=== PATIENT | male | born 1975 | race Hispanic/Latino ===

== ENCOUNTER 2017-03-25 14:46 | Emergency (ER) | payer SELFPAY | END 2017-03-25 15:00 | disposition left against medical advice (07) | LOC: ED 14:46 | DX: K08.89 Other specified disorders of teeth and supporting structures (principal); Z53.21 Procedure and treatment not carried out due to patient leaving prior to being seen by health care provider ==

== ENCOUNTER 2017-03-27 14:26 | Inpatient (IN) | payer SELFPAY ==
[2017-03-27] MEDS ORDERED: MORPHINE IV ONE (16:17)
[2017-03-27] MEDS ORDERED: ZOFRAN IV ONE ×2 (16:17→17:07)
[2017-03-27 17:02] LABS: Basophils % (Auto) 0.8 % (0.0-1.8); Eosinophils % (Auto) 0.4 % (0.0-4.3); Hemoglobin 11.3 gm/dl (11.8-15.2); Mean Corpuscular HGB Conc 32 % (32-34); Mean Corpuscular Hemoglobin 27 pg (28-32); Mean Corpuscular Volume 84 fl (84-94); Platelet Count 263 K/mm3 (140-440); Red Blood Count 4.15 M/mm3 (3.65-5.03); White Blood Count 8.7 K/mm3 (4.5-11.0)
[2017-03-27] MEDS ORDERED: NACL 0.9% 1000 ML 2,000 ML ONE (17:06)
[2017-03-27] MEDS ORDERED: NACL 0.9% 1000 ML 2,000 ML IV ONE (17:07)
[2017-03-27 17:22] LABS: Anion Gap 35 mmol/L; BUN/Creatinine Ratio 19.52; Blood Urea Nitrogen 41 mg/dL (9-20); Calcium 9.5 mg/dL (8.4-10.2); Carbon Dioxide 16 mmol/L (22-30); Chloride 86.9 mmol/L (98-107); Glucose 457 mg/dL (75-100); Potassium 5.4 mmol/L (3.6-5.0); Sodium 132 mmol/L (137-145)
[2017-03-27] MEDS ORDERED: D50W (25GM) IV PRN ×3 (17:26→17:59)
--- NOTE | 2017-03-27 17:40 | Emergency Department Report ---
HPI - General Chief Complaint: Dizziness Time Seen by Provider: 03/27/17 16:08 - HPI HPI: The patient is a 42-year-old male with a history of type 1 diabetes, who presents for evaluation of abdominal pain and ill-filling. The patient reports upper abdominal pain since last night, nearly 24 hours ago, constant since onset , currently mild, 5/10 in severity, crampy in quality, exacerbated with retching. He also reports associated nausea and multiple episodes of nonbilious , nonbloody emesis, boarded blood. He states that his symptoms feel consistent with previous episodes of DKA. The patient denies fever, chills, night sweats, diarrhea, blood in the stool, dark tarry stool, dysuria, hematuria, flank pain, genital discharge, inability to pass flatus. ED Past Medical Hx - Past Medical History Hx Hypertension: No Hx Heart Attack/AMI: No Hx Congestive Heart Failure: No Hx Diabetes: Yes Hx Deep Vein Thrombosis: No Hx Pulmonary Embolism: No Hx GERD: No Hx Liver Disease: Yes (hep c) Hx Renal Disease: No Hx Arthritis: No Hx Kidney Stones: No Hx Asthma: No Hx COPD: No Hx Tuberculosis: No Hx HIV: No Additional medical history: Hepatitis C - Surgical History Hx Coronary Stent: No Hx Open Heart Surgery: No Hx Pacemaker: No Hx Internal Defibrillator: No Hx Cholecystectomy: No Hx Appendectomy: No Hx Breast Surgery: No Additional Surgical History: tonsillectomy - Social History Smoking Status: Current Every Day Smoker Substance Use Type: None - Medications Home Medications: Home Medications Medication Instructions Recorded Confirmed Last Taken Type Xanax TAB 0.5 mg PO BID 07/26/16 03/27/17 03/26/17 History Insulin Lispro [Humalog Kwikpen 10 units SQ TIDAC 03/27/17 03/27/17 03/26/17 History U-100] Lantus Solostar 15 units SQ HS 03/27/17 03/27/17 03/26/17 History ED Review of Systems ROS: Stated complaint: DIABETIC Other details as noted in HPI Physical Exam - Physical Exam Vital Signs: Vital Signs 03/27/17 03/27/17 03/27/17 15:38 16:30 16:48 Temperature 97.8 F Pulse Rate 102 H 84 Respiratory 16 18 18 Rate Blood Pressure 90/52 Blood Pressure 105/64 [Left] O2 Sat by Pulse 100 100 100 Oximetry Physical Exam: General: well-nourished, well-developed, no acute distress Head: Normocephalic, atraumatic Eyes: normal sclera ENT: Mucous membranes are pale and dry Neck: No neck stiffness, no cervical adenopathy Respiratory: Breath sounds equal bilaterally, no wheezing, rales, or rhonchi Cardio: S1 and S2 present, no murmurs, rubs, gallops, capillary refill is delayed Abdomen: Normoactive bowel sounds, soft abdomen, epigastric and periumbilical tenderness to palpation present, no rigidity, no guarding or rebound tenderness Musc: No pitting edema Skin: No rash Neuro: no facial drooping, normal speech Psych: Normal affect ED Course Vital Signs 03/27/17 03/27/17 03/27/17 15:38 16:30 16:48 Temperature 97.8 F Pulse Rate 102 H 84 Respiratory 16 18 18 Rate Blood Pressure 90/52 Blood Pressure 105/64 [Left] O2 Sat by Pulse 100 100 100 Oximetry ED Medical Decision Making - Lab Data Result diagrams: 03/27/17 16:39 03/27/17 20:01 - Medical Decision Making The patient was seen and examined by myself. The patient is placed on a hall monitor and continuous pulse ox. On initial evaluation, the patient was found to be in no distress. Evaluation orders are placed. IV access is established and the patient is given 1 L normal saline fluid bolus for treatment of dehydration and hyperglycemia, and Zofran for nausea, and IV analgesic for pain. Multiple bedside assessments were performed to assess patient's responsiveness to medications and resuscitation. Lab results reveal elevated glucose level of 474, low pH of 7.24, elevated anion gap, low bicarbonate, consistent with DKA, elevated potassium level V.4, elevated creatinine of 2.1, and elevated lactic acid of 7.9. The patient is given additional normal saline fluid bolus, IV insulin bolus, and started on IV insulin drip. The on-call hospitalist service was contacted. They agreed to admit the patient for further treatment and close monitoring. The ED admit order was placed. The patient was admitted in guarded condition. Critical Care Time: Yes Critical care time in (mins) excluding proc time.: 35 Critical care attestation.: Due to the critical nature of this patients presentation, which necessitated multiple bedside assessments, manipulation and supportive measures to prevent further life threatening deterioration, I would like to bill for a total of 35 minutes of critical care time. This was exclusive of any separately billable procedures. Critical Care Time: 35 min ED Disposition Clinical Impression: Dehydration, Nausea and vomiting in adult, Abdominal pain, acute, epigastric, Acute hyperkalemia DKA, type 1 Qualifiers: Diabetes mellitus complication detail: with coma Qualified Code(s): E10.11 - Type 1 diabetes mellitus with ketoacidosis with coma Acute renal failure Qualifiers: Acute renal failure type: unspecified Qualified Code(s): N17.9 - Acute kidney failure, unspecified Disposition: [id number] OP ADMIT IP TO THIS HOSP Is pt being admited?: Yes Does the pt Need Aspirin: Yes Condition: Critical Time of Disposition: 17:40
[2017-03-27] MEDS ORDERED: BABY ASPIRIN PO ONE (17:41)
--- NOTE | 2017-03-27 17:56 | Admit Criteria Form ---
Admission Criteria Documentation: GENERAL ADMISSION CRITERIA (Place 'X' for any and all applicable criteria): Admission is indicated for ANY ONE of the following: [ ]I. Hemodynamic instability as indicated by ANY ONE of the following(1)(2) (3)(4)(5): [ ]a) Vital sign abnormality not readily corrected by appropriate treatment within 12 to 24 hours indicated by ANY ONE of the following: [ ]i) Hypotension [ ]ii) Symptomatic Tachycardia unresponsive to treatment (eg , analgesia, fluids, sedation as indicated) [ ]iii) Orthostatic vital sign changes unresponsive to treatment (eg, fluids) [ ]b) Vital sign abnormality that is severe indicated by ANY ONE of the following: [ ]i) Inadequate perfusion indicated by ANY ONE of the following: [ ]1) Lactic acidosis (greater than 2 mmol/L) [ ]2) New abnormal capillary refill (greater than 3 seconds) [ ]3) Other metabolic acidosis (arterial pH less than 7.35) not otherwise explained [ ]4) Reduced urine output [ ]5) Altered mental status [ ]6) Myocardial Ischemia [ ]v) Mean arterial pressure[A] less than 60 mm Hg [ ]vi) Mean arterial pressure[A] less than 70 mm Hg after 30 minutes of appropriate treatment (eg, fluid resuscitation) [ ]vii) IV inotropic or vasopressor medication required to maintain adequate blood pressure or perfusion [ ]viii) Sustained heart rate greater than 120 beats per minute in adult or child 6 years or older[B]] [ ]II. Hypertension requiring inpatient treatment as indicated by ANY ONE of the following(6)(7)(8): [ ]a) SBP greater than 220 mm Hg or DBP greater than 120 mm Hg despite treatment [ ]b) SBP greater than 140 mm Hg or DBP greater than 100 mm Hg with evidence of acute end organ damage as indicated by ANY ONE of the following: [ ]i) Encephalopathy [ ]ii) Acute renal failure as indicated by new onset of ANY ONE of the following(9)(10)(11)(12)(13): [ ]1) A 3-fold rise in serum creatinine from baseline [ ]2) Serum creatinine greater than 4 mg/dL ( 354 micromoles/L) with acute rise greater than 0.5 mg/dL (44.2 micromoles/L) [ ]3) Reduction of more than 75% in estimated glomerular filtration rate from baseline [ ]4) Estimated glomerular filtration rate less than 35 mL/min/1.73m2 (0.59 mL/sec/1.73m2) in child up to 18 years of age [ ]5) Cessation of urine output indicated by ALL of the following: [ ]A. Adequate volume status [ ]B. Inadequate urine output as indicated by ANY ONE of the following: [ ]a. Urine output less than 0.3 mL/kg/hr for 24 hours [ ]b. Anuria (urine output less than 0.1 mL/kg/hr) for 12 hours [ ]iii) Aortic dissection [ ]iv) Myocardial ischemia [ ]v) Left ventricular heart failure [ ]vi) Retinal hemorrhage [ ]vii) Other significant finding [ ]c) Hypertension in child requiring inpatient treatment as indicated by ALL of the following(14)(15)(16): [ ]i) Outpatient treatment not effective, not available, or not appropriate [ ]ii) SBP or DBP greater than 95th percentile for age [ ]iii) Evidence of acute end organ damage as indicated by ANY ONE of the following: [ ]1) Altered mental status [ ]2) Acute renal failure as indicated by new onset of ANY ONE of the following(9)(10)(11)(12)(13): [ ]A. A 3-fold rise in serum creatinine from baseline [ ]B. Serum creatinine greater than 4 mg/dL (354 micromoles/L) with acute rise greater than 0.5 mg/dL (44.2 micromoles/L) [ ]C. Reduction of more than 75% in estimated glomerular filtration rate from baseline [ ]D. Estimated glomerular filtration rate less than 35 mL/min/1.73m2 (0.59 mL/sec/1.73m2)in child up to 18 years of age [ ]E. Cessation of urine output indicated by ALL of the following: [ ]a. Adequate volume status [ ]b. Inadequate urine output as indicated by ANY ONE of the following: [ ]1) Urine output less than 0.3 mL/kg/hr for 24 hours [ ]2) Anuria (urine output less than 0.1 mL/kg/hr) for 12 hours [ ]3) Severe headache [ ]4) Visual disturbance [ ]5) Retinal hemorrhage [ ]6) Other significant finding [ ]III. Acute cardiac or peripheral ischemia as indicated by ANY ONE of the following: [ ]a) Acute coronary syndrome(17)(18) [ ]b) Acute peripheral ischemia (eg, pulseless, cool, mottled, or cyanotic extremity)(19) [ ]IV. Cardiac arrhythmias or findings of immediate concern indicated by ANY ONE of the following(20)(21): [ ]a) Heart rhythms that are inherently dangerous or unstable indicated by ANY ONE of the following(22)(23)(24): [ ]i) Resuscitated ventricular fibrillation or cardiac arrest [ ]ii) Ventricular escape rhythm [ ]iii) Sustained ventricular tachycardia (30 seconds or more of ventricular rhythm at greater than 100 beats per minute) [ ]iv) Nonsustained ventricular tachycardia and ANY ONE of the following: [ ]1) Suspected cardiac ischemia as cause or consequence of ventricular tachycardia [ ]2) In setting of acute myocarditis [ ]b) Unstable cardiac conduction defects indicated by ANY ONE of the following(24)(25)(26): [ ]i) Type II second-degree atrioventricular block [ ]ii) Third-degree atrioventricular block [ ]iii) New-onset left bundle branch block with suspected myocardial ischemia [ ]c) Any heart rhythm and ANY ONE of the following(22)(23)(27)(28)( 29): [ ] i) Continuous long-term ECG monitoring needed (eg, initiation of drug requiring monitoring for more than 24 hours) [ ] ii) Patient has automatic implanted cardioverter defibrillator that is repeatedly firing, malfunctioning, or in need of immediate adjustment of settings beyond the scope of ambulatory or observation care. [ ]d) Heart rhythms of concern due to ANY ONE of the following: [ ]i) Hypotension [ ]ii) Respiratory distress [ ]iii) Association with other significant symptoms (eg, bradycardia with syncope or ongoing dizziness, supraventricular tachycardia with chest pain) (27)(28) (30) [ ] V. Severe heart failure as indicated by ANY ONE of the following ( 31)(32): [ ]a) Respiratory distress [ ]b) Hypotension [ ]c) Anasarca (refractory to outpatient therapy) [ ]d) Cardiac arrhythmias of immediate concern [ ]e) Myocardial ischemia [ ]. Respiratory abnormalities, including ANY ONE of the following(33)(34) (35)(36): [ ]a) Respiratory rate greater than 30 breaths per minute unresponsive to treatment [A] [ ]b) New saturation of arterial oxygen less than 90% [ ]c) New partial pressure of carbon dioxide greater than 44 mm Hg ( 5.9 kPa) [ ]d) Supplemental oxygen or respiratory treatments needed that are new or not performable at other levels of care [ ]e) New-onset cyanosis [ ]f) Inability to protect airway [ ]g) Chronic lung disease with severe deterioration (not responsive to emergency and observation care treatment as appropriate) as indicated by ANY ONE of the following(34)(36 ): [ ]i) SaO2 5% below baseline in patient with chronic hypoxemia [ ]ii) New requirement for supplemental oxygen to keep SaO2 at baseline or acceptable level [ ]iii) Required supplemental oxygen performable only in acute inpatient setting [ ]iv) Severe airflow or ventilation abnormalities [ ]v) Previously mobile patient unable to walk between rooms [ ]vi Inability to eat or sleep due to dyspnea [ ]vii) Rapid rate of exacerbation onset [ ]viii) Altered mental status ]VII. Severe airflow or ventilation abnormalities (not responsive to emergency and observation care treatment as appropriate) as indicated by ANY ONE of the following(33)(34)(35)(37): [ ]a) PCO2 greater than 42 mm Hg (5.6 kPa) and pH less than 7.35 (new ) [ ]b) Documented PCO2 increased more than 5 mm Hg (0.7 kPa) from disease baseline [ ]c) Airflow measurements [B] less than 60% of previous best or predicted (eg, peak expiratory flow rate less than 300 L/minute) despite intensive emergent treatment [C] [ ]d) Required respiratory treatments that are performable only in acute inpatient setting [ ]VIII. Impending or actual respiratory arrest ( Also use Respiratory Failure GRG for severe respiratory disease and long-term mechanical ventilation patients) [ ]IX. Neurologic abnormalities, including ANY ONE of the following: [ ]a) New findings that suggest ANY ONE of the following: [ ]i) CHIP PERSON infection(38) [ ]ii) Cerebral bleeding, ischemia, or vasospasm(39)(40) [ ]iii) Increased intracranial pressure, hydrocephalus, or cerebral edema(41)(42)(43) [ ]iv) Spinal cord injury(44) [ ]b) Uncontrolled seizures(45) [ ]c) New-onset coma (eg, [place] coma scale score less than 9) or unexplained abnormal mental status (eg, [place] coma scale score less than 14) [D](41)(46)(47) [ ]X. New-onset severe neurologic findings requiring inpatient care; examples include(42)(48)(49): [ ]a) Papilledema [ ]b) Cerebral edema [ ]c) Mass effect on CT scan [ ]XI. Suspected acute intra-abdominal process with peritoneal signs, abdominal mass, or similar findings (50)(51)(52) [X ]XII. Severe physiologic disorder remaining after emergency or observation level care (as appropriate) as indicated by ANY ONE of the following (53): [X ]a) Significant dehydration [X ]b) Diabetic ketoacidosis [ ]c) Hyperglycemic hyperosmolar state (eg, osmolality greater than 320 mOsm/kg (mmol/kg) [ ]d) Hypoglycemia [ ]e) Other (new) acid-base disorder with pH less than 7.35 or greater than 7.5(54) [ ]f) Thyroid storm (55) [ ]g) Myxedema coma (55) [ ]XIII. Abdominal abnormalities with ANY ONE of the following(56)(57): [ ]a) Absent bowel sounds with complete ileus [ ]b) Signs of intestinal obstruction or peritonitis [E] [ ]c) Nausea and vomiting that cannot be controlled with outpatient or observation care [ ]XIV. Acute renal failure as indicated by new onset of ANY ONE of the following(9)(10)(11)(12)(13): [ ]a) A 3-fold rise in serum creatinine from baseline [ ]b) Serum creatinine greater than 4 mg/dL (354 micromoles/L) with acute rise greater than 0.5 mg/dL (44.2 micromoles/L) [ ]c) Reduction of more than 75% in estimated glomerular filtration rate from baseline [ ]d) Estimated glomerular filtration rate less than 35 mL/min/ 1.73m2 (0.59 mL/sec/1.73m2) in child up to 18 years of age [ ]e) Cessation of urine output indicated by ALL of the following: [ ]i) Adequate volume status [ ]ii) Inadequate urine output as indicated by ANY ONE of the following: [ ]1) Urine output less than 0.3 mL/kg/hr for 24 hours [ ]2) Anuria (urine output less than 0.1 mL/kg/hr) for 12 hours [ ]XV. Significant uremic complications as indicated by ANY ONE of the following(58)(59)(60): [ ]a) Outpatient therapy is ineffective or not feasible for ANY ONE of the following: [ ]i) Severe heart failure [ ]ii) Severehypertension [ ]iii) Pleural effusion [ ]iv) Pericarditis or pericardial effusion [ ]b) Cardiac arrhythmias of immediate concern [ ]c) Intractable nausea or vomiting [ ]d) Recurrent seizures [ ]e) Encephalopathy [ ]f) Bleeding abnormalities (eg, platelet dysfunction) with active (eg, gastrointestinal) bleeding [ ]g) Dialysis indicated before long-term access or ambulatory arrangements can be made [ ]h) Significant metabolic or electrolyte abnormalities (eg, severe acidosis or hyperkalemia) [ ]XVI. High fever or other high-risk infection situation as indicated by ANY ONE of the following(61)(62)(63)(64): [ ]a) Outpatient and observation care antimicrobial treatment unavailable, not effective, or not appropriate [ ]b) Documented bacteremia [ ]c) Temperature greater than 40.5 degrees C (104.9 degrees F) ( oral) [ ]d) Temperature greater than 39.5 degrees C (103.1 degrees F) ( oral) or less than 36 degrees C (96.8 degrees F) (rectal) that does not respond to e treatment and observation care [ ] XVII. Temperature less than 95 degrees F (35 degrees C)(rectal)(65) [ ] XVIII. Severe nutritional abnormalities as indicated by ALL of the following (66)(67): [ ]a) Inability to tolerate or establish sufficient oral or other enteral nutrition in outpatient setting [ ]b) Parenteral nutrition regimen need that must be implemented on inpatient basis [ ] XIX. Severe electrolyte abnormalities indicated by ALL of the following(68) (69)(70): [ ]a) Electrolytes and associated findings are not as expected for patient baseline or acceptable treatment effects. [ ]b) Severe abnormalities indicated by ANY ONE of the following: [ ]i) Sodium less than 130 mEq/L (mmol/L) (new) [ ]ii)Sodium less than 135 mEq/L (mmol/L) with ANY ONE of the following: [ ]1) Uncorrectable (to near normal or chronic baseline) after trial of outpatient and emergency treatment [ ]2) Altered mental status [ ]3) Seizures [ ]4) Severe medical etiology requiring inpatient management (eg, heart failure, hypovolemia) [ ]iii) Sodium greater than 155 mEq/L (mmol/L) [ ]iv) Sodium greater than 150 mEq/L (mmol/L) with ANY ONE of the following: [ ]1) Uncorrectable (to near normal or chronic baseline) with outpatient and emergency treatment [ ]2) Altered mental status [ ]3) Seizures [ ]4) Severe medical etiology (eg, hypovolemia, diabetes insipidus) [ ]v) Potassium less than 2.5 mEq/L (mmol/L) despite outpatient and emergency treatment [ ]vi) Potassium less than 3 mEq/L (mmol/L) with ANY ONE of the following: [ ]1) Weakness [ ]2) Cardiac abnormality (eg, arrhythmia, conduction disturbance) [ ]3) Cardiac ischemia [ ]4) Ileus [ ]5) Ongoing medical cause requiring inpatient management (eg, acute renal wasting or SIADH) [ ]6) Other severe symptoms [ ]vii) Potassium greater than 6.5 mEq/L (mmol/L) [ ]viii) Potassium greater than 5 mEq/L (mmol/L) with ANY ONE of the following: [ ]1) Uncorrectable (to near normal or chronic baseline) with outpatient and emergency treatment [ ]2) Severe ECG findings [F] [ ]3) Acute worsening of renal failure (creatinine greater than 2.5 mg/dL (221 micromoles/L) or significant elevation for age and size) [ ]4) Severe weakness [ ]5) Severe medical etiology (eg, hemolysis, infection, drug overdose) [ ]ix) Calcium less than 7 mg/dL (1.75 mmol/L) despite outpatient and emergency treatment (72) [ ]x) Calcium less than 8 mg/dL (2 mmol/L) with significant symptoms or findings; examples include(72): [ ]1) Altered mental status [ ]2) Muscle spasms [ ]3) Seizures [ ]4) Breathing difficulty [ ]5) Cardiac abnormality (eg, arrhythmia or conduction disturbance) [ ]xi) Calcium greater than 14 mg/dL (3.5 mmol/L)(72) [ ]xii) Calcium greater than 12 mg/dL (3 mmol/L) with ANY ONE of the following(72): [ ]1) Uncorrectable (to near normal or chronic baseline) with outpatient and emergency treatment [ ]2) Significant dehydration or hypovolemia as indicated by ALL of the following(70)(73)(74): [ ]A. Not resolved with initial treatments [ ]B. Clinically significant dehydration as indicated by ANY ONE of the following: [ ]a. Vomiting refractory to outpatient treatment (ie, precluding oral rehydration) [ ]b. Inability to drink [ ]c. Hypernatremia or other electrolyte abnormality unable to be corrected with outpatient and emergency treatment [ ]d. Failure to remain hydrated with outpatient therapy [ ]e. Reduced urine output [ ]f. Hypotension [ ]g. Serious cause for dehydration requiring acute hospitalization (eg, bowel obstruction, increased intracranial pressure, infectious cause) [ ]h. Child with ANY ONE of the following(75): [ ]1) Severe abdominal tenderness [ ]2) Adequate care not available at home [ ]3) Severe dehydration ( greater than 9% loss of body weight) [ ]4) Significant symptoms or findings; examples include: [ ]A. Altered mental status [ ]B. Cardiac abnormality (eg, arrhythmia, conduction disturbance) [ ]C. Malignant etiology requiring inpatient treatment [ ]xiii) Phosphorus less than 1 mg/dL (0.32 mmol/L) [ ]xiv) Phosphorus less than 1.5 mg/dL (0.48 mmol/L) with ANY ONE of the following: [ ]1) Patient unresponsive to outpatient and emergency treatment [ ]2) Significant symptoms or findings; examples include: [ ]A. Weakness [ ]B. Altered mental status [ ]C. Breathing difficulty [ ]D. Seizures [ ]E. Rhabdomyolysis [ ]xv) Phosphorus greater than 10 mg/dL (3.2 mmol/L) [ ]xvi) Phosphorus greater than 4.5 mg/dL (1.45 mmol/L) (new) with ANY ONE of the following: [ ]1) Severe medical etiology (eg, crush injury, acute renal failure) [ ]2) Associated hypocalcemia with significant findings; examples include: [ ]A. Neurologic symptoms [ ]B. Altered mental status [ ]C. Muscle spasms [ ]D. Seizures [ ]E. Breathing difficulty [ ]F. Cardiac abnormality (eg, arrhythmia, conduction disturbance) [ ]xvii) Magnesium less than 1 mg/dL (0.41 mmol/L) [ ]xviii) Magnesium less than 1.5 mg/dL (0.62 mmol/L) with ANY ONE of the following: [ ]1) Patient unresponsive to outpatient and emergency treatment [ ]2) Associated hypocalcemia with significant findings; examples include: [ ]A. Altered mental status [ ]B. Muscle spasms [ ]C. Seizures [ ]D. Breathing difficulty [ ]E. Cardiac abnormality (eg, arrhythmia , conduction disturbance) [ ]3) Associated hypokalemia (potassium less than 3 mEq/L (mmol/L)) with risk of arrhythmia [ ]xix) Magnesium greater than 4 mEq/L (2 mmol/L) [ ]xx) Magnesium greater than 2.5 mEq/L (1.25 mmol/L) with significant symptoms or findings; examples include: [ ]1) Weakness [ ]2) Altered mental status [ ]3) Cardiac abnormality (eg, arrhythmia, conduction disturbance) [ ]4) Breathing difficulty [ ]5) Severe medical etiology (eg, renal failure, hypovolemia) [ ]xxi) Uric acid greater than 20 mg/dL (1190 micromoles/L)(76) [ ]xxii) Uric acid greater than 8 mg/dL (476 micromoles/L) with significant symptoms or findings of tumor lysis syndrome; examples include(76): [ ]1) Creatinine greater than 1.5 times upper limit of normal [ ]2) Cardiac abnormality (eg, arrhythmia, conduction disturbance) [ ]3) Seizure [ ]XX. Acute blood loss causing significant abnormality as indicated by ANY ONE of the following(77)(78): [ ]a) Hemoglobin less than 10 g/dL (100 g/L) (not baseline) [ ]b) Hematocrit less than 30% (0.30) (not baseline) [ ]c) Repeat hematocrit decreased more than 2% (0.02) [ ]d) Uncontrolled bleeding [ ]XXI. Severe anemia indicated by ANY ONE of the following(78)(79): [ ]a) Altered mental status [ ]b) Chest pain [ ]c) Exertional dyspnea [ ]d) Syncope [ ]e) Other findings suggesting inadequate perfusion [ ]f) Treatment with transfusion or volume replacement is ineffective at resolving ANY ONE of the following [G]: [ ]i) Tachycardia for age [ ]ii) Orthostatic vital sign changes as indicated by ANY ONE of the following(80): [ ]1) Fall in SBP of 20 mm Hg or more 1 to 3 minutes after patient sits or stands from recumbent position [ ]2) Fall in DBP of 10 mm Hg or more 1 to 3 minutes after patient sits or stands from recumbent position [ ]XXII. High-risk low platelet count as indicated by ANY ONE of the following( 81)(82): [ ]a) Severe or life-threatening bleeding (eg, intracranial, major gastrointestinal, or extensive mucosal bleeding), with any reduced platelet count [ ]b) Platelet count less than 20,000/mm3 (20 x109/L) with any active bleeding [ ]c) Platelet count less than 10,000/mm3 (10 x109/L) with minor purpura or petechiae [ ]d) Platelet count less than 5000/mm3 (5 x109/L) [ ]e) Low platelet count with hemolytic anemia [ ]XXIII. Disseminated intravascular coagulation(77)(83) [ ]XXIV. Severe adverse drug or systemic toxin reaction requiring inpatient treatment; examples include(84)(85): [ ]a) Serotonin syndrome(86) [ ]b) Neuroleptic malignant syndrome(86) [ ]c) Cholinergic syndrome with severe symptoms (eg, bronchorrhea, weakness, mental status changes, seizures) [ ]d) Sympathetic syndrome with severe symptoms (eg, seizures, mental status changes, cardiac dysrhythmias) [ ]e) Anticholinergic syndrome [ ]XXV. Severe pain requiring acute inpatient management as indicated by ALL of the following (87)(88)(89): [ ]a) Continuous or frequent (eg, every 2 to 4 hours) parenteral analgesics required [H] [ ]b) Rapid improvement expected from treatment or acute intervention (eg, surgery, anesthesia procedure) [ ]XXVI.Severe behavioral health issues judged unmanageable at a lower level of care (eg, residential) in a patient who is ANY ONE of the following(91) [ ]a) Acutely suicidal [ ]b) A danger to self (eg, self-mutilating or suicidal behavior) [ ]c) A danger to others (eg, assaultive or homicidal behavior) [ ]d) Incapacitated because of grave disability (eg, inability to provide for self at lower level of care) (92) [ ]XXVII. Inpatient monitoring needed; examples include(1)(3)(87)(93)(94)(95)(96 ): [ ]a) Vital signs, neurologic signs, or vascular checks more frequently than every 4 hours [ ]b) Cardiac or respiratory monitoring beyond the scope (eg, over 24 hours) of observation care [ ]c) Pulmonary artery catheter monitoring [ ]d) Suspected compartment syndrome(97) (98) [ ]e) Cerebral bleeding, hydrocephalus, or vasospasm monitoring [ ]f) Increased intracranial pressure or cerebral edema monitoring [ ]g) monitoring [ ]XXVIII. Treatment requiring inpatient care; examples include: [ ]a) IV fluid to replace significant ongoing losses (greater than 3 L/m2 per day)(53) [ ]b) High concentration oxygen (greater than 40%)(33)(99)(100) [ ]c) Frequent respiratory therapy (more frequently than every 4 hours) to maintain airflow rates greater than 60% of baseline(33)(99)(100) [ ]d) Epidural analgesia(87) [ ]e) IV anticoagulation, vasoactive, or antiarrhythmic medication(19 )(23) [ ]f) Acute thrombolytics (generally require 24 hours of observation )(101)(102) [ ]XXIX. Emergency procedures needed; examples include: [ ]a) Emergency inpatient surgery [ ]b) Temporary pacemaker placement(103) [ ]c) Chest tube placement with active evacuation (eg, suction, drainage)(104) [ ]d) Emergent cardioversion(105) [ ]e) Emergent cardiac or vascular procedures (eg, cardiac catheterization, angioplasty) (17)(18) [ ]f) Emergent dialysis access placement and institution(10)(106) [ ]g) Emergent pericardiocentesis(107) [ ]h) Emergent plasmapheresis or leukapheresis(83) [ ]i) Emergent tracheostomy The original [employer] content created by [employer] has been revised. The portions of the content which have been revised are identified through the use of italic text or in bold, and [employer] has neither reviewed nor approved the modified material. All other unmodified content is copyright [employer]. Please see references footnoted in the original [employer] edition 2016 Admission Criteria Met: Yes
[2017-03-27] MEDS ORDERED: DUONEB *Not for PRN Use IH (17:59)
[2017-03-27] MEDS ORDERED: NACL 0.9% 1000 ML 1,000 ML IV ONE (17:59)
[2017-03-27] MEDS ORDERED: NovoLIN R 100 UNITS in NACL 0.9% 99 ML IV SCH ×2 (18:00)
[2017-03-27] MEDS ORDERED: D5W/0.45% NACL/KCL 20 MEQ 20 MEQ/1,000 ML BAG IV SCH (18:00)
--- NOTE | 2017-03-27 18:04 | History and Physical Report ---
History of Present Illness Chief complaint: Im in DKA History of present illness: 42 YO Male with DM, HCV, Nicotine Dependence presents to ED for evaluation. Pt states that has experienced Nausea, vomiting, abdominal pain for the past 24 hours with worsening symptoms over the past 4 hours. Pt states that the ab pain followed the nausea and vomiting, constant in nature, mild in severity, 5/10 in severity, crampy in quality, exacerbated with retching, relieved with not vomiting. Patient denies fever, chills, CP, Palpitations, night sweats, diarrhea, BRBPR, dark tarry stool, dysuria, hematuria, flank pain, genital discharge, inability to pass flatus, recent ill contacts, or noncompliance with medication. Past History Past Medical History: diabetes, hepatitis, other (Nicotine Dependence) Past Surgical History: tonsillectomy Social history: , smoking. denies: alcohol abuse, prescription drug abuse, IV drug use Family history: diabetes, hypertension Medications and Allergies Allergies Allergy/AdvReac Type Severity Reaction Status Date / Time No Known Allergies Allergy Verified 07/26/16 17:02 Home Medications Medication Instructions Recorded Confirmed Last Taken Type Xanax TAB 0.5 mg PO BID 07/26/16 03/27/17 03/26/17 History Insulin Lispro [Humalog Kwikpen 10 units SQ TIDAC 03/27/17 03/27/17 03/26/17 History U-100] Lantus Solostar 15 units SQ HS 03/27/17 03/27/17 03/26/17 History Active Meds: Active Medications Albuterol/Ipratropium (Duoneb *Not For Prn Use*) 1 ampul IH Q6HRT PRN PRN Reason: Wheezing Dextrose (D50w (25gm)) 0 ml IV PRN PRN PRN Reason: Hypoglycemia Dextrose (D50w (25gm)) 0 ml IV PRN PRN PRN Reason: Hypoglycemia Dextrose (D50w (25gm)) 0 ml IV ONCE PRN PRN Reason: Hypoglycemia Sodium Chloride (Nacl 0.9% 1000 Ml) 2,000 mls @ 999 mls/hr IV BOLUS ONE Stop: 03/27/17 19:07 Last Admin: 03/27/17 17:12 Dose: 999 mls/hr Insulin Human Regular 100 (units/ Sodium Chloride) 100 mls @ 1 mls/hr IV TITR SHELIA; 1 UNITS/HR PRN Reason: Protocol Potassium Chloride/Dextrose/Sod Cl (D5w/0.45% Nacl/Kcl 20 Meq) 20 meq in 1,000 mls @ 125 mls/hr IV DIRECT SHELIA Sodium Chloride (Nacl 0.9% 1000 Ml) 1,000 mls @ 999 mls/hr IV BOLUS ONE Stop: 03/27/17 18:59 Insulin Human Regular 100 (units/ Sodium Chloride) 100 mls @ 1 mls/hr IV TITR SHELIA; 1 UNITS/HR PRN Reason: Protocol Review of Systems All systems: negative Constitutional: no weight loss, no night sweats Ears, nose, mouth and throat: no ear pain Cardiovascular: no chest pain Respiratory: no cough Gastrointestinal: abdominal pain, nausea, vomiting Genitourinary Male: no dysuria Rectal: no pain Musculoskeletal: no neck stiffness Integumentary: no rash Neurological: no head injury Psychiatric: no anxiety Endocrine: polyphagia, polydipsia, polyuria, no cold intolerance Hematologic/Lymphatic: no easy bruising Allergic/Immunologic: no urticaria Exam - Constitutional Vitals: Temp Pulse Resp BP Pulse Ox 97.8 F 84 18 105/64 100 03/27/17 15:38 03/27/17 16:30 03/27/17 16:48 03/27/17 16:30 03/27/17 16:48 General appearance: Present: mild distress - EENT Eyes: Present: PERRL ENT: hearing intact, clear oral mucosa - Neck Neck: Present: supple, normal ROM - Respiratory Respiratory effort: normal Respiratory: bilateral: CTA - Cardiovascular Heart Sounds: Present: S1 & S2. Absent: rub, click - Extremities Extremities: pulses symmetrical, No edema Peripheral Pulses: within normal limits - Abdominal General gastrointestinal: Present: soft, non-tender, non-distended, normal bowel sounds Male genitourinary: Present: normal - Integumentary Integumentary: Present: clear, warm, dry - Musculoskeletal Musculoskeletal: gait normal, strength equal bilaterally - Psychiatric Psychiatric: appropriate mood/affect, intact judgment & insight - Neurologic Neurologic: CNII-XII intact, moves all extremities Results - Labs CBC & Chem 7: 03/27/17 16:39 03/27/17 20:01 Labs: Abnormal lab results 03/27/17 03/27/17 03/27/17 Range/Units 15:46 16:39 16:39 Hgb 11.3 L (11.8-15.2) gm/dl Hct 35.0 L (35.5-45.6) % MCH 27 L (28-32) pg RDW 16.0 H (13.2-15.2) % VBG pH (7.320-7.420) Sodium 132 L (137-145) mmol/L Potassium 5.4 H (3.6-5.0) mmol/L Chloride 86.9 L (98-107) mmol/L Carbon Dioxide 16 L (22-30) mmol/L BUN 41 H (9-20) mg/dL Creatinine 2.1 H (0.8-1.5) mg/dL Glucose 457 H (75-100) mg/dL POC Glucose 474 H (70-105) Lactic Acid (0.7-2.0) mmol/L 03/27/17 03/27/17 Range/Units 16:39 17:30 Hgb (11.8-15.2) gm/dl Hct (35.5-45.6) % MCH (28-32) pg RDW (13.2-15.2) % VBG pH 7.242 L (7.320-7.420) Sodium (137-145) mmol/L Potassium (3.6-5.0) mmol/L Chloride (98-107) mmol/L Carbon Dioxide (22-30) mmol/L BUN (9-20) mg/dL Creatinine (0.8-1.5) mg/dL Glucose (75-100) mg/dL POC Glucose (70-105) Lactic Acid 7.90 H* (0.7-2.0) mmol/L Assessment and Plan - Patient Problems (1) DKA, type 1 Current Visit: Yes Status: Acute Qualifiers: Diabetes mellitus complication detail: with coma Qualified Code(s): E10.11 - Type 1 diabetes mellitus with ketoacidosis with coma Plan to address problem: Insulin drip, DKA protocol, montor uop q shift, serial bmp to monitor anion gap , The high probability of a clinically significant, sudden or life threatening deterioration of the [endocrine, pulmonary, dardiac, renal] system(s) required my full and direct attention, intervention and personal management. The aggregate critical care time was [65] minutes. This time is in addition to time spent performing reported procedures but includes the following: [x] Data Review and interpretation [x] Patient assessment and monitoring of vital signs [x] Documentation [x] Medication orders and management (2) Hyponatremia syndrome Current Visit: Yes Status: Acute Plan to address problem: IVF replacement, repeat bmp, (3) Acute renal failure Current Visit: Yes Status: Acute Qualifiers: Acute renal failure type: unspecified Qualified Code(s): N17.9 - Acute kidney failure, unspecified Plan to address problem: IVF replacement, supportive care, monitor uop q shift, positive fluid balance overnight, bmp in am (4) Metabolic acidosis Current Visit: No Status: Acute Plan to address problem: Treat DKA, monitor anion gap with serial bmp (5) DVT prophylaxis Current Visit: Yes Status: Acute
[2017-03-27] MEDS ORDERED: PROVENTIL IH PRN (18:09)
[2017-03-27 18:27] LABS: Magnesium 2.1 mg/dL (1.7-2.3); Phosphorous 5.7 mg/dL (2.5-4.5)
[2017-03-27 18:52] LABS: BUN/Creatinine Ratio 20.5; Calcium 8.6 mg/dL (8.4-10.2); Magnesium 1.9 mg/dL (1.7-2.3); Phosphorous 4.9 mg/dL (2.5-4.5); Potassium 4.5 mmol/L (3.6-5.0)
[2017-03-27 20:33] LABS: BUN/Creatinine Ratio 22.94; Calcium 8.1 mg/dL (8.4-10.2); Chloride 96.6 mmol/L (98-107); Potassium 4.7 mmol/L (3.6-5.0)
[2017-03-27] MEDS ORDERED: XANAX 0.5 MG PO SCH (22:00)
[2017-03-27 22:25] LABS: BUN/Creatinine Ratio 25.33; Potassium 3.9 mmol/L (3.6-5.0)
[2017-03-27] MEDS: XANAX PO SCH (23:44)
[2017-03-28 00:52] LABS: Anion Gap 17 mmol/L; BUN/Creatinine Ratio 28.46; Blood Urea Nitrogen 37 mg/dL (9-20); Calcium 8.1 mg/dL (8.4-10.2); Carbon Dioxide 23 mmol/L (22-30); Glucose 67 mg/dL (75-100); Potassium 3.6 mmol/L (3.6-5.0); Sodium 133 mmol/L (137-145)
[2017-03-28] MEDS ORDERED: D50W (25GM) IV ONE (02:15)
[2017-03-28] MEDS: NOVOLOG SUB-Q SCH ×2 (03:11→07:50)
[2017-03-28 09:11] VITALS: BP 114/77
[2017-03-28] MEDS: XANAX PO SCH (10:24)
--- NOTE | 2017-03-28 10:29 | Discharge Summary ---
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 He presented with abd pains. He was diagnosed with DKA, however, no ketones were measured, no urinalysis were measured but his VBG was 7.242. He was started on insulin drip and quickly recovered. Insulin drip was stopped, he was downgraded from ICU and admitted to the medical floor. Currently, he is still well. He is tolerated a diet without any nausea vomiting or abdominal pains. As a matter of fact, I saw him in the lobby and I walked with him. He is feeling much better. -DKA also likely due to noncompliance, resolved, corrected anion gap Less than 14: Counseling done -Metabolic acidosis, improved -Acute renal failure, vasomotor nephropathy, present on admission -Hyponatremia due to worsening hyperglycemia -Insulin-dependent diabetes mellitus type 1 uncontrolled with hyperosmolar hyperglycemia, improved -Hypoglycemia, mild and resolved -Tobacco dependency: Counseling stopping, it appears he is going outside to smoke, counseled against this Disposition: DC-01 TO HOME OR SELFCARE Time spent for discharge: 36 minutes Core Measure Documentation - Palliative Care Palliative Care/ Comfort Measures: Not Applicable - Core Measures Any of the following diagnoses?: none - VTE Discharge Requirements Deep Vein Thrombosis/Pulmonary Embolism Present on Admission: No Has pt received <5 days of overlap therapy or INR<2.0: No Anticoagulant overlap therapy prescribed at discharge: No Contraindication No Overlap Therapy order at DC: Not Indicated Exam - Physical Exam Narrative exam: GEN: WDWN, NAD, AWAKE, ALERT, ORIENTATED x 3 HEENT: NCAT, PERRL, EOMI, OP CLEAR NECK: SUPPLE, NO THYROMEGALY, NO JVD, NO LAD CVS: RRR, NORMAL S1S2 LUNGS/CHEST: CTA B, NORMAL CHEST EXPANSION B, GOOD AIR ENTRY B ABD: SOFT, NTND, GBS, NO REBOUND OR GUARDING EXT/SKIN: NO SIGNIFICANT EDEMA MSK: FROM X 4 EXTREMITIES NEURO: CN 2-12 GROSSLY INTACT, NO FOCAL DEFICITS PSY: CALM - Constitutional Vitals: Temp Pulse Resp BP Pulse Ox 99.7 F H 82 20 114/77 99 03/28/17 07:00 03/28/17 07:00 03/28/17 07:00 03/28/17 07:00 03/28/17 07:00 Plan Activity: other (no strenous activites until cleared by PCP. ) Diet: diabetic Special Instructions: record daily BP diary Follow up with: PRIMARY CAREMD [Primary Care Provider] - 3-5 Days [facility] [Provider Group] - 7 Days Prescriptions: Insulin Lispro [Humalog 100 UNITS/ML Kwikpen] 1 dose SQ AC #1 pen
== END 2017-03-28 13:25 | disposition home or self-care (01) | DRG 637 ==
LOC: ED 14:26 → 3A 18:00
PROVIDERS: ADMIT Internal Medicine; ATTEND Internal Medicine
DX: E10.11 Type 1 diabetes mellitus with ketoacidosis with coma (principal); N17.0 Acute kidney failure with tubular necrosis; E87.1 Hypo-osmolality and hyponatremia; E87.2 Acidosis; F17.200 Nicotine dependence, unspecified, uncomplicated; Z83.3 Family history of diabetes mellitus; Z82.49 Family history of ischemic heart disease and other diseases of the circulatory system; E87.5 Hyperkalemia; E86.0 Dehydration; Z91.19 Patient's noncompliance with other medical treatment and regimen; F19.10 Other psychoactive substance abuse, uncomplicated; Z86.19 Personal history of other infectious and parasitic diseases; Z71.89 Other specified counseling; E10.65 Type 1 diabetes mellitus with hyperglycemia; E10.649 Type 1 diabetes mellitus with hypoglycemia without coma; Z71.6 Tobacco abuse counseling
CPT/HCPCS: 36415; 80048; 82140; 82805; 82962; 83036; 83735; 84100; 84484; 85025; 96360; 96361; 99291; J2405; J7030

== ENCOUNTER 2017-04-22 08:05 | Emergency (ER) | payer OTHER ==
[2017-04-22 12:00] VITALS: BP 100/65
--- NOTE | 2017-04-22 12:30 | Emergency Department Report ---
ED Extremity Problem HPI - General Chief complaint: BP Check / Ring removal req Stated complaint: LEFT HAND SWELLING/RING STUCK Time Seen by Provider: 04/22/17 11:55 Source: patient Mode of arrival: Ambulatory Limitations: No Limitations - History of Present Illness Initial comments: 42-year-old male with history of diabetes here with complaint of finger stuck on ring. Patient states that his finger started to swell yesterday he was unable to remove the ring. He went to the fire department today and they attempted to cut the ring off without success. He presents here because of knee pain and swelling. -: Gradual (1) Location: right (ring finger) Radiation: none Severity scale (0 -10): 0 Quality: aching Consistency: constant - Related Data Home Medications Medication Instructions Recorded Confirmed Last Taken Insulin Lispro [Humalog 100 10 units SQ TIDAC 03/27/17 03/27/17 03/26/17 UNITS/ML Kwikpen] Previous Rx's Medication Instructions Recorded Last Taken Type Insulin Lispro [Humalog 100 1 dose SQ AC #1 pen 03/28/17 Unknown Rx UNITS/ML Kwikpen] Lantus Solostar 15 units SQ HS #1 03/28/17 03/26/17 Rx Xanax TAB 0.5 mg PO BID #30 03/28/17 03/26/17 Rx Ibuprofen [Motrin 600 MG tab] 600 mg PO Q8H PRN #30 tablet 04/22/17 Unknown Rx Allergies Allergy/AdvReac Type Severity Reaction Status Date / Time No Known Allergies Allergy Verified 07/26/16 17:02 ED Review of Systems ROS: Stated complaint: LEFT HAND SWELLING/RING STUCK Other details as noted in HPI Constitutional: denies: chills, fever, weakness Skin: denies: rash, lesions, change in color, change in hair/nails Neurological: denies: headache, weakness Psychiatric: denies: anxiety, depression ED Past Medical Hx - Past Medical History Hx Hypertension: No Hx Heart Attack/AMI: No Hx Congestive Heart Failure: No Hx Diabetes: Yes Hx Deep Vein Thrombosis: No Hx Pulmonary Embolism: No Hx GERD: No Hx Liver Disease: Yes (hep c) Hx Renal Disease: No Hx Arthritis: No Hx Kidney Stones: No Hx Asthma: No Hx COPD: No Hx Tuberculosis: No Hx HIV: No Additional medical history: Hepatitis C - Surgical History Hx Coronary Stent: No Hx Open Heart Surgery: No Hx Pacemaker: No Hx Internal Defibrillator: No Hx Cholecystectomy: No Hx Appendectomy: No Hx Breast Surgery: No Additional Surgical History: tonsillectomy - Family History Family history: no significant - Social History Smoking Status: Current Every Day Smoker Substance Use Type: Alcohol - Medications Home Medications: Home Medications Medication Instructions Recorded Confirmed Last Taken Type Insulin Lispro [Humalog 100 10 units SQ TIDAC 03/27/17 03/27/17 03/26/17 History UNITS/ML Kwikpen] Insulin Lispro [Humalog 100 1 dose SQ AC #1 pen 03/28/17 Unknown Rx UNITS/ML Kwikpen] Lantus Solostar 15 units SQ HS #1 03/28/17 03/27/17 03/26/17 Rx Xanax TAB 0.5 mg PO BID #30 03/28/17 03/27/17 03/26/17 Rx Ibuprofen [Motrin 600 MG tab] 600 mg PO Q8H PRN #30 tablet 04/22/17 Unknown Rx ED Physical Exam - General Limitations: No Limitations General appearance: alert, other (uncomfortable appearing) - Head Head exam: Present: atraumatic, normocephalic - Expanded Upper Extremity Exam Right Hand L/R Front: 1 - Positive: other (significant edema) Neurosensory exam: Present: 2-point discrimination Vascular: Absent: vascular compromise - Neurological Exam Neurological exam: Present: alert, oriented X3 ED Course Vital Signs 04/22/17 04/22/17 08:15 11:58 Temperature 98.5 F 98.6 F Pulse Rate 84 86 Respiratory 20 18 Rate Blood Pressure 124/89 Blood Pressure 100/65 [Right] O2 Sat by Pulse 100 100 Oximetry - Procedure Description Procedures done: Ring removed from right fourth digit. Discussed the procedure with the patient. Patient's finger was wrapped in an umbilical tape. Edema was squeezed distally. Petroleum applied to the finger. Ring slid down to knuckle and then dental floss applied to knuckle edema removed to distal finger and ring was removed from the digit. Ice applied patient tolerated well. ED Medical Decision Making - Medical Decision Making Patient with Ring stuck on digit. Ring removed. Patient to be discharged. Patient has normal neurovascular status after ring removal. Critical care attestation.: If time is entered above; I have spent that time in minutes in the direct care of this critically ill patient, excluding procedure time. ED Disposition Clinical Impression: Foreign body (FB) in soft tissue Disposition: DC-01 TO HOME OR SELFCARE Is pt being admited?: No Condition: Stable Instructions: Soft Tissue Foreign Body (ED) Additional Instructions: Monitor your finger for worsening pain and swelling. Should you have worsening pain and swelling please return to the emergency department for further evaluation or follow up with your orthopedist. Prescriptions: Ibuprofen [Motrin 600 MG tab] 600 mg PO Q8H PRN #30 tablet PRN Reason: Pain Referrals: PRIMARY CARE,MD [Primary Care Provider] - 3-5 Days
== END 2017-04-22 13:36 | disposition home or self-care (01) ==
LOC: ED 08:05
DX: M79.89 Other specified soft tissue disorders (principal); E11.9 Type 2 diabetes mellitus without complications; F17.210 Nicotine dependence, cigarettes, uncomplicated; Z79.4 Long term (current) use of insulin
CPT/HCPCS: 99282

== ENCOUNTER 2017-05-28 15:49 | Inpatient (IN) | payer SELFPAY ==
[2017-05-28] MEDS ORDERED: NACL 0.9% 1000 ML 1,000 ML IV ONE ×2 (16:20→17:13)
[2017-05-28 17:03] LABS: Basophils % (Auto) 1.4 % (0.0-1.8); Hematocrit 35.3 % (35.5-45.6); Hemoglobin 11.3 gm/dl (11.8-15.2); Mean Corpuscular HGB Conc 32 % (32-34); Mean Corpuscular Hemoglobin 28 pg (28-32); Mean Corpuscular Volume 87 fl (84-94); Red Blood Count 4.07 M/mm3 (3.65-5.03); Red Cell Distribution Width 14.6 % (13.2-15.2); White Blood Count 11.2 K/mm3 (4.5-11.0)
[2017-05-28 17:05] LABS: Platelet Count 226 K/mm3 (140-440)
[2017-05-28] MEDS ORDERED: MORPHINE IV ONE ×2 (17:12→20:53)
[2017-05-28] MEDS ORDERED: ZOFRAN IV ONE (17:13)
[2017-05-28 17:17] LABS: Anion Gap 38 mmol/L; Blood Urea Nitrogen 33 mg/dL (9-20); Calcium 9.6 mg/dL (8.4-10.2); Carbon Dioxide 11 mmol/L (22-30); Chloride 88.7 mmol/L (98-107); Potassium 4.6 mmol/L (3.6-5.0); Sodium 133 mmol/L (137-145)
[2017-05-28 17:21] LABS: Glucose 602 mg/dL (75-100)
[2017-05-28 17:37] LABS: ISTAT Base Excess -16; ISTAT DEVICE 0; ISTAT HCO3 10.5; ISTAT PCO2 20.7 (35-45); ISTAT PH 7.314 (7.35-7.45); ISTAT PO2 112 (80-105); ISTAT SO2 98; ISTAT TCO2 11
[2017-05-28] MEDS ORDERED: BABY ASPIRIN PO ONE (17:38)
--- NOTE | 2017-05-28 17:38 | Emergency Department Report ---
HPI - General Chief Complaint: Hyperglycemia Time Seen by Provider: 05/28/17 16:18 - HPI HPI: The patient is a 42-year-old male with a history of type 1 diabetes who presents for evaluation of abdominal pain and altered mental status. The patient reports one day of abdominal pain, 10/10 in severity, crampy in quality , epigastric in location, and exacerbated with vomiting. He is also has experienced nausea and multiple episodes of nonbilious, nonbloody emesis. He admits to waxing and waning confusion. He was pulled over by police earlier today due to failure to maintain Edwin. ED Past Medical Hx - Past Medical History Hx Hypertension: No Hx Heart Attack/AMI: No Hx Congestive Heart Failure: No Hx Diabetes: Yes Hx Deep Vein Thrombosis: No Hx Pulmonary Embolism: No Hx GERD: No Hx Liver Disease: Yes (hep c) Hx Renal Disease: No Hx Arthritis: No Hx Kidney Stones: No Hx Asthma: No Hx COPD: No Hx Tuberculosis: No Hx HIV: No Additional medical history: Hepatitis C - Surgical History Hx Coronary Stent: No Hx Open Heart Surgery: No Hx Pacemaker: No Hx Internal Defibrillator: No Hx Cholecystectomy: No Hx Appendectomy: No Hx Breast Surgery: No Additional Surgical History: tonsillectomy - Social History Smoking Status: Current Every Day Smoker - Medications Home Medications: Home Medications Medication Instructions Recorded Confirmed Last Taken Type Insulin Lispro [Humalog 100 10 units SQ TIDAC 03/27/17 03/27/17 03/26/17 History UNITS/ML Kwikpen] Insulin Lispro [Humalog 100 1 dose SQ AC #1 pen 03/28/17 Unknown Rx UNITS/ML Kwikpen] Lantus Solostar 15 units SQ HS #1 03/28/17 03/27/17 03/26/17 Rx Xanax TAB 0.5 mg PO BID #30 03/28/17 03/27/17 03/26/17 Rx Ibuprofen [Motrin 600 MG tab] 600 mg PO Q8H PRN #30 tablet 04/22/17 Unknown Rx ED Review of Systems ROS: Stated complaint: HYPERGLYCEMIA Other details as noted in HPI Constitutional: denies: fever ENT: denies: throat or neck pain Respiratory: denies: cough, shortness of breath Cardiovascular: denies: chest pain Endocrine: denies unexplained weight loss or gain Gastrointestinal: reports abdominal pain, nausea Genitourinary: denies: dysuria Musculoskeletal: denies: leg swelling Skin: denies: rash Neurological: reports AMS, weakness denies: headache Hematological/Lymphatic: denies: easy bleeding or easy bruising Psych: denies sadness or hopelessness Physical Exam - Physical Exam Vital Signs: Vital Signs 05/28/17 16:23 Temperature 98.2 F Pulse Rate 109 H Respiratory 16 Rate Blood Pressure 133/89 [Left] O2 Sat by Pulse 100 Oximetry Physical Exam: General: well-nourished, well-developed, no acute distress Head: Normocephalic, atraumatic Eyes: normal sclera ENT: Mucous membranes are pale and dry Neck: No neck stiffness, no cervical adenopathy Respiratory: Breath sounds equal bilaterally, no wheezing, rales, or rhonchi Cardio: S1 and S2 present, no murmurs, rubs, gallops, capillary refill is delayed Abdomen: Normoactive bowel sounds, soft abdomen, generalized tenderness to palpation present, no rigidity, no guarding or rebound tenderness Chest WALL/Back: No tenderness to palpation of the chest wall, no CVA tenderness with percussion Musc: No pitting edema Skin: No rash Neuro: no facial drooping, normal speech Psych: Normal affect ED Course Vital Signs 05/28/17 16:23 Temperature 98.2 F Pulse Rate 109 H Respiratory 16 Rate Blood Pressure 133/89 [Left] O2 Sat by Pulse 100 Oximetry ED Medical Decision Making - Lab Data Result diagrams: 05/28/17 16:47 05/28/17 16:47 - Medical Decision Making The patient was seen and examined by myself. The patient is placed on a telemetry monitor and continuous pulse ox. On initial evaluation, the patient was found to be in no distress. Evaluation orders are placed. IV access is established and the patient is given 1 L normal saline fluid bolus and Zofran for nausea, and IV analgesic for pain. Lab results revealed elevated glucose of 600, elevated anion gap 38, low bicarbonate of 11, consistent with diabetic ketoacidosis. Otherwise lab results Were non-concerning including WBC, hemoglobin, hematocrit, electrolytes, renal function, LFTs, lipase, and urinalysis. the patient is given IV insulin and started on an insulin drip. Multiple bedside reassessments and Accu-Cheks were performed to evaluate patient responsiveness to insulin infusion and pain medicine. The on-call hospitalist service was contacted. They agreed to admit the patient for further treatment and close monitoring. The ED admit order was placed. The patient was admitted in guarded condition. Critical Care Time: Yes Critical care time in (mins) excluding proc time.: 35 Critical care attestation.: Due to the critical nature of this patients presentation, which necessitated multiple bedside assessments, manipulation and supportive measures to prevent further life threatening deterioration, I would like to bill for a total of 35 minutes of critical care time. This was exclusive of any separately billable procedures. Critical Care Time: 35 minutes ED Disposition Clinical Impression: Dehydration, Abdominal pain, acute, epigastric Diabetic ketoacidosis associated with type 1 diabetes mellitus Qualifiers: Diabetes mellitus complication detail: without coma Qualified Code(s): E10.10 - Type 1 diabetes mellitus with ketoacidosis without coma Altered mental status Qualifiers: Altered mental status type: transient alteration of awareness Qualified Code(s) : R40.4 - Transient alteration of awareness Disposition: DC-09 OP ADMIT IP TO THIS HOSP Is pt being admited?: Yes Does the pt Need Aspirin: Yes Condition: Critical Instructions: Diabetes Mellitus Type 2 in Adults (ED) Referrals: PRIMARY CARE, [Primary Care Provider] - 3-5 Days Time of Disposition: 17:34
[2017-05-28 18:54] LABS: Bilirubin,Urine NEG (Negative); Blood,Urine NEG (Negative); Ketones,Urine 80 mg/dL (Negative); Leukocyte Esterase,Urine NEG (Negative); Mucus,Urine FEW /HPF; Nitrite,Urine NEG (Negative); Protein,Urine <15 mg/dL mg/dL (Negative); Urobilinogen,Urine < 2.0 mg/dL (<2.0); WBC,Urine < 1.0 /HPF (0.0-6.0)
[2017-05-28 19:01] LABS: Urine Drugs of Abuse Note Disclamer
[2017-05-28] MEDS ORDERED: D50W (25GM) Syringe IV PRN (20:52)
[2017-05-28] MEDS ORDERED: DULCOLAX PR PRN (20:55)
[2017-05-28] MEDS ORDERED: TYLENOL PO PRN (20:55)
[2017-05-28] MEDS ORDERED: MILK OF MAGNESIA PO PRN (20:55)
--- NOTE | 2017-05-28 20:55 | History and Physical Report ---
History of Present Illness Date of examination: 05/28/17 Date of admission: 05/28/17 Chief complaint: Severe weakness 2 days History of present illness: - HPI HPI: The patient is a 42-year-old male with a history of type 1 diabetes who presents for evaluation of abdominal pain and altered mental status. The patient reports one day of abdominal pain, 10/10 in severity, crampy in quality , epigastric in location, and exacerbated with vomiting. He is also has experienced nausea and multiple episodes of nonbilious, nonbloody emesis. He admits to waxing and waning confusion. He was pulled over by police earlier today due to failure to maintain Edwin. Past Medical History Hx Hypertension: No Hx Heart Attack/AMI: No Hx Congestive Heart Failure: No Hx Diabetes: Yes Hx Deep Vein Thrombosis: No Hx Pulmonary Embolism: No Hx GERD: No Hx Liver Disease: Yes (hep c) Hx Renal Disease: No Hx Arthritis: No Hx Kidney Stones: No Hx Asthma: No Hx COPD: No Hx Tuberculosis: No Hx HIV: No Additional medical history: Hepatitis C - Surgical History Hx Coronary Stent: No Hx Open Heart Surgery: No Hx Pacemaker: No Hx Internal Defibrillator: No Hx Cholecystectomy: No Hx Appendectomy: No Hx Breast Surgery: No Additional Surgical History: tonsillectomy - Social History Smoking Status: Current Every Day Smoker - Medications Home Medications: Home Medications Medication Instructions Recorded Confirmed Last Taken Type Insulin Lispro [Humalog 100 10 units SQ TIDAC 03/27/17 03/27/17 03/26/17 History UNITS/ML Kwikpen] Insulin Lispro [Humalog 100 1 dose SQ AC #1 pen 03/28/17 Unknown Rx UNITS/ML Kwikpen] Lantus Solostar 15 units SQ HS #1 03/28/17 03/27/17 03/26/17 Rx Xanax TAB 0.5 mg PO BID #30 03/28/17 03/27/17 03/26/17 Rx Ibuprofen [Motrin 600 MG tab] 600 mg PO Q8H PRN #30 tablet 04/22/17 Unknown Rx Review of Systems ROS: Stated complaint: HYPERGLYCEMIA Other details as noted in HPI Constitutional: denies: fever ENT: denies: throat or neck pain Respiratory: denies: cough, shortness of breath Cardiovascular: denies: chest pain Endocrine: denies unexplained weight loss or gain Gastrointestinal: reports abdominal pain, nausea Genitourinary: denies: dysuria Musculoskeletal: denies: leg swelling Skin: denies: rash Neurological: reports AMS, weakness denies: headache Hematological/Lymphatic: denies: easy bleeding or easy bruising Psych: denies sadness or hopelessness Medications and Allergies Allergies Allergy/AdvReac Type Severity Reaction Status Date / Time No Known Allergies Allergy Verified 07/26/16 17:02 Home Medications Medication Instructions Recorded Confirmed Last Taken Type Insulin Lispro [Humalog 100 10 units SQ TIDAC 03/27/17 05/29/17 03/26/17 History UNITS/ML Kwikpen] Ibuprofen [Motrin 600 MG tab] 600 mg PO Q8H PRN #30 tablet 04/22/17 05/29/17 Unknown Rx Lantus Solostar 15 units SQ HS 05/29/17 05/29/17 05/27/17 20:00 History 15 units Xanax TAB 0.5 mg PO BID 05/29/17 05/29/17 05/28/17 08:00 History Active Meds: Active Medications Dextrose (D50w (25gm) Syringe) 0 ml IV PRN PRN PRN Reason: Hypoglycemia Insulin Human Regular 100 (units/ Sodium Chloride) 100 mls @ 1 mls/hr IV TITR SHELIA; 1 UNITS/HR PRN Reason: Protocol Exam - Constitutional Vitals: Temp Pulse Resp BP Pulse Ox 98.2 F 109 H 16 133/89 100 05/28/17 16:23 05/28/17 16:23 05/28/17 16:23 05/28/17 16:23 05/28/17 16:23 General appearance: Present: no acute distress, well-nourished - EENT Eyes: Present: PERRL ENT: hearing intact, clear oral mucosa - Neck Neck: Present: supple, normal ROM - Respiratory Respiratory effort: normal Respiratory: bilateral: CTA - Cardiovascular Heart Sounds: Present: S1 & S2. Absent: rub, click - Extremities Extremities: pulses symmetrical, No edema Peripheral Pulses: within normal limits - Abdominal General gastrointestinal: Present: soft, non-tender, non-distended, normal bowel sounds Male genitourinary: Present: normal - Integumentary Integumentary: Present: clear, warm, dry - Musculoskeletal Musculoskeletal: gait normal, strength equal bilaterally - Psychiatric Psychiatric: appropriate mood/affect, intact judgment & insight - Neurologic Neurologic: CNII-XII intact, moves all extremities Results - Labs CBC & Chem 7: 05/29/17 03:34 05/29/17 11:11 Labs: Laboratory Last Values WBC 11.2 K/mm3 (4.5-11.0) H 05/28/17 16:47 RBC 4.07 M/mm3 (3.65-5.03) 05/28/17 16:47 Hgb 11.3 gm/dl (11.8-15.2) L 05/28/17 16:47 Hct 35.3 % (35.5-45.6) L 05/28/17 16:47 MCV 87 fl (84-94) 05/28/17 16:47 MCH 28 pg (28-32) 05/28/17 16:47 MCHC 32 % (32-34) 05/28/17 16:47 RDW 14.6 % (13.2-15.2) 05/28/17 16:47 Plt Count 226 K/mm3 (140-440) 05/28/17 16:47 Lymph % (Auto) 11.3 % (13.4-35.0) L 05/28/17 16:47 [place] % (Auto) 3.3 % (0.0-7.3) 05/28/17 16:47 Eos % (Auto) 0.0 % (0.0-4.3) 05/28/17 16:47 Baso % (Auto) 1.4 % (0.0-1.8) 05/28/17 16:47 Lymph # 1.3 K/mm3 (1.2-5.4) 05/28/17 16:47 [place] # 0.4 K/mm3 (0.0-0.8) 05/28/17 16:47 Eos # 0.0 K/mm3 (0.0-0.4) 05/28/17 16:47 Baso # 0.2 K/mm3 (0.0-0.1) H 05/28/17 16:47 Seg Neutrophils % 84.0 % (40.0-70.0) H 05/28/17 16:47 Seg Neutrophils # 9.4 K/mm3 (1.8-7.7) H 05/28/17 16:47 POC ABG pH 7.314 (7.35-7.45) L 05/28/17 17:35 POC ABG pCO2 20.7 (35-45) L 05/28/17 17:35 POC ABG pO2 112 (80-105) H 05/28/17 17:35 POC ABG HCO3 10.5 05/28/17 17:35 POC ABG Total CO2 11 05/28/17 17:35 POC ABG O2 Sat 98 05/28/17 17:35 POC ABG Base Excess -16 05/28/17 17:35 VBG pH 7.323 (7.320-7.420) 05/28/17 16:47 FiO2 21 % 05/28/17 17:35 Sodium 133 mmol/L (137-145) L 05/28/17 16:47 Potassium 4.6 mmol/L (3.6-5.0) 05/28/17 16:47 Chloride 88.7 mmol/L (98-107) L 05/28/17 16:47 Carbon Dioxide 11 mmol/L (22-30) L 05/28/17 16:47 Anion Gap 38 mmol/L 05/28/17 16:47 BUN 33 mg/dL (9-20) H 05/28/17 16:47 Creatinine 1.1 mg/dL (0.8-1.5) 05/28/17 16:47 Estimated GFR > 60 ml/min 05/28/17 16:47 BUN/Creatinine Ratio 30.00 % 05/28/17 16:47 Glucose 602 mg/dL (75-100) H* 05/28/17 16:47 Calcium 9.6 mg/dL (8.4-10.2) 05/28/17 16:47 NT-Pro-B Natriuret Pep 477.3 pg/mL (0-450) H 05/28/17 17:41 Urine Color Straw (Yellow) 05/28/17 18:37 Urine Turbidity Clear (Clear) 05/28/17 18:37 Urine pH 5.0 (5.0-7.0) 05/28/17 18:37 Ur Specific [place] 1.024 (1.003-1.030) 05/28/17 18:37 Urine Protein <15 mg/dl mg/dL (Negative) 05/28/17 18:37 Urine Glucose (UA) >=500 mg/dL (Negative) 05/28/17 18:37 Urine Ketones 80 mg/dL (Negative) 05/28/17 18:37 Urine Blood Neg (Negative) 05/28/17 18:37 Urine Nitrite Neg (Negative) 05/28/17 18:37 Urine Bilirubin Neg (Negative) 05/28/17 18:37 Urine Urobilinogen < 2.0 mg/dL (<2.0) 05/28/17 18:37 Ur Leukocyte Esterase Neg (Negative) 05/28/17 18:37 Urine WBC (Auto) < 1.0 /HPF (0.0-6.0) 05/28/17 18:37 Urine RBC (Auto) 2.0 /HPF (0.0-6.0) 05/28/17 18:37 Urine Mucus Few /HPF 05/28/17 18:37 Urine Opiates Screen Presumptive negative 05/28/17 16:20 Urine Methadone Screen Presumptive positive 05/28/17 16:20 Ur Barbiturates Screen Presumptive negative 05/28/17 16:20 Ur Phencyclidine Scrn Presumptive negative 05/28/17 16:20 Ur Amphetamines Screen Presumptive negative 05/28/17 16:20 U Benzodiazepines Scrn Presumptive negative 05/28/17 16:20 Urine Cocaine Screen Presumptive negative 05/28/17 16:20 U Marijuana (THC) Screen Presumptive negative 05/28/17 16:20 Drugs of Abuse Note Disclamer 05/28/17 16:20 Short CBC 05/28/17 05/29/17 Range/Units 16:47 03:34 WBC 11.2 H 10.1 (4.5-11.0) K/mm3 Hgb 11.3 L 11.0 L (11.8-15.2) gm/dl Hct 35.3 L 33.0 L (35.5-45.6) % Plt Count 226 242 (140-440) K/mm3 BMP 05/28/17 05/29/17 05/29/17 16:47 01:52 03:34 Sodium 133 L 142 D 140 Potassium 4.6 3.5 L D 3.8 Chloride 88.7 L 102.7 100.3 Carbon Dioxide 11 L 21 L D 15 L BUN 33 H 27 H 26 H Creatinine 1.1 1.0 0.9 Glucose 602 H* 127 H 307 H Calcium 9.6 9.2 8.6 Liver Function 05/29/17 Range/Units 03:34 Total Bilirubin 0.30 (0.1-1.2) mg/dL AST 28 (5-40) units/L ALT 43 (7-56) units/L Alkaline Phosphatase 178 H (35-129) units/L Albumin 3.3 L (3.9-5) g/dL Urine 05/28/17 Range/Units 18:37 Urine Color Straw (Yellow) Urine pH 5.0 (5.0-7.0) Ur Specific [place] 1.024 (1.003-1.030) Urine Protein <15 mg/dl (Negative) mg/dL Urine Glucose (UA) >=500 (Negative) mg/dL Assessment and Plan Advance Directives: Yes (Full code) VTE prophylaxis?: Chemical Plan of care discussed with patient/family: Yes - Patient Problems (1) Diabetic ketoacidosis associated with type 1 diabetes mellitus Current Visit: Yes Status: Acute Qualifiers: Diabetes mellitus complication detail: without coma Qualified Code(s): E10.10 - Type 1 diabetes mellitus with ketoacidosis without coma Plan to address problem: DKA protocol with IV insulin and IV fluids initiated (2) IDDM (insulin dependent diabetes mellitus) Current Visit: Yes Status: Chronic Plan to address problem: Insulin dosage to be adjusted.Hba1c very high.Increase Lantus dosage.and Humalog /Novalog dosage. (3) Metabolic encephalopathy Current Visit: Yes Status: Acute Plan to address problem: Sec to DKA Should resolve with improved Glucose levels (4) DVT prophylaxis Current Visit: Yes Status: Acute Plan to address problem: On Lovenox 40 mg sq qd
[2017-05-28] MEDS ORDERED: MORPHINE ONE (21:47)
[2017-05-28] MEDS ORDERED: LOVENOX SUB-Q ONE (21:48)
[2017-05-28] MEDS: NovoLIN R 100 UNITS in NACL 0.9% 99 ML IV SCH (21:50)
[2017-05-28] MEDS: LOVENOX SUB-Q SCH (21:50)
[2017-05-28] MEDS ORDERED: NACL 0.9% 1000 ML 1,000 ML ONE (22:33)
[2017-05-28] MEDS ORDERED: NACL 0.9% 1000 ML 1,000 ML IV SCH (23:45)
[2017-05-29] MEDS ORDERED: D5/0.45NS 1,000 ML IV ONE (01:03)
[2017-05-29] MEDS: DILAUDID IV PRN ×5 (01:37→20:14)
[2017-05-29] MEDS: ZOFRAN IV PRN ×2 (01:37→10:38)
[2017-05-29 02:27] LABS: Blood Urea Nitrogen 27 mg/dL (9-20); Calcium 9.2 mg/dL (8.4-10.2); Carbon Dioxide 21 mmol/L (22-30); Chloride 102.7 mmol/L (98-107); Glucose 127 mg/dL (75-100); Potassium 3.5 mmol/L (3.6-5.0); Sodium 142 mmol/L (137-145)
[2017-05-29 02:35] LABS: Anion Gap 22 mmol/L
[2017-05-29] MEDS ORDERED: D5/0.45NS 1,000 ML IV SCH ×2 (03:00→08:00)
[2017-05-29 04:45] LABS: Basophils % (Auto) 0.8 % (0.0-1.8); Eosinophils % (Auto) 0.1 % (0.0-4.3); Mean Corpuscular HGB Conc 33 % (32-34); Mean Corpuscular Hemoglobin 29 pg (28-32); Mean Corpuscular Volume 86 fl (84-94); Platelet Count 242 K/mm3 (140-440); Red Blood Count 3.84 M/mm3 (3.65-5.03); Red Cell Distribution Width 14.8 % (13.2-15.2); White Blood Count 10.1 K/mm3 (4.5-11.0)
[2017-05-29] MEDS ORDERED: KCL 20 MEQ in D5NS 0.2% 1,000 ML IV SCH (05:00)
[2017-05-29 05:01] LABS: Alanine Aminotransferase 43 units/L (7-56); Albumin 3.3 g/dL (3.9-5); Albumin/Globulin Ratio 0.9 %; Alkaline Phosphatase 178 units/L (35-129); Anion Gap 29 mmol/L; BUN/Creatinine Ratio 28.88; Blood Urea Nitrogen 26 mg/dL (9-20); Calcium 8.6 mg/dL (8.4-10.2); Carbon Dioxide 15 mmol/L (22-30); Chloride 100.3 mmol/L (98-107); Glucose 307 mg/dL (75-100); Potassium 3.8 mmol/L (3.6-5.0); Sodium 140 mmol/L (137-145)
[2017-05-29] MEDS ORDERED: NovoLIN R 100 UNITS in NACL 0.9% 99 ML IV SCH (08:00)
[2017-05-29] MEDS ORDERED: D50W (25GM) Syringe IV PRN ×2 (08:00→13:53)
[2017-05-29] MEDS: NovoLIN R 100 UNITS in NACL 0.9% 99 ML IV SCH (08:09)
[2017-05-29] MEDS: LOVENOX SUB-Q SCH (10:25)
--- NOTE | 2017-05-29 11:02 | Progress Note ---
Assessment and Plan Assessment and plan: DKA. Continue IV insulin and IV fluid hydration. Patient will be transitioned to his home dose of long-acting insulin (lantus) at bedtime when the anion gap has closed. BMP pending. Metabolic encephalopathy. Resolved. Type 1 diabetes mellitus, uncontrolled. Increase Lantus dose given the elevated hemoglobin A1c. Nausea and vomiting. Check KUB. Etiology likely secondary to gastroparesis. Start Reglan IV every 6 hours. DVT prophylaxis. Continue Lovenox. History Interval history: Patient complains of general malaise. No chest pain or shortness of breath. Hospitalist Physical - Constitutional Vitals: Temp Pulse Resp BP Pulse Ox 98.2 F 87 13 133/91 100 05/29/17 08:00 05/29/17 10:00 05/29/17 10:00 05/29/17 10:00 05/29/17 10:00 General appearance: Present: no acute distress, well-nourished - EENT Eyes: Present: PERRL, EOM intact ENT: hearing intact, clear oral mucosa, dentition normal - Neck Neck: Present: supple, normal ROM - Respiratory Respiratory effort: normal Respiratory: bilateral: CTA - Cardiovascular Rhythm: regular Heart Sounds: Present: S1 & S2. Absent: gallop, rub - Extremities Extremities: no ischemia, No edema, Full ROM - Abdominal General gastrointestinal: soft, non-tender, non-distended, normal bowel sounds - Integumentary Integumentary: Present: clear, warm, dry - Neurologic Neurologic: CNII-XII intact, moves all extremities Results - Labs CBC & Chem 7: 05/29/17 03:34 05/29/17 03:34 Labs: Laboratory Last Values WBC 10.1 K/mm3 (4.5-11.0) 05/29/17 03:34 RBC 3.84 M/mm3 (3.65-5.03) 05/29/17 03:34 Hgb 11.0 gm/dl (11.8-15.2) L 05/29/17 03:34 Hct 33.0 % (35.5-45.6) L 05/29/17 03:34 MCV 86 fl (84-94) 05/29/17 03:34 MCH 29 pg (28-32) 05/29/17 03:34 MCHC 33 % (32-34) 05/29/17 03:34 RDW 14.8 % (13.2-15.2) 05/29/17 03:34 Plt Count 242 K/mm3 (140-440) 05/29/17 03:34 Lymph % (Auto) 16.6 % (13.4-35.0) 05/29/17 03:34 [place] % (Auto) 4.7 % (0.0-7.3) 05/29/17 03:34 Eos % (Auto) 0.1 % (0.0-4.3) 05/29/17 03:34 Baso % (Auto) 0.8 % (0.0-1.8) 05/29/17 03:34 Lymph # 1.7 K/mm3 (1.2-5.4) 05/29/17 03:34 [place] # 0.5 K/mm3 (0.0-0.8) 05/29/17 03:34 Eos # 0.0 K/mm3 (0.0-0.4) 05/29/17 03:34 Baso # 0.1 K/mm3 (0.0-0.1) 05/29/17 03:34 Seg Neutrophils % 77.8 % (40.0-70.0) H 05/29/17 03:34 Seg Neutrophils # 7.9 K/mm3 (1.8-7.7) H 05/29/17 03:34 POC ABG pH 7.314 (7.35-7.45) L 05/28/17 17:35 POC ABG pCO2 20.7 (35-45) L 05/28/17 17:35 POC ABG pO2 112 (80-105) H 05/28/17 17:35 POC ABG HCO3 10.5 05/28/17 17:35 POC ABG Total CO2 11 05/28/17 17:35 POC ABG O2 Sat 98 05/28/17 17:35 POC ABG Base Excess -16 05/28/17 17:35 VBG pH 7.323 (7.320-7.420) 05/28/17 16:47 FiO2 21 % 05/28/17 17:35 Sodium 140 mmol/L (137-145) 05/29/17 03:34 Potassium 3.8 mmol/L (3.6-5.0) 05/29/17 03:34 Chloride 100.3 mmol/L (98-107) 05/29/17 03:34 Carbon Dioxide 15 mmol/L (22-30) L 05/29/17 03:34 Anion Gap 29 mmol/L 05/29/17 03:34 BUN 26 mg/dL (9-20) H 05/29/17 03:34 Creatinine 0.9 mg/dL (0.8-1.5) 05/29/17 03:34 Estimated GFR > 60 ml/min 05/29/17 03:34 BUN/Creatinine Ratio 28.88 % 05/29/17 03:34 Glucose 307 mg/dL (75-100) H 05/29/17 03:34 POC Glucose 159 (70-105) H 05/29/17 09:08 Hemoglobin A1c 10.4 % (4-6) H 05/28/17 16:47 Calcium 8.6 mg/dL (8.4-10.2) 05/29/17 03:34 Total Bilirubin 0.30 mg/dL (0.1-1.2) 05/29/17 03:34 AST 28 units/L (5-40) 05/29/17 03:34 ALT 43 units/L (7-56) 05/29/17 03:34 Alkaline Phosphatase 178 units/L (35-129) H 05/29/17 03:34 NT-Pro-B Natriuret Pep 477.3 pg/mL (0-450) H 05/28/17 17:41 Total Protein 7.0 g/dL (6.3-8.2) 05/29/17 03:34 Albumin 3.3 g/dL (3.9-5) L 05/29/17 03:34 Albumin/Globulin Ratio 0.9 % 05/29/17 03:34 Urine Color Straw (Yellow) 05/28/17 18:37 Urine Turbidity Clear (Clear) 05/28/17 18:37 Urine pH 5.0 (5.0-7.0) 05/28/17 18:37 Ur Specific [place] 1.024 (1.003-1.030) 05/28/17 18:37 Urine Protein <15 mg/dl mg/dL (Negative) 05/28/17 18:37 Urine Glucose (UA) >=500 mg/dL (Negative) 05/28/17 18:37 Urine Ketones 80 mg/dL (Negative) 05/28/17 18:37 Urine Blood Neg (Negative) 05/28/17 18:37 Urine Nitrite Neg (Negative) 05/28/17 18:37 Urine Bilirubin Neg (Negative) 05/28/17 18:37 Urine Urobilinogen < 2.0 mg/dL (<2.0) 05/28/17 18:37 Ur Leukocyte Esterase Neg (Negative) 05/28/17 18:37 Urine WBC (Auto) < 1.0 /HPF (0.0-6.0) 05/28/17 18:37 Urine RBC (Auto) 2.0 /HPF (0.0-6.0) 05/28/17 18:37 Urine Mucus Few /HPF 05/28/17 18:37 Urine Opiates Screen Presumptive negative 05/28/17 16:20 Urine Methadone Screen Presumptive positive 05/28/17 16:20 Ur Barbiturates Screen Presumptive negative 05/28/17 16:20 Ur Phencyclidine Scrn Presumptive negative 05/28/17 16:20 Ur Amphetamines Screen Presumptive negative 05/28/17 16:20 U Benzodiazepines Scrn Presumptive negative 05/28/17 16:20 Urine Cocaine Screen Presumptive negative 05/28/17 16:20 U Marijuana (THC) Screen Presumptive negative 05/28/17 16:20 Drugs of Abuse Note Disclamer 05/28/17 16:20
--- NOTE | 2017-05-29 11:30 | Consultation ---
History of Present Illness Consult date: 05/29/17 Requesting physician: KIRBY WHYTE Reason for consult: other (DKA) History of present illness: PULMONARY/CCM CONSULT NOTE (Full dictation # [id number]) Please see dictated notes for full details Medications and Allergies Allergies Allergy/AdvReac Type Severity Reaction Status Date / Time No Known Allergies Allergy Verified 07/26/16 17:02 Home Medications Medication Instructions Recorded Confirmed Last Taken Type Insulin Lispro [Humalog 100 10 units SQ TIDAC 03/27/17 05/29/17 03/26/17 History UNITS/ML Kwikpen] Ibuprofen [Motrin 600 MG tab] 600 mg PO Q8H PRN #30 tablet 04/22/17 05/29/17 Unknown Rx Lantus Solostar 15 units SQ HS 05/29/17 05/29/17 05/27/17 20:00 History 15 units Xanax TAB 0.5 mg PO BID 05/29/17 05/29/17 05/28/17 08:00 History Active Meds: Active Medications Acetaminophen (Tylenol) 650 mg PO Q4H PRN PRN Reason: Pain MILD(1-3)/Fever >100.5/LEE Bisacodyl (Dulcolax) 10 mg ME QDAY PRN PRN Reason: Constipation unrelieved by MOM Dextrose (D50w (25gm) Syringe) 0 ml IV PRN PRN PRN Reason: Hypoglycemia Enoxaparin Sodium (Lovenox) 40 mg SUB-Q QDAY SHELIA Last Admin: 05/29/17 10:25 Dose: 40 mg Hydromorphone HCl (Dilaudid) 1 mg IV Q3H PRN PRN Reason: Pain , Severe (7-10) Last Admin: 05/29/17 10:38 Dose: 1 mg Potassium Chloride 20 meq/ (Dextrose/Sodium Chloride) 1,010 mls @ 125 mls/hr IV DIRECT SHELIA Dextrose/Sodium Chloride (D5/0.45ns) 1,000 mls @ 150 mls/hr IV DIRECT SHELIA Last Admin: 05/29/17 08:01 Dose: 150 mls/hr Insulin Human Regular 100 (units/ Sodium Chloride) 100 mls @ 1 mls/hr IV TITR SHELIA; 1 UNITS/HR PRN Reason: Protocol Magnesium Hydroxide (Milk Of Magnesia) 30 ml PO Q4H PRN PRN Reason: Constipation Ondansetron HCl (Zofran) 4 mg IV Q8H PRN PRN Reason: N/V unrelieved by Octaviano Last Admin: 05/29/17 10:38 Dose: 4 mg Physical Examination Vital signs: Vital Signs BP 133/89 05/28/17 16:19 Results - Laboratory Findings CBC and BMP: 05/29/17 03:34 05/29/17 11:11 ABG POC ABG pH 7.314 (7.35-7.45) L 05/28/17 17:35 POC ABG pCO2 20.7 (35-45) L 05/28/17 17:35 POC ABG pO2 112 (80-105) H 05/28/17 17:35 POC ABG HCO3 10.5 05/28/17 17:35 POC ABG Total CO2 11 05/28/17 17:35 POC ABG O2 Sat 98 05/28/17 17:35 Abnormal lab findings: Abnormal Labs 05/28/17 05/28/17 05/29/17 21:02 23:58 01:01 Hgb Hct Seg Neutrophils % Seg Neutrophils # Potassium Carbon Dioxide BUN Glucose POC Glucose 376 H 239 H 131 H Alkaline Phosphatase Albumin 05/29/17 05/29/17 05/29/17 01:52 02:03 03:25 Hgb Hct Seg Neutrophils % Seg Neutrophils # Potassium 3.5 L D Carbon Dioxide 21 L D BUN 27 H Glucose 127 H POC Glucose 125 H 312 H Alkaline Phosphatase Albumin 05/29/17 05/29/17 05/29/17 03:34 03:34 04:09 Hgb 11.0 L Hct 33.0 L Seg Neutrophils % 77.8 H Seg Neutrophils # 7.9 H Potassium Carbon Dioxide 15 L BUN 26 H Glucose 307 H POC Glucose 317 H Alkaline Phosphatase 178 H Albumin 3.3 L 05/29/17 05/29/17 05/29/17 05:59 07:20 08:00 Hgb Hct Seg Neutrophils % Seg Neutrophils # Potassium Carbon Dioxide BUN Glucose POC Glucose 176 H 133 H 141 H Alkaline Phosphatase Albumin 05/29/17 09:08 Hgb Hct Seg Neutrophils % Seg Neutrophils # Potassium Carbon Dioxide BUN Glucose POC Glucose 159 H Alkaline Phosphatase Albumin
[2017-05-29 12:28] LABS: BUN/Creatinine Ratio 25.55; Blood Urea Nitrogen 23 mg/dL (9-20); Calcium 8.5 mg/dL (8.4-10.2); Carbon Dioxide 22 mmol/L (22-30); Chloride 106.4 mmol/L (98-107); Glucose 111 mg/dL (75-100); Potassium 3.2 mmol/L (3.6-5.0); Sodium 141 mmol/L (137-145)
[2017-05-29 12:32] LABS: Anion Gap 16 mmol/L
[2017-05-29] MEDS: LEVEMIR SUB-Q SCH (14:24)
[2017-05-30] MEDS: DILAUDID IV PRN ×6 (00:07→19:56)
[2017-05-30] MEDS: ZOFRAN IV PRN ×2 (08:00→22:49)
[2017-05-30] MEDS: PEPCID PO SCH (09:51)
[2017-05-30] MEDS: LOVENOX SUB-Q SCH (09:51)
--- NOTE | 2017-05-30 10:14 | Progress Note ---
Assessment and Plan Assessment and plan: DKA. Resolved. Metabolic encephalopathy. Resolved. Type 1 diabetes mellitus, uncontrolled. Much better control. Continue Lantus and sliding scale insulin. Nausea and vomiting. Check KUB. Etiology likely secondary to gastroparesis. Reglan IV every 6 hours. DVT prophylaxis. Continue Lovenox. History Interval history: Patient complains of general malaise. No chest pain or shortness of breath. However, patient complains of extreme nausea Hospitalist Physical - Constitutional Vitals: Temp Pulse Resp BP Pulse Ox 98.8 F 101 H 22 122/97 98 05/29/17 23:36 05/29/17 23:36 05/30/17 04:31 05/29/17 23:36 05/29/17 23:36 General appearance: Present: no acute distress, well-nourished - EENT Eyes: Present: PERRL, EOM intact ENT: hearing intact, clear oral mucosa, dentition normal - Neck Neck: Present: supple, normal ROM - Respiratory Respiratory effort: normal Respiratory: bilateral: CTA - Cardiovascular Rhythm: regular Heart Sounds: Present: S1 & S2. Absent: gallop, rub - Extremities Extremities: no ischemia, No edema, Full ROM - Abdominal General gastrointestinal: soft, non-tender, non-distended, normal bowel sounds - Integumentary Integumentary: Present: clear, warm, dry - Neurologic Neurologic: CNII-XII intact, moves all extremities Results - Labs CBC & Chem 7: 05/29/17 03:34 05/29/17 11:11 Labs: Laboratory Last Values WBC 10.1 K/mm3 (4.5-11.0) 05/29/17 03:34 RBC 3.84 M/mm3 (3.65-5.03) 05/29/17 03:34 Hgb 11.0 gm/dl (11.8-15.2) L 05/29/17 03:34 Hct 33.0 % (35.5-45.6) L 05/29/17 03:34 MCV 86 fl (84-94) 05/29/17 03:34 MCH 29 pg (28-32) 05/29/17 03:34 MCHC 33 % (32-34) 05/29/17 03:34 RDW 14.8 % (13.2-15.2) 05/29/17 03:34 Plt Count 242 K/mm3 (140-440) 05/29/17 03:34 Lymph % (Auto) 16.6 % (13.4-35.0) 05/29/17 03:34 [place] % (Auto) 4.7 % (0.0-7.3) 05/29/17 03:34 Eos % (Auto) 0.1 % (0.0-4.3) 05/29/17 03:34 Baso % (Auto) 0.8 % (0.0-1.8) 05/29/17 03:34 Lymph # 1.7 K/mm3 (1.2-5.4) 05/29/17 03:34 [place] # 0.5 K/mm3 (0.0-0.8) 05/29/17 03:34 Eos # 0.0 K/mm3 (0.0-0.4) 05/29/17 03:34 Baso # 0.1 K/mm3 (0.0-0.1) 05/29/17 03:34 Seg Neutrophils % 77.8 % (40.0-70.0) H 05/29/17 03:34 Seg Neutrophils # 7.9 K/mm3 (1.8-7.7) H 05/29/17 03:34 POC ABG pH 7.314 (7.35-7.45) L 05/28/17 17:35 POC ABG pCO2 20.7 (35-45) L 05/28/17 17:35 POC ABG pO2 112 (80-105) H 05/28/17 17:35 POC ABG HCO3 10.5 05/28/17 17:35 POC ABG Total CO2 11 05/28/17 17:35 POC ABG O2 Sat 98 05/28/17 17:35 POC ABG Base Excess -16 05/28/17 17:35 VBG pH 7.323 (7.320-7.420) 05/28/17 16:47 FiO2 21 % 05/28/17 17:35 Sodium 141 mmol/L (137-145) 05/29/17 11:11 Potassium 3.2 mmol/L (3.6-5.0) L 05/29/17 11:11 Chloride 106.4 mmol/L (98-107) 05/29/17 11:11 Carbon Dioxide 22 mmol/L (22-30) D 05/29/17 11:11 Anion Gap 16 mmol/L 05/29/17 11:11 BUN 23 mg/dL (9-20) H 05/29/17 11:11 Creatinine 0.9 mg/dL (0.8-1.5) 05/29/17 11:11 Estimated GFR > 60 ml/min 05/29/17 11:11 BUN/Creatinine Ratio 25.55 % 05/29/17 11:11 Glucose 111 mg/dL (75-100) H 05/29/17 11:11 POC Glucose 53 (70-105) L 05/30/17 05:44 Hemoglobin A1c 10.4 % (4-6) H 05/28/17 16:47 Calcium 8.5 mg/dL (8.4-10.2) 05/29/17 11:11 Phosphorus 2.00 mg/dL (2.5-4.5) L 05/29/17 01:52 Magnesium 2.00 mg/dL (1.7-2.3) 05/29/17 01:52 Total Bilirubin 0.30 mg/dL (0.1-1.2) 05/29/17 03:34 AST 28 units/L (5-40) 05/29/17 03:34 ALT 43 units/L (7-56) 05/29/17 03:34 Alkaline Phosphatase 178 units/L (35-129) H 05/29/17 03:34 NT-Pro-B Natriuret Pep 477.3 pg/mL (0-450) H 05/28/17 17:41 Total Protein 7.0 g/dL (6.3-8.2) 05/29/17 03:34 Albumin 3.3 g/dL (3.9-5) L 05/29/17 03:34 Albumin/Globulin Ratio 0.9 % 05/29/17 03:34 Urine Color Straw (Yellow) 05/28/17 18:37 Urine Turbidity Clear (Clear) 05/28/17 18:37 Urine pH 5.0 (5.0-7.0) 05/28/17 18:37 Ur Specific [place] 1.024 (1.003-1.030) 05/28/17 18:37 Urine Protein <15 mg/dl mg/dL (Negative) 05/28/17 18:37 Urine Glucose (UA) >=500 mg/dL (Negative) 05/28/17 18:37 Urine Ketones 80 mg/dL (Negative) 05/28/17 18:37 Urine Blood Neg (Negative) 05/28/17 18:37 Urine Nitrite Neg (Negative) 05/28/17 18:37 Urine Bilirubin Neg (Negative) 05/28/17 18:37 Urine Urobilinogen < 2.0 mg/dL (<2.0) 05/28/17 18:37 Ur Leukocyte Esterase Neg (Negative) 05/28/17 18:37 Urine WBC (Auto) < 1.0 /HPF (0.0-6.0) 05/28/17 18:37 Urine RBC (Auto) 2.0 /HPF (0.0-6.0) 05/28/17 18:37 Urine Mucus Few /HPF 05/28/17 18:37 Urine Opiates Screen Presumptive negative 05/28/17 16:20 Urine Methadone Screen Presumptive positive 05/28/17 16:20 Ur Barbiturates Screen Presumptive negative 05/28/17 16:20 Ur Phencyclidine Scrn Presumptive negative 05/28/17 16:20 Ur Amphetamines Screen Presumptive negative 05/28/17 16:20 U Benzodiazepines Scrn Presumptive negative 05/28/17 16:20 Urine Cocaine Screen Presumptive negative 05/28/17 16:20 U Marijuana (THC) Screen Presumptive negative 05/28/17 16:20 Drugs of Abuse Note Disclamer 05/28/17 16:20
--- NOTE | 2017-05-30 10:45 | XRay Report ---
ABDOMEN RADIOGRAPHS INDICATION: Nausea, vomiting. COMPARISON: 05/07/2011 FINDINGS: Frontal abdominal supine radiographs demonstrate few prominent air containing left upper quadrant small bowel loops measuring up to 2.8 cm caliber. Normal remainder bowel gas pattern without focal suspicious calcifications or pneumatosis. Lung bases incompletely imaged. Intact bones. Approximately 5.5 cm linear radiodensity projecting to the right of L4 and a smaller 1 cm density over the left hemipelvis presumed extrinsic artifacts. CONCLUSION: 1. Slightly prominent left upper quadrant small bowel loops, nonspecific, though slight ileus developing not excluded. Please also correlate clinically and further with CT, if warranted. 2. Few other findings, as above. Thank you for the opportunity to participate in this patient's care.
--- NOTE | 2017-05-30 12:28 | Progress Note ---
Assessment and Plan - Patient Problems (1) DKA, type 1 Current Visit: No Status: Acute Qualifiers: Diabetes mellitus complication detail: with coma Qualified Code(s): E10.11 - Type 1 diabetes mellitus with ketoacidosis with coma Plan to address problem: - Doing better ...OK to d/c home from a critical care standpoint Subjective Date of service: 05/30/17 Principal diagnosis: DKA Interval history: Seen and examined at bedside; 24 hour events reviewed; nursing and respiratory care staff consulted; no adverse overnight events reported to me; doing better; No N/V/F/C Objective Vital Signs - 12hr 05/30/17 04:31 Respiratory 22 Rate Constitutional: no acute distress, alert Eyes: non-icteric ENT: oropharynx moist Neck: supple Effort: normal Ascultation: Bilateral: clear Cardiovascular: regular rate and rhythm Gastrointestinal: normoactive bowel sounds, soft, non-tender, non-distended Integumentary: normal Extremities: no cyanosis, no edema, pulses normal, no ischemia or petechiae Neurologic: normal mental status, non-focal exam, pupils equal and round, motor strength normal and Psychiatric: mood appropriate, affect normal CBC and BMP: 05/29/17 03:34 05/29/17 11:11 ABG, PT/INR, D-dimer: ABG POC ABG pH 7.314 (7.35-7.45) L 05/28/17 17:35 POC ABG pCO2 20.7 (35-45) L 05/28/17 17:35 POC ABG pO2 112 (80-105) H 05/28/17 17:35 POC ABG HCO3 10.5 05/28/17 17:35 POC ABG Total CO2 11 05/28/17 17:35 POC ABG O2 Sat 98 05/28/17 17:35 Abnormal lab findings: Abnormal Labs 05/28/17 05/28/17 05/29/17 21:02 23:58 01:01 Hgb Hct Seg Neutrophils % Seg Neutrophils # Potassium Carbon Dioxide BUN Glucose POC Glucose 376 H 239 H 131 H Phosphorus Alkaline Phosphatase Albumin 05/29/17 05/29/17 05/29/17 01:52 01:52 02:03 Hgb Hct Seg Neutrophils % Seg Neutrophils # Potassium 3.5 L D Carbon Dioxide 21 L D BUN 27 H Glucose 127 H POC Glucose 125 H Phosphorus 2.00 L Alkaline Phosphatase Albumin 05/29/17 05/29/17 05/29/17 03:25 03:34 03:34 Hgb 11.0 L Hct 33.0 L Seg Neutrophils % 77.8 H Seg Neutrophils # 7.9 H Potassium Carbon Dioxide 15 L BUN 26 H Glucose 307 H POC Glucose 312 H Phosphorus Alkaline Phosphatase 178 H Albumin 3.3 L 05/29/17 05/29/17 05/29/17 04:09 05:16 05:59 Hgb Hct Seg Neutrophils % Seg Neutrophils # Potassium Carbon Dioxide BUN Glucose POC Glucose 317 H 220 H 176 H Phosphorus Alkaline Phosphatase Albumin 05/29/17 05/29/17 05/29/17 07:20 08:00 09:08 Hgb Hct Seg Neutrophils % Seg Neutrophils # Potassium Carbon Dioxide BUN Glucose POC Glucose 133 H 141 H 159 H Phosphorus Alkaline Phosphatase Albumin 05/29/17 05/29/17 05/29/17 09:57 10:54 11:11 Hgb Hct Seg Neutrophils % Seg Neutrophils # Potassium 3.2 L Carbon Dioxide BUN 23 H Glucose 111 H POC Glucose 135 H 123 H Phosphorus Alkaline Phosphatase Albumin 05/29/17 05/29/17 05/30/17 12:09 18:01 05:44 Hgb Hct Seg Neutrophils % Seg Neutrophils # Potassium Carbon Dioxide BUN Glucose POC Glucose 124 H 139 H 53 L Phosphorus Alkaline Phosphatase Albumin 05/30/17 11:14 Hgb Hct Seg Neutrophils % Seg Neutrophils # Potassium Carbon Dioxide BUN Glucose POC Glucose 269 H Phosphorus Alkaline Phosphatase Albumin
--- NOTE | 2017-05-30 15:50 | Consultation ---
PULMONARY CRITICAL CARE EVALUATION CONSULTING PHYSICIAN: Dr. Kwan. REASON FOR CONSULTATION: Diabetic ketoacidosis, need for Intensive Care Unit admission. CHIEF COMPLAINT AND HISTORY OF PRESENT ILLNESS: The patient is a 42-year-old male with past medical history significant for type 1 diabetes and who came into the Emergency Room complaining of couple of days of abdominal pain and altered mental status, described it as 10/10. He stated that it was epigastric, mainly in location. He had also had multiple episodes of nonbilious, nonbloody emesis. He was waxing and waning in mental status. Evaluation in the Emergency Room was consistent with diabetic ketoacidosis. He actually denied not using his home medications. He denied any sick contacts. He denied any open wounds or sores on his body. He denied any chest pains, cough or expectoration of any suggestion of pneumonia. He was started on IV insulin therapy, admitted to the Intensive Care Unit. When I stopped by to see him, he was feeling a little bit better, no more vomiting, but still feeling weak. He was still on IV insulin drip at about 1.5 units per hour. That really is as much of the history of presentation as I have. With regard to tobacco use/abuse and smoking. He apparently smokes everyday, but denies anything more than a 5+ pack-year tobacco smoking history. PAST MEDICAL HISTORY: Diabetes, hepatitis C. PAST SURGICAL HISTORY: He has had tonsillectomy. MEDICATIONS: He was on at the time I stopped by to see him, according to the medication administration record included the following: Tylenol 650 mg p.o. q. 4 hours p.r.n. mild pain, he was on Dulcolax 10 mg per rectum p.r.n., Lovenox 40 mg subcutaneous daily, Dilaudid 1 mg IV q. 3 hours p.r.n. severe pain, insulin was going at 1.5 units per hour, p.r.n. milk of magnesia, Zofran 4 mg IV q. 8 hours p.r.n. nausea and vomiting and was on D5 half NS I believe at 125 mL per hour. ALLERGIES: No known drug allergies. DIET: Thin gentleman. Denies significant weight loss or gain in the preceding few weeks to months. FAMILY AND SOCIAL HISTORY: Lives in the community, has 5+ pack-year tobacco smoking history. Denies alcohol or illicit drug use or abuse. Family history; otherwise, noncontributory. REVIEW OF SYSTEMS: A complete 14-system review of systems is obtained. Pertinent positives and/or negatives as in body of history above; otherwise, noncontributory. PHYSICAL EXAMINATION: VITAL SIGNS: At presentation in the Emergency Room revealed the vital signs shows that he was afebrile, temperature 98.2, pulse was 109, respiratory rate was 16, blood pressure 133/89, oxygen sats were 100%, inspired oxygen concentration was not recorded. HEAD, EYES, EARS, NOSE AND THROAT: Pupils are equal, round, about 3-4 mm, reactive to light. Extraocular muscle and movements are intact. Grossly, there were no palpable lymph nodes in the supraclavicular or submandibular lymph node chains. Oropharynx is in Mallampati #2 oropharynx. No significant posterior oropharyngeal erythema. LUNGS: Auscultation of both lung marc unremarkable. Lungs are clear bilaterally. HEART: Heart sounds 1 and 2 were heard. They were regular in rate and rhythm at the time of my evaluation. ABDOMEN: Soft, full, bowel sounds are positive, mild epigastric tender. EXTREMITIES: Without overt digital clubbing, cyanosis, or pedal edema. There were no open sores in the intertriginous areas and in between his toes. NEUROLOGIC: The exam was grossly nonfocal. LABORATORY DATA: From my review is as follows: Admission white cell count 11,200, hemoglobin 11.3, hematocrit 35.3 and platelet count 226. Arterial blood gas at presentation showed a pH of 7.31, pCO2 of 21, pO2 of 112, this was on room air. Serum sodium was 133, potassium 4.6, chloride 89, bicarbonate 11, BUN 33, creatinine 1.1, glucose 602. Hemoglobin A1c 10.4, BNP was 477. Urinalysis was unremarkable, negative for nitrites and leukocyte esterase. glucose. Urine drug screen was presumptive positive for methadone. I do not have any radiographic studies. No blood cultures or other cultures. ASSESSMENT AND PLAN: We have a middle-aged gentleman apparently not too compliant with his diabetic treatment in with diabetic ketoacidosis history and better. He will be transitioned from the IV insulin therapy once the new basic metabolic panel is back. I am almost certain his anion gap would have closed. Clinically, he is feeling little bit better. We will continue IV fluids for now. We will institute long acting insulin therapy once we get the results back. He is appropriately on deep venous thrombosis prophylaxis. He will be placed on gastrointestinal prophylaxis. Flu and pneumonia vaccination will be per protocol. Thank you very much for the consult Dr. Kwan. We will follow along with further recommendations as picture progresses/becomes clearer. Hopefully, he is doing better shortly, and might even be transferred to the regular floor later today. JOB# [id number] AC/NTS
[2017-05-30] MEDS: LEVEMIR SUB-Q SCH (17:04)
[2017-05-31] MEDS: DILAUDID IV PRN ×8 (00:10→23:09)
[2017-05-31] MEDS: LOVENOX SUB-Q SCH (09:37)
[2017-05-31] MEDS: PEPCID PO SCH (09:37)
--- NOTE | 2017-05-31 11:31 | Progress Note ---
Assessment and Plan Assessment and plan: DKA. Resolved. Metabolic encephalopathy. Resolved. Type 1 diabetes mellitus, uncontrolled. Much better control. Continue Lantus and sliding scale insulin. Nausea and vomiting. Etiology likely secondary to gastroparesis and ileus. Reglan IV every 6 hours. Ileus. Recheck KUB in a.m. Continue Reglan. Abdominal pain. Etiology secondary to above. Resolving. DVT prophylaxis. Continue Lovenox. Disposition. Anticipate discharge in a.m. History Interval history: Patient complains of mild abdominal pain that he states is much better. No chest pain or shortness of breath. However, patient complains of nausea that has improved Hospitalist Physical - Constitutional Vitals: Temp Pulse Resp BP Pulse Ox 98.5 F 80 18 122/89 99 05/31/17 08:00 05/31/17 08:00 05/31/17 08:00 05/31/17 08:00 05/31/17 08:00 General appearance: Present: no acute distress, well-nourished - EENT Eyes: Present: PERRL, EOM intact ENT: hearing intact, clear oral mucosa, dentition normal - Neck Neck: Present: supple, normal ROM - Respiratory Respiratory effort: normal Respiratory: bilateral: CTA - Cardiovascular Rhythm: regular Heart Sounds: Present: S1 & S2. Absent: gallop, rub - Extremities Extremities: no ischemia, No edema, Full ROM - Abdominal General gastrointestinal: soft, non-tender, non-distended, normal bowel sounds - Integumentary Integumentary: Present: clear, warm, dry - Neurologic Neurologic: CNII-XII intact, moves all extremities Results - Labs CBC & Chem 7: 05/29/17 03:34 05/29/17 11:11 Labs: Laboratory Last Values WBC 10.1 K/mm3 (4.5-11.0) 05/29/17 03:34 RBC 3.84 M/mm3 (3.65-5.03) 05/29/17 03:34 Hgb 11.0 gm/dl (11.8-15.2) L 05/29/17 03:34 Hct 33.0 % (35.5-45.6) L 05/29/17 03:34 MCV 86 fl (84-94) 05/29/17 03:34 MCH 29 pg (28-32) 05/29/17 03:34 MCHC 33 % (32-34) 05/29/17 03:34 RDW 14.8 % (13.2-15.2) 05/29/17 03:34 Plt Count 242 K/mm3 (140-440) 05/29/17 03:34 Lymph % (Auto) 16.6 % (13.4-35.0) 05/29/17 03:34 [place] % (Auto) 4.7 % (0.0-7.3) 05/29/17 03:34 Eos % (Auto) 0.1 % (0.0-4.3) 05/29/17 03:34 Baso % (Auto) 0.8 % (0.0-1.8) 05/29/17 03:34 Lymph # 1.7 K/mm3 (1.2-5.4) 05/29/17 03:34 [place] # 0.5 K/mm3 (0.0-0.8) 05/29/17 03:34 Eos # 0.0 K/mm3 (0.0-0.4) 05/29/17 03:34 Baso # 0.1 K/mm3 (0.0-0.1) 05/29/17 03:34 Seg Neutrophils % 77.8 % (40.0-70.0) H 05/29/17 03:34 Seg Neutrophils # 7.9 K/mm3 (1.8-7.7) H 05/29/17 03:34 POC ABG pH 7.314 (7.35-7.45) L 05/28/17 17:35 POC ABG pCO2 20.7 (35-45) L 05/28/17 17:35 POC ABG pO2 112 (80-105) H 05/28/17 17:35 POC ABG HCO3 10.5 05/28/17 17:35 POC ABG Total CO2 11 05/28/17 17:35 POC ABG O2 Sat 98 05/28/17 17:35 POC ABG Base Excess -16 05/28/17 17:35 VBG pH 7.323 (7.320-7.420) 05/28/17 16:47 FiO2 21 % 05/28/17 17:35 Sodium 141 mmol/L (137-145) 05/29/17 11:11 Potassium 3.2 mmol/L (3.6-5.0) L 05/29/17 11:11 Chloride 106.4 mmol/L (98-107) 05/29/17 11:11 Carbon Dioxide 22 mmol/L (22-30) D 05/29/17 11:11 Anion Gap 16 mmol/L 05/29/17 11:11 BUN 23 mg/dL (9-20) H 05/29/17 11:11 Creatinine 0.9 mg/dL (0.8-1.5) 05/29/17 11:11 Estimated GFR > 60 ml/min 05/29/17 11:11 BUN/Creatinine Ratio 25.55 % 05/29/17 11:11 Glucose 111 mg/dL (75-100) H 05/29/17 11:11 POC Glucose 89 (70-105) 05/31/17 06:14 Hemoglobin A1c 10.4 % (4-6) H 05/28/17 16:47 Calcium 8.5 mg/dL (8.4-10.2) 05/29/17 11:11 Phosphorus 2.00 mg/dL (2.5-4.5) L 05/29/17 01:52 Magnesium 2.00 mg/dL (1.7-2.3) 05/29/17 01:52 Total Bilirubin 0.30 mg/dL (0.1-1.2) 05/29/17 03:34 AST 28 units/L (5-40) 05/29/17 03:34 ALT 43 units/L (7-56) 05/29/17 03:34 Alkaline Phosphatase 178 units/L (35-129) H 05/29/17 03:34 NT-Pro-B Natriuret Pep 477.3 pg/mL (0-450) H 05/28/17 17:41 Total Protein 7.0 g/dL (6.3-8.2) 05/29/17 03:34 Albumin 3.3 g/dL (3.9-5) L 05/29/17 03:34 Albumin/Globulin Ratio 0.9 % 05/29/17 03:34 Urine Color Straw (Yellow) 05/28/17 18:37 Urine Turbidity Clear (Clear) 05/28/17 18:37 Urine pH 5.0 (5.0-7.0) 05/28/17 18:37 Ur Specific [place] 1.024 (1.003-1.030) 05/28/17 18:37 Urine Protein <15 mg/dl mg/dL (Negative) 05/28/17 18:37 Urine Glucose (UA) >=500 mg/dL (Negative) 05/28/17 18:37 Urine Ketones 80 mg/dL (Negative) 05/28/17 18:37 Urine Blood Neg (Negative) 05/28/17 18:37 Urine Nitrite Neg (Negative) 05/28/17 18:37 Urine Bilirubin Neg (Negative) 05/28/17 18:37 Urine Urobilinogen < 2.0 mg/dL (<2.0) 05/28/17 18:37 Ur Leukocyte Esterase Neg (Negative) 05/28/17 18:37 Urine WBC (Auto) < 1.0 /HPF (0.0-6.0) 05/28/17 18:37 Urine RBC (Auto) 2.0 /HPF (0.0-6.0) 05/28/17 18:37 Urine Mucus Few /HPF 05/28/17 18:37 Urine Opiates Screen Presumptive negative 05/28/17 16:20 Urine Methadone Screen Presumptive positive 05/28/17 16:20 Ur Barbiturates Screen Presumptive negative 05/28/17 16:20 Ur Phencyclidine Scrn Presumptive negative 05/28/17 16:20 Ur Amphetamines Screen Presumptive negative 05/28/17 16:20 U Benzodiazepines Scrn Presumptive negative 05/28/17 16:20 Urine Cocaine Screen Presumptive negative 05/28/17 16:20 U Marijuana (THC) Screen Presumptive negative 05/28/17 16:20 Drugs of Abuse Note Disclamer 05/28/17 16:20
--- NOTE | 2017-05-31 11:54 | Event Note ---
Date: 05/31/17
[2017-05-31] MEDS: LEVEMIR SUB-Q SCH (17:41)
[2017-06-01] MEDS: DILAUDID IV PRN ×5 (02:00→11:36)
[2017-06-01 08:05] VITALS: BP 139/98
--- NOTE | 2017-06-01 09:27 | Discharge Summary ---
Providers - Providers Date of Admission: 05/28/17 20:55 Date of discharge: 06/01/17 Attending physician: JAYNE MEDELLIN Primary care physician: OSTRICH FARMER Hospitalization Reason for admission: dka Condition: Critical Hospital course: The patient is a 42-year-old male with a history of type 1 diabetes who presents for evaluation of abdominal pain and altered mental status. The patient reported one day of abdominal pain, 10/10 in severity, crampy in quality , epigastric in location, and exacerbated with vomiting prior to admission. He is also has experienced nausea and multiple episodes of nonbilious, nonbloody emesis. He admits to waxing and waning confusion. The patient was admitted with DKA and metabolic encephalopathy. The patient was treated with IV fluid hydration and IV insulin drip. The anion gap closes and DKA resolved. Therefore, patient was transitioned to long-acting insulin. Patient still had some nausea and mild abdominal pain. KUB revealed ileus. Etiology likely secondary to gastroparesis. Patient was treated with Reglan. Abdominal pain and nausea/vomiting resolved. Patient is felt to have received maximal hospital benefit. The dictated discharge time 32 minutes. Disposition: - TO HOME OR SELFCARE Time spent for discharge: 32 - Discharge Diagnoses (1) Ileus Status: Acute (2) Abdominal pain, acute, epigastric Status: Acute (3) Altered mental status Status: Acute Qualifiers: Altered mental status type: transient alteration of awareness Coma depth: C Coma timing: C Qualified Code(s): R40.4 - Transient alteration of awareness (4) Diabetic ketoacidosis associated with type 1 diabetes mellitus Status: Acute Qualifiers: Diabetes mellitus complication detail: without coma Qualified Code(s): E10.10 - Type 1 diabetes mellitus with ketoacidosis without coma (5) Metabolic encephalopathy Status: Acute Core Measure Documentation - Palliative Care Palliative Care/ Comfort Measures: Not Applicable - Core Measures Any of the following diagnoses?: none Exam - Constitutional Vitals: Temp Pulse Resp BP Pulse Ox 99.4 F 91 H 20 139/98 99 06/01/17 08:04 06/01/17 08:04 06/01/17 08:22 06/01/17 08:04 06/01/17 08:04 General appearance: Present: no acute distress, well-nourished - EENT Eyes: Present: PERRL ENT: hearing intact, clear oral mucosa - Neck Neck: Present: supple, normal ROM - Respiratory Respiratory effort: normal Respiratory: bilateral: CTA - Cardiovascular Heart Sounds: Present: S1 & S2. Absent: rub, click - Extremities Extremities: pulses symmetrical, No edema Peripheral Pulses: within normal limits - Abdominal General gastrointestinal: Present: soft, non-tender, non-distended, normal bowel sounds Male genitourinary: Present: normal - Integumentary Integumentary: Present: clear, warm, dry - Musculoskeletal Musculoskeletal: gait normal, strength equal bilaterally - Psychiatric Psychiatric: appropriate mood/affect, intact judgment & insight - Neurologic Neurologic: CNII-XII intact, moves all extremities Plan Activity: no restrictions Weight Bearing Status: Full Weight Bearing Diet: diabetic Follow up with: PRIMARY CARE, [Primary Care Provider] - 3-5 Days Prescriptions: Insulin Lispro [Humalog 100 UNITS/ML Kwikpen] 10 units SQ TIDAC #30 [email or web address] Lantus Solostar 15 units SQ HS #30 Metoclopramide [Reglan] 10 mg PO TID #90 tab Xanax TAB 0.5 mg PO BID #30
--- NOTE | 2017-06-01 09:32 | XRay Report ---
Flat and upright of the abdomen: History: Ileus. Next Findings: Moderate amount of air in large bowel. Minimal and small bowel. Distended stomach with air. No radiopaque calculus or abnormal calcifications. Impression: No definite evidence of bowel obstruction. Early ileus cannot be excluded.
[2017-06-01] MEDS: LOVENOX SUB-Q SCH (09:43)
[2017-06-01] MEDS: PEPCID PO SCH (09:43)
== END 2017-06-01 12:50 | disposition home or self-care (01) | DRG 637 ==
LOC: ED 15:49 → CC1 20:55 → 3A 05-29 15:45
PROVIDERS: ADMIT Internal Medicine; ATTEND Hospitalist
PROC: 4A033R1 Measurement of Arterial Saturation, Peripheral, Percutaneous Approach (ICD-10-PCS; principal; 2017-05-28)
DX: E10.10 Type 1 diabetes mellitus with ketoacidosis without coma (principal); G93.41 Metabolic encephalopathy; K56.7 Ileus, unspecified; E10.43 Type 1 diabetes mellitus with diabetic autonomic (poly)neuropathy; K31.84 Gastroparesis; F17.200 Nicotine dependence, unspecified, uncomplicated; Z79.4 Long term (current) use of insulin
CPT/HCPCS: 36415; 74000; 80048; 80053; 80307; 81001; 82803; 82805; 82962; 83036; 83735; 83880; 84100; 85025; 93005; 93010; J1170; J1650; J1815; J1818; J2270; J2405; J3480; J7030

== ENCOUNTER 2017-06-03 22:48 | Emergency (ER) | payer SELFPAY | END 2017-06-03 23:00 | LOC: ED 22:48 | DX: Z53.21 Procedure and treatment not carried out due to patient leaving prior to being seen by health care provider (principal) ==

== ENCOUNTER 2017-06-22 20:08 | Inpatient (IN) | payer SELFPAY ==
[2017-06-22] MEDS ORDERED: LACTATED RINGERS 1,000 ML IV ONE ×2 (21:04→21:05)
[2017-06-22] MEDS ORDERED: MORPHINE IV ONE ×2 (21:11→22:41)
--- NOTE | 2017-06-22 21:15 | Emergency Department Report ---
ED General Adult HPI - General Stated complaint: HYPERGLYCEMIA Time Seen by Provider: 06/22/17 21:02 - History of Present Illness Initial comments: Patient is a 42-year-old male postural history of diabetes and HCV who presents with nausea vomiting and abdominal pain. Patient states symptoms occurred at 1.5 days ago he has a history of IV drug use. Patient states that he ran out of insulin and that he has been breathing very heavily. Patient states that he is also nauseous he has been dry heaving for the last couple of hours. Patient' s abdominal pain so. In the epigastric area as an 8 out 10 and radiates to his chest. Nothing makes it better or worse it is an achy type of pain. - Related Data Previous Rx's Medication Instructions Recorded Last Taken Type Insulin Lispro [Humalog 100 10 units SQ TIDAC #30 insuln.pen 06/01/17 Unknown Rx UNITS/ML Kwikpen] Lantus Solostar 15 units SQ HS #30 06/01/17 Unknown Rx Metoclopramide [Reglan] 10 mg PO TID #90 tab 06/01/17 Unknown Rx Xanax TAB 0.5 mg PO BID #30 06/01/17 Unknown Rx Allergies Allergy/AdvReac Type Severity Reaction Status Date / Time No Known Allergies Allergy Verified 07/26/16 17:02 ED Review of Systems ROS: Stated complaint: HYPERGLYCEMIA Other details as noted in HPI Constitutional: denies: chills, fever Eyes: denies: eye pain, eye discharge, vision change ENT: denies: ear pain, throat pain Respiratory: shortness of breath. denies: cough, wheezing Cardiovascular: denies: chest pain, palpitations Endocrine: no symptoms reported Gastrointestinal: abdominal pain, nausea. denies: diarrhea Genitourinary: denies: urgency, dysuria Musculoskeletal: denies: back pain, joint swelling, arthralgia Skin: denies: rash, lesions Neurological: denies: headache, weakness, paresthesias Psychiatric: denies: anxiety, depression Hematological/Lymphatic: denies: easy bleeding, easy bruising ED Past Medical Hx - Past Medical History Hx Hypertension: No Hx Heart Attack/AMI: No Hx Congestive Heart Failure: No Hx Diabetes: Yes Hx Deep Vein Thrombosis: No Hx Pulmonary Embolism: No Hx GERD: No Hx Liver Disease: Yes (hep c) Hx Renal Disease: No Hx Arthritis: No Hx Kidney Stones: No Hx Asthma: No Hx COPD: No Hx Tuberculosis: No Hx HIV: No Additional medical history: Hepatitis C - Surgical History Hx Coronary Stent: No Hx Open Heart Surgery: No Hx Pacemaker: No Hx Internal Defibrillator: No Hx Cholecystectomy: No Hx Appendectomy: No Hx Breast Surgery: No Additional Surgical History: tonsillectomy - Social History Smoking Status: Current Every Day Smoker - Medications Home Medications: Home Medications Medication Instructions Recorded Confirmed Last Taken Type Insulin Lispro [Humalog 100 10 units SQ TIDAC #30 insuln.pen 06/01/17 06/22/17 Unknown Rx UNITS/ML Kwikpen] Lantus Solostar 15 units SQ HS #30 06/01/17 06/22/17 Unknown Rx Metoclopramide [Reglan] 10 mg PO TID #90 tab 06/01/17 06/22/17 Unknown Rx Xanax TAB 0.5 mg PO BID #30 06/01/17 06/22/17 Unknown Rx ED Course Vital Signs 06/22/17 06/22/17 06/22/17 21:06 22:32 22:44 Temperature 97.4 F L Pulse Rate 120 H 119 H 111 H Respiratory 16 28 H 21 Rate Blood Pressure 120/74 O2 Sat by Pulse 100 Oximetry 06/22/17 06/22/17 06/22/17 22:46 22:57 23:00 Temperature Pulse Rate 113 H 112 H 112 H Respiratory 20 22 24 Rate Blood Pressure 97/32 100/35 90/44 O2 Sat by Pulse 99 Oximetry 06/22/17 06/22/17 06/22/17 23:15 23:30 23:45 Temperature Pulse Rate 110 H 110 H 111 H Respiratory 21 20 21 Rate Blood Pressure 96/34 111/33 87/45 O2 Sat by Pulse 100 Oximetry 06/23/17 06/23/17 06/23/17 00:00 00:16 00:30 Temperature Pulse Rate 111 H 111 H 107 H Respiratory 21 22 22 Rate Blood Pressure 79/20 84/26 90/38 O2 Sat by Pulse 98 Oximetry 06/23/17 06/23/17 06/23/17 00:45 01:00 01:16 Temperature Pulse Rate 109 H 111 H 114 H Respiratory 18 18 19 Rate Blood Pressure 102/39 97/41 102/60 O2 Sat by Pulse 98 100 Oximetry 10/06/23/17 06/23/17 01:30 01:46 02:00 Temperature Pulse Rate 116 H 116 H 118 H Respiratory 16 19 21 Rate Blood Pressure 91/35 80/62 93/37 O2 Sat by Pulse 100 99 100 Oximetry 06/23/17 06/23/17 06/23/17 02:16 02:30 02:46 Temperature Pulse Rate 113 H 112 H 116 H Respiratory 19 22 20 Rate Blood Pressure 92/48 89/52 96/50 O2 Sat by Pulse 100 100 100 Oximetry - Reevaluation(s) Reevaluation #1: 06/22/17 22:24 Patient pulled out EJ line he will require central line Reevaluation #2: 06/23/17 23:24 Patient has been combative to staff he will get 5 of Ativan and 2 of her said Reevaluation #3: 06/23/17 01:25 Patient is still acidotic central line has been placed in and he has been getting fluid boluses - Central Line Placement Right IJ Consent Obtained: verbal consent, emergent situation Time Out Performed: Yes Patient Placed on Monitor/Pulse Ox: Yes MD Prep: mask, gown Central Line Prep: Povidone-Iodine 1%, Chlorhexidine scrub, sterile drapes applied Local Anesthesia Used: Lidocaine 1% Amount of Anesthesia Used (mls): 5 Ultrasound Used for Placement: Yes Central Line Position: good blood return Dressing Applied: Tegaderm Post Procedure X-Ray: tip of catheter in good p Patient Tolerated Procedure: well Complications: none ED Medical Decision Making - Lab Data Result diagrams: 06/22/17 21:14 06/23/17 00:10 Lab Results 06/22/17 06/22/17 06/22/17 Range/Units 10:30 10:30 21:14 WBC 17.8 H 14.0 H (4.5-11.0) K/mm3 RBC 4.05 4.42 (3.65-5.03) M/mm3 Hgb 11.4 L 12.5 (11.8-15.2) gm/dl Hct 41.5 44.3 (35.5-45.6) % MCV 103 H 100 H (84-94) fl MCH 28 28 (28-32) pg MCHC 28 L 28 L (32-34) % RDW 16.0 H 16.4 H (13.2-15.2) % Plt Count 374 356 (140-440) K/mm3 Lymph % (Auto) 12.7 L (13.4-35.0) % [place] % (Auto) 5.2 (0.0-7.3) % Eos % (Auto) 0.2 (0.0-4.3) % Baso % (Auto) 0.8 (0.0-1.8) % Lymph # 2.3 (1.2-5.4) K/mm3 [place] # 0.9 H (0.0-0.8) K/mm3 Eos # 0.0 (0.0-0.4) K/mm3 Baso # 0.1 (0.0-0.1) K/mm3 Add Manual Diff Complete Total Counted 100 Seg Neutrophils % 81.1 H (40.0-70.0) % Seg Neuts % (Manual) 92.0 H (40.0-70.0) % Band Neutrophils % 0 % Lymphocytes % (Manual) 5.0 L (13.4-35.0) % Reactive Lymphs % (Man) 0 % Monocytes % (Manual) 3.0 (0.0-7.3) % Eosinophils % (Manual) 0 (0.0-4.3) % Basophils % (Manual) 0 (0.0-1.8) % Metamyelocytes % 0 % Myelocytes % 0 % Promyelocytes % 0 % Blast Cells % 0 % Nucleated RBC % Not Reportable Seg Neutrophils # 14.4 H (1.8-7.7) K/mm3 Seg Neutrophils # Man 12.9 H (1.8-7.7) K/mm3 Band Neutrophils # 0.0 K/mm3 Lymphocytes # (Manual) 0.7 L (1.2-5.4) K/mm3 Abs React Lymphs (Man) 0.0 K/mm3 Monocytes # (Manual) 0.4 (0.0-0.8) K/mm3 Eosinophils # (Manual) 0.0 (0.0-0.4) K/mm3 Basophils # (Manual) 0.0 (0.0-0.1) K/mm3 Metamyelocytes # 0.0 K/mm3 Myelocytes # 0.0 K/mm3 Promyelocytes # 0.0 K/mm3 Blast Cells # 0.0 K/mm3 WBC Morphology Not Reportable Hypersegmented Neuts Not Reportable Hyposegmented Neuts Not Reportable Hypogranular Neuts Not Reportable Smudge Cells Not Reportable Toxic Granulation Not Reportable Toxic Vacuolation Not Reportable Dohle Bodies Not Reportable Pelger-Huet Anomaly Not Reportable Deyanira Rods Not Reportable Platelet Estimate Consistent w auto Clumped Platelets Not Reportable Plt Clumps, EDTA Not Reportable Large Platelets Few Giant Platelets Not Reportable Platelet Satelliting Not Reportable Plt Morphology Comment Not Reportable RBC Morphology Not Reportable Dimorphic RBCs Not Reportable Polychromasia Not Reportable Hypochromasia Not Reportable Poikilocytosis Not Reportable Anisocytosis Few Microcytosis Not Reportable Macrocytosis Not Reportable Spherocytes Not Reportable Pappenheimer Bodies Not Reportable Sickle Cells Not Reportable Target Cells Not Reportable Tear Drop Cells Not Reportable Ovalocytes Not Reportable Helmet Cells Not Reportable [place] Bodies Not Reportable [place] Rings Not Reportable Shawn Cells Not Reportable Bite Cells Not Reportable Crenated Cell Not Reportable Elliptocytes Not Reportable Acanthocytes (Spur) Not Reportable Rouleaux Not Reportable Hemoglobin C Crystals Not Reportable Schistocytes Not Reportable Malaria parasites Not Reportable Andrei Bodies Not Reportable Hem Pathologist Commnt No Sodium 129 L (137-145) mmol/L Potassium 5.3 H (3.6-5.0) mmol/L Chloride 77.5 L (98-107) mmol/L Carbon Dioxide < 2.0 L* (22-30) mmol/L Anion Gap 55 mmol/L BUN 27 H (9-20) mg/dL Creatinine 1.4 (0.8-1.5) mg/dL Estimated GFR 56 ml/min BUN/Creatinine Ratio 19 % Glucose 1087 H* (75-100) mg/dL POC Glucose (70-105) Ketones Quantitative Large (Negative) Calcium 9.0 (8.4-10.2) mg/dL Total Bilirubin 0.40 (0.1-1.2) mg/dL AST 51 H (5-40) units/L ALT 58 H (7-56) units/L Alkaline Phosphatase 225 H (35-129) units/L Total Protein 6.7 (6.3-8.2) g/dL Albumin 3.5 L (3.9-5) g/dL Albumin/Globulin Ratio 1.1 % Urine Color (Yellow) Urine Turbidity (Clear) Urine pH (5.0-7.0) Ur Specific [place] (1.003-1.030) Urine Protein (Negative) mg/dL Urine Glucose (UA) (Negative) mg/dL Urine Ketones (Negative) mg/dL Urine Blood (Negative) Urine Nitrite (Negative) Urine Bilirubin (Negative) Urine Urobilinogen (<2.0) mg/dL Ur Leukocyte Esterase (Negative) Urine WBC (Auto) (0.0-6.0) /HPF Urine RBC (Auto) (0.0-6.0) /HPF U Epithel Cells (Auto) (0-13.0) /HPF Urine Bacteria (Auto) (Negative) /HPF Urine Mucus /HPF 06/22/17 06/22/17 06/22/17 Range/Units 21:14 21:14 21:22 WBC (4.5-11.0) K/mm3 RBC (3.65-5.03) M/mm3 Hgb (11.8-15.2) gm/dl Hct (35.5-45.6) % MCV (84-94) fl MCH (28-32) pg MCHC (32-34) % RDW (13.2-15.2) % Plt Count (140-440) K/mm3 Lymph % (Auto) (13.4-35.0) % [place] % (Auto) (0.0-7.3) % Eos % (Auto) (0.0-4.3) % Baso % (Auto) (0.0-1.8) % Lymph # (1.2-5.4) K/mm3 [place] # (0.0-0.8) K/mm3 Eos # (0.0-0.4) K/mm3 Baso # (0.0-0.1) K/mm3 Add Manual Diff Total Counted Seg Neutrophils % (40.0-70.0) % Seg Neuts % (Manual) (40.0-70.0) % Band Neutrophils % % Lymphocytes % (Manual) (13.4-35.0) % Reactive Lymphs % (Man) % Monocytes % (Manual) (0.0-7.3) % Eosinophils % (Manual) (0.0-4.3) % Basophils % (Manual) (0.0-1.8) % Metamyelocytes % % Myelocytes % % Promyelocytes % % Blast Cells % % Nucleated RBC % Seg Neutrophils # (1.8-7.7) K/mm3 Seg Neutrophils # Man (1.8-7.7) K/mm3 Band Neutrophils # K/mm3 Lymphocytes # (Manual) (1.2-5.4) K/mm3 Abs React Lymphs (Man) K/mm3 Monocytes # (Manual) (0.0-0.8) K/mm3 Eosinophils # (Manual) (0.0-0.4) K/mm3 Basophils # (Manual) (0.0-0.1) K/mm3 Metamyelocytes # K/mm3 Myelocytes # K/mm3 Promyelocytes # K/mm3 Blast Cells # K/mm3 WBC Morphology Hypersegmented Neuts Hyposegmented Neuts Hypogranular Neuts Smudge Cells Toxic Granulation Toxic Vacuolation Dohle Bodies Pelger-Huet Anomaly Deyanira Rods Platelet Estimate Clumped Platelets Plt Clumps, EDTA Large Platelets Giant Platelets Platelet Satelliting Plt Morphology Comment RBC Morphology Dimorphic RBCs Polychromasia Hypochromasia Poikilocytosis Anisocytosis Microcytosis Macrocytosis Spherocytes Pappenheimer Bodies Sickle Cells Target Cells Tear Drop Cells Ovalocytes Helmet Cells Hernandez[place] Bodies [place] Rings Shawn Cells Bite Cells Crenated Cell Elliptocytes Acanthocytes (Spur) Rouleaux Hemoglobin C Crystals Schistocytes Malaria parasites Andrei Bodies Hem Pathologist Commnt Sodium TNR (137-145) mmol/L Potassium TNR (3.6-5.0) mmol/L Chloride TNR (98-107) mmol/L Carbon Dioxide TNR (22-30) mmol/L Anion Gap TNR mmol/L BUN TNR (9-20) mg/dL Creatinine TNR (0.8-1.5) mg/dL Estimated GFR TNR ml/min BUN/Creatinine Ratio TNR % Glucose TNR (75-100) mg/dL POC Glucose (70-105) Ketones Quantitative Large (Negative) Calcium TNR (8.4-10.2) mg/dL Total Bilirubin TNR (0.1-1.2) mg/dL AST TNR (5-40) units/L ALT TNR (7-56) units/L Alkaline Phosphatase TNR (35-129) units/L Total Protein TNR (6.3-8.2) g/dL Albumin TNR (3.9-5) g/dL Albumin/Globulin Ratio TNR % Urine Color Straw (Yellow) Urine Turbidity Clear (Clear) Urine pH 5.0 (5.0-7.0) Ur Specific [place] 1.021 (1.003-1.030) Urine Protein <15 mg/dl (Negative) mg/dL Urine Glucose (UA) >=500 (Negative) mg/dL Urine Ketones 80 (Negative) mg/dL Urine Blood Sm (Negative) Urine Nitrite Neg (Negative) Urine Bilirubin Neg (Negative) Urine Urobilinogen < 2.0 (<2.0) mg/dL Ur Leukocyte Esterase Neg (Negative) Urine WBC (Auto) < 1.0 (0.0-6.0) /HPF Urine RBC (Auto) < 1.0 (0.0-6.0) /HPF U Epithel Cells (Auto) < 1.0 (0-13.0) /HPF Urine Bacteria (Auto) 1+ (Negative) /HPF Urine Mucus Few /HPF 06/22/17 06/22/17 06/23/17 Range/Units 21:25 22:46 00:10 WBC (4.5-11.0) K/mm3 RBC (3.65-5.03) M/mm3 Hgb (11.8-15.2) gm/dl Hct (35.5-45.6) % MCV (84-94) fl MCH (28-32) pg MCHC (32-34) % RDW (13.2-15.2) % Plt Count (140-440) K/mm3 Lymph % (Auto) (13.4-35.0) % [place] % (Auto) (0.0-7.3) % Eos % (Auto) (0.0-4.3) % Baso % (Auto) (0.0-1.8) % Lymph # (1.2-5.4) K/mm3 [place] # (0.0-0.8) K/mm3 Eos # (0.0-0.4) K/mm3 Baso # (0.0-0.1) K/mm3 Add Manual Diff Total Counted Seg Neutrophils % (40.0-70.0) % Seg Neuts % (Manual) (40.0-70.0) % Band Neutrophils % % Lymphocytes % (Manual) (13.4-35.0) % Reactive Lymphs % (Man) % Monocytes % (Manual) (0.0-7.3) % Eosinophils % (Manual) (0.0-4.3) % Basophils % (Manual) (0.0-1.8) % Metamyelocytes % % Myelocytes % % Promyelocytes % % Blast Cells % % Nucleated RBC % Seg Neutrophils # (1.8-7.7) K/mm3 Seg Neutrophils # Man (1.8-7.7) K/mm3 Band Neutrophils # K/mm3 Lymphocytes # (Manual) (1.2-5.4) K/mm3 Abs React Lymphs (Man) K/mm3 Monocytes # (Manual) (0.0-0.8) K/mm3 Eosinophils # (Manual) (0.0-0.4) K/mm3 Basophils # (Manual) (0.0-0.1) K/mm3 Metamyelocytes # K/mm3 Myelocytes # K/mm3 Promyelocytes # K/mm3 Blast Cells # K/mm3 WBC Morphology Hypersegmented Neuts Hyposegmented Neuts Hypogranular Neuts Smudge Cells Toxic Granulation Toxic Vacuolation Dohle Bodies Pelger-Huet Anomaly Deyanira Rods Platelet Estimate Clumped Platelets Plt Clumps, EDTA Large Platelets Giant Platelets Platelet Satelliting Plt Morphology Comment RBC Morphology Dimorphic RBCs Polychromasia Hypochromasia Poikilocytosis Anisocytosis Microcytosis Macrocytosis Spherocytes Pappenheimer Bodies Sickle Cells Target Cells Tear Drop Cells Ovalocytes Helmet Cells Hernandez-[place] Bodies [place] Rings [place] Cells Bite Cells Crenated Cell Elliptocytes Acanthocytes (Spur) Rouleaux Hemoglobin C Crystals Schistocytes Malaria parasites Andrei Bodies Hem Pathologist Commnt Sodium 130 L 129 L (137-145) mmol/L Potassium 5.7 H 5.6 H (3.6-5.0) mmol/L Chloride 78.8 L 77.1 L (98-107) mmol/L Carbon Dioxide 3 L* 3 L* (22-30) mmol/L Anion Gap 55 mmol/L BUN 28 H (9-20) mg/dL Creatinine 1.3 1.4 (0.8-1.5) mg/dL Estimated GFR > 60 56 ml/min BUN/Creatinine Ratio 20 % Glucose 1021 H* (75-100) mg/dL POC Glucose > 500 H (70-105) Ketones Quantitative (Negative) Calcium 9.1 (8.4-10.2) mg/dL Total Bilirubin (0.1-1.2) mg/dL AST (5-40) units/L ALT (7-56) units/L Alkaline Phosphatase (35-129) units/L Total Protein (6.3-8.2) g/dL Albumin (3.9-5) g/dL Albumin/Globulin Ratio % Urine Color (Yellow) Urine Turbidity (Clear) Urine pH (5.0-7.0) Ur Specific [place] (1.003-1.030) Urine Protein (Negative) mg/dL Urine Glucose (UA) (Negative) mg/dL Urine Ketones (Negative) mg/dL Urine Blood (Negative) Urine Nitrite (Negative) Urine Bilirubin (Negative) Urine Urobilinogen (<2.0) mg/dL Ur Leukocyte Esterase (Negative) Urine WBC (Auto) (0.0-6.0) /HPF Urine RBC (Auto) (0.0-6.0) /HPF U Epithel Cells (Auto) (0-13.0) /HPF Urine Bacteria (Auto) (Negative) /HPF Urine Mucus /HPF - Radiology Data Radiology results: report reviewed, image reviewed Chest x-ray: Shows Right IJ central line placement - Medical Decision Making Chief medical diagnosis: DKA Differential medical diagnosis: Hyperglycemia, hyperglycemic hyperosmolar Nonketotic state I will get IV IV fluids, IV pain medication, IV antiemetics, ABG, CBC, CMP Patient has severe DKA and has been very combative he required 2 of Ativan and 5 of Haldol as well as Benadryl and morphine. Patient is requesting numerous times for morphine and refuses to get any IV until he gets his morphine. Patient will be admitted to the hospitalist service to the ICU. Critical Care Time: Yes (185) Critical care time in (mins) excluding proc time.: 185 Critical care attestation.: If time is entered above; I have spent that time in minutes in the direct care of this critically ill patient, excluding procedure time. Critical care time spent at patient's bedside 140 minutes Critical care time spent reviewing patient's old medical records 20 minutes Critical care time spent reviewing patient's labatory findings 20 minutes Critical care time spent with institutional nutrition consultant 5 minutes. ED Disposition Clinical Impression: Hyperosmolality due to uncontrolled type 1 diabetes mellitus, Metabolic encephalopathy, Hyperkalemia DKA (diabetic ketoacidoses) Qualifiers: Diabetes mellitus type: type 1 Diabetes mellitus complication detail: without coma Qualified Code(s): E10.10 - Type 1 diabetes mellitus with ketoacidosis without coma Disposition: OP ADMIT IP TO THIS HOSP Is pt being admited?: Yes Does the pt Need Aspirin: No Condition: Stable Instructions: Diabetic Ketoacidosis (ED), Diabetes Mellitus Type 2 in Adults ( ED) Referrals: PRIMARY CARE, [Primary Care Provider] - 3-5 Days
[2017-06-22 21:32] LABS: Mean Corpuscular HGB Conc 28 % (32-34); Mean Corpuscular Hemoglobin 28 pg (28-32); Mean Corpuscular Volume 100 fl (84-94); Platelet Count 356 K/mm3 (140-440); Red Blood Count 4.42 M/mm3 (3.65-5.03); Red Cell Distribution Width 16.4 % (13.2-15.2)
[2017-06-22 21:35] LABS: Hematocrit 44.3 % (35.5-45.6); Hemoglobin 12.5 gm/dl (11.8-15.2)
[2017-06-22 21:46] LABS: Bacteria,Urine 1+ /HPF (Negative); Bilirubin,Urine NEG (Negative); Blood,Urine SM (Negative); Ketones,Urine 80 mg/dL (Negative); Leukocyte Esterase,Urine NEG (Negative); Mucus,Urine FEW /HPF; Nitrite,Urine NEG (Negative); Protein,Urine <15 mg/dL mg/dL (Negative); RBC,Urine < 1.0 /HPF (0.0-6.0); Urobilinogen,Urine < 2.0 mg/dL (<2.0); WBC,Urine < 1.0 /HPF (0.0-6.0)
[2017-06-22] MEDS ORDERED: ATIVAN IV ONE (21:57)
[2017-06-22] MEDS ORDERED: HALDOL IM ONE (21:57)
[2017-06-22 22:16] LABS: Sodium TNR mmol/L (137-145)
[2017-06-22 22:17] LABS: Anion Gap TNR mmol/L; BUN/Creatinine Ratio TNR; Blood Urea Nitrogen TNR mg/dL (9-20); Carbon Dioxide TNR mmol/L (22-30); Chloride TNR mmol/L (98-107); Glucose TNR mg/dL (75-100); Potassium TNR mmol/L (3.6-5.0)
[2017-06-22 22:18] LABS: Alanine Aminotransferase TNR units/L (7-56); Albumin TNR g/dL (3.9-5); Bilirubin,Total TNR mg/dL (0.1-1.2); Calcium TNR mg/dL (8.4-10.2); Total Protein TNR g/dL (6.3-8.2)
[2017-06-22 22:19] LABS: Albumin/Globulin Ratio TNR %; Alkaline Phosphatase TNR units/L (35-129)
[2017-06-22 22:23] LABS: Basophils % (Manual) 0 % (0.0-1.8); Blastocytes % (Manual) 0 %; Eosinophils % (Manual) 0 % (0.0-4.3)
[2017-06-22 22:24] LABS: Large Platelets Few; Platelet Estimate Consistent w Auto
[2017-06-22 22:25] LABS: Anisocytosis Few; Diff Status Complete
[2017-06-22] MEDS ORDERED: BENADRYL IV ONE (22:43)
[2017-06-22 22:49] LABS: Hematocrit 41.5 % (35.5-45.6); Hemoglobin 11.4 gm/dl (11.8-15.2); Red Blood Count 4.05 M/mm3 (3.65-5.03); White Blood Count 17.8 K/mm3 (4.5-11.0)
[2017-06-22 22:50] LABS: Basophils % (Auto) 0.8 % (0.0-1.8); Eosinophils % (Auto) 0.2 % (0.0-4.3); Mean Corpuscular HGB Conc 28 % (32-34); Mean Corpuscular Hemoglobin 28 pg (28-32); Mean Corpuscular Volume 103 fl (84-94); Platelet Count 374 K/mm3 (140-440)
[2017-06-22 23:04] LABS: Ketones Large (Negative)
[2017-06-22 23:08] LABS: Alanine Aminotransferase 58 units/L (7-56); Albumin 3.5 g/dL (3.9-5); Albumin/Globulin Ratio 1.1 %; Alkaline Phosphatase 225 units/L (35-129); BUN/Creatinine Ratio 19; Blood Urea Nitrogen 27 mg/dL (9-20); Chloride 77.5 mmol/L (98-107); Potassium 5.3 mmol/L (3.6-5.0); Sodium 129 mmol/L (137-145); Total Protein 6.7 g/dL (6.3-8.2)
[2017-06-22 23:09] LABS: Chloride 78.8 mmol/L (98-107); Potassium 5.7 mmol/L (3.6-5.0); Sodium 130 mmol/L (137-145)
[2017-06-22 23:16] LABS: Carbon Dioxide 3 mmol/L (22-30)
[2017-06-22 23:17] LABS: Anion Gap 55 mmol/L; Carbon Dioxide < 2.0 mmol/L (22-30); Glucose 1087 mg/dL (75-100)
[2017-06-22] MEDS ORDERED: NovoLIN R 100 UNITS in NACL 0.9% 99 ML IV SCH (23:45)
[2017-06-22] MEDS ORDERED: D50W (25GM) Syringe IV PRN (23:48)
[2017-06-23 00:35] LABS: Calcium 9.1 mg/dL (8.4-10.2); Chloride 77.1 mmol/L (98-107); Potassium 5.6 mmol/L (3.6-5.0)
[2017-06-23] MEDS ORDERED: LACTATED RINGERS 1,000 ML IV ONE ×2 (01:14)
[2017-06-23] MEDS ORDERED: SODIUM BICARBONATE 50 MEQ in NACL 0.9% 1000 ML 1,000 ML IV ONE ×2 (01:46→10:01)
[2017-06-23] MEDS ORDERED: SODIUM BICARBONATE IV ONE ×2 (02:38→02:47)
[2017-06-23] MEDS ORDERED: NACL 0.9% 1000 ML 2,000 ML ONE (02:39)
[2017-06-23] MEDS ORDERED: ZOSYN/NS 4.5GM/100ML 4.5 GM/100 ML VIAL IV ONE (02:44)
[2017-06-23] MEDS ORDERED: NACL 0.9% 1000 ML 1,000 ML IV ONE ×2 (02:47→02:49)
[2017-06-23] MEDS ORDERED: D50W (25GM) Syringe IV PRN (03:07)
[2017-06-23] MEDS ORDERED: TYLENOL PR PRN (03:07)
--- NOTE | 2017-06-23 03:10 | History and Physical Report ---
History of Present Illness Date of examination: 06/23/17 History of present illness: 42-year-old a history of diabetes, hep C, history of IV drug abuse,'s emergency room because he ran out of his insulin, has been having nausea vomiting. The patient was agitated in the emergency room, given IV Haldol and is now sedated, unable to obtain history or review of system PAST SURGICAL HISTORY: None SOCIAL HISTORY: Previously Smoke half pack a day, IV heroine use, no alcohol FAMILY HISTORY: Diabetes Medications and Allergies Allergies Allergy/AdvReac Type Severity Reaction Status Date / Time No Known Allergies Allergy Verified 07/26/16 17:02 Home Medications Medication Instructions Recorded Confirmed Last Taken Type Insulin Lispro [Humalog 100 10 units SQ TIDAC #30 insuln.pen 06/01/17 06/22/17 Unknown Rx UNITS/ML Kwikpen] Lantus Solostar 15 units SQ HS #30 06/01/17 06/22/17 Unknown Rx Metoclopramide [Reglan] 10 mg PO TID #90 tab 06/01/17 06/22/17 Unknown Rx Xanax TAB 0.5 mg PO BID #30 06/01/17 06/22/17 Unknown Rx Active Meds: Active Medications Dextrose (D50w (25gm) Syringe) 0 ml IV PRN PRN PRN Reason: Hypoglycemia Insulin Human Regular 100 (units/ Sodium Chloride) 100 mls @ 1 mls/hr IV TITR SHELIA; 1 UNITS/HR PRN Reason: Protocol Last Titration: 06/23/17 02:42 Dose: 8 units/hr, 8 mls/hr Sodium Bicarbonate 50 meq/ (Sodium Chloride) 1,050 mls @ 100 mls/hr IV ONCE.ED ONE Stop: 06/23/17 12:15 Last Admin: 06/23/17 02:47 Dose: Not Given Piperacillin Sod/Tazobactam Sod (Zosyn/Ns 4.5gm/100ml) 4.5 gm in 100 mls @ 200 mls/hr IV ONCE ONE Stop: 06/23/17 03:13 Sodium Chloride (Nacl 0.9% 1000 Ml) 1,000 mls @ 999 mls/hr IV BOLUS ONE Stop: 06/23/17 03:47 Last Admin: 06/23/17 02:50 Dose: 999 mls/hr Sodium Chloride (Nacl 0.9% 1000 Ml) 1,000 mls @ 999 mls/hr IV BOLUS ONE Stop: 06/23/17 03:49 Last Admin: 06/23/17 02:50 Dose: 999 mls/hr Sodium Bicarbonate (Sodium Bicarbonate) 100 meq IV ONCE ONE Stop: 06/23/17 02:48 Last Admin: 06/23/17 02:50 Dose: 100 meq Exam - Physical Exam Narrative exam: Gen. appearance: Patient lying in bed in no acute distress HEENT: Normocephalic/atraumatic, pupils equal round reactive to light, extra alkaline movement intact, no scleral icterus, no JVD or thyromegaly or nodule, neck is supple, mucous membrane extremely dry, unable to examine oral cavity Heart: S1-S2, regular rate and rhythm Lungs: Clear to auscultation anteriorly bilateral breathing comfortable Abdomen: Positive bowel sounds, soft, nondistended, no organomegaly Extremities: No edema, cyanosis, clubbing Neuro:: Sedated Skin: No rash, nodules, warm dry - Constitutional Vitals: Temp Pulse Resp BP Pulse Ox 97.4 F L 116 H 20 96/50 100 06/22/17 21:06 06/23/17 02:46 06/23/17 02:46 06/23/17 02:46 06/23/17 02:46 Results - Labs CBC & Chem 7: 06/22/17 21:14 06/24/17 00:00 Labs: Abnormal lab results 06/22/17 06/22/17 06/22/17 Range/Units 10:30 10:30 21:14 WBC 17.8 H 14.0 H (4.5-11.0) K/mm3 Hgb 11.4 L (11.8-15.2) gm/dl MCV 103 H 100 H (84-94) fl MCHC 28 L 28 L (32-34) % RDW 16.0 H 16.4 H (13.2-15.2) % Lymph % (Auto) 12.7 L (13.4-35.0) % [place] # 0.9 H (0.0-0.8) K/mm3 Seg Neutrophils % 81.1 H (40.0-70.0) % Seg Neuts % (Manual) 92.0 H (40.0-70.0) % Lymphocytes % (Manual) 5.0 L (13.4-35.0) % Seg Neutrophils # 14.4 H (1.8-7.7) K/mm3 Seg Neutrophils # Man 12.9 H (1.8-7.7) K/mm3 Lymphocytes # (Manual) 0.7 L (1.2-5.4) K/mm3 Sodium 129 L (137-145) mmol/L Potassium 5.3 H (3.6-5.0) mmol/L Chloride 77.5 L (98-107) mmol/L Carbon Dioxide < 2.0 L* (22-30) mmol/L BUN 27 H (9-20) mg/dL Glucose 1087 H* (75-100) mg/dL POC Glucose (70-105) AST 51 H (5-40) units/L ALT 58 H (7-56) units/L Alkaline Phosphatase 225 H (35-129) units/L Albumin 3.5 L (3.9-5) g/dL 06/22/17 06/22/17 06/23/17 Range/Units 21:25 22:46 00:10 WBC (4.5-11.0) K/mm3 Hgb (11.8-15.2) gm/dl MCV (84-94) fl MCHC (32-34) % RDW (13.2-15.2) % Lymph % (Auto) (13.4-35.0) % [place] # (0.0-0.8) K/mm3 Seg Neutrophils % (40.0-70.0) % Seg Neuts % (Manual) (40.0-70.0) % Lymphocytes % (Manual) (13.4-35.0) % Seg Neutrophils # (1.8-7.7) K/mm3 Seg Neutrophils # Man (1.8-7.7) K/mm3 Lymphocytes # (Manual) (1.2-5.4) K/mm3 Sodium 130 L 129 L (137-145) mmol/L Potassium 5.7 H 5.6 H (3.6-5.0) mmol/L Chloride 78.8 L 77.1 L (98-107) mmol/L Carbon Dioxide 3 L* 3 L* (22-30) mmol/L BUN 28 H (9-20) mg/dL Glucose 1021 H* (75-100) mg/dL POC Glucose > 500 H (70-105) AST (5-40) units/L ALT (7-56) units/L Alkaline Phosphatase (35-129) units/L Albumin (3.9-5) g/dL - Imaging and Cardiology EKG: image reviewed Chest x-ray: image reviewed Assessment and Plan Assessment DKA Metabolic acidosis Pseudohyponatremia Hyperkalemia Dehydration Leukocytosis Plan Continue insulin drip Gave to bolus of normal saline now and start IV fluids Give IV bicarbonate now, consult critical care Monitor fingersticks, electrolytes Start IV Zosyn, obtain cultures DVT prophylaxis
[2017-06-23] MEDS ORDERED: NovoLIN R 100 UNITS in NACL 0.9% 99 ML IV SCH (04:00)
[2017-06-23 04:21] LABS: Calcium 7.7 mg/dL (8.4-10.2); Chloride 93.6 mmol/L (98-107); Potassium 3.8 mmol/L (3.6-5.0)
[2017-06-23 04:29] LABS: Potassium TNR mmol/L (3.6-5.0); Sodium TNR mmol/L (137-145)
[2017-06-23 04:30] LABS: Anion Gap TNR mmol/L; BUN/Creatinine Ratio TNR; Blood Urea Nitrogen TNR mg/dL (9-20); Calcium TNR mg/dL (8.4-10.2); Carbon Dioxide TNR mmol/L (22-30); Chloride TNR mmol/L (98-107); Glucose TNR mg/dL (75-100)
[2017-06-23 04:55] LABS: Phosphorous 3.9 mg/dL (2.5-4.5)
[2017-06-23] MEDS: NACL 0.9% 1000 ML 1,000 ML IV SCH (05:01)
[2017-06-23 06:16] LABS: Calcium 8.2 mg/dL (8.4-10.2); Chloride 99.4 mmol/L (98-107)
[2017-06-23 07:22] LABS: Potassium 4.2 mmol/L (3.6-5.0)
[2017-06-23 09:13] LABS: BUN/Creatinine Ratio 19; Blood Urea Nitrogen 21 mg/dL (9-20); Calcium 8.2 mg/dL (8.4-10.2); Glucose 125 mg/dL (75-100)
[2017-06-23] MEDS ORDERED: D5/0.45NS 0 ML IV ONE (09:13)
[2017-06-23 09:14] LABS: Chloride 106.6 mmol/L (98-107); Sodium 147 mmol/L (137-145)
--- NOTE | 2017-06-23 09:15 | XRay Report ---
AP CHEST: 06/22/17 20:08:00 CLINICAL: Central line insertion. COMPARISON: 07/01/16 FINDINGS: A right IJ catheter tip is in the right atrium. The lungs are normally expanded and relatively clear.No pneumothorax. Normal heart and pulmonary vessels. IMPRESSION: Satisfactory line placement. No pneumothorax.
[2017-06-23] MEDS ORDERED: D5W/0.45% NACL/KCL 20 MEQ 20 MEQ/1,000 ML BAG IV ONE (09:16)
[2017-06-23 09:20] LABS: Anion Gap 22 mmol/L; Carbon Dioxide 21 mmol/L (22-30)
[2017-06-23] MEDS ORDERED: LOVENOX SUB-Q SCH (10:00)
[2017-06-23] MEDS ORDERED: D5W/0.45% NACL/KCL 10 MEQ 10 MEQ/1,000 ML BAG IV SCH (10:00)
[2017-06-23] MEDS ORDERED: D5W/0.45% NACL/KCL 20 MEQ 20 MEQ/1,000 ML BAG IV SCH (10:00)
[2017-06-23] MEDS: LOVENOX SUB-Q SCH (11:50)
[2017-06-23] MEDS ORDERED: LOVENOX SUB-Q ONE (11:50)
[2017-06-23 12:45] LABS: Anion Gap 17 mmol/L; BUN/Creatinine Ratio 20; Blood Urea Nitrogen 20 mg/dL (9-20); Calcium 7.8 mg/dL (8.4-10.2); Carbon Dioxide 25 mmol/L (22-30); Chloride 108.7 mmol/L (98-107); Glucose 137 mg/dL (75-100); Sodium 148 mmol/L (137-145)
[2017-06-23 12:48] LABS: Potassium 2.9 mmol/L (3.6-5.0)
--- NOTE | 2017-06-23 14:04 | Event Note ---
Date: 06/23/17 patient was seen and evaluated this morning , He is held in the ED to be admitted to ICU. patient admission diagnosis is DKA and on appropriate treatment.
[2017-06-23 16:25] LABS: Anion Gap 15 mmol/L; BUN/Creatinine Ratio 22; Blood Urea Nitrogen 20 mg/dL (9-20); Calcium 7.7 mg/dL (8.4-10.2); Carbon Dioxide 26 mmol/L (22-30); Chloride 108.6 mmol/L (98-107); Glucose 123 mg/dL (75-100); Potassium 3.1 mmol/L (3.6-5.0); Sodium 146 mmol/L (137-145)
[2017-06-23 20:12] LABS: Anion Gap 15 mmol/L; BUN/Creatinine Ratio 25; Blood Urea Nitrogen 20 mg/dL (9-20); Calcium 7.7 mg/dL (8.4-10.2); Carbon Dioxide 26 mmol/L (22-30); Chloride 112.1 mmol/L (98-107); Glucose 149 mg/dL (75-100); Potassium 3.4 mmol/L (3.6-5.0); Sodium 150 mmol/L (137-145)
[2017-06-24 00:27] LABS: Anion Gap 18 mmol/L; BUN/Creatinine Ratio 20; Blood Urea Nitrogen 18 mg/dL (9-20); Calcium 7.4 mg/dL (8.4-10.2); Carbon Dioxide 22 mmol/L (22-30); Chloride 107.1 mmol/L (98-107); Glucose 230 mg/dL (75-100); Sodium 144 mmol/L (137-145)
[2017-06-24 00:38] LABS: Potassium 2.6 mmol/L (3.6-5.0)
[2017-06-24] MEDS ORDERED: K-DUR PO STA (01:19)
[2017-06-24 04:30] LABS: Basophils % (Auto) 0.8 % (0.0-1.8); Eosinophils % (Auto) 0.1 % (0.0-4.3); Hematocrit 33.7 % (35.5-45.6); Mean Corpuscular HGB Conc 33 % (32-34); Mean Corpuscular Hemoglobin 28 pg (28-32); Mean Corpuscular Volume 87 fl (84-94); Platelet Count 74 K/mm3 (140-440); Red Blood Count 3.87 M/mm3 (3.65-5.03); Red Cell Distribution Width 14.5 % (13.2-15.2); White Blood Count 13.7 K/mm3 (4.5-11.0)
[2017-06-24 04:49] LABS: Anion Gap TNR mmol/L; BUN/Creatinine Ratio TNR; Blood Urea Nitrogen TNR mg/dL (9-20); Carbon Dioxide TNR mmol/L (22-30); Chloride TNR mmol/L (98-107); Glucose TNR mg/dL (75-100); Potassium TNR mmol/L (3.6-5.0); Sodium TNR mmol/L (137-145)
[2017-06-24 04:50] LABS: Calcium TNR mg/dL (8.4-10.2)
[2017-06-24 06:14] LABS: Anion Gap 18 mmol/L; BUN/Creatinine Ratio 21; Blood Urea Nitrogen 15 mg/dL (9-20); Calcium 7.3 mg/dL (8.4-10.2); Carbon Dioxide 22 mmol/L (22-30); Chloride 103.7 mmol/L (98-107); Glucose 212 mg/dL (75-100); Potassium 3.4 mmol/L (3.6-5.0); Sodium 140 mmol/L (137-145)
[2017-06-24] MEDS ORDERED: TYLENOL PO PRN (09:26)
[2017-06-24 10:09] VITALS: BP 135/89
[2017-06-24] MEDS: LOVENOX SUB-Q SCH (10:10)
[2017-06-24] MEDS ORDERED: K-DUR PO ONE (13:15)
[2017-06-24] MEDS ORDERED: D50W (25GM) Syringe IV PRN (13:18)
--- NOTE | 2017-06-24 13:25 | Progress Note ---
Assessment and Plan Assessment and plan: 42 y/o male admitted for DKA after he ran out of his insulin DKA Diabetes mellitus with hyperglycemia Medications no complaints - Patient was monitored according to DKA protocol currently he is out of DKA, anion gap is 18, bicarbonate is 22 - Patient started on sliding-scale insulin and basal insulin - Patient has leukocytosis and he is empirically on Zosyn - Diabetic education, counseling about adherence to medication Diarrhea - patient is on flagyl - If he has more diarrhea will do c.diff Leukocytosis - likely reactive - Will D/C zosyn DVT prophylaxis - Lovenox Disposition - Continue inpatient care History Interval history: Patient was seen and evaluated this morning, patient didn't have any new complaints, Patient is alert and oriented. Hospitalist Physical - Physical exam Narrative exam: Not in cardiopulmonary distress. The patient appeared well nourished and normally developed. Vital signs as documented. Head exam is unremarkable. No scleral icterus . Neck is without jugular venous distension, thyromegaly, or carotid bruits. Lungs are clear to auscultation. Cardiac exam reveals regular rate and Rhythm. First and second heart sounds normal. No murmurs, rubs or gallops. Abdominal exam reveals normal bowel sounds, no masses, no organomegaly and no aortic enlargement. Extremities are nonedematous and both femoral and pedal pulses are normal. BATTERY FILLER: Alert and oriented 3. No focal weakness. - Constitutional Vitals: Temp Pulse Resp BP Pulse Ox 98.3 F 85 18 135/89 99 06/24/17 08:45 06/24/17 09:31 06/24/17 12:00 06/24/17 10:01 06/24/17 10:01 Results - Labs CBC & Chem 7: 06/24/17 04:09 06/24/17 04:48 Labs: Laboratory Last Values WBC 13.7 K/mm3 (4.5-11.0) H 06/24/17 04:09 RBC 3.87 M/mm3 (3.65-5.03) 06/24/17 04:09 Hgb 11.0 gm/dl (11.8-15.2) L 06/24/17 04:09 Hct 33.7 % (35.5-45.6) L D 06/24/17 04:09 MCV 87 fl (84-94) 06/24/17 04:09 MCH 28 pg (28-32) 06/24/17 04:09 MCHC 33 % (32-34) 06/24/17 04:09 RDW 14.5 % (13.2-15.2) 06/24/17 04:09 Plt Count 74 K/mm3 (140-440) L 06/24/17 04:09 Lymph % (Auto) 17.9 % (13.4-35.0) 06/24/17 04:09 Monona % (Auto) 6.1 % (0.0-7.3) 06/24/17 04:09 Eos % (Auto) 0.1 % (0.0-4.3) 06/24/17 04:09 Baso % (Auto) 0.8 % (0.0-1.8) 06/24/17 04:09 Lymph # 2.4 K/mm3 (1.2-5.4) 06/24/17 04:09 Monona # 0.8 K/mm3 (0.0-0.8) 06/24/17 04:09 Eos # 0.0 K/mm3 (0.0-0.4) 06/24/17 04:09 Baso # 0.1 K/mm3 (0.0-0.1) 06/24/17 04:09 Add Manual Diff Complete 06/22/17 21:14 Total Counted 100 06/22/17 21:14 Seg Neutrophils % 75.1 % (40.0-70.0) H 06/24/17 04:09 Seg Neuts % (Manual) 92.0 % (40.0-70.0) H 06/22/17 21:14 Band Neutrophils % 0 % 06/22/17 21:14 Lymphocytes % (Manual) 5.0 % (13.4-35.0) L 06/22/17 21:14 Reactive Lymphs % (Man) 0 % 06/22/17 21:14 Monocytes % (Manual) 3.0 % (0.0-7.3) 06/22/17 21:14 Eosinophils % (Manual) 0 % (0.0-4.3) 06/22/17 21:14 Basophils % (Manual) 0 % (0.0-1.8) 06/22/17 21:14 Metamyelocytes % 0 % 06/22/17 21:14 Myelocytes % 0 % 06/22/17 21:14 Promyelocytes % 0 % 06/22/17 21:14 Blast Cells % 0 % 06/22/17 21:14 Nucleated RBC % Not Reportable 06/22/17 21:14 Seg Neutrophils # 10.3 K/mm3 (1.8-7.7) H 06/24/17 04:09 Seg Neutrophils # Man 12.9 K/mm3 (1.8-7.7) H 06/22/17 21:14 Band Neutrophils # 0.0 K/mm3 06/22/17 21:14 Lymphocytes # (Manual) 0.7 K/mm3 (1.2-5.4) L 06/22/17 21:14 Abs React Lymphs (Man) 0.0 K/mm3 06/22/17 21:14 Monocytes # (Manual) 0.4 K/mm3 (0.0-0.8) 06/22/17 21:14 Eosinophils # (Manual) 0.0 K/mm3 (0.0-0.4) 06/22/17 21:14 Basophils # (Manual) 0.0 K/mm3 (0.0-0.1) 06/22/17 21:14 Metamyelocytes # 0.0 K/mm3 06/22/17 21:14 Myelocytes # 0.0 K/mm3 06/22/17 21:14 Promyelocytes # 0.0 K/mm3 06/22/17 21:14 Blast Cells # 0.0 K/mm3 06/22/17 21:14 WBC Morphology Not Reportable 06/22/17 21:14 Hypersegmented Neuts Not Reportable 06/22/17 21:14 Hyposegmented Neuts Not Reportable 06/22/17 21:14 Hypogranular Neuts Not Reportable 06/22/17 21:14 Smudge Cells Not Reportable 06/22/17 21:14 Toxic Granulation Not Reportable 06/22/17 21:14 Toxic Vacuolation Not Reportable 06/22/17 21:14 Dohle Bodies Not Reportable 06/22/17 21:14 Pelger-Huet Anomaly Not Reportable 06/22/17 21:14 Deyanira Rods Not Reportable 06/22/17 21:14 Platelet Estimate Consistent w auto 06/22/17 21:14 Clumped Platelets Not Reportable 06/22/17 21:14 Plt Clumps, EDTA Not Reportable 06/22/17 21:14 Large Platelets Few 06/22/17 21:14 Giant Platelets Not Reportable 06/22/17 21:14 Platelet Satelliting Not Reportable 06/22/17 21:14 Plt Morphology Comment Not Reportable 06/22/17 21:14 RBC Morphology Not Reportable 06/22/17 21:14 Dimorphic RBCs Not Reportable 06/22/17 21:14 Polychromasia Not Reportable 06/22/17 21:14 Hypochromasia Not Reportable 06/22/17 21:14 Poikilocytosis Not Reportable 06/22/17 21:14 Anisocytosis Few 06/22/17 21:14 Microcytosis Not Reportable 06/22/17 21:14 Macrocytosis Not Reportable 06/22/17 21:14 Spherocytes Not Reportable 06/22/17 21:14 Pappenheimer Bodies Not Reportable 06/22/17 21:14 Sickle Cells Not Reportable 06/22/17 21:14 Target Cells Not Reportable 06/22/17 21:14 Tear Drop Cells Not Reportable 06/22/17 21:14 Ovalocytes Not Reportable 06/22/17 21:14 Helmet Cells Not Reportable 06/22/17 21:14 Hernandez-Iglesia [place] Bodies Not Reportable 06/22/17 21:14 Taiban Rings Not Reportable 06/22/17 21:14 Shawn Cells Not Reportable 06/22/17 21:14 Bite Cells Not Reportable 06/22/17 21:14 Crenated Cell Not Reportable 06/22/17 21:14 Elliptocytes Not Reportable 06/22/17 21:14 Acanthocytes (Spur) Not Reportable 06/22/17 21:14 Rouleaux Not Reportable 06/22/17 21:14 Hemoglobin C Crystals Not Reportable 06/22/17 21:14 Schistocytes Not Reportable 06/22/17 21:14 Malaria parasites Not Reportable 06/22/17 21:14 Andrei Bodies Not Reportable 06/22/17 21:14 Hem Pathologist Commnt No 06/22/17 21:14 Sodium 140 mmol/L (137-145) 06/24/17 04:48 Potassium 3.4 mmol/L (3.6-5.0) L D 06/24/17 04:48 Chloride 103.7 mmol/L (98-107) 06/24/17 04:48 Carbon Dioxide 22 mmol/L (22-30) 06/24/17 04:48 Anion Gap 18 mmol/L 06/24/17 04:48 BUN 15 mg/dL (9-20) 06/24/17 04:48 Creatinine 0.7 mg/dL (0.8-1.5) L 06/24/17 04:48 Estimated GFR > 60 ml/min 06/24/17 04:48 BUN/Creatinine Ratio 21 % 06/24/17 04:48 Glucose 212 mg/dL (75-100) H 06/24/17 04:48 POC Glucose 296 (70-105) H 06/24/17 11:18 Hemoglobin A1c 11.4 % (4-6) H 06/23/17 03:17 Ketones Quantitative Large (Negative) 06/22/17 21:14 Calcium 7.3 mg/dL (8.4-10.2) L 06/24/17 04:48 Phosphorus 3.90 mg/dL (2.5-4.5) 06/23/17 03:17 Magnesium 2.00 mg/dL (1.7-2.3) 06/23/17 03:17 Total Bilirubin TNR 06/22/17 21:14 AST TNR 06/22/17 21:14 ALT TNR 06/22/17 21:14 Alkaline Phosphatase TNR 06/22/17 21:14 NT-Pro-B Natriuret Pep 1870 pg/mL (0-450) H 06/23/17 03:08 Total Protein TNR 06/22/17 21:14 Albumin TNR 06/22/17 21:14 Albumin/Globulin Ratio TNR 06/22/17 21:14 Urine Color Straw (Yellow) 06/22/17 21:22 Urine Turbidity Clear (Clear) 06/22/17 21:22 Urine pH 5.0 (5.0-7.0) 06/22/17 21:22 Ur Specific Hermon 1.021 (1.003-1.030) 06/22/17 21:22 Urine Protein <15 mg/dl mg/dL (Negative) 06/22/17 21:22 Urine Glucose (UA) >=500 mg/dL (Negative) 06/22/17 21: Urine Ketones 80 mg/dL (Negative) 06/22/17 21: Urine Blood Sm (Negative) 06/22/17 21: Urine Nitrite Neg (Negative) 06/22/17 21:22 Urine Bilirubin Neg (Negative) 06/22/17 21: Urine Urobilinogen < 2.0 mg/dL (<2.0) 06/22/17 21: Ur Leukocyte Esterase Neg (Negative) 06/22/17 21:22 Urine WBC (Auto) < 1.0 /HPF (0.0-6.0) 06/22/17 21: Urine RBC (Auto) < 1.0 /HPF (0.0-6.0) 06/22/17 21: U Epithel Cells (Auto) < 1.0 /HPF (0-13.0) 06/22/17 21: Urine Bacteria (Auto) 1+ /HPF (Negative) 06/22/17 21: Urine Mucus Few /HPF 06/22/17 21:22
[2017-06-24] MEDS ORDERED: MYCOSTATIN TP SCH (14:00)
[2017-06-24] MEDS ORDERED: FLAGYL PO SCH (14:00)
[2017-06-24] MEDS: NACL 0.9% 1000 ML 1,000 ML IV SCH (14:13)
[2017-06-24] MEDS ORDERED: NOVOLOG SUB-Q SCH (16:30)
--- NOTE | 2017-06-25 21:33 | Discharge Summary ---
Providers - Providers Date of Admission: 06/23/17 03:07 Date of discharge: 06/24/17 Attending physician: GILBERTO BENITES MD Primary care physician: CLOUD SYSTEMS ADMINISTRATOR Hospitalization Reason for admission: DKA Condition: Stable Hospital course: 42 y/o male with past medical history significant for DM on insulin, medication non compliance and homeless presented to the ER with c/o nausea, vomiting and abdominal pain after he ran out of insulin for the last 2 days. Patient said he ran out of insulin because he doesn't have money. In the ED patient was found out to have DKA, with metabolic acidosis, dehydration and hyperglycemia. He was treated with insulin drip, IV fluids and a dose of IV antibiotics and patient was out of DKA and he was admitted to the floor. After he was admitted to the floor patient was started with SSI and basal insulin and manager social responsibility was consulted. When I evaluated him he didn't say he wants to go but later the nurse called me and told me the patient wants to go home and when i tried he just wants to go, sign AMA and left. patient was alert and oriented and he can make his own decision based on the conversation i had with him earlier. Disposition: [id number] LEFT AGAINST MED ADVICE Time spent for discharge: 31 minutes - Discharge Diagnoses (1) Metabolic acidosis Status: Acute (2) DKA, type 1 Status: Acute Qualifiers: Diabetes mellitus complication detail: with coma Qualified Code(s): E10.11 - Type 1 diabetes mellitus with ketoacidosis with coma (3) Nausea and vomiting in adult Status: Acute (4) Hyponatremia syndrome Status: Acute (5) Diabetic ketoacidosis associated with type 1 diabetes mellitus Status: Acute Qualifiers: Diabetes mellitus complication detail: without coma Qualified Code(s): E10.10 - Type 1 diabetes mellitus with ketoacidosis without coma (6) Dehydration Status: Acute Core Measure Documentation - Palliative Care Palliative Care/ Comfort Measures: Not Applicable - Core Measures Any of the following diagnoses?: none Exam - Physical Exam Narrative exam: Not in cardiopulmonary distress. The patient appeared well nourished and normally developed. Vital signs as documented. Head exam is unremarkable. No scleral icterus . Neck is without jugular venous distension, thyromegaly, or carotid bruits. Lungs are clear to auscultation. Cardiac exam reveals regular rate and Rhythm. First and second heart sounds normal. No murmurs, rubs or gallops. Abdominal exam reveals normal bowel sounds, no masses, no organomegaly and no aortic enlargement. Extremities are nonedematous and both femoral and pedal pulses are normal. SCIENCE PROFESSOR: Alert and oriented 3. No focal weakness. - Constitutional Vitals: Temp Pulse Resp BP Pulse Ox 98.3 F 85 18 135/89 99 06/24/17 08:45 06/24/17 09:31 06/24/17 12:00 06/24/17 10:01 06/24/17 10:01 Plan Activity: no restrictions Weight Bearing Status: Full Weight Bearing Diet: diabetic Follow up with: PRIMARY CAREMD [Primary Care Provider] - 3-5 Days
== END 2017-06-24 16:20 | disposition left against medical advice (07) | DRG 637 ==
LOC: ED 20:08 → CC1 06-23 03:07 → 3A 06-24 09:48
PROVIDERS: ADMIT Internal Medicine; ATTEND Internal Medicine
PROC: 02H633Z Insertion of Infusion Device into Right Atrium, Percutaneous Approach (ICD-10-PCS; principal; 2017-06-23)
DX: E10.10 Type 1 diabetes mellitus with ketoacidosis without coma (principal); G93.41 Metabolic encephalopathy; E87.1 Hypo-osmolality and hyponatremia; E86.0 Dehydration; B19.20 Unspecified viral hepatitis C without hepatic coma; F17.200 Nicotine dependence, unspecified, uncomplicated; E87.5 Hyperkalemia; D72.829 Elevated white blood cell count, unspecified; Z83.3 Family history of diabetes mellitus; Z79.4 Long term (current) use of insulin; Z59.0 Homelessness
CPT/HCPCS: 36415; 71010; 80048; 80053; 80061; 81001; 82010; 82374; 82435; 82565; 82962; 83036; 83735; 83880; 84100; 84132; 84295; 85007; 85025; 87040; 87493; J1200; J1630; J1650; J1815; J2060; J2270; J2543; J7030; J7120

== ENCOUNTER 2017-06-30 14:12 | Emergency (ER) | payer SELFPAY ==
[2017-06-30 14:20] VITALS: BP 100/60
[2017-06-30 15:00] LABS: Basophils % (Auto) 0.8 % (0.0-1.8); Eosinophils % (Auto) 0.4 % (0.0-4.3); Hemoglobin 11.1 gm/dl (11.8-15.2); Mean Corpuscular HGB Conc 33 % (32-34); Mean Corpuscular Hemoglobin 29 pg (28-32); Mean Corpuscular Volume 88 fl (84-94); Platelet Count 254 K/mm3 (140-440); Red Blood Count 3.86 M/mm3 (3.65-5.03); Red Cell Distribution Width 14.8 % (13.2-15.2); White Blood Count 7.9 K/mm3 (4.5-11.0)
[2017-06-30 15:16] LABS: Anion Gap 29 mmol/L; BUN/Creatinine Ratio 17; Blood Urea Nitrogen 17 mg/dL (9-20); Calcium 8.7 mg/dL (8.4-10.2); Carbon Dioxide 19 mmol/L (22-30); Chloride 91.4 mmol/L (98-107); Glucose 472 mg/dL (75-100); Potassium 4.7 mmol/L (3.6-5.0); Sodium 135 mmol/L (137-145)
== END 2017-06-30 23:35 | disposition left against medical advice (07) ==
LOC: ED 14:12
DX: M79.89 Other specified soft tissue disorders (principal); Z53.21 Procedure and treatment not carried out due to patient leaving prior to being seen by health care provider
CPT/HCPCS: 36415; 80048; 82805; 82962; 85025

== ENCOUNTER 2017-07-01 14:04 | Emergency (ER) | payer SELFPAY ==
--- NOTE | 2017-07-01 15:54 | Emergency Department Report ---
Chief Complaint: Extremity Problem,Nontraumatic Stated Complaint: BOTH FEET SWOLLEN Time Seen by Provider: 07/01/17 15:00 - HPI History of Present Illness: Patient he reported that he was here yesterday and had lab work done. He states that he is back today again he both his feet are swollen. He said he had similar episode. Patient said he has diabetes and he has neuropathy. He said he is on medication. Denies any shortness of breath or chest pain. Denies any history of blood clots. - ROS Review of Systems: All systems are negative unless stated in HPI above - Exam Vital Signs: Vital Signs 07/01/17 14:18 Temperature 98.3 F Pulse Rate 102 H Respiratory 16 Rate Blood Pressure 90/53 O2 Sat by Pulse 100 Oximetry Physical Exam: This is a 42-year-old male well-nourished well-developed in no acute distress. Extremity: Swelling to lower extremities, +2 pulses bilaterally. No clubbing or cyanosis. CV: S1, S2. Regular rate rhythm MSE screening note: Focused history and physical exam performed. Due to findings the following was ordered: ED Medical Decision Making - Medical Decision Making MDM: Patient screened by provider in triage area. Appropriate protocol initiated and patient to be seen in main ED by ED Disposition for MSE Condition: Stable Referrals: PRIMARY CARE, [Primary Care Provider] - 3-5 Days
[2017-07-01 16:25] LABS: Bilirubin,Urine NEG (Negative)
[2017-07-01 16:26] LABS: Blood,Urine NEG (Negative); Ketones,Urine 20 mg/dL (Negative); Leukocyte Esterase,Urine NEG (Negative); Mucus,Urine FEW /HPF; Nitrite,Urine NEG (Negative); Protein,Urine <15 mg/dL mg/dL (Negative); Urobilinogen,Urine < 2.0 mg/dL (<2.0)
[2017-07-01 17:36] LABS: Eosinophils % (Auto) 1.4 % (0.0-4.3); Mean Corpuscular HGB Conc 30 % (32-34); Mean Corpuscular Hemoglobin 28 pg (28-32); Mean Corpuscular Volume 94 fl (84-94); Platelet Count 187 K/mm3 (140-440); Red Blood Count 3.99 M/mm3 (3.65-5.03)
[2017-07-01 17:38] LABS: Hematocrit 37.7 % (35.5-45.6); Hemoglobin 11.1 gm/dl (11.8-15.2)
[2017-07-01 18:03] VITALS: BP 104/67
[2017-07-01 18:20] LABS: BUN/Creatinine Ratio 23; Blood Urea Nitrogen 25 mg/dL (9-20); Calcium 9.1 mg/dL (8.4-10.2); Carbon Dioxide 11 mmol/L (22-30); Chloride 98.1 mmol/L (98-107); Glucose 173 mg/dL (75-100); Potassium 4.3 mmol/L (3.6-5.0); Sodium 133 mmol/L (137-145)
[2017-07-01 18:22] LABS: Anion Gap 28 mmol/L
--- NOTE | 2017-07-01 18:32 | Emergency Department Report ---
HPI - General Chief Complaint: Extremity Problem,Nontraumatic Time Seen by Provider: 07/01/17 15:50 - HPI HPI: This is a 42-year-old male presents to the emergency department with complaint of a 4 day history of lower extremity swelling. The patient was here yesterday and had some labs done but left prior to being seen secondary to the weight. He has a past medical history of insulin dependent diabetes, hepatitis C. His primary care physician is Dr. Lua but he has not seen them regarding his symptoms. He denies any chest pain, fever, shortness of breath, nausea, vomiting. He has not taken anything for symptoms prior presentation. He says he has been compliant with his diabetes medications. No recent travel or sick contacts at home. ED Past Medical Hx - Past Medical History Hx Hypertension: No Hx Heart Attack/AMI: No Hx Congestive Heart Failure: No Hx Diabetes: Yes (IDDM) Hx Deep Vein Thrombosis: No Hx Pulmonary Embolism: No Hx GERD: No Hx Liver Disease: Yes (Hepatitis C) Hx Renal Disease: No Hx Arthritis: No Hx Kidney Stones: No Hx Asthma: No Hx COPD: No Hx Tuberculosis: No Hx HIV: No Additional medical history: Hepatitis C - Surgical History Past Surgical History?: Yes Hx Coronary Stent: No Hx Open Heart Surgery: No Hx Pacemaker: No Hx Internal Defibrillator: No Hx Cholecystectomy: No Hx Appendectomy: No Hx Breast Surgery: No Additional Surgical History: Tonsillectomy - Social History Smoking Status: Current Every Day Smoker Substance Use Type: None - Medications Home Medications: Home Medications Medication Instructions Recorded Confirmed Last Taken Type Insulin Lispro [Humalog 100 10 units SQ TIDAC #30 insuln.pen 06/01/17 06/22/17 Unknown Rx UNITS/ML Kwikpen] Lantus Solostar 15 units SQ HS #30 06/01/17 06/22/17 Unknown Rx Metoclopramide [Reglan] 10 mg PO TID #90 tab 06/01/17 06/22/17 Unknown Rx Xanax TAB 0.5 mg PO BID #30 06/01/17 06/22/17 Unknown Rx ED Review of Systems ROS: Stated complaint: BOTH FEET SWOLLEN Other details as noted in HPI Comment: All other systems reviewed and negative Constitutional: denies: chills, fever Eyes: denies: eye pain, eye discharge, vision change ENT: denies: ear pain, throat pain Respiratory: denies: cough, shortness of breath, wheezing Cardiovascular: edema. denies: chest pain Gastrointestinal: denies: abdominal pain, nausea, diarrhea Genitourinary: denies: urgency, dysuria Musculoskeletal: denies: back pain, joint swelling, arthralgia Skin: denies: rash, lesions Neurological: denies: headache, weakness, paresthesias Physical Exam - Physical Exam Vital Signs: Vital Signs 07/01/17 07/01/17 14:18 18:02 Temperature 98.3 F 98.3 F Pulse Rate 102 H 82 Respiratory 16 14 Rate Blood Pressure 90/53 Blood Pressure 104/67 [Left] O2 Sat by Pulse 100 100 Oximetry Physical Exam: GENERAL: The patient is well-developed well-nourished. HENT: Normocephalic. Atraumatic. Patient has moist mucous membranes. EYES: Extraocular motions are intact. Pupils equal reactive to light bilaterally. NECK: Supple. Trachea is midline. CHEST/LUNGS: Clear to auscultation. There is no respiratory distress noted. HEART/CARDIOVASCULAR: Regular. There is no tachycardia. There is no gallop rub or murmur. ABDOMEN: Abdomen is soft, nontender. Patient has normal bowel sounds. There is no abdominal distention. SKIN: There is some nonpitting swelling of the bilateral lower extremities from the knees distally. NEURO: The patient is awake, alert, and oriented. The patient is cooperative. The patient has no focal neurologic deficits. The patient has normal speech. MUSCULOSKELETAL: There is no tenderness or deformity. There is no limitation range of motion. There is no evidence of acute injury. ED Course Vital Signs 07/01/17 07/01/17 14:18 18:02 Temperature 98.3 F 98.3 F Pulse Rate 102 H 82 Respiratory 16 14 Rate Blood Pressure 90/53 Blood Pressure 104/67 [Left] O2 Sat by Pulse 100 100 Oximetry ED Medical Decision Making - Lab Data Result diagrams: 07/01/17 16:53 07/01/17 16:53 - Radiology Data Radiology results: report reviewed, image reviewed interpreted by me: Chest x-ray does not show any acute process. There are no pleural effusions, obvious pneumonia and there is no pneumothorax. Bilateral lower extremity venous Doppler is negative for DVT. - Medical Decision Making 42-year-old male with history of diabetes presents with a complaint of lower extremity swelling. He has no history of CHF. Lung sounds are clear. Chest x- ray does not show any pleural effusions or signs of pneumonia. He had bilateral lower extremity venous Dopplers were negative for DVT. He does have some abnormal labs however. Despite the fact that he has uncontrolled blood sugar, he has an elevated anion gap with metabolic acidosis, lactic acidosis, decreased bicarbonate level of 11. The patient appears to need some rehydration but also has lower extremity edema and a BNP of about 1300. 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 He understands that he could have worsening of his symptoms and lab values and this could lead to shortness of breath, altered mental status, coma, . He understands and still says that he cannot stay in despite the risks and will sign out AMA. He will try and follow up with his primary care physician tomorrow and will return to the ER if he changes his mind with any distress. - Differential Diagnosis DKA, dehydration, CHF, venous stasis Critical Care Time: No Critical care attestation.: If time is entered above; I have spent that time in minutes in the direct care of this critically ill patient, excluding procedure time. ED Disposition Clinical Impression: Dehydration, Metabolic acidosis, High anion gap metabolic acidosis, Lactic acidosis, Lower extremity edema Disposition: LEFT AGAINST MED ADVICE Is pt being admited?: No Condition: Stable Additional Instructions: Please follow up tomorrow with Dr. Lua without fail. Return to the emergency department if you change your mind regarding further evaluation and admission. Referrals: PRINCESS JIANG MD [Primary Care Provider] - 3-5 Days SERGIO LUA MD [Staff Physician] - 3-5 Days Forms: AMA Form Time of Disposition: 20:23
--- NOTE | 2017-07-02 07:15 | XRay Report ---
CHEST 2 VIEWS INDICATION: Lower extremity swelling. COMPARISON: 06/22/2017. FINDINGS: PA and lateral chest radiographs demonstrate normal cardiomediastinal silhouette. Clear lungs. Intact bones. Interval right IJ catheter removal. CONCLUSION: No acute disease in the chest. Thank you for the opportunity to participate in this patient's care.
--- NOTE | 2017-07-02 14:16 | Vascular Lab Report ---
LOWER EXTREMITY VENOUS DUPLEX: REASON FOR EXAM: Swelling of the lower extremities. COMMENTS ON THE RIGHT: All veins visualized are freely compressible without evidence of internal echogenicity. Flow is spontaneous and phasic throughout. COMMENTS ON THE LEFT: All veins visualized are freely compressible without evidence of internal echogenicity. Flow is spontaneous and phasic throughout. IMPRESSION: No evidence of acute or chronic deep venous thrombosis in either lower extremity.
== END 2017-07-01 20:35 | disposition left against medical advice (07) ==
LOC: ED 14:04
DX: E87.2 Acidosis (principal); E86.0 Dehydration; M79.89 Other specified soft tissue disorders; E11.9 Type 2 diabetes mellitus without complications; F17.200 Nicotine dependence, unspecified, uncomplicated; Z79.4 Long term (current) use of insulin
CPT/HCPCS: 36415; 71020; 80048; 81001; 82140; 82805; 82962; 83880; 85025; 93970; 99284; G0480; 80320

== ENCOUNTER 2017-07-04 11:04 | Inpatient (IN) | payer OTHER ==
[~2017-07-04 11:04] MED LIST: KETALAR ONE; ZEMURON IV ONE
[2017-07-04] MEDS ORDERED: ARTIFICIAL TEARS OPHTH OINT OU PRN (11:19)
[2017-07-04] MEDS ORDERED: ROCEPHIN/NS 1 GM/50 ML 1 GM/50 ML BAG IV ONE (11:19)
[2017-07-04] MEDS ORDERED: VASELINE LIP THERAPY TP PRN (11:19)
[2017-07-04] MEDS ORDERED: NACL 0.9% 1000 ML 1,000 ML IV ONE (11:19)
[2017-07-04] MEDS ORDERED: NACL 0.9% 1000 ML 2,000 ML IV ONE (11:19)
--- NOTE | 2017-07-04 11:23 | Emergency Department Report ---
ED General Adult HPI - General Chief complaint: Altered Mental Status Stated complaint: UNRESPONSIVE Time Seen by Provider: 07/04/17 11:17 Source: EMS (ems notes not available at time of chart dictation), RN notes reviewed, old records reviewed Mode of arrival: Stretcher Limitations: Altered Mental Status, Other - History of Present Illness Initial comments: This is a 42-year-old male, previously unknown to this provider. Patient has a past medical history of type 1 diabetes, diabetic ketoacidosis, IV drug abuse. Patient brought to the hospital by EMS for altered mental status. Patient found unresponsive in a local hotel, for uncertain duration of time, uncertain mechanism, with evidence of drug paraphernalia. As per verbal report from EMS, patient initially hypotensive, hypothermic, hyperglycemic, and hypoxic in the field. EMS further reported that they gave 2 mg of Narcan in the field, which somewhat improved the patient's mental status obtundation. Upon arrival to the ER, the patient was altered, combative, pulling at his leads, monitor, trying to get out of the stretcher, trying to pull out his IV. Patient was clearly a danger to himself and other patients, given hypothermia, metabolic derangement, vital signs derangement, uncertain etiology of altered mental status, patient intubated using cervical spine immobilization by myself with one attempt with no difficulty or complications. Patient was found to be hyperglycemic, glucose of greater than 500, hypothermic with a core rectal temperature of 93, with blood pressure in the low 100s. Patient started empirically on the sepsis pathway, as well as the DKA pathway. Case is discussed with critical care physician, Dr. Martel, who authorizes placement into the intensive care unit. -: unknown Quality: other (patient intubated, unable to describe exacerbating or relieving factors, or qualitative descriptors) Consistency: other (patient intubated, unable to describe exacerbating or relieving factors, or qualitative descriptors) Improves with: other (patient intubated, unable to describe exacerbating or relieving factors, or qualitative descriptors) Worsens with: other (patient intubated, unable to describe exacerbating or relieving factors, or qualitative descriptors) Associated Symptoms: confusion, other (per hpi) - Related Data Previous Rx's Medication Instructions Recorded Last Taken Type Insulin Lispro [Humalog 100 10 units SQ TIDAC #30 insuln.pen 06/01/17 Unknown Rx UNITS/ML Kwikpen] Lantus Solostar 15 units SQ HS #30 06/01/17 Unknown Rx Metoclopramide [Reglan] 10 mg PO TID #90 tab 06/01/17 Unknown Rx Xanax TAB 0.5 mg PO BID #30 06/01/17 Unknown Rx Allergies Allergy/AdvReac Type Severity Reaction Status Date / Time No Known Allergies Allergy Verified 06/30/17 14:18 ED Review of Systems ROS: Stated complaint: UNRESPONSIVE Other details as noted in HPI Comment: Unobtainable due to pts medical conditions ED Past Medical Hx - Past Medical History Previous Medical History?: Yes Hx Hypertension: No Hx Heart Attack/AMI: No Hx Congestive Heart Failure: No Hx Diabetes: Yes (IDDM) Hx Deep Vein Thrombosis: No Hx Pulmonary Embolism: No Hx GERD: No Hx Liver Disease: Yes (Hepatitis C) Hx Renal Disease: No Hx Arthritis: No Hx Kidney Stones: No Hx Asthma: No Hx COPD: No Hx Tuberculosis: No Hx HIV: No Additional medical history: Hepatitis C - Surgical History Hx Coronary Stent: No Hx Open Heart Surgery: No Hx Pacemaker: No Hx Internal Defibrillator: No Hx Cholecystectomy: No Hx Appendectomy: No Hx Breast Surgery: No Additional Surgical History: Tonsillectomy - Social History Smoking Status: Current Every Day Smoker Substance Use Type: Heroin - Medications Home Medications: Home Medications Medication Instructions Recorded Confirmed Last Taken Type Insulin Lispro [Humalog 100 10 units SQ TIDAC #30 insuln.pen 06/01/17 06/22/17 Unknown Rx UNITS/ML Kwikpen] Lantus Solostar 15 units SQ HS #30 06/01/17 06/22/17 Unknown Rx Metoclopramide [Reglan] 10 mg PO TID #90 tab 06/01/17 06/22/17 Unknown Rx Xanax TAB 0.5 mg PO BID #30 06/01/17 06/22/17 Unknown Rx ED Physical Exam - General Limitations: Altered Mental Status General appearance: lethargic, in distress, other (patient making grunting sounds prior to intubation) - Eye Eye exam: Present: PERRL, EOMI - ENT ENT exam: Present: mucous membranes dry - Neck Neck exam: Present: normal inspection, full ROM - Respiratory Respiratory exam: Present: normal lung sounds bilaterally. Absent: respiratory distress, wheezes, rales, rhonchi, stridor - Cardiovascular Cardiovascular Exam: Present: normal rhythm, tachycardia, normal heart sounds - GI/Abdominal GI/Abdominal exam: Present: soft, normal bowel sounds. Absent: distended, tenderness, guarding, rebound, rigid, pulsatile mass - Rectal Rectal exam: Present: normal inspection - exam: Present: normal inspection - Extremities Exam Extremities exam: Present: normal inspection, other (patient moving 4 extremities prior to intubation). Absent: calf tenderness - Back Exam Back exam: Present: normal inspection. Absent: paraspinal tenderness - Neurological Exam Neurological exam: Present: altered - Psychiatric Psychiatric exam: Present: agitated, anxious - Skin Skin exam: Present: dry ED Course Vital Signs 07/04/17 07/04/17 07/04/17 11:10 11:19 12:17 Temperature 93.3 F L Pulse Rate 100 H 104 H 100 H Respiratory 16 Rate Blood Pressure 132/77 Blood Pressure 115/62 [Right] O2 Sat by Pulse 100 100 Oximetry 07/04/17 07/04/17 07/04/17 12:22 12:30 12:45 Temperature Pulse Rate 99 H 103 H Respiratory 16 16 16 Rate Blood Pressure 109/50 112/48 Blood Pressure [Right] O2 Sat by Pulse 100 Oximetry 07/04/17 07/04/17 13:00 13:15 Temperature Pulse Rate 104 H 105 H Respiratory 16 Rate Blood Pressure 98/41 98/41 Blood Pressure [Right] O2 Sat by Pulse 100 Oximetry - Reevaluation(s) Reevaluation #1: 07/04/17 12:21 Laboratory studies demonstrate hyperosmolar state, profound acidosis, lactic acidosis, hyperglycemia, anion gap 44, patient will be started on aggressive IV fluids, broad-spectrum antibiotics, insulin drip, active patient warming. Reevaluation #2: 07/04/17 12:54 Dr Newberry accepts patient to medical service Reevaluation #3: 07/04/17 13:46 Patient difficult IV access. Patient has 3 IVs, has multiple drips, and will require a mid/picc line Will sign administrative consent for PICC line in conjunction with the Hospital physician, as no family can be reached to give informed consent. Given multiple metabolic derangements as well as underlying critical illness, benefits outweigh risks. Reevaluation #4: 07/04/17 13:57 Cervica collar may be discontinued; CT of the brain and cervical spine negative - EJ/Peripheral Line Neck L Time Out Performed: Yes Indications: multiple IV sites needed Skin Cleansed in Sterile Fashion: Yes Size: 18 Dressing Placed: Tegaderm Patient Tolerated Procedure: well - Intubation Time Out Performed: Yes Sedative: Ketamine Mg Given: 150 Paralytic: Rocuronium Mg Given: 100 Laryngoscope: Nila Size: 3 ET Tube Size: 7.5 Tube Secured Depth (cm): 23 Tube Secured Location: teeth Tube Placement Confirmation: visualized tube passing t, equal breath sounds bilat, no breath sounds over epi, confirmation by capnometr Patient Tolerated Procedure: well Intubation Complications: none ED Medical Decision Making - Lab Data Result diagrams: 07/04/17 12:45 07/04/17 12:45 Vital Signs 07/04/17 11:19 Pulse Rate 104 H Blood Pressure 132/77 O2 Sat by Pulse 100 Oximetry Lab Results 07/04/17 07/04/17 07/04/17 Range/Units 11:16 11:25 11:25 PT (12.2-14.9) Sec. INR (0.87-1.13) APTT (24.2-36.6) Sec. VBG pH (7.320-7.420) Sodium 129 L (137-145) mmol/L Potassium 5.0 (3.6-5.0) mmol/L Chloride 87.1 L (98-107) mmol/L Carbon Dioxide 3 L* D (22-30) mmol/L Anion Gap 44 mmol/L BUN 32 H (9-20) mg/dL Creatinine 1.5 (0.8-1.5) mg/dL Estimated GFR 52 ml/min BUN/Creatinine Ratio 21 % Glucose 1188 H* (75-100) mg/dL POC Glucose > 500 H (70-105) Lactic Acid 5.10 H* (0.7-2.0) mmol/L Calcium 8.0 L (8.4-10.2) mg/dL Magnesium 2.30 (1.7-2.3) mg/dL Total Bilirubin < 0.20 (0.1-1.2) mg/dL AST 50 H (5-40) units/L ALT 69 H (7-56) units/L Alkaline Phosphatase 266 H (35-129) units/L Total Protein 6.4 (6.3-8.2) g/dL Albumin 3.2 L (3.9-5) g/dL Albumin/Globulin Ratio 1.0 % TSH (0.270-4.200) mlU/mL Salicylates (2.8-20.0) mg/dL Acetaminophen (10.0-30.0) ug/mL Plasma/Serum Alcohol (0-0.07) gm% 07/04/17 07/04/17 07/04/17 Range/Units 11:25 11:25 11:25 PT (12.2-14.9) Sec. INR (0.87-1.13) APTT (24.2-36.6) Sec. VBG pH (7.320-7.420) Sodium (137-145) mmol/L Potassium (3.6-5.0) mmol/L Chloride (98-107) mmol/L Carbon Dioxide (22-30) mmol/L Anion Gap mmol/L BUN (9-20) mg/dL Creatinine (0.8-1.5) mg/dL Estimated GFR ml/min BUN/Creatinine Ratio % Glucose (75-100) mg/dL POC Glucose (70-105) Lactic Acid (0.7-2.0) mmol/L Calcium (8.4-10.2) mg/dL Magnesium (1.7-2.3) mg/dL Total Bilirubin (0.1-1.2) mg/dL AST (5-40) units/L ALT (7-56) units/L Alkaline Phosphatase (35-129) units/L Total Protein (6.3-8.2) g/dL Albumin (3.9-5) g/dL Albumin/Globulin Ratio % TSH 1.810 (0.270-4.200) mlU/mL Salicylates < 0.3 L (2.8-20.0) mg/dL Acetaminophen < 15.0 (10.0-30.0) ug/mL Plasma/Serum Alcohol (0-0.07) gm% 07/04/17 07/04/17 07/04/17 Range/Units 11:25 11:25 11:31 PT 16.3 H (12.2-14.9) Sec. INR 1.25 H (0.87-1.13) APTT 25.3 (24.2-36.6) Sec. VBG pH 6.816 L* (7.320-7.420) Sodium (137-145) mmol/L Potassium (3.6-5.0) mmol/L Chloride (98-107) mmol/L Carbon Dioxide (22-30) mmol/L Anion Gap mmol/L BUN (9-20) mg/dL Creatinine (0.8-1.5) mg/dL Estimated GFR ml/min BUN/Creatinine Ratio % Glucose (75-100) mg/dL POC Glucose (70-105) Lactic Acid (0.7-2.0) mmol/L Calcium (8.4-10.2) mg/dL Magnesium (1.7-2.3) mg/dL Total Bilirubin (0.1-1.2) mg/dL AST (5-40) units/L ALT (7-56) units/L Alkaline Phosphatase (35-129) units/L Total Protein (6.3-8.2) g/dL Albumin (3.9-5) g/dL Albumin/Globulin Ratio % TSH (0.270-4.200) mlU/mL Salicylates (2.8-20.0) mg/dL Acetaminophen (10.0-30.0) ug/mL Plasma/Serum Alcohol < 0.01 (0-0.07) gm% - EKG Data -: EKG Interpreted by [place] - EKG Data 07/04/17 12:21 Sinus tachycardia, 104 bpm, QTC prolonged at 470 ms, poor R wave progression, abnormal EKG, borderline left axis deviation, not consistent with STEMI, unchanged from prior. - Radiology Data Radiology results: report reviewed, image reviewed X-ray the chest is negative. Endotracheal tube is in the appropriate position. Critical Care Time: Yes Critical care time in (mins) excluding proc time.: 60 Critical care attestation.: If time is entered above; I have spent that time in minutes in the direct care of this critically ill patient, excluding procedure time. ED Disposition Clinical Impression: Altered mental status, Metabolic encephalopathy Disposition: OP ADMIT IP TO THIS HOSP Is pt being admited?: Yes Condition: Critical Referrals: PRIMARY CARE, [Primary Care Provider] - 3-5 Days
[2017-07-04] MEDS: fentaNYL DRIP Premix 2,000 MCG/100 ML BAG IV SCH (11:45)
--- NOTE | 2017-07-04 11:52 | XRay Report ---
Single view chest: History: ET tube placement. Findings: Normal cardiomediastinal silhouette. Trachea is midline. Tip of endotracheal tube in normal position. No consolidation, pneumothorax or pleural effusion. Impression: No acute cardiopulmonary findings.
[2017-07-04] MEDS ORDERED: NACL 0.9% 500 ML IV SCH (12:00)
[2017-07-04] MEDS ORDERED: DIPRIVAN 10 MG/ML 1,000 MG/100 ML BOTTLE IV SCH (12:00)
[2017-07-04 12:01] LABS: Alanine Aminotransferase 69 units/L (7-56); Albumin 3.2 g/dL (3.9-5); Alkaline Phosphatase 266 units/L (35-129); BUN/Creatinine Ratio 21; Bilirubin,Total < 0.20 mg/dL (0.1-1.2); Blood Urea Nitrogen 32 mg/dL (9-20); Chloride 87.1 mmol/L (98-107); Sodium 129 mmol/L (137-145); Total Protein 6.4 g/dL (6.3-8.2)
[2017-07-04 12:10] LABS: INR 1.25 (0.87-1.13); Partial Thromboplastin Time 25.3 Sec. (24.2-36.6)
[2017-07-04] MEDS ORDERED: D50W (25GM) Syringe IV PRN (12:11)
[2017-07-04 12:14] LABS: Anion Gap 44 mmol/L; Carbon Dioxide 3 mmol/L (22-30); Glucose 1188 mg/dL (75-100)
[2017-07-04] MEDS ORDERED: SODIUM BICARBONATE 50 MEQ in NACL 0.9% 1000 ML 1,000 ML IV ONE (12:20)
[2017-07-04] MEDS ORDERED: SODIUM BICARBONATE IV ONE ×2 (12:20→12:41)
--- NOTE | 2017-07-04 12:36 | History and Physical Report ---
History of Present Illness Chief complaint: found down, and unresponsive History of present illness: 42 YO Male with DM, HCV, Nicotine Dependence, IVDA presents to ED for evaluation. Patient found down and unresponsive in a local hotel with evidence of drug paraphernalia near him. Pt unable to provide history. History taken from EMS. EMS was notified, and upon arrival patient was found to be stuporous, hypotensive, hypothermic, hyperglycemic, and hypoxic in the field. Pt was trated with 2 mg of Narcan , with mild improvement in neurologic status. Upon arrival to the ER, the patient was foud to be in DKA with severe metabolic acidosis, encephalopathic, and evidence of Sepsis. Pt intubated for airway protection, and initiated on sepsis protocol as well as DKA protocol and transferred to ICU. Past History Past Medical History: diabetes, hepatitis, other (Nicotine Dependence, IVDA,) Past Surgical History: tonsillectomy Social history: , IV drug use Family history: diabetes, hypertension Medications and Allergies Allergies Allergy/AdvReac Type Severity Reaction Status Date / Time No Known Allergies Allergy Verified 06/30/17 14:18 Home Medications Medication Instructions Recorded Confirmed Last Taken Type Insulin Lispro [Humalog 100 10 units SQ TIDAC #30 insuln.pen 06/01/17 06/22/17 Unknown Rx UNITS/ML Kwikpen] Lantus Solostar 15 units SQ HS #30 06/01/17 06/22/17 Unknown Rx Metoclopramide [Reglan] 10 mg PO TID #90 tab 06/01/17 06/22/17 Unknown Rx Xanax TAB 0.5 mg PO BID #30 06/01/17 06/22/17 Unknown Rx Active Meds: Active Medications Dextrose (D50w (25gm) Syringe) 0 ml IV PRN PRN PRN Reason: Hypoglycemia Hydrophilic Ointment (Vaseline Lip Therapy) 1 applic TP Q2HR PRN PRN Reason: Dry Lips Fentanyl Citrate (Fentanyl Drip Premix) 2,000 mcg in 100 mls @ 3.402 mls/hr IV TITR SHELIA; 1 MCG/KG/HR PRN Reason: Protocol Last Admin: 07/04/17 11:45 Dose: 1 mcg/kg/hr, 3.402 mls/hr Propofol (Diprivan 10 Mg/Ml) 1,000 mg in 100 mls @ 2.041 mls/hr IV TITR SHELIA; 5 MCG/KG/MIN PRN Reason: Protocol Last Admin: 07/04/17 11:56 Dose: 5 mcg/kg/min, 2.041 mls/hr Potassium Chloride/Dextrose/Sod Cl (D5w/0.45% Nacl/Kcl 20 Meq) 20 meq in 1,000 mls @ 125 mls/hr IV DIRECT SHELIA Insulin Human Regular 100 (units/ Sodium Chloride) 100 mls @ 1 mls/hr IV TITR SHELIA; 1 UNITS/HR PRN Reason: Protocol Sodium Bicarbonate 50 meq/ (Sodium Chloride) 1,050 mls @ 100 mls/hr IV ONCE.ED ONE Stop: 07/04/17 22:49 Multi-Ingred Cream/Lotion/Oil/Oint (Artificial Tears Ophth Oint) 1 applic OU Q4HR PRN PRN Reason: Dry Eye(s) Sodium Chloride (Nacl 0.9% 500 Ml) 1 ml IV DIRECT SHELIA Sodium Chloride (Sodium Chloride Flush Syringe 10 Ml) 10 ml IV PRN NR Stop: 07/04/17 13:01 Review of Systems ROS unobtainable: due to mental status Exam - Constitutional Vitals: Temp Pulse Resp BP Pulse Ox 93.3 F L 104 H 16 132/77 100 07/04/17 11:10 07/04/17 11:19 07/04/17 12:22 07/04/17 11:19 07/04/17 12:22 General appearance: Present: severe distress - Neck Neck: Present: supple, normal ROM - Respiratory Respiratory effort: normal Respiratory: bilateral: CTA - Cardiovascular Heart Sounds: Present: S1 & S2. Absent: rub, click - Extremities Extremities: pulses symmetrical, No edema Peripheral Pulses: abnormal (Capillary Refill: 4 seconds) - Abdominal General gastrointestinal: Present: soft, non-tender, non-distended, normal bowel sounds Male genitourinary: Present: normal - Integumentary Integumentary: Present: clear, dry, clammy, decreased turgor - Musculoskeletal Musculoskeletal: generalized weakness - Psychiatric Psychiatric: no intact judgment & insight, no memory intact - Neurologic Neurologic: no gait normal Results - Labs CBC & Chem 7: 07/04/17 12:45 07/04/17 14:28 Labs: Abnormal lab results 07/04/17 07/04/17 07/04/17 Range/Units 11:16 11:25 11:25 PT (12.2-14.9) Sec. INR (0.87-1.13) VBG pH (7.320-7.420) Sodium 129 L (137-145) mmol/L Chloride 87.1 L (98-107) mmol/L Carbon Dioxide 3 L* D (22-30) mmol/L BUN 32 H (9-20) mg/dL Glucose 1188 H* (75-100) mg/dL POC Glucose > 500 H (70-105) Lactic Acid 5.10 H* (0.7-2.0) mmol/L Calcium 8.0 L (8.4-10.2) mg/dL AST 50 H (5-40) units/L ALT 69 H (7-56) units/L Alkaline Phosphatase 266 H (35-129) units/L Albumin 3.2 L (3.9-5) g/dL Salicylates (2.8-20.0) mg/dL 07/04/17 07/04/17 07/04/17 Range/Units 11:25 11:25 11:31 PT 16.3 H (12.2-14.9) Sec. INR 1.25 H (0.87-1.13) VBG pH 6.816 L* (7.320-7.420) Sodium (137-145) mmol/L Chloride (98-107) mmol/L Carbon Dioxide (22-30) mmol/L BUN (9-20) mg/dL Glucose (75-100) mg/dL POC Glucose (70-105) Lactic Acid (0.7-2.0) mmol/L Calcium (8.4-10.2) mg/dL AST (5-40) units/L ALT (7-56) units/L Alkaline Phosphatase (35-129) units/L Albumin (3.9-5) g/dL Salicylates < 0.3 L (2.8-20.0) mg/dL Assessment and Plan - Patient Problems (1) Sepsis Current Visit: Yes Status: Acute Qualifiers: Sepsis type: S Plan to address problem: Sepsis protocol: Empiric ABX, IVF, monitor uop q shift, serial lactic acid, blood cultures, urinalysis, repeat cbc The high probability of a clinically significant, sudden or life threatening deterioration of the [cardiac, pulmonary, endocrine] system(s) required my full and direct attention, intervention and personal management. The aggregate critical care time was [65] minutes. This time is in addition to time spent performing reported procedures but includes the following: [x] Data Review and interpretation [x] Patient assessment and monitoring of vital signs [x] Documentation [x] Medication orders and management (2) DKA (diabetic ketoacidoses) Current Visit: Yes Status: Acute Qualifiers: Diabetes mellitus type: D Diabetes mellitus complication detail: D Plan to address problem: DKA protocol, insulin drip, serial bmp to monitor anion gap, IVF resuscitation. (3) Metabolic acidosis Current Visit: Yes Status: Acute Plan to address problem: Treat sepsis, and DKA, repeat bmp, If no improvement with supportive care, will continue bicarbonate supplementation. (4) Acute respiratory failure Current Visit: Yes Status: Acute Qualifiers: Respiratory failure complication: R Plan to address problem: Supplemental oxygen, nebs, wean vent as tolerated, daily SBT, ABG in AM, pulmonary consulted, wean vent as tolerated, (5) DVT prophylaxis Current Visit: Yes Status: Acute
[2017-07-04] MEDS ORDERED: ALUM-MAG HYDROX-SIMETH 200-200-20MG/5ML PO PRN (12:40)
[2017-07-04] MEDS ORDERED: DULCOLAX PR PRN (12:40)
[2017-07-04] MEDS ORDERED: MILK OF MAGNESIA PO PRN (12:40)
[2017-07-04] MEDS ORDERED: NACL 0.9% 1000 ML IV ONE (12:40)
[2017-07-04] MEDS ORDERED: VANCOMYCIN VIAL IV ONE (12:40)
[2017-07-04 12:45] LABS: Urine Drugs of Abuse Note Disclamer
[2017-07-04] MEDS ORDERED: NovoLIN R 100 UNITS in NACL 0.9% 99 ML IV SCH (13:00)
[2017-07-04] MEDS ORDERED: SODIUM CHLORIDE FLUSH SYRINGE 10 ML IV NR (13:00)
[2017-07-04] MEDS ORDERED: VANCOMYCIN PHARMACY TO DOSE IV SCH (13:00)
[2017-07-04 13:02] LABS: Bacteria,Urine 1+ /HPF (Negative); Bilirubin,Urine NEG (Negative); Blood,Urine SM (Negative); Ketones,Urine 20 mg/dL (Negative); Leukocyte Esterase,Urine NEG (Negative); Mucus,Urine FEW /HPF; Nitrite,Urine NEG (Negative); Protein,Urine <15 mg/dL mg/dL (Negative); Urobilinogen,Urine < 2.0 mg/dL (<2.0)
[2017-07-04] MEDS ORDERED: VANCOMYCIN 1,250 MG in NACL 0.9% 250ML 250 ML IV SCH (13:15)
[2017-07-04 13:18] LABS: Mean Corpuscular HGB Conc 26 % (32-34); Mean Corpuscular Hemoglobin 28 pg (28-32); Mean Corpuscular Volume 108 fl (84-94); Platelet Count 296 K/mm3 (140-440); Red Blood Count 3.48 M/mm3 (3.65-5.03); Red Cell Distribution Width 16.3 % (13.2-15.2)
[2017-07-04 13:19] LABS: Hemoglobin 9.9 gm/dl (11.8-15.2); White Blood Count 21.3 K/mm3 (4.5-11.0)
[2017-07-04 13:20] LABS: Hematocrit 37.7 % (35.5-45.6)
[2017-07-04 13:37] LABS: Calcium 7.3 mg/dL (8.4-10.2); Chloride 90.9 mmol/L (98-107); Potassium 4.7 mmol/L (3.6-5.0)
[2017-07-04 13:38] LABS: Magnesium 2.2 mg/dL (1.7-2.3); Phosphorous 8.6 mg/dL (2.5-4.5)
[2017-07-04 13:50] LABS: Anisocytosis 2+; Basophils % (Manual) 0 % (0.0-1.8); Blastocytes % (Manual) 0 %; Diff Status Complete; Eosinophils % (Manual) 0 % (0.0-4.3); Macrocytosis 2+
--- NOTE | 2017-07-04 13:50 | Cat Scan Report ---
Cranial CT without contrast. History: Altered mental status. Findings: There is no evidence of acute hemorrhage or infarct. The posterior fossa is normal. The ventricles are normal in size and contour. There are no masses or extra-axial collections. There is mild prominence of the cortical sulci. The calvarium is intact. Impression: No acute findings.
--- NOTE | 2017-07-04 13:51 | Cat Scan Report ---
CT of the cervical spine including axial images, reformatted sagittal and coronal images. History: Neck pain after trauma. Findings: There is no evidence of fracture or subluxation. The odontoid is intact. There is no prevertebral soft tissue edema. The posterior elements are normal. Impression: No acute findings.
[2017-07-04] MEDS: REGLAN PO SCH (14:26)
[2017-07-04] MEDS ORDERED: ZOSYN/NS 4.5GM/100ML 4.5 GM/100 ML VIAL IV ONE (14:30)
--- NOTE | 2017-07-04 14:36 | XRay Report ---
Single view chest: History: Post PICC line placement. Findings: Normal cardiomediastinal silhouette. Trachea is midline. Tip of endotracheal tube in normal position. Tip of left PICC line in right atrium. No consolidation pleural effusion or pneumothorax. Impression: Tip of left PICC line in right atrium.
[2017-07-04 14:50] LABS: ISTAT Base Excess -28; ISTAT HCO3 7.4; ISTAT PCO2 53.9 (35-45); ISTAT PH 6.743 (7.35-7.45); ISTAT PO2 259 (80-105); ISTAT SO2 99; ISTAT TCO2 9
[2017-07-04 15:12] LABS: Calcium 6.8 mg/dL (8.4-10.2); Chloride 94.5 mmol/L (98-107); Potassium 5.3 mmol/L (3.6-5.0)
--- NOTE | 2017-07-04 16:04 | XRay Report ---
Single view chest: Compared to 07/04/17. History: Post PICC line. Findings: Normal cardiomediastinal silhouette. Tip of left PICC line in mid superior vena cava. No pneumothorax of pleural effusion or consolidation. Tip of endotracheal tube in normal position. Impression: Tip of left PICC line in MID superior vena cava.
[2017-07-04 16:21] LABS: Calcium 6.7 mg/dL (8.4-10.2); Chloride 93.2 mmol/L (98-107); Potassium 5.2 mmol/L (3.6-5.0)
[2017-07-04] MEDS: ZOSYN/NS 4.5GM/100ML 4.5 GM/100 ML VIAL IV SCH ×2 (16:33→23:24)
[2017-07-04] MEDS ORDERED: D5/0.45NS 1,000 ML IV SCH (18:00)
[2017-07-04 18:46] LABS: Calcium 6.1 mg/dL (8.4-10.2); Chloride 97.1 mmol/L (98-107); Potassium 3.5 mmol/L (3.6-5.0)
[2017-07-04] MEDS ORDERED: NACL 0.9% 1000 ML 1,000 ML ONE (19:22)
[2017-07-04] MEDS: D5W/0.45% NACL/KCL 20 MEQ 20 MEQ/1,000 ML BAG IV SCH (19:36)
[2017-07-04 20:36] LABS: Calcium 6.5 mg/dL (8.4-10.2); Chloride 102.5 mmol/L (98-107); Potassium 3.3 mmol/L (3.6-5.0)
[2017-07-04] MEDS ORDERED: NACL 0.9% 1000 ML 2,000 ML ONE (21:12)
[2017-07-04] MEDS ORDERED: XANAX 0.5 MG PO SCH (22:00)
[2017-07-05] MEDS ORDERED: NACL 0.9% 1000 ML 1,000 ML ONE (00:10)
[2017-07-05] MEDS ORDERED: VANCOMYCIN/NS 1 GM/250 ML 1 GM/250 ML BAG IV SCH (02:00)
[2017-07-05] MEDS ORDERED: ZEMURON IV ONE (02:16)
[2017-07-05] MEDS ORDERED: ATIVAN 100 MG in NACL 0.9% 50 ML, VIAFLEX EMPTY CONTAINER 0 ML IV SCH (03:00)
[2017-07-05] MEDS ORDERED: NACL 0.9% 500 ML IV SCH (03:00)
[2017-07-05] MEDS: D5W/0.45% NACL/KCL 20 MEQ 20 MEQ/1,000 ML BAG IV SCH ×2 (04:55→23:03)
[2017-07-05 05:28] LABS: Chloride 118.7 mmol/L (98-107)
[2017-07-05] MEDS: D50W (25GM) Vial IV PRN (05:49)
[2017-07-05] MEDS: fentaNYL DRIP Premix 2,000 MCG/100 ML BAG IV SCH (06:00)
[2017-07-05] MEDS: ZOSYN/NS 4.5GM/100ML 4.5 GM/100 ML VIAL IV SCH (06:11)
[2017-07-05 06:12] LABS: ISTAT Base Excess -14; ISTAT HCO3 14.6; ISTAT PCO2 39.2 (35-45); ISTAT PH 7.179 (7.35-7.45); ISTAT PO2 263 (80-105); ISTAT SO2 100; ISTAT TCO2 16
[2017-07-05] MEDS: KCL 20MEQ/100ML 20 MEQ/100 ML BAG IV SCH ×3 (08:45→11:09)
[2017-07-05] MEDS ORDERED: KCL 10MEQ/100ML 10 MEQ/100 ML BAG IV SCH (09:00)
--- NOTE | 2017-07-05 10:04 | XRay Report ---
CHEST 1 VIEW INDICATION: Respiratory failure followup. COMPARISON: Yesterday. FINDINGS: Portable, frontal chest radiograph, 8:15 AM, 07/05/2017 reveals stable cardiomediastinal silhouette, supporting devices, appearance of the lungs and osseous structures, providing for the difference in technique. CONCLUSION: Stable supporting devices and clear lungs. Thank you for the opportunity to participate in this patient's care.
[2017-07-05] MEDS: PEPCID IV SCH ×2 (11:09→21:40)
--- NOTE | 2017-07-05 11:19 | Consultation ---
History of Present Illness Consult date: 07/05/17 Requesting physician: NASIR MCHUGH Reason for consult: other History of present illness: 42 y/o male admitted with altered mental status and DKA. Intubated and sedated. Per ED doc, was a danger to himself and others so electively intubated. Remains sedated so no further history able to be obtained. Past History Past Medical History: diabetes, hepatitis, other (Nicotine Dependence, IVDA,) Past Surgical History: tonsillectomy Social history: , IV drug use Family history: diabetes, hypertension Medications and Allergies Allergies Allergy/AdvReac Type Severity Reaction Status Date / Time No Known Allergies Allergy Verified 06/30/17 14:18 Home Medications Medication Instructions Recorded Confirmed Last Taken Type Insulin Lispro [Humalog 100 10 units SQ TIDAC #30 insuln.pen 06/01/17 06/22/17 Unknown Rx UNITS/ML Kwikpen] Lantus Solostar 15 units SQ HS #30 06/01/17 06/22/17 Unknown Rx Metoclopramide [Reglan] 10 mg PO TID #90 tab 06/01/17 06/22/17 Unknown Rx Xanax TAB 0.5 mg PO BID #30 06/01/17 06/22/17 Unknown Rx Active Meds: Active Medications Al Hydrox/Mg Hydrox/Simethicone (Alum-Mag Hydrox-Simeth [id number]/5ml) 30 ml PO Q4H PRN PRN Reason: Indigestion Alprazolam (Xanax) 0.5 mg PO BID SHELIA Bisacodyl (Dulcolax) 10 mg WA QDAY PRN PRN Reason: constipation unrelieved by MOM Dextrose (D50w (25gm) Vial) 0 gm IV PRN PRN PRN Reason: Hypoglycemia Last Admin: 07/05/17 05:49 Dose: 10 gm Diphenhydramine HCl (Benadryl) 50 mg IV Q6H PRN PRN Reason: AGITATION Famotidine (Pepcid) 20 mg IV BID SHELIA Last Admin: 07/05/17 11:09 Dose: 20 mg Haloperidol Lactate (Haldol) 5 mg IM Q6H PRN PRN Reason: Agitation Heparin Sodium (Porcine) (Heparin) 5,000 unit SUB-Q BID SHELIA Hydrophilic Ointment (Vaseline Lip Therapy) 1 applic TP Q2HR PRN PRN Reason: Dry Lips Fentanyl Citrate (Fentanyl Drip Premix) 2,000 mcg in 100 mls @ 3.402 mls/hr IV TITR SHELIA; 1 MCG/KG/HR PRN Reason: Protocol Last Titration: 07/05/17 11:12 Dose: 0 mcg/kg/hr, 0 mls/hr Potassium Chloride/Dextrose/Sod Cl (D5w/0.45% Nacl/Kcl 20 Meq) 20 meq in 1,000 mls @ 125 mls/hr IV DIRECT SHELIA Last Admin: 07/05/17 04:55 Dose: 125 mls/hr Insulin Human Regular 100 (units/ Sodium Chloride) 100 mls @ 1 mls/hr IV TITR SHELIA; 1 UNITS/HR PRN Reason: Protocol Last Titration: 07/05/17 10:30 Dose: 0 units/hr, 0 mls/hr Lorazepam 100 mg/ Sodium Chloride/ Miscellaneous Information 100 mls @ 1 mls/ hr IV TITR SHELIA; 1 MG/HR PRN Reason: Protocol Last Titration: 07/05/17 11:13 Dose: 0 mg/hr, 0 mls/hr Potassium Chloride (Kcl 20meq/100ml) 20 meq in 100 mls @ 100 mls/hr IV Q1H SHELIA Stop: 07/05/17 11:59 Last Admin: 07/05/17 11:09 Dose: 100 mls/hr Lorazepam (Ativan) 2 mg IV Q4H PRN PRN Reason: Agitation Magnesium Hydroxide (Milk Of Magnesia) 30 ml PO Q4H PRN PRN Reason: Constipation Metoclopramide HCl (Reglan) 10 mg PO TID SHELIA Last Admin: 07/04/17 14:26 Dose: Not Given Multi-Ingred Cream/Lotion/Oil/Oint (Artificial Tears Ophth Oint) 1 applic OU Q4HR PRN PRN Reason: Dry Eye(s) Sodium Chloride (Nacl 0.9% 500 Ml) 1 ml IV DIRECT SHELIA Review of Systems ROS unobtainable: due to endotracheal tube, due to mental status Physical Examination Vital signs: Vital Signs Temp 93.3 F L 07/04/17 11:05 General appearance: no acute distress, alert ENT: other (orally intubated and sedated on vent) Effort: normal Ascultation: Bilateral: clear Results - Laboratory Findings CBC and BMP: 07/04/17 12:45 07/05/17 04:30 ABG POC ABG pH 7.179 (7.35-7.45) L 07/05/17 06:04 POC ABG pCO2 39.2 (35-45) 07/05/17 06:04 POC ABG pO2 263 (80-105) H 07/05/17 06:04 POC ABG HCO3 14.6 07/05/17 06:04 POC ABG Total CO2 16 07/05/17 06:04 POC ABG O2 Sat 100 07/05/17 06:04 PT/INR, D-dimer PT 16.3 Sec. (12.2-14.9) H 07/04/17 11:31 INR 1.25 (0.87-1.13) H 07/04/17 11:31 Abnormal lab findings: Abnormal Labs 07/04/17 07/04/17 07/04/17 12:45 12:45 12:45 WBC 21.3 H RBC 3.48 L Hgb 9.9 L MCV 108 H MCHC 26 L RDW 16.3 H Seg Neuts % (Manual) 89.0 H Lymphocytes % (Manual) 2.0 L Seg Neutrophils # Man 19.0 H Lymphocytes # (Manual) 0.4 L Monocytes # (Manual) 1.1 H POC ABG pH POC ABG pCO2 POC ABG pO2 Sodium 132 L Potassium Chloride 90.9 L Carbon Dioxide 6 L* BUN 31 H Creatinine Glucose 1112 H* POC Glucose Lactic Acid Calcium 7.3 L Phosphorus 8.60 H 07/04/17 07/04/17 07/04/17 13:20 14:28 14:28 WBC RBC Hgb MCV MCHC RDW Seg Neuts % (Manual) Lymphocytes % (Manual) Seg Neutrophils # Man Lymphocytes # (Manual) Monocytes # (Manual) POC ABG pH 6.743 L POC ABG pCO2 53.9 H POC ABG pO2 259 H Sodium 134 L Potassium 5.3 H Chloride 94.5 L Carbon Dioxide 6 L* BUN 31 H Creatinine Glucose 1060 H* POC Glucose Lactic Acid 3.20 H* Calcium 6.8 L Phosphorus 07/04/17 07/04/17 07/04/17 15:56 18:00 18:23 WBC RBC Hgb MCV MCHC RDW Seg Neuts % (Manual) Lymphocytes % (Manual) Seg Neutrophils # Man Lymphocytes # (Manual) Monocytes # (Manual) POC ABG pH POC ABG pCO2 POC ABG pO2 Sodium 133 L Potassium 3.5 L D Chloride 97.1 L Carbon Dioxide 7 L* 5 L* BUN 30 H 28 H Creatinine 1.6 H Glucose 1002 H* 988 H* POC Glucose > 500 H Lactic Acid Calcium 6.7 L 6.1 L Phosphorus 07/04/17 07/04/17 07/04/17 20:05 20:29 21:21 WBC RBC Hgb MCV MCHC RDW Seg Neuts % (Manual) Lymphocytes % (Manual) Seg Neutrophils # Man Lymphocytes # (Manual) Monocytes # (Manual) POC ABG pH POC ABG pCO2 POC ABG pO2 Sodium Potassium 3.3 L Chloride Carbon Dioxide 5 L* BUN 29 H Creatinine 1.8 H Glucose 542 H* POC Glucose 487 H 410 H Lactic Acid Calcium 6.5 L Phosphorus 07/04/17 07/04/17 07/05/17 22:42 23:25 00:22 WBC RBC Hgb MCV MCHC RDW Seg Neuts % (Manual) Lymphocytes % (Manual) Seg Neutrophils # Man Lymphocytes # (Manual) Monocytes # (Manual) POC ABG pH POC ABG pCO2 POC ABG pO2 Sodium Potassium Chloride Carbon Dioxide BUN Creatinine Glucose POC Glucose 360 H 338 H 276 H Lactic Acid Calcium Phosphorus 07/05/17 07/05/17 07/05/17 01:23 03:06 04:30 WBC RBC Hgb MCV MCHC RDW Seg Neuts % (Manual) Lymphocytes % (Manual) Seg Neutrophils # Man Lymphocytes # (Manual) Monocytes # (Manual) POC ABG pH POC ABG pCO2 POC ABG pO2 Sodium Potassium 3.0 L Chloride 118.7 H Carbon Dioxide 15 L D BUN 25 H Creatinine 1.6 H Glucose 63 L POC Glucose 245 H 213 H Lactic Acid Calcium 6.0 L Phosphorus 07/05/17 07/05/17 06:04 06:52 WBC RBC Hgb MCV MCHC RDW Seg Neuts % (Manual) Lymphocytes % (Manual) Seg Neutrophils # Man Lymphocytes # (Manual) Monocytes # (Manual) POC ABG pH 7.179 L POC ABG pCO2 POC ABG pO2 263 H Sodium Potassium Chloride Carbon Dioxide BUN Creatinine Glucose POC Glucose 159 H Lactic Acid Calcium Phosphorus - Diagnostic Findings Chest x-ray: image reviewed (clear) Assessment and Plan 42 y/o male with DKA and acute respiratory failure. 1. Discontinue all sedation 2. Attempt extubation 3. Ordered calming cocktail in the event that patient is combative 4. Ordered PRN meds to help with mood 5. Anion Gap has closed. Transition to subQ insulin and feed if able to be extubated 6. Replace electrolytes. CCt 31 minutes.
[2017-07-05] MEDS: NOVOLOG SUB-Q SCH ×2 (12:00→18:04)
[2017-07-05] MEDS: LEVEMIR SUB-Q SCH (13:17)
[2017-07-05] MEDS: HEPARIN SUB-Q SCH ×2 (13:17→21:20)
[2017-07-05] MEDS: REGLAN PO SCH ×3 (16:54→23:46)
[2017-07-05] MEDS: XANAX PO SCH ×2 (18:02→22:00)
--- NOTE | 2017-07-06 00:06 | Progress Note ---
Assessment and Plan Assessment and plan: This is a 42-year-old male, previously unknown to this provider. Patient has a past medical history of type 1 diabetes, diabetic ketoacidosis, IV drug abuse. Patient brought to the hospital by EMS for altered mental status. Patient found unresponsive in a local hotel, for uncertain duration of time, uncertain mechanism, with evidence of drug paraphernalia. As per verbal report from EMS, patient initially hypotensive, hypothermic, hyperglycemic, and hypoxic in the field. EMS further reported that they gave 2 mg of Narcan in the field, which somewhat improved the patient's mental status obtundation. Upon arrival to the ER, the patient was altered, combative, pulling at his leads, monitor, trying to get out of the stretcher, trying to pull out his IV. Patient was clearly a danger to himself and other patients, given hypothermia, metabolic derangement, vital signs derangement, uncertain etiology of altered mental status, patient intubated using cervical spine immobilization by myself with one attempt with no difficulty or complications. Patient was found to be hyperglycemic, glucose of greater than 500, hypothermic with a core rectal temperature of 93, with blood pressure in the low 100s. Patient started empirically on the sepsis pathway, as well as the DKA pathway. (1) Sepsis Sepsis protocol: Empiric ABX, IVF, monitor uop q shift, serial lactic acid, blood cultures, urinalysis, repeat cbc (2) DKA (diabetic ketoacidoses) DKA protocol, insulin drip, serial bmp to monitor anion gap, IVF resuscitation. Gap closing, change to subq insulin When gap is closed. on extubation will discuss management of diabetes with the patient (3) Metabolic acidosis Treat sepsis, and DKA, repeat bmp, bicarbonate supplementation. (4) Acute respiratory failure Supplemental oxygen, nebs, wean vent as tolerated, daily SBT, pulmonary consulted, wean vent as tolerated, wean sedation and attempt extubation (5) ?Amphetamine Abuse await extubation for further discussion and counselling. Wean sedation to evaluate mental status (6)DVT prophylaxis The high probability of a clinically significant, sudden or life threatening deterioration of the [cardiac, pulmonary, endocrine] system(s) required my full and direct attention, intervention and personal management. The aggregate critical care time was [35] minutes. This time is in addition to time spent performing reported procedures but includes the following: [x] Data Review and interpretation [x] Patient assessment and monitoring of vital signs [x] Documentation [x] Medication orders and management History Interval history: patient seen and examined, remains sedated and intubated. Hospitalist Physical - Constitutional Vitals: Temp Pulse Resp BP Pulse Ox 99.4 F 89 12 118/66 100 07/05/17 19:34 07/05/17 23:31 07/05/17 23:11 07/05/17 23:31 07/05/17 23:31 General appearance: Present: no acute distress, other (intubated) - EENT Eyes: Present: PERRL ENT: other (ETT TUBE IN PLACE) - Neck Neck: Present: supple - Respiratory Respiratory effort: other (intubated) Respiratory: bilateral: CTA - Cardiovascular Rhythm: regular Heart Sounds: Present: S1 & S2 - Extremities Extremities: no ischemia, pulses intact, No edema Peripheral Pulses: within normal limits - Abdominal General gastrointestinal: soft, non-tender, non-distended - Integumentary Integumentary: Present: warm, dry - Psychiatric Psychiatric: other (intubated) - Neurologic Neurologic: other (unable to assess patient intuabated) - Allied Health Allied health notes reviewed: nursing Results - Labs CBC & Chem 7: 07/06/17 03:04 07/06/17 03:04 Labs: Laboratory Last Values WBC 21.3 K/mm3 (4.5-11.0) H 07/04/17 12:45 RBC 3.48 M/mm3 (3.65-5.03) L 07/04/17 12:45 Hgb 9.9 gm/dl (11.8-15.2) L 07/04/17 12:45 Hct 37.7 % (35.5-45.6) 07/04/17 12:45 MCV 108 fl (84-94) H 07/04/17 12:45 MCH 28 pg (28-32) 07/04/17 12:45 MCHC 26 % (32-34) L 07/04/17 12:45 RDW 16.3 % (13.2-15.2) H 07/04/17 12:45 Plt Count 296 K/mm3 (140-440) 07/04/17 12:45 Add Manual Diff Complete 07/04/17 12:45 Total Counted 100 07/04/17 12:45 Seg Neuts % (Manual) 89.0 % (40.0-70.0) H 07/04/17 12:45 Band Neutrophils % 4.0 % 07/04/17 12:45 Lymphocytes % (Manual) 2.0 % (13.4-35.0) L 07/04/17 12:45 Reactive Lymphs % (Man) 0 % 07/04/17 12:45 Monocytes % (Manual) 5.0 % (0.0-7.3) 07/04/17 12:45 Eosinophils % (Manual) 0 % (0.0-4.3) 07/04/17 12:45 Basophils % (Manual) 0 % (0.0-1.8) 07/04/17 12:45 Metamyelocytes % 0 % 07/04/17 12:45 Myelocytes % 0 % 07/04/17 12:45 Promyelocytes % 0 % 07/04/17 12:45 Blast Cells % 0 % 07/04/17 12:45 Nucleated RBC % Not Reportable 07/04/17 12:45 Seg Neutrophils # Man 19.0 K/mm3 (1.8-7.7) H 07/04/17 12:45 Band Neutrophils # 0.9 K/mm3 07/04/17 12:45 Lymphocytes # (Manual) 0.4 K/mm3 (1.2-5.4) L 07/04/17 12:45 Abs React Lymphs (Man) 0.0 K/mm3 07/04/17 12:45 Monocytes # (Manual) 1.1 K/mm3 (0.0-0.8) H 07/04/17 12:45 Eosinophils # (Manual) 0.0 K/mm3 (0.0-0.4) 07/04/17 12:45 Basophils # (Manual) 0.0 K/mm3 (0.0-0.1) 07/04/17 12:45 Metamyelocytes # 0.0 K/mm3 07/04/17 12:45 Myelocytes # 0.0 K/mm3 07/04/17 12:45 Promyelocytes # 0.0 K/mm3 07/04/17 12:45 Blast Cells # 0.0 K/mm3 07/04/17 12:45 WBC Morphology Not Reportable 07/04/17 12:45 Hypersegmented Neuts Not Reportable 07/04/17 12:45 Hyposegmented Neuts Not Reportable 07/04/17 12:45 Hypogranular Neuts Not Reportable 07/04/17 12:45 Smudge Cells Not Reportable 07/04/17 12:45 Toxic Granulation Not Reportable 07/04/17 12:45 Toxic Vacuolation Not Reportable 07/04/17 12:45 Dohle Bodies Not Reportable 07/04/17 12:45 Pelger-Huet Anomaly Not Reportable 07/04/17 12:45 Edyanira Rods Not Reportable 07/04/17 12:45 Platelet Estimate Appears normal 07/04/17 12:45 Clumped Platelets Not Reportable 07/04/17 12:45 Plt Clumps, EDTA Not Reportable 07/04/17 12:45 Large Platelets Not Reportable 07/04/17 12:45 Giant Platelets Not Reportable 07/04/17 12:45 Platelet Satelliting Not Reportable 07/04/17 12:45 Plt Morphology Comment Not Reportable 07/04/17 12:45 RBC Morphology Not Reportable 07/04/17 12:45 Dimorphic RBCs Not Reportable 07/04/17 12:45 Polychromasia Not Reportable 07/04/17 12:45 Hypochromasia Not Reportable 07/04/17 12:45 Poikilocytosis Not Reportable 07/04/17 12:45 Anisocytosis 2+ 07/04/17 12:45 Microcytosis Not Reportable 07/04/17 12:45 Macrocytosis 2+ 07/04/17 12:45 Spherocytes Not Reportable 07/04/17 12:45 Pappenheimer Bodies Not Reportable 07/04/17 12:45 Sickle Cells Not Reportable 07/04/17 12:45 Target Cells Not Reportable 07/04/17 12:45 Tear Drop Cells Not Reportable 07/04/17 12:45 Ovalocytes Not Reportable 07/04/17 12:45 Helmet Cells Not Reportable 07/04/17 12:45 [place] Bodies Not Reportable 07/04/17 12:45 [place] Rings Not Reportable 07/04/17 12:45 Shawn Cells Not Reportable 07/04/17 12:45 Bite Cells Not Reportable 07/04/17 12:45 Crenated Cell Not Reportable 07/04/17 12:45 Elliptocytes Not Reportable 07/04/17 12:45 Acanthocytes (Spur) Not Reportable 07/04/17 12:45 Rouleaux Not Reportable 07/04/17 12:45 Hemoglobin C Crystals Not Reportable 07/04/17 12:45 Schistocytes Not Reportable 07/04/17 12:45 Malaria parasites Not Reportable 07/04/17 12:45 Andrei Bodies Not Reportable 07/04/17 12:45 Hem Pathologist Commnt No 07/04/17 12:45 PT 16.3 Sec. (12.2-14.9) H 07/04/17 11:31 INR 1.25 (0.87-1.13) H 07/04/17 11:31 APTT 25.3 Sec. (24.2-36.6) 07/04/17 11:31 POC ABG pH 7.179 (7.35-7.45) L 07/05/17 06:04 POC ABG pCO2 39.2 (35-45) 07/05/17 06:04 POC ABG pO2 263 (80-105) H 07/05/17 06:04 POC ABG HCO3 14.6 07/05/17 06:04 POC ABG Total CO2 16 07/05/17 06:04 POC ABG O2 Sat 100 07/05/17 06:04 POC ABG Base Excess -14 07/05/17 06:04 VBG pH 6.816 (7.320-7.420) L* 07/04/17 11:25 FiO2 50 % 07/05/17 06:04 Sodium 143 mmol/L (137-145) 07/05/17 04:30 Potassium 3.0 mmol/L (3.6-5.0) L 07/05/17 04:30 Chloride 118.7 mmol/L (98-107) H 07/05/17 04:30 Carbon Dioxide 15 mmol/L (22-30) L D 07/05/17 04:30 Anion Gap 12 mmol/L 07/05/17 04:30 BUN 25 mg/dL (9-20) H 07/05/17 04:30 Creatinine 1.6 mg/dL (0.8-1.5) H 07/05/17 04:30 Estimated GFR 48 ml/min 07/05/17 04:30 BUN/Creatinine Ratio 16 % 07/05/17 04:30 Glucose 63 mg/dL (75-100) L 07/05/17 04:30 POC Glucose 208 (70-105) H 07/05/17 17:56 Lactic Acid 3.20 mmol/L (0.7-2.0) H* 07/04/17 14:28 Calcium 6.0 mg/dL (8.4-10.2) L 07/05/17 04:30 Phosphorus 8.60 mg/dL (2.5-4.5) H 07/04/17 12:45 Magnesium 2.20 mg/dL (1.7-2.3) 07/04/17 12:45 Total Bilirubin < 0.20 mg/dL (0.1-1.2) 07/04/17 11:25 AST 50 units/L (5-40) H 07/04/17 11:25 ALT 69 units/L (7-56) H 07/04/17 11:25 Alkaline Phosphatase 266 units/L (35-129) H 07/04/17 11:25 Total Protein 6.4 g/dL (6.3-8.2) 07/04/17 11:25 Albumin 3.2 g/dL (3.9-5) L 07/04/17 11:25 Albumin/Globulin Ratio 1.0 % 07/04/17 11:25 TSH 1.810 mlU/mL (0.270-4.200) 07/04/17 11:25 Urine Color Yellow (Yellow) 07/04/17 12:38 Urine Turbidity Clear (Clear) 07/04/17 12:38 Urine pH 5.0 (5.0-7.0) 07/04/17 12:38 Ur Specific [place] 1.022 (1.003-1.030) 07/04/17 12:38 Urine Protein <15 mg/dl mg/dL (Negative) 07/04/17 12:38 Urine Glucose (UA) >=500 mg/dL (Negative) 07/04/17 12:38 Urine Ketones 20 mg/dL (Negative) 07/04/17 12:38 Urine Blood Sm (Negative) 07/04/17 12:38 Urine Nitrite Neg (Negative) 07/04/17 12:38 Urine Bilirubin Neg (Negative) 07/04/17 12:38 Urine Urobilinogen < 2.0 mg/dL (<2.0) 07/04/17 12:38 Ur Leukocyte Esterase Neg (Negative) 07/04/17 12:38 Urine WBC (Auto) 11.0 /HPF (0.0-6.0) H 07/04/17 12:38 Urine RBC (Auto) 3.0 /HPF (0.0-6.0) 07/04/17 12:38 U Epithel Cells (Auto) < 1.0 /HPF (0-13.0) 07/04/17 12:38 Urine Bacteria (Auto) 1+ /HPF (Negative) 07/04/17 12:38 Urine Mucus Few /HPF 07/04/17 12:38 Salicylates < 0.3 mg/dL (2.8-20.0) L 07/04/17 11:25 Urine Opiates Screen Presumptive negative 07/04/17 12:38 Urine Methadone Screen Presumptive negative 07/04/17 12:38 Acetaminophen < 15.0 ug/mL (10.0-30.0) 07/04/17 11:25 Ur Barbiturates Screen Presumptive negative 07/04/17 12:38 Ur Phencyclidine Scrn Presumptive negative 07/04/17 12:38 Ur Amphetamines Screen Presumptive positive 07/04/17 12:38 U Benzodiazepines Scrn Presumptive negative 07/04/17 12:38 Urine Cocaine Screen Presumptive negative 07/04/17 12:38 U Marijuana (THC) Screen Presumptive negative 07/04/17 12:38 Drugs of Abuse Note Disclamer 07/04/17 12:38 Plasma/Serum Alcohol < 0.01 gm% (0-0.07) 07/04/17 11:25 - Imaging and Cardiology Chest x-ray: image reviewed (NO ACUTE PATHOLOGY. ETT IN PLACE)
[2017-07-06 00:29] LABS: ISTAT Base Excess -14; ISTAT PCO2 33.4 (35-45); ISTAT PH 7.231 (7.35-7.45); ISTAT PO2 149 (80-105); ISTAT SO2 99; ISTAT TCO2 15
[2017-07-06] MEDS: NOVOLOG SUB-Q SCH ×4 (01:10→17:00)
[2017-07-06] MEDS: D50W (25GM) Vial IV PRN ×2 (01:16→05:50)
[2017-07-06 03:20] LABS: Hemoglobin 9.9 gm/dl (11.8-15.2); Mean Corpuscular HGB Conc 33 % (32-34); Mean Corpuscular Hemoglobin 29 pg (28-32); Mean Corpuscular Volume 87 fl (84-94); Platelet Count 123 K/mm3 (140-440); Red Blood Count 3.43 M/mm3 (3.65-5.03); Red Cell Distribution Width 15.7 % (13.2-15.2); White Blood Count 11.9 K/mm3 (4.5-11.0)
[2017-07-06 03:22] LABS: Hematocrit 32.9 % (35.5-45.6)
[2017-07-06 03:38] LABS: Calcium 6.4 mg/dL (8.4-10.2); Chloride 110.7 mmol/L (98-107); Magnesium 1.4 mg/dL (1.7-2.3); Potassium 3.9 mmol/L (3.6-5.0)
[2017-07-06] MEDS: D5W/0.45% NACL/KCL 20 MEQ 20 MEQ/1,000 ML BAG IV SCH (05:37)
[2017-07-06] MEDS ORDERED: D5W/0.45% NACL/KCL 20 MEQ 20 MEQ/1,000 ML BAG IV SCH (07:00)
[2017-07-06] MEDS ORDERED: D5W 1,000 ML IV SCH (07:00)
--- NOTE | 2017-07-06 07:49 | Progress Note ---
Assessment and Plan 42 y/o male with DKA and acute respiratory failure. 1. q1 hour finger sticks until blood sugar stablizes 2. Continue D5 at 150, hold levemir dose this am 3. Ordered calming cocktail in the event that patient is combative 4. Ordered PRN meds to help with mood 5. Replace electrolytes. CCt 31 minutes. Subjective Date of service: 07/06/17 Interval history: Extubated early am. Awake, currently on venti mask but he does not need this. Was given long acting insulin yesterday but patient was not fed so became hypoglycemic this am. Required several amps of D50. Asked nursing to increase Rate of D5 to 150. Otherwise, stable Objective Vital Signs - 12hr 07/05/17 07/05/17 07/05/17 19:51 19:59 20:00 Temperature Pulse Rate 84 84 84 Pulse Rate [ Apical] Respiratory 16 16 Rate Blood Pressure 94/64 86/56 86/56 O2 Sat by Pulse 100 100 Oximetry 07/05/17 07/05/17 07/05/17 20:11 20:21 20:30 Temperature Pulse Rate 83 83 84 Pulse Rate [ Apical] Respiratory 26 H 16 12 Rate Blood Pressure 86/56 86/56 90/57 O2 Sat by Pulse 100 100 Oximetry 07/05/17 07/05/17 07/05/17 20:41 20:51 21:00 Temperature Pulse Rate 85 84 83 Pulse Rate [ Apical] Respiratory 20 22 18 Rate Blood Pressure 90/57 90/57 97/58 O2 Sat by Pulse 100 100 100 Oximetry 07/05/17 07/05/17 07/05/17 21:11 21:21 21:30 Temperature Pulse Rate 85 85 84 Pulse Rate [ Apical] Respiratory 11 L 16 16 Rate Blood Pressure 97/58 97/58 105/59 O2 Sat by Pulse 100 100 100 Oximetry 07/05/17 07/05/17 07/05/17 21:41 21:51 22:00 Temperature Pulse Rate 85 85 86 Pulse Rate [ Apical] Respiratory 18 16 18 Rate Blood Pressure 105/59 105/59 108/58 O2 Sat by Pulse 100 100 Oximetry 07/05/17 07/05/17 07/05/17 22:11 22:21 22:30 Temperature Pulse Rate 85 85 88 Pulse Rate [ Apical] Respiratory 15 18 15 Rate Blood Pressure 108/58 108/58 108/64 O2 Sat by Pulse 100 100 100 Oximetry 07/05/17 07/05/17 07/05/17 22:41 22:51 23:00 Temperature Pulse Rate 86 86 86 Pulse Rate [ Apical] Respiratory 21 18 15 Rate Blood Pressure 108/64 108/64 113/63 O2 Sat by Pulse 100 100 Oximetry 07/05/17 07/05/17 07/05/17 23:11 23:21 23:30 Temperature Pulse Rate 86 87 89 Pulse Rate [ Apical] Respiratory 12 11 L 12 Rate Blood Pressure 113/63 113/63 118/66 O2 Sat by Pulse 100 100 Oximetry 07/05/17 07/05/17 07/05/17 23:31 23:41 23:51 Temperature Pulse Rate 89 87 90 Pulse Rate [ Apical] Respiratory 11 L 21 Rate Blood Pressure 118/66 118/66 118/66 O2 Sat by Pulse 100 100 100 Oximetry 07/06/17 07/06/17 07/06/17 00:00 00:11 00:13 Temperature 98.4 F Pulse Rate 90 91 H 91 H Pulse Rate [ 89 Apical] Respiratory 17 16 16 Rate Blood Pressure 120/65 120/65 120/65 O2 Sat by Pulse 100 100 Oximetry 07/06/17 07/06/17 07/06/17 00:21 00:30 00:41 Temperature Pulse Rate 90 92 H 91 H Pulse Rate [ Apical] Respiratory 14 15 17 Rate Blood Pressure 120/65 126/70 126/70 O2 Sat by Pulse 100 100 Oximetry 07/06/17 07/06/17 07/06/17 00:51 01:00 01:11 Temperature Pulse Rate 92 H 98 H 92 H Pulse Rate [ Apical] Respiratory 14 10 L 14 Rate Blood Pressure 126/70 125/67 125/67 O2 Sat by Pulse 100 100 100 Oximetry 07/06/17 07/06/17 07/06/17 01:21 01:30 01:41 Temperature Pulse Rate 93 H 93 H 94 H Pulse Rate [ Apical] Respiratory 10 L 13 13 Rate Blood Pressure 125/67 141/60 125/67 O2 Sat by Pulse 100 100 100 Oximetry 07/06/17 07/06/17 07/06/17 01:51 01:54 02:00 Temperature Pulse Rate 119 H 101 H Pulse Rate [ Apical] Respiratory 16 24 Rate Blood Pressure 125/67 135/70 O2 Sat by Pulse 100 100 100 Oximetry 07/06/17 07/06/17 07/06/17 02:11 02:21 02:30 Temperature Pulse Rate 97 H 94 H 97 H Pulse Rate [ Apical] Respiratory 13 19 23 Rate Blood Pressure 141/60 141/60 129/69 O2 Sat by Pulse 100 100 100 Oximetry 07/06/17 07/06/17 07/06/17 02:41 02:51 03:00 Temperature Pulse Rate 94 H 93 H 94 H Pulse Rate [ Apical] Respiratory 17 24 24 Rate Blood Pressure 129/69 129/69 126/68 O2 Sat by Pulse 100 100 100 Oximetry 07/06/17 07/06/17 07/06/17 03:11 03:21 03:30 Temperature Pulse Rate 95 H 91 H 90 Pulse Rate [ Apical] Respiratory 18 21 16 Rate Blood Pressure 126/68 126/68 118/62 O2 Sat by Pulse 100 100 Oximetry 07/06/17 07/06/17 07/06/17 03:38 03:41 03:51 Temperature Pulse Rate 90 89 Pulse Rate [ Apical] Respiratory 16 17 Rate Blood Pressure 118/62 118/62 O2 Sat by Pulse 100 100 100 Oximetry 07/06/17 07/06/17 07/06/17 03:55 04:00 04:11 Temperature 98.8 F Pulse Rate 88 88 Pulse Rate [ 73 Apical] Respiratory 22 23 Rate Blood Pressure 115/63 115/63 O2 Sat by Pulse 100 100 Oximetry 07/06/17 07/06/17 07/06/17 04:21 04:30 04:41 Temperature Pulse Rate 89 88 89 Pulse Rate [ Apical] Respiratory 17 15 20 Rate Blood Pressure 115/63 124/66 118/62 O2 Sat by Pulse 100 100 Oximetry 07/06/17 07/06/17 07/06/17 04:51 04:57 05:00 Temperature Pulse Rate 88 77 93 H Pulse Rate [ Apical] Respiratory 21 20 Rate Blood Pressure 118/62 129/72 O2 Sat by Pulse 100 100 Oximetry 07/06/17 07/06/17 07/06/17 05:11 05:21 05:30 Temperature Pulse Rate 91 H 92 H 91 H Pulse Rate [ Apical] Respiratory 37 H 18 14 Rate Blood Pressure 129/72 129/72 127/72 O2 Sat by Pulse 100 100 100 Oximetry 07/06/17 07/06/17 07/06/17 05:41 05:51 06:00 Temperature Pulse Rate 94 H 93 H 93 H Pulse Rate [ Apical] Respiratory 16 21 18 Rate Blood Pressure 127/72 127/72 130/63 O2 Sat by Pulse 100 100 100 Oximetry 07/06/17 07/06/17 07/06/17 06:11 06:21 06:30 Temperature Pulse Rate 92 H 92 H 92 H Pulse Rate [ Apical] Respiratory 14 14 16 Rate Blood Pressure 127/72 127/72 125/74 O2 Sat by Pulse 100 100 Oximetry 07/06/17 07/06/17 07/06/17 06:41 06:51 07:00 Temperature Pulse Rate 92 H 92 H 92 H Pulse Rate [ Apical] Respiratory 17 16 19 Rate Blood Pressure 130/63 130/63 114/62 O2 Sat by Pulse 100 100 100 Oximetry Constitutional: no acute distress, alert, lethargic Effort: normal Ascultation: Bilateral: clear CBC and BMP: 07/06/17 03:04 07/06/17 03:04 ABG, PT/INR, D-dimer: ABG POC ABG pH 7.231 (7.35-7.45) L 07/05/17 23:59 POC ABG pCO2 33.4 (35-45) L 07/05/17 23:59 POC ABG pO2 149 (80-105) H 07/05/17 23:59 POC ABG HCO3 14.0 07/05/17 23:59 POC ABG Total CO2 15 07/05/17 23:59 POC ABG O2 Sat 99 07/05/17 23:59 PT/INR, D-dimer PT 16.3 Sec. (12.2-14.9) H 07/04/17 11:31 INR 1.25 (0.87-1.13) H 07/04/17 11:31 Abnormal lab findings: Abnormal Labs 07/04/17 07/04/17 07/04/17 12:45 12:45 12:45 WBC 21.3 H RBC 3.48 L Hgb 9.9 L Hct MCV 108 H MCHC 26 L RDW 16.3 H Plt Count Seg Neuts % (Manual) 89.0 H Lymphocytes % (Manual) 2.0 L Seg Neutrophils # Man 19.0 H Lymphocytes # (Manual) 0.4 L Monocytes # (Manual) 1.1 H POC ABG pH POC ABG pCO2 POC ABG pO2 Sodium 132 L Potassium Chloride 90.9 L Carbon Dioxide 6 L* BUN 31 H Creatinine Glucose 1112 H* POC Glucose Lactic Acid Calcium 7.3 L Phosphorus 8.60 H Magnesium 07/04/17 07/04/17 07/04/17 13:20 14:28 14:28 WBC RBC Hgb Hct MCV MCHC RDW Plt Count Seg Neuts % (Manual) Lymphocytes % (Manual) Seg Neutrophils # Man Lymphocytes # (Manual) Monocytes # (Manual) POC ABG pH 6.743 L POC ABG pCO2 53.9 H POC ABG pO2 259 H Sodium 134 L Potassium 5.3 H Chloride 94.5 L Carbon Dioxide 6 L* BUN 31 H Creatinine Glucose 1060 H* POC Glucose Lactic Acid 3.20 H* Calcium 6.8 L Phosphorus Magnesium 07/04/17 07/04/17 07/04/17 15:56 18:00 18:23 WBC RBC Hgb Hct MCV MCHC RDW Plt Count Seg Neuts % (Manual) Lymphocytes % (Manual) Seg Neutrophils # Man Lymphocytes # (Manual) Monocytes # (Manual) POC ABG pH POC ABG pCO2 POC ABG pO2 Sodium 133 L Potassium 3.5 L D Chloride 97.1 L Carbon Dioxide 7 L* 5 L* BUN 30 H 28 H Creatinine 1.6 H Glucose 1002 H* 988 H* POC Glucose > 500 H Lactic Acid Calcium 6.7 L 6.1 L Phosphorus Magnesium 07/04/17 07/04/17 07/04/17 20:05 20:29 21:21 WBC RBC Hgb Hct MCV MCHC RDW Plt Count Seg Neuts % (Manual) Lymphocytes % (Manual) Seg Neutrophils # Man Lymphocytes # (Manual) Monocytes # (Manual) POC ABG pH POC ABG pCO2 POC ABG pO2 Sodium Potassium 3.3 L Chloride Carbon Dioxide 5 L* BUN 29 H Creatinine 1.8 H Glucose 542 H* POC Glucose 487 H 410 H Lactic Acid Calcium 6.5 L Phosphorus Magnesium 07/04/17 07/04/17 07/05/17 22:42 23:25 00:22 WBC RBC Hgb Hct MCV MCHC RDW Plt Count Seg Neuts % (Manual) Lymphocytes % (Manual) Seg Neutrophils # Man Lymphocytes # (Manual) Monocytes # (Manual) POC ABG pH POC ABG pCO2 POC ABG pO2 Sodium Potassium Chloride Carbon Dioxide BUN Creatinine Glucose POC Glucose 360 H 338 H 276 H Lactic Acid Calcium Phosphorus Magnesium 07/05/17 07/05/17 07/05/17 01:23 03:06 04:30 WBC RBC Hgb Hct MCV MCHC RDW Plt Count Seg Neuts % (Manual) Lymphocytes % (Manual) Seg Neutrophils # Man Lymphocytes # (Manual) Monocytes # (Manual) POC ABG pH POC ABG pCO2 POC ABG pO2 Sodium Potassium 3.0 L Chloride 118.7 H Carbon Dioxide 15 L D BUN 25 H Creatinine 1.6 H Glucose 63 L POC Glucose 245 H 213 H Lactic Acid Calcium 6.0 L Phosphorus Magnesium 07/05/17 07/05/17 07/05/17 06:04 06:52 08:09 WBC RBC Hgb Hct MCV MCHC RDW Plt Count Seg Neuts % (Manual) Lymphocytes % (Manual) Seg Neutrophils # Man Lymphocytes # (Manual) Monocytes # (Manual) POC ABG pH 7.179 L POC ABG pCO2 POC ABG pO2 263 H Sodium Potassium Chloride Carbon Dioxide BUN Creatinine Glucose POC Glucose 159 H 174 H Lactic Acid Calcium Phosphorus Magnesium 07/05/17 07/05/17 07/06/17 17:56 23:59 01:00 WBC RBC Hgb Hct MCV MCHC RDW Plt Count Seg Neuts % (Manual) Lymphocytes % (Manual) Seg Neutrophils # Man Lymphocytes # (Manual) Monocytes # (Manual) POC ABG pH 7.231 L POC ABG pCO2 33.4 L POC ABG pO2 149 H Sodium Potassium Chloride Carbon Dioxide BUN Creatinine Glucose POC Glucose 208 H 41 L Lactic Acid Calcium Phosphorus Magnesium 07/06/17 07/06/17 07/06/17 01:29 03:04 03:04 WBC 11.9 H RBC 3.43 L Hgb 9.9 L Hct 32.9 L MCV MCHC RDW 15.7 H Plt Count 123 L Seg Neuts % (Manual) Lymphocytes % (Manual) Seg Neutrophils # Man Lymphocytes # (Manual) Monocytes # (Manual) POC ABG pH POC ABG pCO2 POC ABG pO2 Sodium Potassium Chloride 110.7 H Carbon Dioxide 13 L BUN 29 H Creatinine 2.7 H D Glucose POC Glucose < 40 L Lactic Acid Calcium 6.4 L Phosphorus 2.00 L Magnesium 1.40 L 07/06/17 05:50 WBC RBC Hgb Hct MCV MCHC RDW Plt Count Seg Neuts % (Manual) Lymphocytes % (Manual) Seg Neutrophils # Man Lymphocytes # (Manual) Monocytes # (Manual) POC ABG pH POC ABG pCO2 POC ABG pO2 Sodium Potassium Chloride Carbon Dioxide BUN Creatinine Glucose POC Glucose 56 L Lactic Acid Calcium Phosphorus Magnesium
[2017-07-06] MEDS: LEVEMIR SUB-Q SCH (10:35)
[2017-07-06] MEDS: REGLAN PO SCH ×3 (11:06→20:17)
[2017-07-06] MEDS: XANAX PO SCH ×2 (11:06→11:16)
[2017-07-06] MEDS: PEPCID IV SCH (11:07)
[2017-07-06] MEDS: HEPARIN SUB-Q SCH (11:07)
[2017-07-06] MEDS: ATIVAN IV PRN ×2 (13:36→20:31)
[2017-07-06] MEDS: HALDOL IM PRN ×2 (14:34→20:31)
[2017-07-06] MEDS: BENADRYL IV PRN ×2 (14:34→20:31)
--- NOTE | 2017-07-06 16:35 | Progress Note ---
Assessment and Plan Assessment and plan: This is a 42-year-old man IDDM, diabetic ketoacidosis and IV drug abuse, patient brought to the hospital by EMS for altered mental status. Patient found unresponsive in a local hotel, for uncertain duration of time, uncertain mechanism, with evidence of drug paraphernalia. As per verbal report from EMS, patient initially hypotensive, hypothermic, hyperglycemic, and hypoxic in the field. EMS further reported that they gave 2 mg of Narcan in the field, which somewhat improved the patient's mental status obtundation. Upon arrival to the ER, the patient was altered, combative, pulling at his leads, monitor, trying to get out of the stretcher, trying to pull out his IV. Patient was clearly a danger to himself and other patients and was intubated. - SIRS, poa and No Sepsis without a source - DKA (diabetic ketoacidoses), resolved, with episdoes of hypoglycemia: stop long acting insulin, until pt is eating better - Acute toxic metabolic encephalopathy due to amphetamine - Metabolic acidosis, due to DKA - Acute respiratory failure, extubated 07/06/17 Supplemental oxygen, nebs, wean vent as tolerated, daily SBT, pulmonary consulted, wean vent as tolerated, wean sedation and attempt extubation - Amphetamine Abuse: counseling attempted -DVT prophylaxis: scd, stop heparin due to drop in plt ok to transfer out of ICU per [facility] History Interval history: Patient was seen and examined. Follow-up on current diagnosis/ams which is still present but he is eating now. Overnight eventful with hypoglycemia. Imaging, nursing note, chart, labs and old chart reviewed. Discussed with patient. Hospitalist Physical - Physical exam Narrative exam: GEN: WDWN, NAD, AWAKE, ALERT, ORIENTATED but mumbling HEENT: NCAT, EOMI, PERRL, OP Clear NECK: supple, no adenopathy, no thyromegaly, no JVD CVS/HEART: RRR, NORMAL S1S2, NO JVD, pulses present bilaterally CHEST/LUNGS: CTA B, Symmetrical chest expansion, good air entry bilaterally GI/Abdomen: soft, NTND, good bowel sounds, no guarding or rebound /Bladder: no suprapubic tenderness, no CVA or paraspinal tenderness EXT/Skin: no c/c/e, no obvious rash MSK: FROM x 4 Neuro: CN 2-12 grossly intact, follows some commands. Psych: calm - Constitutional Vitals: Temp Pulse Resp BP Pulse Ox 98.2 F 100 H 19 111/64 95 07/06/17 12:00 07/06/17 16:01 07/06/17 16:01 07/06/17 16:01 07/06/17 15:31 General appearance: Present: no acute distress. Absent: other Results - Labs CBC & Chem 7: 07/06/17 03:04 07/06/17 03:04 Labs: Laboratory Last Values WBC 11.9 K/mm3 (4.5-11.0) H 07/06/17 03:04 RBC 3.43 M/mm3 (3.65-5.03) L 07/06/17 03:04 Hgb 9.9 gm/dl (11.8-15.2) L 07/06/17 03:04 Hct 32.9 % (35.5-45.6) L 07/06/17 03:04 MCV 87 fl (84-94) 07/06/17 03:04 MCH 29 pg (28-32) 07/06/17 03:04 MCHC 33 % (32-34) 07/06/17 03:04 RDW 15.7 % (13.2-15.2) H 07/06/17 03:04 Plt Count 123 K/mm3 (140-440) L 07/06/17 03:04 Add Manual Diff Complete 07/04/17 12:45 Total Counted 100 07/04/17 12:45 Seg Neuts % (Manual) 89.0 % (40.0-70.0) H 07/04/17 12:45 Band Neutrophils % 4.0 % 07/04/17 12:45 Lymphocytes % (Manual) 2.0 % (13.4-35.0) L 07/04/17 12:45 Reactive Lymphs % (Man) 0 % 07/04/17 12:45 Monocytes % (Manual) 5.0 % (0.0-7.3) 07/04/17 12:45 Eosinophils % (Manual) 0 % (0.0-4.3) 07/04/17 12:45 Basophils % (Manual) 0 % (0.0-1.8) 07/04/17 12:45 Metamyelocytes % 0 % 07/04/17 12:45 Myelocytes % 0 % 07/04/17 12:45 Promyelocytes % 0 % 07/04/17 12:45 Blast Cells % 0 % 07/04/17 12:45 Nucleated RBC % Not Reportable 07/04/17 12:45 Seg Neutrophils # Man 19.0 K/mm3 (1.8-7.7) H 07/04/17 12:45 Band Neutrophils # 0.9 K/mm3 07/04/17 12:45 Lymphocytes # (Manual) 0.4 K/mm3 (1.2-5.4) L 07/04/17 12:45 Abs React Lymphs (Man) 0.0 K/mm3 07/04/17 12:45 Monocytes # (Manual) 1.1 K/mm3 (0.0-0.8) H 07/04/17 12:45 Eosinophils # (Manual) 0.0 K/mm3 (0.0-0.4) 07/04/17 12:45 Basophils # (Manual) 0.0 K/mm3 (0.0-0.1) 07/04/17 12:45 Metamyelocytes # 0.0 K/mm3 07/04/17 12:45 Myelocytes # 0.0 K/mm3 07/04/17 12:45 Promyelocytes # 0.0 K/mm3 07/04/17 12:45 Blast Cells # 0.0 K/mm3 07/04/17 12:45 WBC Morphology Not Reportable 07/04/17 12:45 Hypersegmented Neuts Not Reportable 07/04/17 12:45 Hyposegmented Neuts Not Reportable 07/04/17 12:45 Hypogranular Neuts Not Reportable 07/04/17 12:45 Smudge Cells Not Reportable 07/04/17 12:45 Toxic Granulation Not Reportable 07/04/17 12:45 Toxic Vacuolation Not Reportable 07/04/17 12:45 Dohle Bodies Not Reportable 07/04/17 12:45 Pelger-Huet Anomaly Not Reportable 07/04/17 12:45 Deyanira Rods Not Reportable 07/04/17 12:45 Platelet Estimate Appears normal 07/04/17 12:45 Clumped Platelets Not Reportable 07/04/17 12:45 Plt Clumps, EDTA Not Reportable 07/04/17 12:45 Large Platelets Not Reportable 07/04/17 12:45 Giant Platelets Not Reportable 07/04/17 12:45 Platelet Satelliting Not Reportable 07/04/17 12:45 Plt Morphology Comment Not Reportable 07/04/17 12:45 RBC Morphology Not Reportable 07/04/17 12:45 Dimorphic RBCs Not Reportable 07/04/17 12:45 Polychromasia Not Reportable 07/04/17 12:45 Hypochromasia Not Reportable 07/04/17 12:45 Poikilocytosis Not Reportable 07/04/17 12:45 Anisocytosis 2+ 07/04/17 12:45 Microcytosis Not Reportable 07/04/17 12:45 Macrocytosis 2+ 07/04/17 12:45 Spherocytes Not Reportable 07/04/17 12:45 Pappenheimer Bodies Not Reportable 07/04/17 12:45 Sickle Cells Not Reportable 07/04/17 12:45 Target Cells Not Reportable 07/04/17 12:45 Tear Drop Cells Not Reportable 07/04/17 12:45 Ovalocytes Not Reportable 07/04/17 12:45 Helmet Cells Not Reportable 07/04/17 12:45 Hernandez-Denison Bodies Not Reportable 07/04/17 12:45 Fulda Rings Not Reportable 07/04/17 12:45 Shawn Cells Not Reportable 07/04/17 12:45 Bite Cells Not Reportable 07/04/17 12:45 Crenated Cell Not Reportable 07/04/17 12:45 Elliptocytes Not Reportable 07/04/17 12:45 Acanthocytes (Spur) Not Reportable 07/04/17 12:45 Rouleaux Not Reportable 07/04/17 12:45 Hemoglobin C Crystals Not Reportable 07/04/17 12:45 Schistocytes Not Reportable 07/04/17 12:45 Malaria parasites Not Reportable 07/04/17 12:45 Andrei Bodies Not Reportable 07/04/17 12:45 Hem Pathologist Commnt No 07/04/17 12:45 PT 16.3 Sec. (12.2-14.9) H 07/04/17 11:31 INR 1.25 (0.87-1.13) H 07/04/17 11:31 APTT 25.3 Sec. (24.2-36.6) 07/04/17 11:31 POC ABG pH 7.231 (7.35-7.45) L 07/05/17 23:59 POC ABG pCO2 33.4 (35-45) L 07/05/17 23:59 POC ABG pO2 149 (80-105) H 07/05/17 23:59 POC ABG HCO3 14.0 07/05/17 23:59 POC ABG Total CO2 15 07/05/17 23:59 POC ABG O2 Sat 99 07/05/17 23:59 POC ABG Base Excess -14 07/05/17 23:59 VBG pH 6.816 (7.320-7.420) L* 07/04/17 11:25 FiO2 30 % 07/05/17 23:59 Sodium 139 mmol/L (137-145) 07/06/17 03:04 Potassium 3.9 mmol/L (3.6-5.0) D 07/06/17 03:04 Chloride 110.7 mmol/L (98-107) H 07/06/17 03:04 Carbon Dioxide 13 mmol/L (22-30) L 07/06/17 03:04 Anion Gap 19 mmol/L 07/06/17 03:04 BUN 29 mg/dL (9-20) H 07/06/17 03:04 Creatinine 2.7 mg/dL (0.8-1.5) H D 07/06/17 03:04 Estimated GFR 26 ml/min 07/06/17 03:04 BUN/Creatinine Ratio 11 % 07/06/17 03:04 Glucose 96 mg/dL (75-100) 07/06/17 03:04 POC Glucose 99 (70-105) 07/06/17 11:24 Lactic Acid 3.20 mmol/L (0.7-2.0) H* 07/04/17 14:28 Calcium 6.4 mg/dL (8.4-10.2) L 07/06/17 03:04 Phosphorus 2.00 mg/dL (2.5-4.5) L 07/06/17 03:04 Magnesium 1.40 mg/dL (1.7-2.3) L 07/06/17 03:04 Total Bilirubin < 0.20 mg/dL (0.1-1.2) 07/04/17 11:25 AST 50 units/L (5-40) H 07/04/17 11:25 ALT 69 units/L (7-56) H 07/04/17 11:25 Alkaline Phosphatase 266 units/L (35-129) H 07/04/17 11:25 Total Protein 6.4 g/dL (6.3-8.2) 07/04/17 11:25 Albumin 3.2 g/dL (3.9-5) L 07/04/17 11:25 Albumin/Globulin Ratio 1.0 % 07/04/17 11:25 TSH 1.810 mlU/mL (0.270-4.200) 07/04/17 11:25 Urine Color Yellow (Yellow) 07/04/17 12:38 Urine Turbidity Clear (Clear) 07/04/17 12:38 Urine pH 5.0 (5.0-7.0) 07/04/17 12:38 Ur Specific [place] 1.022 (1.003-1.030) 07/04/17 12:38 Urine Protein <15 mg/dl mg/dL (Negative) 07/04/17 12:38 Urine Glucose (UA) >=500 mg/dL (Negative) 07/04/17 12:38 Urine Ketones 20 mg/dL (Negative) 07/04/17 12:38 Urine Blood Sm (Negative) 07/04/17 12:38 Urine Nitrite Neg (Negative) 07/04/17 12:38 Urine Bilirubin Neg (Negative) 07/04/17 12:38 Urine Urobilinogen < 2.0 mg/dL (<2.0) 07/04/17 12:38 Ur Leukocyte Esterase Neg (Negative) 07/04/17 12:38 Urine WBC (Auto) 11.0 /HPF (0.0-6.0) H 07/04/17 12:38 Urine RBC (Auto) 3.0 /HPF (0.0-6.0) 07/04/17 12:38 U Epithel Cells (Auto) < 1.0 /HPF (0-13.0) 07/04/17 12:38 Urine Bacteria (Auto) 1+ /HPF (Negative) 07/04/17 12:38 Urine Mucus Few /HPF 07/04/17 12:38 Salicylates < 0.3 mg/dL (2.8-20.0) L 07/04/17 11:25 Urine Opiates Screen Presumptive negative 07/04/17 12:38 Urine Methadone Screen Presumptive negative 07/04/17 12:38 Acetaminophen < 15.0 ug/mL (10.0-30.0) 07/04/17 11:25 Ur Barbiturates Screen Presumptive negative 07/04/17 12:38 Ur Phencyclidine Scrn Presumptive negative 07/04/17 12:38 Ur Amphetamines Screen Presumptive positive 07/04/17 12:38 U Benzodiazepines Scrn Presumptive negative 07/04/17 12:38 Urine Cocaine Screen Presumptive negative 07/04/17 12:38 U Marijuana (THC) Screen Presumptive negative 07/04/17 12:38 Drugs of Abuse Note Disclamer 07/04/17 12:38 Plasma/Serum Alcohol < 0.01 gm% (0-0.07) 07/04/17 11:25
[2017-07-07] MEDS: NOVOLOG SUB-Q SCH ×3 (02:00→19:29)
[2017-07-07] MEDS: PEPCID IV SCH ×3 (02:12→21:02)
[2017-07-07] MEDS: ATIVAN IV PRN ×3 (02:12→19:51)
[2017-07-07] MEDS: XANAX PO SCH ×3 (02:12→21:10)
[2017-07-07] MEDS: HALDOL IM PRN (07:49)
[2017-07-07] MEDS: REGLAN PO SCH ×3 (08:02→20:58)
[2017-07-07] MEDS ORDERED: DUONEB *Not for PRN Use IH ONE (09:54)
[2017-07-07] MEDS ORDERED: DUONEB *Not for PRN Use IH (09:57)
[2017-07-07] MEDS ORDERED: PROVENTIL IH PRN (10:16)
[2017-07-07 10:51] LABS: ISTAT Base Excess -28; ISTAT DEVICE 0; ISTAT HCO3 3.1; ISTAT PCO2 11.9 (35-45); ISTAT PH 7.028 (7.35-7.45); ISTAT PO2 129 (80-105); ISTAT SO2 97; ISTAT TCO2 < 5
[2017-07-07] MEDS ORDERED: SODIUM BICARBONATE IV ONE ×4 (10:53→15:17)
--- NOTE | 2017-07-07 11:02 | Progress Note ---
Assessment and Plan Assessment and plan: Patient is a 42-year-old man with h/o IDDM, diabetic ketoacidosis and drug abuse , patient brought to the hospital by EMS for altered mental status. Patient found unresponsive in a local hotel, for uncertain duration of time, uncertain mechanism, with evidence of drug paraphernalia. As per EMS, patient initially hypotensive, hypothermic, hyperglycemic, and hypoxic in the field. EMS further reported that they gave 2 mg of Narcan in the field, which somewhat improved the patient's mental status. Upon arrival to the ER, the patient was altered, combative, pulling at his leads/monitor, trying to get out of the stretcher, trying to pull out his IV. Patient was clearly a danger to himself and other patients; therefore, he was intubated. Now extubated 07/06/17 - SIRS, poa and No Sepsis without a source - DKA (diabetic ketoacidoses), resolved, with episdoes of hypoglycemia: stop long acting insulin, until pt is eating better - Acute toxic metabolic encephalopathy due to amphetamine - Metabolic acidosis, due to DKA - Acute respiratory failure, extubated 07/06/17 Supplemental oxygen, nebs, wean vent as tolerated, daily SBT, pulmonary consulted, wean vent as tolerated, wean sedation and attempt extubation - Amphetamine Abuse: counseling attempted -DVT prophylaxis: scd, stop heparin due to drop in plt Tachypneic and altered, so I ordered stat abg, pt is acidotic, d/w dr. Martel, give hco3 and transfer back to icu. CCT 32 minutes History Interval history: Patient was seen and examined. Follow-up on current diagnosis/ams which is still present and not eating, breathing fast. Imaging, nursing note, chart, labs and old chart reviewed. Hospitalist Physical - Physical exam Narrative exam: GEN: ill appearing, mild increase accessory muscle, 97% room air, tachypneic, confused HEENT: NCAT, EOMI, PERRL, OP Clear NECK: supple, no adenopathy, no thyromegaly, no JVD CVS/HEART: regular tachy, NORMAL S1S2, NO JVD, pulses present bilaterally CHEST/LUNGS: CTA B, Symmetrical chest expansion, good air entry bilaterally GI/Abdomen: soft, NTND, good bowel sounds, no guarding or rebound /Bladder: no suprapubic tenderness, no CVA or paraspinal tenderness EXT/Skin: no c/c/e, no obvious rash MSK: FROM x 4 Neuro: CN 2-12 grossly intact, doesn't follow commands Psych: calm - Constitutional Vitals: Temp Pulse Resp BP Pulse Ox 98.0 F 80 42 H 126/71 100 07/07/17 07:35 07/07/17 10:46 07/07/17 10:46 07/07/17 07:35 07/07/17 07:35 General appearance: Present: no acute distress. Absent: other Results - Labs CBC & Chem 7: 07/06/17 03:04 07/06/17 03:04 Labs: Laboratory Last Values WBC 11.9 K/mm3 (4.5-11.0) H 07/06/17 03:04 RBC 3.43 M/mm3 (3.65-5.03) L 07/06/17 03:04 Hgb 9.9 gm/dl (11.8-15.2) L 07/06/17 03:04 Hct 32.9 % (35.5-45.6) L 07/06/17 03:04 MCV 87 fl (84-94) 07/06/17 03:04 MCH 29 pg (28-32) 07/06/17 03:04 MCHC 33 % (32-34) 07/06/17 03:04 RDW 15.7 % (13.2-15.2) H 07/06/17 03:04 Plt Count 123 K/mm3 (140-440) L 07/06/17 03:04 Add Manual Diff Complete 07/04/17 12:45 Total Counted 100 07/04/17 12:45 Seg Neuts % (Manual) 89.0 % (40.0-70.0) H 07/04/17 12:45 Band Neutrophils % 4.0 % 07/04/17 12:45 Lymphocytes % (Manual) 2.0 % (13.4-35.0) L 07/04/17 12:45 Reactive Lymphs % (Man) 0 % 07/04/17 12:45 Monocytes % (Manual) 5.0 % (0.0-7.3) 07/04/17 12:45 Eosinophils % (Manual) 0 % (0.0-4.3) 07/04/17 12:45 Basophils % (Manual) 0 % (0.0-1.8) 07/04/17 12:45 Metamyelocytes % 0 % 07/04/17 12:45 Myelocytes % 0 % 07/04/17 12:45 Promyelocytes % 0 % 07/04/17 12:45 Blast Cells % 0 % 07/04/17 12:45 Nucleated RBC % Not Reportable 07/04/17 12:45 Seg Neutrophils # Man 19.0 K/mm3 (1.8-7.7) H 07/04/17 12:45 Band Neutrophils # 0.9 K/mm3 07/04/17 12:45 Lymphocytes # (Manual) 0.4 K/mm3 (1.2-5.4) L 07/04/17 12:45 Abs React Lymphs (Man) 0.0 K/mm3 07/04/17 12:45 Monocytes # (Manual) 1.1 K/mm3 (0.0-0.8) H 07/04/17 12:45 Eosinophils # (Manual) 0.0 K/mm3 (0.0-0.4) 07/04/17 12:45 Basophils # (Manual) 0.0 K/mm3 (0.0-0.1) 07/04/17 12:45 Metamyelocytes # 0.0 K/mm3 07/04/17 12:45 Myelocytes # 0.0 K/mm3 07/04/17 12:45 Promyelocytes # 0.0 K/mm3 07/04/17 12:45 Blast Cells # 0.0 K/mm3 07/04/17 12:45 WBC Morphology Not Reportable 07/04/17 12:45 Hypersegmented Neuts Not Reportable 07/04/17 12:45 Hyposegmented Neuts Not Reportable 07/04/17 12:45 Hypogranular Neuts Not Reportable 07/04/17 12:45 Smudge Cells Not Reportable 07/04/17 12:45 Toxic Granulation Not Reportable 07/04/17 12:45 Toxic Vacuolation Not Reportable 07/04/17 12:45 Dohle Bodies Not Reportable 07/04/17 12:45 Pelger-Huet Anomaly Not Reportable 07/04/17 12:45 Deyanira Rods Not Reportable 07/04/17 12:45 Platelet Estimate Appears normal 07/04/17 12:45 Clumped Platelets Not Reportable 07/04/17 12:45 Plt Clumps, EDTA Not Reportable 07/04/17 12:45 Large Platelets Not Reportable 07/04/17 12:45 Giant Platelets Not Reportable 07/04/17 12:45 Platelet Satelliting Not Reportable 07/04/17 12:45 Plt Morphology Comment Not Reportable 07/04/17 12:45 RBC Morphology Not Reportable 07/04/17 12:45 Dimorphic RBCs Not Reportable 07/04/17 12:45 Polychromasia Not Reportable 07/04/17 12:45 Hypochromasia Not Reportable 07/04/17 12:45 Poikilocytosis Not Reportable 07/04/17 12:45 Anisocytosis 2+ 07/04/17 12:45 Microcytosis Not Reportable 07/04/17 12:45 Macrocytosis 2+ 07/04/17 12:45 Spherocytes Not Reportable 07/04/17 12:45 Pappenheimer Bodies Not Reportable 07/04/17 12:45 Sickle Cells Not Reportable 07/04/17 12:45 Target Cells Not Reportable 07/04/17 12:45 Tear Drop Cells Not Reportable 07/04/17 12:45 Ovalocytes Not Reportable 07/04/17 12:45 Helmet Cells Not Reportable 07/04/17 12:45 Hernandez-[place] Bodies Not Reportable 07/04/17 12:45 [place] Rings Not Reportable 07/04/17 12:45 Shawn Cells Not Reportable 07/04/17 12:45 Bite Cells Not Reportable 07/04/17 12:45 Crenated Cell Not Reportable 07/04/17 12:45 Elliptocytes Not Reportable 07/04/17 12:45 Acanthocytes (Spur) Not Reportable 07/04/17 12:45 Rouleaux Not Reportable 07/04/17 12:45 Hemoglobin C Crystals Not Reportable 07/04/17 12:45 Schistocytes Not Reportable 07/04/17 12:45 Malaria parasites Not Reportable 07/04/17 12:45 Andrei Bodies Not Reportable 07/04/17 12:45 Hem Pathologist Commnt No 07/04/17 12:45 PT 16.3 Sec. (12.2-14.9) H 07/04/17 11:31 INR 1.25 (0.87-1.13) H 07/04/17 11:31 APTT 25.3 Sec. (24.2-36.6) 07/04/17 11:31 POC ABG pH 7.028 (7.35-7.45) L 07/07/17 10:29 POC ABG pCO2 11.9 (35-45) L 07/07/17 10: POC ABG pO2 129 (80-105) H 07/07/17 10:29 POC ABG HCO3 3.1 07/07/17 10: POC ABG Total CO2 < 5 07/07/17 10: POC ABG O2 Sat 97 07/07/17 10: POC ABG Base Excess -28 07/07/17 10:29 VBG pH 6.816 (7.320-7.420) L* 07/04/17 11:25 FiO2 21 % 07/07/17 10:29 Sodium 139 mmol/L (137-145) 07/06/17 03:04 Potassium 3.9 mmol/L (3.6-5.0) D 07/06/17 03:04 Chloride 110.7 mmol/L (98-107) H 07/06/17 03:04 Carbon Dioxide 13 mmol/L (22-30) L 07/06/17 03:04 Anion Gap 19 mmol/L 07/06/17 03:04 BUN 29 mg/dL (9-20) H 07/06/17 03:04 Creatinine 2.7 mg/dL (0.8-1.5) H D 07/06/17 03:04 Estimated GFR 26 ml/min 07/06/17 03:04 BUN/Creatinine Ratio 11 % 07/06/17 03:04 Glucose 96 mg/dL (75-100) 07/06/17 03:04 POC Glucose 248 (70-105) H 07/07/17 10:45 Lactic Acid 3.20 mmol/L (0.7-2.0) H* 07/04/17 14:28 Calcium 6.4 mg/dL (8.4-10.2) L 07/06/17 03:04 Phosphorus 2.00 mg/dL (2.5-4.5) L 07/06/17 03:04 Magnesium 1.40 mg/dL (1.7-2.3) L 07/06/17 03:04 Total Bilirubin < 0.20 mg/dL (0.1-1.2) 07/04/17 11:25 AST 50 units/L (5-40) H 07/04/17 11:25 ALT 69 units/L (7-56) H 07/04/17 11:25 Alkaline Phosphatase 266 units/L (35-129) H 07/04/17 11:25 Total Protein 6.4 g/dL (6.3-8.2) 07/04/17 11:25 Albumin 3.2 g/dL (3.9-5) L 07/04/17 11:25 Albumin/Globulin Ratio 1.0 % 07/04/17 11:25 TSH 1.810 mlU/mL (0.270-4.200) 07/04/17 11:25 Urine Color Yellow (Yellow) 07/04/17 12:38 Urine Turbidity Clear (Clear) 07/04/17 12:38 Urine pH 5.0 (5.0-7.0) 07/04/17 12:38 Ur Specific [place] 1.022 (1.003-1.030) 07/04/17 12:38 Urine Protein <15 mg/dl mg/dL (Negative) 07/04/17 12:38 Urine Glucose (UA) >=500 mg/dL (Negative) 07/04/17 12:38 Urine Ketones 20 mg/dL (Negative) 07/04/17 12:38 Urine Blood Sm (Negative) 07/04/17 12:38 Urine Nitrite Neg (Negative) 07/04/17 12:38 Urine Bilirubin Neg (Negative) 07/04/17 12:38 Urine Urobilinogen < 2.0 mg/dL (<2.0) 07/04/17 12:38 Ur Leukocyte Esterase Neg (Negative) 07/04/17 12:38 Urine WBC (Auto) 11.0 /HPF (0.0-6.0) H 07/04/17 12:38 Urine RBC (Auto) 3.0 /HPF (0.0-6.0) 07/04/17 12:38 U Epithel Cells (Auto) < 1.0 /HPF (0-13.0) 07/04/17 12:38 Urine Bacteria (Auto) 1+ /HPF (Negative) 07/04/17 12:38 Urine Mucus Few /HPF 07/04/17 12:38 Salicylates < 0.3 mg/dL (2.8-20.0) L 07/04/17 11:25 Urine Opiates Screen Presumptive negative 07/04/17 12:38 Urine Methadone Screen Presumptive negative 07/04/17 12:38 Acetaminophen < 15.0 ug/mL (10.0-30.0) 07/04/17 11:25 Ur Barbiturates Screen Presumptive negative 07/04/17 12:38 Ur Phencyclidine Scrn Presumptive negative 07/04/17 12:38 Ur Amphetamines Screen Presumptive positive 07/04/17 12:38 U Benzodiazepines Scrn Presumptive negative 07/04/17 12:38 Urine Cocaine Screen Presumptive negative 07/04/17 12:38 U Marijuana (THC) Screen Presumptive negative 07/04/17 12:38 Drugs of Abuse Note Disclamer 07/04/17 12:38 Plasma/Serum Alcohol < 0.01 gm% (0-0.07) 07/04/17 11:25
[2017-07-07 11:45] LABS: Chloride 106.4 mmol/L (98-107)
[2017-07-07 12:21] LABS: Potassium 5.4 mmol/L (3.6-5.0)
[2017-07-07] MEDS ORDERED: D50W (25GM) Syringe IV PRN (12:45)
[2017-07-07] MEDS ORDERED: NACL 0.9% 1000 ML 1,000 ML IV ONE (13:00)
[2017-07-07] MEDS ORDERED: SODIUM BICARBONATE 100 MEQ in NACL 0.9% 1000 ML 1,000 ML IV STA (13:21)
[2017-07-07 13:42] LABS: Calcium 7.1 mg/dL (8.4-10.2); Chloride 108.2 mmol/L (98-107); Magnesium 1.8 mg/dL (1.7-2.3); Phosphorous 4.6 mg/dL (2.5-4.5)
[2017-07-07] MEDS ORDERED: SODIUM BICARBONATE IV STA (13:59)
[2017-07-07] MEDS ORDERED: KCL 10MEQ/100ML 10 MEQ/100 ML BAG IV PRN (14:00)
[2017-07-07] MEDS ORDERED: KCL 20MEQ/100ML 20 MEQ/100 ML BAG IV PRN (14:00)
[2017-07-07] MEDS ORDERED: NovoLIN R 100 UNITS in NACL 0.9% 99 ML IV SCH (14:00)
[2017-07-07] MEDS: D5W/0.45% NACL/KCL 20 MEQ 20 MEQ/1,000 ML BAG IV SCH ×2 (14:24→21:02)
[2017-07-07 15:17] LABS: Calcium 6.9 mg/dL (8.4-10.2); Chloride 107.4 mmol/L (98-107); Potassium 5.4 mmol/L (3.6-5.0)
[2017-07-07] MEDS ORDERED: SODIUM BICARBONATE IV SCH (16:00)
[2017-07-07 18:03] LABS: Calcium 6.7 mg/dL (8.4-10.2); Chloride 110.2 mmol/L (98-107); Potassium 4.4 mmol/L (3.6-5.0)
[2017-07-07 19:59] LABS: Chloride 112.3 mmol/L (98-107); Potassium 4.3 mmol/L (3.6-5.0)
[2017-07-08 00:13] LABS: Calcium 7.1 mg/dL (8.4-10.2); Chloride 111.8 mmol/L (98-107); Potassium 4.3 mmol/L (3.6-5.0)
[2017-07-08] MEDS: ATIVAN IV PRN ×4 (01:06→21:11)
[2017-07-08] MEDS: D50W (25GM) Vial IV PRN ×3 (01:06→23:55)
[2017-07-08] MEDS: D5W/0.45% NACL/KCL 20 MEQ 20 MEQ/1,000 ML BAG IV SCH (04:57)
[2017-07-08 05:34] LABS: Chloride 113.1 mmol/L (98-107); Potassium 4.5 mmol/L (3.6-5.0)
[2017-07-08] MEDS: REGLAN PO SCH ×3 (09:07→20:25)
[2017-07-08] MEDS: PEPCID IV SCH ×2 (10:45→21:11)
--- NOTE | 2017-07-08 13:20 | Progress Note ---
Assessment and Plan Assessment and plan: Patient is a 42-year-old man with h/o IDDM, diabetic ketoacidosis and drug abuse , patient brought to the hospital by EMS for altered mental status. Patient found unresponsive in a local hotel, for uncertain duration of time, uncertain mechanism, with evidence of drug paraphernalia. As per EMS, patient initially hypotensive, hypothermic, hyperglycemic, and hypoxic in the field. EMS further reported that they gave 2 mg of Narcan in the field, which somewhat improved the patient's mental status. Upon arrival to the ER, the patient was altered, combative, pulling at his leads/monitor, trying to get out of the stretcher, trying to pull out his IV. Patient was clearly a danger to himself and other patients; therefore, he was intubated. Extubated 07/06/17 - SIRS, poa and No Sepsis without a source - DKA (diabetic ketoacidoses), resolved, with episdoes of hypoglycemia: stop long acting insulin, until pt is eating better - Acute toxic metabolic encephalopathy due to amphetamine - Metabolic acidosis, due to DKA - Acute respiratory failure, extubated 07/06/17 Supplemental oxygen, nebs, wean vent as tolerated, daily SBT, pulmonary consulted, wean vent as tolerated, wean sedation and attempt extubation - Amphetamine Abuse: supportative care -DVT prophylaxis: scd, stop heparin due to drop in plt -ARF, vasomotor nephropathy: consult renal, give more volume, 1 liter nss bolus x 1 Continue insulin drip Consulted Nephrology for ARF Ordered renal ultrasound repeat bmp am consulted Intensvist The high probability of a clinically significant, sudden or life threatening deterioration of the [neurologic,cardiac] system(s) required my full and direct attention, intervention and personal management. The aggregate critical care time was [ 31 ] minutes. This time is in addition to time spent performing reported procedures but includes the following: [x] Data Review and interpretation [x] Patient assessment and monitoring of vital signs [x] Documentation [x] Medication orders and management History Interval history: Patient was seen and examined. Follow-up on current diagnosis/ams which is still present and not eating, breathing fast. Imaging, nursing note, chart, labs and old chart reviewed. Hospitalist Physical - Physical exam Narrative exam: GEN: ill appearing, nad, confused HEENT: NCAT, EOMI, PERRL, OP Clear NECK: supple, no adenopathy, no thyromegaly, no JVD CVS/HEART: regular tachy, NORMAL S1S2, NO JVD, pulses present bilaterally CHEST/LUNGS: CTA B, Symmetrical chest expansion, good air entry bilaterally GI/Abdomen: soft, NTND, good bowel sounds, no guarding or rebound /Bladder: no suprapubic tenderness, no CVA or paraspinal tenderness EXT/Skin: no c/c/e, no obvious rash MSK: FROM x 4 Neuro: CN 2-12 grossly intact, doesn't follow commands Psych: calm - Constitutional Vitals: Temp Pulse Resp BP Pulse Ox 98.1 F 100 H 32 H 119/80 99 07/08/17 11:31 07/08/17 10:51 07/08/17 10:51 07/08/17 10:51 07/08/17 10:51 General appearance: Present: no acute distress. Absent: other Results - Labs CBC & Chem 7: 07/06/17 03:04 07/08/17 04:45 Labs: Laboratory Last Values WBC 11.9 K/mm3 (4.5-11.0) H 07/06/17 03:04 RBC 3.43 M/mm3 (3.65-5.03) L 07/06/17 03:04 Hgb 9.9 gm/dl (11.8-15.2) L 07/06/17 03:04 Hct 32.9 % (35.5-45.6) L 07/06/17 03:04 MCV 87 fl (84-94) 07/06/17 03:04 MCH 29 pg (28-32) 07/06/17 03:04 MCHC 33 % (32-34) 07/06/17 03:04 RDW 15.7 % (13.2-15.2) H 07/06/17 03:04 Plt Count 123 K/mm3 (140-440) L 07/06/17 03:04 Add Manual Diff Complete 07/04/17 12:45 Total Counted 100 07/04/17 12:45 Seg Neuts % (Manual) 89.0 % (40.0-70.0) H 07/04/17 12:45 Band Neutrophils % 4.0 % 07/04/17 12:45 Lymphocytes % (Manual) 2.0 % (13.4-35.0) L 07/04/17 12:45 Reactive Lymphs % (Man) 0 % 07/04/17 12:45 Monocytes % (Manual) 5.0 % (0.0-7.3) 07/04/17 12:45 Eosinophils % (Manual) 0 % (0.0-4.3) 07/04/17 12:45 Basophils % (Manual) 0 % (0.0-1.8) 07/04/17 12:45 Metamyelocytes % 0 % 07/04/17 12:45 Myelocytes % 0 % 07/04/17 12:45 Promyelocytes % 0 % 07/04/17 12:45 Blast Cells % 0 % 07/04/17 12:45 Nucleated RBC % Not Reportable 07/04/17 12:45 Seg Neutrophils # Man 19.0 K/mm3 (1.8-7.7) H 07/04/17 12:45 Band Neutrophils # 0.9 K/mm3 07/04/17 12:45 Lymphocytes # (Manual) 0.4 K/mm3 (1.2-5.4) L 07/04/17 12:45 Abs React Lymphs (Man) 0.0 K/mm3 07/04/17 12:45 Monocytes # (Manual) 1.1 K/mm3 (0.0-0.8) H 07/04/17 12:45 Eosinophils # (Manual) 0.0 K/mm3 (0.0-0.4) 07/04/17 12:45 Basophils # (Manual) 0.0 K/mm3 (0.0-0.1) 07/04/17 12:45 Metamyelocytes # 0.0 K/mm3 07/04/17 12:45 Myelocytes # 0.0 K/mm3 07/04/17 12:45 Promyelocytes # 0.0 K/mm3 07/04/17 12:45 Blast Cells # 0.0 K/mm3 07/04/17 12:45 WBC Morphology Not Reportable 07/04/17 12:45 Hypersegmented Neuts Not Reportable 07/04/17 12:45 Hyposegmented Neuts Not Reportable 07/04/17 12:45 Hypogranular Neuts Not Reportable 07/04/17 12:45 Smudge Cells Not Reportable 07/04/17 12:45 Toxic Granulation Not Reportable 07/04/17 12:45 Toxic Vacuolation Not Reportable 07/04/17 12:45 Dohle Bodies Not Reportable 07/04/17 12:45 Pelger-Huet Anomaly Not Reportable 07/04/17 12:45 Deyanira Rods Not Reportable 07/04/17 12:45 Platelet Estimate Appears normal 07/04/17 12:45 Clumped Platelets Not Reportable 07/04/17 12:45 Plt Clumps, EDTA Not Reportable 07/04/17 12:45 Large Platelets Not Reportable 07/04/17 12:45 Giant Platelets Not Reportable 07/04/17 12:45 Platelet Satelliting Not Reportable 07/04/17 12:45 Plt Morphology Comment Not Reportable 07/04/17 12:45 RBC Morphology Not Reportable 07/04/17 12:45 Dimorphic RBCs Not Reportable 07/04/17 12:45 Polychromasia Not Reportable 07/04/17 12:45 Hypochromasia Not Reportable 07/04/17 12:45 Poikilocytosis Not Reportable 07/04/17 12:45 Anisocytosis 2+ 07/04/17 12:45 Microcytosis Not Reportable 07/04/17 12:45 Macrocytosis 2+ 07/04/17 12:45 Spherocytes Not Reportable 07/04/17 12:45 Pappenheimer Bodies Not Reportable 07/04/17 12:45 Sickle Cells Not Reportable 07/04/17 12:45 Target Cells Not Reportable 07/04/17 12:45 Tear Drop Cells Not Reportable 07/04/17 12:45 Ovalocytes Not Reportable 07/04/17 12:45 Helmet Cells Not Reportable 07/04/17 12:45 Hernandez-[place] Bodies Not Reportable 07/04/17 12:45 [place] Rings Not Reportable 07/04/17 12:45 Shawn Cells Not Reportable 07/04/17 12:45 Bite Cells Not Reportable 07/04/17 12:45 Crenated Cell Not Reportable 07/04/17 12:45 Elliptocytes Not Reportable 07/04/17 12:45 Acanthocytes (Spur) Not Reportable 07/04/17 12:45 Rouleaux Not Reportable 07/04/17 12:45 Hemoglobin C Crystals Not Reportable 07/04/17 12:45 Schistocytes Not Reportable 07/04/17 12:45 Malaria parasites Not Reportable 07/04/17 12:45 Andrei Bodies Not Reportable 07/04/17 12:45 Hem Pathologist Commnt No 07/04/17 12:45 PT 16.3 Sec. (12.2-14.9) H 07/04/17 11:31 INR 1.25 (0.87-1.13) H 07/04/17 11:31 APTT 25.3 Sec. (24.2-36.6) 07/04/17 11:31 POC ABG pH 7.028 (7.35-7.45) L 07/07/17 10:29 POC ABG pCO2 11.9 (35-45) L 07/07/17 10:29 POC ABG pO2 129 (80-105) H 07/07/17 10:29 POC ABG HCO3 3.1 07/07/17 10:29 POC ABG Total CO2 < 5 07/07/17 10:29 POC ABG O2 Sat 97 07/07/17 10:29 POC ABG Base Excess -28 07/07/17 10:29 VBG pH 7.269 (7.320-7.420) L 07/07/17 16:13 FiO2 21 % 07/07/17 10:29 Sodium 144 mmol/L (137-145) 07/08/17 04:45 Potassium 4.5 mmol/L (3.6-5.0) 07/08/17 04:45 Chloride 113.1 mmol/L (98-107) H 07/08/17 04:45 Carbon Dioxide 13 mmol/L (22-30) L 07/08/17 04:45 Anion Gap 22 mmol/L 07/08/17 04:45 BUN 46 mg/dL (9-20) H 07/08/17 04:45 Creatinine 5.4 mg/dL (0.8-1.5) H 07/08/17 04:45 Estimated GFR 12 ml/min 07/08/17 04:45 BUN/Creatinine Ratio 9 % 07/08/17 04:45 Glucose 86 mg/dL (75-100) 07/08/17 04:45 POC Glucose 94 (70-105) 07/08/17 12:20 Lactic Acid 3.20 mmol/L (0.7-2.0) H* 07/04/17 14:28 Calcium 7.0 mg/dL (8.4-10.2) L 07/08/17 04:45 Phosphorus 4.60 mg/dL (2.5-4.5) H D 07/07/17 13:10 Magnesium 1.80 mg/dL (1.7-2.3) 07/07/17 13:10 Total Bilirubin < 0.20 mg/dL (0.1-1.2) 07/04/17 11:25 AST 50 units/L (5-40) H 07/04/17 11:25 ALT 69 units/L (7-56) H 07/04/17 11:25 Alkaline Phosphatase 266 units/L (35-129) H 07/04/17 11:25 Total Protein 6.4 g/dL (6.3-8.2) 07/04/17 11:25 Albumin 3.2 g/dL (3.9-5) L 07/04/17 11:25 Albumin/Globulin Ratio 1.0 % 07/04/17 11:25 TSH 1.810 mlU/mL (0.270-4.200) 07/04/17 11:25 Urine Color Yellow (Yellow) 07/04/17 12:38 Urine Turbidity Clear (Clear) 07/04/17 12:38 Urine pH 5.0 (5.0-7.0) 07/04/17 12:38 Ur Specific [place] 1.022 (1.003-1.030) 07/04/17 12:38 Urine Protein <15 mg/dl mg/dL (Negative) 07/04/17 12:38 Urine Glucose (UA) >=500 mg/dL (Negative) 07/04/17 12:38 Urine Ketones 20 mg/dL (Negative) 07/04/17 12:38 Urine Blood Sm (Negative) 07/04/17 12:38 Urine Nitrite Neg (Negative) 07/04/17 12:38 Urine Bilirubin Neg (Negative) 07/04/17 12:38 Urine Urobilinogen < 2.0 mg/dL (<2.0) 07/04/17 12:38 Ur Leukocyte Esterase Neg (Negative) 07/04/17 12:38 Urine WBC (Auto) 11.0 /HPF (0.0-6.0) H 07/04/17 12:38 Urine RBC (Auto) 3.0 /HPF (0.0-6.0) 07/04/17 12:38 U Epithel Cells (Auto) < 1.0 /HPF (0-13.0) 07/04/17 12:38 Urine Bacteria (Auto) 1+ /HPF (Negative) 07/04/17 12:38 Urine Mucus Few /HPF 07/04/17 12:38 Salicylates < 0.3 mg/dL (2.8-20.0) L 07/04/17 11:25 Urine Opiates Screen Presumptive negative 07/04/17 12:38 Urine Methadone Screen Presumptive negative 07/04/17 12:38 Acetaminophen < 15.0 ug/mL (10.0-30.0) 07/04/17 11:25 Ur Barbiturates Screen Presumptive negative 07/04/17 12:38 Ur Phencyclidine Scrn Presumptive negative 07/04/17 12:38 Ur Amphetamines Screen Presumptive positive 07/04/17 12:38 U Benzodiazepines Scrn Presumptive negative 07/04/17 12:38 Urine Cocaine Screen Presumptive negative 07/04/17 12:38 U Marijuana (THC) Screen Presumptive negative 07/04/17 12:38 Drugs of Abuse Note Disclamer 07/04/17 12:38 Plasma/Serum Alcohol < 0.01 gm% (0-0.07) 07/04/17 11:25
[2017-07-08] MEDS ORDERED: NACL 0.9% 500 ML 1,000 ML IV ONE (13:22)
[2017-07-08 13:38] LABS: Calcium 6.5 mg/dL (8.4-10.2); Chloride 109.3 mmol/L (98-107)
[2017-07-08 14:05] LABS: Potassium 6.4 mmol/L (3.6-5.0)
[2017-07-08] MEDS ORDERED: NACL 0.45% 1000 ML 1,000 ML IV SCH (15:00)
--- NOTE | 2017-07-08 15:12 | Progress Note ---
Assessment and Plan Imp: 1. DKA 2. Amphetamine abuse 3. Metabolic encephalopathy 4. Volume depletion 5. Hyperkalemia 6. BRITTANY, worsening 7. Acute respiratory failure, hypoxia Rec: 1. Cont. insulin drip 2. Add dextrose back to IVFs once BG less than 250 again 3. He may drink some water only 4. Renal US, CK, urine sodium, UA, urine culture, prescott 5. K in IVFs stopped; repeat level in a few hours; renal consulted 6. SCDs 7. Prognosis guarded; complex decision-making; no family present Plan of care reviewed w/ patient, he understands/agrees Subjective Date of service: 07/08/17 Principal diagnosis: DKA, hypoxia Interval history: Transferred back to ICU in DKA w/ increased WOB. Required BIPAP, now on 4L NC with improved SOB and WOB. Mentation better today, denies any complaints. Active Medications Albuterol (Proventil) 2.5 mg IH Q4H PRN PRN Reason: Shortness Of Breath Bisacodyl (Dulcolax) 10 mg [place] QDAY PRN PRN Reason: constipation unrelieved by MOM Dextrose (D50w (25gm) Vial) 0 gm IV PRN PRN PRN Reason: Hypoglycemia Last Admin: 07/08/17 01:06 Dose: 5 gm Famotidine (Pepcid) 20 mg IV BID SHELIA Last Admin: 07/08/17 10:45 Dose: 20 mg Haloperidol Lactate (Haldol) 5 mg IV Q6H PRN PRN Reason: Agitation Hydrophilic Ointment (Vaseline Lip Therapy) 1 applic TP Q2HR PRN PRN Reason: Dry Lips Potassium Chloride (Kcl 10meq/100ml) 10 meq in 100 mls @ 100 mls/hr IV Q1H PRN PRN Reason: SEE LABEL COMMENTS Potassium Chloride (Kcl 20meq/100ml) 20 meq in 100 mls @ 100 mls/hr IV Q1H PRN PRN Reason: SEE LABEL COMMENTS Insulin Human Regular 100 (units/ Sodium Chloride) 100 mls @ 1 mls/hr IV TITR SHELIA; 1 UNITS/HR PRN Reason: Protocol Last Titration: 07/08/17 13:00 Dose: 1.5 units/hr, 1.5 mls/hr Sodium Chloride (Nacl 0.45% 1000 Ml) 1,000 mls @ 100 mls/hr IV DIRECT SHELIA Lorazepam (Ativan) 2 mg IV Q4H PRN PRN Reason: Agitation Last Admin: 07/08/17 04:56 Dose: 2 mg Magnesium Hydroxide (Milk Of Magnesia) 30 ml PO Q4H PRN PRN Reason: Constipation Metoclopramide HCl (Reglan) 10 mg PO TID SHELIA Last Admin: 07/08/17 14:21 Dose: 10 mg Multi-Ingred Cream/Lotion/Oil/Oint (Artificial Tears Ophth Oint) 1 applic OU Q4HR PRN PRN Reason: Dry Eye(s) Silver Sulfadiazine (Thermazene 50 Gram) 1 applic TP BID [facility] Stop: 07/08/17 23:59 Sodium Bicarbonate (Sodium Bicarbonate) 50 meq IV ONCE SHELIA Stop: 07/08/17 16:01 Last Admin: 07/07/17 15:27 Dose: 50 meq Objective Vital Signs - 12hr 07/08/17 07/08/17 07/08/17 03:10 03:20 03:30 Temperature Pulse Rate 109 H 111 H 109 H Respiratory 16 53 H 16 Rate Blood Pressure 129/69 129/69 129/69 O2 Sat by Pulse 98 99 97 Oximetry 07/08/17 07/08/17 07/08/17 03:40 03:50 03:52 Temperature 98.2 F Pulse Rate 110 H 108 H Respiratory 21 40 H Rate Blood Pressure 129/69 129/69 O2 Sat by Pulse 99 99 Oximetry 07/08/17 07/08/17 07/08/17 04:00 04:10 04:20 Temperature Pulse Rate 109 H 103 H 109 H Respiratory 25 H 33 H 44 H Rate Blood Pressure 139/97 139/97 139/97 O2 Sat by Pulse 100 84 Oximetry 07/08/17 07/08/17 07/08/17 04:30 04:40 04:50 Temperature Pulse Rate 108 H 109 H 106 H Respiratory 46 H 9 L 35 H Rate Blood Pressure 139/97 139/97 139/97 O2 Sat by Pulse 99 100 Oximetry 07/08/17 07/08/17 07/08/17 05:00 05:11 05:21 Temperature Pulse Rate 107 H 106 H 105 H Respiratory 40 H 30 H 35 H Rate Blood Pressure 139/97 145/90 O2 Sat by Pulse 99 99 98 Oximetry 07/08/17 07/08/17 07/08/17 05:31 05:41 05:51 Temperature Pulse Rate 107 H 117 H 116 H Respiratory 34 H 15 19 Rate Blood Pressure 145/90 145/90 145/90 O2 Sat by Pulse 98 98 98 Oximetry 07/08/17 07/08/17 07/08/17 06:01 06:11 06:21 Temperature Pulse Rate 121 H 114 H 115 H Respiratory 49 H 40 H 41 H Rate Blood Pressure 121/70 121/70 121/70 O2 Sat by Pulse 97 99 Oximetry 07/08/17 07/08/17 07/08/17 06:31 06:41 06:51 Temperature Pulse Rate 113 H 117 H 105 H Respiratory 44 H 23 33 H Rate Blood Pressure 121/70 121/70 121/70 O2 Sat by Pulse 97 99 Oximetry 07/08/17 07/08/17 07/08/17 07:00 07:11 07:21 Temperature Pulse Rate 102 H 101 H 98 H Respiratory 32 H 38 H 33 H Rate Blood Pressure 135/86 135/86 135/86 O2 Sat by Pulse 99 99 99 Oximetry 07/08/17 07/08/17 07/08/17 07:31 07:41 07:50 Temperature Pulse Rate 98 H 101 H Respiratory 31 H 28 H Rate Blood Pressure 135/86 135/86 O2 Sat by Pulse 98 97 97 Oximetry 07/08/17 07/08/17 07/08/17 07:51 08:00 08:11 Temperature 99.0 F Pulse Rate 103 H 103 H 98 H Respiratory 27 H 33 H 27 H Rate Blood Pressure 135/86 127/84 127/84 O2 Sat by Pulse 97 98 98 Oximetry 07/08/17 07/08/17 07/08/17 08:21 08:31 08:41 Temperature Pulse Rate 99 H 98 H 99 H Respiratory 27 H 28 H 29 H Rate Blood Pressure 127/84 127/84 127/84 O2 Sat by Pulse 98 98 98 Oximetry 07/08/17 07/08/17 07/08/17 08:51 09:00 09:11 Temperature Pulse Rate 98 H 97 H 97 H Respiratory 28 H 28 H 26 H Rate Blood Pressure 127/84 118/78 118/78 O2 Sat by Pulse 98 98 98 Oximetry 07/08/17 07/08/17 07/08/17 09:21 09:31 09:41 Temperature Pulse Rate 94 H 94 H 93 H Respiratory 28 H 29 H 27 H Rate Blood Pressure 118/78 118/78 118/78 O2 Sat by Pulse 98 99 99 Oximetry 07/08/17 07/08/17 07/08/17 09:51 10:00 10:11 Temperature Pulse Rate 93 H 91 H 95 H Respiratory 25 H 25 H 28 H Rate Blood Pressure 118/78 119/80 119/80 O2 Sat by Pulse 99 99 99 Oximetry 07/08/17 07/08/17 07/08/17 10:21 10:31 10:41 Temperature Pulse Rate 99 H 97 H 96 H Respiratory 30 H 28 H 27 H Rate Blood Pressure 119/80 119/80 119/80 O2 Sat by Pulse 99 99 99 Oximetry 07/08/17 07/08/17 07/08/17 10:51 11:00 11:11 Temperature Pulse Rate 100 H 97 H 105 H Respiratory 32 H 34 H 22 Rate Blood Pressure 119/80 132/92 132/92 O2 Sat by Pulse 99 99 98 Oximetry 07/08/17 07/08/17 07/08/17 11:21 11:31 11:41 Temperature 98.1 F Pulse Rate 101 H 98 H 97 H Respiratory 27 H 36 H 35 H Rate Blood Pressure 132/92 132/92 132/92 O2 Sat by Pulse 99 99 96 Oximetry 07/08/17 07/08/17 07/08/17 11:51 12:00 12:11 Temperature Pulse Rate 103 H 103 H 100 H Respiratory 33 H 21 39 H Rate Blood Pressure 132/92 131/99 132/90 O2 Sat by Pulse 92 78 L 98 Oximetry 07/08/17 07/08/17 07/08/17 12:21 12:31 12:41 Temperature Pulse Rate 100 H 102 H 105 H Respiratory 33 H 31 H 24 Rate Blood Pressure 132/90 132/90 131/99 O2 Sat by Pulse 79 L 100 Oximetry 07/08/17 07/08/17 07/08/17 12:51 13:00 13:11 Temperature Pulse Rate 105 H 102 H Respiratory 30 H 21 31 H Rate Blood Pressure 131/99 133/72 133/72 O2 Sat by Pulse 86 Oximetry 07/08/17 07/08/17 07/08/17 13:21 13:31 13:41 Temperature Pulse Rate 97 H 97 H 98 H Respiratory 19 32 H 31 H Rate Blood Pressure 133/72 133/72 133/72 O2 Sat by Pulse 82 L 80 L 100 Oximetry Constitutional: no acute distress, alert Eyes: non-icteric ENT: oropharynx moist Neck: supple Effort: normal Ascultation: Bilateral: clear Cardiovascular: regular rate and rhythm (no mrg) Gastrointestinal: normoactive bowel sounds, soft, non-tender, non-distended Integumentary: normal Extremities: no cyanosis, no edema, pink and warm Neurologic: normal mental status, non-focal exam, pupils equal and round, CN II- XII normal Psychiatric: mood appropriate, affect normal CBC and BMP: 07/06/17 03:04 07/08/17 13:21 ABG, PT/INR, D-dimer: ABG POC ABG pH 7.028 (7.35-7.45) L 07/07/17 10:29 POC ABG pCO2 11.9 (35-45) L 07/07/17 10:29 POC ABG pO2 129 (80-105) H 07/07/17 10:29 POC ABG HCO3 3.1 07/07/17 10:29 POC ABG Total CO2 < 5 07/07/17 10:29 POC ABG O2 Sat 97 07/07/17 10:29 PT/INR, D-dimer PT 16.3 Sec. (12.2-14.9) H 07/04/17 11:31 INR 1.25 (0.87-1.13) H 07/04/17 11:31 Abnormal lab findings: Abnormal Labs 07/04/17 07/04/17 07/04/17 12:45 12:45 12:45 WBC 21.3 H RBC 3.48 L Hgb 9.9 L Hct MCV 108 H MCHC 26 L RDW 16.3 H Plt Count Seg Neuts % (Manual) 89.0 H Lymphocytes % (Manual) 2.0 L Seg Neutrophils # Man 19.0 H Lymphocytes # (Manual) 0.4 L Monocytes # (Manual) 1.1 H POC ABG pH POC ABG pCO2 POC ABG pO2 VBG pH Sodium 132 L Potassium Chloride 90.9 L Carbon Dioxide 6 L* BUN 31 H Creatinine Glucose 1112 H* POC Glucose Lactic Acid Calcium 7.3 L Phosphorus 8.60 H Magnesium 07/04/17 07/04/17 07/04/17 13:20 14:28 14:28 WBC RBC Hgb Hct MCV MCHC RDW Plt Count Seg Neuts % (Manual) Lymphocytes % (Manual) Seg Neutrophils # Man Lymphocytes # (Manual) Monocytes # (Manual) POC ABG pH 6.743 L POC ABG pCO2 53.9 H POC ABG pO2 259 H VBG pH Sodium 134 L Potassium 5.3 H Chloride 94.5 L Carbon Dioxide 6 L* BUN 31 H Creatinine Glucose 1060 H* POC Glucose Lactic Acid 3.20 H* Calcium 6.8 L Phosphorus Magnesium 07/04/17 07/04/17 07/04/17 15:56 18:00 18:23 WBC RBC Hgb Hct MCV MCHC RDW Plt Count Seg Neuts % (Manual) Lymphocytes % (Manual) Seg Neutrophils # Man Lymphocytes # (Manual) Monocytes # (Manual) POC ABG pH POC ABG pCO2 POC ABG pO2 VBG pH Sodium 133 L Potassium 3.5 L D Chloride 97.1 L Carbon Dioxide 7 L* 5 L* BUN 30 H 28 H Creatinine 1.6 H Glucose 1002 H* 988 H* POC Glucose > 500 H Lactic Acid Calcium 6.7 L 6.1 L Phosphorus Magnesium 07/04/17 07/04/17 07/04/17 20:05 20:29 21:21 WBC RBC Hgb Hct MCV MCHC RDW Plt Count Seg Neuts % (Manual) Lymphocytes % (Manual) Seg Neutrophils # Man Lymphocytes # (Manual) Monocytes # (Manual) POC ABG pH POC ABG pCO2 POC ABG pO2 VBG pH Sodium Potassium 3.3 L Chloride Carbon Dioxide 5 L* BUN 29 H Creatinine 1.8 H Glucose 542 H* POC Glucose 487 H 410 H Lactic Acid Calcium 6.5 L Phosphorus Magnesium 07/04/17 07/04/17 07/05/17 22:42 23:25 00:22 WBC RBC Hgb Hct MCV MCHC RDW Plt Count Seg Neuts % (Manual) Lymphocytes % (Manual) Seg Neutrophils # Man Lymphocytes # (Manual) Monocytes # (Manual) POC ABG pH POC ABG pCO2 POC ABG pO2 VBG pH Sodium Potassium Chloride Carbon Dioxide BUN Creatinine Glucose POC Glucose 360 H 338 H 276 H Lactic Acid Calcium Phosphorus Magnesium 07/05/17 07/05/17 07/05/17 01:23 03:06 04:30 WBC RBC Hgb Hct MCV MCHC RDW Plt Count Seg Neuts % (Manual) Lymphocytes % (Manual) Seg Neutrophils # Man Lymphocytes # (Manual) Monocytes # (Manual) POC ABG pH POC ABG pCO2 POC ABG pO2 VBG pH Sodium Potassium 3.0 L Chloride 118.7 H Carbon Dioxide 15 L D BUN 25 H Creatinine 1.6 H Glucose 63 L POC Glucose 245 H 213 H Lactic Acid Calcium 6.0 L Phosphorus Magnesium 07/05/17 07/05/17 07/05/17 06:04 06:52 08:09 WBC RBC Hgb Hct MCV MCHC RDW Plt Count Seg Neuts % (Manual) Lymphocytes % (Manual) Seg Neutrophils # Man Lymphocytes # (Manual) Monocytes # (Manual) POC ABG pH 7.179 L POC ABG pCO2 POC ABG pO2 263 H VBG pH Sodium Potassium Chloride Carbon Dioxide BUN Creatinine Glucose POC Glucose 159 H 174 H Lactic Acid Calcium Phosphorus Magnesium 07/05/17 07/05/17 07/06/17 17:56 23:59 01:00 WBC RBC Hgb Hct MCV MCHC RDW Plt Count Seg Neuts % (Manual) Lymphocytes % (Manual) Seg Neutrophils # Man Lymphocytes # (Manual) Monocytes # (Manual) POC ABG pH 7.231 L POC ABG pCO2 33.4 L POC ABG pO2 149 H VBG pH Sodium Potassium Chloride Carbon Dioxide BUN Creatinine Glucose POC Glucose 208 H 41 L Lactic Acid Calcium Phosphorus Magnesium 07/06/17 07/06/17 07/06/17 01:29 02:22 03:04 WBC 11.9 H RBC 3.43 L Hgb 9.9 L Hct 32.9 L MCV MCHC RDW 15.7 H Plt Count 123 L Seg Neuts % (Manual) Lymphocytes % (Manual) Seg Neutrophils # Man Lymphocytes # (Manual) Monocytes # (Manual) POC ABG pH POC ABG pCO2 POC ABG pO2 VBG pH Sodium Potassium Chloride Carbon Dioxide BUN Creatinine Glucose POC Glucose < 40 L 64 L Lactic Acid Calcium Phosphorus Magnesium 07/06/17 07/06/17 07/06/17 03:04 05:50 16:34 WBC RBC Hgb Hct MCV MCHC RDW Plt Count Seg Neuts % (Manual) Lymphocytes % (Manual) Seg Neutrophils # Man Lymphocytes # (Manual) Monocytes # (Manual) POC ABG pH POC ABG pCO2 POC ABG pO2 VBG pH Sodium Potassium Chloride 110.7 H Carbon Dioxide 13 L BUN 29 H Creatinine 2.7 H D Glucose POC Glucose 56 L 210 H Lactic Acid Calcium 6.4 L Phosphorus 2.00 L Magnesium 1.40 L 07/06/17 07/07/17 07/07/17 20:47 06:46 10:29 WBC RBC Hgb Hct MCV MCHC RDW Plt Count Seg Neuts % (Manual) Lymphocytes % (Manual) Seg Neutrophils # Man Lymphocytes # (Manual) Monocytes # (Manual) POC ABG pH 7.028 L POC ABG pCO2 11.9 L POC ABG pO2 129 H VBG pH Sodium Potassium Chloride Carbon Dioxide BUN Creatinine Glucose POC Glucose 200 H 351 H Lactic Acid Calcium Phosphorus Magnesium 07/07/17 07/07/17 07/07/17 10:45 11:06 13:10 WBC RBC Hgb Hct MCV MCHC RDW Plt Count Seg Neuts % (Manual) Lymphocytes % (Manual) Seg Neutrophils # Man Lymphocytes # (Manual) Monocytes # (Manual) POC ABG pH POC ABG pCO2 POC ABG pO2 VBG pH Sodium Potassium 5.4 H D 6.0 H Chloride 108.2 H Carbon Dioxide 2 L* D 5 L* BUN 43 H 44 H Creatinine 4.6 H D 4.5 H Glucose 349 H 347 H POC Glucose 248 H Lactic Acid Calcium 7.0 L 7.1 L Phosphorus 4.60 H D Magnesium 07/07/17 07/07/17 07/07/17 14:47 15:27 16:13 WBC RBC Hgb Hct MCV MCHC RDW Plt Count Seg Neuts % (Manual) Lymphocytes % (Manual) Seg Neutrophils # Man Lymphocytes # (Manual) Monocytes # (Manual) POC ABG pH POC ABG pCO2 POC ABG pO2 VBG pH 7.269 L Sodium Potassium 5.4 H Chloride 107.4 H Carbon Dioxide 5 L* BUN 44 H Creatinine 4.3 H Glucose 439 H POC Glucose 285 H Lactic Acid Calcium 6.9 L Phosphorus Magnesium 07/07/17 07/07/17 07/07/17 16:27 17:13 18:03 WBC RBC Hgb Hct MCV MCHC RDW Plt Count Seg Neuts % (Manual) Lymphocytes % (Manual) Seg Neutrophils # Man Lymphocytes # (Manual) Monocytes # (Manual) POC ABG pH POC ABG pCO2 POC ABG pO2 VBG pH Sodium Potassium Chloride 110.2 H Carbon Dioxide 8 L* BUN 44 H Creatinine 4.6 H Glucose 247 H POC Glucose 328 H 207 H Lactic Acid Calcium 6.7 L Phosphorus Magnesium 07/07/17 07/07/17 07/07/17 18:24 19:24 22:06 WBC RBC Hgb Hct MCV MCHC RDW Plt Count Seg Neuts % (Manual) Lymphocytes % (Manual) Seg Neutrophils # Man Lymphocytes # (Manual) Monocytes # (Manual) POC ABG pH POC ABG pCO2 POC ABG pO2 VBG pH Sodium Potassium Chloride 112.3 H Carbon Dioxide 12 L BUN 44 H Creatinine 4.9 H Glucose POC Glucose 140 H 129 H Lactic Acid Calcium 7.0 L Phosphorus Magnesium 07/07/17 07/07/17 07/07/17 23:15 23:17 23:57 WBC RBC Hgb Hct MCV MCHC RDW Plt Count Seg Neuts % (Manual) Lymphocytes % (Manual) Seg Neutrophils # Man Lymphocytes # (Manual) Monocytes # (Manual) POC ABG pH POC ABG pCO2 POC ABG pO2 VBG pH Sodium Potassium Chloride 111.8 H Carbon Dioxide 13 L BUN 46 H Creatinine 4.9 H Glucose 161 H POC Glucose 182 H 146 H Lactic Acid Calcium 7.1 L Phosphorus Magnesium 07/08/17 07/08/17 07/08/17 02:00 02:55 03:54 WBC RBC Hgb Hct MCV MCHC RDW Plt Count Seg Neuts % (Manual) Lymphocytes % (Manual) Seg Neutrophils # Man Lymphocytes # (Manual) Monocytes # (Manual) POC ABG pH POC ABG pCO2 POC ABG pO2 VBG pH Sodium Potassium Chloride Carbon Dioxide BUN Creatinine Glucose POC Glucose 125 H 180 H 157 H Lactic Acid Calcium Phosphorus Magnesium 07/08/17 07/08/17 07/08/17 04:45 06:27 08:05 WBC RBC Hgb Hct MCV MCHC RDW Plt Count Seg Neuts % (Manual) Lymphocytes % (Manual) Seg Neutrophils # Man Lymphocytes # (Manual) Monocytes # (Manual) POC ABG pH POC ABG pCO2 POC ABG pO2 VBG pH Sodium Potassium Chloride 113.1 H Carbon Dioxide 13 L BUN 46 H Creatinine 5.4 H Glucose POC Glucose 153 H 166 H Lactic Acid Calcium 7.0 L Phosphorus Magnesium 07/08/17 07/08/17 07/08/17 08:58 10:11 13:21 WBC RBC Hgb Hct MCV MCHC RDW Plt Count Seg Neuts % (Manual) Lymphocytes % (Manual) Seg Neutrophils # Man Lymphocytes # (Manual) Monocytes # (Manual) POC ABG pH POC ABG pCO2 POC ABG pO2 VBG pH Sodium 135 L D Potassium 6.4 H* D Chloride Carbon Dioxide 12 L BUN 44 H Creatinine 4.8 H Glucose 524 H* POC Glucose 118 H 117 H Lactic Acid Calcium 6.5 L Phosphorus Magnesium Chest x-ray: report reviewed, image reviewed
[2017-07-08] MEDS: HALDOL IV PRN (17:24)
[2017-07-08] MEDS ORDERED: THERMAZENE 50 GRAM TP SCH (22:00)
[2017-07-08] MEDS: D5W 1,000 ML IV SCH (22:25)
[2017-07-09] MEDS: REGLAN PO SCH (01:37)
[2017-07-09] MEDS: ATIVAN IV PRN ×3 (04:03→20:55)
[2017-07-09 04:44] LABS: Hematocrit 27.5 % (35.5-45.6); Hemoglobin 8.7 gm/dl (11.8-15.2); Mean Corpuscular HGB Conc 32 % (32-34); Mean Corpuscular Hemoglobin 28 pg (28-32); Mean Corpuscular Volume 89 fl (84-94); Platelet Count 144 K/mm3 (140-440); Red Cell Distribution Width 16.9 % (13.2-15.2); White Blood Count 8.8 K/mm3 (4.5-11.0)
[2017-07-09 05:01] LABS: Calcium 7.4 mg/dL (8.4-10.2); Potassium 4.5 mmol/L (3.6-5.0)
[2017-07-09] MEDS: D50W (25GM) Vial IV PRN (06:00)
[2017-07-09] MEDS: HALDOL IV PRN ×2 (06:25→16:06)
--- NOTE | 2017-07-09 07:33 | Ultrasound Report ---
ULTRASOUND RENAL BILATERAL HISTORY: Acute renal failure. TECHNIQUE: transabdominal ultrasound with color Doppler interrogation. COMPARISON: None. FINDINGS: The right kidney measures 13.5 x 5.5 x 6.4cm. Right renal cortex: 1.5cm. The left kidney measures 13.3 x 6.2 x 5.7cm. Left renal cortex: 1.2cm. Both kidneys are normal size, contour and position. Both kidneys demonstrate increased parenchymal echogenicity consistent with nonspecific renal parenchymal disease. There is no evidence for cystic disease, mass, calculus or hydronephrosis. Trace ascites and moderate left pleural effusion noted. The bladder is within normal limits. IMPRESSION: Echogenic kidneys consistent with nonspecific renal parenchymal disease. No focal renal lesion or obstructive uropathy identified. Trace ascites. Moderate left pleural effusion.
--- NOTE | 2017-07-09 09:28 | Consultation ---
History of Present Illness - Reason for Consult Consult date: 07/09/17 acute renal failure Requesting physician: KIARA SIMONS - History of Present Illness Mr. Plasencia is a 42-year-old male with past medical history significant for diabetes, hepatitis C as well as history of drug abuse was admitted on the of this month in an unresponsive state. He was found to be in DKA as well. His serum creatinine is noted to be rising over the last 48 hours and therefore this consultation. Patient is currently lethargic unable to obtain any additional information from him. Patient is also currently being treated for presumed sepsis. He is currently in the ICU. Lying comfortably with restraints. Past History Past Medical History: diabetes, hepatitis, other (Nicotine Dependence, IVDA,) Past Surgical History: tonsillectomy Social history: , IV drug use Family history: diabetes, hypertension Medications and Allergies Allergies Allergy/AdvReac Type Severity Reaction Status Date / Time No Known Allergies Allergy Verified 06/30/17 14:18 Home Medications Medication Instructions Recorded Confirmed Last Taken Type Insulin Lispro [Humalog 100 10 units SQ TIDAC #30 insuln.pen 06/01/17 06/22/17 Unknown Rx UNITS/ML Kwikpen] Lantus Solostar 15 units SQ HS #30 06/01/17 06/22/17 Unknown Rx Metoclopramide [Reglan] 10 mg PO TID #90 tab 06/01/17 06/22/17 Unknown Rx Xanax TAB 0.5 mg PO BID #30 06/01/17 06/22/17 Unknown Rx Active Meds: Active Medications Albuterol (Proventil) 2.5 mg IH Q4H PRN PRN Reason: Shortness Of Breath Bisacodyl (Dulcolax) 10 mg [place] QDAY PRN PRN Reason: constipation unrelieved by MOM Dextrose (D50w (25gm) Vial) 0 gm IV PRN PRN PRN Reason: Hypoglycemia Last Admin: 07/09/17 06:00 Dose: 25 gm Famotidine (Pepcid) 20 mg IV DAILY SHELIA Haloperidol Lactate (Haldol) 5 mg IV Q6H PRN PRN Reason: Agitation Last Admin: 07/09/17 06:25 Dose: 5 mg Hydrophilic Ointment (Vaseline Lip Therapy) 1 applic TP Q2HR PRN PRN Reason: Dry Lips Potassium Chloride (Kcl 10meq/100ml) 10 meq in 100 mls @ 100 mls/hr IV Q1H PRN PRN Reason: SEE LABEL COMMENTS Potassium Chloride (Kcl 20meq/100ml) 20 meq in 100 mls @ 100 mls/hr IV Q1H PRN PRN Reason: SEE LABEL COMMENTS Insulin Human Regular 100 (units/ Sodium Chloride) 100 mls @ 1 mls/hr IV TITR SHELIA; 1 UNITS/HR PRN Reason: Protocol Last Titration: 07/09/17 06:00 Dose: 0 units/hr, 0 mls/hr Dextrose (D5w) 1,000 mls @ 100 mls/hr IV DIRECT SHELIA Last Admin: 07/08/17 22:25 Dose: 100 mls/hr Lorazepam (Ativan) 2 mg IV Q4H PRN PRN Reason: Agitation Last Admin: 07/09/17 04:03 Dose: 2 mg Magnesium Hydroxide (Milk Of Magnesia) 30 ml PO Q4H PRN PRN Reason: Constipation Multi-Ingred Cream/Lotion/Oil/Oint (Artificial Tears Ophth Oint) 1 applic OU Q4HR PRN PRN Reason: Dry Eye(s) Review of Systems ROS unobtainable: due to mental status Exam - Vital Signs Vital signs: Vital Signs Temp 93.3 F L 07/04/17 11:05 - General Appearance General appearance: well-developed, well-nourished, appears stated age EENT: PERRL, mucous membranes moist Neck: Present: neck supple, trachea midline. Absent: JVD/HJR, Masses Respiratory: Clear to Ascultation Heart: regular, normal heart rate Gastrointestinal: Present: normal, normoactive bowel sounds Integumentary: no rash, warm and dry Results - Lab Results 07/09/17 03:57 07/09/17 03:57 Most recent lab results Calcium 7.4 mg/dL (8.4-10.2) L 07/09/17 03:57 Phosphorus 4.60 mg/dL (2.5-4.5) H D 07/07/17 13:10 Magnesium 1.80 mg/dL (1.7-2.3) 07/07/17 13:10 Assessment and Plan Impression * Acute renal failure. Most likely secondary to ATN. * Metabolic acidosis. Probably combination of DKA as well as lactic acidosis * History of drug use * DKA * Hypertension Recommendations * Patient clinically behaving as ATN and he is also oliguric and acidotic. Need to initiate renal replacement therapy. Spoke with patient's mother over the telephone. She is agreeable to it. * Shall consult vascular surgery for Vas-Cath placement. Shall initiate hemodialysis thereafter * Check a UA as well as a fractional excretion of sodium. Check urine for eosinophils also * Renal ultrasound to assess kidney size and echogenicity * Vasculitis workup to rule out other causes of BRITTANY * Strict intake and output * Avoid nephrotoxins * Adjust meds for GFR less than 10 * Thank you very much for the consultation. Shall follow along with you
[2017-07-09] MEDS ORDERED: NACL 0.9% 100 ML IV PRN ×2 (09:30→17:12)
[2017-07-09] MEDS: PEPCID IV SCH (10:20)
[2017-07-09] MEDS: D5W 1,000 ML IV SCH ×2 (10:23→18:35)
[2017-07-09 10:57] LABS: Bacteria,Urine 1+ /HPF (Negative); Bilirubin,Urine NEG (Negative); Blood,Urine LG (Negative); Ketones,Urine NEG (Negative); Leukocyte Esterase,Urine MOD (Negative); Mucus,Urine FEW /HPF; Nitrite,Urine NEG (Negative); Urobilinogen,Urine < 2.0 mg/dL (<2.0)
[2017-07-09 10:58] LABS: RBC,Urine > 182.0 /HPF (0.0-6.0)
--- NOTE | 2017-07-09 13:00 | Progress Note ---
Assessment and Plan Imp: 1. DKA 2. Amphetamine abuse 3. Metabolic encephalopathy 4. Volume depletion 5. Hyperkalemia 6. BRITTANY, worsening 7. Acute respiratory failure, hypoxia Rec: 1. Cont. insulin drip until mentation better 2. On D5W per renal 3. Increased SOB, WOB, and some wheezing, likely volume overload from renal failure + compensation for metabolic acidosis; add Duonebs and awaiting HD today which should drastically improve the situation 4. SubQ heparin; monitor platelets 5. Prognosis guarded; complex decision-making; no family present Plan of care reviewed w/ patient, he understands/agrees Subjective Date of service: 07/09/17 Principal diagnosis: DKA, hypoxia Interval history: Mentation worse again, although will open eyes and moan to questions. + SOB and mild increased WOB. No other complaints. Active Medications Albuterol (Proventil) 2.5 mg IH Q4H PRN PRN Reason: Shortness Of Breath Albuterol/Ipratropium (Duoneb *Not For Prn Use*) 1 ampul IH Q6HRT SHELIA Bisacodyl (Dulcolax) 10 mg UT QDAY PRN PRN Reason: constipation unrelieved by MOM Dextrose (D50w (25gm) Vial) 0 gm IV PRN PRN PRN Reason: Hypoglycemia Last Admin: 07/09/17 06:00 Dose: 25 gm Famotidine (Pepcid) 20 mg IV DAILY SHELIA Last Admin: 07/09/17 10:20 Dose: 20 mg Haloperidol Lactate (Haldol) 5 mg IV Q6H PRN PRN Reason: Agitation Last Admin: 07/09/17 06:25 Dose: 5 mg Heparin Sodium (Porcine) (Heparin) 5,000 unit SUB-Q BID SHELIA Hydrophilic Ointment (Vaseline Lip Therapy) 1 applic TP Q2HR PRN PRN Reason: Dry Lips Potassium Chloride (Kcl 10meq/100ml) 10 meq in 100 mls @ 100 mls/hr IV Q1H PRN PRN Reason: SEE LABEL COMMENTS Potassium Chloride (Kcl 20meq/100ml) 20 meq in 100 mls @ 100 mls/hr IV Q1H PRN PRN Reason: SEE LABEL COMMENTS Insulin Human Regular 100 (units/ Sodium Chloride) 100 mls @ 1 mls/hr IV TITR SHELIA; 1 UNITS/HR PRN Reason: Protocol Last Titration: 10/31/17 10:31 Dose: 1 units/hr, 1 mls/hr Dextrose (D5w) 1,000 mls @ 100 mls/hr IV DIRECT SHELIA Last Admin: 07/09/17 10:23 Dose: 100 mls/hr Sodium Chloride (Nacl 0.9%) 100 mls @ 999 mls/hr IV ROSY PRN PRN Reason: Hypotension Lorazepam (Ativan) 2 mg IV Q4H PRN PRN Reason: Agitation Last Admin: 07/09/17 04:03 Dose: 2 mg Magnesium Hydroxide (Milk Of Magnesia) 30 ml PO Q4H PRN PRN Reason: Constipation Multi-Ingred Cream/Lotion/Oil/Oint (Artificial Tears Ophth Oint) 1 applic OU Q4HR PRN PRN Reason: Dry Eye(s) Objective Vital Signs - 12hr 07/09/17 07/09/17 07/09/17 01:00 01:11 01:21 Temperature Pulse Rate 106 H 109 H 110 H Respiratory 34 H 36 H 34 H Rate Blood Pressure 127/80 127/80 127/80 O2 Sat by Pulse 100 100 100 Oximetry 07/09/17 07/09/17 07/09/17 01:30 01:41 01:51 Temperature Pulse Rate 109 H 105 H 112 H Respiratory 36 H 38 H 23 Rate Blood Pressure 139/78 139/78 139/78 O2 Sat by Pulse 99 100 99 Oximetry 07/09/17 07/09/17 07/09/17 02:00 02:11 02:21 Temperature Pulse Rate 105 H 100 H 98 H Respiratory 39 H 29 H 28 H Rate Blood Pressure 137/99 137/99 137/99 O2 Sat by Pulse 100 100 100 Oximetry 07/09/17 07/09/17 07/09/17 02:30 02:41 02:51 Temperature Pulse Rate 99 H 102 H 102 H Respiratory 30 H 29 H 27 H Rate Blood Pressure 153/103 153/103 153/103 O2 Sat by Pulse 100 100 100 Oximetry 07/09/17 07/09/17 07/09/17 03:00 03:11 03:21 Temperature Pulse Rate 109 H 116 H 120 H Respiratory 40 H 43 H 45 H Rate Blood Pressure 150/103 150/103 150/103 O2 Sat by Pulse 100 100 100 Oximetry 07/09/17 07/09/1717 03:30 03:41 03:51 Temperature Pulse Rate 117 H 118 H 114 H Respiratory 49 H 44 H 40 H Rate Blood Pressure 140/100 140/100 140/100 O2 Sat by Pulse 100 100 99 Oximetry 07/09/17 07/09/17 07/09/17 04:00 04:05 04:11 Temperature Pulse Rate 108 H 115 H Respiratory 43 H 38 H 43 H Rate Blood Pressure 143/92 143/92 O2 Sat by Pulse 100 96 100 Oximetry 07/09/17 07/09/17 07/09/17 04:21 04:30 04:41 Temperature Pulse Rate 114 H 110 H 113 H Respiratory 36 H 42 H 37 H Rate Blood Pressure 143/92 139/87 139/87 O2 Sat by Pulse 100 100 100 Oximetry 07/09/17 07/09/17 07/09/17 04:51 05:01 05:11 Temperature Pulse Rate 113 H 105 H 102 H Respiratory 44 H 45 H 48 H Rate Blood Pressure 139/87 139/87 139/87 O2 Sat by Pulse 100 99 97 Oximetry 07/09/17 07/09/17 07/09/17 05:21 05:31 05:41 Temperature Pulse Rate 104 H 102 H 106 H Respiratory 45 H 34 H 41 H Rate Blood Pressure 139/87 139/87 139/87 O2 Sat by Pulse 97 99 100 Oximetry 07/09/17 07/09/17 07/09/17 05:50 06:00 06:11 Temperature Pulse Rate 109 H 108 H 108 H Respiratory 39 H 38 H 22 Rate Blood Pressure 140/90 133/97 133/97 O2 Sat by Pulse 100 100 100 Oximetry 07/09/17 07/09/17 07/09/17 06:21 06:30 06:41 Temperature Pulse Rate 109 H 108 H 101 H Respiratory 38 H 25 H 34 H Rate Blood Pressure 133/97 145/95 145/95 O2 Sat by Pulse 100 100 100 Oximetry 07/09/17 07/09/17 07/09/17 06:51 07:00 07:11 Temperature Pulse Rate 112 H 109 H 107 H Respiratory 37 H 39 H 34 H Rate Blood Pressure 145/95 138/94 138/94 O2 Sat by Pulse 100 100 100 Oximetry 07/09/17 07/09/17 07/09/17 07:21 07:30 07:41 Temperature Pulse Rate 111 H 111 H 108 H Respiratory 28 H 38 H 35 H Rate Blood Pressure 138/94 133/82 133/82 O2 Sat by Pulse 100 100 100 Oximetry 07/09/17 07/09/17 07/09/17 07:47 07:51 08:00 Temperature 98.2 F Pulse Rate 112 H 105 H Respiratory 40 H 35 H Rate Blood Pressure 133/82 135/90 O2 Sat by Pulse 100 100 99 Oximetry 07/09/17 07/09/17 07/09/17 08:11 08:21 08:30 Temperature Pulse Rate 102 H 100 H 97 H Respiratory 29 H 28 H 28 H Rate Blood Pressure 135/90 135/90 129/96 O2 Sat by Pulse 98 98 98 Oximetry 07/09/17 07/09/17 07/09/17 08:40 08:51 09:00 Temperature Pulse Rate 98 H 99 H 102 H Respiratory 26 H 25 H 26 H Rate Blood Pressure 129/96 129/96 134/87 O2 Sat by Pulse 98 98 98 Oximetry 07/09/17 07/09/17 07/09/17 09:11 09:21 09:30 Temperature Pulse Rate 101 H 103 H 101 H Respiratory 23 25 H 24 Rate Blood Pressure 129/96 129/96 123/79 O2 Sat by Pulse 98 98 98 Oximetry 07/09/17 07/09/17 07/09/17 09:41 09:51 10:00 Temperature Pulse Rate 102 H 100 H 99 H Respiratory 23 19 24 Rate Blood Pressure 123/79 123/79 118/81 O2 Sat by Pulse 97 98 98 Oximetry 07/09/17 07/09/17 07/09/17 10:11 10:21 10:30 Temperature Pulse Rate 98 H 96 H 96 H Respiratory 22 23 23 Rate Blood Pressure 118/81 118/81 128/84 O2 Sat by Pulse 98 98 96 Oximetry 07/09/17 12:00 Temperature 98 F Pulse Rate Respiratory Rate Blood Pressure O2 Sat by Pulse Oximetry Constitutional: no acute distress, other (somnolent but arousable) Eyes: non-icteric ENT: oropharynx moist Neck: supple Effort: mildly labored Ascultation: Bilateral: wheezes Cardiovascular: regular rate and rhythm (no mrg) Gastrointestinal: normoactive bowel sounds, soft, non-tender, non-distended Integumentary: normal Extremities: no cyanosis, no edema, pink and warm Neurologic: normal mental status, non-focal exam, pupils equal and round, CN II- XII normal Psychiatric: mood appropriate, affect normal CBC and BMP: 07/09/17 03:57 07/09/17 09:28 ABG, PT/INR, D-dimer: ABG POC ABG pH 7.028 (7.35-7.45) L 07/07/17 10:29 POC ABG pCO2 11.9 (35-45) L 07/07/17 10:29 POC ABG pO2 129 (80-105) H 07/07/17 10:29 POC ABG HCO3 3.1 07/07/17 10:29 POC ABG Total CO2 < 5 07/07/17 10:29 POC ABG O2 Sat 97 07/07/17 10:29 PT/INR, D-dimer PT 16.3 Sec. (12.2-14.9) H 07/04/17 11:31 INR 1.25 (0.87-1.13) H 07/04/17 11:31 Abnormal lab findings: Abnormal Labs 07/04/17 07/04/17 07/04/17 12:45 12:45 12:45 WBC 21.3 H RBC 3.48 L Hgb 9.9 L Hct MCV 108 H MCHC 26 L RDW 16.3 H Plt Count Seg Neuts % (Manual) 89.0 H Lymphocytes % (Manual) 2.0 L Seg Neutrophils # Man 19.0 H Lymphocytes # (Manual) 0.4 L Monocytes # (Manual) 1.1 H POC ABG pH POC ABG pCO2 POC ABG pO2 VBG pH Sodium 132 L Potassium Chloride 90.9 L Carbon Dioxide 6 L* BUN 31 H Creatinine Glucose 1112 H* POC Glucose Lactic Acid Uric Acid Calcium 7.3 L Phosphorus 8.60 H Magnesium Urine WBC (Auto) 07/04/17 07/04/17 07/04/17 13:20 14:28 14:28 WBC RBC Hgb Hct MCV MCHC RDW Plt Count Seg Neuts % (Manual) Lymphocytes % (Manual) Seg Neutrophils # Man Lymphocytes # (Manual) Monocytes # (Manual) POC ABG pH 6.743 L POC ABG pCO2 53.9 H POC ABG pO2 259 H VBG pH Sodium 134 L Potassium 5.3 H Chloride 94.5 L Carbon Dioxide 6 L* BUN 31 H Creatinine Glucose 1060 H* POC Glucose Lactic Acid 3.20 H* Uric Acid Calcium 6.8 L Phosphorus Magnesium Urine WBC (Auto) 07/04/17 07/04/17 07/04/17 15:56 18:00 18:23 WBC RBC Hgb Hct MCV MCHC RDW Plt Count Seg Neuts % (Manual) Lymphocytes % (Manual) Seg Neutrophils # Man Lymphocytes # (Manual) Monocytes # (Manual) POC ABG pH POC ABG pCO2 POC ABG pO2 VBG pH Sodium 133 L Potassium 3.5 L D Chloride 97.1 L Carbon Dioxide 7 L* 5 L* BUN 30 H 28 H Creatinine 1.6 H Glucose 1002 H* 988 H* POC Glucose > 500 H Lactic Acid Uric Acid Calcium 6.7 L 6.1 L Phosphorus Magnesium Urine WBC (Auto) 07/04/17 07/04/17 07/04/17 20:05 20:29 21:21 WBC RBC Hgb Hct MCV MCHC RDW Plt Count Seg Neuts % (Manual) Lymphocytes % (Manual) Seg Neutrophils # Man Lymphocytes # (Manual) Monocytes # (Manual) POC ABG pH POC ABG pCO2 POC ABG pO2 VBG pH Sodium Potassium 3.3 L Chloride Carbon Dioxide 5 L* BUN 29 H Creatinine 1.8 H Glucose 542 H* POC Glucose 487 H 410 H Lactic Acid Uric Acid Calcium 6.5 L Phosphorus Magnesium Urine WBC (Auto) 07/04/17 07/04/17 07/05/17 22:42 23:25 00:22 WBC RBC Hgb Hct MCV MCHC RDW Plt Count Seg Neuts % (Manual) Lymphocytes % (Manual) Seg Neutrophils # Man Lymphocytes # (Manual) Monocytes # (Manual) POC ABG pH POC ABG pCO2 POC ABG pO2 VBG pH Sodium Potassium Chloride Carbon Dioxide BUN Creatinine Glucose POC Glucose 360 H 338 H 276 H Lactic Acid Uric Acid Calcium Phosphorus Magnesium Urine WBC (Auto) 07/05/17 07/05/17 07/05/17 01:23 03:06 04:30 WBC RBC Hgb Hct MCV MCHC RDW Plt Count Seg Neuts % (Manual) Lymphocytes % (Manual) Seg Neutrophils # Man Lymphocytes # (Manual) Monocytes # (Manual) POC ABG pH POC ABG pCO2 POC ABG pO2 VBG pH Sodium Potassium 3.0 L Chloride 118.7 H Carbon Dioxide 15 L D BUN 25 H Creatinine 1.6 H Glucose 63 L POC Glucose 245 H 213 H Lactic Acid Uric Acid Calcium 6.0 L Phosphorus Magnesium Urine WBC (Auto) 07/05/17 07/05/17 07/05/17 06:04 06:52 08:09 WBC RBC Hgb Hct MCV MCHC RDW Plt Count Seg Neuts % (Manual) Lymphocytes % (Manual) Seg Neutrophils # Man Lymphocytes # (Manual) Monocytes # (Manual) POC ABG pH 7.179 L POC ABG pCO2 POC ABG pO2 263 H VBG pH Sodium Potassium Chloride Carbon Dioxide BUN Creatinine Glucose POC Glucose 159 H 174 H Lactic Acid Uric Acid Calcium Phosphorus Magnesium Urine WBC (Auto) 07/05/17 07/05/17 07/06/17 17:56 23:59 01:00 WBC RBC Hgb Hct MCV MCHC RDW Plt Count Seg Neuts % (Manual) Lymphocytes % (Manual) Seg Neutrophils # Man Lymphocytes # (Manual) Monocytes # (Manual) POC ABG pH 7.231 L POC ABG pCO2 33.4 L POC ABG pO2 149 H VBG pH Sodium Potassium Chloride Carbon Dioxide BUN Creatinine Glucose POC Glucose 208 H 41 L Lactic Acid Uric Acid Calcium Phosphorus Magnesium Urine WBC (Auto) 07/06/17 07/06/17 07/06/17 01:29 02:22 03:04 WBC 11.9 H RBC 3.43 L Hgb 9.9 L Hct 32.9 L MCV MCHC RDW 15.7 H Plt Count 123 L Seg Neuts % (Manual) Lymphocytes % (Manual) Seg Neutrophils # Man Lymphocytes # (Manual) Monocytes # (Manual) POC ABG pH POC ABG pCO2 POC ABG pO2 VBG pH Sodium Potassium Chloride Carbon Dioxide BUN Creatinine Glucose POC Glucose < 40 L 64 L Lactic Acid Uric Acid Calcium Phosphorus Magnesium Urine WBC (Auto) 07/06/17 07/06/17 07/06/17 03:04 05:50 16:34 WBC RBC Hgb Hct MCV MCHC RDW Plt Count Seg Neuts % (Manual) Lymphocytes % (Manual) Seg Neutrophils # Man Lymphocytes # (Manual) Monocytes # (Manual) POC ABG pH POC ABG pCO2 POC ABG pO2 VBG pH Sodium Potassium Chloride 110.7 H Carbon Dioxide 13 L BUN 29 H Creatinine 2.7 H D Glucose POC Glucose 56 L 210 H Lactic Acid Uric Acid Calcium 6.4 L Phosphorus 2.00 L Magnesium 1.40 L Urine WBC (Auto) 07/06/17 07/07/17 07/07/17 20:47 06:46 10:29 WBC RBC Hgb Hct MCV MCHC RDW Plt Count Seg Neuts % (Manual) Lymphocytes % (Manual) Seg Neutrophils # Man Lymphocytes # (Manual) Monocytes # (Manual) POC ABG pH 7.028 L POC ABG pCO2 11.9 L POC ABG pO2 129 H VBG pH Sodium Potassium Chloride Carbon Dioxide BUN Creatinine Glucose POC Glucose 200 H 351 H Lactic Acid Uric Acid Calcium Phosphorus Magnesium Urine WBC (Auto) 07/07/17 07/07/17 07/07/17 10:45 11:06 13:10 WBC RBC Hgb Hct MCV MCHC RDW Plt Count Seg Neuts % (Manual) Lymphocytes % (Manual) Seg Neutrophils # Man Lymphocytes # (Manual) Monocytes # (Manual) POC ABG pH POC ABG pCO2 POC ABG pO2 VBG pH Sodium Potassium 5.4 H D 6.0 H Chloride 108.2 H Carbon Dioxide 2 L* D 5 L* BUN 43 H 44 H Creatinine 4.6 H D 4.5 H Glucose 349 H 347 H POC Glucose 248 H Lactic Acid Uric Acid Calcium 7.0 L 7.1 L Phosphorus 4.60 H D Magnesium Urine WBC (Auto) 07/07/17 07/07/17 07/07/17 14:47 15:27 16:13 WBC RBC Hgb Hct MCV MCHC RDW Plt Count Seg Neuts % (Manual) Lymphocytes % (Manual) Seg Neutrophils # Man Lymphocytes # (Manual) Monocytes # (Manual) POC ABG pH POC ABG pCO2 POC ABG pO2 VBG pH 7.269 L Sodium Potassium 5.4 H Chloride 107.4 H Carbon Dioxide 5 L* BUN 44 H Creatinine 4.3 H Glucose 439 H POC Glucose 285 H Lactic Acid Uric Acid Calcium 6.9 L Phosphorus Magnesium Urine WBC (Auto) 07/07/17 07/07/17 07/07/17 16:27 17:13 18:03 WBC RBC Hgb Hct MCV MCHC RDW Plt Count Seg Neuts % (Manual) Lymphocytes % (Manual) Seg Neutrophils # Man Lymphocytes # (Manual) Monocytes # (Manual) POC ABG pH POC ABG pCO2 POC ABG pO2 VBG pH Sodium Potassium Chloride 110.2 H Carbon Dioxide 8 L* BUN 44 H Creatinine 4.6 H Glucose 247 H POC Glucose 328 H 207 H Lactic Acid Uric Acid Calcium 6.7 L Phosphorus Magnesium Urine WBC (Auto) 07/07/17 07/07/17 07/07/17 18:24 19:24 22:06 WBC RBC Hgb Hct MCV MCHC RDW Plt Count Seg Neuts % (Manual) Lymphocytes % (Manual) Seg Neutrophils # Man Lymphocytes # (Manual) Monocytes # (Manual) POC ABG pH POC ABG pCO2 POC ABG pO2 VBG pH Sodium Potassium Chloride 112.3 H Carbon Dioxide 12 L BUN 44 H Creatinine 4.9 H Glucose POC Glucose 140 H 129 H Lactic Acid Uric Acid Calcium 7.0 L Phosphorus Magnesium Urine WBC (Auto) 07/07/17 07/07/17 07/07/17 23:15 23:17 23:57 WBC RBC Hgb Hct MCV MCHC RDW Plt Count Seg Neuts % (Manual) Lymphocytes % (Manual) Seg Neutrophils # Man Lymphocytes # (Manual) Monocytes # (Manual) POC ABG pH POC ABG pCO2 POC ABG pO2 VBG pH Sodium Potassium Chloride 111.8 H Carbon Dioxide 13 L BUN 46 H Creatinine 4.9 H Glucose 161 H POC Glucose 182 H 146 H Lactic Acid Uric Acid Calcium 7.1 L Phosphorus Magnesium Urine WBC (Auto) 07/08/17 07/08/17 07/08/17 02:00 02:55 03:54 WBC RBC Hgb Hct MCV MCHC RDW Plt Count Seg Neuts % (Manual) Lymphocytes % (Manual) Seg Neutrophils # Man Lymphocytes # (Manual) Monocytes # (Manual) POC ABG pH POC ABG pCO2 POC ABG pO2 VBG pH Sodium Potassium Chloride Carbon Dioxide BUN Creatinine Glucose POC Glucose 125 H 180 H 157 H Lactic Acid Uric Acid Calcium Phosphorus Magnesium Urine WBC (Auto) 07/08/17 07/08/17 07/08/17 04:45 06:27 08:05 WBC RBC Hgb Hct MCV MCHC RDW Plt Count Seg Neuts % (Manual) Lymphocytes % (Manual) Seg Neutrophils # Man Lymphocytes # (Manual) Monocytes # (Manual) POC ABG pH POC ABG pCO2 POC ABG pO2 VBG pH Sodium Potassium Chloride 113.1 H Carbon Dioxide 13 L BUN 46 H Creatinine 5.4 H Glucose POC Glucose 153 H 166 H Lactic Acid Uric Acid Calcium 7.0 L Phosphorus Magnesium Urine WBC (Auto) 07/08/17 07/08/17 07/08/17 08:58 10:11 13:11 WBC RBC Hgb Hct MCV MCHC RDW Plt Count Seg Neuts % (Manual) Lymphocytes % (Manual) Seg Neutrophils # Man Lymphocytes # (Manual) Monocytes # (Manual) POC ABG pH POC ABG pCO2 POC ABG pO2 VBG pH Sodium Potassium Chloride Carbon Dioxide BUN Creatinine Glucose POC Glucose 118 H 117 H 142 H Lactic Acid Uric Acid Calcium Phosphorus Magnesium Urine WBC (Auto) 07/08/17 07/08/17 07/08/17 13:21 14:31 15:57 WBC RBC Hgb Hct MCV MCHC RDW Plt Count Seg Neuts % (Manual) Lymphocytes % (Manual) Seg Neutrophils # Man Lymphocytes # (Manual) Monocytes # (Manual) POC ABG pH POC ABG pCO2 POC ABG pO2 VBG pH Sodium 135 L D Potassium 6.4 H* D Chloride Carbon Dioxide 12 L BUN 44 H Creatinine 4.8 H Glucose 524 H* POC Glucose 197 H 168 H Lactic Acid Uric Acid Calcium 6.5 L Phosphorus Magnesium Urine WBC (Auto) 07/08/17 07/08/17 07/08/17 19:06 20:38 21:10 WBC RBC Hgb Hct MCV MCHC RDW Plt Count Seg Neuts % (Manual) Lymphocytes % (Manual) Seg Neutrophils # Man Lymphocytes # (Manual) Monocytes # (Manual) POC ABG pH POC ABG pCO2 POC ABG pO2 VBG pH Sodium Potassium Chloride Carbon Dioxide BUN Creatinine Glucose POC Glucose 149 H 120 H 108 H Lactic Acid Uric Acid Calcium Phosphorus Magnesium Urine WBC (Auto) 07/08/17 07/09/17 07/09/17 23:32 00:12 01:12 WBC RBC Hgb Hct MCV MCHC RDW Plt Count Seg Neuts % (Manual) Lymphocytes % (Manual) Seg Neutrophils # Man Lymphocytes # (Manual) Monocytes # (Manual) POC ABG pH POC ABG pCO2 POC ABG pO2 VBG pH Sodium Potassium Chloride Carbon Dioxide BUN Creatinine Glucose POC Glucose 67 L 131 H 161 H Lactic Acid Uric Acid Calcium Phosphorus Magnesium Urine WBC (Auto) 07/09/17 07/09/17 07/09/17 01:59 03:02 03:57 WBC RBC Hgb Hct MCV MCHC RDW Plt Count Seg Neuts % (Manual) Lymphocytes % (Manual) Seg Neutrophils # Man Lymphocytes # (Manual) Monocytes # (Manual) POC ABG pH POC ABG pCO2 POC ABG pO2 VBG pH Sodium Potassium Chloride Carbon Dioxide BUN Creatinine Glucose POC Glucose 253 H 128 H Lactic Acid Uric Acid 9.5 H Calcium Phosphorus Magnesium Urine WBC (Auto) 07/09/17 07/09/17 07/09/17 03:57 03:57 06:23 WBC RBC 3.10 L Hgb 8.7 L Hct 27.5 L MCV MCHC RDW 16.9 H Plt Count Seg Neuts % (Manual) Lymphocytes % (Manual) Seg Neutrophils # Man Lymphocytes # (Manual) Monocytes # (Manual) POC ABG pH POC ABG pCO2 POC ABG pO2 VBG pH Sodium Potassium Chloride 112.0 H Carbon Dioxide 11 L BUN 48 H Creatinine 5.7 H Glucose POC Glucose 63 L Lactic Acid Uric Acid Calcium 7.4 L Phosphorus Magnesium Urine WBC (Auto) 07/09/17 07/09/17 07/09/17 07:38 08:26 09:28 WBC RBC Hgb Hct MCV MCHC RDW Plt Count Seg Neuts % (Manual) Lymphocytes % (Manual) Seg Neutrophils # Man Lymphocytes # (Manual) Monocytes # (Manual) POC ABG pH POC ABG pCO2 POC ABG pO2 VBG pH Sodium Potassium Chloride Carbon Dioxide BUN Creatinine Glucose POC Glucose 175 H 206 H Lactic Acid Uric Acid Calcium Phosphorus Magnesium Urine WBC (Auto) 14.0 H 07/09/17 07/09/17 07/09/17 09:28 10:21 12:31 WBC RBC Hgb Hct MCV MCHC RDW Plt Count Seg Neuts % (Manual) Lymphocytes % (Manual) Seg Neutrophils # Man Lymphocytes # (Manual) Monocytes # (Manual) POC ABG pH POC ABG pCO2 POC ABG pO2 VBG pH Sodium 129 L D Potassium Chloride Carbon Dioxide BUN Creatinine 5.6 H Glucose POC Glucose 124 H 123 H Lactic Acid Uric Acid Calcium Phosphorus Magnesium Urine WBC (Auto) Chest x-ray: report reviewed, image reviewed
--- NOTE | 2017-07-09 14:40 | Operative Report ---
Operative Report Operative Report: Procedure: Placement of a right common femoral temporary dialysis catheter. Date of Procedure: 07/09/2017 History/Indication: This is a 42 year old male with renal failure. Impression: Successful placement of a right common femoral temporary dialysis catheter via the right common femoral vein. Physician: Salas Pedersen MD Technique/Procedural Details: Informed consent was obtained. The patient's right groin was prepped and draped in the usual sterile fashion. After administration of local anesthetic, the right common femoral vein was accessed under continuous ultrasound guidance , with an 18-gauge needle. A J-wire was advanced through the needle, and the needle was exchanged for a tissue dilator. After tissue dilation, the temporary dialysis catheter was advanced over the wire. The wire was removed. All 3 lumens were aspirated and flushed. A heparin lock was instilled in each of the 2 larger lumens. A sterile dressing was placed. There were no complications. Discussion: A Trialysis catheter was successfully placed. The right common femoral vein is patent and compressible. Specimen: None EBL: <5 cc
[2017-07-09 15:28] LABS: Fractional Sodium Excretion 8.5
[2017-07-09] MEDS: DUONEB *Not for PRN Use IH SCH ×2 (16:54→19:46)
[2017-07-09] MEDS ORDERED: HEPARIN IV PRN (17:12)
--- NOTE | 2017-07-09 17:56 | Progress Note ---
Assessment and Plan Assessment and plan: Patient is a 42-year-old man with h/o IDDM, diabetic ketoacidosis and drug abuse , patient brought to the hospital by EMS for altered mental status. Patient found unresponsive in a local hotel, for uncertain duration of time, uncertain mechanism, with evidence of drug paraphernalia. As per EMS, patient initially hypotensive, hypothermic, hyperglycemic, and hypoxic in the field. EMS further reported that they gave 2 mg of Narcan in the field, which somewhat improved the patient's mental status. Upon arrival to the ER, the patient was altered, combative, pulling at his leads/monitor, trying to get out of the stretcher, trying to pull out his IV. Patient was clearly a danger to himself and other patients; therefore, he was intubated. Patient was found to be hyperglycemic, glucose of greater than 500, hypothermic with a core rectal temperature of 93, with blood pressure in the low 100s. Patient started empirically on the sepsis pathway, as well as the DKA pathway. Extubated 07/06/17 - SIRS, poa and No Sepsis without a source - DKA (diabetic ketoacidoses), resolved, with episdoes of hypoglycemia: stop long acting insulin, until pt is eating better - Acute toxic metabolic encephalopathy due to amphetamine: Unchanged - Metabolic acidosis, due to DKA - Acute respiratory failure, extubated 07/06/17 Supplemental oxygen, nebs, wean vent as tolerated, daily SBT, pulmonary consulted, wean vent as tolerated, wean sedation and attempt extubation - Amphetamine Abuse: supportative care -ARF, vasomotor nephropathy: consult renal, temporal dialysis catheter placed. --DVT prophylaxis: scd, stop heparin due to drop in plt The high probability of a clinically significant, sudden or life threatening deterioration of the [Neurology, Nephrology, endocrine] system(s) required my full and direct attention, intervention and personal management. The aggregate critical care time was [35] minutes. This time is in addition to time spent performing reported procedures but includes the following: [x] Data Review and interpretation [x] Patient assessment and monitoring of vital signs [x] Documentation [x] Medication orders and management History Interval history: patient seen and examined, In no acute distress, still very lethargic Hospitalist Physical - Physical exam Narrative exam: GEN: ill appearing, nad, confused HEENT: NCAT, EOMI, PERRL, OP Clear NECK: supple, no adenopathy, no thyromegaly, no JVD CVS/HEART: regular tachy, NORMAL S1S2, NO JVD, pulses present bilaterally CHEST/LUNGS: CTA B, Symmetrical chest expansion, good air entry bilaterally GI/Abdomen: soft, NTND, good bowel sounds, no guarding or rebound /Bladder: no suprapubic tenderness, no CVA or paraspinal tenderness EXT/Skin: no c/c/e, no obvious rash MSK: FROM x 4 Neuro: unable to accurately assess, doesn't follow commands Psych: calm - Constitutional Vitals: Temp Pulse Resp BP Pulse Ox 98.0 F 85 28 H 133/93 99 07/09/17 15:50 07/09/17 17:46 07/09/17 17:30 07/09/17 17:46 07/09/17 17:30 General appearance: Present: no acute distress. Absent: other Results - Labs CBC & Chem 7: 07/10/17 05:04 07/10/17 05:04 Labs: Laboratory Last Values WBC 8.8 K/mm3 (4.5-11.0) 07/09/17 03:57 RBC 3.10 M/mm3 (3.65-5.03) L 07/09/17 03:57 Hgb 8.7 gm/dl (11.8-15.2) L 07/09/17 03:57 Hct 27.5 % (35.5-45.6) L 07/09/17 03:57 MCV 89 fl (84-94) 07/09/17 03:57 MCH 28 pg (28-32) 07/09/17 03:57 MCHC 32 % (32-34) 07/09/17 03:57 RDW 16.9 % (13.2-15.2) H 07/09/17 03:57 Plt Count 144 K/mm3 (140-440) 07/09/17 03:57 Add Manual Diff Complete 07/04/17 12:45 Total Counted 100 07/04/17 12:45 Seg Neuts % (Manual) 89.0 % (40.0-70.0) H 07/04/17 12:45 Band Neutrophils % 4.0 % 07/04/17 12:45 Lymphocytes % (Manual) 2.0 % (13.4-35.0) L 07/04/17 12:45 Reactive Lymphs % (Man) 0 % 07/04/17 12:45 Monocytes % (Manual) 5.0 % (0.0-7.3) 07/04/17 12:45 Eosinophils % (Manual) 0 % (0.0-4.3) 07/04/17 12:45 Basophils % (Manual) 0 % (0.0-1.8) 07/04/17 12:45 Metamyelocytes % 0 % 07/04/17 12:45 Myelocytes % 0 % 07/04/17 12:45 Promyelocytes % 0 % 07/04/17 12:45 Blast Cells % 0 % 07/04/17 12:45 Nucleated RBC % Not Reportable 07/04/17 12:45 Seg Neutrophils # Man 19.0 K/mm3 (1.8-7.7) H 07/04/17 12:45 Band Neutrophils # 0.9 K/mm3 07/04/17 12:45 Lymphocytes # (Manual) 0.4 K/mm3 (1.2-5.4) L 07/04/17 12:45 Abs React Lymphs (Man) 0.0 K/mm3 07/04/17 12:45 Monocytes # (Manual) 1.1 K/mm3 (0.0-0.8) H 07/04/17 12:45 Eosinophils # (Manual) 0.0 K/mm3 (0.0-0.4) 07/04/17 12:45 Basophils # (Manual) 0.0 K/mm3 (0.0-0.1) 07/04/17 12:45 Metamyelocytes # 0.0 K/mm3 07/04/17 12:45 Myelocytes # 0.0 K/mm3 07/04/17 12:45 Promyelocytes # 0.0 K/mm3 07/04/17 12:45 Blast Cells # 0.0 K/mm3 07/04/17 12:45 WBC Morphology Not Reportable 07/04/17 12:45 Hypersegmented Neuts Not Reportable 07/04/17 12:45 Hyposegmented Neuts Not Reportable 07/04/17 12:45 Hypogranular Neuts Not Reportable 07/04/17 12:45 Smudge Cells Not Reportable 07/04/17 12:45 Toxic Granulation Not Reportable 07/04/17 12:45 Toxic Vacuolation Not Reportable 07/04/17 12:45 Dohle Bodies Not Reportable 07/04/17 12:45 Pelger-Huet Anomaly Not Reportable 07/04/17 12:45 Deyanira Rods Not Reportable 07/04/17 12:45 Platelet Estimate Appears normal 07/04/17 12:45 Clumped Platelets Not Reportable 07/04/17 12:45 Plt Clumps, EDTA Not Reportable 07/04/17 12:45 Large Platelets Not Reportable 07/04/17 12:45 Giant Platelets Not Reportable 07/04/17 12:45 Platelet Satelliting Not Reportable 07/04/17 12:45 Plt Morphology Comment Not Reportable 07/04/17 12:45 RBC Morphology Not Reportable 07/04/17 12:45 Dimorphic RBCs Not Reportable 07/04/17 12:45 Polychromasia Not Reportable 07/04/17 12:45 Hypochromasia Not Reportable 07/04/17 12:45 Poikilocytosis Not Reportable 07/04/17 12:45 Anisocytosis 2+ 07/04/17 12:45 Microcytosis Not Reportable 07/04/17 12:45 Macrocytosis 2+ 07/04/17 12:45 Spherocytes Not Reportable 07/04/17 12:45 Pappenheimer Bodies Not Reportable 07/04/17 12:45 Sickle Cells Not Reportable 07/04/17 12:45 Target Cells Not Reportable 07/04/17 12:45 Tear Drop Cells Not Reportable 07/04/17 12:45 Ovalocytes Not Reportable 07/04/17 12:45 Helmet Cells Not Reportable 07/04/17 12:45 Hernandez-Red Devil Bodies Not Reportable 07/04/17 12:45 Duff Rings Not Reportable 07/04/17 12:45 Shawn Cells Not Reportable 07/04/17 12:45 Bite Cells Not Reportable 07/04/17 12:45 Crenated Cell Not Reportable 07/04/17 12:45 Elliptocytes Not Reportable 07/04/17 12:45 Acanthocytes (Spur) Not Reportable 07/04/17 12:45 Rouleaux Not Reportable 07/04/17 12:45 Hemoglobin C Crystals Not Reportable 07/04/17 12:45 Schistocytes Not Reportable 07/04/17 12:45 Malaria parasites Not Reportable 07/04/17 12:45 Andrei Bodies Not Reportable 07/04/17 12:45 Hem Pathologist Commnt No 07/04/17 12:45 PT 16.3 Sec. (12.2-14.9) H 07/04/17 11:31 INR 1.25 (0.87-1.13) H 07/04/17 11:31 APTT 25.3 Sec. (24.2-36.6) 07/04/17 11:31 POC ABG pH 7.028 (7.35-7.45) L 07/07/17 10:29 POC ABG pCO2 11.9 (35-45) L 07/07/17 10:29 POC ABG pO2 129 (80-105) H 07/07/17 10:29 POC ABG HCO3 3.1 07/07/17 10:29 POC ABG Total CO2 < 5 07/07/17 10:29 POC ABG O2 Sat 97 07/07/17 10:29 POC ABG Base Excess -28 07/07/17 10:29 VBG pH 7.269 (7.320-7.420) L 07/07/17 16:13 FiO2 21 % 07/07/17 10:29 Sodium 129 mmol/L (137-145) L D 07/09/17 09:28 Potassium 4.5 mmol/L (3.6-5.0) 07/09/17 03:57 Chloride 112.0 mmol/L (98-107) H 07/09/17 03:57 Carbon Dioxide 11 mmol/L (22-30) L 07/09/17 03:57 Anion Gap 25 mmol/L 07/09/17 03:57 BUN 48 mg/dL (9-20) H 07/09/17 03:57 Creatinine 5.6 mg/dL (0.8-1.5) H 07/09/17 09:28 Estimated GFR 11 ml/min 07/09/17 03:57 BUN/Creatinine Ratio 8 % 07/09/17 03:57 Glucose 91 mg/dL (75-100) 07/09/17 03:57 POC Glucose 122 (70-105) H 07/09/17 15:29 Osmolality 304 Mosm/kg 07/09/17 03:57 Lactic Acid 3.20 mmol/L (0.7-2.0) H* 07/04/17 14:28 Uric Acid 9.5 mg/dL (3.5-7.6) H 07/09/17 03:57 Calcium 7.4 mg/dL (8.4-10.2) L 07/09/17 03:57 Phosphorus 4.60 mg/dL (2.5-4.5) H D 07/07/17 13:10 Magnesium 1.80 mg/dL (1.7-2.3) 07/07/17 13:10 Total Bilirubin < 0.20 mg/dL (0.1-1.2) 07/04/17 11:25 AST 50 units/L (5-40) H 07/04/17 11:25 ALT 69 units/L (7-56) H 07/04/17 11:25 Alkaline Phosphatase 266 units/L (35-129) H 07/04/17 11:25 Total Creatine Kinase 168 units/L (55-170) 07/08/17 13:21 Total Protein 6.4 g/dL (6.3-8.2) 07/04/17 11:25 Albumin 3.2 g/dL (3.9-5) L 07/04/17 11:25 Albumin/Globulin Ratio 1.0 % 07/04/17 11:25 TSH 1.810 mlU/mL (0.270-4.200) 07/04/17 11:25 Urine Color Yellow (Yellow) 07/09/17 09:28 Urine Turbidity Clear (Clear) 07/09/17 09:28 Urine pH 5.0 (5.0-7.0) 07/09/17 09:28 Ur Specific [place] 1.010 (1.003-1.030) 07/09/17 09:28 Urine Protein 100 mg/dl mg/dL (Negative) 07/09/17 09:28 Urine Glucose (UA) 150 mg/dL (Negative) 07/09/17 09:28 Urine Ketones Neg mg/dL (Negative) 07/09/17 09:28 Urine Blood Lg (Negative) 07/09/17 09:28 Urine Nitrite Neg (Negative) 07/09/17 09:28 Urine Bilirubin Neg (Negative) 07/09/17 09:28 Urine Urobilinogen < 2.0 mg/dL (<2.0) 07/09/17 09:28 Ur Leukocyte Esterase Mod (Negative) 07/09/17 09:28 Urine WBC (Auto) 14.0 /HPF (0.0-6.0) H 07/09/17 09:28 Urine RBC (Auto) > 182.0 /HPF (0.0-6.0) 07/09/17 09:28 U Epithel Cells (Auto) 1.0 /HPF (0-13.0) 07/09/17 09:28 Urine Bacteria (Auto) 1+ /HPF (Negative) 07/09/17 09:28 Amorphous Crystals Few 07/09/17 09:28 Urine Mucus Few /HPF 07/09/17 09:28 Urine Eosinophils None seen (None Seen) 07/09/17 10:10 Urine Creatinine 55.0 mg/dL (0.1-20.0) H 07/09/17 09:28 Urine Sodium 110 mEq/L 07/09/17 09:28 Fraction Sodium Excret 8.5 07/09/17 09:28 Salicylates < 0.3 mg/dL (2.8-20.0) L 07/04/17 11:25 Urine Opiates Screen Presumptive negative 07/04/17 12:38 Urine Methadone Screen Presumptive negative 07/04/17 12:38 Acetaminophen < 15.0 ug/mL (10.0-30.0) 07/04/17 11:25 Ur Barbiturates Screen Presumptive negative 07/04/17 12:38 Ur Phencyclidine Scrn Presumptive negative 07/04/17 12:38 Ur Amphetamines Screen Presumptive positive 07/04/17 12:38 U Benzodiazepines Scrn Presumptive negative 07/04/17 12:38 Urine Cocaine Screen Presumptive negative 07/04/17 12:38 U Marijuana (THC) Screen Presumptive negative 07/04/17 12:38 Drugs of Abuse Note Disclamer 07/04/17 12:38 Plasma/Serum Alcohol < 0.01 gm% (0-0.07) 07/04/17 11:25 Hepatitis A IgM Ab Non-reactive (NonReactive) 07/09/17 10:37 Hep Bs Antigen Non-reactive (Negative) 07/09/17 10:37 Hep B Core IgM Ab Non-reactive (NonReactive) 07/09/17 10:37 Hepatitis C Antibody Reactive (NonReactive) A 07/09/17 10:37
[2017-07-09] MEDS: HEPARIN SUB-Q SCH (22:04)
[2017-07-10] MEDS: HALDOL IV PRN ×2 (00:40→10:22)
[2017-07-10] MEDS: DUONEB *Not for PRN Use IH SCH ×4 (02:49→20:47)
[2017-07-10] MEDS: ATIVAN IV PRN ×2 (04:00→15:46)
[2017-07-10] MEDS: D5W 1,000 ML IV SCH ×2 (05:06→22:59)
[2017-07-10 05:33] LABS: Hematocrit 23.7 % (35.5-45.6); Hemoglobin 8.3 gm/dl (11.8-15.2); Mean Corpuscular HGB Conc 35 % (32-34); Mean Corpuscular Hemoglobin 30 pg (28-32); Mean Corpuscular Volume 84 fl (84-94); Platelet Count 131 K/mm3 (140-440); Red Blood Count 2.81 M/mm3 (3.65-5.03); Red Cell Distribution Width 15.5 % (13.2-15.2); White Blood Count 5.4 K/mm3 (4.5-11.0)
[2017-07-10 05:52] LABS: Chloride 103.8 mmol/L (98-107)
--- NOTE | 2017-07-10 08:33 | Progress Note ---
Assessment and Plan Assessment * Anuric BRITTANY secondary to ATN - FeNa 8.5% --Renal u/s; nml size - right 13.5, left 13.3; +echogenic kidneys * Metabolic acidosis - DKA vs lactic acidosis * History of drug use * DKA * Hypertension * AMS * Hepatitis C Recommendations * Hemodialysis today; no UF today * Continue IVF for hydration * Await work up: urine for eosinophils, serologies * Strict intake and output * Avoid nephrotoxins * Adjust meds for GFR less than 10 Subjective Date of service: 07/10/17 Principal diagnosis: DKA, hypoxia Interval history: No acute events overnight. Per RN, patient without UOP. Objective - Vital Signs Vital signs: Vital Signs - 12hr 07/09/17 07/09/17 07/09/17 20:41 20:51 21:00 Temperature Pulse Rate 100 H 96 H 90 Pulse Rate [ Anterior Bilateral Throughout] Pulse Rate [ Left] Respiratory 24 25 H 26 H Rate Respiratory Rate [Anterior Bilateral Throughout] Blood Pressure 135/95 130/92 134/92 O2 Sat by Pulse 98 98 99 Oximetry 07/09/17 07/09/17 07/09/17 21:11 21:21 21:30 Temperature Pulse Rate 104 H 101 H 96 H Pulse Rate [ Anterior Bilateral Throughout] Pulse Rate [ Left] Respiratory 29 H 30 H 25 H Rate Respiratory Rate [Anterior Bilateral Throughout] Blood Pressure 134/92 134/97 136/88 O2 Sat by Pulse 99 98 99 Oximetry 07/09/17 07/09/17 07/09/17 21:41 21:51 22:00 Temperature Pulse Rate 97 H 96 H 90 Pulse Rate [ Anterior Bilateral Throughout] Pulse Rate [ Left] Respiratory 19 32 H 24 Rate Respiratory Rate [Anterior Bilateral Throughout] Blood Pressure 136/88 134/92 141/95 O2 Sat by Pulse 99 99 99 Oximetry 07/09/17 07/09/17 07/09/17 22:11 22:21 22:30 Temperature Pulse Rate 98 H 94 H 97 H Pulse Rate [ Anterior Bilateral Throughout] Pulse Rate [ Left] Respiratory 28 H 27 H 29 H Rate Respiratory Rate [Anterior Bilateral Throughout] Blood Pressure 141/95 135/92 128/89 O2 Sat by Pulse 99 99 99 Oximetry 07/09/17 07/09/17 07/09/17 22:41 22:51 23:00 Temperature Pulse Rate 101 H 105 H 97 H Pulse Rate [ Anterior Bilateral Throughout] Pulse Rate [ Left] Respiratory 25 H 16 30 H Rate Respiratory Rate [Anterior Bilateral Throughout] Blood Pressure 128/89 130/87 122/72 O2 Sat by Pulse 99 100 100 Oximetry 07/09/17 07/09/17 07/09/17 23:09 23:11 23:21 Temperature Pulse Rate 104 H 100 H 101 H Pulse Rate [ Anterior Bilateral Throughout] Pulse Rate [ Left] Respiratory 30 H 25 H 20 Rate Respiratory Rate [Anterior Bilateral Throughout] Blood Pressure 122/72 122/72 129/82 O2 Sat by Pulse 100 99 100 Oximetry 07/09/17 07/09/17 07/09/17 23:30 23:41 23:51 Temperature Pulse Rate 95 H 90 89 Pulse Rate [ Anterior Bilateral Throughout] Pulse Rate [ Left] Respiratory 18 25 H 23 Rate Respiratory Rate [Anterior Bilateral Throughout] Blood Pressure 131/90 131/90 139/95 O2 Sat by Pulse 99 95 99 Oximetry 07/10/17 07/10/17 07/10/17 00:00 00:11 00:21 Temperature 98.0 F Pulse Rate 101 H 98 H 111 H Pulse Rate [ Anterior Bilateral Throughout] Pulse Rate [ Left] Respiratory 27 H 27 H 19 Rate Respiratory Rate [Anterior Bilateral Throughout] Blood Pressure 142/94 142/94 137/92 O2 Sat by Pulse 100 100 99 Oximetry 07/10/17 07/10/17 07/10/17 00:30 00:41 00:51 Temperature Pulse Rate 97 H 105 H 98 H Pulse Rate [ Anterior Bilateral Throughout] Pulse Rate [ Left] Respiratory 28 H 24 25 H Rate Respiratory Rate [Anterior Bilateral Throughout] Blood Pressure 136/86 136/86 129/88 O2 Sat by Pulse 99 100 Oximetry 07/10/17 07/10/17 07/10/17 01:00 01:11 01:21 Temperature Pulse Rate 90 101 H 107 H Pulse Rate [ Anterior Bilateral Throughout] Pulse Rate [ Left] Respiratory 22 15 22 Rate Respiratory Rate [Anterior Bilateral Throughout] Blood Pressure 134/87 134/87 139/90 O2 Sat by Pulse 100 95 Oximetry 07/10/17 07/10/17 07/10/17 01:30 01:41 01:51 Temperature Pulse Rate 95 H 101 H 97 H Pulse Rate [ Anterior Bilateral Throughout] Pulse Rate [ Left] Respiratory 26 H 26 H 16 Rate Respiratory Rate [Anterior Bilateral Throughout] Blood Pressure 136/88 136/88 137/85 O2 Sat by Pulse 100 100 Oximetry 07/10/17 07/10/17 07/10/17 02:00 02:11 02:21 Temperature Pulse Rate 102 H 104 H 100 H Pulse Rate [ 98 H Anterior Bilateral Throughout] Pulse Rate [ Left] Respiratory 28 H 15 28 H Rate Respiratory 20 Rate [Anterior Bilateral Throughout] Blood Pressure 129/94 129/94 123/93 O2 Sat by Pulse 100 100 100 Oximetry 07/10/17 07/10/17 07/10/17 02:30 02:40 02:51 Temperature Pulse Rate 106 H 103 H 88 Pulse Rate [ Anterior Bilateral Throughout] Pulse Rate [ Left] Respiratory 19 12 19 Rate Respiratory Rate [Anterior Bilateral Throughout] Blood Pressure 130/94 130/94 137/86 O2 Sat by Pulse 99 100 100 Oximetry 07/10/17 07/10/17 07/10/17 03:00 03:11 03:21 Temperature Pulse Rate 91 H 93 H 91 H Pulse Rate [ Anterior Bilateral Throughout] Pulse Rate [ Left] Respiratory 22 23 20 Rate Respiratory Rate [Anterior Bilateral Throughout] Blood Pressure 137/89 137/89 128/91 O2 Sat by Pulse 100 100 100 Oximetry 07/10/17 07/10/17 07/10/17 03:30 03:41 03:51 Temperature Pulse Rate 90 92 H 91 H Pulse Rate [ Anterior Bilateral Throughout] Pulse Rate [ Left] Respiratory 23 24 23 Rate Respiratory Rate [Anterior Bilateral Throughout] Blood Pressure 133/90 133/90 131/92 O2 Sat by Pulse 100 100 100 Oximetry 07/10/17 07/10/17 07/10/17 04:00 04:11 04:21 Temperature 98.5 F Pulse Rate 96 H 98 H 95 H Pulse Rate [ Anterior Bilateral Throughout] Pulse Rate [ 104 H Left] Respiratory 29 H 18 19 Rate Respiratory Rate [Anterior Bilateral Throughout] Blood Pressure 135/97 135/97 130/91 O2 Sat by Pulse 100 100 100 Oximetry 07/10/17 07/10/17 07/10/17 04:30 04:41 04:51 Temperature Pulse Rate 96 H 98 H 94 H Pulse Rate [ Anterior Bilateral Throughout] Pulse Rate [ Left] Respiratory 20 20 17 Rate Respiratory Rate [Anterior Bilateral Throughout] Blood Pressure 129/90 129/90 138/88 O2 Sat by Pulse 100 100 100 Oximetry 07/10/17 07/10/17 07/10/17 05:00 05:11 05:21 Temperature Pulse Rate 91 H 81 87 Pulse Rate [ Anterior Bilateral Throughout] Pulse Rate [ Left] Respiratory 22 21 23 Rate Respiratory Rate [Anterior Bilateral Throughout] Blood Pressure 134/87 134/87 141/81 O2 Sat by Pulse 100 100 100 Oximetry 07/10/17 07/10/17 07/10/17 05:30 05:41 05:51 Temperature Pulse Rate 105 H 94 H 81 Pulse Rate [ Anterior Bilateral Throughout] Pulse Rate [ Left] Respiratory 19 18 23 Rate Respiratory Rate [Anterior Bilateral Throughout] Blood Pressure 133/87 133/87 124/80 O2 Sat by Pulse 100 100 99 Oximetry 07/10/17 07/10/17 06:00 08:00 Temperature 97.4 F L Pulse Rate 83 Pulse Rate [ Anterior Bilateral Throughout] Pulse Rate [ Left] Respiratory 19 Rate Respiratory Rate [Anterior Bilateral Throughout] Blood Pressure 127/78 O2 Sat by Pulse 87 Oximetry - General Appearance General appearance: well-developed EENT: ATNC, other (MM dry) Neck: no JVD Respiratory: Present: Clear to Ascultation Cardiology: regular, S1S2 Gastrointestinal: normal, no tenderness, no distended Integumentary: warm and dry Neurologic: confused, other Musculoskeletal: other (no edema) Psychiatric: cooperative - Lab 07/10/17 05:04 07/10/17 05:04 Most recent lab results Calcium 7.0 mg/dL (8.4-10.2) L 07/10/17 05:04 Phosphorus 4.60 mg/dL (2.5-4.5) H D 07/07/17 13:10 Magnesium 1.80 mg/dL (1.7-2.3) 07/07/17 13:10 Urine Creatinine 55.0 mg/dL (0.1-20.0) H 07/09/17 09:28 Urine Sodium 108 mEq/L 07/10/17 00:00
[2017-07-10] MEDS ORDERED: NACL 0.9% 100 ML IV PRN (08:34)
[2017-07-10] MEDS ORDERED: HEPARIN 10,000 UNITS/10 ML IV PRN (08:35)
[2017-07-10] MEDS: HEPARIN SUB-Q SCH ×2 (10:22→22:56)
[2017-07-10] MEDS: PEPCID IV SCH (10:23)
--- NOTE | 2017-07-10 14:11 | Progress Note ---
Assessment and Plan Imp: 1. DKA 2. Amphetamine abuse +/- withdrawal 3. Metabolic encephalopathy 4. Volume depletion 5. Hyperkalemia 6. BRITTANY, worsening 7. Acute respiratory failure, hypoxia Rec: 1. Off insulin drip; IMS started long-acting Levemir; although diet has been ordered, he is too somnolent to eat anything right now so would continue low- dose D5W until he is able to take PO, to prevent hypoglycemia 2. Increased SOB, WOB, and some wheezing, likely volume overload from renal failure; cont. Duonebs; for HD again; repeat CXR 3. SubQ heparin; monitor platelets No family present Subjective Date of service: 07/10/17 Principal diagnosis: DKA, hypoxia Interval history: Agitated overnight. Now somnolent and poorly arousable after Haldol. + SOB and mild increased WOB. Had HD yesterday. Active Medications Albuterol (Proventil) 2.5 mg IH Q4H PRN PRN Reason: Shortness Of Breath Albuterol/Ipratropium (Duoneb *Not For Prn Use*) 1 ampul IH Q6HRT [facility] Last Admin: 07/10/17 09:12 Dose: 1 ampul Bisacodyl (Dulcolax) 10 mg OK QDAY PRN PRN Reason: constipation unrelieved by MOM Dextrose (D50w (25gm) Vial) 0 gm IV PRN PRN PRN Reason: Hypoglycemia Last Admin: 07/09/17 06:00 Dose: 25 gm Famotidine (Pepcid) 20 mg IV DAILY [facility] Last Admin: 07/10/17 10:23 Dose: 20 mg Heparin Sodium (Porcine) (Heparin) 5,000 unit SUB-Q BID [facility] Last Admin: 07/10/17 10:22 Dose: 5,000 unit Heparin Sodium (Porcine) (Heparin) 5,000 unit IV ROYS PRN PRN Reason: hemodialysis Heparin Sodium (Porcine) (Heparin 10,000 Units/10 Ml) 2,000 unit IV ROSY PRN PRN Reason: hemodialysis Hydrophilic Ointment (Vaseline Lip Therapy) 1 applic TP Q2HR PRN PRN Reason: Dry Lips Potassium Chloride (Kcl 10meq/100ml) 10 meq in 100 mls @ 100 mls/hr IV Q1H PRN PRN Reason: SEE LABEL COMMENTS Potassium Chloride (Kcl 20meq/100ml) 20 meq in 100 mls @ 100 mls/hr IV Q1H PRN PRN Reason: SEE LABEL COMMENTS Sodium Chloride (Nacl 0.9%) 100 mls @ 999 mls/hr IV ROSY PRN PRN Reason: Hypotension Sodium Chloride (Nacl 0.9%) 100 mls @ 999 mls/hr IV ROSY PRN PRN Reason: Hypotension Sodium Chloride (Nacl 0.9%) 100 mls @ 999 mls/hr IV ROSY PRN PRN Reason: Hypotension Dextrose (D5w) 1,000 mls @ 75 mls/hr IV DIRECT SHELIA Insulin Aspart (Novolog) 0 units SUB-Q Q6HR SHELIA PRN Reason: Protocol Insulin Detemir (Levemir) 10 units SUB-Q QHS SHELIA Lorazepam (Ativan) 2 mg IV Q4H PRN PRN Reason: Agitation Last Admin: 07/10/17 04:00 Dose: 2 mg Magnesium Hydroxide (Milk Of Magnesia) 30 ml PO Q4H PRN PRN Reason: Constipation Multi-Ingred Cream/Lotion/Oil/Oint (Artificial Tears Ophth Oint) 1 applic OU Q4HR PRN PRN Reason: Dry Eye(s) Objective Vital Signs - 12hr 07/10/17 07/10/17 07/10/17 02:11 02:21 02:30 Temperature Pulse Rate 104 H 100 H 106 H Pulse Rate [ Anterior Bilateral Throughout] Pulse Rate [ Left] Respiratory 15 28 H 19 Rate Respiratory Rate [Anterior Bilateral Throughout] Blood Pressure 129/94 123/93 130/94 O2 Sat by Pulse 100 100 99 Oximetry 07/10/17 07/10/17 07/10/17 02:40 02:51 03:00 Temperature Pulse Rate 103 H 88 91 H Pulse Rate [ Anterior Bilateral Throughout] Pulse Rate [ Left] Respiratory 12 19 22 Rate Respiratory Rate [Anterior Bilateral Throughout] Blood Pressure 130/94 137/86 137/89 O2 Sat by Pulse 100 100 100 Oximetry 07/10/17 07/10/17 07/10/17 03:11 03:21 03:30 Temperature Pulse Rate 93 H 91 H 90 Pulse Rate [ Anterior Bilateral Throughout] Pulse Rate [ Left] Respiratory 23 20 23 Rate Respiratory Rate [Anterior Bilateral Throughout] Blood Pressure 137/89 128/91 133/90 O2 Sat by Pulse 100 100 100 Oximetry 07/10/17 07/10/17 07/10/17 03:41 03:51 04:00 Temperature 98.5 F Pulse Rate 92 H 91 H 96 H Pulse Rate [ Anterior Bilateral Throughout] Pulse Rate [ 104 H Left] Respiratory 24 23 29 H Rate Respiratory Rate [Anterior Bilateral Throughout] Blood Pressure 133/90 131/92 135/97 O2 Sat by Pulse 100 100 100 Oximetry 07/10/17 07/10/17 07/10/17 04:11 04:21 04:30 Temperature Pulse Rate 98 H 95 H 96 H Pulse Rate [ Anterior Bilateral Throughout] Pulse Rate [ Left] Respiratory 18 19 20 Rate Respiratory Rate [Anterior Bilateral Throughout] Blood Pressure 135/97 130/91 129/90 O2 Sat by Pulse 100 100 100 Oximetry 07/10/17 07/10/17 07/10/17 04:41 04:51 05:00 Temperature Pulse Rate 98 H 94 H 91 H Pulse Rate [ Anterior Bilateral Throughout] Pulse Rate [ Left] Respiratory 20 17 22 Rate Respiratory Rate [Anterior Bilateral Throughout] Blood Pressure 129/90 138/88 134/87 O2 Sat by Pulse 100 100 100 Oximetry 07/10/17 07/10/17 07/10/17 05:11 05:21 05:30 Temperature Pulse Rate 81 87 105 H Pulse Rate [ Anterior Bilateral Throughout] Pulse Rate [ Left] Respiratory 21 23 19 Rate Respiratory Rate [Anterior Bilateral Throughout] Blood Pressure 134/87 141/81 133/87 O2 Sat by Pulse 100 100 100 Oximetry 07/10/17 07/10/17 07/10/17 05:41 05:51 06:00 Temperature Pulse Rate 94 H 81 83 Pulse Rate [ Anterior Bilateral Throughout] Pulse Rate [ Left] Respiratory 18 23 19 Rate Respiratory Rate [Anterior Bilateral Throughout] Blood Pressure 133/87 124/80 127/78 O2 Sat by Pulse 100 99 87 Oximetry 07/10/17 07/10/17 07/10/17 08:00 09:12 09:13 Temperature 97.4 F L Pulse Rate Pulse Rate [ 97 H Anterior Bilateral Throughout] Pulse Rate [ Left] Respiratory Rate Respiratory 22 Rate [Anterior Bilateral Throughout] Blood Pressure O2 Sat by Pulse 99 Oximetry 07/10/17 07/10/17 09:20 12:00 Temperature 97.4 F L Pulse Rate Pulse Rate [ 95 H Anterior Bilateral Throughout] Pulse Rate [ Left] Respiratory Rate Respiratory 24 Rate [Anterior Bilateral Throughout] Blood Pressure O2 Sat by Pulse Oximetry Constitutional: no acute distress, other (somnolent but arousable) Eyes: non-icteric ENT: oropharynx moist Neck: supple Effort: mildly labored Ascultation: Bilateral: wheezes Cardiovascular: regular rate and rhythm (no mrg) Gastrointestinal: normoactive bowel sounds, soft, non-tender, non-distended Integumentary: normal Extremities: no cyanosis, no edema, pink and warm Neurologic: normal mental status, non-focal exam, pupils equal and round, CN II- XII normal Psychiatric: mood appropriate, affect normal CBC and BMP: 07/10/17 05:04 07/10/17 05:04 ABG, PT/INR, D-dimer: ABG POC ABG pH 7.028 (7.35-7.45) L 07/07/17 10:29 POC ABG pCO2 11.9 (35-45) L 07/07/17 10:29 POC ABG pO2 129 (80-105) H 07/07/17 10:29 POC ABG HCO3 3.1 07/07/17 10:29 POC ABG Total CO2 < 5 07/07/17 10:29 POC ABG O2 Sat 97 07/07/17 10:29 PT/INR, D-dimer PT 16.3 Sec. (12.2-14.9) H 07/04/17 11:31 INR 1.25 (0.87-1.13) H 07/04/17 11:31 Abnormal lab findings: Abnormal Labs 07/04/17 07/04/17 07/04/17 12:45 12:45 12:45 WBC 21.3 H RBC 3.48 L Hgb 9.9 L Hct MCV 108 H MCHC 26 L RDW 16.3 H Plt Count Seg Neuts % (Manual) 89.0 H Lymphocytes % (Manual) 2.0 L Seg Neutrophils # Man 19.0 H Lymphocytes # (Manual) 0.4 L Monocytes # (Manual) 1.1 H POC ABG pH POC ABG pCO2 POC ABG pO2 VBG pH Sodium 132 L Potassium Chloride 90.9 L Carbon Dioxide 6 L* BUN 31 H Creatinine Glucose 1112 H* POC Glucose Lactic Acid Uric Acid Calcium 7.3 L Phosphorus 8.60 H Magnesium Urine WBC (Auto) Urine Creatinine Hepatitis C Antibody 1007/04/17 07/04/17 13:20 14:28 14:28 WBC RBC Hgb Hct MCV MCHC RDW Plt Count Seg Neuts % (Manual) Lymphocytes % (Manual) Seg Neutrophils # Man Lymphocytes # (Manual) Monocytes # (Manual) POC ABG pH 6.743 L POC ABG pCO2 53.9 H POC ABG pO2 259 H VBG pH Sodium 134 L Potassium 5.3 H Chloride 94.5 L Carbon Dioxide 6 L* BUN 31 H Creatinine Glucose 1060 H* POC Glucose Lactic Acid 3.20 H* Uric Acid Calcium 6.8 L Phosphorus Magnesium Urine WBC (Auto) Urine Creatinine Hepatitis C Antibody 07/04/17 07/04/17 07/04/17 15:56 18:00 18:23 WBC RBC Hgb Hct MCV MCHC RDW Plt Count Seg Neuts % (Manual) Lymphocytes % (Manual) Seg Neutrophils # Man Lymphocytes # (Manual) Monocytes # (Manual) POC ABG pH POC ABG pCO2 POC ABG pO2 VBG pH Sodium 133 L Potassium 3.5 L D Chloride 97.1 L Carbon Dioxide 7 L* 5 L* BUN 30 H 28 H Creatinine 1.6 H Glucose 1002 H* 988 H* POC Glucose > 500 H Lactic Acid Uric Acid Calcium 6.7 L 6.1 L Phosphorus Magnesium Urine WBC (Auto) Urine Creatinine Hepatitis C Antibody 07/04/17 07/04/17 07/04/17 20:05 20:29 21:21 WBC RBC Hgb Hct MCV MCHC RDW Plt Count Seg Neuts % (Manual) Lymphocytes % (Manual) Seg Neutrophils # Man Lymphocytes # (Manual) Monocytes # (Manual) POC ABG pH POC ABG pCO2 POC ABG pO2 VBG pH Sodium Potassium 3.3 L Chloride Carbon Dioxide 5 L* BUN 29 H Creatinine 1.8 H Glucose 542 H* POC Glucose 487 H 410 H Lactic Acid Uric Acid Calcium 6.5 L Phosphorus Magnesium Urine WBC (Auto) Urine Creatinine Hepatitis C Antibody 07/04/17 07/04/17 07/05/17 22:42 23:25 00:22 WBC RBC Hgb Hct MCV MCHC RDW Plt Count Seg Neuts % (Manual) Lymphocytes % (Manual) Seg Neutrophils # Man Lymphocytes # (Manual) Monocytes # (Manual) POC ABG pH POC ABG pCO2 POC ABG pO2 VBG pH Sodium Potassium Chloride Carbon Dioxide BUN Creatinine Glucose POC Glucose 360 H 338 H 276 H Lactic Acid Uric Acid Calcium Phosphorus Magnesium Urine WBC (Auto) Urine Creatinine Hepatitis C Antibody 07/05/17 07/05/17 07/05/17 01:23 03:06 04:30 WBC RBC Hgb Hct MCV MCHC RDW Plt Count Seg Neuts % (Manual) Lymphocytes % (Manual) Seg Neutrophils # Man Lymphocytes # (Manual) Monocytes # (Manual) POC ABG pH POC ABG pCO2 POC ABG pO2 VBG pH Sodium Potassium 3.0 L Chloride 118.7 H Carbon Dioxide 15 L D BUN 25 H Creatinine 1.6 H Glucose 63 L POC Glucose 245 H 213 H Lactic Acid Uric Acid Calcium 6.0 L Phosphorus Magnesium Urine WBC (Auto) Urine Creatinine Hepatitis C Antibody 07/05/17 07/05/17 07/05/17 06:04 06:52 08:09 WBC RBC Hgb Hct MCV MCHC RDW Plt Count Seg Neuts % (Manual) Lymphocytes % (Manual) Seg Neutrophils # Man Lymphocytes # (Manual) Monocytes # (Manual) POC ABG pH 7.179 L POC ABG pCO2 POC ABG pO2 263 H VBG pH Sodium Potassium Chloride Carbon Dioxide BUN Creatinine Glucose POC Glucose 159 H 174 H Lactic Acid Uric Acid Calcium Phosphorus Magnesium Urine WBC (Auto) Urine Creatinine Hepatitis C Antibody 07/05/17 07/05/17 07/06/17 17:56 23:59 01:00 WBC RBC Hgb Hct MCV MCHC RDW Plt Count Seg Neuts % (Manual) Lymphocytes % (Manual) Seg Neutrophils # Man Lymphocytes # (Manual) Monocytes # (Manual) POC ABG pH 7.231 L POC ABG pCO2 33.4 L POC ABG pO2 149 H VBG pH Sodium Potassium Chloride Carbon Dioxide BUN Creatinine Glucose POC Glucose 208 H 41 L Lactic Acid Uric Acid Calcium Phosphorus Magnesium Urine WBC (Auto) Urine Creatinine Hepatitis C Antibody 07/06/17 07/06/17 07/06/17 01:29 02:22 03:04 WBC 11.9 H RBC 3.43 L Hgb 9.9 L Hct 32.9 L MCV MCHC RDW 15.7 H Plt Count 123 L Seg Neuts % (Manual) Lymphocytes % (Manual) Seg Neutrophils # Man Lymphocytes # (Manual) Monocytes # (Manual) POC ABG pH POC ABG pCO2 POC ABG pO2 VBG pH Sodium Potassium Chloride Carbon Dioxide BUN Creatinine Glucose POC Glucose < 40 L 64 L Lactic Acid Uric Acid Calcium Phosphorus Magnesium Urine WBC (Auto) Urine Creatinine Hepatitis C Antibody 07/06/17 07/06/17 07/06/17 03:04 05:50 16:34 WBC RBC Hgb Hct MCV MCHC RDW Plt Count Seg Neuts % (Manual) Lymphocytes % (Manual) Seg Neutrophils # Man Lymphocytes # (Manual) Monocytes # (Manual) POC ABG pH POC ABG pCO2 POC ABG pO2 VBG pH Sodium Potassium Chloride 110.7 H Carbon Dioxide 13 L BUN 29 H Creatinine 2.7 H D Glucose POC Glucose 56 L 210 H Lactic Acid Uric Acid Calcium 6.4 L Phosphorus 2.00 L Magnesium 1.40 L Urine WBC (Auto) Urine Creatinine Hepatitis C Antibody 07/06/17 07/07/17 07/07/17 20:47 06:46 10:29 WBC RBC Hgb Hct MCV MCHC RDW Plt Count Seg Neuts % (Manual) Lymphocytes % (Manual) Seg Neutrophils # Man Lymphocytes # (Manual) Monocytes # (Manual) POC ABG pH 7.028 L POC ABG pCO2 11.9 L POC ABG pO2 129 H VBG pH Sodium Potassium Chloride Carbon Dioxide BUN Creatinine Glucose POC Glucose 200 H 351 H Lactic Acid Uric Acid Calcium Phosphorus Magnesium Urine WBC (Auto) Urine Creatinine Hepatitis C Antibody 07/07/17 07/07/17 07/07/17 10:45 11:06 13:10 WBC RBC Hgb Hct MCV MCHC RDW Plt Count Seg Neuts % (Manual) Lymphocytes % (Manual) Seg Neutrophils # Man Lymphocytes # (Manual) Monocytes # (Manual) POC ABG pH POC ABG pCO2 POC ABG pO2 VBG pH Sodium Potassium 5.4 H D 6.0 H Chloride 108.2 H Carbon Dioxide 2 L* D 5 L* BUN 43 H 44 H Creatinine 4.6 H D 4.5 H Glucose 349 H 347 H POC Glucose 248 H Lactic Acid Uric Acid Calcium 7.0 L 7.1 L Phosphorus 4.60 H D Magnesium Urine WBC (Auto) Urine Creatinine Hepatitis C Antibody 07/07/17 07/07/17 07/07/17 14:47 15:27 16:13 WBC RBC Hgb Hct MCV MCHC RDW Plt Count Seg Neuts % (Manual) Lymphocytes % (Manual) Seg Neutrophils # Man Lymphocytes # (Manual) Monocytes # (Manual) POC ABG pH POC ABG pCO2 POC ABG pO2 VBG pH 7.269 L Sodium Potassium 5.4 H Chloride 107.4 H Carbon Dioxide 5 L* BUN 44 H Creatinine 4.3 H Glucose 439 H POC Glucose 285 H Lactic Acid Uric Acid Calcium 6.9 L Phosphorus Magnesium Urine WBC (Auto) Urine Creatinine Hepatitis C Antibody 07/07/17 07/07/17 07/07/17 16:27 17:13 18:03 WBC RBC Hgb Hct MCV MCHC RDW Plt Count Seg Neuts % (Manual) Lymphocytes % (Manual) Seg Neutrophils # Man Lymphocytes # (Manual) Monocytes # (Manual) POC ABG pH POC ABG pCO2 POC ABG pO2 VBG pH Sodium Potassium Chloride 110.2 H Carbon Dioxide 8 L* BUN 44 H Creatinine 4.6 H Glucose 247 H POC Glucose 328 H 207 H Lactic Acid Uric Acid Calcium 6.7 L Phosphorus Magnesium Urine WBC (Auto) Urine Creatinine Hepatitis C Antibody 07/07/17 07/07/17 07/07/17 18:24 19:24 22:06 WBC RBC Hgb Hct MCV MCHC RDW Plt Count Seg Neuts % (Manual) Lymphocytes % (Manual) Seg Neutrophils # Man Lymphocytes # (Manual) Monocytes # (Manual) POC ABG pH POC ABG pCO2 POC ABG pO2 VBG pH Sodium Potassium Chloride 112.3 H Carbon Dioxide 12 L BUN 44 H Creatinine 4.9 H Glucose POC Glucose 140 H 129 H Lactic Acid Uric Acid Calcium 7.0 L Phosphorus Magnesium Urine WBC (Auto) Urine Creatinine Hepatitis C Antibody 07/07/17 07/07/17 07/07/17 23:15 23:17 23:57 WBC RBC Hgb Hct MCV MCHC RDW Plt Count Seg Neuts % (Manual) Lymphocytes % (Manual) Seg Neutrophils # Man Lymphocytes # (Manual) Monocytes # (Manual) POC ABG pH POC ABG pCO2 POC ABG pO2 VBG pH Sodium Potassium Chloride 111.8 H Carbon Dioxide 13 L BUN 46 H Creatinine 4.9 H Glucose 161 H POC Glucose 182 H 146 H Lactic Acid Uric Acid Calcium 7.1 L Phosphorus Magnesium Urine WBC (Auto) Urine Creatinine Hepatitis C Antibody 07/08/17 07/08/17 07/08/17 02:00 02:55 03:54 WBC RBC Hgb Hct MCV MCHC RDW Plt Count Seg Neuts % (Manual) Lymphocytes % (Manual) Seg Neutrophils # Man Lymphocytes # (Manual) Monocytes # (Manual) POC ABG pH POC ABG pCO2 POC ABG pO2 VBG pH Sodium Potassium Chloride Carbon Dioxide BUN Creatinine Glucose POC Glucose 125 H 180 H 157 H Lactic Acid Uric Acid Calcium Phosphorus Magnesium Urine WBC (Auto) Urine Creatinine Hepatitis C Antibody 07/08/17 07/08/17 07/08/17 04:45 06:27 08:05 WBC RBC Hgb Hct MCV MCHC RDW Plt Count Seg Neuts % (Manual) Lymphocytes % (Manual) Seg Neutrophils # Man Lymphocytes # (Manual) Monocytes # (Manual) POC ABG pH POC ABG pCO2 POC ABG pO2 VBG pH Sodium Potassium Chloride 113.1 H Carbon Dioxide 13 L BUN 46 H Creatinine 5.4 H Glucose POC Glucose 153 H 166 H Lactic Acid Uric Acid Calcium 7.0 L Phosphorus Magnesium Urine WBC (Auto) Urine Creatinine Hepatitis C Antibody 07/08/17 07/08/17 07/08/17 08:58 10:11 13:11 WBC RBC Hgb Hct MCV MCHC RDW Plt Count Seg Neuts % (Manual) Lymphocytes % (Manual) Seg Neutrophils # Man Lymphocytes # (Manual) Monocytes # (Manual) POC ABG pH POC ABG pCO2 POC ABG pO2 VBG pH Sodium Potassium Chloride Carbon Dioxide BUN Creatinine Glucose POC Glucose 118 H 117 H 142 H Lactic Acid Uric Acid Calcium Phosphorus Magnesium Urine WBC (Auto) Urine Creatinine Hepatitis C Antibody 07/08/17 07/08/17 07/08/17 13:21 14:31 15:57 WBC RBC Hgb Hct MCV MCHC RDW Plt Count Seg Neuts % (Manual) Lymphocytes % (Manual) Seg Neutrophils # Man Lymphocytes # (Manual) Monocytes # (Manual) POC ABG pH POC ABG pCO2 POC ABG pO2 VBG pH Sodium 135 L D Potassium 6.4 H* D Chloride Carbon Dioxide 12 L BUN 44 H Creatinine 4.8 H Glucose 524 H* POC Glucose 197 H 168 H Lactic Acid Uric Acid Calcium 6.5 L Phosphorus Magnesium Urine WBC (Auto) Urine Creatinine Hepatitis C Antibody 07/08/17 07/08/17 07/08/17 19:06 20:38 21:10 WBC RBC Hgb Hct MCV MCHC RDW Plt Count Seg Neuts % (Manual) Lymphocytes % (Manual) Seg Neutrophils # Man Lymphocytes # (Manual) Monocytes # (Manual) POC ABG pH POC ABG pCO2 POC ABG pO2 VBG pH Sodium Potassium Chloride Carbon Dioxide BUN Creatinine Glucose POC Glucose 149 H 120 H 108 H Lactic Acid Uric Acid Calcium Phosphorus Magnesium Urine WBC (Auto) Urine Creatinine Hepatitis C Antibody 07/08/17 07/09/17 07/09/17 23:32 00:12 01:12 WBC RBC Hgb Hct MCV MCHC RDW Plt Count Seg Neuts % (Manual) Lymphocytes % (Manual) Seg Neutrophils # Man Lymphocytes # (Manual) Monocytes # (Manual) POC ABG pH POC ABG pCO2 POC ABG pO2 VBG pH Sodium Potassium Chloride Carbon Dioxide BUN Creatinine Glucose POC Glucose 67 L 131 H 161 H Lactic Acid Uric Acid Calcium Phosphorus Magnesium Urine WBC (Auto) Urine Creatinine Hepatitis C Antibody 07/09/17 07/09/17 07/09/17 01:59 03:02 03:57 WBC RBC Hgb Hct MCV MCHC RDW Plt Count Seg Neuts % (Manual) Lymphocytes % (Manual) Seg Neutrophils # Man Lymphocytes # (Manual) Monocytes # (Manual) POC ABG pH POC ABG pCO2 POC ABG pO2 VBG pH Sodium Potassium Chloride Carbon Dioxide BUN Creatinine Glucose POC Glucose 253 H 128 H Lactic Acid Uric Acid 9.5 H Calcium Phosphorus Magnesium Urine WBC (Auto) Urine Creatinine Hepatitis C Antibody 07/09/17 07/09/17 07/09/17 03:57 03:57 06:23 WBC RBC 3.10 L Hgb 8.7 L Hct 27.5 L MCV MCHC RDW 16.9 H Plt Count Seg Neuts % (Manual) Lymphocytes % (Manual) Seg Neutrophils # Man Lymphocytes # (Manual) Monocytes # (Manual) POC ABG pH POC ABG pCO2 POC ABG pO2 VBG pH Sodium Potassium Chloride 112.0 H Carbon Dioxide 11 L BUN 48 H Creatinine 5.7 H Glucose POC Glucose 63 L Lactic Acid Uric Acid Calcium 7.4 L Phosphorus Magnesium Urine WBC (Auto) Urine Creatinine Hepatitis C Antibody 07/09/17 07/09/17 07/09/17 07:38 08:26 09:28 WBC RBC Hgb Hct MCV MCHC RDW Plt Count Seg Neuts % (Manual) Lymphocytes % (Manual) Seg Neutrophils # Man Lymphocytes # (Manual) Monocytes # (Manual) POC ABG pH POC ABG pCO2 POC ABG pO2 VBG pH Sodium Potassium Chloride Carbon Dioxide BUN Creatinine Glucose POC Glucose 175 H 206 H Lactic Acid Uric Acid Calcium Phosphorus Magnesium Urine WBC (Auto) 14.0 H Urine Creatinine Hepatitis C Antibody 07/09/17 07/09/17 07/09/17 09:28 09:28 10:21 WBC RBC Hgb Hct MCV MCHC RDW Plt Count Seg Neuts % (Manual) Lymphocytes % (Manual) Seg Neutrophils # Man Lymphocytes # (Manual) Monocytes # (Manual) POC ABG pH POC ABG pCO2 POC ABG pO2 VBG pH Sodium 129 L D Potassium Chloride Carbon Dioxide BUN Creatinine 5.6 H Glucose POC Glucose 124 H Lactic Acid Uric Acid Calcium Phosphorus Magnesium Urine WBC (Auto) Urine Creatinine 55.0 H Hepatitis C Antibody 07/09/17 07/09/17 07/09/17 10:37 12:31 13:49 WBC RBC Hgb Hct MCV MCHC RDW Plt Count Seg Neuts % (Manual) Lymphocytes % (Manual) Seg Neutrophils # Man Lymphocytes # (Manual) Monocytes # (Manual) POC ABG pH POC ABG pCO2 POC ABG pO2 VBG pH Sodium Potassium Chloride Carbon Dioxide BUN Creatinine Glucose POC Glucose 123 H 179 H Lactic Acid Uric Acid Calcium Phosphorus Magnesium Urine WBC (Auto) Urine Creatinine Hepatitis C Antibody Reactive A 07/09/17 07/09/17 07/09/17 14:49 15:29 18:46 WBC RBC Hgb Hct MCV MCHC RDW Plt Count Seg Neuts % (Manual) Lymphocytes % (Manual) Seg Neutrophils # Man Lymphocytes # (Manual) Monocytes # (Manual) POC ABG pH POC ABG pCO2 POC ABG pO2 VBG pH Sodium Potassium Chloride Carbon Dioxide BUN Creatinine Glucose POC Glucose 112 H 122 H 136 H Lactic Acid Uric Acid Calcium Phosphorus Magnesium Urine WBC (Auto) Urine Creatinine Hepatitis C Antibody 07/09/17 07/09/17 07/10/17 20:08 21:03 00:01 WBC RBC Hgb Hct MCV MCHC RDW Plt Count Seg Neuts % (Manual) Lymphocytes % (Manual) Seg Neutrophils # Man Lymphocytes # (Manual) Monocytes # (Manual) POC ABG pH POC ABG pCO2 POC ABG pO2 VBG pH Sodium Potassium Chloride Carbon Dioxide BUN Creatinine Glucose POC Glucose 158 H 132 H 125 H Lactic Acid Uric Acid Calcium Phosphorus Magnesium Urine WBC (Auto) Urine Creatinine Hepatitis C Antibody 07/10/17 07/10/17 07/10/17 01:00 02:03 03:08 WBC RBC Hgb Hct MCV MCHC RDW Plt Count Seg Neuts % (Manual) Lymphocytes % (Manual) Seg Neutrophils # Man Lymphocytes # (Manual) Monocytes # (Manual) POC ABG pH POC ABG pCO2 POC ABG pO2 VBG pH Sodium Potassium Chloride Carbon Dioxide BUN Creatinine Glucose POC Glucose 127 H 152 H 125 H Lactic Acid Uric Acid Calcium Phosphorus Magnesium Urine WBC (Auto) Urine Creatinine Hepatitis C Antibody 07/10/17 07/10/17 07/10/17 03:55 05:04 05:04 WBC RBC 2.81 L Hgb 8.3 L Hct 23.7 L MCV MCHC 35 H RDW 15.5 H Plt Count 131 L Seg Neuts % (Manual) Lymphocytes % (Manual) Seg Neutrophils # Man Lymphocytes # (Manual) Monocytes # (Manual) POC ABG pH POC ABG pCO2 POC ABG pO2 VBG pH Sodium Potassium Chloride Carbon Dioxide 21 L D BUN 27 H Creatinine 4.1 H Glucose POC Glucose 146 H Lactic Acid Uric Acid Calcium 7.0 L Phosphorus Magnesium Urine WBC (Auto) Urine Creatinine Hepatitis C Antibody 07/10/17 06:56 WBC RBC Hgb Hct MCV MCHC RDW Plt Count Seg Neuts % (Manual) Lymphocytes % (Manual) Seg Neutrophils # Man Lymphocytes # (Manual) Monocytes # (Manual) POC ABG pH POC ABG pCO2 POC ABG pO2 VBG pH Sodium Potassium Chloride Carbon Dioxide BUN Creatinine Glucose POC Glucose 140 H Lactic Acid Uric Acid Calcium Phosphorus Magnesium Urine WBC (Auto) Urine Creatinine Hepatitis C Antibody Chest x-ray: report reviewed, image reviewed
[2017-07-10] MEDS ORDERED: NACL 0.9% 1000 ML 2,000 ML ONE (15:22)
--- NOTE | 2017-07-10 15:47 | Progress Note ---
Assessment and Plan Assessment and plan: Patient is a 42-year-old man with h/o IDDM, diabetic ketoacidosis and drug abuse , patient brought to the hospital by EMS for altered mental status. Patient found unresponsive in a local hotel, for uncertain duration of time, uncertain mechanism, with evidence of drug paraphernalia. As per EMS, patient initially hypotensive, hypothermic, hyperglycemic, and hypoxic in the field. EMS further reported that they gave 2 mg of Narcan in the field, which somewhat improved the patient's mental status. Upon arrival to the ER, the patient was altered, combative, pulling at his leads/monitor, trying to get out of the stretcher, trying to pull out his IV. Patient was clearly a danger to himself and other patients; therefore, he was intubated. Patient was found to be hyperglycemic, glucose of greater than 500, hypothermic with a core rectal temperature of 93, with blood pressure in the low 100s. Patient started empirically on the sepsis pathway, as well as the DKA pathway. Extubated 07/06/17 - SIRS, poa and No Sepsis without a source - DKA (diabetic ketoacidoses), resolved, with episdoes of hypoglycemia: start sliding scale and residential insuline. Continue d5w at 42cc/hr, considering possible volume overload - Acute toxic metabolic encephalopathy due to amphetamine: Unchanged - Metabolic acidosis, due to DKA - Acute respiratory failure, extubated 07/06/17 Supplemental oxygen, nebs, wean vent as tolerated, daily SBT, pulmonary consulted, wean vent as tolerated, wean sedation and attempt extubation - Amphetamine Abuse: supportative care -ARF, vasomotor nephropathy: consult renal, temporal dialysis catheter placed. --DVT prophylaxis: scd, stop heparin due to drop in plt Discussed with mother at bedside. Will transfer to medical floor. Aspiration precautions. The high probability of a clinically significant, sudden or life threatening deterioration of the [Neurology, Nephrology, endocrine] system(s) required my full and direct attention, intervention and personal management. The aggregate critical care time was [35] minutes. This time is in addition to time spent performing reported procedures but includes the following: [x] Data Review and interpretation [x] Patient assessment and monitoring of vital signs [x] Documentation [x] Medication orders and management History Interval history: patient seen and examined, In no acute distress, still lethargic. no other adverse event reported by nursing staff Hospitalist Physical - Physical exam Narrative exam: GEN: ill appearing, nad, somnolent HEENT: NCAT, EOMI, PERRL, OP Clear NECK: supple, no adenopathy, no thyromegaly, no JVD CVS/HEART: regular tachy, NORMAL S1S2, NO JVD, pulses present bilaterally CHEST/LUNGS: CTA B, Symmetrical chest expansion, good air entry bilaterally GI/Abdomen: soft, NTND, good bowel sounds, no guarding or rebound /Bladder: no suprapubic tenderness, no CVA or paraspinal tenderness EXT/Skin: no c/c/e, no obvious rash MSK: FROM x 4 Neuro: unable to accurately assess, Psych: calm - Constitutional Vitals: Temp Pulse Resp BP Pulse Ox 97.7 F 111 H 27 H 102/38 99 07/10/17 14:55 07/10/17 15:30 07/10/17 14:59 07/10/17 15:30 07/10/17 09:13 General appearance: Present: no acute distress. Absent: other Results - Labs CBC & Chem 7: 07/10/17 05:04 07/10/17 05:04 Labs: Laboratory Last Values WBC 5.4 K/mm3 (4.5-11.0) 07/10/17 05:04 RBC 2.81 M/mm3 (3.65-5.03) L 07/10/17 05:04 Hgb 8.3 gm/dl (11.8-15.2) L 07/10/17 05:04 Hct 23.7 % (35.5-45.6) L 07/10/17 05:04 MCV 84 fl (84-94) 07/10/17 05:04 MCH 30 pg (28-32) 07/10/17 05:04 MCHC 35 % (32-34) H 07/10/17 05:04 RDW 15.5 % (13.2-15.2) H 07/10/17 05:04 Plt Count 131 K/mm3 (140-440) L 07/10/17 05:04 Add Manual Diff Complete 07/04/17 12:45 Total Counted 100 07/04/17 12:45 Seg Neuts % (Manual) 89.0 % (40.0-70.0) H 07/04/17 12:45 Band Neutrophils % 4.0 % 07/04/17 12:45 Lymphocytes % (Manual) 2.0 % (13.4-35.0) L 07/04/17 12:45 Reactive Lymphs % (Man) 0 % 07/04/17 12:45 Monocytes % (Manual) 5.0 % (0.0-7.3) 07/04/17 12:45 Eosinophils % (Manual) 0 % (0.0-4.3) 07/04/17 12:45 Basophils % (Manual) 0 % (0.0-1.8) 07/04/17 12:45 Metamyelocytes % 0 % 07/04/17 12:45 Myelocytes % 0 % 07/04/17 12:45 Promyelocytes % 0 % 07/04/17 12:45 Blast Cells % 0 % 07/04/17 12:45 Nucleated RBC % Not Reportable 07/04/17 12:45 Seg Neutrophils # Man 19.0 K/mm3 (1.8-7.7) H 07/04/17 12:45 Band Neutrophils # 0.9 K/mm3 07/04/17 12:45 Lymphocytes # (Manual) 0.4 K/mm3 (1.2-5.4) L 07/04/17 12:45 Abs React Lymphs (Man) 0.0 K/mm3 07/04/17 12:45 Monocytes # (Manual) 1.1 K/mm3 (0.0-0.8) H 07/04/17 12:45 Eosinophils # (Manual) 0.0 K/mm3 (0.0-0.4) 07/04/17 12:45 Basophils # (Manual) 0.0 K/mm3 (0.0-0.1) 07/04/17 12:45 Metamyelocytes # 0.0 K/mm3 07/04/17 12:45 Myelocytes # 0.0 K/mm3 07/04/17 12:45 Promyelocytes # 0.0 K/mm3 07/04/17 12:45 Blast Cells # 0.0 K/mm3 07/04/17 12:45 WBC Morphology Not Reportable 07/04/17 12:45 Hypersegmented Neuts Not Reportable 07/04/17 12:45 Hyposegmented Neuts Not Reportable 07/04/17 12:45 Hypogranular Neuts Not Reportable 07/04/17 12:45 Smudge Cells Not Reportable 07/04/17 12:45 Toxic Granulation Not Reportable 07/04/17 12:45 Toxic Vacuolation Not Reportable 07/04/17 12:45 Dohle Bodies Not Reportable 07/04/17 12:45 Pelger-Huet Anomaly Not Reportable 07/04/17 12:45 Deyanira Rods Not Reportable 07/04/17 12:45 Platelet Estimate Appears normal 07/04/17 12:45 Clumped Platelets Not Reportable 07/04/17 12:45 Plt Clumps, EDTA Not Reportable 07/04/17 12:45 Large Platelets Not Reportable 07/04/17 12:45 Giant Platelets Not Reportable 07/04/17 12:45 Platelet Satelliting Not Reportable 07/04/17 12:45 Plt Morphology Comment Not Reportable 07/04/17 12:45 RBC Morphology Not Reportable 07/04/17 12:45 Dimorphic RBCs Not Reportable 07/04/17 12:45 Polychromasia Not Reportable 07/04/17 12:45 Hypochromasia Not Reportable 07/04/17 12:45 Poikilocytosis Not Reportable 07/04/17 12:45 Anisocytosis 2+ 07/04/17 12:45 Microcytosis Not Reportable 07/04/17 12:45 Macrocytosis 2+ 07/04/17 12:45 Spherocytes Not Reportable 07/04/17 12:45 Pappenheimer Bodies Not Reportable 07/04/17 12:45 Sickle Cells Not Reportable 07/04/17 12:45 Target Cells Not Reportable 07/04/17 12:45 Tear Drop Cells Not Reportable 07/04/17 12:45 Ovalocytes Not Reportable 07/04/17 12:45 Helmet Cells Not Reportable 07/04/17 12:45 [place] Bodies Not Reportable 07/04/17 12:45 [place] Rings Not Reportable 07/04/17 12:45 [place] Cells Not Reportable 07/04/17 12:45 Bite Cells Not Reportable 07/04/17 12:45 Crenated Cell Not Reportable 07/04/17 12:45 Elliptocytes Not Reportable 07/04/17 12:45 Acanthocytes (Spur) Not Reportable 07/04/17 12:45 Rouleaux Not Reportable 07/04/17 12:45 Hemoglobin C Crystals Not Reportable 07/04/17 12:45 Schistocytes Not Reportable 07/04/17 12:45 Malaria parasites Not Reportable 07/04/17 12:45 Andrei Bodies Not Reportable 07/04/17 12:45 Hem Pathologist Commnt No 07/04/17 12:45 PT 16.3 Sec. (12.2-14.9) H 07/04/17 11:31 INR 1.25 (0.87-1.13) H 07/04/17 11:31 APTT 25.3 Sec. (24.2-36.6) 07/04/17 11:31 POC ABG pH 7.028 (7.35-7.45) L 07/07/17 10:29 POC ABG pCO2 11.9 (35-45) L 07/07/17 10:29 POC ABG pO2 129 (80-105) H 07/07/17 10:29 POC ABG HCO3 3.1 07/07/17 10:29 POC ABG Total CO2 < 5 07/07/17 10:29 POC ABG O2 Sat 97 07/07/17 10:29 POC ABG Base Excess -28 07/07/17 10:29 VBG pH 7.269 (7.320-7.420) L 07/07/17 16:13 FiO2 21 % 07/07/17 10:29 Sodium 138 mmol/L (137-145) D 07/10/17 05:04 Potassium 4.0 mmol/L (3.6-5.0) 07/10/17 05:04 Chloride 103.8 mmol/L (98-107) 07/10/17 05:04 Carbon Dioxide 21 mmol/L (22-30) L D 07/10/17 05:04 Anion Gap 17 mmol/L 07/10/17 05:04 BUN 27 mg/dL (9-20) H 07/10/17 05:04 Creatinine 4.1 mg/dL (0.8-1.5) H 07/10/17 05:04 Estimated GFR 16 ml/min 07/10/17 05:04 BUN/Creatinine Ratio 7 % 07/10/17 05:04 Glucose 94 mg/dL (75-100) 07/10/17 05:04 POC Glucose 140 (70-105) H 07/10/17 06:56 Osmolality 304 Mosm/kg 07/09/17 03:57 Lactic Acid 3.20 mmol/L (0.7-2.0) H* 07/04/17 14:28 Uric Acid 9.5 mg/dL (3.5-7.6) H 07/09/17 03:57 Calcium 7.0 mg/dL (8.4-10.2) L 07/10/17 05:04 Phosphorus 4.60 mg/dL (2.5-4.5) H D 07/07/17 13:10 Magnesium 1.80 mg/dL (1.7-2.3) 07/07/17 13:10 Total Bilirubin < 0.20 mg/dL (0.1-1.2) 07/04/17 11:25 AST 50 units/L (5-40) H 07/04/17 11:25 ALT 69 units/L (7-56) H 07/04/17 11:25 Alkaline Phosphatase 266 units/L (35-129) H 07/04/17 11:25 Total Creatine Kinase 168 units/L (55-170) 07/08/17 13:21 Total Protein 6.4 g/dL (6.3-8.2) 07/04/17 11:25 Albumin 3.2 g/dL (3.9-5) L 07/04/17 11:25 Albumin/Globulin Ratio 1.0 % 07/04/17 11:25 TSH 1.810 mlU/mL (0.270-4.200) 07/04/17 11:25 Urine Color Yellow (Yellow) 07/09/17 09:28 Urine Turbidity Clear (Clear) 07/09/17 09:28 Urine pH 5.0 (5.0-7.0) 07/09/17 09:28 Ur Specific [place] 1.010 (1.003-1.030) 07/09/17 09:28 Urine Protein 100 mg/dl mg/dL (Negative) 07/09/17 09:28 Urine Glucose (UA) 150 mg/dL (Negative) 07/09/17 09:28 Urine Ketones Neg mg/dL (Negative) 07/09/17 09:28 Urine Blood Lg (Negative) 07/09/17 09:28 Urine Nitrite Neg (Negative) 07/09/17 09:28 Urine Bilirubin Neg (Negative) 07/09/17 09:28 Urine Urobilinogen < 2.0 mg/dL (<2.0) 07/09/17 09:28 Ur Leukocyte Esterase Mod (Negative) 07/09/17 09:28 Urine WBC (Auto) 14.0 /HPF (0.0-6.0) H 07/09/17 09:28 Urine RBC (Auto) > 182.0 /HPF (0.0-6.0) 07/09/17 09:28 U Epithel Cells (Auto) 1.0 /HPF (0-13.0) 07/09/17 09:28 Urine Bacteria (Auto) 1+ /HPF (Negative) 07/09/17 09:28 Amorphous Crystals Few 07/09/17 09:28 Urine Mucus Few /HPF 07/09/17 09:28 Urine Eosinophils None seen (None Seen) 07/09/17 10:10 Urine Creatinine 55.0 mg/dL (0.1-20.0) H 07/09/17 09:28 Urine Sodium 108 mEq/L 07/10/17 00:00 Fraction Sodium Excret 8.5 07/09/17 09:28 Salicylates < 0.3 mg/dL (2.8-20.0) L 07/04/17 11:25 Urine Opiates Screen Presumptive negative 07/04/17 12:38 Urine Methadone Screen Presumptive negative 07/04/17 12:38 Acetaminophen < 15.0 ug/mL (10.0-30.0) 07/04/17 11:25 Ur Barbiturates Screen Presumptive negative 07/04/17 12:38 Ur Phencyclidine Scrn Presumptive negative 07/04/17 12:38 Ur Amphetamines Screen Presumptive positive 07/04/17 12:38 U Benzodiazepines Scrn Presumptive negative 07/04/17 12:38 Urine Cocaine Screen Presumptive negative 07/04/17 12:38 U Marijuana (THC) Screen Presumptive negative 07/04/17 12:38 Drugs of Abuse Note Disclamer 07/04/17 12:38 Plasma/Serum Alcohol < 0.01 gm% (0-0.07) 07/04/17 11:25 Hepatitis A IgM Ab Non-reactive (NonReactive) 07/09/17 10:37 Hep Bs Antigen Non-reactive (Negative) 07/09/17 10:37 Hep B Core IgM Ab Non-reactive (NonReactive) 07/09/17 10:37 Hepatitis C Antibody Reactive (NonReactive) A 07/09/17 10:37
[2017-07-10] MEDS ORDERED: D5W 1,000 ML IV SCH (16:00)
[2017-07-10] MEDS: HEPARIN IV PRN (18:28)
[2017-07-10] MEDS: NOVOLOG SUB-Q SCH ×3 (19:47→23:26)
[2017-07-10] MEDS ORDERED: LEVEMIR SUB-Q SCH ×2 (22:00)
[2017-07-11] MEDS: DUONEB *Not for PRN Use IH SCH ×4 (01:56→19:15)
[2017-07-11] MEDS: NOVOLOG SUB-Q SCH ×3 (06:33→18:15)
[2017-07-11] MEDS: D50W (25GM) Vial IV PRN (06:42)
[2017-07-11 07:01] LABS: Hematocrit 23.3 % (35.5-45.6); Hemoglobin 7.6 gm/dl (11.8-15.2); Mean Corpuscular HGB Conc 33 % (32-34); Mean Corpuscular Hemoglobin 27 pg (28-32); Mean Corpuscular Volume 84 fl (84-94); Platelet Count 127 K/mm3 (140-440); Red Blood Count 2.76 M/mm3 (3.65-5.03); Red Cell Distribution Width 15.3 % (13.2-15.2); White Blood Count 4.7 K/mm3 (4.5-11.0)
[2017-07-11 07:10] LABS: Calcium 7.2 mg/dL (8.4-10.2); Chloride 99.6 mmol/L (98-107); Potassium 3.6 mmol/L (3.6-5.0)
--- NOTE | 2017-07-11 07:32 | XRay Report ---
AP CHEST: HISTORY: Shortness of breath The endotracheal tube has been removed since 07/05/17. The left arm PICC remains in the same position. Mild pulmonary venous congestion has developed since the previous exam. No consolidation, large pleural effusion or pneumothorax. Heart size remains within normal limits. IMPRESSION: Mild pulmonary venous congestion.
--- NOTE | 2017-07-11 08:12 | Progress Note ---
Assessment and Plan Assessment and plan: Patient is a 42-year-old man with h/o IDDM, diabetic ketoacidosis and drug abuse , patient brought to the hospital by EMS for altered mental status. Patient found unresponsive in a local hotel, for uncertain duration of time, uncertain mechanism, with evidence of drug paraphernalia. As per EMS, patient initially hypotensive, hypothermic, hyperglycemic, and hypoxic in the field. EMS further reported that they gave 2 mg of Narcan in the field, which somewhat improved the patient's mental status. Upon arrival to the ER, the patient was altered, combative, pulling at his leads/monitor, trying to get out of the stretcher, trying to pull out his IV. Patient was clearly a danger to himself and other patients; therefore, he was intubated. Patient was found to be hyperglycemic, glucose of greater than 500, hypothermic with a core rectal temperature of 93, with blood pressure in the low 100s. Patient started empirically on the sepsis pathway, as well as the DKA pathway. Extubated 07/06/17 - SIRS, poa and No Sepsis without a source * Blood cultures remain negative. - DKA (diabetic ketoacidoses), resolved, with episodes of hypoglycemia: * Resolved - Diabetes mellitus -Uncontrolled and Poor Compliance * Continue d5w at 42cc/hr, considering possible volume overload. Discontinue long acting insulin. * The patient tolerated diet last p.m. he is still very lethargic and somnolent. - Acute toxic metabolic encephalopathy due to amphetamine: Unchanged * Aspiration precautions * Counseling when more awake - Metabolic acidosis: * due to DKA- Now resolved - Acute respiratory failure, extubated 07/06/17 * Supplemental oxygen, nebs, -Amphetamine Abuse: * supportative care -ARF, vasomotor nephropathy: * consult renal, temporal dialysis catheter placed and started on dialysis. Patient pulled out overnight, await replacement . * Good urine output otherwise was not quantified for documentation. We'll await follow-up by nephrology to see if patient needs a replacement of the line or if renal recovery is possible -Thrombocytopenia * Continue to monitor --DVT prophylaxis: scd, stop heparin due to drop in plt Plan of care discussed with the patient. History Interval history: patient seen and examined, lethargic but more awake compared to yesterday. Was briefly disoriented last night and had pulled out lines. otherwises oriented x2 still with intermittent delirium per nursing staff. Tolerated diet yesterday night. Hospitalist Physical - Physical exam Narrative exam: VITAL SIGNS: Reviewed. GENERAL: The patient appeared well nourished and normally developed. Vital signs as documented. HEAD: No signs of head trauma. EYES: Pupils are equal. Extraocular motions intact. EARS: Hearing grossly intact. MOUTH: Oropharynx is normal. NECK: No adenopathy, no JVD. CHEST: Chest with clear breath sounds bilaterally. No wheezes, rales, or rhonchi. CARDIAC: Regular rate and rhythm. S1 and S2, without murmurs, gallops, or rubs. VASCULAR: No Edema. Peripheral pulses normal and equal in all extremities. ABDOMEN: Soft, without detectable tenderness. No sign of distention. No rebound or guarding, and no masses palpated. Bowel Sounds normal. MUSCULOSKELETAL: Good range of motion of all major joints. Extremities without clubbing, cyanosis or edema. NEUROLOGIC EXAM: Alert and oriented x 2. No focal sensory or strength deficits. Still lethargic intermittent delirium per nursing staff. Speech slow. Follows some commands. PSYCHIATRIC: Mood depressed SKIN: Multiple skin tattoos - Constitutional Vitals: Temp Pulse Resp BP Pulse Ox 97.3 F L 88 18 120/75 96 07/11/17 03:45 07/11/17 03:45 07/11/17 03:45 07/11/17 03:45 07/11/17 03:45 General appearance: Present: no acute distress. Absent: other Results - Labs CBC & Chem 7: 07/11/17 06:00 07/11/17 06:00 Labs: Laboratory Last Values WBC 4.7 K/mm3 (4.5-11.0) 07/11/17 06:00 RBC 2.76 M/mm3 (3.65-5.03) L 07/11/17 06:00 Hgb 7.6 gm/dl (11.8-15.2) L 07/11/17 06:00 Hct 23.3 % (35.5-45.6) L 07/11/17 06:00 MCV 84 fl (84-94) 07/11/17 06:00 MCH 27 pg (28-32) L 07/11/17 06:00 MCHC 33 % (32-34) 07/11/17 06:00 RDW 15.3 % (13.2-15.2) H 07/11/17 06:00 Plt Count 127 K/mm3 (140-440) L 07/11/17 06:00 Add Manual Diff Complete 07/04/17 12:45 Total Counted 100 07/04/17 12:45 Seg Neuts % (Manual) 89.0 % (40.0-70.0) H 07/04/17 12:45 Band Neutrophils % 4.0 % 07/04/17 12:45 Lymphocytes % (Manual) 2.0 % (13.4-35.0) L 07/04/17 12:45 Reactive Lymphs % (Man) 0 % 07/04/17 12:45 Monocytes % (Manual) 5.0 % (0.0-7.3) 07/04/17 12:45 Eosinophils % (Manual) 0 % (0.0-4.3) 07/04/17 12:45 Basophils % (Manual) 0 % (0.0-1.8) 07/04/17 12:45 Metamyelocytes % 0 % 07/04/17 12:45 Myelocytes % 0 % 07/04/17 12:45 Promyelocytes % 0 % 07/04/17 12:45 Blast Cells % 0 % 07/04/17 12:45 Nucleated RBC % Not Reportable 07/04/17 12:45 Seg Neutrophils # Man 19.0 K/mm3 (1.8-7.7) H 07/04/17 12:45 Band Neutrophils # 0.9 K/mm3 07/04/17 12:45 Lymphocytes # (Manual) 0.4 K/mm3 (1.2-5.4) L 07/04/17 12:45 Abs React Lymphs (Man) 0.0 K/mm3 07/04/17 12:45 Monocytes # (Manual) 1.1 K/mm3 (0.0-0.8) H 07/04/17 12:45 Eosinophils # (Manual) 0.0 K/mm3 (0.0-0.4) 07/04/17 12:45 Basophils # (Manual) 0.0 K/mm3 (0.0-0.1) 07/04/17 12:45 Metamyelocytes # 0.0 K/mm3 07/04/17 12:45 Myelocytes # 0.0 K/mm3 07/04/17 12:45 Promyelocytes # 0.0 K/mm3 07/04/17 12:45 Blast Cells # 0.0 K/mm3 07/04/17 12:45 WBC Morphology Not Reportable 07/04/17 12:45 Hypersegmented Neuts Not Reportable 07/04/17 12:45 Hyposegmented Neuts Not Reportable 07/04/17 12:45 Hypogranular Neuts Not Reportable 07/04/17 12:45 Smudge Cells Not Reportable 07/04/17 12:45 Toxic Granulation Not Reportable 07/04/17 12:45 Toxic Vacuolation Not Reportable 07/04/17 12:45 Dohle Bodies Not Reportable 07/04/17 12:45 Pelger-Huet Anomaly Not Reportable 07/04/17 12:45 Deyanira Rods Not Reportable 07/04/17 12:45 Platelet Estimate Appears normal 07/04/17 12:45 Clumped Platelets Not Reportable 07/04/17 12:45 Plt Clumps, EDTA Not Reportable 07/04/17 12:45 Large Platelets Not Reportable 07/04/17 12:45 Giant Platelets Not Reportable 07/04/17 12:45 Platelet Satelliting Not Reportable 07/04/17 12:45 Plt Morphology Comment Not Reportable 07/04/17 12:45 RBC Morphology Not Reportable 07/04/17 12:45 Dimorphic RBCs Not Reportable 07/04/17 12:45 Polychromasia Not Reportable 07/04/17 12:45 Hypochromasia Not Reportable 07/04/17 12:45 Poikilocytosis Not Reportable 07/04/17 12:45 Anisocytosis 2+ 07/04/17 12:45 Microcytosis Not Reportable 07/04/17 12:45 Macrocytosis 2+ 07/04/17 12:45 Spherocytes Not Reportable 07/04/17 12:45 Pappenheimer Bodies Not Reportable 07/04/17 12:45 Sickle Cells Not Reportable 07/04/17 12:45 Target Cells Not Reportable 07/04/17 12:45 Tear Drop Cells Not Reportable 07/04/17 12:45 Ovalocytes Not Reportable 07/04/17 12:45 Helmet Cells Not Reportable 07/04/17 12:45 Hernandez-[place] Bodies Not Reportable 07/04/17 12:45 [place] Rings Not Reportable 07/04/17 12:45 [place] Cells Not Reportable 07/04/17 12:45 Bite Cells Not Reportable 07/04/17 12:45 Crenated Cell Not Reportable 07/04/17 12:45 Elliptocytes Not Reportable 07/04/17 12:45 Acanthocytes (Spur) Not Reportable 07/04/17 12:45 Rouleaux Not Reportable 07/04/17 12:45 Hemoglobin C Crystals Not Reportable 07/04/17 12:45 Schistocytes Not Reportable 07/04/17 12:45 Malaria parasites Not Reportable 07/04/17 12:45 Andrei Bodies Not Reportable 07/04/17 12:45 Hem Pathologist Commnt No 07/04/17 12:45 PT 16.3 Sec. (12.2-14.9) H 07/04/17 11:31 INR 1.25 (0.87-1.13) H 07/04/17 11:31 APTT 25.3 Sec. (24.2-36.6) 07/04/17 11:31 POC ABG pH 7.028 (7.35-7.45) L 07/07/17 10:29 POC ABG pCO2 11.9 (35-45) L 07/07/17 10:29 POC ABG pO2 129 (80-105) H 07/07/17 10:29 POC ABG HCO3 3.1 07/07/17 10:29 POC ABG Total CO2 < 5 07/07/17 10:29 POC ABG O2 Sat 97 07/07/17 10:29 POC ABG Base Excess -28 07/07/17 10:29 VBG pH 7.269 (7.320-7.420) L 07/07/17 16:13 FiO2 21 % 07/07/17 10:29 Sodium 138 mmol/L (137-145) 07/11/17 06:00 Potassium 3.6 mmol/L (3.6-5.0) 07/11/17 06:00 Chloride 99.6 mmol/L (98-107) 07/11/17 06:00 Carbon Dioxide 25 mmol/L (22-30) 07/11/17 06:00 Anion Gap 17 mmol/L 07/11/17 06:00 BUN 20 mg/dL (9-20) 07/11/17 06:00 Creatinine 3.5 mg/dL (0.8-1.5) H 07/11/17 06:00 Estimated GFR 19 ml/min 07/11/17 06:00 BUN/Creatinine Ratio 6 % 07/11/17 06:00 Glucose 40 mg/dL (75-100) L 07/11/17 06:00 POC Glucose 121 (70-105) H 07/11/17 07:20 Osmolality 304 Mosm/kg 07/09/17 03:57 Lactic Acid 3.20 mmol/L (0.7-2.0) H* 07/04/17 14:28 Uric Acid 9.5 mg/dL (3.5-7.6) H 07/09/17 03:57 Calcium 7.2 mg/dL (8.4-10.2) L 07/11/17 06:00 Phosphorus 4.60 mg/dL (2.5-4.5) H D 07/07/17 13:10 Magnesium 1.80 mg/dL (1.7-2.3) 07/07/17 13:10 Total Bilirubin < 0.20 mg/dL (0.1-1.2) 07/04/17 11:25 AST 50 units/L (5-40) H 07/04/17 11:25 ALT 69 units/L (7-56) H 07/04/17 11:25 Alkaline Phosphatase 266 units/L (35-129) H 07/04/17 11:25 Total Creatine Kinase 168 units/L (55-170) 07/08/17 13:21 Total Protein 6.4 g/dL (6.3-8.2) 07/04/17 11:25 Albumin 3.2 g/dL (3.9-5) L 07/04/17 11:25 Albumin/Globulin Ratio 1.0 % 07/04/17 11:25 TSH 1.810 mlU/mL (0.270-4.200) 07/04/17 11:25 Urine Color Yellow (Yellow) 07/09/17 09:28 Urine Turbidity Clear (Clear) 07/09/17 09:28 Urine pH 5.0 (5.0-7.0) 07/09/17 09:28 Ur Specific [place] 1.010 (1.003-1.030) 07/09/17 09:28 Urine Protein 100 mg/dl mg/dL (Negative) 07/09/17 09:28 Urine Glucose (UA) 150 mg/dL (Negative) 07/09/17 09:28 Urine Ketones Neg mg/dL (Negative) 07/09/17 09:28 Urine Blood Lg (Negative) 07/09/17 09:28 Urine Nitrite Neg (Negative) 07/09/17 09:28 Urine Bilirubin Neg (Negative) 07/09/17 09:28 Urine Urobilinogen < 2.0 mg/dL (<2.0) 07/09/17 09:28 Ur Leukocyte Esterase Mod (Negative) 07/09/17 09:28 Urine WBC (Auto) 14.0 /HPF (0.0-6.0) H 07/09/17 09:28 Urine RBC (Auto) > 182.0 /HPF (0.0-6.0) 07/09/17 09:28 U Epithel Cells (Auto) 1.0 /HPF (0-13.0) 07/09/17 09:28 Urine Bacteria (Auto) 1+ /HPF (Negative) 07/09/17 09:28 Amorphous Crystals Few 07/09/17 09:28 Urine Mucus Few /HPF 07/09/17 09:28 Urine Eosinophils None seen (None Seen) 07/09/17 10:10 Urine Creatinine 55.0 mg/dL (0.1-20.0) H 07/09/17 09:28 Urine Sodium 108 mEq/L 07/10/17 00:00 Fraction Sodium Excret 8.5 07/09/17 09:28 Salicylates < 0.3 mg/dL (2.8-20.0) L 07/04/17 11:25 Urine Opiates Screen Presumptive negative 07/04/17 12:38 Urine Methadone Screen Presumptive negative 07/04/17 12:38 Acetaminophen < 15.0 ug/mL (10.0-30.0) 07/04/17 11:25 Ur Barbiturates Screen Presumptive negative 07/04/17 12:38 Ur Phencyclidine Scrn Presumptive negative 07/04/17 12:38 Ur Amphetamines Screen Presumptive positive 07/04/17 12:38 U Benzodiazepines Scrn Presumptive negative 07/04/17 12:38 Urine Cocaine Screen Presumptive negative 07/04/17 12:38 U Marijuana (THC) Screen Presumptive negative 07/04/17 12:38 Drugs of Abuse Note Disclamer 07/04/17 12:38 Plasma/Serum Alcohol < 0.01 gm% (0-0.07) 07/04/17 11:25 Complement C3 66 mg/dL (90-180) L 07/09/17 09:28 Complement C4 15 mg/dL (16-47) L 07/09/17 09:28 Hepatitis A IgM Ab Non-reactive (NonReactive) 07/09/17 10:37 Hep Bs Antigen Non-reactive (Negative) 07/09/17 10:37 Hep B Core IgM Ab Non-reactive (NonReactive) 07/09/17 10:37 Hepatitis C Antibody Reactive (NonReactive) A 07/09/17 10:37
--- NOTE | 2017-07-11 08:32 | Progress Note ---
Assessment and Plan Assessment * Anuric BRITTANY secondary to ATN - FeNa 8.5% --Renal u/s; nml size - right 13.5, left 13.3; +echogenic kidneys * Metabolic acidosis - DKA vs lactic acidosis * History of drug use * DKA * Hypertension * AMS * Hepatitis C Recommendations * Vascular surgery to replace vascath today * No emergent need for HD today * Will plan for HD tomorrow * Continue IVF for hydration * Await work up: urine for eosinophils, serologies * Strict intake and output * Avoid nephrotoxins * Adjust meds for GFR less than 10 Subjective Date of service: 07/11/17 Principal diagnosis: DKA, hypoxia Interval history: Patient transferred to floor. Pulled out vas cath overnight. Objective - Vital Signs Vital signs: Vital Signs - 12hr 07/10/17 07/11/17 07/11/17 20:47 01:56 02:04 Temperature Pulse Rate Pulse Rate [ 97 H 96 H Anterior Bilateral Throughout] Respiratory Rate Respiratory 18 18 Rate [Anterior Bilateral Throughout] Blood Pressure Blood Pressure [Right] O2 Sat by Pulse 99 Oximetry 07/11/17 07/11/17 07/11/17 03:11 03:45 07:26 Temperature 97.3 F L 98.6 F Pulse Rate 102 H 88 77 Pulse Rate [ Anterior Bilateral Throughout] Respiratory 18 20 Rate Respiratory Rate [Anterior Bilateral Throughout] Blood Pressure 132/77 Blood Pressure 120/75 [Right] O2 Sat by Pulse 96 96 Oximetry - General Appearance General appearance: well-developed, well-nourished EENT: ATNC Respiratory: Present: Clear to Ascultation Cardiology: regular, S1S2 Gastrointestinal: no tenderness, no distended Integumentary: no rash, warm and dry Neurologic: other (somnolent) Musculoskeletal: other (no edema) Psychiatric: other - Lab 07/11/17 06:00 07/11/17 06:00 Most recent lab results Calcium 7.2 mg/dL (8.4-10.2) L 07/11/17 06:00 Phosphorus 4.60 mg/dL (2.5-4.5) H D 07/07/17 13:10 Magnesium 1.80 mg/dL (1.7-2.3) 07/07/17 13:10 Urine Creatinine 55.0 mg/dL (0.1-20.0) H 07/09/17 09:28 Urine Sodium 108 mEq/L 07/10/17 00:00
[2017-07-11 10:13] LABS: Myeloperoxidase Antibody <1.0 AI (<1.0)
--- NOTE | 2017-07-11 12:27 | Event Note ---
Date: 07/11/17 Contacted re: patient self-removed vascath. Discussed with Dr. Koo who informed me the patient still needs a vascath. Will bring down for another vascath. Discussed with the nurse that the patient will need a 1:1 sitter upon return or need to be transferred to the ICU to prevent another episode of self-removal of vascath.
[2017-07-11] MEDS ORDERED: HEPARIN/NS 5000 UNIT/500ML(CATH LAB) 500 ML IR ONE ×2 (13:14→13:15)
[2017-07-11] MEDS ORDERED: XYLOCAINE 2% INFILTRATI ONE (13:15)
[2017-07-11] MEDS ORDERED: SUBLIMAZE ONE (13:15)
[2017-07-11] MEDS ORDERED: VERSED ONE (13:15)
[2017-07-11] MEDS ORDERED: ANCEF/STERILE WATER 2 GM/20 ML 2 GM/20 ML SYRINGE IV ONE (13:16)
[2017-07-11] MEDS ORDERED: NACL 0.9% 250ML 250 ML ONE (13:16)
[2017-07-11] MEDS ORDERED: BENADRYL ONE (13:26)
[2017-07-11] MEDS: HEPARIN 10,000 UNITS/10 ML ONE ×2 (13:34→13:35)
--- NOTE | 2017-07-11 13:43 | Operative Report ---
Operative Report Operative Report: EXAM: 1. Ultrasound-guided puncture of the left common femoral vein 2. Fluoroscopic-guided placement of a left common femoral vein triple lumen nontunneled noncuffed hemodialysis catheter. DATE: 07/11/17 INDICATION: Acute renal failure requiring hemodialysis. MEDICATIONS: Please see nursing report for full details. DEVICES: 30 cm 13 [place] triple lumen hemodialysis catheter ROLL PLUGGER: HOUSTON LINDSAY MD CONTRAST: None PROCEDURE: The risks, benefits, and alternatives were discussed and informed consent was obtained by the patient's mother. The patient was transported to the angiography suite in satisfactory/stable condition and was transported onto the angiography table. The patient's left common femoral vein was assessed with ultrasound and determined to be patent prior to procedure. The patient was prepped and draped in a sterile fashion. The puncture site was anesthetized. The left common femoral vein was patent on ultrasound. Under sonographic guidance, the left common femoral vein was punctured with a 21-gauge micropuncture needle and a 0.018 inch wire was advanced through the needle. Needle was exchanged for transitional dilator. The inner dilator and wire was removed and a 0.035 inch wire was advanced through the transitional dilator into the inferior vena cava. Over the 0.035 inch wire, serial dilatation was performed. The catheter was advanced over the wire and positioned centrally under fluoroscopic guidance. 2-0 ethilon suture was used to secure the catheter. The catheter was charged with heparin 1000 per mL of space in each dialysis lumen. The central lumen was charged with heparinized saline. Biopatch and sterile dressing applied. The patient was transferred from the angiography suite back to the floor in stable condition. FINDINGS: 1. Excellent flow was obtained through the dialysis catheter with 20 mL syringes. 2. The catheter tip is in the IVC. IMPRESSION: 1. Successful sonographically and fluoroscopically guided placement of a left common femoral vein triple lumen nontunneled noncuffed hemodialysis catheter.
--- NOTE | 2017-07-11 14:25 | Progress Note ---
Assessment and Plan Imp: 1. DKA 2. Amphetamine abuse +/- withdrawal 3. Metabolic encephalopathy 4. Volume depletion 5. Hyperkalemia 6. BRITTANY, worsening 7. Acute respiratory failure, hypoxia 8. Pulm edema Rec: 1. Insulin per IMS; patient asking for food 2. Volume removal with HD 3. SubQ heparin; monitor platelets Plan of care reviewed with patient, he understands/agrees Subjective Date of service: 07/11/17 Principal diagnosis: DKA, hypoxia Interval history: Pulled out vascath, now replaced. More alert. Hungry. No complaints. On RA. Active Medications Albuterol (Proventil) 2.5 mg IH Q4H PRN PRN Reason: Shortness Of Breath Albuterol/Ipratropium (Duoneb *Not For Prn Use*) 1 ampul IH Q6HRT [facility] Last Admin: 07/11/17 08:51 Dose: 1 ampul Bisacodyl (Dulcolax) 10 mg [place] QDAY PRN PRN Reason: constipation unrelieved by MOM Dextrose (D50w (25gm) Vial) 0 gm IV PRN PRN PRN Reason: Hypoglycemia Last Admin: 07/11/17 06:42 Dose: 25 gm Famotidine (Pepcid) 20 mg IV DAILY [facility] Stop: 07/11/17 23:59 Last Admin: 07/10/17 10:23 Dose: 20 mg Famotidine (Pepcid) 10 mg PO BID [facility] Heparin Sodium (Porcine) (Heparin) 5,000 unit SUB-Q BID [facility] Last Admin: 07/10/17 22:56 Dose: 5,000 unit Heparin Sodium (Porcine) (Heparin) 5,000 unit IV ROSY PRN PRN Reason: hemodialysis Last Admin: 07/10/17 18:28 Dose: 5,000 unit Heparin Sodium (Porcine) (Heparin 10,000 Units/10 Ml) 2,000 unit IV ROSY PRN PRN Reason: hemodialysis Last Admin: 07/10/17 18:28 Dose: 2,000 unit Hydrophilic Ointment (Vaseline Lip Therapy) 1 applic TP Q2HR PRN PRN Reason: Dry Lips Sodium Chloride (Nacl 0.9%) 100 mls @ 999 mls/hr IV ROSY PRN PRN Reason: Hypotension Dextrose (D5w) 1,000 mls @ 42 mls/hr IV DIRECT [facility] Last Admin: 07/10/17 22:59 Dose: 42 mls/hr Insulin Aspart (Novolog) 0 units SUB-Q Q6HR SHELIA PRN Reason: Protocol Last Admin: 07/11/17 06:33 Dose: Not Given Lorazepam (Ativan) 2 mg IV Q4H PRN PRN Reason: Agitation Last Admin: 07/10/17 15:46 Dose: 2 mg Magnesium Hydroxide (Milk Of Magnesia) 30 ml PO Q4H PRN PRN Reason: Constipation Multi-Ingred Cream/Lotion/Oil/Oint (Artificial Tears Ophth Oint) 1 applic OU Q4HR PRN PRN Reason: Dry Eye(s) Objective Vital Signs - 12hr 07/11/17 07/11/17 07/11/17 03:11 03:45 07:26 Temperature 97.3 F L 98.6 F Pulse Rate 102 H 88 77 Pulse Rate [ Anterior Bilateral Throughout] Respiratory 18 20 Rate Respiratory Rate [Anterior Bilateral Throughout] Blood Pressure 132/77 Blood Pressure 120/75 [Right] O2 Sat by Pulse 96 96 Oximetry 07/11/17 07/11/17 08:00 08:51 Temperature Pulse Rate Pulse Rate [ 82 83 Anterior Bilateral Throughout] Respiratory Rate Respiratory 17 19 Rate [Anterior Bilateral Throughout] Blood Pressure Blood Pressure [Right] O2 Sat by Pulse Oximetry Constitutional: no acute distress, alert Eyes: non-icteric ENT: oropharynx moist Neck: supple Effort: normal Ascultation: Bilateral: rales Cardiovascular: regular rate and rhythm (no mrg) Gastrointestinal: normoactive bowel sounds, soft, non-tender, non-distended Integumentary: normal Extremities: no cyanosis, no edema, pink and warm Neurologic: normal mental status, non-focal exam, pupils equal and round, CN II- XII normal Psychiatric: mood appropriate, affect normal CBC and BMP: 07/11/17 06:00 07/11/17 06:00 ABG, PT/INR, D-dimer: ABG POC ABG pH 7.028 (7.35-7.45) L 07/07/17 10:29 POC ABG pCO2 11.9 (35-45) L 07/07/17 10:29 POC ABG pO2 129 (80-105) H 07/07/17 10:29 POC ABG HCO3 3.1 07/07/17 10:29 POC ABG Total CO2 < 5 07/07/17 10:29 POC ABG O2 Sat 97 07/07/17 10:29 PT/INR, D-dimer PT 16.3 Sec. (12.2-14.9) H 07/04/17 11:31 INR 1.25 (0.87-1.13) H 07/04/17 11:31 Abnormal lab findings: Abnormal Labs 07/04/17 07/04/17 07/04/17 12:45 12:45 12:45 WBC 21.3 H RBC 3.48 L Hgb 9.9 L Hct MCV 108 H MCH MCHC 26 L RDW 16.3 H Plt Count Seg Neuts % (Manual) 89.0 H Lymphocytes % (Manual) 2.0 L Seg Neutrophils # Man 19.0 H Lymphocytes # (Manual) 0.4 L Monocytes # (Manual) 1.1 H POC ABG pH POC ABG pCO2 POC ABG pO2 VBG pH Sodium 132 L Potassium Chloride 90.9 L Carbon Dioxide 6 L* BUN 31 H Creatinine Glucose 1112 H* POC Glucose Lactic Acid Uric Acid Calcium 7.3 L Phosphorus 8.60 H Magnesium Urine WBC (Auto) Urine Creatinine Complement C3 Complement C4 Hepatitis C Antibody 07/04/17 07/04/17 07/04/17 13:20 14:28 14:28 WBC RBC Hgb Hct MCV MCH MCHC RDW Plt Count Seg Neuts % (Manual) Lymphocytes % (Manual) Seg Neutrophils # Man Lymphocytes # (Manual) Monocytes # (Manual) POC ABG pH 6.743 L POC ABG pCO2 53.9 H POC ABG pO2 259 H VBG pH Sodium 134 L Potassium 5.3 H Chloride 94.5 L Carbon Dioxide 6 L* BUN 31 H Creatinine Glucose 1060 H* POC Glucose Lactic Acid 3.20 H* Uric Acid Calcium 6.8 L Phosphorus Magnesium Urine WBC (Auto) Urine Creatinine Complement C3 Complement C4 Hepatitis C Antibody 07/04/17 07/04/17 07/04/17 15:56 18:00 18:23 WBC RBC Hgb Hct MCV MCH MCHC RDW Plt Count Seg Neuts % (Manual) Lymphocytes % (Manual) Seg Neutrophils # Man Lymphocytes # (Manual) Monocytes # (Manual) POC ABG pH POC ABG pCO2 POC ABG pO2 VBG pH Sodium 133 L Potassium 3.5 L D Chloride 97.1 L Carbon Dioxide 7 L* 5 L* BUN 30 H 28 H Creatinine 1.6 H Glucose 1002 H* 988 H* POC Glucose > 500 H Lactic Acid Uric Acid Calcium 6.7 L 6.1 L Phosphorus Magnesium Urine WBC (Auto) Urine Creatinine Complement C3 Complement C4 Hepatitis C Antibody 07/04/17 07/04/17 07/04/17 20:05 20:29 21:21 WBC RBC Hgb Hct MCV MCH MCHC RDW Plt Count Seg Neuts % (Manual) Lymphocytes % (Manual) Seg Neutrophils # Man Lymphocytes # (Manual) Monocytes # (Manual) POC ABG pH POC ABG pCO2 POC ABG pO2 VBG pH Sodium Potassium 3.3 L Chloride Carbon Dioxide 5 L* BUN 29 H Creatinine 1.8 H Glucose 542 H* POC Glucose 487 H 410 H Lactic Acid Uric Acid Calcium 6.5 L Phosphorus Magnesium Urine WBC (Auto) Urine Creatinine Complement C3 Complement C4 Hepatitis C Antibody 07/04/17 07/04/17 07/05/17 22:42 23:25 00:22 WBC RBC Hgb Hct MCV MCH MCHC RDW Plt Count Seg Neuts % (Manual) Lymphocytes % (Manual) Seg Neutrophils # Man Lymphocytes # (Manual) Monocytes # (Manual) POC ABG pH POC ABG pCO2 POC ABG pO2 VBG pH Sodium Potassium Chloride Carbon Dioxide BUN Creatinine Glucose POC Glucose 360 H 338 H 276 H Lactic Acid Uric Acid Calcium Phosphorus Magnesium Urine WBC (Auto) Urine Creatinine Complement C3 Complement C4 Hepatitis C Antibody 07/05/17 07/05/17 07/05/17 01:23 03:06 04:30 WBC RBC Hgb Hct MCV MCH MCHC RDW Plt Count Seg Neuts % (Manual) Lymphocytes % (Manual) Seg Neutrophils # Man Lymphocytes # (Manual) Monocytes # (Manual) POC ABG pH POC ABG pCO2 POC ABG pO2 VBG pH Sodium Potassium 3.0 L Chloride 118.7 H Carbon Dioxide 15 L D BUN 25 H Creatinine 1.6 H Glucose 63 L POC Glucose 245 H 213 H Lactic Acid Uric Acid Calcium 6.0 L Phosphorus Magnesium Urine WBC (Auto) Urine Creatinine Complement C3 Complement C4 Hepatitis C Antibody 07/05/17 07/05/17 07/05/17 06:04 06:52 08:09 WBC RBC Hgb Hct MCV MCH MCHC RDW Plt Count Seg Neuts % (Manual) Lymphocytes % (Manual) Seg Neutrophils # Man Lymphocytes # (Manual) Monocytes # (Manual) POC ABG pH 7.179 L POC ABG pCO2 POC ABG pO2 263 H VBG pH Sodium Potassium Chloride Carbon Dioxide BUN Creatinine Glucose POC Glucose 159 H 174 H Lactic Acid Uric Acid Calcium Phosphorus Magnesium Urine WBC (Auto) Urine Creatinine Complement C3 Complement C4 Hepatitis C Antibody 07/05/17 07/05/17 07/06/17 17:56 23:59 01:00 WBC RBC Hgb Hct MCV MCH MCHC RDW Plt Count Seg Neuts % (Manual) Lymphocytes % (Manual) Seg Neutrophils # Man Lymphocytes # (Manual) Monocytes # (Manual) POC ABG pH 7.231 L POC ABG pCO2 33.4 L POC ABG pO2 149 H VBG pH Sodium Potassium Chloride Carbon Dioxide BUN Creatinine Glucose POC Glucose 208 H 41 L Lactic Acid Uric Acid Calcium Phosphorus Magnesium Urine WBC (Auto) Urine Creatinine Complement C3 Complement C4 Hepatitis C Antibody 07/06/17 07/06/17 07/06/17 01:29 02:22 03:04 WBC 11.9 H RBC 3.43 L Hgb 9.9 L Hct 32.9 L MCV MCH MCHC RDW 15.7 H Plt Count 123 L Seg Neuts % (Manual) Lymphocytes % (Manual) Seg Neutrophils # Man Lymphocytes # (Manual) Monocytes # (Manual) POC ABG pH POC ABG pCO2 POC ABG pO2 VBG pH Sodium Potassium Chloride Carbon Dioxide BUN Creatinine Glucose POC Glucose < 40 L 64 L Lactic Acid Uric Acid Calcium Phosphorus Magnesium Urine WBC (Auto) Urine Creatinine Complement C3 Complement C4 Hepatitis C Antibody 07/06/17 07/06/17 07/06/17 03:04 05:50 16:34 WBC RBC Hgb Hct MCV MCH MCHC RDW Plt Count Seg Neuts % (Manual) Lymphocytes % (Manual) Seg Neutrophils # Man Lymphocytes # (Manual) Monocytes # (Manual) POC ABG pH POC ABG pCO2 POC ABG pO2 VBG pH Sodium Potassium Chloride 110.7 H Carbon Dioxide 13 L BUN 29 H Creatinine 2.7 H D Glucose POC Glucose 56 L 210 H Lactic Acid Uric Acid Calcium 6.4 L Phosphorus 2.00 L Magnesium 1.40 L Urine WBC (Auto) Urine Creatinine Complement C3 Complement C4 Hepatitis C Antibody 07/06/17 07/07/17 07/07/17 20:47 06:46 10:29 WBC RBC Hgb Hct MCV MCH MCHC RDW Plt Count Seg Neuts % (Manual) Lymphocytes % (Manual) Seg Neutrophils # Man Lymphocytes # (Manual) Monocytes # (Manual) POC ABG pH 7.028 L POC ABG pCO2 11.9 L POC ABG pO2 129 H VBG pH Sodium Potassium Chloride Carbon Dioxide BUN Creatinine Glucose POC Glucose 200 H 351 H Lactic Acid Uric Acid Calcium Phosphorus Magnesium Urine WBC (Auto) Urine Creatinine Complement C3 Complement C4 Hepatitis C Antibody 07/07/17 07/07/17 07/07/17 10:45 11:06 13:10 WBC RBC Hgb Hct MCV MCH MCHC RDW Plt Count Seg Neuts % (Manual) Lymphocytes % (Manual) Seg Neutrophils # Man Lymphocytes # (Manual) Monocytes # (Manual) POC ABG pH POC ABG pCO2 POC ABG pO2 VBG pH Sodium Potassium 5.4 H D 6.0 H Chloride 108.2 H Carbon Dioxide 2 L* D 5 L* BUN 43 H 44 H Creatinine 4.6 H D 4.5 H Glucose 349 H 347 H POC Glucose 248 H Lactic Acid Uric Acid Calcium 7.0 L 7.1 L Phosphorus 4.60 H D Magnesium Urine WBC (Auto) Urine Creatinine Complement C3 Complement C4 Hepatitis C Antibody 07/07/17 07/07/17 07/07/17 14:47 15:27 16:13 WBC RBC Hgb Hct MCV MCH MCHC RDW Plt Count Seg Neuts % (Manual) Lymphocytes % (Manual) Seg Neutrophils # Man Lymphocytes # (Manual) Monocytes # (Manual) POC ABG pH POC ABG pCO2 POC ABG pO2 VBG pH 7.269 L Sodium Potassium 5.4 H Chloride 107.4 H Carbon Dioxide 5 L* BUN 44 H Creatinine 4.3 H Glucose 439 H POC Glucose 285 H Lactic Acid Uric Acid Calcium 6.9 L Phosphorus Magnesium Urine WBC (Auto) Urine Creatinine Complement C3 Complement C4 Hepatitis C Antibody 07/07/17 07/07/17 07/07/17 16:27 17:13 18:03 WBC RBC Hgb Hct MCV MCH MCHC RDW Plt Count Seg Neuts % (Manual) Lymphocytes % (Manual) Seg Neutrophils # Man Lymphocytes # (Manual) Monocytes # (Manual) POC ABG pH POC ABG pCO2 POC ABG pO2 VBG pH Sodium Potassium Chloride 110.2 H Carbon Dioxide 8 L* BUN 44 H Creatinine 4.6 H Glucose 247 H POC Glucose 328 H 207 H Lactic Acid Uric Acid Calcium 6.7 L Phosphorus Magnesium Urine WBC (Auto) Urine Creatinine Complement C3 Complement C4 Hepatitis C Antibody 07/07/17 07/07/17 07/07/17 18:24 19:24 22:06 WBC RBC Hgb Hct MCV MCH MCHC RDW Plt Count Seg Neuts % (Manual) Lymphocytes % (Manual) Seg Neutrophils # Man Lymphocytes # (Manual) Monocytes # (Manual) POC ABG pH POC ABG pCO2 POC ABG pO2 VBG pH Sodium Potassium Chloride 112.3 H Carbon Dioxide 12 L BUN 44 H Creatinine 4.9 H Glucose POC Glucose 140 H 129 H Lactic Acid Uric Acid Calcium 7.0 L Phosphorus Magnesium Urine WBC (Auto) Urine Creatinine Complement C3 Complement C4 Hepatitis C Antibody 07/07/17 07/07/17 07/07/17 23:15 23:17 23:57 WBC RBC Hgb Hct MCV MCH MCHC RDW Plt Count Seg Neuts % (Manual) Lymphocytes % (Manual) Seg Neutrophils # Man Lymphocytes # (Manual) Monocytes # (Manual) POC ABG pH POC ABG pCO2 POC ABG pO2 VBG pH Sodium Potassium Chloride 111.8 H Carbon Dioxide 13 L BUN 46 H Creatinine 4.9 H Glucose 161 H POC Glucose 182 H 146 H Lactic Acid Uric Acid Calcium 7.1 L Phosphorus Magnesium Urine WBC (Auto) Urine Creatinine Complement C3 Complement C4 Hepatitis C Antibody 07/08/17 07/08/17 07/08/17 02:00 02:55 03:54 WBC RBC Hgb Hct MCV MCH MCHC RDW Plt Count Seg Neuts % (Manual) Lymphocytes % (Manual) Seg Neutrophils # Man Lymphocytes # (Manual) Monocytes # (Manual) POC ABG pH POC ABG pCO2 POC ABG pO2 VBG pH Sodium Potassium Chloride Carbon Dioxide BUN Creatinine Glucose POC Glucose 125 H 180 H 157 H Lactic Acid Uric Acid Calcium Phosphorus Magnesium Urine WBC (Auto) Urine Creatinine Complement C3 Complement C4 Hepatitis C Antibody 07/08/17 07/08/17 07/08/17 04:45 06:27 08:05 WBC RBC Hgb Hct MCV MCH MCHC RDW Plt Count Seg Neuts % (Manual) Lymphocytes % (Manual) Seg Neutrophils # Man Lymphocytes # (Manual) Monocytes # (Manual) POC ABG pH POC ABG pCO2 POC ABG pO2 VBG pH Sodium Potassium Chloride 113.1 H Carbon Dioxide 13 L BUN 46 H Creatinine 5.4 H Glucose POC Glucose 153 H 166 H Lactic Acid Uric Acid Calcium 7.0 L Phosphorus Magnesium Urine WBC (Auto) Urine Creatinine Complement C3 Complement C4 Hepatitis C Antibody 07/08/17 07/08/17 07/08/17 08:58 10:11 13:11 WBC RBC Hgb Hct MCV MCH MCHC RDW Plt Count Seg Neuts % (Manual) Lymphocytes % (Manual) Seg Neutrophils # Man Lymphocytes # (Manual) Monocytes # (Manual) POC ABG pH POC ABG pCO2 POC ABG pO2 VBG pH Sodium Potassium Chloride Carbon Dioxide BUN Creatinine Glucose POC Glucose 118 H 117 H 142 H Lactic Acid Uric Acid Calcium Phosphorus Magnesium Urine WBC (Auto) Urine Creatinine Complement C3 Complement C4 Hepatitis C Antibody 07/08/17 07/08/17 07/08/17 13:21 14:31 15:57 WBC RBC Hgb Hct MCV MCH MCHC RDW Plt Count Seg Neuts % (Manual) Lymphocytes % (Manual) Seg Neutrophils # Man Lymphocytes # (Manual) Monocytes # (Manual) POC ABG pH POC ABG pCO2 POC ABG pO2 VBG pH Sodium 135 L D Potassium 6.4 H* D Chloride Carbon Dioxide 12 L BUN 44 H Creatinine 4.8 H Glucose 524 H* POC Glucose 197 H 168 H Lactic Acid Uric Acid Calcium 6.5 L Phosphorus Magnesium Urine WBC (Auto) Urine Creatinine Complement C3 Complement C4 Hepatitis C Antibody 07/08/17 07/08/17 07/08/17 19:06 20:38 21:10 WBC RBC Hgb Hct MCV MCH MCHC RDW Plt Count Seg Neuts % (Manual) Lymphocytes % (Manual) Seg Neutrophils # Man Lymphocytes # (Manual) Monocytes # (Manual) POC ABG pH POC ABG pCO2 POC ABG pO2 VBG pH Sodium Potassium Chloride Carbon Dioxide BUN Creatinine Glucose POC Glucose 149 H 120 H 108 H Lactic Acid Uric Acid Calcium Phosphorus Magnesium Urine WBC (Auto) Urine Creatinine Complement C3 Complement C4 Hepatitis C Antibody 07/08/17 07/09/17 07/09/17 23:32 00:12 01:12 WBC RBC Hgb Hct MCV MCH MCHC RDW Plt Count Seg Neuts % (Manual) Lymphocytes % (Manual) Seg Neutrophils # Man Lymphocytes # (Manual) Monocytes # (Manual) POC ABG pH POC ABG pCO2 POC ABG pO2 VBG pH Sodium Potassium Chloride Carbon Dioxide BUN Creatinine Glucose POC Glucose 67 L 131 H 161 H Lactic Acid Uric Acid Calcium Phosphorus Magnesium Urine WBC (Auto) Urine Creatinine Complement C3 Complement C4 Hepatitis C Antibody 07/09/17 07/09/17 07/09/17 01:59 03:02 03:57 WBC RBC Hgb Hct MCV MCH MCHC RDW Plt Count Seg Neuts % (Manual) Lymphocytes % (Manual) Seg Neutrophils # Man Lymphocytes # (Manual) Monocytes # (Manual) POC ABG pH POC ABG pCO2 POC ABG pO2 VBG pH Sodium Potassium Chloride Carbon Dioxide BUN Creatinine Glucose POC Glucose 253 H 128 H Lactic Acid Uric Acid 9.5 H Calcium Phosphorus Magnesium Urine WBC (Auto) Urine Creatinine Complement C3 Complement C4 Hepatitis C Antibody 07/09/17 07/09/17 07/09/17 03:57 03:57 06:23 WBC RBC 3.10 L Hgb 8.7 L Hct 27.5 L MCV MCH MCHC RDW 16.9 H Plt Count Seg Neuts % (Manual) Lymphocytes % (Manual) Seg Neutrophils # Man Lymphocytes # (Manual) Monocytes # (Manual) POC ABG pH POC ABG pCO2 POC ABG pO2 VBG pH Sodium Potassium Chloride 112.0 H Carbon Dioxide 11 L BUN 48 H Creatinine 5.7 H Glucose POC Glucose 63 L Lactic Acid Uric Acid Calcium 7.4 L Phosphorus Magnesium Urine WBC (Auto) Urine Creatinine Complement C3 Complement C4 Hepatitis C Antibody 07/09/17 07/09/17 07/09/17 07:38 08:26 09:28 WBC RBC Hgb Hct MCV MCH MCHC RDW Plt Count Seg Neuts % (Manual) Lymphocytes % (Manual) Seg Neutrophils # Man Lymphocytes # (Manual) Monocytes # (Manual) POC ABG pH POC ABG pCO2 POC ABG pO2 VBG pH Sodium Potassium Chloride Carbon Dioxide BUN Creatinine Glucose POC Glucose 175 H 206 H Lactic Acid Uric Acid Calcium Phosphorus Magnesium Urine WBC (Auto) 14.0 H Urine Creatinine Complement C3 Complement C4 Hepatitis C Antibody 07/09/17 07/09/17 07/09/17 09:28 09:28 09:28 WBC RBC Hgb Hct MCV MCH MCHC RDW Plt Count Seg Neuts % (Manual) Lymphocytes % (Manual) Seg Neutrophils # Man Lymphocytes # (Manual) Monocytes # (Manual) POC ABG pH POC ABG pCO2 POC ABG pO2 VBG pH Sodium 129 L D Potassium Chloride Carbon Dioxide BUN Creatinine 5.6 H Glucose POC Glucose Lactic Acid Uric Acid Calcium Phosphorus Magnesium Urine WBC (Auto) Urine Creatinine 55.0 H Complement C3 66 L Complement C4 Hepatitis C Antibody 07/09/17 07/09/17 07/09/17 09:28 10:21 10:37 WBC RBC Hgb Hct MCV MCH MCHC RDW Plt Count Seg Neuts % (Manual) Lymphocytes % (Manual) Seg Neutrophils # Man Lymphocytes # (Manual) Monocytes # (Manual) POC ABG pH POC ABG pCO2 POC ABG pO2 VBG pH Sodium Potassium Chloride Carbon Dioxide BUN Creatinine Glucose POC Glucose 124 H Lactic Acid Uric Acid Calcium Phosphorus Magnesium Urine WBC (Auto) Urine Creatinine Complement C3 Complement C4 15 L Hepatitis C Antibody Reactive A 07/09/17 07/09/17 07/09/17 12:31 13:49 14:49 WBC RBC Hgb Hct MCV MCH MCHC RDW Plt Count Seg Neuts % (Manual) Lymphocytes % (Manual) Seg Neutrophils # Man Lymphocytes # (Manual) Monocytes # (Manual) POC ABG pH POC ABG pCO2 POC ABG pO2 VBG pH Sodium Potassium Chloride Carbon Dioxide BUN Creatinine Glucose POC Glucose 123 H 179 H 112 H Lactic Acid Uric Acid Calcium Phosphorus Magnesium Urine WBC (Auto) Urine Creatinine Complement C3 Complement C4 Hepatitis C Antibody 07/09/17 07/09/17 07/09/17 15:29 18:46 20:08 WBC RBC Hgb Hct MCV MCH MCHC RDW Plt Count Seg Neuts % (Manual) Lymphocytes % (Manual) Seg Neutrophils # Man Lymphocytes # (Manual) Monocytes # (Manual) POC ABG pH POC ABG pCO2 POC ABG pO2 VBG pH Sodium Potassium Chloride Carbon Dioxide BUN Creatinine Glucose POC Glucose 122 H 136 H 158 H Lactic Acid Uric Acid Calcium Phosphorus Magnesium Urine WBC (Auto) Urine Creatinine Complement C3 Complement C4 Hepatitis C Antibody 07/09/17 07/10/17 07/10/17 21:03 00:01 01:00 WBC RBC Hgb Hct MCV MCH MCHC RDW Plt Count Seg Neuts % (Manual) Lymphocytes % (Manual) Seg Neutrophils # Man Lymphocytes # (Manual) Monocytes # (Manual) POC ABG pH POC ABG pCO2 POC ABG pO2 VBG pH Sodium Potassium Chloride Carbon Dioxide BUN Creatinine Glucose POC Glucose 132 H 125 H 127 H Lactic Acid Uric Acid Calcium Phosphorus Magnesium Urine WBC (Auto) Urine Creatinine Complement C3 Complement C4 Hepatitis C Antibody 07/10/17 07/10/17 07/10/17 02:03 03:08 03:55 WBC RBC Hgb Hct MCV MCH MCHC RDW Plt Count Seg Neuts % (Manual) Lymphocytes % (Manual) Seg Neutrophils # Man Lymphocytes # (Manual) Monocytes # (Manual) POC ABG pH POC ABG pCO2 POC ABG pO2 VBG pH Sodium Potassium Chloride Carbon Dioxide BUN Creatinine Glucose POC Glucose 152 H 125 H 146 H Lactic Acid Uric Acid Calcium Phosphorus Magnesium Urine WBC (Auto) Urine Creatinine Complement C3 Complement C4 Hepatitis C Antibody 07/10/17 07/10/17 07/10/17 05:04 05:04 06:56 WBC RBC 2.81 L Hgb 8.3 L Hct 23.7 L MCV MCH MCHC 35 H RDW 15.5 H Plt Count 131 L Seg Neuts % (Manual) Lymphocytes % (Manual) Seg Neutrophils # Man Lymphocytes # (Manual) Monocytes # (Manual) POC ABG pH POC ABG pCO2 POC ABG pO2 VBG pH Sodium Potassium Chloride Carbon Dioxide 21 L D BUN 27 H Creatinine 4.1 H Glucose POC Glucose 140 H Lactic Acid Uric Acid Calcium 7.0 L Phosphorus Magnesium Urine WBC (Auto) Urine Creatinine Complement C3 Complement C4 Hepatitis C Antibody 07/10/17 07/10/17 07/10/17 07:49 11:58 16:19 WBC RBC Hgb Hct MCV MCH MCHC RDW Plt Count Seg Neuts % (Manual) Lymphocytes % (Manual) Seg Neutrophils # Man Lymphocytes # (Manual) Monocytes # (Manual) POC ABG pH POC ABG pCO2 POC ABG pO2 VBG pH Sodium Potassium Chloride Carbon Dioxide BUN Creatinine Glucose POC Glucose 195 H 395 H 428 H Lactic Acid Uric Acid Calcium Phosphorus Magnesium Urine WBC (Auto) Urine Creatinine Complement C3 Complement C4 Hepatitis C Antibody 07/11/17 07/11/17 07/11/17 05:48 06:00 06:00 WBC RBC 2.76 L Hgb 7.6 L Hct 23.3 L MCV MCH 27 L MCHC RDW 15.3 H Plt Count 127 L Seg Neuts % (Manual) Lymphocytes % (Manual) Seg Neutrophils # Man Lymphocytes # (Manual) Monocytes # (Manual) POC ABG pH POC ABG pCO2 POC ABG pO2 VBG pH Sodium Potassium Chloride Carbon Dioxide BUN Creatinine 3.5 H Glucose 40 L POC Glucose 44 L Lactic Acid Uric Acid Calcium 7.2 L Phosphorus Magnesium Urine WBC (Auto) Urine Creatinine Complement C3 Complement C4 Hepatitis C Antibody 07/11/17 07/11/17 06:39 07:20 WBC RBC Hgb Hct MCV MCH MCHC RDW Plt Count Seg Neuts % (Manual) Lymphocytes % (Manual) Seg Neutrophils # Man Lymphocytes # (Manual) Monocytes # (Manual) POC ABG pH POC ABG pCO2 POC ABG pO2 VBG pH Sodium Potassium Chloride Carbon Dioxide BUN Creatinine Glucose POC Glucose 52 L 121 H Lactic Acid Uric Acid Calcium Phosphorus Magnesium Urine WBC (Auto) Urine Creatinine Complement C3 Complement C4 Hepatitis C Antibody Chest x-ray: report reviewed, image reviewed (pulm edema)
[2017-07-11] MEDS: PEPCID IV SCH (15:52)
[2017-07-11] MEDS: HEPARIN SUB-Q SCH ×2 (16:53→22:35)
[2017-07-12] MEDS: ATIVAN IV PRN ×6 (00:10→23:33)
[2017-07-12] MEDS: D5W 1,000 ML IV SCH (00:11)
[2017-07-12] MEDS: NOVOLOG SUB-Q SCH ×4 (00:36→18:30)
[2017-07-12] MEDS: DUONEB *Not for PRN Use IH SCH ×4 (01:25→20:29)
[2017-07-12 06:23] LABS: Hematocrit 22.1 % (35.5-45.6); Hemoglobin 7.1 gm/dl (11.8-15.2); Mean Corpuscular HGB Conc 32 % (32-34); Mean Corpuscular Hemoglobin 28 pg (28-32); Mean Corpuscular Volume 86 fl (84-94); Platelet Count 127 K/mm3 (140-440); Red Blood Count 2.57 M/mm3 (3.65-5.03); Red Cell Distribution Width 15.5 % (13.2-15.2); White Blood Count 5.1 K/mm3 (4.5-11.0)
[2017-07-12 06:46] LABS: Calcium 7.4 mg/dL (8.4-10.2); Chloride 98.3 mmol/L (98-107); Potassium 4.3 mmol/L (3.6-5.0)
--- NOTE | 2017-07-12 07:21 | Vascular Lab Report ---
MISCELLANEOUS VESSEL IDENTIFICATION: COMMENTS ON THE SCAN: The left common femoral artery was identified and under real-time ultrasound guidance was cannulated. IMPRESSION: Successful ultrasound guided arterial cannulation.
--- NOTE | 2017-07-12 07:24 | Progress Note ---
Assessment and Plan Assessment * Oliguric BRITTANY secondary to ATN - FeNa 8.5% --Renal u/s; nml size - right 13.5, left 13.3; +echogenic kidneys --Urine eos negative --ANCA neg, GILLES neg * Hypocomplementemia * Metabolic acidosis - DKA vs lactic acidosis * Anemia * History of drug use * Hypertension * AMS * Hepatitis C Recommendations * Hemodialysis today - no UF; UOP seems to be improving * Monitor renal function over the weekend * Transfusion per primary team * Continue IVF for hydration * Strict intake and output * Avoid nephrotoxins * Adjust meds for GFR less than 10 Subjective Date of service: 07/12/17 Principal diagnosis: DKA, hypoxia Interval history: No acute events overnight. Objective - Vital Signs Vital signs: Vital Signs - 12hr 07/11/17 07/11/17 07/11/17 19:25 20:22 23:37 Temperature 98.5 F 98.6 F Pulse Rate 97 H 97 H Pulse Rate [ 85 Anterior Bilateral Throughout] Respiratory 20 20 Rate Respiratory 18 Rate [Anterior Bilateral Throughout] Blood Pressure 126/82 152/88 O2 Sat by Pulse 96 99 Oximetry 07/12/17 07/12/17 02:32 03:51 Temperature 98.3 F Pulse Rate 100 H 99 H Pulse Rate [ Anterior Bilateral Throughout] Respiratory 20 Rate Respiratory Rate [Anterior Bilateral Throughout] Blood Pressure 124/70 O2 Sat by Pulse 98 Oximetry - General Appearance General appearance: well-developed, well-nourished EENT: ATNC Respiratory: Present: Clear to Ascultation Cardiology: regular, S1S2 Gastrointestinal: normal, no tenderness, no distended Integumentary: no rash, warm and dry Neurologic: other (somonolent) Musculoskeletal: other (trace edema) - Lab 07/12/17 05:00 07/12/17 05:00 Most recent lab results Calcium 7.4 mg/dL (8.4-10.2) L 07/12/17 05:00 Phosphorus 4.60 mg/dL (2.5-4.5) H D 07/07/17 13:10 Magnesium 1.80 mg/dL (1.7-2.3) 07/07/17 13:10 Urine Creatinine 55.0 mg/dL (0.1-20.0) H 07/09/17 09:28 Urine Sodium 108 mEq/L 07/10/17 00:00
[2017-07-12] MEDS ORDERED: NACL 0.9% 100 ML IV PRN (08:43)
[2017-07-12] MEDS: PEPCID PO SCH ×2 (09:18→22:30)
[2017-07-12] MEDS: HEPARIN SUB-Q SCH ×2 (09:19→22:47)
[2017-07-12] MEDS ORDERED: NACL 0.9% 500 ML 500 ML IV NR (12:25)
--- NOTE | 2017-07-12 12:31 | Progress Note ---
Assessment and Plan Assessment and plan: Patient is a 42-year-old man with h/o IDDM, diabetic ketoacidosis and drug abuse , patient brought to the hospital by EMS for altered mental status. Patient found unresponsive in a local hotel, for uncertain duration of time, uncertain mechanism, with evidence of drug paraphernalia. As per EMS, patient initially hypotensive, hypothermic, hyperglycemic, and hypoxic in the field. EMS further reported that they gave 2 mg of Narcan in the field, which somewhat improved the patient's mental status. Upon arrival to the ER, the patient was altered, combative, pulling at his leads/monitor, trying to get out of the stretcher, trying to pull out his IV. Patient was clearly a danger to himself and other patients; therefore, he was intubated. Patient was found to be hyperglycemic, glucose of greater than 500, hypothermic with a core rectal temperature of 93, with blood pressure in the low 100s. Patient started empirically on the sepsis pathway, as well as the DKA pathway. Extubated 07/06/17 - SIRS, poa and No Sepsis without a source * Blood cultures remain negative. - DKA (diabetic ketoacidoses), resolved, with episodes of hypoglycemia: * Resolved - Diabetes mellitus -Uncontrolled and Poor Compliance * Discontinue D5 first and long acting insulin. Patient tolerating by mouth. - Acute toxic metabolic encephalopathy due to amphetamine: Unchanged * Aspiration precautions * Counseling when more awake -Acute blood loss anemia * Source of bleed unsure. * Rectal tube with dark stools * Will check for occult blood AND If positive will need GI eval - Metabolic acidosis: * due to DKA- Now resolved - Acute respiratory failure, extubated 07/06/17 * Supplemental oxygen, nebs, -Amphetamine Abuse: * supportative care -ARF, vasomotor nephropathy: * consult renal, Cartheter replaced for dialysis * continue dialysis per renal function * urine output Continues to improve -Thrombocytopenia * Continue to monitor --DVT prophylaxis: scd, stop heparin due to drop in plt Plan of care discussed with the patient. Continue status patient is still lethargic and intermittently confused. History Interval history: patient seen and examined, lethargic but more awake compared to yesterday. Was briefly disoriented last night and had pulled out lines. otherwises oriented x2 still with intermittent delirium per nursing staff. Tolerated diet yesterday night. Hospitalist Physical - Physical exam Narrative exam: VITAL SIGNS: Reviewed. GENERAL: The patient appeared well nourished and normally developed. Vital signs as documented. HEAD: No signs of head trauma. EYES: Pupils are equal. Extraocular motions intact. EARS: Hearing grossly intact. MOUTH: Oropharynx is normal. NECK: No adenopathy, no JVD. CHEST: Chest with clear breath sounds bilaterally. No wheezes, rales, or rhonchi. CARDIAC: Regular rate and rhythm. S1 and S2, without murmurs, gallops, or rubs. VASCULAR: mild generalized anascar. Peripheral pulses normal and equal in all extremities. ABDOMEN: Soft, without detectable tenderness. No sign of distention. No rebound or guarding, and no masses palpated. Bowel Sounds normal. MUSCULOSKELETAL: Good range of motion of all major joints. Extremities without clubbing, cyanosis. mild anasacar. NEUROLOGIC EXAM: Alert and oriented x 2. No focal sensory or strength deficits. Still intermittent delirium per nursing staff. Speech slow. Follows some commands. PSYCHIATRIC: Mood depressed SKIN: Multiple skin tattoos - Constitutional Vitals: Temp Pulse Resp BP Pulse Ox 98.3 F 104 H 20 124/70 97 07/12/17 03:51 07/12/17 09:00 07/12/17 09:00 07/12/17 03:51 07/12/17 08:50 General appearance: Present: no acute distress. Absent: other Results - Labs CBC & Chem 7: 07/12/17 05:00 07/12/17 05:00 Labs: Laboratory Last Values WBC 5.1 K/mm3 (4.5-11.0) 07/12/17 05:00 RBC 2.57 M/mm3 (3.65-5.03) L 07/12/17 05:00 Hgb 7.1 gm/dl (11.8-15.2) L 07/12/17 05:00 Hct 22.1 % (35.5-45.6) L 07/12/17 05:00 MCV 86 fl (84-94) 07/12/17 05:00 MCH 28 pg (28-32) 07/12/17 05:00 MCHC 32 % (32-34) 07/12/17 05:00 RDW 15.5 % (13.2-15.2) H 07/12/17 05:00 Plt Count 127 K/mm3 (140-440) L 07/12/17 05:00 Add Manual Diff Complete 07/04/17 12:45 Total Counted 100 07/04/17 12:45 Seg Neuts % (Manual) 89.0 % (40.0-70.0) H 07/04/17 12:45 Band Neutrophils % 4.0 % 07/04/17 12:45 Lymphocytes % (Manual) 2.0 % (13.4-35.0) L 07/04/17 12:45 Reactive Lymphs % (Man) 0 % 07/04/17 12:45 Monocytes % (Manual) 5.0 % (0.0-7.3) 07/04/17 12:45 Eosinophils % (Manual) 0 % (0.0-4.3) 07/04/17 12:45 Basophils % (Manual) 0 % (0.0-1.8) 07/04/17 12:45 Metamyelocytes % 0 % 07/04/17 12:45 Myelocytes % 0 % 07/04/17 12:45 Promyelocytes % 0 % 07/04/17 12:45 Blast Cells % 0 % 07/04/17 12:45 Nucleated RBC % Not Reportable 07/04/17 12:45 Seg Neutrophils # Man 19.0 K/mm3 (1.8-7.7) H 07/04/17 12:45 Band Neutrophils # 0.9 K/mm3 07/04/17 12:45 Lymphocytes # (Manual) 0.4 K/mm3 (1.2-5.4) L 07/04/17 12:45 Abs React Lymphs (Man) 0.0 K/mm3 07/04/17 12:45 Monocytes # (Manual) 1.1 K/mm3 (0.0-0.8) H 07/04/17 12:45 Eosinophils # (Manual) 0.0 K/mm3 (0.0-0.4) 07/04/17 12:45 Basophils # (Manual) 0.0 K/mm3 (0.0-0.1) 07/04/17 12:45 Metamyelocytes # 0.0 K/mm3 07/04/17 12:45 Myelocytes # 0.0 K/mm3 07/04/17 12:45 Promyelocytes # 0.0 K/mm3 07/04/17 12:45 Blast Cells # 0.0 K/mm3 07/04/17 12:45 WBC Morphology Not Reportable 07/04/17 12:45 Hypersegmented Neuts Not Reportable 07/04/17 12:45 Hyposegmented Neuts Not Reportable 07/04/17 12:45 Hypogranular Neuts Not Reportable 07/04/17 12:45 Smudge Cells Not Reportable 07/04/17 12:45 Toxic Granulation Not Reportable 07/04/17 12:45 Toxic Vacuolation Not Reportable 07/04/17 12:45 Dohle Bodies Not Reportable 07/04/17 12:45 Pelger-Huet Anomaly Not Reportable 07/04/17 12:45 Deyanira Rods Not Reportable 07/04/17 12:45 Platelet Estimate Appears normal 07/04/17 12:45 Clumped Platelets Not Reportable 07/04/17 12:45 Plt Clumps, EDTA Not Reportable 07/04/17 12:45 Large Platelets Not Reportable 07/04/17 12:45 Giant Platelets Not Reportable 07/04/17 12:45 Platelet Satelliting Not Reportable 07/04/17 12:45 Plt Morphology Comment Not Reportable 07/04/17 12:45 RBC Morphology Not Reportable 07/04/17 12:45 Dimorphic RBCs Not Reportable 07/04/17 12:45 Polychromasia Not Reportable 07/04/17 12:45 Hypochromasia Not Reportable 07/04/17 12:45 Poikilocytosis Not Reportable 07/04/17 12:45 Anisocytosis 2+ 07/04/17 12:45 Microcytosis Not Reportable 07/04/17 12:45 Macrocytosis 2+ 07/04/17 12:45 Spherocytes Not Reportable 07/04/17 12:45 Pappenheimer Bodies Not Reportable 07/04/17 12:45 Sickle Cells Not Reportable 07/04/17 12:45 Target Cells Not Reportable 07/04/17 12:45 Tear Drop Cells Not Reportable 07/04/17 12:45 Ovalocytes Not Reportable 07/04/17 12:45 Helmet Cells Not Reportable 07/04/17 12:45 [place] Bodies Not Reportable 07/04/17 12:45 Sparks Rings Not Reportable 07/04/17 12:45 [place] Cells Not Reportable 07/04/17 12:45 Bite Cells Not Reportable 07/04/17 12:45 Crenated Cell Not Reportable 07/04/17 12:45 Elliptocytes Not Reportable 07/04/17 12:45 Acanthocytes (Spur) Not Reportable 07/04/17 12:45 Rouleaux Not Reportable 07/04/17 12:45 Hemoglobin C Crystals Not Reportable 07/04/17 12:45 Schistocytes Not Reportable 07/04/17 12:45 Malaria parasites Not Reportable 07/04/17 12:45 Andrei Bodies Not Reportable 07/04/17 12:45 Hem Pathologist Commnt No 07/04/17 12:45 PT 16.3 Sec. (12.2-14.9) H 07/04/17 11:31 INR 1.25 (0.87-1.13) H 07/04/17 11:31 APTT 25.3 Sec. (24.2-36.6) 07/04/17 11:31 POC ABG pH 7.028 (7.35-7.45) L 07/07/17 10:29 POC ABG pCO2 11.9 (35-45) L 07/07/17 10:29 POC ABG pO2 129 (80-105) H 07/07/17 10:29 POC ABG HCO3 3.1 07/07/17 10:29 POC ABG Total CO2 < 5 07/07/17 10:29 POC ABG O2 Sat 97 07/07/17 10:29 POC ABG Base Excess -28 07/07/17 10:29 VBG pH 7.269 (7.320-7.420) L 07/07/17 16:13 FiO2 21 % 07/07/17 10:29 Sodium 134 mmol/L (137-145) L 07/12/17 05:00 Potassium 4.3 mmol/L (3.6-5.0) 07/12/17 05:00 Chloride 98.3 mmol/L (98-107) 07/12/17 05:00 Carbon Dioxide 16 mmol/L (22-30) L D 07/12/17 05:00 Anion Gap 24 mmol/L 07/12/17 05:00 BUN 27 mg/dL (9-20) H 07/12/17 05:00 Creatinine 4.8 mg/dL (0.8-1.5) H 07/12/17 05:00 Estimated GFR 13 ml/min 07/12/17 05:00 BUN/Creatinine Ratio 6 % 07/12/17 05:00 Glucose 259 mg/dL (75-100) H 07/12/17 05:00 POC Glucose 299 (70-105) H 07/12/17 05:11 Osmolality 304 Mosm/kg 07/09/17 03:57 Lactic Acid 3.20 mmol/L (0.7-2.0) H* 07/04/17 14:28 Uric Acid 9.5 mg/dL (3.5-7.6) H 07/09/17 03:57 Calcium 7.4 mg/dL (8.4-10.2) L 07/12/17 05:00 Phosphorus 4.60 mg/dL (2.5-4.5) H D 07/07/17 13:10 Magnesium 1.80 mg/dL (1.7-2.3) 07/07/17 13:10 Total Bilirubin < 0.20 mg/dL (0.1-1.2) 07/04/17 11:25 AST 50 units/L (5-40) H 07/04/17 11:25 ALT 69 units/L (7-56) H 07/04/17 11:25 Alkaline Phosphatase 266 units/L (35-129) H 07/04/17 11:25 Total Creatine Kinase 168 units/L (55-170) 07/08/17 13:21 Total Protein 6.4 g/dL (6.3-8.2) 07/04/17 11:25 Albumin 3.2 g/dL (3.9-5) L 07/04/17 11:25 Albumin/Globulin Ratio 1.0 % 07/04/17 11:25 TSH 1.810 mlU/mL (0.270-4.200) 07/04/17 11:25 Urine Color Yellow (Yellow) 07/09/17 09:28 Urine Turbidity Clear (Clear) 07/09/17 09:28 Urine pH 5.0 (5.0-7.0) 07/09/17 09:28 Ur Specific [place] 1.010 (1.003-1.030) 07/09/17 09:28 Urine Protein 100 mg/dl mg/dL (Negative) 07/09/17 09:28 Urine Glucose (UA) 150 mg/dL (Negative) 07/09/17 09:28 Urine Ketones Neg mg/dL (Negative) 07/09/17 09:28 Urine Blood Lg (Negative) 07/09/17 09:28 Urine Nitrite Neg (Negative) 07/09/17 09:28 Urine Bilirubin Neg (Negative) 07/09/17 09:28 Urine Urobilinogen < 2.0 mg/dL (<2.0) 07/09/17 09:28 Ur Leukocyte Esterase Mod (Negative) 07/09/17 09:28 Urine WBC (Auto) 14.0 /HPF (0.0-6.0) H 07/09/17 09:28 Urine RBC (Auto) > 182.0 /HPF (0.0-6.0) 07/09/17 09:28 U Epithel Cells (Auto) 1.0 /HPF (0-13.0) 07/09/17 09:28 Urine Bacteria (Auto) 1+ /HPF (Negative) 07/09/17 09:28 Amorphous Crystals Few 07/09/17 09:28 Urine Mucus Few /HPF 07/09/17 09:28 Urine Eosinophils None seen (None Seen) 07/09/17 10:10 Urine Creatinine 55.0 mg/dL (0.1-20.0) H 07/09/17 09:28 Urine Sodium 108 mEq/L 07/10/17 00:00 Fraction Sodium Excret 8.5 07/09/17 09:28 Salicylates < 0.3 mg/dL (2.8-20.0) L 07/04/17 11:25 Urine Opiates Screen Presumptive negative 07/04/17 12:38 Urine Methadone Screen Presumptive negative 07/04/17 12:38 Acetaminophen < 15.0 ug/mL (10.0-30.0) 07/04/17 11:25 Ur Barbiturates Screen Presumptive negative 07/04/17 12:38 Ur Phencyclidine Scrn Presumptive negative 07/04/17 12:38 Ur Amphetamines Screen Presumptive positive 07/04/17 12:38 U Benzodiazepines Scrn Presumptive negative 07/04/17 12:38 Urine Cocaine Screen Presumptive negative 07/04/17 12:38 U Marijuana (THC) Screen Presumptive negative 07/04/17 12:38 Drugs of Abuse Note Disclamer 07/04/17 12:38 Plasma/Serum Alcohol < 0.01 gm% (0-0.07) 07/04/17 11:25 GILLES Screen Negative (Negative) 07/09/17 09:28 Proteinase 3 (PR3) Ab <1.0 AI (<1.0) 07/09/17 09:28 Myeloperoxidase Ab <1.0 AI (<1.0) 07/09/17 09:28 Double Strand DNA Ab <1 IU/mL (<=4) 07/09/17 09:28 Complement C3 66 mg/dL (90-180) L 07/09/17 09:28 Complement C4 15 mg/dL (16-47) L 07/09/17 09:28 Hepatitis A IgM Ab Non-reactive (NonReactive) 07/09/17 10:37 Hep Bs Antigen Non-reactive (Negative) 07/09/17 10:37 Hep B Core IgM Ab Non-reactive (NonReactive) 07/09/17 10:37 Hepatitis C Antibody Reactive (NonReactive) A 07/09/17 10:37
[2017-07-12] MEDS ORDERED: NACL 0.9 (PRIMING MACHINE ONLY DIALYSIS) MC ONE (13:39)
[2017-07-12] MEDS: HEPARIN IV PRN (15:43)
--- NOTE | 2017-07-12 15:47 | Progress Note ---
Assessment and Plan Imp: 1. DKA 2. Amphetamine abuse +/- withdrawal 3. Metabolic encephalopathy 4. Volume depletion 5. Hyperkalemia 6. BRITTANY, worsening 7. Acute respiratory failure, hypoxia 8. Pulm edema Rec: 1. Insulin per IMS; consider d/c D5W since tolerating PO now; note anion gap is creeping up again 2. Volume removal with HD 3. SubQ heparin; monitor platelets 4. Stable pulmonary-beltrán now on RA; will sign off for now but please call with questions, or if new issues arise Plan of care reviewed with patient, he understands/agrees Subjective Date of service: 07/12/17 Principal diagnosis: DKA, hypoxia Interval history: Alert and appropriate now. Eating normal diet. No complaints. On RA. Active Medications Albuterol (Proventil) 2.5 mg IH Q4H PRN PRN Reason: Shortness Of Breath Albuterol/Ipratropium (Duoneb *Not For Prn Use*) 1 ampul IH Q6HRT [facility] Last Admin: 07/12/17 14:34 Dose: 1 ampul Bisacodyl (Dulcolax) 10 mg DC QDAY PRN PRN Reason: constipation unrelieved by MOM Dextrose (D50w (25gm) Vial) 0 gm IV PRN PRN PRN Reason: Hypoglycemia Last Admin: 07/11/17 06:42 Dose: 25 gm Famotidine (Pepcid) 10 mg PO BID [facility] Last Admin: 07/12/17 09:18 Dose: 10 mg Heparin Sodium (Porcine) (Heparin) 5,000 unit SUB-Q BID [facility] Last Admin: 07/12/17 09:19 Dose: 5,000 unit Heparin Sodium (Porcine) (Heparin) 5,000 unit IV ROSY PRN PRN Reason: hemodialysis Last Admin: 07/10/17 18:28 Dose: 5,000 unit Heparin Sodium (Porcine) (Heparin 10,000 Units/10 Ml) 2,000 unit IV ROSY PRN PRN Reason: hemodialysis Last Admin: 07/10/17 18:28 Dose: 2,000 unit Hydrophilic Ointment (Vaseline Lip Therapy) 1 applic TP Q2HR PRN PRN Reason: Dry Lips Dextrose (D5w) 1,000 mls @ 42 mls/hr IV DIRECT [facility] Last Admin: 07/12/17 00:11 Dose: 42 mls/hr Sodium Chloride (Nacl 0.9%) 100 mls @ 999 mls/hr IV ROSY PRN PRN Reason: Hypotension Sodium Chloride (Nacl 0.9% 500 Ml) 500 mls @ 0 mls/hr IV ONCE NR PRN Reason: As Directed Stop: 07/12/17 23:59 Insulin Aspart (Novolog) 0 units SUB-Q Q6HR SHELIA PRN Reason: Protocol Last Admin: 07/12/17 12:38 Dose: Not Given Lorazepam (Ativan) 2 mg IV Q4H PRN PRN Reason: Agitation Last Admin: 07/12/17 10:00 Dose: 2 mg Magnesium Hydroxide (Milk Of Magnesia) 30 ml PO Q4H PRN PRN Reason: Constipation Multi-Ingred Cream/Lotion/Oil/Oint (Artificial Tears Ophth Oint) 1 applic OU Q4HR PRN PRN Reason: Dry Eye(s) Objective Vital Signs - 12hr 07/12/17 07/12/17 07/12/17 03:51 08:50 09:00 Temperature 98.3 F Pulse Rate 99 H Pulse Rate [ 100 H 104 H Anterior Bilateral Throughout] Respiratory 20 Rate Respiratory 20 20 Rate [Anterior Bilateral Throughout] Blood Pressure 124/70 O2 Sat by Pulse 98 97 Oximetry 07/12/17 07/12/17 07/12/17 10:30 10:45 11:00 Temperature 98.4 F Pulse Rate 94 H 93 H 94 H Pulse Rate [ Anterior Bilateral Throughout] Respiratory 18 Rate Respiratory Rate [Anterior Bilateral Throughout] Blood Pressure 133/83 140/87 133/85 O2 Sat by Pulse Oximetry 07/12/17 07/12/17 07/12/17 11:15 11:30 11:45 Temperature Pulse Rate 92 H 91 H 91 H Pulse Rate [ Anterior Bilateral Throughout] Respiratory Rate Respiratory Rate [Anterior Bilateral Throughout] Blood Pressure 136/88 142/85 131/84 O2 Sat by Pulse Oximetry 07/12/17 07/12/17 07/12/17 12:00 12:15 12:30 Temperature Pulse Rate 89 89 89 Pulse Rate [ Anterior Bilateral Throughout] Respiratory Rate Respiratory Rate [Anterior Bilateral Throughout] Blood Pressure 140/86 134/84 134/85 O2 Sat by Pulse Oximetry 07/12/17 07/12/17 07/12/17 12:45 13:00 13:15 Temperature Pulse Rate 88 84 94 H Pulse Rate [ Anterior Bilateral Throughout] Respiratory Rate Respiratory Rate [Anterior Bilateral Throughout] Blood Pressure 137/87 136/86 149/92 O2 Sat by Pulse Oximetry 07/12/17 07/12/17 07/12/17 13:30 13:40 14:34 Temperature 98.4 F Pulse Rate 88 86 Pulse Rate [ 103 H Anterior Bilateral Throughout] Respiratory 18 Rate Respiratory 20 Rate [Anterior Bilateral Throughout] Blood Pressure 134/87 134/86 O2 Sat by Pulse Oximetry 07/12/17 14:45 Temperature Pulse Rate Pulse Rate [ 102 H Anterior Bilateral Throughout] Respiratory Rate Respiratory 20 Rate [Anterior Bilateral Throughout] Blood Pressure O2 Sat by Pulse Oximetry Constitutional: no acute distress, alert Eyes: non-icteric ENT: oropharynx moist Neck: supple Effort: normal Ascultation: Bilateral: rales (few in bases) Cardiovascular: regular rate and rhythm (no mrg) Gastrointestinal: normoactive bowel sounds, soft, non-tender, non-distended Integumentary: normal Extremities: no cyanosis, no edema, pink and warm Neurologic: normal mental status, non-focal exam, pupils equal and round, CN II- XII normal Psychiatric: mood appropriate, affect normal CBC and BMP: 07/12/17 05:00 07/12/17 05:00 ABG, PT/INR, D-dimer: ABG POC ABG pH 7.028 (7.35-7.45) L 07/07/17 10:29 POC ABG pCO2 11.9 (35-45) L 07/07/17 10:29 POC ABG pO2 129 (80-105) H 07/07/17 10:29 POC ABG HCO3 3.1 07/07/17 10:29 POC ABG Total CO2 < 5 07/07/17 10:29 POC ABG O2 Sat 97 07/07/17 10:29 PT/INR, D-dimer PT 16.3 Sec. (12.2-14.9) H 07/04/17 11:31 INR 1.25 (0.87-1.13) H 07/04/17 11:31 Abnormal lab findings: Abnormal Labs 07/04/17 07/04/17 07/04/17 12:45 12:45 12:45 WBC 21.3 H RBC 3.48 L Hgb 9.9 L Hct MCV 108 H MCH MCHC 26 L RDW 16.3 H Plt Count Seg Neuts % (Manual) 89.0 H Lymphocytes % (Manual) 2.0 L Seg Neutrophils # Man 19.0 H Lymphocytes # (Manual) 0.4 L Monocytes # (Manual) 1.1 H POC ABG pH POC ABG pCO2 POC ABG pO2 VBG pH Sodium 132 L Potassium Chloride 90.9 L Carbon Dioxide 6 L* BUN 31 H Creatinine Glucose 1112 H* POC Glucose Lactic Acid Uric Acid Calcium 7.3 L Phosphorus 8.60 H Magnesium Urine WBC (Auto) Urine Creatinine Complement C3 Complement C4 Hepatitis C Antibody Crossmatch 07/04/17 07/04/17 07/04/17 13:20 14:28 14:28 WBC RBC Hgb Hct MCV MCH MCHC RDW Plt Count Seg Neuts % (Manual) Lymphocytes % (Manual) Seg Neutrophils # Man Lymphocytes # (Manual) Monocytes # (Manual) POC ABG pH 6.743 L POC ABG pCO2 53.9 H POC ABG pO2 259 H VBG pH Sodium 134 L Potassium 5.3 H Chloride 94.5 L Carbon Dioxide 6 L* BUN 31 H Creatinine Glucose 1060 H* POC Glucose Lactic Acid 3.20 H* Uric Acid Calcium 6.8 L Phosphorus Magnesium Urine WBC (Auto) Urine Creatinine Complement C3 Complement C4 Hepatitis C Antibody Crossmatch 07/04/17 07/04/17 07/04/17 15:56 18:00 18:23 WBC RBC Hgb Hct MCV MCH MCHC RDW Plt Count Seg Neuts % (Manual) Lymphocytes % (Manual) Seg Neutrophils # Man Lymphocytes # (Manual) Monocytes # (Manual) POC ABG pH POC ABG pCO2 POC ABG pO2 VBG pH Sodium 133 L Potassium 3.5 L D Chloride 97.1 L Carbon Dioxide 7 L* 5 L* BUN 30 H 28 H Creatinine 1.6 H Glucose 1002 H* 988 H* POC Glucose > 500 H Lactic Acid Uric Acid Calcium 6.7 L 6.1 L Phosphorus Magnesium Urine WBC (Auto) Urine Creatinine Complement C3 Complement C4 Hepatitis C Antibody Crossmatch 07/04/17 07/04/17 07/04/17 20:05 20:29 21:21 WBC RBC Hgb Hct MCV MCH MCHC RDW Plt Count Seg Neuts % (Manual) Lymphocytes % (Manual) Seg Neutrophils # Man Lymphocytes # (Manual) Monocytes # (Manual) POC ABG pH POC ABG pCO2 POC ABG pO2 VBG pH Sodium Potassium 3.3 L Chloride Carbon Dioxide 5 L* BUN 29 H Creatinine 1.8 H Glucose 542 H* POC Glucose 487 H 410 H Lactic Acid Uric Acid Calcium 6.5 L Phosphorus Magnesium Urine WBC (Auto) Urine Creatinine Complement C3 Complement C4 Hepatitis C Antibody Crossmatch 07/04/17 07/04/17 07/05/17 22:42 23:25 00:22 WBC RBC Hgb Hct MCV MCH MCHC RDW Plt Count Seg Neuts % (Manual) Lymphocytes % (Manual) Seg Neutrophils # Man Lymphocytes # (Manual) Monocytes # (Manual) POC ABG pH POC ABG pCO2 POC ABG pO2 VBG pH Sodium Potassium Chloride Carbon Dioxide BUN Creatinine Glucose POC Glucose 360 H 338 H 276 H Lactic Acid Uric Acid Calcium Phosphorus Magnesium Urine WBC (Auto) Urine Creatinine Complement C3 Complement C4 Hepatitis C Antibody Crossmatch 07/05/17 07/05/17 07/05/17 01:23 03:06 04:30 WBC RBC Hgb Hct MCV MCH MCHC RDW Plt Count Seg Neuts % (Manual) Lymphocytes % (Manual) Seg Neutrophils # Man Lymphocytes # (Manual) Monocytes # (Manual) POC ABG pH POC ABG pCO2 POC ABG pO2 VBG pH Sodium Potassium 3.0 L Chloride 118.7 H Carbon Dioxide 15 L D BUN 25 H Creatinine 1.6 H Glucose 63 L POC Glucose 245 H 213 H Lactic Acid Uric Acid Calcium 6.0 L Phosphorus Magnesium Urine WBC (Auto) Urine Creatinine Complement C3 Complement C4 Hepatitis C Antibody Crossmatch 07/05/17 07/05/17 07/05/17 06:04 06:52 08:09 WBC RBC Hgb Hct MCV MCH MCHC RDW Plt Count Seg Neuts % (Manual) Lymphocytes % (Manual) Seg Neutrophils # Man Lymphocytes # (Manual) Monocytes # (Manual) POC ABG pH 7.179 L POC ABG pCO2 POC ABG pO2 263 H VBG pH Sodium Potassium Chloride Carbon Dioxide BUN Creatinine Glucose POC Glucose 159 H 174 H Lactic Acid Uric Acid Calcium Phosphorus Magnesium Urine WBC (Auto) Urine Creatinine Complement C3 Complement C4 Hepatitis C Antibody Crossmatch 07/05/17 07/05/17 07/06/17 17:56 23:59 01:00 WBC RBC Hgb Hct MCV MCH MCHC RDW Plt Count Seg Neuts % (Manual) Lymphocytes % (Manual) Seg Neutrophils # Man Lymphocytes # (Manual) Monocytes # (Manual) POC ABG pH 7.231 L POC ABG pCO2 33.4 L POC ABG pO2 149 H VBG pH Sodium Potassium Chloride Carbon Dioxide BUN Creatinine Glucose POC Glucose 208 H 41 L Lactic Acid Uric Acid Calcium Phosphorus Magnesium Urine WBC (Auto) Urine Creatinine Complement C3 Complement C4 Hepatitis C Antibody Crossmatch 07/06/17 07/06/17 07/06/17 01:29 02:22 03:04 WBC 11.9 H RBC 3.43 L Hgb 9.9 L Hct 32.9 L MCV MCH MCHC RDW 15.7 H Plt Count 123 L Seg Neuts % (Manual) Lymphocytes % (Manual) Seg Neutrophils # Man Lymphocytes # (Manual) Monocytes # (Manual) POC ABG pH POC ABG pCO2 POC ABG pO2 VBG pH Sodium Potassium Chloride Carbon Dioxide BUN Creatinine Glucose POC Glucose < 40 L 64 L Lactic Acid Uric Acid Calcium Phosphorus Magnesium Urine WBC (Auto) Urine Creatinine Complement C3 Complement C4 Hepatitis C Antibody Crossmatch 07/06/17 07/06/17 07/06/17 03:04 05:50 16:34 WBC RBC Hgb Hct MCV MCH MCHC RDW Plt Count Seg Neuts % (Manual) Lymphocytes % (Manual) Seg Neutrophils # Man Lymphocytes # (Manual) Monocytes # (Manual) POC ABG pH POC ABG pCO2 POC ABG pO2 VBG pH Sodium Potassium Chloride 110.7 H Carbon Dioxide 13 L BUN 29 H Creatinine 2.7 H D Glucose POC Glucose 56 L 210 H Lactic Acid Uric Acid Calcium 6.4 L Phosphorus 2.00 L Magnesium 1.40 L Urine WBC (Auto) Urine Creatinine Complement C3 Complement C4 Hepatitis C Antibody Crossmatch 07/06/17 07/07/17 07/07/17 20:47 06:46 10:29 WBC RBC Hgb Hct MCV MCH MCHC RDW Plt Count Seg Neuts % (Manual) Lymphocytes % (Manual) Seg Neutrophils # Man Lymphocytes # (Manual) Monocytes # (Manual) POC ABG pH 7.028 L POC ABG pCO2 11.9 L POC ABG pO2 129 H VBG pH Sodium Potassium Chloride Carbon Dioxide BUN Creatinine Glucose POC Glucose 200 H 351 H Lactic Acid Uric Acid Calcium Phosphorus Magnesium Urine WBC (Auto) Urine Creatinine Complement C3 Complement C4 Hepatitis C Antibody Crossmatch 07/07/17 07/07/17 07/07/17 10:45 11:06 13:10 WBC RBC Hgb Hct MCV MCH MCHC RDW Plt Count Seg Neuts % (Manual) Lymphocytes % (Manual) Seg Neutrophils # Man Lymphocytes # (Manual) Monocytes # (Manual) POC ABG pH POC ABG pCO2 POC ABG pO2 VBG pH Sodium Potassium 5.4 H D 6.0 H Chloride 108.2 H Carbon Dioxide 2 L* D 5 L* BUN 43 H 44 H Creatinine 4.6 H D 4.5 H Glucose 349 H 347 H POC Glucose 248 H Lactic Acid Uric Acid Calcium 7.0 L 7.1 L Phosphorus 4.60 H D Magnesium Urine WBC (Auto) Urine Creatinine Complement C3 Complement C4 Hepatitis C Antibody Crossmatch 07/07/17 07/07/17 07/07/17 14:47 15:27 16:13 WBC RBC Hgb Hct MCV MCH MCHC RDW Plt Count Seg Neuts % (Manual) Lymphocytes % (Manual) Seg Neutrophils # Man Lymphocytes # (Manual) Monocytes # (Manual) POC ABG pH POC ABG pCO2 POC ABG pO2 VBG pH 7.269 L Sodium Potassium 5.4 H Chloride 107.4 H Carbon Dioxide 5 L* BUN 44 H Creatinine 4.3 H Glucose 439 H POC Glucose 285 H Lactic Acid Uric Acid Calcium 6.9 L Phosphorus Magnesium Urine WBC (Auto) Urine Creatinine Complement C3 Complement C4 Hepatitis C Antibody Crossmatch 07/07/17 07/07/17 07/07/17 16:27 17:13 18:03 WBC RBC Hgb Hct MCV MCH MCHC RDW Plt Count Seg Neuts % (Manual) Lymphocytes % (Manual) Seg Neutrophils # Man Lymphocytes # (Manual) Monocytes # (Manual) POC ABG pH POC ABG pCO2 POC ABG pO2 VBG pH Sodium Potassium Chloride 110.2 H Carbon Dioxide 8 L* BUN 44 H Creatinine 4.6 H Glucose 247 H POC Glucose 328 H 207 H Lactic Acid Uric Acid Calcium 6.7 L Phosphorus Magnesium Urine WBC (Auto) Urine Creatinine Complement C3 Complement C4 Hepatitis C Antibody Crossmatch 07/07/17 07/07/17 07/07/17 18:24 19:24 22:06 WBC RBC Hgb Hct MCV MCH MCHC RDW Plt Count Seg Neuts % (Manual) Lymphocytes % (Manual) Seg Neutrophils # Man Lymphocytes # (Manual) Monocytes # (Manual) POC ABG pH POC ABG pCO2 POC ABG pO2 VBG pH Sodium Potassium Chloride 112.3 H Carbon Dioxide 12 L BUN 44 H Creatinine 4.9 H Glucose POC Glucose 140 H 129 H Lactic Acid Uric Acid Calcium 7.0 L Phosphorus Magnesium Urine WBC (Auto) Urine Creatinine Complement C3 Complement C4 Hepatitis C Antibody Crossmatch 07/07/17 07/07/17 07/07/17 23:15 23:17 23:57 WBC RBC Hgb Hct MCV MCH MCHC RDW Plt Count Seg Neuts % (Manual) Lymphocytes % (Manual) Seg Neutrophils # Man Lymphocytes # (Manual) Monocytes # (Manual) POC ABG pH POC ABG pCO2 POC ABG pO2 VBG pH Sodium Potassium Chloride 111.8 H Carbon Dioxide 13 L BUN 46 H Creatinine 4.9 H Glucose 161 H POC Glucose 182 H 146 H Lactic Acid Uric Acid Calcium 7.1 L Phosphorus Magnesium Urine WBC (Auto) Urine Creatinine Complement C3 Complement C4 Hepatitis C Antibody Crossmatch 07/08/17 07/08/17 07/08/17 02:00 02:55 03:54 WBC RBC Hgb Hct MCV MCH MCHC RDW Plt Count Seg Neuts % (Manual) Lymphocytes % (Manual) Seg Neutrophils # Man Lymphocytes # (Manual) Monocytes # (Manual) POC ABG pH POC ABG pCO2 POC ABG pO2 VBG pH Sodium Potassium Chloride Carbon Dioxide BUN Creatinine Glucose POC Glucose 125 H 180 H 157 H Lactic Acid Uric Acid Calcium Phosphorus Magnesium Urine WBC (Auto) Urine Creatinine Complement C3 Complement C4 Hepatitis C Antibody Crossmatch 07/08/17 07/08/17 07/08/17 04:45 06:27 08:05 WBC RBC Hgb Hct MCV MCH MCHC RDW Plt Count Seg Neuts % (Manual) Lymphocytes % (Manual) Seg Neutrophils # Man Lymphocytes # (Manual) Monocytes # (Manual) POC ABG pH POC ABG pCO2 POC ABG pO2 VBG pH Sodium Potassium Chloride 113.1 H Carbon Dioxide 13 L BUN 46 H Creatinine 5.4 H Glucose POC Glucose 153 H 166 H Lactic Acid Uric Acid Calcium 7.0 L Phosphorus Magnesium Urine WBC (Auto) Urine Creatinine Complement C3 Complement C4 Hepatitis C Antibody Crossmatch 07/08/17 07/08/17 07/08/17 08:58 10:11 13:11 WBC RBC Hgb Hct MCV MCH MCHC RDW Plt Count Seg Neuts % (Manual) Lymphocytes % (Manual) Seg Neutrophils # Man Lymphocytes # (Manual) Monocytes # (Manual) POC ABG pH POC ABG pCO2 POC ABG pO2 VBG pH Sodium Potassium Chloride Carbon Dioxide BUN Creatinine Glucose POC Glucose 118 H 117 H 142 H Lactic Acid Uric Acid Calcium Phosphorus Magnesium Urine WBC (Auto) Urine Creatinine Complement C3 Complement C4 Hepatitis C Antibody Crossmatch 07/08/17 07/08/17 07/08/17 13:21 14:31 15:57 WBC RBC Hgb Hct MCV MCH MCHC RDW Plt Count Seg Neuts % (Manual) Lymphocytes % (Manual) Seg Neutrophils # Man Lymphocytes # (Manual) Monocytes # (Manual) POC ABG pH POC ABG pCO2 POC ABG pO2 VBG pH Sodium 135 L D Potassium 6.4 H* D Chloride Carbon Dioxide 12 L BUN 44 H Creatinine 4.8 H Glucose 524 H* POC Glucose 197 H 168 H Lactic Acid Uric Acid Calcium 6.5 L Phosphorus Magnesium Urine WBC (Auto) Urine Creatinine Complement C3 Complement C4 Hepatitis C Antibody Crossmatch 07/08/17 07/08/17 07/08/17 19:06 20:38 21:10 WBC RBC Hgb Hct MCV MCH MCHC RDW Plt Count Seg Neuts % (Manual) Lymphocytes % (Manual) Seg Neutrophils # Man Lymphocytes # (Manual) Monocytes # (Manual) POC ABG pH POC ABG pCO2 POC ABG pO2 VBG pH Sodium Potassium Chloride Carbon Dioxide BUN Creatinine Glucose POC Glucose 149 H 120 H 108 H Lactic Acid Uric Acid Calcium Phosphorus Magnesium Urine WBC (Auto) Urine Creatinine Complement C3 Complement C4 Hepatitis C Antibody Crossmatch 07/08/17 07/09/17 07/09/17 23:32 00:12 01:12 WBC RBC Hgb Hct MCV MCH MCHC RDW Plt Count Seg Neuts % (Manual) Lymphocytes % (Manual) Seg Neutrophils # Man Lymphocytes # (Manual) Monocytes # (Manual) POC ABG pH POC ABG pCO2 POC ABG pO2 VBG pH Sodium Potassium Chloride Carbon Dioxide BUN Creatinine Glucose POC Glucose 67 L 131 H 161 H Lactic Acid Uric Acid Calcium Phosphorus Magnesium Urine WBC (Auto) Urine Creatinine Complement C3 Complement C4 Hepatitis C Antibody Crossmatch 07/09/17 07/09/17 07/09/17 01:59 03:02 03:57 WBC RBC Hgb Hct MCV MCH MCHC RDW Plt Count Seg Neuts % (Manual) Lymphocytes % (Manual) Seg Neutrophils # Man Lymphocytes # (Manual) Monocytes # (Manual) POC ABG pH POC ABG pCO2 POC ABG pO2 VBG pH Sodium Potassium Chloride Carbon Dioxide BUN Creatinine Glucose POC Glucose 253 H 128 H Lactic Acid Uric Acid 9.5 H Calcium Phosphorus Magnesium Urine WBC (Auto) Urine Creatinine Complement C3 Complement C4 Hepatitis C Antibody Crossmatch 07/09/17 07/09/17 07/09/17 03:57 03:57 06:23 WBC RBC 3.10 L Hgb 8.7 L Hct 27.5 L MCV MCH MCHC RDW 16.9 H Plt Count Seg Neuts % (Manual) Lymphocytes % (Manual) Seg Neutrophils # Man Lymphocytes # (Manual) Monocytes # (Manual) POC ABG pH POC ABG pCO2 POC ABG pO2 VBG pH Sodium Potassium Chloride 112.0 H Carbon Dioxide 11 L BUN 48 H Creatinine 5.7 H Glucose POC Glucose 63 L Lactic Acid Uric Acid Calcium 7.4 L Phosphorus Magnesium Urine WBC (Auto) Urine Creatinine Complement C3 Complement C4 Hepatitis C Antibody Crossmatch 07/09/17 07/09/17 07/09/17 07:38 08:26 09:28 WBC RBC Hgb Hct MCV MCH MCHC RDW Plt Count Seg Neuts % (Manual) Lymphocytes % (Manual) Seg Neutrophils # Man Lymphocytes # (Manual) Monocytes # (Manual) POC ABG pH POC ABG pCO2 POC ABG pO2 VBG pH Sodium Potassium Chloride Carbon Dioxide BUN Creatinine Glucose POC Glucose 175 H 206 H Lactic Acid Uric Acid Calcium Phosphorus Magnesium Urine WBC (Auto) 14.0 H Urine Creatinine Complement C3 Complement C4 Hepatitis C Antibody Crossmatch 07/09/17 07/09/17 07/09/17 09:28 09:28 09:28 WBC RBC Hgb Hct MCV MCH MCHC RDW Plt Count Seg Neuts % (Manual) Lymphocytes % (Manual) Seg Neutrophils # Man Lymphocytes # (Manual) Monocytes # (Manual) POC ABG pH POC ABG pCO2 POC ABG pO2 VBG pH Sodium 129 L D Potassium Chloride Carbon Dioxide BUN Creatinine 5.6 H Glucose POC Glucose Lactic Acid Uric Acid Calcium Phosphorus Magnesium Urine WBC (Auto) Urine Creatinine 55.0 H Complement C3 66 L Complement C4 Hepatitis C Antibody Crossmatch 07/09/17 07/09/17 07/09/17 09:28 10:21 10:37 WBC RBC Hgb Hct MCV MCH MCHC RDW Plt Count Seg Neuts % (Manual) Lymphocytes % (Manual) Seg Neutrophils # Man Lymphocytes # (Manual) Monocytes # (Manual) POC ABG pH POC ABG pCO2 POC ABG pO2 VBG pH Sodium Potassium Chloride Carbon Dioxide BUN Creatinine Glucose POC Glucose 124 H Lactic Acid Uric Acid Calcium Phosphorus Magnesium Urine WBC (Auto) Urine Creatinine Complement C3 Complement C4 15 L Hepatitis C Antibody Reactive A Crossmatch 07/09/17 07/09/17 07/09/17 12:31 13:49 14:49 WBC RBC Hgb Hct MCV MCH MCHC RDW Plt Count Seg Neuts % (Manual) Lymphocytes % (Manual) Seg Neutrophils # Man Lymphocytes # (Manual) Monocytes # (Manual) POC ABG pH POC ABG pCO2 POC ABG pO2 VBG pH Sodium Potassium Chloride Carbon Dioxide BUN Creatinine Glucose POC Glucose 123 H 179 H 112 H Lactic Acid Uric Acid Calcium Phosphorus Magnesium Urine WBC (Auto) Urine Creatinine Complement C3 Complement C4 Hepatitis C Antibody Crossmatch 07/09/17 07/09/17 07/09/17 15:29 18:46 20:08 WBC RBC Hgb Hct MCV MCH MCHC RDW Plt Count Seg Neuts % (Manual) Lymphocytes % (Manual) Seg Neutrophils # Man Lymphocytes # (Manual) Monocytes # (Manual) POC ABG pH POC ABG pCO2 POC ABG pO2 VBG pH Sodium Potassium Chloride Carbon Dioxide BUN Creatinine Glucose POC Glucose 122 H 136 H 158 H Lactic Acid Uric Acid Calcium Phosphorus Magnesium Urine WBC (Auto) Urine Creatinine Complement C3 Complement C4 Hepatitis C Antibody Crossmatch 07/09/17 07/10/17 07/10/17 21:03 00:01 01:00 WBC RBC Hgb Hct MCV MCH MCHC RDW Plt Count Seg Neuts % (Manual) Lymphocytes % (Manual) Seg Neutrophils # Man Lymphocytes # (Manual) Monocytes # (Manual) POC ABG pH POC ABG pCO2 POC ABG pO2 VBG pH Sodium Potassium Chloride Carbon Dioxide BUN Creatinine Glucose POC Glucose 132 H 125 H 127 H Lactic Acid Uric Acid Calcium Phosphorus Magnesium Urine WBC (Auto) Urine Creatinine Complement C3 Complement C4 Hepatitis C Antibody Crossmatch 07/10/17 07/10/17 07/10/17 02:03 03:08 03:55 WBC RBC Hgb Hct MCV MCH MCHC RDW Plt Count Seg Neuts % (Manual) Lymphocytes % (Manual) Seg Neutrophils # Man Lymphocytes # (Manual) Monocytes # (Manual) POC ABG pH POC ABG pCO2 POC ABG pO2 VBG pH Sodium Potassium Chloride Carbon Dioxide BUN Creatinine Glucose POC Glucose 152 H 125 H 146 H Lactic Acid Uric Acid Calcium Phosphorus Magnesium Urine WBC (Auto) Urine Creatinine Complement C3 Complement C4 Hepatitis C Antibody Crossmatch 07/10/17 07/10/17 07/10/17 05:04 05:04 06:56 WBC RBC 2.81 L Hgb 8.3 L Hct 23.7 L MCV MCH MCHC 35 H RDW 15.5 H Plt Count 131 L Seg Neuts % (Manual) Lymphocytes % (Manual) Seg Neutrophils # Man Lymphocytes # (Manual) Monocytes # (Manual) POC ABG pH POC ABG pCO2 POC ABG pO2 VBG pH Sodium Potassium Chloride Carbon Dioxide 21 L D BUN 27 H Creatinine 4.1 H Glucose POC Glucose 140 H Lactic Acid Uric Acid Calcium 7.0 L Phosphorus Magnesium Urine WBC (Auto) Urine Creatinine Complement C3 Complement C4 Hepatitis C Antibody Crossmatch 07/10/17 07/10/17 07/10/17 07:49 11:58 16:19 WBC RBC Hgb Hct MCV MCH MCHC RDW Plt Count Seg Neuts % (Manual) Lymphocytes % (Manual) Seg Neutrophils # Man Lymphocytes # (Manual) Monocytes # (Manual) POC ABG pH POC ABG pCO2 POC ABG pO2 VBG pH Sodium Potassium Chloride Carbon Dioxide BUN Creatinine Glucose POC Glucose 195 H 395 H 428 H Lactic Acid Uric Acid Calcium Phosphorus Magnesium Urine WBC (Auto) Urine Creatinine Complement C3 Complement C4 Hepatitis C Antibody Crossmatch 07/11/17 07/11/17 07/11/17 05:48 06:00 06:00 WBC RBC 2.76 L Hgb 7.6 L Hct 23.3 L MCV MCH 27 L MCHC RDW 15.3 H Plt Count 127 L Seg Neuts % (Manual) Lymphocytes % (Manual) Seg Neutrophils # Man Lymphocytes # (Manual) Monocytes # (Manual) POC ABG pH POC ABG pCO2 POC ABG pO2 VBG pH Sodium Potassium Chloride Carbon Dioxide BUN Creatinine 3.5 H Glucose 40 L POC Glucose 44 L Lactic Acid Uric Acid Calcium 7.2 L Phosphorus Magnesium Urine WBC (Auto) Urine Creatinine Complement C3 Complement C4 Hepatitis C Antibody Crossmatch 07/11/17 07/11/17 07/11/17 06:39 07:20 16:47 WBC RBC Hgb Hct MCV MCH MCHC RDW Plt Count Seg Neuts % (Manual) Lymphocytes % (Manual) Seg Neutrophils # Man Lymphocytes # (Manual) Monocytes # (Manual) POC ABG pH POC ABG pCO2 POC ABG pO2 VBG pH Sodium Potassium Chloride Carbon Dioxide BUN Creatinine Glucose POC Glucose 52 L 121 H 176 H Lactic Acid Uric Acid Calcium Phosphorus Magnesium Urine WBC (Auto) Urine Creatinine Complement C3 Complement C4 Hepatitis C Antibody Crossmatch 07/11/17 07/12/17 07/12/17 21:40 00:30 05:00 WBC RBC 2.57 L Hgb 7.1 L Hct 22.1 L MCV MCH MCHC RDW 15.5 H Plt Count 127 L Seg Neuts % (Manual) Lymphocytes % (Manual) Seg Neutrophils # Man Lymphocytes # (Manual) Monocytes # (Manual) POC ABG pH POC ABG pCO2 POC ABG pO2 VBG pH Sodium Potassium Chloride Carbon Dioxide BUN Creatinine Glucose POC Glucose 464 H 495 H Lactic Acid Uric Acid Calcium Phosphorus Magnesium Urine WBC (Auto) Urine Creatinine Complement C3 Complement C4 Hepatitis C Antibody Crossmatch 07/12/17 07/12/17 07/12/17 05:00 05:11 12:41 WBC RBC Hgb Hct MCV MCH MCHC RDW Plt Count Seg Neuts % (Manual) Lymphocytes % (Manual) Seg Neutrophils # Man Lymphocytes # (Manual) Monocytes # (Manual) POC ABG pH POC ABG pCO2 POC ABG pO2 VBG pH Sodium 134 L Potassium Chloride Carbon Dioxide 16 L D BUN 27 H Creatinine 4.8 H Glucose 259 H POC Glucose 299 H Lactic Acid Uric Acid Calcium 7.4 L Phosphorus Magnesium Urine WBC (Auto) Urine Creatinine Complement C3 Complement C4 Hepatitis C Antibody Crossmatch See Detail Chest x-ray: report reviewed, image reviewed
[2017-07-12] MEDS: LEVEMIR SUB-Q SCH (22:30)
[2017-07-13] MEDS: DUONEB *Not for PRN Use IH SCH ×4 (02:42→20:20)
[2017-07-13] MEDS: ATIVAN IV PRN (03:04)
[2017-07-13] MEDS: THERMAZENE 50 GRAM TP SCH ×2 (05:50→11:35)
[2017-07-13] MEDS: D50W (25GM) Vial IV PRN ×3 (06:15→10:09)
[2017-07-13] MEDS: NOVOLOG SUB-Q SCH ×4 (06:44→18:00)
--- NOTE | 2017-07-13 08:24 | Progress Note ---
Assessment and Plan Assessment and plan: 42-year-old male with medical history significant for diabetes mellitus type 1, drug abuse admitted to the hospital for altered mental status, DKA, drug overdose, Sepsis with hypotension. Patient is intubated on admission and extubated on 07/06/2017 DKA - Managed according to DKA protocol and resolved Diabetes mellitus with hyperglycemia - Patient is currently on insulin protocol Sepsis - Blood cultures are negative - patient is off antibiotics Acute toxic metabolic encephalopathy due to amphetamine: Unchanged - Improving Acute blood loss anemia - No subsequent bleeding, hemoglobin this morning is 7.1 - We will transfuse if hemoglobin is below 7.0 Metabolic acidosis: - Resolved Acute respiratory failure, extubated 07/06/17 - Resolved ARF, vasomotor nephropathy: - Nephrology is following, continue dialysis Thrombocytopenia - Patient count is 149 DVT prophylaxis - Continue SCDs Disposition - Continue inpatient care. History Interval history: Patient was seen and evaluated this morning, patient's complaint of back pain. Hospitalist Physical - Physical exam Narrative exam: Not in cardiopulmonary distress. The patient appeared well nourished and normally developed. Vital signs as documented. Head exam is unremarkable. No scleral icterus . Neck is without jugular venous distension, thyromegaly, or carotid bruits. Lungs are clear to auscultation. Cardiac exam reveals regular rate and Rhythm. First and second heart sounds normal. No murmurs, rubs or gallops. Abdominal exam reveals normal bowel sounds, no masses, no organomegaly and no aortic enlargement. Extremities are nonedematous and both femoral and pedal pulses are normal. [employer]: Alert and oriented 3. No focal weakness. - Constitutional Vitals: Temp Pulse Resp BP Pulse Ox 98.1 F 92 H 22 132/76 97 07/13/17 06:30 07/13/17 06:00 07/13/17 06:30 07/13/17 06:30 07/13/17 06:30 General appearance: Present: no acute distress. Absent: other Results - Labs CBC & Chem 7: 07/13/17 12:30 07/13/17 06:20 Labs: Laboratory Last Values WBC 5.1 K/mm3 (4.5-11.0) 07/12/17 05:00 RBC 2.57 M/mm3 (3.65-5.03) L 07/12/17 05:00 Hgb 7.1 gm/dl (11.8-15.2) L 07/12/17 05:00 Hct 22.1 % (35.5-45.6) L 07/12/17 05:00 MCV 86 fl (84-94) 07/12/17 05:00 MCH 28 pg (28-32) 07/12/17 05:00 MCHC 32 % (32-34) 07/12/17 05:00 RDW 15.5 % (13.2-15.2) H 07/12/17 05:00 Plt Count 127 K/mm3 (140-440) L 07/12/17 05:00 Add Manual Diff Complete 07/04/17 12:45 Total Counted 100 07/04/17 12:45 Seg Neuts % (Manual) 89.0 % (40.0-70.0) H 07/04/17 12:45 Band Neutrophils % 4.0 % 07/04/17 12:45 Lymphocytes % (Manual) 2.0 % (13.4-35.0) L 07/04/17 12:45 Reactive Lymphs % (Man) 0 % 07/04/17 12:45 Monocytes % (Manual) 5.0 % (0.0-7.3) 07/04/17 12:45 Eosinophils % (Manual) 0 % (0.0-4.3) 07/04/17 12:45 Basophils % (Manual) 0 % (0.0-1.8) 07/04/17 12:45 Metamyelocytes % 0 % 07/04/17 12:45 Myelocytes % 0 % 07/04/17 12:45 Promyelocytes % 0 % 07/04/17 12:45 Blast Cells % 0 % 07/04/17 12:45 Nucleated RBC % Not Reportable 07/04/17 12:45 Seg Neutrophils # Man 19.0 K/mm3 (1.8-7.7) H 07/04/17 12:45 Band Neutrophils # 0.9 K/mm3 07/04/17 12:45 Lymphocytes # (Manual) 0.4 K/mm3 (1.2-5.4) L 07/04/17 12:45 Abs React Lymphs (Man) 0.0 K/mm3 07/04/17 12:45 Monocytes # (Manual) 1.1 K/mm3 (0.0-0.8) H 07/04/17 12:45 Eosinophils # (Manual) 0.0 K/mm3 (0.0-0.4) 07/04/17 12:45 Basophils # (Manual) 0.0 K/mm3 (0.0-0.1) 07/04/17 12:45 Metamyelocytes # 0.0 K/mm3 07/04/17 12:45 Myelocytes # 0.0 K/mm3 07/04/17 12:45 Promyelocytes # 0.0 K/mm3 07/04/17 12:45 Blast Cells # 0.0 K/mm3 07/04/17 12:45 WBC Morphology Not Reportable 07/04/17 12:45 Hypersegmented Neuts Not Reportable 07/04/17 12:45 Hyposegmented Neuts Not Reportable 07/04/17 12:45 Hypogranular Neuts Not Reportable 07/04/17 12:45 Smudge Cells Not Reportable 07/04/17 12:45 Toxic Granulation Not Reportable 07/04/17 12:45 Toxic Vacuolation Not Reportable 07/04/17 12:45 Dohle Bodies Not Reportable 07/04/17 12:45 Pelger-Huet Anomaly Not Reportable 07/04/17 12:45 Deyanira Rods Not Reportable 07/04/17 12:45 Platelet Estimate Appears normal 07/04/17 12:45 Clumped Platelets Not Reportable 07/04/17 12:45 Plt Clumps, EDTA Not Reportable 07/04/17 12:45 Large Platelets Not Reportable 07/04/17 12:45 Giant Platelets Not Reportable 07/04/17 12:45 Platelet Satelliting Not Reportable 07/04/17 12:45 Plt Morphology Comment Not Reportable 07/04/17 12:45 RBC Morphology Not Reportable 07/04/17 12:45 Dimorphic RBCs Not Reportable 07/04/17 12:45 Polychromasia Not Reportable 07/04/17 12:45 Hypochromasia Not Reportable 07/04/17 12:45 Poikilocytosis Not Reportable 07/04/17 12:45 Anisocytosis 2+ 07/04/17 12:45 Microcytosis Not Reportable 07/04/17 12:45 Macrocytosis 2+ 07/04/17 12:45 Spherocytes Not Reportable 07/04/17 12:45 Pappenheimer Bodies Not Reportable 07/04/17 12:45 Sickle Cells Not Reportable 07/04/17 12:45 Target Cells Not Reportable 07/04/17 12:45 Tear Drop Cells Not Reportable 07/04/17 12:45 Ovalocytes Not Reportable 07/04/17 12:45 Helmet Cells Not Reportable 07/04/17 12:45 Hernandez-Penfield Bodies Not Reportable 07/04/17 12:45 [place] Rings Not Reportable 07/04/17 12:45 Shawn Cells Not Reportable 07/04/17 12:45 Bite Cells Not Reportable 07/04/17 12:45 Crenated Cell Not Reportable 07/04/17 12:45 Elliptocytes Not Reportable 07/04/17 12:45 Acanthocytes (Spur) Not Reportable 07/04/17 12:45 Rouleaux Not Reportable 07/04/17 12:45 Hemoglobin C Crystals Not Reportable 07/04/17 12:45 Schistocytes Not Reportable 07/04/17 12:45 Malaria parasites Not Reportable 07/04/17 12:45 Andrei Bodies Not Reportable 07/04/17 12:45 Hem Pathologist Commnt No 07/04/17 12:45 PT 16.3 Sec. (12.2-14.9) H 07/04/17 11:31 INR 1.25 (0.87-1.13) H 07/04/17 11:31 APTT 25.3 Sec. (24.2-36.6) 07/04/17 11:31 POC ABG pH 7.028 (7.35-7.45) L 07/07/17 10:29 POC ABG pCO2 11.9 (35-45) L 07/07/17 10:29 POC ABG pO2 129 (80-105) H 07/07/17 10:29 POC ABG HCO3 3.1 07/07/17 10:29 POC ABG Total CO2 < 5 07/07/17 10:29 POC ABG O2 Sat 97 07/07/17 10:29 POC ABG Base Excess -28 07/07/17 10:29 VBG pH 7.269 (7.320-7.420) L 07/07/17 16:13 FiO2 21 % 07/07/17 10:29 Sodium 134 mmol/L (137-145) L 07/12/17 05:00 Potassium 4.3 mmol/L (3.6-5.0) 07/12/17 05:00 Chloride 98.3 mmol/L (98-107) 07/12/17 05:00 Carbon Dioxide 16 mmol/L (22-30) L D 07/12/17 05:00 Anion Gap 24 mmol/L 07/12/17 05:00 BUN 27 mg/dL (9-20) H 07/12/17 05:00 Creatinine 4.8 mg/dL (0.8-1.5) H 07/12/17 05:00 Estimated GFR 13 ml/min 07/12/17 05:00 BUN/Creatinine Ratio 6 % 07/12/17 05:00 Glucose 259 mg/dL (75-100) H 07/12/17 05:00 POC Glucose 219 (70-105) H 07/13/17 06:36 Osmolality 304 Mosm/kg 07/09/17 03:57 Lactic Acid 3.20 mmol/L (0.7-2.0) H* 07/04/17 14:28 Uric Acid 9.5 mg/dL (3.5-7.6) H 07/09/17 03:57 Calcium 7.4 mg/dL (8.4-10.2) L 07/12/17 05:00 Phosphorus 4.60 mg/dL (2.5-4.5) H D 07/07/17 13:10 Magnesium 1.80 mg/dL (1.7-2.3) 07/07/17 13:10 Total Bilirubin < 0.20 mg/dL (0.1-1.2) 07/04/17 11:25 AST 50 units/L (5-40) H 07/04/17 11:25 ALT 69 units/L (7-56) H 07/04/17 11:25 Alkaline Phosphatase 266 units/L (35-129) H 07/04/17 11:25 Total Creatine Kinase 168 units/L (55-170) 07/08/17 13:21 Total Protein 6.4 g/dL (6.3-8.2) 07/04/17 11:25 Albumin 3.2 g/dL (3.9-5) L 07/04/17 11:25 Albumin/Globulin Ratio 1.0 % 07/04/17 11:25 TSH 1.810 mlU/mL (0.270-4.200) 07/04/17 11:25 Urine Color Yellow (Yellow) 07/09/17 09:28 Urine Turbidity Clear (Clear) 07/09/17 09:28 Urine pH 5.0 (5.0-7.0) 07/09/17 09:28 Ur Specific Pinson 1.010 (1.003-1.030) 07/09/17 09:28 Urine Protein 100 mg/dl mg/dL (Negative) 07/09/17 09:28 Urine Glucose (UA) 150 mg/dL (Negative) 07/09/17 09:28 Urine Ketones Neg mg/dL (Negative) 07/09/17 09:28 Urine Blood Lg (Negative) 07/09/17 09:28 Urine Nitrite Neg (Negative) 07/09/17 09:28 Urine Bilirubin Neg (Negative) 07/09/17 09:28 Urine Urobilinogen < 2.0 mg/dL (<2.0) 07/09/17 09:28 Ur Leukocyte Esterase Mod (Negative) 07/09/17 09:28 Urine WBC (Auto) 14.0 /HPF (0.0-6.0) H 07/09/17 09:28 Urine RBC (Auto) > 182.0 /HPF (0.0-6.0) 07/09/17 09:28 U Epithel Cells (Auto) 1.0 /HPF (0-13.0) 07/09/17 09:28 Urine Bacteria (Auto) 1+ /HPF (Negative) 07/09/17 09:28 Amorphous Crystals Few 07/09/17 09:28 Urine Mucus Few /HPF 07/09/17 09:28 Urine Eosinophils None seen (None Seen) 07/09/17 10:10 Urine Creatinine 55.0 mg/dL (0.1-20.0) H 07/09/17 09:28 Urine Sodium 108 mEq/L 07/10/17 00:00 Fraction Sodium Excret 8.5 07/09/17 09:28 Salicylates < 0.3 mg/dL (2.8-20.0) L 07/04/17 11:25 Urine Opiates Screen Presumptive negative 07/04/17 12:38 Urine Methadone Screen Presumptive negative 07/04/17 12:38 Acetaminophen < 15.0 ug/mL (10.0-30.0) 07/04/17 11:25 Ur Barbiturates Screen Presumptive negative 07/04/17 12:38 Ur Phencyclidine Scrn Presumptive negative 07/04/17 12:38 Ur Amphetamines Screen Presumptive positive 07/04/17 12:38 U Benzodiazepines Scrn Presumptive negative 07/04/17 12:38 Urine Cocaine Screen Presumptive negative 07/04/17 12:38 U Marijuana (THC) Screen Presumptive negative 07/04/17 12:38 Drugs of Abuse Note Disclamer 07/04/17 12:38 Plasma/Serum Alcohol < 0.01 gm% (0-0.07) 07/04/17 11:25 GILLES Screen Negative (Negative) 07/09/17 09:28 Proteinase 3 (PR3) Ab <1.0 AI (<1.0) 07/09/17 09:28 Myeloperoxidase Ab <1.0 AI (<1.0) 07/09/17 09:28 Double Strand DNA Ab <1 IU/mL (<=4) 07/09/17 09:28 Complement C3 66 mg/dL (90-180) L 07/09/17 09:28 Complement C4 15 mg/dL (16-47) L 07/09/17 09:28 Hepatitis A IgM Ab Non-reactive (NonReactive) 07/09/17 10:37 Hep Bs Antigen Non-reactive (Negative) 07/09/17 10:37 Hep B Core IgM Ab Non-reactive (NonReactive) 07/09/17 10:37 Hepatitis C Antibody Reactive (NonReactive) A 07/09/17 10:37 Blood Type A NEGATIVE 07/12/17 12:41 Antibody Screen Negative 07/12/17 12:41 Crossmatch See Detail 07/12/17 12:41
[2017-07-13 09:25] LABS: Chloride 102.2 mmol/L (98-107); Potassium 3.5 mmol/L (3.6-5.0)
[2017-07-13] MEDS: PEPCID PO SCH ×2 (10:17→23:56)
[2017-07-13] MEDS: HEPARIN SUB-Q SCH ×2 (10:18→23:56)
--- NOTE | 2017-07-13 11:01 | Progress Note ---
Subjective Principal diagnosis: DKA, hypoxia Interval history: Patient was seen today for follow-up, on many renal related issues he is currently eating his breakfast had dialysis yesterday Patient currently denies having any symptoms of chest pain pressure shortness of breath Better aware about renal related issues Interdisciplinary notes were reviewed Vitals labs intake and output medications were reviewed from today Allergies: Reviewed Social history: Reviewed Family history: Reviewed Physical examination HEENT: Oral mucosa moist no pharyngeal erythema Neck: Supple no JVD Chest: Clear to auscultation no crackles rales or wheezes Heart: Regular rate and rhythm S1-S2 heard no S3-S4 Abdomen: Soft nontender no renal bruit no CVA tenderness no suprapubic fullness Extremity: Mild edema dry skin no peripheral cyanosis pulses palpable,multiple tattoos Neurological: Alert awake Musculoskeletal: No joint effusion noted Assessment and plan Oliguric acute kidney injury: Patient status post hemodialysis yesterday Needs close monitoring of intake and output Chronic kidney disease underlying noted to have echogenic kidneys Metabolic acidosis in a patient who does have history of diabetic ketoacidosis History of hepatitis C and substance abuse Extensively counseled and educated regarding the renal related issues Reevaluate in the morning Labs were discussed with patient explained and simple [place] does have good understanding off renal related issues, Will continue to follow and make recommendation from renal standpoint Objective - Vital Signs Vital signs: Vital Signs - 12hr 07/12/17 07/13/17 07/13/17 23:36 02:42 02:50 Temperature 97.8 F Pulse Rate 100 H Pulse Rate [ 87 92 H Anterior Bilateral Throughout] Respiratory 22 Rate Respiratory 20 20 Rate [Anterior Bilateral Throughout] Blood Pressure 124/84 Blood Pressure [Right] O2 Sat by Pulse 95 Oximetry 07/13/17 07/13/17 07/13/17 05:47 06:00 06:30 Temperature 98.6 F 98.1 F Pulse Rate 97 H 92 H Pulse Rate [ Anterior Bilateral Throughout] Respiratory 24 22 Rate Respiratory Rate [Anterior Bilateral Throughout] Blood Pressure 124/85 Blood Pressure 132/76 [Right] O2 Sat by Pulse 96 97 Oximetry 07/13/17 07/13/17 07/13/17 08:30 08:31 08:43 Temperature 98 F Pulse Rate 85 Pulse Rate [ 83 Anterior Bilateral Throughout] Respiratory 20 Rate Respiratory 20 Rate [Anterior Bilateral Throughout] Blood Pressure 131/82 Blood Pressure [Right] O2 Sat by Pulse 98 Oximetry 07/13/17 08:53 Temperature Pulse Rate Pulse Rate [ 89 Anterior Bilateral Throughout] Respiratory Rate Respiratory 20 Rate [Anterior Bilateral Throughout] Blood Pressure Blood Pressure [Right] O2 Sat by Pulse Oximetry - Lab 07/13/17 12:30 07/13/17 06:20 Most recent lab results Calcium 7.0 mg/dL (8.4-10.2) L 07/13/17 06:20 Phosphorus 4.60 mg/dL (2.5-4.5) H D 07/07/17 13:10 Magnesium 1.80 mg/dL (1.7-2.3) 07/07/17 13:10 Urine Creatinine 55.0 mg/dL (0.1-20.0) H 07/09/17 09:28 Urine Sodium 108 mEq/L 07/10/17 00:00
[2017-07-13] MEDS: XANAX PO SCH ×2 (11:32→23:56)
[2017-07-13] MEDS: PERCOCET 5/325 PO PRN (11:33)
[2017-07-13 12:46] LABS: Basophils % (Auto) 0.8 % (0.0-1.8); Eosinophils % (Auto) 1.2 % (0.0-4.3); Hematocrit 25.7 % (35.5-45.6); Hemoglobin 8.5 gm/dl (11.8-15.2); Mean Corpuscular HGB Conc 33 % (32-34); Mean Corpuscular Hemoglobin 28 pg (28-32); Mean Corpuscular Volume 85 fl (84-94); Platelet Count 149 K/mm3 (140-440); Red Blood Count 3.03 M/mm3 (3.65-5.03); Red Cell Distribution Width 14.7 % (13.2-15.2); White Blood Count 5.6 K/mm3 (4.5-11.0)
[2017-07-13 23:07] LABS: Albumin 1.9 g/dL (3.8-4.8); Gamma Globulin 0.7 g/dL (0.8-1.7)
[2017-07-14] MEDS: PERCOCET 5/325 PO PRN ×4 (00:07→19:51)
[2017-07-14] MEDS: NOVOLOG SUB-Q SCH ×5 (00:30→18:02)
[2017-07-14] MEDS: LEVEMIR SUB-Q SCH ×3 (00:30→22:46)
[2017-07-14] MEDS: DUONEB *Not for PRN Use IH SCH ×4 (02:17→20:25)
[2017-07-14] MEDS: THERMAZENE 50 GRAM TP SCH ×3 (03:23→22:45)
[2017-07-14 06:50] LABS: Basophils % (Auto) 0.5 % (0.0-1.8); Eosinophils % (Auto) 1.7 % (0.0-4.3); Hematocrit 24.4 % (35.5-45.6); Hemoglobin 7.8 gm/dl (11.8-15.2); Mean Corpuscular HGB Conc 32 % (32-34); Mean Corpuscular Hemoglobin 29 pg (28-32); Mean Corpuscular Volume 89 fl (84-94); Platelet Count 122 K/mm3 (140-440); Red Blood Count 2.74 M/mm3 (3.65-5.03); Red Cell Distribution Width 15.4 % (13.2-15.2); White Blood Count 3.8 K/mm3 (4.5-11.0)
[2017-07-14 07:09] LABS: Calcium 6.8 mg/dL (8.4-10.2); Potassium 4.8 mmol/L (3.6-5.0)
--- NOTE | 2017-07-14 10:41 | Progress Note ---
Subjective Principal diagnosis: DKA, hypoxia Interval history: Patient was seen today for follow-up on multiple renal-related issues Patient currently denies having any complaints of chest pain pressure or shortness of breath Loza catheter has been draining urine Events of 24 hours, interdisciplinary notes were also reviewed Lab results were reviewed Social history: Reviewed Medication: Reviewed Family history: Reviewed Allergies: Reviewed Physical examination General; no acute distress HEENT: Mild pallor no icterus oral mucosa moist Neck: Supple soft no jugular venous distention Chest: Bilateral clear to auscultation anteriorly posteriorly a few faint basilar crackles at the lung bases no wheezes Cardiovascular: S1-S2 heart no S3-S4 Abdomen: Soft nontender no voluntary guarding rigidity rebound no organomegaly no masses no suprapubic fullness no CVA tenderness Extremity: Minimal edema dry skin no tenderness in the Area Derm: Dry skin Assessment and plan Oliguric acute renal failure patient was initiated on renal replacement therapy ultrasonogram was unremarkable other than echogenic kidney in a patient with long-standing history of diabetes and was admitted with diabetic ketoacidosis He currently does have a Loza catheter which has been draining clear urine light color Patient required renal replacement therapy: Patient however is currently nonoliguric He will need to be reevaluated in the morning for dialysis needs History of tattoos, drug use, hepatitis C Adequately counseled and educated about renal-related issues Will need reevaluation in the morning with that he will need dialysis are not We'll continue to follow and make recommendation from renal standpoint Plan of care was discussed with patient from renal perspective All questions were answered, patient does have good understanding of renal- related issues We'll continue to follow and make recommendation from renal standpoint Objective - Vital Signs Vital signs: Vital Signs - 12hr 07/14/17 07/14/17 07/14/17 00:00 00:07 04:00 Temperature 98.0 F 98.1 F Pulse Rate 92 H 94 H Pulse Rate [ Anterior Bilateral Throughout] Respiratory 20 20 22 Rate Respiratory Rate [Anterior Bilateral Throughout] Blood Pressure Blood Pressure 124/78 132/80 [Right] O2 Sat by Pulse 99 Oximetry 07/14/17 07/14/17 07/14/17 05:54 07:29 09:32 Temperature 97.3 F L Pulse Rate 82 Pulse Rate [ 72 Anterior Bilateral Throughout] Respiratory 20 20 Rate Respiratory 20 Rate [Anterior Bilateral Throughout] Blood Pressure 135/95 Blood Pressure [Right] O2 Sat by Pulse 98 Oximetry 07/14/17 09:50 Temperature Pulse Rate Pulse Rate [ 88 Anterior Bilateral Throughout] Respiratory Rate Respiratory 20 Rate [Anterior Bilateral Throughout] Blood Pressure Blood Pressure [Right] O2 Sat by Pulse Oximetry - Lab 07/14/17 06:00 07/14/17 06:00 Most recent lab results Calcium 6.8 mg/dL (8.4-10.2) L 07/14/17 06:00 Phosphorus 4.60 mg/dL (2.5-4.5) H D 07/07/17 13:10 Magnesium 1.80 mg/dL (1.7-2.3) 07/07/17 13:10 Urine Creatinine 55.0 mg/dL (0.1-20.0) H 07/09/17 09:28 Urine Sodium 108 mEq/L 07/10/17 00:00
[2017-07-14] MEDS: PEPCID PO SCH ×2 (11:20→22:45)
[2017-07-14] MEDS: XANAX PO SCH ×2 (11:20→22:45)
[2017-07-14] MEDS: HEPARIN SUB-Q SCH ×2 (11:20→22:46)
--- NOTE | 2017-07-14 13:04 | Progress Note ---
Assessment and Plan Assessment and plan: 42-year-old male with medical history significant for diabetes mellitus type 1, drug abuse admitted to the hospital for altered mental status, DKA, drug overdose, Sepsis with hypotension. Patient is intubated on admission and extubated on 07/06/2017 DKA - Managed according to DKA protocol and resolved Diabetes mellitus with hyperglycemia - Patient is currently on insulin protocol - This morning his blood 646 but didn't give him extra insulin because he has episodes of hypoglycemia. Sepsis - Blood cultures are negative - patient is off antibiotics Acute toxic metabolic encephalopathy due to amphetamine: Unchanged - Improving Acute blood loss anemia - No subsequent bleeding, hemoglobin this morning is 7.8 - We will transfuse if hemoglobin is below 7.0 Metabolic acidosis: - Resolved Acute respiratory failure, extubated 07/06/17 - Resolved ARF, vasomotor nephropathy: - Nephrology is following, continue dialysis Thrombocytopenia - Patient count is 122 DVT prophylaxis - Continue SCDs Disposition - Continue inpatient care. History Interval history: Patient was seen and evaluated this morning, patient's didn't have any complaints. Hospitalist Physical - Physical exam Narrative exam: Not in cardiopulmonary distress. The patient appeared well nourished and normally developed. Vital signs as documented. Head exam is unremarkable. No scleral icterus . Neck is without jugular venous distension, thyromegaly, or carotid bruits. Lungs are clear to auscultation. Cardiac exam reveals regular rate and Rhythm. First and second heart sounds normal. No murmurs, rubs or gallops. Abdominal exam reveals normal bowel sounds, no masses, no organomegaly and no aortic enlargement. Extremities are nonedematous and both femoral and pedal pulses are normal. GRANTS DIRECTOR: Alert and oriented 3. No focal weakness. - Constitutional Vitals: Temp Pulse Resp BP Pulse Ox 97.3 F L 88 20 135/95 98 07/14/17 07:29 07/14/17 09:50 07/14/17 09:50 07/14/17 07:29 07/14/17 07:29 General appearance: Present: no acute distress. Absent: other Results - Labs CBC & Chem 7: 07/14/17 06:00 07/14/17 06:00 Labs: Laboratory Last Values WBC 3.8 K/mm3 (4.5-11.0) L 07/14/17 06:00 RBC 2.74 M/mm3 (3.65-5.03) L 07/14/17 06:00 Hgb 7.8 gm/dl (11.8-15.2) L 07/14/17 06:00 Hct 24.4 % (35.5-45.6) L 07/14/17 06:00 MCV 89 fl (84-94) 07/14/17 06:00 MCH 29 pg (28-32) 07/14/17 06:00 MCHC 32 % (32-34) 07/14/17 06:00 RDW 15.4 % (13.2-15.2) H 07/14/17 06:00 Plt Count 122 K/mm3 (140-440) L 07/14/17 06:00 Lymph % (Auto) 20.0 % (13.4-35.0) 07/14/17 06:00 [place] % (Auto) 8.1 % (0.0-7.3) H 07/14/17 06:00 Eos % (Auto) 1.7 % (0.0-4.3) 07/14/17 06:00 Baso % (Auto) 0.5 % (0.0-1.8) 07/14/17 06:00 Lymph # 0.8 K/mm3 (1.2-5.4) L 07/14/17 06:00 [place] # 0.3 K/mm3 (0.0-0.8) 07/14/17 06:00 Eos # 0.1 K/mm3 (0.0-0.4) 07/14/17 06:00 Baso # 0.0 K/mm3 (0.0-0.1) 07/14/17 06:00 Add Manual Diff Complete 07/04/17 12:45 Total Counted 100 07/04/17 12:45 Seg Neutrophils % 69.7 % (40.0-70.0) 07/14/17 06:00 Seg Neuts % (Manual) 89.0 % (40.0-70.0) H 07/04/17 12:45 Band Neutrophils % 4.0 % 07/04/17 12:45 Lymphocytes % (Manual) 2.0 % (13.4-35.0) L 07/04/17 12:45 Reactive Lymphs % (Man) 0 % 07/04/17 12:45 Monocytes % (Manual) 5.0 % (0.0-7.3) 07/04/17 12:45 Eosinophils % (Manual) 0 % (0.0-4.3) 07/04/17 12:45 Basophils % (Manual) 0 % (0.0-1.8) 07/04/17 12:45 Metamyelocytes % 0 % 07/04/17 12:45 Myelocytes % 0 % 07/04/17 12:45 Promyelocytes % 0 % 07/04/17 12:45 Blast Cells % 0 % 07/04/17 12:45 Nucleated RBC % Not Reportable 07/04/17 12:45 Seg Neutrophils # 2.7 K/mm3 (1.8-7.7) 07/14/17 06:00 Seg Neutrophils # Man 19.0 K/mm3 (1.8-7.7) H 07/04/17 12:45 Band Neutrophils # 0.9 K/mm3 07/04/17 12:45 Lymphocytes # (Manual) 0.4 K/mm3 (1.2-5.4) L 07/04/17 12:45 Abs React Lymphs (Man) 0.0 K/mm3 07/04/17 12:45 Monocytes # (Manual) 1.1 K/mm3 (0.0-0.8) H 07/04/17 12:45 Eosinophils # (Manual) 0.0 K/mm3 (0.0-0.4) 07/04/17 12:45 Basophils # (Manual) 0.0 K/mm3 (0.0-0.1) 07/04/17 12:45 Metamyelocytes # 0.0 K/mm3 07/04/17 12:45 Myelocytes # 0.0 K/mm3 07/04/17 12:45 Promyelocytes # 0.0 K/mm3 07/04/17 12:45 Blast Cells # 0.0 K/mm3 07/04/17 12:45 WBC Morphology Not Reportable 07/04/17 12:45 Hypersegmented Neuts Not Reportable 07/04/17 12:45 Hyposegmented Neuts Not Reportable 07/04/17 12:45 Hypogranular Neuts Not Reportable 07/04/17 12:45 Smudge Cells Not Reportable 07/04/17 12:45 Toxic Granulation Not Reportable 07/04/17 12:45 Toxic Vacuolation Not Reportable 07/04/17 12:45 Dohle Bodies Not Reportable 07/04/17 12:45 Pelger-Huet Anomaly Not Reportable 07/04/17 12:45 Deyanira Rods Not Reportable 07/04/17 12:45 Platelet Estimate Appears normal 07/04/17 12:45 Clumped Platelets Not Reportable 07/04/17 12:45 Plt Clumps, EDTA Not Reportable 07/04/17 12:45 Large Platelets Not Reportable 07/04/17 12:45 Giant Platelets Not Reportable 07/04/17 12:45 Platelet Satelliting Not Reportable 07/04/17 12:45 Plt Morphology Comment Not Reportable 07/04/17 12:45 RBC Morphology Not Reportable 07/04/17 12:45 Dimorphic RBCs Not Reportable 07/04/17 12:45 Polychromasia Not Reportable 07/04/17 12:45 Hypochromasia Not Reportable 07/04/17 12:45 Poikilocytosis Not Reportable 07/04/17 12:45 Anisocytosis 2+ 07/04/17 12:45 Microcytosis Not Reportable 07/04/17 12:45 Macrocytosis 2+ 07/04/17 12:45 Spherocytes Not Reportable 07/04/17 12:45 Pappenheimer Bodies Not Reportable 07/04/17 12:45 Sickle Cells Not Reportable 07/04/17 12:45 Target Cells Not Reportable 07/04/17 12:45 Tear Drop Cells Not Reportable 07/04/17 12:45 Ovalocytes Not Reportable 07/04/17 12:45 Helmet Cells Not Reportable 07/04/17 12:45 Hernandez-[place]und[place] Bodies Not Reportable 07/04/17 12:45 [place] Rings Not Reportable 07/04/17 12:45 [place] Cells Not Reportable 07/04/17 12:45 Bite Cells Not Reportable 07/04/17 12:45 Crenated Cell Not Reportable 07/04/17 12:45 Elliptocytes Not Reportable 07/04/17 12:45 Acanthocytes (Spur) Not Reportable 07/04/17 12:45 Rouleaux Not Reportable 07/04/17 12:45 Hemoglobin C Crystals Not Reportable 07/04/17 12:45 Schistocytes Not Reportable 07/04/17 12:45 Malaria parasites Not Reportable 07/04/17 12:45 Andrei Bodies Not Reportable 07/04/17 12:45 Hem Pathologist Commnt No 07/04/17 12:45 PT 16.3 Sec. (12.2-14.9) H 07/04/17 11:31 INR 1.25 (0.87-1.13) H 07/04/17 11:31 APTT 25.3 Sec. (24.2-36.6) 07/04/17 11:31 POC ABG pH 7.028 (7.35-7.45) L 07/07/17 10:29 POC ABG pCO2 11.9 (35-45) L 07/07/17 10:29 POC ABG pO2 129 (80-105) H 07/07/17 10:29 POC ABG HCO3 3.1 07/07/17 10:29 POC ABG Total CO2 < 5 07/07/17 10:29 POC ABG O2 Sat 97 07/07/17 10:29 POC ABG Base Excess -28 07/07/17 10:29 VBG pH 7.269 (7.320-7.420) L 07/07/17 16:13 FiO2 21 % 07/07/17 10:29 Sodium 133 mmol/L (137-145) L 07/14/17 06:00 Potassium 4.8 mmol/L (3.6-5.0) D 07/14/17 06:00 Chloride 99.0 mmol/L (98-107) 07/14/17 06:00 Carbon Dioxide 19 mmol/L (22-30) L 07/14/17 06:00 Anion Gap 20 mmol/L 07/14/17 06:00 BUN 28 mg/dL (9-20) H 07/14/17 06:00 Creatinine 4.5 mg/dL (0.8-1.5) H 07/14/17 06:00 Estimated GFR 15 ml/min 07/14/17 06:00 BUN/Creatinine Ratio 6 % 07/14/17 06:00 Glucose 646 mg/dL (75-100) H* 07/14/17 06:00 POC Glucose 366 (70-105) H 07/14/17 09:43 Osmolality 304 Mosm/kg 07/09/17 03:57 Lactic Acid 3.20 mmol/L (0.7-2.0) H* 07/04/17 14:28 Uric Acid 9.5 mg/dL (3.5-7.6) H 07/09/17 03:57 Calcium 6.8 mg/dL (8.4-10.2) L 07/14/17 06:00 Phosphorus 4.60 mg/dL (2.5-4.5) H D 07/07/17 13:10 Magnesium 1.80 mg/dL (1.7-2.3) 07/07/17 13:10 Total Bilirubin < 0.20 mg/dL (0.1-1.2) 07/04/17 11:25 AST 50 units/L (5-40) H 07/04/17 11:25 ALT 69 units/L (7-56) H 07/04/17 11:25 Alkaline Phosphatase 266 units/L (35-129) H 07/04/17 11:25 Total Creatine Kinase 168 units/L (55-170) 07/08/17 13:21 Serum Total Protein 4.4 g/dL (6.1-8.1) L 07/10/17 05:04 Total Protein 6.4 g/dL (6.3-8.2) 07/04/17 11:25 Albumin 1.9 g/dL (3.8-4.8) L 07/10/17 05:04 Albumin/Globulin Ratio 1.0 % 07/04/17 11:25 Kotzk-2-Ykaazumpc 0.3 g/dL (0.2-0.3) 07/10/17 05:04 Mzayy-5-Aghjirotk 0.8 g/dL (0.5-0.9) 07/10/17 05:04 Beta Globulins 0.3 g/dL (0.2-0.5) 07/10/17 05:04 Gamma Globulins 0.7 g/dL (0.8-1.7) L 07/10/17 05:04 Abnorm Protein Band 1 see below 07/10/17 05:04 PEP Interpretation see below H 07/10/17 05:04 TSH 1.810 mlU/mL (0.270-4.200) 07/04/17 11:25 Urine Color Yellow (Yellow) 07/09/17 09:28 Urine Turbidity Clear (Clear) 07/09/17 09:28 Urine pH 5.0 (5.0-7.0) 07/09/17 09:28 Ur Specific [place] 1.010 (1.003-1.030) 07/09/17 09:28 Urine Protein 100 mg/dl mg/dL (Negative) 07/09/17 09:28 Urine Glucose (UA) 150 mg/dL (Negative) 07/09/17 09:28 Urine Ketones Neg mg/dL (Negative) 07/09/17 09:28 Urine Blood Lg (Negative) 07/09/17 09:28 Urine Nitrite Neg (Negative) 07/09/17 09:28 Urine Bilirubin Neg (Negative) 07/09/17 09:28 Urine Urobilinogen < 2.0 mg/dL (<2.0) 07/09/17 09:28 Ur Leukocyte Esterase Mod (Negative) 07/09/17 09:28 Urine WBC (Auto) 14.0 /HPF (0.0-6.0) H 07/09/17 09:28 Urine RBC (Auto) > 182.0 /HPF (0.0-6.0) 07/09/17 09:28 U Epithel Cells (Auto) 1.0 /HPF (0-13.0) 07/09/17 09:28 Urine Bacteria (Auto) 1+ /HPF (Negative) 07/09/17 09:28 Amorphous Crystals Few 07/09/17 09:28 Urine Mucus Few /HPF 07/09/17 09:28 Urine Eosinophils None seen (None Seen) 07/09/17 10:10 Urine Creatinine 55.0 mg/dL (0.1-20.0) H 07/09/17 09:28 Urine Sodium 108 mEq/L 07/10/17 00:00 Fraction Sodium Excret 8.5 07/09/17 09:28 Salicylates < 0.3 mg/dL (2.8-20.0) L 07/04/17 11:25 Urine Opiates Screen Presumptive negative 07/04/17 12:38 Urine Methadone Screen Presumptive negative 07/04/17 12:38 Acetaminophen < 15.0 ug/mL (10.0-30.0) 07/04/17 11:25 Ur Barbiturates Screen Presumptive negative 07/04/17 12:38 Ur Phencyclidine Scrn Presumptive negative 07/04/17 12:38 Ur Amphetamines Screen Presumptive positive 07/04/17 12:38 U Benzodiazepines Scrn Presumptive negative 07/04/17 12:38 Urine Cocaine Screen Presumptive negative 07/04/17 12:38 U Marijuana (THC) Screen Presumptive negative 07/04/17 12:38 Drugs of Abuse Note Disclamer 07/04/17 12:38 Plasma/Serum Alcohol < 0.01 gm% (0-0.07) 07/04/17 11:25 GILLES Screen Negative (Negative) 07/09/17 09:28 Proteinase 3 (PR3) Ab <1.0 AI (<1.0) 07/09/17 09:28 Myeloperoxidase Ab <1.0 AI (<1.0) 07/09/17 09:28 Double Strand DNA Ab <1 IU/mL (<=4) 07/09/17 09:28 Complement C3 66 mg/dL (90-180) L 07/09/17 09:28 Complement C4 15 mg/dL (16-47) L 07/09/17 09:28 Hepatitis A IgM Ab Non-reactive (NonReactive) 07/09/17 10:37 Hep Bs Antigen Non-reactive (Negative) 07/09/17 10:37 Hep B Core IgM Ab Non-reactive (NonReactive) 07/09/17 10:37 Hepatitis C Antibody Reactive (NonReactive) A 07/09/17 10:37 Blood Type A NEGATIVE 07/12/17 12:41 Antibody Screen Negative 07/12/17 12:41 Crossmatch See Detail 07/12/17 12:41
[2017-07-15] MEDS: NOVOLOG SUB-Q SCH ×4 (00:15→17:31)
[2017-07-15] MEDS: ATIVAN IV PRN (00:43)
[2017-07-15] MEDS: DUONEB *Not for PRN Use IH SCH ×4 (01:36→21:11)
[2017-07-15 06:02] LABS: Basophils % (Auto) 1.2 % (0.0-1.8); Eosinophils % (Auto) 3.4 % (0.0-4.3); Hematocrit 23.3 % (35.5-45.6); Hemoglobin 7.7 gm/dl (11.8-15.2); Mean Corpuscular HGB Conc 33 % (32-34); Mean Corpuscular Hemoglobin 28 pg (28-32); Mean Corpuscular Volume 85 fl (84-94); Platelet Count 169 K/mm3 (140-440); Red Blood Count 2.74 M/mm3 (3.65-5.03); Red Cell Distribution Width 14.6 % (13.2-15.2); White Blood Count 6.7 K/mm3 (4.5-11.0)
[2017-07-15] MEDS: D50W (25GM) Vial IV PRN ×3 (06:20→09:53)
[2017-07-15 06:24] LABS: Calcium 7.5 mg/dL (8.4-10.2)
[2017-07-15 06:25] LABS: Chloride 106.7 mmol/L (98-107)
--- NOTE | 2017-07-15 09:30 | Progress Note ---
Assessment and Plan - Patient Problems (1) Acute renal failure Current Visit: No Status: Acute Qualifiers: Acute renal failure type: unspecified Qualified Code(s): N17.9 - Acute kidney failure, unspecified Plan to address problem: may be prerenal with ? underlying CKD, noted worsening renal function. Hydration as ordered. Non oliguric. If no improvement-maintain on HD. Severe hypoalbuminemia---consider nutrition support (2) DKA (diabetic ketoacidoses) Current Visit: Yes Status: Acute Qualifiers: Diabetes mellitus type: type 1 Diabetes mellitus complication detail: D (3) Brittle diabetes Current Visit: Yes Status: Acute (4) Anemia Current Visit: Yes Status: Acute Qualifiers: Anemia type: A Iron deficiency anemia type: I Vitamin B12 deficiency anemia type: V Folate deficiency anemia type: F Bone marrow failure anemia type: B Hemolytic anemia type: H Other causes of anemia: O Chronic kidney disease stage: C Plan to address problem: ? cause for drop in Hb-consider PRBC if drops. (5) Malnutrition Current Visit: Yes Status: Acute Qualifiers: Malnutrition type: M Protein-calorie malnutrition severity: P Subjective Date of service: 07/15/17 Principal diagnosis: DKA, hypoxia Interval history: alert, oriented, denies CP or SOB Objective - Vital Signs Vital signs: Vital Signs - 12hr 07/14/17 07/14/17 07/15/17 22:00 22:37 05:00 Temperature 98.2 F Pulse Rate 94 H 89 Pulse Rate [ Anterior Bilateral Throughout] Pulse Rate [ 87 Apical] Pulse Rate [ 78 Right Radial] Respiratory 17 16 Rate Respiratory Rate [Anterior Bilateral Throughout] Respiratory 18 Rate [Back] Blood Pressure 112/81 [Right] O2 Sat by Pulse 96 97 Oximetry 07/15/17 07/15/17 07/15/17 05:31 07:30 07:43 Temperature 98.3 F Pulse Rate 90 Pulse Rate [ 83 86 Anterior Bilateral Throughout] Pulse Rate [ Apical] Pulse Rate [ Right Radial] Respiratory 16 Rate Respiratory 20 20 Rate [Anterior Bilateral Throughout] Respiratory Rate [Back] Blood Pressure 128/84 [Right] O2 Sat by Pulse 97 Oximetry - General Appearance General appearance: chronically ill EENT: mucous membranes dry Neck: no JVD Respiratory: Present: Clear to Ascultation Cardiology: regular Gastrointestinal: normoactive bowel sounds Integumentary: other (multiple tattoos) Neurologic: alert and oriented x3 - Lab 07/15/17 05:32 07/15/17 05:32 Most recent lab results Calcium 7.5 mg/dL (8.4-10.2) L 07/15/17 05:32 Phosphorus 4.60 mg/dL (2.5-4.5) H D 07/07/17 13:10 Magnesium 1.80 mg/dL (1.7-2.3) 07/07/17 13:10 Urine Creatinine 55.0 mg/dL (0.1-20.0) H 07/09/17 09:28 Urine Sodium 108 mEq/L 07/10/17 00:00
[2017-07-15] MEDS: XANAX PO SCH ×2 (09:32→22:20)
[2017-07-15] MEDS: PEPCID PO SCH ×2 (09:32→22:20)
[2017-07-15] MEDS: HEPARIN SUB-Q SCH ×2 (09:33→22:20)
[2017-07-15] MEDS: PERCOCET 5/325 PO PRN ×3 (10:00→22:28)
[2017-07-15] MEDS: THERMAZENE 50 GRAM TP SCH ×2 (11:00→22:30)
[2017-07-15] MEDS ORDERED: NACL 0.9 (PRIMING MACHINE ONLY DIALYSIS) MC ONE (12:20)
--- NOTE | 2017-07-15 13:14 | Progress Note ---
Assessment and Plan Assessment and plan: 42-year-old male with medical history significant for diabetes mellitus type 1, drug abuse admitted to the hospital for altered mental status, DKA, drug overdose, Sepsis with hypotension. Patient is intubated on admission and extubated on 07/06/2017 DKA - Managed according to DKA protocol and resolved Diabetes mellitus with hyperglycemia - Patient is currently on insulin protocol - patient has episode of hypoglycemia, and discontinued his long acting insulin Sepsis - Blood cultures are negative - patient is off antibiotics Acute toxic metabolic encephalopathy due to amphetamine: Unchanged - Improving Acute blood loss anemia - No subsequent bleeding, hemoglobin this morning is 7.7 - We will transfuse if hemoglobin is below 7.0 Metabolic acidosis: - Resolved Acute respiratory failure, extubated 07/06/17 - Resolved ARF, vasomotor nephropathy: - Nephrology is following, continue dialysis - Cr today is 5.2 Thrombocytopenia - Improved currently platelet is 169 Hypoglycemia - D50 was given, has been long-acting insulin DVT prophylaxis - will resume heparin Disposition - Continue inpatient care. History Interval history: Patient was seen and evaluated this morning, patient's didn't have any complaints. Hospitalist Physical - Physical exam Narrative exam: Not in cardiopulmonary distress. The patient appeared well nourished and normally developed. Vital signs as documented. Head exam is unremarkable. No scleral icterus . Neck is without jugular venous distension, thyromegaly, or carotid bruits. Lungs are clear to auscultation. Cardiac exam reveals regular rate and Rhythm. First and second heart sounds normal. No murmurs, rubs or gallops. Abdominal exam reveals normal bowel sounds, no masses, no organomegaly and no aortic enlargement. Extremities are nonedematous and both femoral and pedal pulses are normal. ENGRAVER MACHINE: Alert and oriented 3. No focal weakness. - Constitutional Vitals: Temp Pulse Resp BP Pulse Ox 98.3 F 80 18 151/98 97 07/15/17 11:15 07/15/17 12:00 07/15/17 11:15 07/15/17 12:00 07/15/17 05:31 General appearance: Present: no acute distress. Absent: other Results - Labs CBC & Chem 7: 07/15/17 05:32 07/15/17 05:32 Labs: Laboratory Last Values WBC 6.7 K/mm3 (4.5-11.0) 07/15/17 05:32 RBC 2.74 M/mm3 (3.65-5.03) L 07/15/17 05:32 Hgb 7.7 gm/dl (11.8-15.2) L 07/15/17 05:32 Hct 23.3 % (35.5-45.6) L 07/15/17 05:32 MCV 85 fl (84-94) 07/15/17 05:32 MCH 28 pg (28-32) 07/15/17 05:32 MCHC 33 % (32-34) 07/15/17 05:32 RDW 14.6 % (13.2-15.2) 07/15/17 05:32 Plt Count 169 K/mm3 (140-440) 07/15/17 05:32 Lymph % (Auto) 36.8 % (13.4-35.0) H 07/15/17 05:32 [place] % (Auto) 7.9 % (0.0-7.3) H 07/15/17 05:32 Eos % (Auto) 3.4 % (0.0-4.3) 07/15/17 05:32 Baso % (Auto) 1.2 % (0.0-1.8) 07/15/17 05:32 Lymph # 2.5 K/mm3 (1.2-5.4) 07/15/17 05:32 [place] # 0.5 K/mm3 (0.0-0.8) 07/15/17 05:32 Eos # 0.2 K/mm3 (0.0-0.4) 07/15/17 05:32 Baso # 0.1 K/mm3 (0.0-0.1) 07/15/17 05:32 Add Manual Diff Complete 07/04/17 12:45 Total Counted 100 07/04/17 12:45 Seg Neutrophils % 50.7 % (40.0-70.0) 07/15/17 05:32 Seg Neuts % (Manual) 89.0 % (40.0-70.0) H 07/04/17 12:45 Band Neutrophils % 4.0 % 07/04/17 12:45 Lymphocytes % (Manual) 2.0 % (13.4-35.0) L 07/04/17 12:45 Reactive Lymphs % (Man) 0 % 07/04/17 12:45 Monocytes % (Manual) 5.0 % (0.0-7.3) 07/04/17 12:45 Eosinophils % (Manual) 0 % (0.0-4.3) 07/04/17 12:45 Basophils % (Manual) 0 % (0.0-1.8) 07/04/17 12:45 Metamyelocytes % 0 % 07/04/17 12:45 Myelocytes % 0 % 07/04/17 12:45 Promyelocytes % 0 % 07/04/17 12:45 Blast Cells % 0 % 07/04/17 12:45 Nucleated RBC % Not Reportable 07/04/17 12:45 Seg Neutrophils # 3.4 K/mm3 (1.8-7.7) 07/15/17 05:32 Seg Neutrophils # Man 19.0 K/mm3 (1.8-7.7) H 07/04/17 12:45 Band Neutrophils # 0.9 K/mm3 07/04/17 12:45 Lymphocytes # (Manual) 0.4 K/mm3 (1.2-5.4) L 07/04/17 12:45 Abs React Lymphs (Man) 0.0 K/mm3 07/04/17 12:45 Monocytes # (Manual) 1.1 K/mm3 (0.0-0.8) H 07/04/17 12:45 Eosinophils # (Manual) 0.0 K/mm3 (0.0-0.4) 07/04/17 12:45 Basophils # (Manual) 0.0 K/mm3 (0.0-0.1) 07/04/17 12:45 Metamyelocytes # 0.0 K/mm3 07/04/17 12:45 Myelocytes # 0.0 K/mm3 07/04/17 12:45 Promyelocytes # 0.0 K/mm3 07/04/17 12:45 Blast Cells # 0.0 K/mm3 07/04/17 12:45 WBC Morphology Not Reportable 07/04/17 12:45 Hypersegmented Neuts Not Reportable 07/04/17 12:45 Hyposegmented Neuts Not Reportable 07/04/17 12:45 Hypogranular Neuts Not Reportable 07/04/17 12:45 Smudge Cells Not Reportable 07/04/17 12:45 Toxic Granulation Not Reportable 07/04/17 12:45 Toxic Vacuolation Not Reportable 07/04/17 12:45 Dohle Bodies Not Reportable 07/04/17 12:45 Pelger-Huet Anomaly Not Reportable 07/04/17 12:45 Deyanira Rods Not Reportable 07/04/17 12:45 Platelet Estimate Appears normal 07/04/17 12:45 Clumped Platelets Not Reportable 07/04/17 12:45 Plt Clumps, EDTA Not Reportable 07/04/17 12:45 Large Platelets Not Reportable 07/04/17 12:45 Giant Platelets Not Reportable 07/04/17 12:45 Platelet Satelliting Not Reportable 07/04/17 12:45 Plt Morphology Comment Not Reportable 07/04/17 12:45 RBC Morphology Not Reportable 07/04/17 12:45 Dimorphic RBCs Not Reportable 07/04/17 12:45 Polychromasia Not Reportable 07/04/17 12:45 Hypochromasia Not Reportable 07/04/17 12:45 Poikilocytosis Not Reportable 07/04/17 12:45 Anisocytosis 2+ 07/04/17 12:45 Microcytosis Not Reportable 07/04/17 12:45 Macrocytosis 2+ 07/04/17 12:45 Spherocytes Not Reportable 07/04/17 12:45 Pappenheimer Bodies Not Reportable 07/04/17 12:45 Sickle Cells Not Reportable 07/04/17 12:45 Target Cells Not Reportable 07/04/17 12:45 Tear Drop Cells Not Reportable 07/04/17 12:45 Ovalocytes Not Reportable 07/04/17 12:45 Helmet Cells Not Reportable 07/04/17 12:45 Hernandez-[place] Bodies Not Reportable 07/04/17 12:45 [place] Rings Not Reportable 07/04/17 12:45 [place] Cells Not Reportable 07/04/17 12:45 Bite Cells Not Reportable 07/04/17 12:45 Crenated Cell Not Reportable 07/04/17 12:45 Elliptocytes Not Reportable 07/04/17 12:45 Acanthocytes (Spur) Not Reportable 07/04/17 12:45 Rouleaux Not Reportable 07/04/17 12:45 Hemoglobin C Crystals Not Reportable 07/04/17 12:45 Schistocytes Not Reportable 07/04/17 12:45 Malaria parasites Not Reportable 07/04/17 12:45 Andrei Bodies Not Reportable 07/04/17 12:45 Hem Pathologist Commnt No 07/04/17 12:45 PT 16.3 Sec. (12.2-14.9) H 07/04/17 11:31 INR 1.25 (0.87-1.13) H 07/04/17 11:31 APTT 25.3 Sec. (24.2-36.6) 07/04/17 11:31 POC ABG pH 7.028 (7.35-7.45) L 07/07/17 10:29 POC ABG pCO2 11.9 (35-45) L 07/07/17 10:29 POC ABG pO2 129 (80-105) H 07/07/17 10:29 POC ABG HCO3 3.1 07/07/17 10:29 POC ABG Total CO2 < 5 07/07/17 10:29 POC ABG O2 Sat 97 07/07/17 10:29 POC ABG Base Excess -28 07/07/17 10:29 VBG pH 7.269 (7.320-7.420) L 07/07/17 16:13 FiO2 21 % 07/07/17 10:29 Sodium 141 mmol/L (137-145) D 07/15/17 05:32 Potassium 4.0 mmol/L (3.6-5.0) 07/15/17 05:32 Chloride 106.7 mmol/L (98-107) 07/15/17 05:32 Carbon Dioxide 22 mmol/L (22-30) 07/15/17 05:32 Anion Gap 16 mmol/L 07/15/17 05:32 BUN 29 mg/dL (9-20) H 07/15/17 05:32 Creatinine 5.1 mg/dL (0.8-1.5) H 07/15/17 05:32 Estimated GFR 13 ml/min 07/15/17 05:32 BUN/Creatinine Ratio 6 % 07/15/17 05:32 Glucose 31 mg/dL (75-100) L* 07/15/17 05:32 POC Glucose 94 (70-105) 07/15/17 10:38 Osmolality 304 Mosm/kg 07/09/17 03:57 Lactic Acid 3.20 mmol/L (0.7-2.0) H* 07/04/17 14:28 Uric Acid 9.5 mg/dL (3.5-7.6) H 07/09/17 03:57 Calcium 7.5 mg/dL (8.4-10.2) L 07/15/17 05:32 Phosphorus 4.60 mg/dL (2.5-4.5) H D 07/07/17 13:10 Magnesium 1.80 mg/dL (1.7-2.3) 07/07/17 13:10 Total Bilirubin < 0.20 mg/dL (0.1-1.2) 07/04/17 11:25 AST 50 units/L (5-40) H 07/04/17 11:25 ALT 69 units/L (7-56) H 07/04/17 11:25 Alkaline Phosphatase 266 units/L (35-129) H 07/04/17 11:25 Total Creatine Kinase 168 units/L (55-170) 07/08/17 13:21 Serum Total Protein 4.4 g/dL (6.1-8.1) L 07/10/17 05:04 Total Protein 6.4 g/dL (6.3-8.2) 07/04/17 11:25 Albumin 1.9 g/dL (3.8-4.8) L 07/10/17 05:04 Albumin/Globulin Ratio 1.0 % 07/04/17 11:25 Ahgip-8-Jcmaynyhi 0.3 g/dL (0.2-0.3) 07/10/17 05:04 Exbja-4-Nlesedyrr 0.8 g/dL (0.5-0.9) 07/10/17 05:04 Beta Globulins 0.3 g/dL (0.2-0.5) 07/10/17 05:04 Gamma Globulins 0.7 g/dL (0.8-1.7) L 07/10/17 05:04 Abnorm Protein Band 1 see below 07/10/17 05:04 PEP Interpretation see below H 07/10/17 05:04 TSH 1.810 mlU/mL (0.270-4.200) 07/04/17 11:25 Urine Color Yellow (Yellow) 07/09/17 09:28 Urine Turbidity Clear (Clear) 07/09/17 09:28 Urine pH 5.0 (5.0-7.0) 07/09/17 09:28 Ur Specific [place] 1.010 (1.003-1.030) 07/09/17 09:28 Urine Protein 100 mg/dl mg/dL (Negative) 07/09/17 09:28 Urine Glucose (UA) 150 mg/dL (Negative) 07/09/17 09:28 Urine Ketones Neg mg/dL (Negative) 07/09/17 09:28 Urine Blood Lg (Negative) 07/09/17 09:28 Urine Nitrite Neg (Negative) 07/09/17 09:28 Urine Bilirubin Neg (Negative) 07/09/17 09:28 Urine Urobilinogen < 2.0 mg/dL (<2.0) 07/09/17 09:28 Ur Leukocyte Esterase Mod (Negative) 07/09/17 09:28 Urine WBC (Auto) 14.0 /HPF (0.0-6.0) H 07/09/17 09:28 Urine RBC (Auto) > 182.0 /HPF (0.0-6.0) 07/09/17 09:28 U Epithel Cells (Auto) 1.0 /HPF (0-13.0) 07/09/17 09:28 Urine Bacteria (Auto) 1+ /HPF (Negative) 07/09/17 09:28 Amorphous Crystals Few 07/09/17 09:28 Urine Mucus Few /HPF 07/09/17 09:28 Urine Eosinophils None seen (None Seen) 07/09/17 10:10 Urine Creatinine 55.0 mg/dL (0.1-20.0) H 07/09/17 09:28 Urine Sodium 108 mEq/L 07/10/17 00:00 Fraction Sodium Excret 8.5 07/09/17 09:28 Salicylates < 0.3 mg/dL (2.8-20.0) L 07/04/17 11:25 Urine Opiates Screen Presumptive negative 07/04/17 12:38 Urine Methadone Screen Presumptive negative 07/04/17 12:38 Acetaminophen < 15.0 ug/mL (10.0-30.0) 07/04/17 11:25 Ur Barbiturates Screen Presumptive negative 07/04/17 12:38 Ur Phencyclidine Scrn Presumptive negative 07/04/17 12:38 Ur Amphetamines Screen Presumptive positive 07/04/17 12:38 U Benzodiazepines Scrn Presumptive negative 07/04/17 12:38 Urine Cocaine Screen Presumptive negative 07/04/17 12:38 U Marijuana (THC) Screen Presumptive negative 07/04/17 12:38 Drugs of Abuse Note Disclamer 07/04/17 12:38 Plasma/Serum Alcohol < 0.01 gm% (0-0.07) 07/04/17 11:25 GILLES Screen Negative (Negative) 07/09/17 09:28 Proteinase 3 (PR3) Ab <1.0 AI (<1.0) 07/09/17 09:28 Myeloperoxidase Ab <1.0 AI (<1.0) 07/09/17 09:28 Double Strand DNA Ab <1 IU/mL (<=4) 07/09/17 09:28 Complement C3 66 mg/dL (90-180) L 07/09/17 09:28 Complement C4 15 mg/dL (16-47) L 07/09/17 09:28 Hepatitis A IgM Ab Non-reactive (NonReactive) 07/09/17 10:37 Hep Bs Antigen Non-reactive (Negative) 07/09/17 10:37 Hep B Core IgM Ab Non-reactive (NonReactive) 07/09/17 10:37 Hepatitis C Antibody Reactive (NonReactive) A 07/09/17 10:37 Blood Type A NEGATIVE 07/12/17 12:41 Antibody Screen Negative 07/12/17 12:41 Crossmatch See Detail 07/12/17 12:41 hypoglycemia
[2017-07-15] MEDS: HEPARIN IV PRN (17:16)
[2017-07-16] MEDS: NOVOLOG SUB-Q SCH ×4 (00:05→17:43)
[2017-07-16] MEDS: DUONEB *Not for PRN Use IH SCH ×2 (03:36→09:47)
[2017-07-16] MEDS: PERCOCET 5/325 PO PRN ×3 (06:00→17:44)
[2017-07-16 06:41] LABS: Basophils % (Auto) 1.2 % (0.0-1.8); Eosinophils % (Auto) 3.1 % (0.0-4.3); Hematocrit 21.1 % (35.5-45.6); Hemoglobin 7.1 gm/dl (11.8-15.2); Mean Corpuscular HGB Conc 34 % (32-34); Mean Corpuscular Hemoglobin 29 pg (28-32); Mean Corpuscular Volume 86 fl (84-94); Platelet Count 154 K/mm3 (140-440); Red Blood Count 2.45 M/mm3 (3.65-5.03); Red Cell Distribution Width 14.6 % (13.2-15.2); White Blood Count 4.4 K/mm3 (4.5-11.0)
[2017-07-16 06:53] LABS: Calcium 7.2 mg/dL (8.4-10.2); Chloride 103.5 mmol/L (98-107); Potassium 4.5 mmol/L (3.6-5.0)
--- NOTE | 2017-07-16 07:38 | Progress Note ---
Assessment and Plan Assessment and plan: 42-year-old male with medical history significant for diabetes mellitus type 1, drug abuse admitted to the hospital for altered mental status, DKA, drug overdose, Sepsis with hypotension. Patient was intubated on admission and extubated on 07/06/2017 DKA - Managed according to DKA protocol and resolved Diabetes mellitus with hyperglycemia - Patient is currently on insulin protocol - patient has episode of hypoglycemia, and discontinued his long acting insulin Hypoglycemia - D50 was given, has been long-acting insulin, will monitor Sepsis - Resolved - Blood cultures are negative - patient is off antibiotics Acute toxic metabolic encephalopathy due to amphetamine - Resolved Acute blood loss anemia - No subsequent bleeding, hemoglobin this morning is 7.1 - We will transfuse if hemoglobin is below 7.0 Metabolic acidosis: - Resolved Acute respiratory failure, extubated 07/06/17 - Resolved ARF, vasomotor nephropathy: - Nephrology is following, continue dialysis - Cr today is 3.3 Thrombocytopenia - Improved currently platelet is 149 DVT prophylaxis - will resume heparin Disposition - Per nephrology History Interval history: Patient was seen and evaluated this morning, patient's didn't have any complaints. Hospitalist Physical - Physical exam Narrative exam: Not in cardiopulmonary distress. The patient appeared well nourished and normally developed. Vital signs as documented. Head exam is unremarkable. No scleral icterus . Neck is without jugular venous distension, thyromegaly, or carotid bruits. Lungs are clear to auscultation. Cardiac exam reveals regular rate and Rhythm. First and second heart sounds normal. No murmurs, rubs or gallops. Abdominal exam reveals normal bowel sounds, no masses, no organomegaly and no aortic enlargement. Extremities are nonedematous and both femoral and pedal pulses are normal. CVOR NURSE: Alert and oriented 3. No focal weakness. - Constitutional Vitals: Temp Pulse Resp BP Pulse Ox 98.4 F 82 17 120/81 99 07/16/17 05:00 07/16/17 05:00 07/16/17 06:00 07/16/17 05:00 07/16/17 05:00 General appearance: Present: no acute distress. Absent: other Results - Labs CBC & Chem 7: 07/16/17 05:24 07/16/17 05:24 Labs: Laboratory Last Values WBC 4.4 K/mm3 (4.5-11.0) L 07/16/17 05:24 RBC 2.45 M/mm3 (3.65-5.03) L 07/16/17 05:24 Hgb 7.1 gm/dl (11.8-15.2) L 07/16/17 05:24 Hct 21.1 % (35.5-45.6) L 07/16/17 05:24 MCV 86 fl (84-94) 07/16/17 05:24 MCH 29 pg (28-32) 07/16/17 05:24 MCHC 34 % (32-34) 07/16/17 05:24 RDW 14.6 % (13.2-15.2) 07/16/17 05:24 Plt Count 154 K/mm3 (140-440) 07/16/17 05:24 Lymph % (Auto) 30.3 % (13.4-35.0) 07/16/17 05:24 [place] % (Auto) 7.1 % (0.0-7.3) 07/16/17 05:24 Eos % (Auto) 3.1 % (0.0-4.3) 07/16/17 05:24 Baso % (Auto) 1.2 % (0.0-1.8) 07/16/17 05:24 Lymph # 1.3 K/mm3 (1.2-5.4) 07/16/17 05:24 [place] # 0.3 K/mm3 (0.0-0.8) 07/16/17 05:24 Eos # 0.1 K/mm3 (0.0-0.4) 07/16/17 05:24 Baso # 0.1 K/mm3 (0.0-0.1) 07/16/17 05:24 Add Manual Diff Complete 07/04/17 12:45 Total Counted 100 07/04/17 12:45 Seg Neutrophils % 58.3 % (40.0-70.0) 07/16/17 05:24 Seg Neuts % (Manual) 89.0 % (40.0-70.0) H 07/04/17 12:45 Band Neutrophils % 4.0 % 07/04/17 12:45 Lymphocytes % (Manual) 2.0 % (13.4-35.0) L 07/04/17 12:45 Reactive Lymphs % (Man) 0 % 07/04/17 12:45 Monocytes % (Manual) 5.0 % (0.0-7.3) 07/04/17 12:45 Eosinophils % (Manual) 0 % (0.0-4.3) 07/04/17 12:45 Basophils % (Manual) 0 % (0.0-1.8) 07/04/17 12:45 Metamyelocytes % 0 % 07/04/17 12:45 Myelocytes % 0 % 07/04/17 12:45 Promyelocytes % 0 % 07/04/17 12:45 Blast Cells % 0 % 07/04/17 12:45 Nucleated RBC % Not Reportable 07/04/17 12:45 Seg Neutrophils # 2.5 K/mm3 (1.8-7.7) 07/16/17 05:24 Seg Neutrophils # Man 19.0 K/mm3 (1.8-7.7) H 07/04/17 12:45 Band Neutrophils # 0.9 K/mm3 07/04/17 12:45 Lymphocytes # (Manual) 0.4 K/mm3 (1.2-5.4) L 07/04/17 12:45 Abs React Lymphs (Man) 0.0 K/mm3 07/04/17 12:45 Monocytes # (Manual) 1.1 K/mm3 (0.0-0.8) H 07/04/17 12:45 Eosinophils # (Manual) 0.0 K/mm3 (0.0-0.4) 07/04/17 12:45 Basophils # (Manual) 0.0 K/mm3 (0.0-0.1) 07/04/17 12:45 Metamyelocytes # 0.0 K/mm3 07/04/17 12:45 Myelocytes # 0.0 K/mm3 07/04/17 12:45 Promyelocytes # 0.0 K/mm3 07/04/17 12:45 Blast Cells # 0.0 K/mm3 07/04/17 12:45 WBC Morphology Not Reportable 07/04/17 12:45 Hypersegmented Neuts Not Reportable 07/04/17 12:45 Hyposegmented Neuts Not Reportable 07/04/17 12:45 Hypogranular Neuts Not Reportable 07/04/17 12:45 Smudge Cells Not Reportable 07/04/17 12:45 Toxic Granulation Not Reportable 07/04/17 12:45 Toxic Vacuolation Not Reportable 07/04/17 12:45 Dohle Bodies Not Reportable 07/04/17 12:45 Pelger-Huet Anomaly Not Reportable 07/04/17 12:45 Deyanira Rods Not Reportable 07/04/17 12:45 Platelet Estimate Appears normal 07/04/17 12:45 Clumped Platelets Not Reportable 07/04/17 12:45 Plt Clumps, EDTA Not Reportable 07/04/17 12:45 Large Platelets Not Reportable 07/04/17 12:45 Giant Platelets Not Reportable 07/04/17 12:45 Platelet Satelliting Not Reportable 07/04/17 12:45 Plt Morphology Comment Not Reportable 07/04/17 12:45 RBC Morphology Not Reportable 07/04/17 12:45 Dimorphic RBCs Not Reportable 07/04/17 12:45 Polychromasia Not Reportable 07/04/17 12:45 Hypochromasia Not Reportable 07/04/17 12:45 Poikilocytosis Not Reportable 07/04/17 12:45 Anisocytosis 2+ 07/04/17 12:45 Microcytosis Not Reportable 07/04/17 12:45 Macrocytosis 2+ 07/04/17 12:45 Spherocytes Not Reportable 07/04/17 12:45 Pappenheimer Bodies Not Reportable 07/04/17 12:45 Sickle Cells Not Reportable 07/04/17 12:45 Target Cells Not Reportable 07/04/17 12:45 Tear Drop Cells Not Reportable 07/04/17 12:45 Ovalocytes Not Reportable 07/04/17 12:45 Helmet Cells Not Reportable 07/04/17 12:45 [place] Bodies Not Reportable 07/04/17 12:45 [place] Rings Not Reportable 07/04/17 12:45 Shawn Cells Not Reportable 07/04/17 12:45 Bite Cells Not Reportable 07/04/17 12:45 Crenated Cell Not Reportable 07/04/17 12:45 Elliptocytes Not Reportable 07/04/17 12:45 Acanthocytes (Spur) Not Reportable 07/04/17 12:45 Rouleaux Not Reportable 07/04/17 12:45 Hemoglobin C Crystals Not Reportable 07/04/17 12:45 Schistocytes Not Reportable 07/04/17 12:45 Malaria parasites Not Reportable 07/04/17 12:45 Andrei Bodies Not Reportable 07/04/17 12:45 Hem Pathologist Commnt No 07/04/17 12:45 PT 16.3 Sec. (12.2-14.9) H 07/04/17 11:31 INR 1.25 (0.87-1.13) H 07/04/17 11:31 APTT 25.3 Sec. (24.2-36.6) 07/04/17 11:31 POC ABG pH 7.028 (7.35-7.45) L 07/07/17 10:29 POC ABG pCO2 11.9 (35-45) L 07/07/17 10:29 POC ABG pO2 129 (80-105) H 07/07/17 10:29 POC ABG HCO3 3.1 07/07/17 10:29 POC ABG Total CO2 < 5 07/07/17 10:29 POC ABG O2 Sat 97 07/07/17 10:29 POC ABG Base Excess -28 07/07/17 10:29 VBG pH 7.269 (7.320-7.420) L 07/07/17 16:13 FiO2 21 % 07/07/17 10:29 Sodium 137 mmol/L (137-145) 07/16/17 05:24 Potassium 4.5 mmol/L (3.6-5.0) 07/16/17 05:24 Chloride 103.5 mmol/L (98-107) 07/16/17 05:24 Carbon Dioxide 24 mmol/L (22-30) 07/16/17 05:24 Anion Gap 14 mmol/L 07/16/17 05:24 BUN 20 mg/dL (9-20) 07/16/17 05:24 Creatinine 3.3 mg/dL (0.8-1.5) H 07/16/17 05:24 Estimated GFR 21 ml/min 07/16/17 05:24 BUN/Creatinine Ratio 6 % 07/16/17 05:24 Glucose 149 mg/dL (75-100) H 07/16/17 05:24 POC Glucose 162 (70-105) H 07/16/17 06:22 Osmolality 304 Mosm/kg 07/09/17 03:57 Lactic Acid 3.20 mmol/L (0.7-2.0) H* 07/04/17 14:28 Uric Acid 9.5 mg/dL (3.5-7.6) H 07/09/17 03:57 Calcium 7.2 mg/dL (8.4-10.2) L 07/16/17 05:24 Phosphorus 4.60 mg/dL (2.5-4.5) H D 07/07/17 13:10 Magnesium 1.80 mg/dL (1.7-2.3) 07/07/17 13:10 Total Bilirubin < 0.20 mg/dL (0.1-1.2) 07/04/17 11:25 AST 50 units/L (5-40) H 07/04/17 11:25 ALT 69 units/L (7-56) H 07/04/17 11:25 Alkaline Phosphatase 266 units/L (35-129) H 07/04/17 11:25 Total Creatine Kinase 168 units/L (55-170) 07/08/17 13:21 Serum Total Protein 4.4 g/dL (6.1-8.1) L 07/10/17 05:04 Total Protein 6.4 g/dL (6.3-8.2) 07/04/17 11:25 Albumin 1.9 g/dL (3.8-4.8) L 07/10/17 05:04 Albumin/Globulin Ratio 1.0 % 07/04/17 11:25 Wkrer-4-Xnurgqoxn 0.3 g/dL (0.2-0.3) 07/10/17 05:04 Voldg-6-Dypsbpkra 0.8 g/dL (0.5-0.9) 07/10/17 05:04 Beta Globulins 0.3 g/dL (0.2-0.5) 07/10/17 05:04 Gamma Globulins 0.7 g/dL (0.8-1.7) L 07/10/17 05:04 Abnorm Protein Band 1 see below 07/10/17 05:04 PEP Interpretation see below H 07/10/17 05:04 TSH 1.810 mlU/mL (0.270-4.200) 07/04/17 11:25 Urine Color Yellow (Yellow) 07/09/17 09:28 Urine Turbidity Clear (Clear) 07/09/17 09:28 Urine pH 5.0 (5.0-7.0) 07/09/17 09:28 Ur Specific [place] 1.010 (1.003-1.030) 07/09/17 09:28 Urine Protein 100 mg/dl mg/dL (Negative) 07/09/17 09:28 Urine Glucose (UA) 150 mg/dL (Negative) 07/09/17 09:28 Urine Ketones Neg mg/dL (Negative) 07/09/17 09:28 Urine Blood Lg (Negative) 07/09/17 09:28 Urine Nitrite Neg (Negative) 07/09/17 09:28 Urine Bilirubin Neg (Negative) 07/09/17 09:28 Urine Urobilinogen < 2.0 mg/dL (<2.0) 07/09/17 09:28 Ur Leukocyte Esterase Mod (Negative) 07/09/17 09:28 Urine WBC (Auto) 14.0 /HPF (0.0-6.0) H 07/09/17 09:28 Urine RBC (Auto) > 182.0 /HPF (0.0-6.0) 07/09/17 09:28 U Epithel Cells (Auto) 1.0 /HPF (0-13.0) 07/09/17 09:28 Urine Bacteria (Auto) 1+ /HPF (Negative) 07/09/17 09:28 Amorphous Crystals Few 07/09/17 09:28 Urine Mucus Few /HPF 07/09/17 09:28 Urine Eosinophils None seen (None Seen) 07/09/17 10:10 Urine Creatinine 55.0 mg/dL (0.1-20.0) H 07/09/17 09:28 Urine Sodium 108 mEq/L 07/10/17 00:00 Fraction Sodium Excret 8.5 07/09/17 09:28 Salicylates < 0.3 mg/dL (2.8-20.0) L 07/04/17 11:25 Urine Opiates Screen Presumptive negative 07/04/17 12:38 Urine Methadone Screen Presumptive negative 07/04/17 12:38 Acetaminophen < 15.0 ug/mL (10.0-30.0) 07/04/17 11:25 Ur Barbiturates Screen Presumptive negative 07/04/17 12:38 Ur Phencyclidine Scrn Presumptive negative 07/04/17 12:38 Ur Amphetamines Screen Presumptive positive 07/04/17 12:38 U Benzodiazepines Scrn Presumptive negative 07/04/17 12:38 Urine Cocaine Screen Presumptive negative 07/04/17 12:38 U Marijuana (THC) Screen Presumptive negative 07/04/17 12:38 Drugs of Abuse Note Disclamer 07/04/17 12:38 Plasma/Serum Alcohol < 0.01 gm% (0-0.07) 07/04/17 11:25 GILLES Screen Negative (Negative) 07/09/17 09:28 Proteinase 3 (PR3) Ab <1.0 AI (<1.0) 07/09/17 09:28 Myeloperoxidase Ab <1.0 AI (<1.0) 07/09/17 09:28 Double Strand DNA Ab <1 IU/mL (<=4) 07/09/17 09:28 Complement C3 66 mg/dL (90-180) L 07/09/17 09:28 Complement C4 15 mg/dL (16-47) L 07/09/17 09:28 Hepatitis A IgM Ab Non-reactive (NonReactive) 07/09/17 10:37 Hep Bs Antigen Non-reactive (Negative) 07/09/17 10:37 Hep B Core IgM Ab Non-reactive (NonReactive) 07/09/17 10:37 Hepatitis C Antibody Reactive (NonReactive) A 07/09/17 10:37 Blood Type A NEGATIVE 07/12/17 12:41 Antibody Screen Negative 07/12/17 12:41 Crossmatch See Detail 07/12/17 12:41
--- NOTE | 2017-07-16 09:23 | Progress Note ---
Assessment and Plan - Patient Problems (1) Acute renal failure Current Visit: No Status: Acute Qualifiers: Acute renal failure type: unspecified Qualified Code(s): N17.9 - Acute kidney failure, unspecified Plan to address problem: may be prerenal with ? underlying CKD, Had HD yesterday. Check labs. Pt says that he is urinating little more today. Severe hypoalbuminemia---consider nutrition support (2) DKA (diabetic ketoacidoses) Current Visit: Yes Status: Resolved Qualifiers: Diabetes mellitus type: type 1 Diabetes mellitus complication detail: D (3) Brittle diabetes Current Visit: Yes Status: Acute (4) Anemia Current Visit: Yes Status: Acute Qualifiers: Anemia type: A Iron deficiency anemia type: I Vitamin B12 deficiency anemia type: V Folate deficiency anemia type: F Bone marrow failure anemia type: B Hemolytic anemia type: H Other causes of anemia: O Chronic kidney disease stage: C Plan to address problem: ? cause for drop in Hb--check work up, PRBC per hospitalist (5) Malnutrition Current Visit: Yes Status: Acute Qualifiers: Malnutrition type: M Protein-calorie malnutrition severity: P Subjective Date of service: 07/16/17 Principal diagnosis: DKA, hypoxia Interval history: alert, oriented, denies CP or SOB Objective - Vital Signs Vital signs: Vital Signs - 12hr 07/15/17 07/15/17 07/15/17 22:00 22:28 23:28 Temperature Pulse Rate Respiratory 20 18 Rate Respiratory 20 Rate [Back] Blood Pressure Blood Pressure [Right] O2 Sat by Pulse 97 Oximetry 07/16/17 07/16/17 07/16/17 00:45 05:00 06:00 Temperature 98.3 F 98.4 F Pulse Rate 98 H 82 Respiratory 18 16 17 Rate Respiratory Rate [Back] Blood Pressure Blood Pressure 109/70 120/81 [Right] O2 Sat by Pulse 95 99 Oximetry 07/16/17 07/16/17 07:00 08:23 Temperature 98.4 F Pulse Rate 80 Respiratory 18 20 Rate Respiratory Rate [Back] Blood Pressure 132/89 Blood Pressure [Right] O2 Sat by Pulse 99 Oximetry - General Appearance General appearance: chronically ill EENT: mucous membranes moist Neck: no JVD Respiratory: Present: Clear to Ascultation Cardiology: regular, systolic murmur Gastrointestinal: normoactive bowel sounds Neurologic: alert and oriented x3 Musculoskeletal: other (multiple tattoos) Psychiatric: mood/affect appropriate, cooperative - Lab 07/16/17 05:24 07/16/17 05:24 Most recent lab results Calcium 7.2 mg/dL (8.4-10.2) L 07/16/17 05:24 Phosphorus 4.60 mg/dL (2.5-4.5) H D 07/07/17 13:10 Magnesium 1.80 mg/dL (1.7-2.3) 07/07/17 13:10 Urine Creatinine 55.0 mg/dL (0.1-20.0) H 07/09/17 09:28 Urine Sodium 108 mEq/L 07/10/17 00:00
[2017-07-16] MEDS: HEPARIN SUB-Q SCH ×2 (11:28→21:51)
[2017-07-16] MEDS: XANAX PO SCH ×2 (11:30→21:50)
[2017-07-16] MEDS: PEPCID PO SCH ×2 (11:30→21:51)
[2017-07-17] MEDS: NOVOLOG SUB-Q SCH ×5 (00:32→17:25)
[2017-07-17] MEDS: PERCOCET 5/325 PO PRN ×4 (00:32→22:13)
[2017-07-17 03:53] LABS: Calcium 7.3 mg/dL (8.4-10.2); Chloride 101.6 mmol/L (98-107); Hematocrit 23.9 % (35.5-45.6); Hemoglobin 7.9 gm/dl (11.8-15.2); Mean Corpuscular HGB Conc 33 % (32-34); Mean Corpuscular Hemoglobin 28 pg (28-32); Mean Corpuscular Volume 85 fl (84-94); Platelet Count 190 K/mm3 (140-440); Red Cell Distribution Width 14.7 % (13.2-15.2); White Blood Count 5.2 K/mm3 (4.5-11.0)
[2017-07-17 04:44] LABS: Basophils % (Manual) 0 % (0.0-1.8); Blastocytes % (Manual) 0 %
[2017-07-17 04:45] LABS: Diff Status Complete; Platelet Estimate Consistent w Auto; Stomatocytes Few
[2017-07-17 05:11] LABS: Potassium 5.5 mmol/L (3.6-5.0)
--- NOTE | 2017-07-17 09:12 | Progress Note ---
Assessment and Plan - Patient Problems (1) Acute renal failure Current Visit: No Status: Acute Qualifiers: Acute renal failure type: unspecified Qualified Code(s): N17.9 - Acute kidney failure, unspecified Plan to address problem: may be prerenal with ATN ? underlying CKD, no renal recovery yet, K-5.5, noted rise in BUN,Scr-HD today. Nutrition support. [id number] per protocol (2) DKA (diabetic ketoacidoses) Current Visit: Yes Status: Resolved Qualifiers: Diabetes mellitus type: type 1 Diabetes mellitus complication detail: D (3) Brittle diabetes Current Visit: Yes Status: Acute (4) Anemia Current Visit: Yes Status: Acute Qualifiers: Anemia type: A Iron deficiency anemia type: I Vitamin B12 deficiency anemia type: V Folate deficiency anemia type: F Bone marrow failure anemia type: B Hemolytic anemia type: H Other causes of anemia: O Chronic kidney disease stage: C (5) Malnutrition Current Visit: Yes Status: Acute Qualifiers: Malnutrition type: M Protein-calorie malnutrition severity: P Subjective Date of service: 07/17/17 Principal diagnosis: DKA, hypoxia Interval history: alert, oriented, denies CP or SOB. Urinating very little Objective - Vital Signs Vital signs: Vital Signs - 12hr 07/17/17 07/17/17 07/17/17 01:09 01:13 07:26 Temperature 98.1 F 98.0 F Pulse Rate 80 78 Respiratory 18 16 16 Rate Blood Pressure 117/71 111/75 O2 Sat by Pulse 99 95 Oximetry - General Appearance General appearance: chronically ill EENT: mucous membranes moist Neck: no JVD Respiratory: Present: Clear to Ascultation Cardiology: regular Gastrointestinal: normoactive bowel sounds Neurologic: alert and oriented x3 Psychiatric: mood/affect appropriate, cooperative - Lab 07/17/17 03:12 07/17/17 03:12 Most recent lab results Calcium 7.3 mg/dL (8.4-10.2) L 07/17/17 03:12 Phosphorus 4.60 mg/dL (2.5-4.5) H D 07/07/17 13:10 Magnesium 1.80 mg/dL (1.7-2.3) 07/07/17 13:10 Urine Creatinine 55.0 mg/dL (0.1-20.0) H 07/09/17 09:28 Urine Sodium 108 mEq/L 07/10/17 00:00
[2017-07-17] MEDS: PEPCID PO SCH ×2 (09:53→22:03)
[2017-07-17] MEDS: XANAX PO SCH ×2 (09:53→22:03)
[2017-07-17] MEDS: THERMAZENE 50 GRAM TP SCH ×4 (09:53→22:02)
[2017-07-17] MEDS: HEPARIN SUB-Q SCH ×2 (09:54→22:03)
[2017-07-17] MEDS ORDERED: NACL 0.9 (PRIMING MACHINE ONLY DIALYSIS) MC ONE (11:22)
--- NOTE | 2017-07-17 11:43 | Progress Note ---
Assessment and Plan Assessment and plan: 42-year-old male with medical history significant for diabetes mellitus type 1, drug abuse admitted to the hospital for altered mental status, DKA, drug overdose, Sepsis with hypotension. Patient was intubated on admission and extubated on 07/06/2017 DKA - Managed according to DKA protocol and resolved Diabetes mellitus with hyperglycemia - Patient is currently on insulin protocol - patient has episode of hypoglycemia, and discontinued his long acting insulin Hypoglycemia - D50 was given, has been long-acting insulin, will monitor Sepsis - Resolved - Blood cultures are negative - patient is off antibiotics Acute toxic metabolic encephalopathy due to amphetamine - Resolved Acute blood loss anemia - No subsequent bleeding, hemoglobin this morning is 7.9 - We will transfuse if hemoglobin is below 7.0 Metabolic acidosis: - Resolved Acute respiratory failure, extubated 07/06/17 - Resolved ARF, vasomotor nephropathy: - Nephrology is following, continue dialysis - Cr today is 3.8 Thrombocytopenia - Improved currently platelet is 142 DVT prophylaxis - On heparin Disposition - Per nephrology History Interval history: Patient was seen and evaluated this morning, patient asking for more pain medications. Hospitalist Physical - Physical exam Narrative exam: Not in cardiopulmonary distress. The patient appeared well nourished and normally developed. Vital signs as documented. Head exam is unremarkable. No scleral icterus . Neck is without jugular venous distension, thyromegaly, or carotid bruits. Lungs are clear to auscultation. Cardiac exam reveals regular rate and Rhythm. First and second heart sounds normal. No murmurs, rubs or gallops. Abdominal exam reveals normal bowel sounds, no masses, no organomegaly and no aortic enlargement. Extremities are nonedematous and both femoral and pedal pulses are normal. CASH POSTING REPRESENTATIVE: Alert and oriented 3. No focal weakness. - Constitutional Vitals: Temp Pulse Resp BP Pulse Ox 98.4 F 78 18 120/79 95 07/17/17 10:10 07/17/17 11:00 07/17/17 10:10 07/17/17 11:00 07/17/17 07:26 General appearance: Present: no acute distress. Absent: other Results - Labs CBC & Chem 7: 07/17/17 03:12 07/17/17 03:12 Labs: Laboratory Last Values WBC 5.2 K/mm3 (4.5-11.0) 07/17/17 03:12 RBC 2.80 M/mm3 (3.65-5.03) L 07/17/17 03:12 Hgb 7.9 gm/dl (11.8-15.2) L 07/17/17 03:12 Hct 23.9 % (35.5-45.6) L 07/17/17 03:12 MCV 85 fl (84-94) 07/17/17 03:12 MCH 28 pg (28-32) 07/17/17 03:12 MCHC 33 % (32-34) 07/17/17 03:12 RDW 14.7 % (13.2-15.2) 07/17/17 03:12 Plt Count 190 K/mm3 (140-440) 07/17/17 03:12 Lymph % (Auto) 30.3 % (13.4-35.0) 07/16/17 05:24 [place] % (Auto) 7.1 % (0.0-7.3) 07/16/17 05:24 Eos % (Auto) 3.1 % (0.0-4.3) 07/16/17 05:24 Baso % (Auto) Feed Crusher Operator 07/17/17 03:12 Lymph # 1.3 K/mm3 (1.2-5.4) 07/16/17 05:24 Drew # 0.3 K/mm3 (0.0-0.8) 07/16/17 05:24 Eos # 0.1 K/mm3 (0.0-0.4) 07/16/17 05:24 Baso # 0.1 K/mm3 (0.0-0.1) 07/16/17 05:24 Add Manual Diff Complete 07/17/17 03:12 Total Counted 100 07/17/17 03:12 Seg Neutrophils % 58.3 % (40.0-70.0) 07/16/17 05:24 Seg Neuts % (Manual) 69.0 % (40.0-70.0) 07/17/17 03:12 Band Neutrophils % 1.0 % 07/17/17 03:12 Lymphocytes % (Manual) 18.0 % (13.4-35.0) 07/17/17 03:12 Reactive Lymphs % (Man) 0 % 07/17/17 03:12 Monocytes % (Manual) 7.0 % (0.0-7.3) 07/17/17 03:12 Eosinophils % (Manual) 5.0 % (0.0-4.3) H 07/17/17 03:12 Basophils % (Manual) 0 % (0.0-1.8) 07/17/17 03:12 Metamyelocytes % 0 % 07/17/17 03:12 Myelocytes % 0 % 07/17/17 03:12 Promyelocytes % 0 % 07/17/17 03:12 Blast Cells % 0 % 07/17/17 03:12 Nucleated RBC % Not Reportable 07/17/17 03:12 Seg Neutrophils # 2.5 K/mm3 (1.8-7.7) 07/16/17 05:24 Seg Neutrophils # Man 3.6 K/mm3 (1.8-7.7) 07/17/17 03:12 Band Neutrophils # 0.1 K/mm3 07/17/17 03:12 Lymphocytes # (Manual) 0.9 K/mm3 (1.2-5.4) L 07/17/17 03:12 Abs React Lymphs (Man) 0.0 K/mm3 07/17/17 03:12 Monocytes # (Manual) 0.4 K/mm3 (0.0-0.8) 07/17/17 03:12 Eosinophils # (Manual) 0.3 K/mm3 (0.0-0.4) 07/17/17 03:12 Basophils # (Manual) 0.0 K/mm3 (0.0-0.1) 07/17/17 03:12 Metamyelocytes # 0.0 K/mm3 07/17/17 03:12 Myelocytes # 0.0 K/mm3 07/17/17 03:12 Promyelocytes # 0.0 K/mm3 07/17/17 03:12 Blast Cells # 0.0 K/mm3 07/17/17 03:12 WBC Morphology Not Reportable 07/17/17 03:12 Hypersegmented Neuts Not Reportable 07/17/17 03:12 Hyposegmented Neuts Not Reportable 07/17/17 03:12 Hypogranular Neuts Not Reportable 07/17/17 03:12 Smudge Cells Not Reportable 07/17/17 03:12 Toxic Granulation Not Reportable 07/17/17 03:12 Toxic Vacuolation Not Reportable 07/17/17 03:12 Dohle Bodies Not Reportable 07/17/17 03:12 Pelger-Huet Anomaly Not Reportable 07/17/17 03:12 Deyanira Rods Not Reportable 07/17/17 03:12 Platelet Estimate Consistent w auto 07/17/17 03:12 Clumped Platelets Not Reportable 07/17/17 03:12 Plt Clumps, EDTA Not Reportable 07/17/17 03:12 Large Platelets Not Reportable 07/17/17 03:12 Giant Platelets Not Reportable 07/17/17 03:12 Platelet Satelliting Not Reportable 07/17/17 03:12 Plt Morphology Comment Not Reportable 07/17/17 03:12 RBC Morphology Not Reportable 07/17/17 03:12 Dimorphic RBCs Not Reportable 07/17/17 03:12 Polychromasia Not Reportable 07/17/17 03:12 Hypochromasia Not Reportable 07/17/17 03:12 Poikilocytosis Not Reportable 07/17/17 03:12 Anisocytosis Not Reportable 07/17/17 03:12 Microcytosis Not Reportable 07/17/17 03:12 Macrocytosis Not Reportable 07/17/17 03:12 Spherocytes Not Reportable 07/17/17 03:12 Pappenheimer Bodies Not Reportable 07/17/17 03:12 Sickle Cells Not Reportable 07/17/17 03:12 Target Cells Not Reportable 07/17/17 03:12 Tear Drop Cells Not Reportable 07/17/17 03:12 Ovalocytes Not Reportable 07/17/17 03:12 Stomatocytes Few 07/17/17 03:12 Helmet Cells Not Reportable 07/17/17 03:12 Hernandez-[place]ric[place] Bodies Not Reportable 07/17/17 03:12 [place] Rings Not Reportable 07/17/17 03:12 Shawn Cells Not Reportable 07/17/17 03:12 Bite Cells Not Reportable 07/17/17 03:12 Crenated Cell Not Reportable 07/17/17 03:12 Elliptocytes Not Reportable 07/17/17 03:12 Acanthocytes (Spur) Not Reportable 07/17/17 03:12 Rouleaux Not Reportable 07/17/17 03:12 Hemoglobin C Crystals Not Reportable 07/17/17 03:12 Schistocytes Not Reportable 07/17/17 03:12 Malaria parasites Not Reportable 07/17/17 03:12 Andrei Bodies Not Reportable 07/17/17 03:12 Hem Pathologist Commnt No 07/17/17 03:12 PT 16.3 Sec. (12.2-14.9) H 07/04/17 11:31 INR 1.25 (0.87-1.13) H 07/04/17 11:31 APTT 25.3 Sec. (24.2-36.6) 07/04/17 11:31 POC ABG pH 7.028 (7.35-7.45) L 07/07/17 10:29 POC ABG pCO2 11.9 (35-45) L 07/07/17 10:29 POC ABG pO2 129 (80-105) H 07/07/17 10:29 POC ABG HCO3 3.1 07/07/17 10:29 POC ABG Total CO2 < 5 07/07/17 10:29 POC ABG O2 Sat 97 07/07/17 10:29 POC ABG Base Excess -28 07/07/17 10:29 VBG pH 7.269 (7.320-7.420) L 07/07/17 16:13 FiO2 21 % 07/07/17 10:29 Sodium 135 mmol/L (137-145) L 07/17/17 03:12 Potassium 5.5 mmol/L (3.6-5.0) H D 07/17/17 03:12 Chloride 101.6 mmol/L (98-107) 07/17/17 03:12 Carbon Dioxide 21 mmol/L (22-30) L 07/17/17 03:12 Anion Gap 18 mmol/L 07/17/17 03:12 BUN 27 mg/dL (9-20) H 07/17/17 03:12 Creatinine 3.8 mg/dL (0.8-1.5) H 07/17/17 03:12 Estimated GFR 18 ml/min 07/17/17 03:12 BUN/Creatinine Ratio 7 % 07/17/17 03:12 Glucose 142 mg/dL (75-100) H 07/17/17 03:12 POC Glucose 204 (70-105) H 07/17/17 06:25 Osmolality 304 Mosm/kg 07/09/17 03:57 Lactic Acid 3.20 mmol/L (0.7-2.0) H* 07/04/17 14:28 Uric Acid 9.5 mg/dL (3.5-7.6) H 07/09/17 03:57 Calcium 7.3 mg/dL (8.4-10.2) L 07/17/17 03:12 Phosphorus 4.60 mg/dL (2.5-4.5) H D 07/07/17 13:10 Magnesium 1.80 mg/dL (1.7-2.3) 07/07/17 13:10 Total Bilirubin < 0.20 mg/dL (0.1-1.2) 07/04/17 11:25 AST 50 units/L (5-40) H 07/04/17 11:25 ALT 69 units/L (7-56) H 07/04/17 11:25 Alkaline Phosphatase 266 units/L (35-129) H 07/04/17 11:25 Total Creatine Kinase 168 units/L (55-170) 07/08/17 13:21 Serum Total Protein 4.4 g/dL (6.1-8.1) L 07/10/17 05:04 Total Protein 6.4 g/dL (6.3-8.2) 07/04/17 11:25 Albumin 1.9 g/dL (3.8-4.8) L 07/10/17 05:04 Albumin/Globulin Ratio 1.0 % 07/04/17 11:25 Nocex-8-Outgguuxv 0.3 g/dL (0.2-0.3) 07/10/17 05:04 Lmcxi-9-Zgjluvppt 0.8 g/dL (0.5-0.9) 07/10/17 05:04 Beta Globulins 0.3 g/dL (0.2-0.5) 07/10/17 05:04 Gamma Globulins 0.7 g/dL (0.8-1.7) L 07/10/17 05:04 Abnorm Protein Band 1 see below 07/10/17 05:04 PEP Interpretation see below H 07/10/17 05:04 TSH 1.810 mlU/mL (0.270-4.200) 07/04/17 11:25 Urine Color Yellow (Yellow) 07/09/17 09:28 Urine Turbidity Clear (Clear) 07/09/17 09:28 Urine pH 5.0 (5.0-7.0) 07/09/17 09:28 Ur Specific [place] 1.010 (1.003-1.030) 07/09/17 09:28 Urine Protein 100 mg/dl mg/dL (Negative) 07/09/17 09:28 Urine Glucose (UA) 150 mg/dL (Negative) 07/09/17 09:28 Urine Ketones Neg mg/dL (Negative) 07/09/17 09:28 Urine Blood Lg (Negative) 07/09/17 09:28 Urine Nitrite Neg (Negative) 07/09/17 09:28 Urine Bilirubin Neg (Negative) 07/09/17 09:28 Urine Urobilinogen < 2.0 mg/dL (<2.0) 07/09/17 09:28 Ur Leukocyte Esterase Mod (Negative) 07/09/17 09:28 Urine WBC (Auto) 14.0 /HPF (0.0-6.0) H 07/09/17 09:28 Urine RBC (Auto) > 182.0 /HPF (0.0-6.0) 07/09/17 09:28 U Epithel Cells (Auto) 1.0 /HPF (0-13.0) 07/09/17 09:28 Urine Bacteria (Auto) 1+ /HPF (Negative) 07/09/17 09:28 Amorphous Crystals Few 07/09/17 09:28 Urine Mucus Few /HPF 07/09/17 09:28 Urine Eosinophils None seen (None Seen) 07/09/17 10:10 Urine Creatinine 55.0 mg/dL (0.1-20.0) H 07/09/17 09:28 Urine Sodium 108 mEq/L 07/10/17 00:00 Fraction Sodium Excret 8.5 07/09/17 09:28 Salicylates < 0.3 mg/dL (2.8-20.0) L 07/04/17 11:25 Urine Opiates Screen Presumptive negative 07/04/17 12:38 Urine Methadone Screen Presumptive negative 07/04/17 12:38 Acetaminophen < 15.0 ug/mL (10.0-30.0) 07/04/17 11:25 Ur Barbiturates Screen Presumptive negative 07/04/17 12:38 Ur Phencyclidine Scrn Presumptive negative 07/04/17 12:38 Ur Amphetamines Screen Presumptive positive 07/04/17 12:38 U Benzodiazepines Scrn Presumptive negative 07/04/17 12:38 Urine Cocaine Screen Presumptive negative 07/04/17 12:38 U Marijuana (THC) Screen Presumptive negative 07/04/17 12:38 Drugs of Abuse Note Disclamer 07/04/17 12:38 Plasma/Serum Alcohol < 0.01 gm% (0-0.07) 07/04/17 11:25 GILLES Screen Negative (Negative) 07/09/17 09:28 Proteinase 3 (PR3) Ab <1.0 AI (<1.0) 07/09/17 09:28 Myeloperoxidase Ab <1.0 AI (<1.0) 07/09/17 09:28 Double Strand DNA Ab <1 IU/mL (<=4) 07/09/17 09:28 Complement C3 66 mg/dL (90-180) L 07/09/17 09:28 Complement C4 15 mg/dL (16-47) L 07/09/17 09:28 Hepatitis A IgM Ab Non-reactive (NonReactive) 07/09/17 10:37 Hep Bs Antigen Non-reactive (Negative) 07/09/17 10:37 Hep B Core IgM Ab Non-reactive (NonReactive) 07/09/17 10:37 Hepatitis C Antibody Reactive (NonReactive) A 07/09/17 10:37 Blood Type A NEGATIVE 07/12/17 12:41 Antibody Screen Negative 07/12/17 12:41 Crossmatch See Detail 07/12/17 12:41
[2017-07-17] MEDS: HEPARIN IV PRN (14:48)
[2017-07-17] MEDS: ATIVAN IV PRN (17:24)
[2017-07-18] MEDS: PERCOCET 5/325 PO PRN ×3 (03:59→15:38)
[2017-07-18] MEDS: NOVOLOG SUB-Q SCH ×4 (06:42→17:16)
--- NOTE | 2017-07-18 08:35 | Progress Note ---
Assessment and Plan - Patient Problems (1) Acute renal failure Current Visit: No Status: Acute Qualifiers: Acute renal failure type: unspecified Qualified Code(s): N17.9 - Acute kidney failure, unspecified Plan to address problem: may be prerenal with ATN ? underlying CKD, monitor for renal recovery. Pt has left femoral vas cath. Check labs tomorrow--if renal function is better-may remove vas cath and discharge. Nutrition support. [id number] per protocol (2) DKA (diabetic ketoacidoses) Current Visit: Yes Status: Resolved Qualifiers: Diabetes mellitus type: type 1 Diabetes mellitus complication detail: D (3) Brittle diabetes Current Visit: Yes Status: Acute (4) Anemia Current Visit: Yes Status: Acute Qualifiers: Anemia type: A Iron deficiency anemia type: I Vitamin B12 deficiency anemia type: V Folate deficiency anemia type: F Bone marrow failure anemia type: B Hemolytic anemia type: H Other causes of anemia: O Chronic kidney disease stage: C (5) Malnutrition Current Visit: Yes Status: Acute Qualifiers: Malnutrition type: M Protein-calorie malnutrition severity: P Subjective Date of service: 07/18/17 Principal diagnosis: DKA, hypoxia Interval history: alert, oriented, denies CP or SOB. Urinating little Objective - Vital Signs Vital signs: Vital Signs - 12hr 07/17/17 07/18/17 23:42 07:18 Temperature 98.6 F 97.9 F Pulse Rate 77 73 Respiratory 18 16 Rate Blood Pressure 127/83 116/77 O2 Sat by Pulse 97 99 Oximetry - General Appearance General appearance: chronically ill EENT: mucous membranes moist Neck: no JVD Respiratory: Present: Clear to Ascultation Cardiology: regular, systolic murmur Gastrointestinal: normoactive bowel sounds Neurologic: alert and oriented x3 Musculoskeletal: other (multiple tattoos) - Lab 07/17/17 03:12 07/17/17 03:12 Most recent lab results Calcium 7.3 mg/dL (8.4-10.2) L 07/17/17 03:12 Phosphorus 4.60 mg/dL (2.5-4.5) H D 07/07/17 13:10 Magnesium 1.80 mg/dL (1.7-2.3) 07/07/17 13:10 Urine Creatinine 55.0 mg/dL (0.1-20.0) H 07/09/17 09:28 Urine Sodium 108 mEq/L 07/10/17 00:00
[2017-07-18] MEDS: XANAX PO SCH ×3 (08:49→21:58)
[2017-07-18] MEDS: HEPARIN SUB-Q SCH ×2 (09:54→21:58)
[2017-07-18] MEDS: THERMAZENE 50 GRAM TP SCH ×3 (09:57→22:02)
[2017-07-18] MEDS: PEPCID PO SCH ×2 (09:57→21:57)
--- NOTE | 2017-07-18 14:02 | Progress Note ---
Assessment and Plan Assessment and plan: 42-year-old male with medical history significant for diabetes mellitus type 1, drug abuse admitted to the hospital for altered mental status, DKA, drug overdose, Sepsis with hypotension. Patient was intubated on admission and extubated on 07/06/2017 DKA - Managed according to DKA protocol and resolved Diabetes mellitus with hyperglycemia - Patient is currently on insulin protocol - patient has episode of hypoglycemia, and discontinued his long acting insulin Hypoglycemia - D50 was given, has been long-acting insulin, will monitor Sepsis - Resolved - Blood cultures are negative - patient is off antibiotics Acute toxic metabolic encephalopathy due to amphetamine - Resolved Acute blood loss anemia - H/H stable Metabolic acidosis: - Resolved Acute respiratory failure, extubated 07/06/17 - Resolved ARF, vasomotor nephropathy: - Nephrology is following, continue dialysis - Cr is pending Thrombocytopenia - Improved currently platelet is 142 DVT prophylaxis - On heparin Disposition - Nephrology said will check BMP tomorrow and if going down D/C the patient. History Interval history: Patient was seen and evaluated this morning, patient didn't have any complaints Hospitalist Physical - Physical exam Narrative exam: Not in cardiopulmonary distress. The patient appeared well nourished and normally developed. Vital signs as documented. Head exam is unremarkable. No scleral icterus . Neck is without jugular venous distension, thyromegaly, or carotid bruits. Lungs are clear to auscultation. Cardiac exam reveals regular rate and Rhythm. First and second heart sounds normal. No murmurs, rubs or gallops. Abdominal exam reveals normal bowel sounds, no masses, no organomegaly and no aortic enlargement. Extremities are nonedematous and both femoral and pedal pulses are normal. FREIGHT BRAKEMAN: Alert and oriented 3. No focal weakness. - Constitutional Vitals: Temp Pulse Resp BP Pulse Ox 97.9 F 73 16 116/77 99 07/18/17 07:18 07/18/17 07:18 07/18/17 07:18 07/18/17 07:18 07/18/17 07:18 General appearance: Present: no acute distress. Absent: other Results - Labs CBC & Chem 7: 07/17/17 03:12 07/17/17 03:12 Labs: Laboratory Last Values WBC 5.2 K/mm3 (4.5-11.0) 07/17/17 03:12 RBC 2.80 M/mm3 (3.65-5.03) L 07/17/17 03:12 Hgb 7.9 gm/dl (11.8-15.2) L 07/17/17 03:12 Hct 23.9 % (35.5-45.6) L 07/17/17 03:12 MCV 85 fl (84-94) 07/17/17 03:12 MCH 28 pg (28-32) 07/17/17 03:12 MCHC 33 % (32-34) 07/17/17 03:12 RDW 14.7 % (13.2-15.2) 07/17/17 03:12 Plt Count 190 K/mm3 (140-440) 07/17/17 03:12 Lymph % (Auto) 30.3 % (13.4-35.0) 07/16/17 05:24 [place] % (Auto) 7.1 % (0.0-7.3) 07/16/17 05:24 Eos % (Auto) 3.1 % (0.0-4.3) 07/16/17 05:24 Baso % (Auto) Identity Management Consultant 07/17/17 03:12 Lymph # 1.3 K/mm3 (1.2-5.4) 07/16/17 05:24 [place] # 0.3 K/mm3 (0.0-0.8) 07/16/17 05:24 Eos # 0.1 K/mm3 (0.0-0.4) 07/16/17 05:24 Baso # 0.1 K/mm3 (0.0-0.1) 07/16/17 05:24 Add Manual Diff Complete 07/17/17 03:12 Total Counted 100 07/17/17 03:12 Seg Neutrophils % 58.3 % (40.0-70.0) 07/16/17 05:24 Seg Neuts % (Manual) 69.0 % (40.0-70.0) 07/17/17 03:12 Band Neutrophils % 1.0 % 07/17/17 03:12 Lymphocytes % (Manual) 18.0 % (13.4-35.0) 07/17/17 03:12 Reactive Lymphs % (Man) 0 % 07/17/17 03:12 Monocytes % (Manual) 7.0 % (0.0-7.3) 07/17/17 03:12 Eosinophils % (Manual) 5.0 % (0.0-4.3) H 07/17/17 03:12 Basophils % (Manual) 0 % (0.0-1.8) 07/17/17 03:12 Metamyelocytes % 0 % 07/17/17 03:12 Myelocytes % 0 % 07/17/17 03:12 Promyelocytes % 0 % 07/17/17 03:12 Blast Cells % 0 % 07/17/17 03:12 Nucleated RBC % Not Reportable 07/17/17 03:12 Seg Neutrophils # 2.5 K/mm3 (1.8-7.7) 07/16/17 05:24 Seg Neutrophils # Man 3.6 K/mm3 (1.8-7.7) 07/17/17 03:12 Band Neutrophils # 0.1 K/mm3 07/17/17 03:12 Lymphocytes # (Manual) 0.9 K/mm3 (1.2-5.4) L 07/17/17 03:12 Abs React Lymphs (Man) 0.0 K/mm3 07/17/17 03:12 Monocytes # (Manual) 0.4 K/mm3 (0.0-0.8) 07/17/17 03:12 Eosinophils # (Manual) 0.3 K/mm3 (0.0-0.4) 07/17/17 03:12 Basophils # (Manual) 0.0 K/mm3 (0.0-0.1) 07/17/17 03:12 Metamyelocytes # 0.0 K/mm3 07/17/17 03:12 Myelocytes # 0.0 K/mm3 07/17/17 03:12 Promyelocytes # 0.0 K/mm3 07/17/17 03:12 Blast Cells # 0.0 K/mm3 07/17/17 03:12 WBC Morphology Not Reportable 07/17/17 03:12 Hypersegmented Neuts Not Reportable 07/17/17 03:12 Hyposegmented Neuts Not Reportable 07/17/17 03:12 Hypogranular Neuts Not Reportable 07/17/17 03:12 Smudge Cells Not Reportable 07/17/17 03:12 Toxic Granulation Not Reportable 07/17/17 03:12 Toxic Vacuolation Not Reportable 07/17/17 03:12 Dohle Bodies Not Reportable 07/17/17 03:12 Pelger-Huet Anomaly Not Reportable 07/17/17 03:12 Deyanira Rods Not Reportable 07/17/17 03:12 Platelet Estimate Consistent w auto 07/17/17 03:12 Clumped Platelets Not Reportable 07/17/17 03:12 Plt Clumps, EDTA Not Reportable 07/17/17 03:12 Large Platelets Not Reportable 07/17/17 03:12 Giant Platelets Not Reportable 07/17/17 03:12 Platelet Satelliting Not Reportable 07/17/17 03:12 Plt Morphology Comment Not Reportable 07/17/17 03:12 RBC Morphology Not Reportable 07/17/17 03:12 Dimorphic RBCs Not Reportable 07/17/17 03:12 Polychromasia Not Reportable 07/17/17 03:12 Hypochromasia Not Reportable 07/17/17 03:12 Poikilocytosis Not Reportable 07/17/17 03:12 Anisocytosis Not Reportable 07/17/17 03:12 Microcytosis Not Reportable 07/17/17 03:12 Macrocytosis Not Reportable 07/17/17 03:12 Spherocytes Not Reportable 07/17/17 03:12 Pappenheimer Bodies Not Reportable 07/17/17 03:12 Sickle Cells Not Reportable 07/17/17 03:12 Target Cells Not Reportable 07/17/17 03:12 Tear Drop Cells Not Reportable 07/17/17 03:12 Ovalocytes Not Reportable 07/17/17 03:12 Stomatocytes Few 07/17/17 03:12 Helmet Cells Not Reportable 07/17/17 03:12 Hernandez-[place] Bodies Not Reportable 07/17/17 03:12 [place] Rings Not Reportable 07/17/17 03:12 Shawn Cells Not Reportable 07/17/17 03:12 Bite Cells Not Reportable 07/17/17 03:12 Crenated Cell Not Reportable 07/17/17 03:12 Elliptocytes Not Reportable 07/17/17 03:12 Acanthocytes (Spur) Not Reportable 07/17/17 03:12 Rouleaux Not Reportable 07/17/17 03:12 Hemoglobin C Crystals Not Reportable 07/17/17 03:12 Schistocytes Not Reportable 07/17/17 03:12 Malaria parasites Not Reportable 07/17/17 03:12 Andrei Bodies Not Reportable 07/17/17 03:12 Hem Pathologist Commnt No 07/17/17 03:12 PT 16.3 Sec. (12.2-14.9) H 07/04/17 11:31 INR 1.25 (0.87-1.13) H 07/04/17 11:31 APTT 25.3 Sec. (24.2-36.6) 07/04/17 11:31 POC ABG pH 7.028 (7.35-7.45) L 07/07/17 10:29 POC ABG pCO2 11.9 (35-45) L 07/07/17 10:29 POC ABG pO2 129 (80-105) H 07/07/17 10:29 POC ABG HCO3 3.1 07/07/17 10:29 POC ABG Total CO2 < 5 07/07/17 10:29 POC ABG O2 Sat 97 07/07/17 10:29 POC ABG Base Excess -28 07/07/17 10:29 VBG pH 7.269 (7.320-7.420) L 07/07/17 16:13 FiO2 21 % 07/07/17 10:29 Sodium 135 mmol/L (137-145) L 07/17/17 03:12 Potassium 5.5 mmol/L (3.6-5.0) H D 07/17/17 03:12 Chloride 101.6 mmol/L (98-107) 07/17/17 03:12 Carbon Dioxide 21 mmol/L (22-30) L 07/17/17 03:12 Anion Gap 18 mmol/L 07/17/17 03:12 BUN 27 mg/dL (9-20) H 07/17/17 03:12 Creatinine 3.8 mg/dL (0.8-1.5) H 07/17/17 03:12 Estimated GFR 18 ml/min 07/17/17 03:12 BUN/Creatinine Ratio 7 % 07/17/17 03:12 Glucose 142 mg/dL (75-100) H 07/17/17 03:12 POC Glucose 188 (70-105) H 07/18/17 11:11 Osmolality 304 Mosm/kg 07/09/17 03:57 Lactic Acid 3.20 mmol/L (0.7-2.0) H* 07/04/17 14:28 Uric Acid 9.5 mg/dL (3.5-7.6) H 07/09/17 03:57 Calcium 7.3 mg/dL (8.4-10.2) L 07/17/17 03:12 Phosphorus 4.60 mg/dL (2.5-4.5) H D 07/07/17 13:10 Magnesium 1.80 mg/dL (1.7-2.3) 07/07/17 13:10 Total Bilirubin < 0.20 mg/dL (0.1-1.2) 07/04/17 11:25 AST 50 units/L (5-40) H 07/04/17 11:25 ALT 69 units/L (7-56) H 07/04/17 11:25 Alkaline Phosphatase 266 units/L (35-129) H 07/04/17 11:25 Total Creatine Kinase 168 units/L (55-170) 07/08/17 13:21 Serum Total Protein 4.4 g/dL (6.1-8.1) L 07/10/17 05:04 Total Protein 6.4 g/dL (6.3-8.2) 07/04/17 11:25 Albumin 1.9 g/dL (3.8-4.8) L 07/10/17 05:04 Albumin/Globulin Ratio 1.0 % 07/04/17 11:25 Ozkbk-4-Lhgsbfieq 0.3 g/dL (0.2-0.3) 07/10/17 05:04 [place]-4-Injjdscin 0.8 g/dL (0.5-0.9) 07/10/17 05:04 Beta Globulins 0.3 g/dL (0.2-0.5) 07/10/17 05:04 Gamma Globulins 0.7 g/dL (0.8-1.7) L 07/10/17 05:04 Abnorm Protein Band 1 see below 07/10/17 05:04 PEP Interpretation see below H 07/10/17 05:04 TSH 1.810 mlU/mL (0.270-4.200) 07/04/17 11:25 Urine Color Yellow (Yellow) 07/09/17 09:28 Urine Turbidity Clear (Clear) 07/09/17 09:28 Urine pH 5.0 (5.0-7.0) 07/09/17 09:28 Ur Specific [place] 1.010 (1.003-1.030) 07/09/17 09:28 Urine Protein 100 mg/dl mg/dL (Negative) 07/09/17 09:28 Urine Glucose (UA) 150 mg/dL (Negative) 07/09/17 09:28 Urine Ketones Neg mg/dL (Negative) 07/09/17 09:28 Urine Blood Lg (Negative) 07/09/17 09:28 Urine Nitrite Neg (Negative) 07/09/17 09:28 Urine Bilirubin Neg (Negative) 07/09/17 09:28 Urine Urobilinogen < 2.0 mg/dL (<2.0) 07/09/17 09:28 Ur Leukocyte Esterase Mod (Negative) 07/09/17 09:28 Urine WBC (Auto) 14.0 /HPF (0.0-6.0) H 07/09/17 09:28 Urine RBC (Auto) > 182.0 /HPF (0.0-6.0) 07/09/17 09:28 U Epithel Cells (Auto) 1.0 /HPF (0-13.0) 07/09/17 09:28 Urine Bacteria (Auto) 1+ /HPF (Negative) 07/09/17 09:28 Amorphous Crystals Few 07/09/17 09:28 Urine Mucus Few /HPF 07/09/17 09:28 Urine Eosinophils None seen (None Seen) 07/09/17 10:10 Urine Creatinine 55.0 mg/dL (0.1-20.0) H 07/09/17 09:28 Urine Sodium 108 mEq/L 07/10/17 00:00 Fraction Sodium Excret 8.5 07/09/17 09:28 Salicylates < 0.3 mg/dL (2.8-20.0) L 07/04/17 11:25 Urine Opiates Screen Presumptive negative 07/04/17 12:38 Urine Methadone Screen Presumptive negative 07/04/17 12:38 Acetaminophen < 15.0 ug/mL (10.0-30.0) 07/04/17 11:25 Ur Barbiturates Screen Presumptive negative 07/04/17 12:38 Ur Phencyclidine Scrn Presumptive negative 07/04/17 12:38 Ur Amphetamines Screen Presumptive positive 07/04/17 12:38 U Benzodiazepines Scrn Presumptive negative 07/04/17 12:38 Urine Cocaine Screen Presumptive negative 07/04/17 12:38 U Marijuana (THC) Screen Presumptive negative 07/04/17 12:38 Drugs of Abuse Note Disclamer 07/04/17 12:38 Plasma/Serum Alcohol < 0.01 gm% (0-0.07) 07/04/17 11:25 GILLES Screen Negative (Negative) 07/09/17 09:28 Proteinase 3 (PR3) Ab <1.0 AI (<1.0) 07/09/17 09:28 Myeloperoxidase Ab <1.0 AI (<1.0) 07/09/17 09:28 Double Strand DNA Ab <1 IU/mL (<=4) 07/09/17 09:28 Complement C3 66 mg/dL (90-180) L 07/09/17 09:28 Complement C4 15 mg/dL (16-47) L 07/09/17 09:28 Hepatitis A IgM Ab Non-reactive (NonReactive) 07/09/17 10:37 Hep Bs Antigen Non-reactive (Negative) 07/09/17 10:37 Hep B Core IgM Ab Non-reactive (NonReactive) 07/09/17 10:37 Hepatitis C Antibody Reactive (NonReactive) A 07/09/17 10:37 Blood Type A NEGATIVE 07/12/17 12:41 Antibody Screen Negative 07/12/17 12:41 Crossmatch See Detail 07/12/17 12:41
[2017-07-18] MEDS: ATIVAN IV PRN (17:19)
[2017-07-19] MEDS: NOVOLOG SUB-Q SCH ×3 (00:05→13:25)
[2017-07-19] MEDS: PERCOCET 5/325 PO PRN ×2 (02:05→13:33)
[2017-07-19 04:33] LABS: Basophils % (Auto) 1.4 % (0.0-1.8); Hemoglobin 8.7 gm/dl (11.8-15.2); Mean Corpuscular HGB Conc 32 % (32-34); Mean Corpuscular Hemoglobin 29 pg (28-32); Mean Corpuscular Volume 90 fl (84-94); Platelet Count 191 K/mm3 (140-440); Red Cell Distribution Width 15.9 % (13.2-15.2); White Blood Count 4.4 K/mm3 (4.5-11.0)
[2017-07-19 07:35] VITALS: BP 142/96
[2017-07-19] MEDS: PEPCID PO SCH (09:10)
[2017-07-19] MEDS: XANAX PO SCH (09:11)
[2017-07-19] MEDS: ATIVAN IV PRN (09:11)
[2017-07-19] MEDS: HEPARIN SUB-Q SCH (09:12)
[2017-07-19] MEDS: THERMAZENE 50 GRAM TP SCH (09:55)
[2017-07-19 11:52] LABS: Calcium 7.4 mg/dL (8.4-10.2); Chloride 104.6 mmol/L (98-107); Potassium 5.1 mmol/L (3.6-5.0)
[2017-07-19] MEDS ORDERED: KIONEX PO ONE (13:21)
--- NOTE | 2017-07-19 13:27 | Discharge Summary ---
Providers - Providers Date of Admission: 07/04/17 12:40 Date of discharge: 07/19/17 Attending physician: GILBERTO BENITES MD 07/07/17 12:45 Consult to Dietitian/Nutrition [CONS] Routine Physician Instructions: Reason For Exam: DKA Reason for Consult: Nutrition Recommendations Reason for Consult: Diet education 07/07/17 12:59 Consult to Physician [CONS] Routine Consulting Provider: ALESHA MARTEL Reason For Exam: severe acidosis Place consult to:: Dr. Martel Notified:: Yes Phone number called:: [phone] 07/07/17 18:36 Consult to Wound/ET Nurse [CONS] Routine Reason For Exam: wound eval ( sacral/buttocks) 07/08/17 11:38 Consult to Physician [CONS] Routine Consulting Provider: GIDEON JONES Reason For Exam: Critical Care Admit Place consult to:: Dr Jones Notified:: yes Was contact made?: Yes If yes, spoke with:: Dr Jones Time called:: 11:39 07/08/17 13:16 Consult to Physician [CONS] Routine Consulting Provider: GIANFRANCO HOYOS Reason For Exam: ARF Place consult to:: Morgan Notified:: yes 07/09/17 08:15 Consult to Physician [CONS] Urgent Consulting Provider: MARIO TUTTLE Reason For Exam: vascath palcement Notified:: spoke with Bennett Primary care physician: GRAIN BUYER Hospitalization Reason for admission: respiratory failure, acute kidney injury, toxic encephalopathy Hospital course: 42 YO Male with DM, HCV, Nicotine Dependence, IVDA presents to ED for evaluation. Patient found down and unresponsive in a local hotel with evidence of drug paraphernalia near him. Pt unable to provide history. History taken from EMS. EMS was notified, and upon arrival patient was found to be stuporous, hypotensive, hypothermic, hyperglycemic, and hypoxic in the field. Pt was trated with 2 mg of Narcan , with mild improvement in neurologic status. Upon arrival to the ER, the patient was foud to be in DKA with severe metabolic acidosis, encephalopathic, and evidence of Sepsis. Pt intubated for airway protection, and initiated on sepsis protocol as well as DKA protocol and transferred to ICU. Patient was managed in the ICU for DKA and respiratory failure, the patient showed improvement and transferred to the floor for further management. Patient has acute renal failure and nephrology was consulted and put him on dialysis. His kidney function is getting better, he has a decreased urine output and per nephrology patient doesn't need dialysis and recommended to discharged home. His encephalopathy was resolved and he was also consulted to quit using drugs. Patient is hemodynamically stable at the time of discharge. Appropriate medications were updated and prescription was given. Patient was discharged home in a stable condition. Disposition: DC-01 TO HOME OR SELFCARE Time spent for discharge: 31 minutes - Discharge Diagnoses (1) Acute respiratory failure Status: Acute Qualifiers: Respiratory failure complication: R (2) Altered mental status Status: Acute Qualifiers: Altered mental status type: A Coma depth: C Coma timing: C (3) Anemia Status: Acute Qualifiers: Anemia type: unspecified type Iron deficiency anemia type: I Vitamin B12 deficiency anemia type: V Folate deficiency anemia type: F Bone marrow failure anemia type: B Hemolytic anemia type: H Other causes of anemia: O Chronic kidney disease stage: C Qualified Code(s): D64.9 - Anemia, unspecified (4) Brittle diabetes Status: Chronic (5) Malnutrition Status: Acute Qualifiers: Malnutrition type: M Protein-calorie malnutrition severity: moderate Qualified Code(s): E44.0 - Moderate protein-calorie malnutrition (6) Metabolic acidosis Status: Acute (7) Acute renal failure on dialysis Status: Acute Comment: Patient need dialysis while inpatient. D/deandra by air hole driller. (8) Metabolic encephalopathy Status: Acute Core Measure Documentation - Palliative Care Palliative Care/ Comfort Measures: Not Applicable - Core Measures Any of the following diagnoses?: none Exam - Physical Exam Narrative exam: Not in cardiopulmonary distress. The patient appeared well nourished and normally developed. Vital signs as documented. Head exam is unremarkable. No scleral icterus . Neck is without jugular venous distension, thyromegaly, or carotid bruits. Lungs are clear to auscultation. Cardiac exam reveals regular rate and Rhythm. First and second heart sounds normal. No murmurs, rubs or gallops. Abdominal exam reveals normal bowel sounds, no masses, no organomegaly and no aortic enlargement. Extremities are nonedematous and both femoral and pedal pulses are normal. SALES SUPPORT ENGINEER: Alert and oriented 3. No focal weakness. - Constitutional Vitals: Temp Pulse Resp BP Pulse Ox 98.5 F 75 18 142/96 97 11/10/17 07:32 07/19/17 07:32 07/19/17 07:32 07/19/17 07:32 07/19/17 07:32 Plan Activity: no restrictions Weight Bearing Status: Full Weight Bearing Diet: low salt, diabetic, renal Additional Instructions: Please follow @[facility] in 1 week Follow up with: PRIMARY MD APOLINAR [Primary Care Provider] - 3-5 Days GIANFRANCO HOYOS MD [Staff Physician] - 7 Days Prescriptions: Insulin Lispro [Humalog 100 UNITS/ML Kwikpen] 10 units SQ TIDAC #30 insuln.pen Lantus Solostar 15 units SQ HS #30 oxyCODONE /ACETAMINOPHEN [Percocet 5/325 mg] 2 tab PO Q6H PRN #12 tablet PRN Reason: Pain, Moderate (4-6) Xanax TAB 0.5 mg PO BID #14
--- NOTE | 2017-07-19 15:21 | Progress Note ---
Assessment and Plan Assessment * Oliguric BRITTANY secondary to ATN - FeNa 8.5% --Renal u/s; nml size - right 13.5, left 13.3; +echogenic kidneys --Urine eos negative --ANCA neg, GILLES neg * Hypocomplementemia * Metabolic acidosis - DKA vs lactic acidosis * Anemia * History of drug use * Hypertension * AMS * Hepatitis C Recommendations * Renal function improved. BRITTANY resolving. No further need for HD * Remove left femoral vas cath * Encouraged po hydration * Avoid nephrotoxins * Adjust meds for renal function * Stable for d/c from a renal standpoint once vas cath removed Subjective Date of service: 07/19/17 Principal diagnosis: DKA, hypoxia Interval history: Patient denies SOB. Has no complaint today. Objective - Vital Signs Vital signs: Vital Signs - 12hr 07/19/17 07:32 Temperature 98.5 F Pulse Rate 75 Respiratory 18 Rate Blood Pressure 142/96 O2 Sat by Pulse 97 Oximetry - General Appearance General appearance: well-developed, well-nourished EENT: ATNC Respiratory: Present: Clear to Ascultation Cardiology: regular, S1S2 Gastrointestinal: normal, no tenderness, no distended Integumentary: no rash Musculoskeletal: other (1+ edema) - Lab 07/19/17 04:15 07/19/17 10:57 Most recent lab results Calcium 7.4 mg/dL (8.4-10.2) L 07/19/17 10:57 Phosphorus 4.60 mg/dL (2.5-4.5) H D 07/07/17 13:10 Magnesium 1.80 mg/dL (1.7-2.3) 07/07/17 13:10 Urine Creatinine 55.0 mg/dL (0.1-20.0) H 07/09/17 09:28 Urine Sodium 108 mEq/L 07/10/17 00:00
[2017-07-19] MEDS ORDERED: TRIPLE ANTIBIOTIC TP ONE ×2 (15:43→16:11)
[2017-07-19] MEDS ORDERED: ATIVAN PO PRN (16:02)
== END 2017-07-19 17:33 | disposition home or self-care (01) | DRG 871 ==
LOC: ED 11:04 → CC1 12:40 → 3A 07-07 01:53 → CC1 07-07 12:28 → 3A 07-10 19:39
PROVIDERS: ADMIT Internal Medicine; ATTEND Internal Medicine
PROC: 4A033R1 Measurement of Arterial Saturation, Peripheral, Percutaneous Approach (ICD-10-PCS; principal; 2017-07-04)
PROC: 02H633Z Insertion of Infusion Device into Right Atrium, Percutaneous Approach (ICD-10-PCS; 2017-07-04)
PROC: 5A1945Z Respiratory Ventilation, 24-96 Consecutive Hours (ICD-10-PCS; 2017-07-04)
PROC: 0BH17EZ Insertion of Endotracheal Airway into Trachea, Via Natural or Artificial Opening (ICD-10-PCS; 2017-07-04)
PROC: 5A09357 Assistance with Respiratory Ventilation, Less than 24 Consecutive Hours, Continuous Positive Airway Pressure (ICD-10-PCS; 2017-07-07)
PROC: 5A1D70Z Performance of Urinary Filtration, Intermittent, Less than 6 Hours Per Day (ICD-10-PCS; 2017-07-09)
PROC: 5A1D70Z Performance of Urinary Filtration, Intermittent, Less than 6 Hours Per Day (ICD-10-PCS; 2017-07-10)
PROC: 06HN33Z Insertion of Infusion Device into Left Femoral Vein, Percutaneous Approach (ICD-10-PCS; 2017-07-11)
PROC: 5A1D70Z Performance of Urinary Filtration, Intermittent, Less than 6 Hours Per Day (ICD-10-PCS; 2017-07-12)
PROC: 30233N1 Transfusion of Nonautologous Red Blood Cells into Peripheral Vein, Percutaneous Approach (ICD-10-PCS; 2017-07-12)
PROC: 5A1D70Z Performance of Urinary Filtration, Intermittent, Less than 6 Hours Per Day (ICD-10-PCS; 2017-07-15)
PROC: 5A1D70Z Performance of Urinary Filtration, Intermittent, Less than 6 Hours Per Day (ICD-10-PCS; 2017-07-17)
DX: A41.9 Sepsis, unspecified organism (principal); J96.00 Acute respiratory failure, unspecified whether with hypoxia or hypercapnia; G93.41 Metabolic encephalopathy; J96.01 Acute respiratory failure with hypoxia; E10.10 Type 1 diabetes mellitus with ketoacidosis without coma; N17.9 Acute kidney failure, unspecified; F15.93 Other stimulant use, unspecified with withdrawal; K75.9 Inflammatory liver disease, unspecified; E87.5 Hyperkalemia; D64.9 Anemia, unspecified; E86.9 Volume depletion, unspecified; Z83.3 Family history of diabetes mellitus; Z82.49 Family history of ischemic heart disease and other diseases of the circulatory system; Z79.4 Long term (current) use of insulin; Z79.899 Other long term (current) drug therapy
CPT/HCPCS: 36415; 36556; 36569; 36600; 70450; 71010; 72125; 76770; 76937; 80048; 80053; 80074; 80307; 80320; 81001; 82140; 82270; 82550; 82565; 82570; 82803; 82805; 82962; 83735; 83930; 84100; 84132; 84165; 84295; 84300; 84443; 84550; 85007; 85025; 85027; 85610; 85730; 86021; 86038; 86160; 86225; 86850; 86900; 86901; 86920; 87040; 87086; 89050; 93005; 93010; 94002; 94003; 94640; 94660; 94760; 96365; 99291; A6250; C1752; G0480; J0690; J0696; J1200; J1630; J1644; J1815; J1818; J2060; J2250; J2543; J2704; J3010; J3370; J3480; J7030; J7040; J7050; J7070; P9016

== ENCOUNTER 2017-07-29 21:47 | Inpatient (IN) | payer SELFPAY ==
--- NOTE | 2017-07-29 23:03 | Emergency Department Report ---
HPI - General Chief Complaint: Altered Mental Status Time Seen by Provider: 07/29/17 22:10 - HPI HPI: This is a 42-year-old male who presents to the emergency department by EMS from home with what appears to be altered mental status and hyperglycemia. The EMS run sheet says that the patient was complaining of suicide attempt to them and was found lying in a bathtub full of feces. Patient 's mother had stated that the patient was recently discharged from the hospital for a diabetic coma. An IV was placed and he was given 1 L of IV fluid and transported to [facility], the closest facility. He himself says that he is unable to tell me his name, date, place and is a poor historian at this time. ED Past Medical Hx - Past Medical History Hx Hypertension: No Hx Heart Attack/AMI: No Hx Congestive Heart Failure: No Hx Diabetes: Yes Hx Deep Vein Thrombosis: No Hx Pulmonary Embolism: No Hx GERD: No Hx Liver Disease: Yes (Hepatitis C) Hx Renal Disease: No Hx Arthritis: No Hx Kidney Stones: No Hx Asthma: No Hx COPD: No Hx Tuberculosis: No Hx HIV: (unknown) Additional medical history: Hepatitis C - Surgical History Hx Coronary Stent: No Hx Open Heart Surgery: No Hx Pacemaker: No Hx Internal Defibrillator: No Hx Cholecystectomy: No Hx Appendectomy: No Hx Breast Surgery: No Additional Surgical History: Tonsillectomy - Social History Smoking Status: Never Smoker Substance Use Type: Methamphetamines - Medications Home Medications: Home Medications Medication Instructions Recorded Confirmed Last Taken Type Metoclopramide [Reglan] 10 mg PO TID #90 tab 06/01/17 07/11/17 Unknown Rx Insulin Lispro [Humalog 100 10 units SQ TIDAC #30 insuln.pen 07/19/17 Unknown Rx UNITS/ML Kwikpen] Lantus Solostar 15 units SQ HS #30 07/19/17 Unknown Rx Xanax TAB 0.5 mg PO BID #14 07/19/17 Unknown Rx oxyCODONE /ACETAMINOPHEN [Percocet 2 tab PO Q6H PRN #12 tablet 07/19/17 Unknown Rx 5/325 mg] ED Review of Systems ROS: Stated complaint: HYPERGLYCEMIA Other details as noted in HPI Comment: Unobtainable due to pts medical conditions Physical Exam - Physical Exam Vital Signs: Vital Signs 07/29/17 07/29/17 07/29/17 21:54 21:56 21:58 Temperature Pulse Rate 74 59 L 71 Respiratory 10 L 13 Rate Blood Pressure 172/85 172/85 Blood Pressure [Left] O2 Sat by Pulse 99 100 100 Oximetry 07/29/17 07/29/17 07/29/17 22:00 22:02 22:04 Temperature 98.4 F Pulse Rate 61 64 61 Respiratory 14 12 12 Rate Blood Pressure 172/85 172/91 172/91 Blood Pressure [Left] O2 Sat by Pulse 100 100 100 Oximetry 07/29/17 07/29/17 07/29/17 22:06 22:07 22:08 Temperature 98.4 F Pulse Rate 61 63 59 L Respiratory 14 14 13 Rate Blood Pressure 172/91 172/91 Blood Pressure 172/85 [Left] O2 Sat by Pulse 100 100 100 Oximetry 07/29/17 07/29/17 22:10 22:12 Temperature Pulse Rate 68 64 Respiratory 12 13 Rate Blood Pressure 172/91 172/91 Blood Pressure [Left] O2 Sat by Pulse 100 100 Oximetry Physical Exam: GENERAL: The patient is well-developed well-nourished. HENT: Normocephalic. Atraumatic. Patient has moist mucous membranes. EYES: Extraocular motions are intact. Pupils equal reactive to light bilaterally. NECK: Supple. Trachea is midline. CHEST/LUNGS: Clear to auscultation. There is no respiratory distress noted. HEART/CARDIOVASCULAR: Regular. There is no tachycardia. There is no murmur. ABDOMEN: Abdomen is soft, nontender. Patient has normal bowel sounds. There is no abdominal distention. SKIN: Skin is warm and dry. NEURO: The patient is awake but confused or uncooperative. He answers I don't know to mostly all questions and therefore appears to be AAO x 0. He does follow some commands. The patient has normal speech. MUSCULOSKELETAL: There is no tenderness or deformity. There is no limitation range of motion. There is no evidence of acute injury. ED Course Vital Signs 07/29/17 07/29/17 07/29/17 21:54 21:56 21:58 Temperature Pulse Rate 74 59 L 71 Respiratory 10 L 13 Rate Blood Pressure 172/85 172/85 Blood Pressure [Left] O2 Sat by Pulse 99 100 100 Oximetry 07/29/17 07/29/17 07/29/17 22:00 22:02 22:04 Temperature 98.4 F Pulse Rate 61 64 61 Respiratory 14 12 12 Rate Blood Pressure 172/85 172/91 172/91 Blood Pressure [Left] O2 Sat by Pulse 100 100 100 Oximetry 07/29/17 07/29/17 07/29/17 22:06 22:07 22:08 Temperature 98.4 F Pulse Rate 61 63 59 L Respiratory 14 14 13 Rate Blood Pressure 172/91 172/91 Blood Pressure 172/85 [Left] O2 Sat by Pulse 100 100 100 Oximetry 07/29/17 07/29/17 22:10 22:12 Temperature Pulse Rate 68 64 Respiratory 12 13 Rate Blood Pressure 172/91 172/91 Blood Pressure [Left] O2 Sat by Pulse 100 100 Oximetry ED Medical Decision Making - Lab Data Result diagrams: 07/29/17 21:44 07/30/17 01:10 - EKG Data -: EKG Interpreted by Me EKG shows normal: sinus rhythm, axis, intervals, QRS complexes, ST-T waves Rate: normal - EKG Data When compared to previous EKG there are: no significant change Interpretation: normal EKG, unchanged when compared t (07/04/17) - Radiology Data Radiology results: report reviewed, image reviewed interpreted by me: Chest x-ray does not show any acute process. There are no pleural effusions, obvious pneumonia and there is no pneumothorax. EXAM: CT HEAD/BRAIN WO CON HISTORY: AMS TECHNIQUE: Routine axial imaging was obtained of the brain without IV contrast. There are no previous studies available for comparison. FINDINGS: There is mild to moderate generalized atrophy. There is no evidence of acute stroke or hemorrhage. The ventricular system is appropriate in size and is symmetric. The visualized sinuses are clear. The mastoid air cells are well pneumatized. The calvarium appears intact. IMPRESSION: [id number] generalized atrophy which is of uncertain etiology. No evidence of acute stroke or hemorrhage. Transcribed By: RB Dictated By: ADAM JEROME MD Electronically Authenticated By: ADAM JEROME MD Signed Date/Time: 07/29/172158 - Medical Decision Making 42-year-old male presents with some altered mental status from home. He was found at home allegedly in a tub with feces and was making suicidal claims at that time. For this reason he was made a 1013, but since I have seen him he has been more of an altered mental status and is either confused or uncooperative. Labs appear consistent with diabetic ketoacidosis as he has venous acidosis, blood sugar level of about 550, elevated anion gap. He was placed on an insulin drip and given IV fluid resuscitation. CT of the head did not show any bleed, shift, mass or any acute process. He was admitted to the ICU by Dr. Dueñas. - Differential Diagnosis DKA, HHNK, ETOH or Substance abuse/intoxication, psychosis Critical Care Time: No Critical care attestation.: If time is entered above; I have spent that time in minutes in the direct care of this critically ill patient, excluding procedure time. ED Disposition Clinical Impression: Metabolic acidosis, Transaminitis DKA, type 1 Qualifiers: Diabetes mellitus complication detail: without coma Qualified Code(s): E10.10 - Type 1 diabetes mellitus with ketoacidosis without coma Altered mental status Qualifiers: Altered mental status type: unspecified Qualified Code(s): R41.82 - Altered mental status, unspecified Disposition: DC-09 OP ADMIT IP TO THIS HOSP Is pt being admited?: Yes Condition: Serious Time of Disposition: 03:46
[2017-07-29 23:13] LABS: Eosinophils % (Auto) 1.2 % (0.0-4.3); Hematocrit 30.9 % (35.5-45.6); Mean Corpuscular HGB Conc 33 % (32-34); Mean Corpuscular Hemoglobin 29 pg (28-32); Mean Corpuscular Volume 88 fl (84-94); Red Blood Count 3.53 M/mm3 (3.65-5.03); Red Cell Distribution Width 16.9 % (13.2-15.2); White Blood Count 4.8 K/mm3 (4.5-11.0)
[2017-07-29 23:22] LABS: Alanine Aminotransferase 115 units/L (7-56); Albumin 3.5 g/dL (3.9-5); Albumin/Globulin Ratio 1.1 %; Alkaline Phosphatase 214 units/L (35-129); Anion Gap 20 mmol/L; BUN/Creatinine Ratio 20; Blood Urea Nitrogen 16 mg/dL (9-20); Calcium 7.8 mg/dL (8.4-10.2); Carbon Dioxide 24 mmol/L (22-30); Chloride 91.3 mmol/L (98-107); Potassium 4.2 mmol/L (3.6-5.0); Sodium 131 mmol/L (137-145); Total Protein 6.6 g/dL (6.3-8.2)
[2017-07-29 23:25] LABS: Glucose 553 mg/dL (75-100)
[2017-07-29] MEDS ORDERED: D50W (25GM) Syringe IV PRN (23:42)
[2017-07-29] MEDS ORDERED: NovoLIN R 100 UNITS in NACL 0.9% 99 ML IV SCH (23:45)
[2017-07-30 00:03] LABS: Bilirubin,Urine NEG (Negative); Blood,Urine NEG (Negative); Ketones,Urine TR mg/dL (Negative); Leukocyte Esterase,Urine NEG (Negative); Nitrite,Urine NEG (Negative); Protein,Urine <15 mg/dL mg/dL (Negative); Urobilinogen,Urine < 2.0 mg/dL (<2.0); WBC,Urine < 1.0 /HPF (0.0-6.0)
[2017-07-30 00:13] LABS: Urine Drugs of Abuse Note Disclamer
[2017-07-30] MEDS ORDERED: NACL 0.9% 1000 ML 1,000 ML IV ONE ×2 (00:24→02:11)
[2017-07-30 00:27] LABS: Platelet Count 75 K/mm3 (140-440)
[2017-07-30 00:38] LABS: Magnesium 1.3 mg/dL (1.7-2.3); Phosphorous 3.5 mg/dL (2.5-4.5)
[2017-07-30] MEDS ORDERED: MAGNESIUM SULFATE 2GM/50ML 2 GM/50 ML BAG IV ONE ×2 (00:38→04:03)
[2017-07-30 00:39] LABS: Anion Gap 18 mmol/L; BUN/Creatinine Ratio 23; Blood Urea Nitrogen 16 mg/dL (9-20); Calcium 7.4 mg/dL (8.4-10.2); Carbon Dioxide 25 mmol/L (22-30); Chloride 92.1 mmol/L (98-107); Sodium 131 mmol/L (137-145)
[2017-07-30 00:46] LABS: Glucose 558 mg/dL (75-100)
[2017-07-30 01:47] LABS: Anion Gap 19 mmol/L; BUN/Creatinine Ratio 23; Blood Urea Nitrogen 16 mg/dL (9-20); Calcium 7.5 mg/dL (8.4-10.2); Carbon Dioxide 25 mmol/L (22-30); Chloride 95.4 mmol/L (98-107); Potassium 3.9 mmol/L (3.6-5.0); Sodium 135 mmol/L (137-145)
--- NOTE | 2017-07-30 02:02 | Cat Scan Report ---
FINAL REPORT EXAM: CT HEAD/BRAIN WO CON HISTORY: AMS TECHNIQUE: Routine axial imaging was obtained of the brain without IV contrast. There are no previous studies available for comparison. FINDINGS: There is mild to moderate generalized atrophy. There is no evidence of acute stroke or hemorrhage. The ventricular system is appropriate in size and is symmetric. The visualized sinuses are clear. The mastoid air cells are well pneumatized. The calvarium appears intact. IMPRESSION: Jprn-ed-tumcxwam generalized atrophy which is of uncertain etiology. No evidence of acute stroke or hemorrhage.
[2017-07-30 02:06] LABS: Glucose 555 mg/dL (75-100)
[2017-07-30] MEDS ORDERED: DULCOLAX PR PRN (02:28)
[2017-07-30] MEDS ORDERED: TYLENOL PO PRN (02:28)
[2017-07-30] MEDS ORDERED: ZOFRAN IV PRN (02:28)
[2017-07-30] MEDS ORDERED: MILK OF MAGNESIA PO PRN (02:28)
[2017-07-30] MEDS ORDERED: NovoLIN R 100 UNITS in NACL 0.9% 99 ML IV SCH (03:00)
--- NOTE | 2017-07-30 03:03 | XRay Report ---
FINAL REPORT EXAM: XR CHEST 1V AP HISTORY: sob TECHNIQUE: A portable semi-erect view of the chest was submitted. FINDINGS: Heart size mediastinum appear normal. The lungs are clear. Pleural fluid is not seen. There are EKG leads overlying chest wall. The bones and soft tissues do not show any acute changes. IMPRESSION: No active chest disease.
--- NOTE | 2017-07-30 03:26 | History and Physical Report ---
History of Present Illness Date of admission: 07/30/17 02:28 Chief complaint: found altered with high blood glucose History of present illness: 42 YO Male with DM, brittle DM, HCV, Nicotine Dependence, IVDA presents to ED for evaluation. Patient found down and unresponsive in a bathtub in his own feces, he was confused and had high glucose, and EMS brought him to hospital. He apparently told EMS that he wanted to harm himself. However patient states that he has no recollection of how he got to the hospital. Does not remember why he is here, does not remember having suicidal ideation or intent. He is able to tell me his name, but is unable to give any further history.. Past History Past Medical History: other ( diabetes, hepatitis, other (Nicotine Dependence, IVDA,)) Past Surgical History: tonsillectomy Social history: , IV drug use Family history: diabetes, hypertension Medications and Allergies Allergies Allergy/AdvReac Type Severity Reaction Status Date / Time No Known Allergies Allergy Verified 07/29/17 22:02 Home Medications Medication Instructions Recorded Confirmed Last Taken Type Metoclopramide [Reglan] 10 mg PO TID #90 tab 06/01/17 07/11/17 Unknown Rx Insulin Lispro [Humalog 100 10 units SQ TIDAC #30 insuln.pen 07/19/17 Unknown Rx UNITS/ML Kwikpen] Lantus Solostar 15 units SQ HS #30 07/19/17 Unknown Rx Xanax TAB 0.5 mg PO BID #14 07/19/17 Unknown Rx oxyCODONE /ACETAMINOPHEN [Percocet 2 tab PO Q6H PRN #12 tablet 07/19/17 Unknown Rx 5/325 mg] Active Meds: Active Medications Acetaminophen (Tylenol) 650 mg PO Q4H PRN PRN Reason: Pain MILD(1-3)/Fever >100.5/LEE Alprazolam (Xanax) 0.5 mg PO BID SHELIA Bisacodyl (Dulcolax) 10 mg [place] QDAY PRN PRN Reason: Constipation unrelieved by MOM Dextrose (D50w (25gm) Syringe) 0 ml IV PRN PRN PRN Reason: Hypoglycemia Enoxaparin Sodium (Lovenox) 40 mg SUB-Q QDAY SHELIA Sodium Chloride (Nacl 0.9% 1000 Ml) 1,000 mls @ 250 mls/hr IV ONCE ONE Stop: 07/30/17 06:10 Sodium Chloride (Nacl 0.9% 1000 Ml) 1,000 mls @ 150 mls/hr IV DIRECT SHELIA Insulin Human Regular 100 (units/ Sodium Chloride) 100 mls @ 1 mls/hr IV TITR SHELIA; 1 UNITS/HR PRN Reason: Protocol Magnesium Hydroxide (Milk Of Magnesia) 30 ml PO Q4H PRN PRN Reason: Constipation Morphine Sulfate (Morphine) 2 mg IV Q4H PRN PRN Reason: Pain, Moderate (4-6) Ondansetron HCl (Zofran) 4 mg IV Q8H PRN PRN Reason: N/V unrelieved by Reglan Oxycodone/Acetaminophen (Percocet 5/325) 2 tab PO Q6H PRN PRN Reason: Pain, Moderate (4-6) Review of Systems ROS unobtainable: due to mental status Exam - Constitutional Vitals: Temp Pulse Resp BP Pulse Ox 98.4 F 58 L 14 157/78 99 07/29/17 22:07 07/29/17 23:24 07/29/17 23:24 07/29/17 23:24 07/29/17 23:24 General appearance: Present: no acute distress, well-nourished, disheveled, malodorous - EENT Eyes: Present: PERRL ENT: hearing intact, clear oral mucosa - Neck Neck: Present: supple, normal ROM - Respiratory Respiratory effort: normal Respiratory: bilateral: CTA - Cardiovascular Heart Sounds: Present: S1 & S2. Absent: rub, click - Extremities Extremities: pulses symmetrical, No edema Peripheral Pulses: within normal limits - Abdominal General gastrointestinal: Present: soft, non-tender, non-distended, normal bowel sounds Male genitourinary: Present: normal - Integumentary Integumentary: Present: clear, warm, dry - Musculoskeletal Musculoskeletal: gait normal, strength equal bilaterally - Psychiatric Psychiatric: cooperative, other (confused) - Neurologic Neurologic: CNII-XII intact, other (confused) Results - Labs CBC & Chem 7: 07/29/17 21:44 07/30/17 01:10 Labs: Laboratory Last Values WBC 4.8 K/mm3 (4.5-11.0) 07/29/17 21:44 RBC 3.53 M/mm3 (3.65-5.03) L 07/29/17 21:44 Hgb 10.0 gm/dl (11.8-15.2) L 07/29/17 21:44 Hct 30.9 % (35.5-45.6) L 07/29/17 21:44 MCV 88 fl (84-94) 07/29/17 21:44 MCH 29 pg (28-32) 07/29/17 21:44 MCHC 33 % (32-34) 07/29/17 21:44 RDW 16.9 % (13.2-15.2) H 07/29/17 21:44 Plt Count 75 K/mm3 (140-440) L 07/29/17 21:44 Lymph % (Auto) 35.4 % (13.4-35.0) H 07/29/17 21:44 O'Brien % (Auto) 5.8 % (0.0-7.3) 07/29/17 21:44 Eos % (Auto) 1.2 % (0.0-4.3) 07/29/17 21:44 Baso % (Auto) 1.0 % (0.0-1.8) 07/29/17 21:44 Lymph # 1.7 K/mm3 (1.2-5.4) 07/29/17 21:44 O'Brien # 0.3 K/mm3 (0.0-0.8) 07/29/17 21:44 Eos # 0.1 K/mm3 (0.0-0.4) 07/29/17 21:44 Baso # 0.0 K/mm3 (0.0-0.1) 07/29/17 21:44 Seg Neutrophils % 56.6 % (40.0-70.0) 07/29/17 21:44 Seg Neutrophils # 2.7 K/mm3 (1.8-7.7) 07/29/17 21:44 VBG pH 7.305 (7.320-7.420) L 07/29/17 21:44 Sodium 135 mmol/L (137-145) L 07/30/17 01:10 Potassium 3.9 mmol/L (3.6-5.0) 07/30/17 01:10 Chloride 95.4 mmol/L (98-107) L 07/30/17 01:10 Carbon Dioxide 25 mmol/L (22-30) 07/30/17 01:10 Anion Gap 19 mmol/L 07/30/17 01:10 BUN 16 mg/dL (9-20) 07/30/17 01:10 Creatinine 0.7 mg/dL (0.8-1.5) L 07/30/17 01:10 Estimated GFR > 60 ml/min 07/30/17 01:10 BUN/Creatinine Ratio 23 % 07/30/17 01:10 Glucose 555 mg/dL (75-100) H* 07/30/17 01:10 POC Glucose 393 (70-105) H 07/30/17 02:27 Lactic Acid 0.90 mmol/L (0.7-2.0) 07/30/17 00:10 Calcium 7.5 mg/dL (8.4-10.2) L 07/30/17 01:10 Phosphorus 3.50 mg/dL (2.5-4.5) 07/30/17 00:02 Magnesium 1.30 mg/dL (1.7-2.3) L 07/30/17 00:02 Total Bilirubin 0.20 mg/dL (0.1-1.2) 07/29/17 21:44 AST 278 units/L (5-40) H 07/29/17 21:44 ALT 115 units/L (7-56) H 07/29/17 21:44 Alkaline Phosphatase 214 units/L (35-129) H 07/29/17 21:44 Ammonia 33.0 umol/L (25-60) 07/30/17 01:10 Total Protein 6.6 g/dL (6.3-8.2) 07/29/17 21:44 Albumin 3.5 g/dL (3.9-5) L 07/29/17 21:44 Albumin/Globulin Ratio 1.1 % 07/29/17 21:44 TSH 2.760 mlU/mL (0.270-4.200) 07/29/17 21:44 Urine Color Red (Yellow) 07/29/17 23:26 Urine Turbidity Clear (Clear) 07/29/17 23:26 Urine pH 6.0 (5.0-7.0) 07/29/17 23:26 Ur Specific [place] 1.014 (1.003-1.030) 07/29/17 23: Urine Protein <15 mg/dl mg/dL (Negative) 07/29/17: Urine Glucose (UA) >=500 mg/dL (Negative) 07/29/17: Urine Ketones Tr mg/dL (Negative) 07/29/17: Urine Blood Neg (Negative) 07/29/17: Urine Nitrite Neg (Negative) 07/29/17: Urine Bilirubin Neg (Negative) 07/29/17: Urine Urobilinogen < 2.0 mg/dL (<2.0) 07/29/17: Ur Leukocyte Esterase Neg (Negative) 07/29/17: Urine WBC (Auto) < 1.0 /HPF (0.0-6.0) 07/29/17: Urine RBC (Auto) 1.0 /HPF (0.0-6.0) 07/29/17: Salicylates < 0.3 mg/dL (2.8-20.0) L 07/29/17 21:44 Urine Opiates Screen Presumptive negative 07/30/17 00:01 Urine Methadone Screen Presumptive negative 07/30/17 00:01 Acetaminophen < 15.0 ug/mL (10.0-30.0) 07/29/17 21:44 Ur Barbiturates Screen Presumptive negative 07/30/17 00:01 Ur Phencyclidine Scrn Presumptive negative 07/30/17 00:01 Ur Amphetamines Screen Presumptive negative 07/30/17 00:01 U Benzodiazepines Scrn Presumptive negative 07/30/17 00:01 Urine Cocaine Screen Presumptive negative 07/30/17 00:01 U Marijuana (THC) Screen Presumptive negative 07/30/17 00:01 Drugs of Abuse Note Disclamer 07/30/17 00:01 Plasma/Serum Alcohol < 0.01 gm% (0-0.07) 07/29/17 21:44 - Imaging and Cardiology Chest x-ray: image reviewed (no infiltrate) CT Scan - head: image reviewed (no acute findings) Assessment and Plan Assessment and plan: 42-year-old man with past medical history of polysubstance abuse. IV drug abuse , brittle diabetes. He was recently admitted to the hospital for DKA. Patient presents with confusion, altered mental status and hyperglycemia. Hyperglycemic nonketotic coma Has decided on insulin drip and IV fluids. Admit to ICU Polysubstance abuse UDS was negative. Suicide ideation? Patient has been placed on 1013, mental health consults Metabolic encephalopathy Most likely due to hyperglycemia, infection workup so far negative which included UA and chest x-ray Treat underlying cause an insulin drip. Thrombocytopenia Platelet count is 75. We'll send HIV antibody and wanting to take that closely Critical care time 35 minutes VTE prophylaxis?: Chemical Plan of care discussed with patient/family: Yes
[2017-07-30] MEDS ORDERED: D50W (25GM) Vial 0 ML IV ONE (06:42)
[2017-07-30 06:49] LABS: Anion Gap 19 mmol/L; BUN/Creatinine Ratio 26; Blood Urea Nitrogen 13 mg/dL (9-20); Calcium 7.5 mg/dL (8.4-10.2); Carbon Dioxide 26 mmol/L (22-30); Chloride 102.4 mmol/L (98-107); Glucose 50 mg/dL (75-100); Potassium 3.3 mmol/L (3.6-5.0); Sodium 144 mmol/L (137-145)
[2017-07-30] MEDS ORDERED: D5W/0.45% NACL/KCL 20 MEQ 20 MEQ/1,000 ML BAG IV SCH (07:00)
[2017-07-30] MEDS: MORPHINE IV PRN ×2 (07:03→19:34)
[2017-07-30 08:20] LABS: Anion Gap 21 mmol/L; BUN/Creatinine Ratio 22; Blood Urea Nitrogen 13 mg/dL (9-20); Calcium 7.3 mg/dL (8.4-10.2); Carbon Dioxide 21 mmol/L (22-30); Chloride 102.2 mmol/L (98-107); Glucose 96 mg/dL (75-100); Potassium 3.9 mmol/L (3.6-5.0); Sodium 140 mmol/L (137-145)
[2017-07-30] MEDS ORDERED: MAGNESIUM SULFATE IV ONE (08:49)
[2017-07-30] MEDS ORDERED: MAGNESIUM SULFATE 4GM/100ML 4 GM/100 ML BAG IV ONE (10:00)
[2017-07-30] MEDS: XANAX PO SCH ×2 (11:00→23:12)
[2017-07-30] MEDS: LOVENOX SUB-Q SCH (11:00)
--- NOTE | 2017-07-30 12:10 | Event Note ---
Date: 07/30/17 pt seen and examined. 42 y/o male presented with DKA, apparent suicide attempt and altered mental status. Patient is currently on 1013 with sitter. Anion Gap has closed and will be transfer to [facility]. Patient is awaiting a sitter. stooped insulin drip this am. Placed on ADA diet, long acting insulin and SSI coverage.
[2017-07-30] MEDS: LEVEMIR SUB-Q SCH ×2 (13:17→21:30)
--- NOTE | 2017-07-30 14:58 | Consultation ---
History of Present Illness - Reason for Consult Consult date: 07/30/17 DKA Requesting physician: DEMAR SMITH - History of Present Illness 42 y/o male admitted with DKA, apparent suicide attempt and altered mental status. Patient is currently a 1013. Anion Gap has closed and ready for transfer. Patient is awaiting a sitter. Past History Past Medical History: diabetes, hepatitis, other ( diabetes, hepatitis, other ( Nicotine Dependence, IVDA,)) Past Surgical History: tonsillectomy Social history: , IV drug use Family history: diabetes, hypertension Medications and Allergies Allergies Allergy/AdvReac Type Severity Reaction Status Date / Time No Known Allergies Allergy Verified 07/29/17 22:02 Home Medications Medication Instructions Recorded Confirmed Last Taken Type Metoclopramide [Reglan] 10 mg PO TID #90 tab 06/01/17 07/11/17 Unknown Rx Insulin Lispro [Humalog 100 10 units SQ TIDAC #30 insuln.pen 07/19/17 Unknown Rx UNITS/ML Kwikpen] Lantus Solostar 15 units SQ HS #30 07/19/17 Unknown Rx Xanax TAB 0.5 mg PO BID #14 07/19/17 Unknown Rx oxyCODONE /ACETAMINOPHEN [Percocet 2 tab PO Q6H PRN #12 tablet 07/19/17 Unknown Rx 5/325 mg] Active Meds: Active Medications Acetaminophen (Tylenol) 650 mg PO Q4H PRN PRN Reason: Pain MILD(1-3)/Fever >100.5/LEE Alprazolam (Xanax) 0.5 mg PO BID [facility] Last Admin: 07/30/17 11:00 Dose: 0.5 mg Bisacodyl (Dulcolax) 10 mg [place] QDAY PRN PRN Reason: Constipation unrelieved by MOM Dextrose (D50w (25gm) Syringe) 0 ml IV PRN PRN PRN Reason: Hypoglycemia Enoxaparin Sodium (Lovenox) 40 mg SUB-Q QDAY [facility] Last Admin: 07/30/17 11:00 Dose: 40 mg Sodium Chloride (Nacl 0.9% 1000 Ml) 1,000 mls @ 150 mls/hr IV DIRECT [facility] Insulin Detemir (Levemir) 5 units SUB-Q QHS [facility] Last Admin: 11/21/17 13:17 Dose: 5 units Insulin Human Regular (Novolin R) 0 units SUB-Q ACHS [facility] PRN Reason: Protocol Last Admin: 07/30/17 12:56 Dose: 6 units Magnesium Hydroxide (Milk Of Magnesia) 30 ml PO Q4H PRN PRN Reason: Constipation Morphine Sulfate (Morphine) 2 mg IV Q4H PRN PRN Reason: Pain, Moderate (4-6) Last Admin: 07/30/17 07:03 Dose: 2 mg Ondansetron HCl (Zofran) 4 mg IV Q8H PRN PRN Reason: N/V unrelieved by Reglan Oxycodone/Acetaminophen (Percocet 5/325) 2 tab PO Q6H PRN PRN Reason: Pain, Moderate (4-6) Review of Systems All systems: negative Exam - Constitutional Vitals: Temp Pulse Resp BP Pulse Ox 97.8 F 59 L 12 160/97 100 07/30/17 12:00 07/30/17 12:20 07/30/17 12:20 07/30/17 12:20 07/30/17 11:20 Results - Labs CBC & Chem 7: 07/29/17 21:44 07/30/17 07:16 Labs: Abnormal lab results 07/29/17 07/29/17 07/29/17 Range/Units 21:44 21:44 21:44 RBC 3.53 L (3.65-5.03) M/mm3 Hgb 10.0 L (11.8-15.2) gm/dl Hct 30.9 L (35.5-45.6) % RDW 16.9 H (13.2-15.2) % Plt Count 75 L (140-440) K/mm3 Lymph % (Auto) 35.4 H (13.4-35.0) % VBG pH (7.320-7.420) Sodium 131 L (137-145) mmol/L Potassium (3.6-5.0) mmol/L Chloride 91.3 L (98-107) mmol/L Carbon Dioxide (22-30) mmol/L Creatinine (0.8-1.5) mg/dL Glucose 553 H* (75-100) mg/dL POC Glucose (70-105) Hemoglobin A1c (4-6) % Calcium 7.8 L (8.4-10.2) mg/dL Magnesium 1.40 L (1.7-2.3) mg/dL AST 278 H (5-40) units/L ALT 115 H (7-56) units/L Alkaline Phosphatase 214 H (35-129) units/L Albumin 3.5 L (3.9-5) g/dL Salicylates < 0.3 L (2.8-20.0) mg/dL 07/29/17 07/29/17 07/30/17 Range/Units 21:44 21:57 00:02 RBC (3.65-5.03) M/mm3 Hgb (11.8-15.2) gm/dl Hct (35.5-45.6) % RDW (13.2-15.2) % Plt Count (140-440) K/mm3 Lymph % (Auto) (13.4-35.0) % VBG pH 7.305 L (7.320-7.420) Sodium (137-145) mmol/L Potassium (3.6-5.0) mmol/L Chloride (98-107) mmol/L Carbon Dioxide (22-30) mmol/L Creatinine (0.8-1.5) mg/dL Glucose (75-100) mg/dL POC Glucose > 500 H (70-105) Hemoglobin A1c (4-6) % Calcium (8.4-10.2) mg/dL Magnesium 1.30 L (1.7-2.3) mg/dL AST (5-40) units/L ALT (7-56) units/L Alkaline Phosphatase (35-129) units/L Albumin (3.9-5) g/dL Salicylates (2.8-20.0) mg/dL 07/30/17 07/30/17 07/30/17 Range/Units 00:03 01:10 01:15 RBC (3.65-5.03) M/mm3 Hgb (11.8-15.2) gm/dl Hct (35.5-45.6) % RDW (13.2-15.2) % Plt Count (140-440) K/mm3 Lymph % (Auto) (13.4-35.0) % VBG pH (7.320-7.420) Sodium 131 L 135 L (137-145) mmol/L Potassium (3.6-5.0) mmol/L Chloride 92.1 L 95.4 L (98-107) mmol/L Carbon Dioxide (22-30) mmol/L Creatinine 0.7 L 0.7 L (0.8-1.5) mg/dL Glucose 558 H* 555 H* (75-100) mg/dL POC Glucose > 500 H (70-105) Hemoglobin A1c (4-6) % Calcium 7.4 L 7.5 L (8.4-10.2) mg/dL Magnesium (1.7-2.3) mg/dL AST (5-40) units/L ALT (7-56) units/L Alkaline Phosphatase (35-129) units/L Albumin (3.9-5) g/dL Salicylates (2.8-20.0) mg/dL 07/30/17 07/30/17 07/30/17 Range/Units 02:27 03:46 06:11 RBC (3.65-5.03) M/mm3 Hgb (11.8-15.2) gm/dl Hct (35.5-45.6) % RDW (13.2-15.2) % Plt Count (140-440) K/mm3 Lymph % (Auto) (13.4-35.0) % VBG pH (7.320-7.420) Sodium (137-145) mmol/L Potassium 3.3 L (3.6-5.0) mmol/L Chloride (98-107) mmol/L Carbon Dioxide (22-30) mmol/L Creatinine 0.5 L (0.8-1.5) mg/dL Glucose 50 L (75-100) mg/dL POC Glucose 393 H 194 H (70-105) Hemoglobin A1c (4-6) % Calcium 7.5 L (8.4-10.2) mg/dL Magnesium (1.7-2.3) mg/dL AST (5-40) units/L ALT (7-56) units/L Alkaline Phosphatase (35-129) units/L Albumin (3.9-5) g/dL Salicylates (2.8-20.0) mg/dL 07/30/17 07/30/17 07/30/17 Range/Units 06:11 06:11 07:16 RBC (3.65-5.03) M/mm3 Hgb (11.8-15.2) gm/dl Hct (35.5-45.6) % RDW (13.2-15.2) % Plt Count (140-440) K/mm3 Lymph % (Auto) (13.4-35.0) % VBG pH (7.320-7.420) Sodium (137-145) mmol/L Potassium (3.6-5.0) mmol/L Chloride (98-107) mmol/L Carbon Dioxide 21 L (22-30) mmol/L Creatinine 0.6 L (0.8-1.5) mg/dL Glucose (75-100) mg/dL POC Glucose 58 L (70-105) Hemoglobin A1c 9.4 H (4-6) % Calcium 7.3 L (8.4-10.2) mg/dL Magnesium (1.7-2.3) mg/dL AST (5-40) units/L ALT (7-56) units/L Alkaline Phosphatase (35-129) units/L Albumin (3.9-5) g/dL Salicylates (2.8-20.0) mg/dL - Imaging and Cardiology Chest x-ray: image reviewed (clear) CT Scan - head: report reviewed Assessment and Plan 42 y/o male with DKA, resolved but currently a 1013 secondary to suicidal ideation after being found down in bathtub, unresponsive in his own feces. 1. Long acting insulin, feed patient, needs only plastic silverware 2. Suggest Neuro consult given atrophy found on recent Head CT and changes in mental state. He has been admitted with altered mental status before, even requiring intubation 3. Follow up psych recs 4. Will sign off once patient is transferred out of ICU
[2017-07-30 16:15] LABS: Anion Gap 22 mmol/L; BUN/Creatinine Ratio 22; Blood Urea Nitrogen 11 mg/dL (9-20); Calcium 7.5 mg/dL (8.4-10.2); Carbon Dioxide 21 mmol/L (22-30); Chloride 100.2 mmol/L (98-107); Glucose 149 mg/dL (75-100); Potassium 4.1 mmol/L (3.6-5.0); Sodium 139 mmol/L (137-145)
[2017-07-30] MEDS: D50W (25GM) Vial IV PRN (17:35)
[2017-07-30 23:13] LABS: BUN/Creatinine Ratio 18; Blood Urea Nitrogen 9 mg/dL (9-20); Calcium 6.9 mg/dL (8.4-10.2); Carbon Dioxide 22 mmol/L (22-30); Chloride 103.9 mmol/L (98-107); Glucose 122 mg/dL (75-100); Sodium 138 mmol/L (137-145)
[2017-07-30 23:20] LABS: Anion Gap 17 mmol/L; Potassium 4.5 mmol/L (3.6-5.0)
[2017-07-31] MEDS: PERCOCET 5/325 PO PRN ×2 (04:14→12:54)
[2017-07-31] MEDS: XANAX PO SCH ×2 (09:27→22:58)
[2017-07-31] MEDS: LOVENOX SUB-Q SCH (09:27)
--- NOTE | 2017-07-31 16:00 | Progress Note ---
Assessment and Plan Assessment and plan: Patient is a 42-year-old man history of insulin dependent diabetes mellitus, hepatitis C, tobacco dependency and IVDA who presents with altered mental status , hyperglycemia and unresponsive state found in a bathtub in his own feces. U put on 1013 due to suicide ideations. -Suicide ideation: Mental health is following discussed with her at bedside -DKA versus Hhnc: Anion gap Closed, continue insulin -Acute metabolic encephalopathy due to above History Interval history: Patient seen and examined, no cp, sob, no SI/HI but he is mumbling. Hospitalist Physical - Physical exam Narrative exam: GEN: Chronically debilitated unkept NAD, lethargic ORIENTATED, mumbling HEENT: NCAT, EOMI, PERRL, OP Clear NECK: supple, no adenopathy, no thyromegaly, no JVD CVS/HEART: RRR, NORMAL S1S2, NO JVD, pulses present bilaterally CHEST/LUNGS: CTA B, Symmetrical chest expansion, good air entry bilaterally GI/Abdomen: soft, NTND, good bowel sounds, no guarding or rebound /Bladder: no suprapubic tenderness, no CVA or paraspinal tenderness EXT/Skin: no c/c/e, no obvious rash MSK: FROM x 4 Neuro: CN 2-12 grossly intact, doesn't follow commands Psych: Withdrawn - Constitutional Vitals: Temp Pulse Resp BP Pulse Ox 98.3 F 67 18 138/95 99 07/31/17 07:44 07/31/17 07:44 07/31/17 07:44 07/31/17 07:44 07/31/17 07:44 General appearance: Present: no acute distress, well-nourished, disheveled, malodorous Results - Labs CBC & Chem 7: 07/29/17 21:44 07/30/17 23:45 Labs: Laboratory Last Values WBC 4.8 K/mm3 (4.5-11.0) 07/29/17 21:44 RBC 3.53 M/mm3 (3.65-5.03) L 07/29/17 21:44 Hgb 10.0 gm/dl (11.8-15.2) L 07/29/17 21:44 Hct 30.9 % (35.5-45.6) L 07/29/17 21:44 MCV 88 fl (84-94) 07/29/17 21:44 MCH 29 pg (28-32) 07/29/17 21:44 MCHC 33 % (32-34) 07/29/17 21:44 RDW 16.9 % (13.2-15.2) H 07/29/17 21:44 Plt Count 75 K/mm3 (140-440) L 07/29/17 21:44 Lymph % (Auto) 35.4 % (13.4-35.0) H 07/29/17 21:44 Butts % (Auto) 5.8 % (0.0-7.3) 07/29/17 21:44 Eos % (Auto) 1.2 % (0.0-4.3) 07/29/17 21:44 Baso % (Auto) 1.0 % (0.0-1.8) 07/29/17 21:44 Lymph # 1.7 K/mm3 (1.2-5.4) 07/29/17 21:44 Butts # 0.3 K/mm3 (0.0-0.8) 07/29/17 21:44 Eos # 0.1 K/mm3 (0.0-0.4) 07/29/17 21:44 Baso # 0.0 K/mm3 (0.0-0.1) 07/29/17 21:44 Seg Neutrophils % 56.6 % (40.0-70.0) 07/29/17 21:44 Seg Neutrophils # 2.7 K/mm3 (1.8-7.7) 07/29/17 21:44 VBG pH 7.305 (7.320-7.420) L 07/29/17 21:44 Sodium 138 mmol/L (137-145) 07/30/17 23:45 Potassium 4.5 mmol/L (3.6-5.0) 07/30/17 23:45 Chloride 103.9 mmol/L (98-107) 07/30/17 23:45 Carbon Dioxide 22 mmol/L (22-30) 07/30/17 23:45 Anion Gap 17 mmol/L 07/30/17 23:45 BUN 9 mg/dL (9-20) 07/30/17 23:45 Creatinine 0.5 mg/dL (0.8-1.5) L 07/30/17 23:45 Estimated GFR > 60 ml/min 07/30/17 23:45 BUN/Creatinine Ratio 18 % 07/30/17 23:45 Glucose 122 mg/dL (75-100) H 07/30/17 23:45 POC Glucose 101 (70-105) 07/30/17 21:21 Hemoglobin A1c 9.4 % (4-6) H 07/30/17 06:11 Lactic Acid 0.90 mmol/L (0.7-2.0) 07/30/17 00:10 Calcium 6.9 mg/dL (8.4-10.2) L 07/30/17 23:45 Phosphorus 3.50 mg/dL (2.5-4.5) 07/30/17 00:02 Magnesium 1.30 mg/dL (1.7-2.3) L 07/30/17 00:02 Total Bilirubin 0.20 mg/dL (0.1-1.2) 07/29/17 21:44 AST 278 units/L (5-40) H 07/29/17 21:44 ALT 115 units/L (7-56) H 07/29/17 21:44 Alkaline Phosphatase 214 units/L (35-129) H 07/29/17 21:44 Ammonia 33.0 umol/L (25-60) 07/30/17 01:10 Total Protein 6.6 g/dL (6.3-8.2) 07/29/17 21:44 Albumin 3.5 g/dL (3.9-5) L 07/29/17 21:44 Albumin/Globulin Ratio 1.1 % 07/29/17 21:44 Vitamin B12 506.7 pg/mL (211-911) 07/30/17 10:13 Folate 15.81 ng/mL (7.3-26.0) 07/30/17 10:13 TSH 2.760 mlU/mL (0.270-4.200) 07/29/17 21:44 Urine Color Red (Yellow) 07/29/17 23:26 Urine Turbidity Clear (Clear) 07/29/17 23:26 Urine pH 6.0 (5.0-7.0) 07/29/17 23:26 Ur Specific [place] 1.014 (1.003-1.030) 07/29/17 23:26 Urine Protein <15 mg/dl mg/dL (Negative) 07/29/17: Urine Glucose (UA) >=500 mg/dL (Negative) 07/29/17: Urine Ketones Tr mg/dL (Negative) 07/29/17: Urine Blood Neg (Negative) 07/29/17: Urine Nitrite Neg (Negative) 07/29/17: Urine Bilirubin Neg (Negative) 07/29/17: Urine Urobilinogen < 2.0 mg/dL (<2.0) 07/29/17: Ur Leukocyte Esterase Neg (Negative) 07/29/17: Urine WBC (Auto) < 1.0 /HPF (0.0-6.0) 07/29/17: Urine RBC (Auto) 1.0 /HPF (0.0-6.0) 07/29/17: Salicylates < 0.3 mg/dL (2.8-20.0) L 07/29/17 21:44 Urine Opiates Screen Presumptive negative 07/30/17 00:01 Urine Methadone Screen Presumptive negative 07/30/17 00:01 Acetaminophen < 15.0 ug/mL (10.0-30.0) 07/29/17 21:44 Ur Barbiturates Screen Presumptive negative 07/30/17 00:01 Ur Phencyclidine Scrn Presumptive negative 07/30/17 00:01 Ur Amphetamines Screen Presumptive negative 07/30/17 00:01 U Benzodiazepines Scrn Presumptive negative 07/30/17 00:01 Urine Cocaine Screen Presumptive negative 07/30/17 00:01 U Marijuana (THC) Screen Presumptive negative 07/30/17 00:01 Drugs of Abuse Note Disclamer 07/30/17 00:01 Plasma/Serum Alcohol < 0.01 gm% (0-0.07) 07/29/17 21:44
[2017-07-31] MEDS: LEVEMIR SUB-Q SCH (22:54)
[2017-08-01] MEDS: D50W (25GM) Vial IV PRN (06:41)
[2017-08-01] MEDS ORDERED: D50W (25GM) Syringe IV ONE (07:21)
[2017-08-01] MEDS ORDERED: D50W (25GM) Vial IV ONE (08:00)
--- NOTE | 2017-08-01 09:20 | Consultation ---
History of Present Illness Consult date: 08/01/17 History of present illness: see my note on ther chart which is dictated spoke to health aide sitter and he is not talking or eating but is alert... no obvious seizure activity Past History Past Medical History: diabetes, hepatitis, other ( diabetes, hepatitis, other ( Nicotine Dependence, IVDA,)) Past Surgical History: tonsillectomy Social history: , IV drug use Family history: diabetes, hypertension Medications and Allergies Allergies Allergy/AdvReac Type Severity Reaction Status Date / Time No Known Allergies Allergy Verified 07/29/17 22:02 Home Medications Medication Instructions Recorded Confirmed Last Taken Type Metoclopramide [Reglan] 10 mg PO TID #90 tab 06/01/17 07/11/17 Unknown Rx Insulin Lispro [Humalog 100 10 units SQ TIDAC #30 insuln.pen 07/19/17 Unknown Rx UNITS/ML Kwikpen] Lantus Solostar 15 units SQ HS #30 07/19/17 Unknown Rx Xanax TAB 0.5 mg PO BID #14 07/19/17 Unknown Rx oxyCODONE /ACETAMINOPHEN [Percocet 2 tab PO Q6H PRN #12 tablet 07/19/17 Unknown Rx 5/325 mg] Active Meds: Active Medications Acetaminophen (Tylenol) 650 mg PO Q4H PRN PRN Reason: Pain MILD(1-3)/Fever >100.5/LEE Alprazolam (Xanax) 0.5 mg PO BID [facility] Last Admin: 07/31/17 22:58 Dose: 0.5 mg Bisacodyl (Dulcolax) 10 mg [place] QDAY PRN PRN Reason: Constipation unrelieved by MOM Dextrose (D50w (25gm) Vial) 25 gm IV PRN PRN PRN Reason: Hypoglycemia Last Admin: 08/01/17 06:41 Dose: 25 gm Enoxaparin Sodium (Lovenox) 40 mg SUB-Q QDAY [facility] Last Admin: 07/31/17 09:27 Dose: 40 mg Sodium Chloride (Nacl 0.9% 1000 Ml) 1,000 mls @ 150 mls/hr IV DIRECT [facility] Magnesium Hydroxide (Milk Of Magnesia) 30 ml PO Q4H PRN PRN Reason: Constipation Ondansetron HCl (Zofran) 4 mg IV Q8H PRN PRN Reason: N/V unrelieved by Reglan Oxycodone/Acetaminophen (Percocet 5/325) 2 tab PO Q6H PRN PRN Reason: Pain, Moderate (4-6) Last Admin: 07/31/17 12:54 Dose: 2 tab Physical Examination - Vital Signs Vital Signs: Vital Signs Pulse Pulse Ox 74 99 07/29/17 21:54 07/29/17 21:54 Results - Laboratory Findings CBC and BMP: 07/29/17 21:44 07/30/17 23:45 Abnormal Lab Findings: Abnormal Labs 07/29/17 07/29/17 07/29/17 21:44 21:44 21:44 RBC 3.53 L Hgb 10.0 L Hct 30.9 L RDW 16.9 H Plt Count 75 L Lymph % (Auto) 35.4 H VBG pH Sodium 131 L Potassium Chloride 91.3 L Carbon Dioxide Creatinine Glucose 553 H* POC Glucose Hemoglobin A1c Calcium 7.8 L Magnesium 1.40 L AST 278 H ALT 115 H Alkaline Phosphatase 214 H Albumin 3.5 L Salicylates < 0.3 L 07/29/17 07/29/17 07/30/17 21:44 21:57 00:02 RBC Hgb Hct RDW Plt Count Lymph % (Auto) VBG pH 7.305 L Sodium Potassium Chloride Carbon Dioxide Creatinine Glucose POC Glucose > 500 H Hemoglobin A1c Calcium Magnesium 1.30 L AST ALT Alkaline Phosphatase Albumin Salicylates 07/30/17 07/30/17 07/30/17 00:03 01:10 01:15 RBC Hgb Hct RDW Plt Count Lymph % (Auto) VBG pH Sodium 131 L 135 L Potassium Chloride 92.1 L 95.4 L Carbon Dioxide Creatinine 0.7 L 0.7 L Glucose 558 H* 555 H* POC Glucose > 500 H Hemoglobin A1c Calcium 7.4 L 7.5 L Magnesium AST ALT Alkaline Phosphatase Albumin Salicylates 07/30/17 07/30/17 07/30/17 02:27 03:46 05:53 RBC Hgb Hct RDW Plt Count Lymph % (Auto) VBG pH Sodium Potassium Chloride Carbon Dioxide Creatinine Glucose POC Glucose 393 H 194 H 50 L Hemoglobin A1c Calcium Magnesium AST ALT Alkaline Phosphatase Albumin Salicylates 07/30/17 07/30/17 07/30/17 06:11 06:11 06:11 RBC Hgb Hct RDW Plt Count Lymph % (Auto) VBG pH Sodium Potassium 3.3 L Chloride Carbon Dioxide Creatinine 0.5 L Glucose 50 L POC Glucose 58 L Hemoglobin A1c 9.4 H Calcium 7.5 L Magnesium AST ALT Alkaline Phosphatase Albumin Salicylates 07/30/17 07/30/17 07/30/17 07:16 11:29 15:33 RBC Hgb Hct RDW Plt Count Lymph % (Auto) VBG pH Sodium Potassium Chloride Carbon Dioxide 21 L 21 L Creatinine 0.6 L 0.5 L Glucose 149 H POC Glucose 330 H Hemoglobin A1c Calcium 7.3 L 7.5 L Magnesium AST ALT Alkaline Phosphatase Albumin Salicylates 07/30/17 07/30/17 07/31/17 17:27 23:45 22:22 RBC Hgb Hct RDW Plt Count Lymph % (Auto) VBG pH Sodium Potassium Chloride Carbon Dioxide Creatinine 0.5 L Glucose 122 H POC Glucose 49 L 394 H Hemoglobin A1c Calcium 6.9 L Magnesium AST ALT Alkaline Phosphatase Albumin Salicylates 08/01/17 08/01/17 06:25 06:59 RBC Hgb Hct RDW Plt Count Lymph % (Auto) VBG pH Sodium Potassium Chloride Carbon Dioxide Creatinine Glucose POC Glucose 47 L 165 H Hemoglobin A1c Calcium Magnesium AST ALT Alkaline Phosphatase Albumin Salicylates
--- NOTE | 2017-08-01 10:37 | Consultation ---
History of Present Illness - Reason for Consult Consult date: 08/01/17 Reason for consult: Mental Health Evaluation Requesting physician: DEMAR SMITH - Chief Complaint Chief complaint: "I don't want to talk" - History of Present Psychiatric Illness Patient is a 42-year-old man preseting to [facility] with AMS with an history of insulin dependent diabetes mellitus and hepatitis C who was found in a bathtub in his feces. Psychiatry was consulted to see patient. Today patient is calm, but uncooperative during the assessment. He refused to answer most of the questioned asked of him. When he was asked about being suicidal he stated, "No" and turned away from me. Per the sitter, she stated that patient have not been talking. Per observation, patient ate 100% of his breakfast today. Medications and Allergies Allergies Allergy/AdvReac Type Severity Reaction Status Date / Time No Known Allergies Allergy Verified 07/29/17 22:02 Home Medications Medication Instructions Recorded Confirmed Last Taken Type Metoclopramide [Reglan] 10 mg PO TID #90 tab 06/01/17 07/11/17 Unknown Rx Insulin Lispro [Humalog 100 10 units SQ TIDAC #30 insuln.pen 07/19/17 Unknown Rx UNITS/ML Kwikpen] Lantus Solostar 15 units SQ HS #30 07/19/17 Unknown Rx Xanax TAB 0.5 mg PO BID #14 07/19/17 Unknown Rx oxyCODONE /ACETAMINOPHEN [Percocet 2 tab PO Q6H PRN #12 tablet 07/19/17 Unknown Rx 5/325 mg] Active Meds: Active Medications Acetaminophen (Tylenol) 650 mg PO Q4H PRN PRN Reason: Pain MILD(1-3)/Fever >100.5/LEE Alprazolam (Xanax) 0.5 mg PO BID [facility] Last Admin: 07/31/17 22:58 Dose: 0.5 mg Bisacodyl (Dulcolax) 10 mg [place] QDAY PRN PRN Reason: Constipation unrelieved by MOM Dextrose (D50w (25gm) Vial) 25 gm IV PRN PRN PRN Reason: Hypoglycemia Last Admin: 08/01/17 06:41 Dose: 25 gm Enoxaparin Sodium (Lovenox) 40 mg SUB-Q QDAY [facility] Last Admin: 07/31/17 09:27 Dose: 40 mg Sodium Chloride (Nacl 0.9% 1000 Ml) 1,000 mls @ 150 mls/hr IV DIRECT [facility] Loperamide HCl (Imodium) 2 mg PO Q2H PRN PRN Reason: Diarrhea Magnesium Hydroxide (Milk Of Magnesia) 30 ml PO Q4H PRN PRN Reason: Constipation Ondansetron HCl (Zofran) 4 mg IV Q8H PRN PRN Reason: N/V unrelieved by Reglan Oxycodone/Acetaminophen (Percocet 5/325) 2 tab PO Q6H PRN PRN Reason: Pain, Moderate (4-6) Last Admin: 07/31/17 12:54 Dose: 2 tab Past psychiatric history - Past Medical History Past Medical History: diabetes, other (Hep C) Past Surgical History: Other (Unable to obtain) - past Psychiatric treatment and history psychiatric treatment history: Unable to obtain a psy and fam psy hx. - Social History Social history: other (Unable to obtain) Mental Status Exam - Vital signs Last Vital Signs Temp 98.4 F 07/31/17 19:52 Pulse 71 07/31/17 19:52 Resp 18 07/31/17 19:52 BP 143/92 07/31/17 19:52 Pulse Ox 98 07/31/17 19:52 - Exam Narrative exam: MSE: Appearance: calm, uncooperative Behavior: poor eye contact Speech: regular rate and tone Mood: irritated Affect: congruent to mood Thought Process: unable to assess Thought Content: denies SI's Motor Activity: lying in bed Cognition: alert Insight: unable to assess Judgment: unable to assess Results Result Diagrams: 07/29/17 21:44 07/30/17 23:45 Abnormal lab results 07/31/17 08/01/17 08/01/17 Range/Units 22:22 06:25 06:59 POC Glucose 394 H 47 L 165 H (70-105) All other labs normal. Assessment and Plan Assessment and plan: Impression: Today patient is calm, but uncooperative during the assessment. Recommendation/Plan: Continue 1013. Will reassess patient in 24 hours. Also gather collateral from family.
[2017-08-01] MEDS: LOVENOX SUB-Q SCH (10:44)
[2017-08-01] MEDS: IMODIUM PO PRN (10:44)
[2017-08-01] MEDS: XANAX PO SCH ×2 (10:44→21:59)
--- NOTE | 2017-08-01 10:59 | Progress Note ---
Assessment and Plan Assessment and plan: Patient is a 42-year-old man history of insulin dependent diabetes mellitus, hepatitis C, tobacco dependency and IVDA who presents with altered mental status , hyperglycemia and unresponsive state found in a bathtub in his own feces. U put on 1013 due to suicide ideations. -Suicide ideation: Mental health is following discussed with her at bedside -DKA versus Hhnc: Anion gap Closed, continue insulin -Acute metabolic encephalopathy due to above medically stable to go to psych facility History Interval history: Patient seen and examined, no cp, sob, no SI/HI but he is mumbling. Hospitalist Physical - Physical exam Narrative exam: GEN: Chronically debilitated unkept NAD, lethargic ORIENTATED, mumbling HEENT: NCAT, EOMI, PERRL, OP Clear NECK: supple, no adenopathy, no thyromegaly, no JVD CVS/HEART: RRR, NORMAL S1S2, NO JVD, pulses present bilaterally CHEST/LUNGS: CTA B, Symmetrical chest expansion, good air entry bilaterally GI/Abdomen: soft, NTND, good bowel sounds, no guarding or rebound /Bladder: no suprapubic tenderness, no CVA or paraspinal tenderness EXT/Skin: no c/c/e, no obvious rash MSK: FROM x 4 Neuro: CN 2-12 grossly intact, doesn't follow commands Psych: Withdrawn - Constitutional Vitals: Temp Pulse Resp BP Pulse Ox 98.4 F 71 18 143/92 98 07/31/17 19:52 07/31/17 19:52 07/31/17 19:52 07/31/17 19:52 07/31/17 19:52 General appearance: Present: no acute distress, well-nourished, disheveled, malodorous Results - Labs CBC & Chem 7: 07/29/17 21:44 07/30/17 23:45 Labs: Laboratory Last Values WBC 4.8 K/mm3 (4.5-11.0) 07/29/17 21:44 RBC 3.53 M/mm3 (3.65-5.03) L 07/29/17 21:44 Hgb 10.0 gm/dl (11.8-15.2) L 07/29/17 21:44 Hct 30.9 % (35.5-45.6) L 07/29/17 21:44 MCV 88 fl (84-94) 07/29/17 21:44 MCH 29 pg (28-32) 07/29/17 21:44 MCHC 33 % (32-34) 07/29/17 21:44 RDW 16.9 % (13.2-15.2) H 07/29/17 21:44 Plt Count 75 K/mm3 (140-440) L 07/29/17 21:44 Lymph % (Auto) 35.4 % (13.4-35.0) H 07/29/17 21:44 [place] % (Auto) 5.8 % (0.0-7.3) 07/29/17 21:44 Eos % (Auto) 1.2 % (0.0-4.3) 07/29/17 21:44 Baso % (Auto) 1.0 % (0.0-1.8) 07/29/17 21:44 Lymph # 1.7 K/mm3 (1.2-5.4) 07/29/17 21:44 Maury # 0.3 K/mm3 (0.0-0.8) 07/29/17 21:44 Eos # 0.1 K/mm3 (0.0-0.4) 07/29/17 21:44 Baso # 0.0 K/mm3 (0.0-0.1) 07/29/17 21:44 Seg Neutrophils % 56.6 % (40.0-70.0) 07/29/17 21:44 Seg Neutrophils # 2.7 K/mm3 (1.8-7.7) 07/29/17 21:44 VBG pH 7.305 (7.320-7.420) L 07/29/17 21:44 Sodium 138 mmol/L (137-145) 07/30/17 23:45 Potassium 4.5 mmol/L (3.6-5.0) 07/30/17 23:45 Chloride 103.9 mmol/L (98-107) 07/30/17 23:45 Carbon Dioxide 22 mmol/L (22-30) 07/30/17 23:45 Anion Gap 17 mmol/L 07/30/17 23:45 BUN 9 mg/dL (9-20) 07/30/17 23:45 Creatinine 0.5 mg/dL (0.8-1.5) L 07/30/17 23:45 Estimated GFR > 60 ml/min 07/30/17 23:45 BUN/Creatinine Ratio 18 % 07/30/17 23:45 Glucose 122 mg/dL (75-100) H 07/30/17 23:45 POC Glucose 165 (70-105) H 08/01/17 06:59 Hemoglobin A1c 9.4 % (4-6) H 07/30/17 06:11 Lactic Acid 0.90 mmol/L (0.7-2.0) 07/30/17 00:10 Calcium 6.9 mg/dL (8.4-10.2) L 07/30/17 23:45 Phosphorus 3.50 mg/dL (2.5-4.5) 07/30/17 00:02 Magnesium 1.30 mg/dL (1.7-2.3) L 07/30/17 00:02 Total Bilirubin 0.20 mg/dL (0.1-1.2) 07/29/17 21:44 AST 278 units/L (5-40) H 07/29/17 21:44 ALT 115 units/L (7-56) H 07/29/17 21:44 Alkaline Phosphatase 214 units/L (35-129) H 07/29/17 21:44 Ammonia 33.0 umol/L (25-60) 07/30/17 01:10 Total Protein 6.6 g/dL (6.3-8.2) 07/29/17 21:44 Albumin 3.5 g/dL (3.9-5) L 07/29/17 21:44 Albumin/Globulin Ratio 1.1 % 07/29/17 21:44 Vitamin B12 506.7 pg/mL (211-911) 07/30/17 10:13 Folate 15.81 ng/mL (7.3-26.0) 07/30/17 10:13 TSH 2.760 mlU/mL (0.270-4.200) 07/29/17 21:44 Urine Color Red (Yellow) 07/29/17 23:26 Urine Turbidity Clear (Clear) 07/29/17 23:26 Urine pH 6.0 (5.0-7.0) 07/29/17 23:26 Ur Specific [place] 1.014 (1.003-1.030) 07/29/17 23: Urine Protein <15 mg/dl mg/dL (Negative) 07/29/17: Urine Glucose (UA) >=500 mg/dL (Negative) 07/29/17: Urine Ketones Tr mg/dL (Negative) 07/29/17 23: Urine Blood Neg (Negative) 07/29/17 23: Urine Nitrite Neg (Negative) 07/29/17: Urine Bilirubin Neg (Negative) 07/29/17: Urine Urobilinogen < 2.0 mg/dL (<2.0) 07/29/17: Ur Leukocyte Esterase Neg (Negative) 07/29/17: Urine WBC (Auto) < 1.0 /HPF (0.0-6.0) 07/29/17: Urine RBC (Auto) 1.0 /HPF (0.0-6.0) 07/29/17: Salicylates < 0.3 mg/dL (2.8-20.0) L 07/29/17 21:44 Urine Opiates Screen Presumptive negative 07/30/17 00:01 Urine Methadone Screen Presumptive negative 07/30/17 00:01 Acetaminophen < 15.0 ug/mL (10.0-30.0) 07/29/17 21:44 Ur Barbiturates Screen Presumptive negative 07/30/17 00:01 Ur Phencyclidine Scrn Presumptive negative 07/30/17 00:01 Ur Amphetamines Screen Presumptive negative 07/30/17 00:01 U Benzodiazepines Scrn Presumptive negative 07/30/17 00:01 Urine Cocaine Screen Presumptive negative 07/30/17 00:01 U Marijuana (THC) Screen Presumptive negative 07/30/17 00:01 Drugs of Abuse Note Disclamer 07/30/17 00:01 Plasma/Serum Alcohol < 0.01 gm% (0-0.07) 07/29/17 21:44
--- NOTE | 2017-08-01 11:17 | Consultation ---
HISTORY OF PRESENT ILLNESS: This is a 42-year-old white male with a prior history of substance abuse, IV drug abuse, brittle diabetes, is brought to the hospital on diabetic ketoacidosis, altered mental status, hyperglycemia, nonketotic coma, is placed on IV fluids, admitted to the ICU. He had a history of polysubstance abuse, but his urinary drug screen was negative. Apparently at one point stated that he was suicidal, although that seems contradictory in the chart from reviewing it. I did speak to his mental health aide that is sitting in the [place]. He has not voiced any further suicidal ideation. We do have a history he supposedly has HIV, but antibody test is being sent off and that is being awaited, result has not yet returned. I did personally review his urinary drug screen is negative. His platelet count is 75,000. His hematocrit is 30.9%. The chemistries show a creatinine of 0.5, glucose of 122, calcium is 6.9, and his ABGs show a blood gas pH of 7.305. Other testing has not yet returned on the antibodies, his urinalysis shows a high glucose level, but there are no trace ketone bodies. PHYSICAL EXAMINATION: VITAL SIGNS: Examination of the patient reveals that his blood pressure is 138/95, O2 sats 99%, respiratory rate is 18, he is afebrile with temperature of 98.3. The patient's pulse is regular. GENERAL: He is not very cooperative, he does not speak to me or nods his head, seems to be attempting to know my questions. He does move about the bed. He moves all extremities. No tremors. No asterixis. NEUROLOGIC: Motor tone is very symmetrical. Cranial nerves are intact. Hearing is difficult to test. I cannot test his mentation, mental status as he would not answer questions. Speaking to the nurse's aide, this has been consistent with her observations that he is not speaking and refusing to eat, I am not sure the basis of this. There are no family members available. It might be worthwhile having a mental health evaluation contacting next to kin. I am not sure if the patient is having some type of psychotic episode based on the mental health disturbance. I do not think this is strictly speaking neurological, although he certainly has the background of potentially having aides and being a type 1 diabetic. These type patients notoriously can go through periods of delirium, which are very difficult to categorize and assess given their lack of communicative ability. Recommendation is to monitor him closely. I do suspect based on the description of the episode, this could have been a seizure, but I do not have confirmation that this was certainly, there are no obvious features of seizures such as he did not bite his tongue. There are no bruises or contusions about his head, neck or back or his extremities. I will follow up. JOB# [id number] JOE/NTS
[2017-08-01] MEDS: NOVOLOG SUB-Q SCH ×2 (16:45→22:09)
[2017-08-02] MEDS: PERCOCET 5/325 PO PRN ×2 (02:49→18:20)
[2017-08-02] MEDS: NOVOLOG SUB-Q SCH ×6 (08:27→21:03)
--- NOTE | 2017-08-02 09:33 | Progress Note ---
Subjective - Reason for Consult Consult date: 08/02/17 Reason for consult: Psychiatry Follow-up - Chief Complaint Chief complaint: "Patient is refusing to talk" Patient is a 42-year-old man preseting to [facility] with AMS with an history of insulin dependent diabetes mellitus and hepatitis C who was found in a bathtub in his feces. Per collateral from his mother Ms Neda Plasencia at [phone] stated that her son has a hx of "meth use." She stated that he lost his job 2 years ago and been living in his car. Per his mother she stated that the patient stated, "I hate my life and hate living like this." She stated that he isn't managing his diabetes and his life properly. When asked if she thought her son tried to kill himself, she stated, "Possibly." Upon my arrival to his room, patient was watching TV. When he was asked questions, he refused to talk. Mental Status Exam - Vital signs Last Vital Signs Temp 98.4 F 08/02/17 08:08 Pulse 68 08/02/17 08:08 Resp 18 08/02/17 08:08 BP 136/95 08/02/17 08:08 Pulse Ox 99 08/02/17 08:08 - Exam Narrative exam: MSE: Appearance: calm, uncooperative Behavior: poor eye contact Speech: regular rate and tone Mood: unable to assess Affect: flat Thought Process: unable to assess Thought Content: unable to assess Motor Activity: lying in bed Cognition: alert Insight: unable to assess Judgment: unable to assess Assessment and Plan Impression: Per collateral from his mother Ms Neda Plasencia - Hx of Substance Abuse (meth). MDD Severe Type. Today patient is calm, but uncooperative during the assessment. Possible suicidal attempt prior to his admission. Recommendation/Plan: Continue 1013 with placement to inpatient psy services. Start Zoloft 50 mg PO daily for depression. Recommend ECT at accepting inpatient psy facility.
[2017-08-02] MEDS: LOVENOX SUB-Q SCH (12:34)
[2017-08-02] MEDS: XANAX PO SCH ×2 (12:34→23:10)
[2017-08-02] MEDS ORDERED: PROzac PO SCH (13:00)
--- NOTE | 2017-08-02 13:14 | Discharge Summary ---
Providers - Providers Date of Admission: 07/30/17 02:28 Date of discharge: 08/02/17 Attending physician: KIARA SIMONS 07/30/17 03:27 Consult to Mental Health [CONS] Routine Reason For Exam: behavioral disturbance Place consult to:: [facility] Notified:: Phone number called:: [phone] Was contact made?: No Time called:: 08:54 Comment:: will call back 07/31/17 15:54 Consult to Physician [CONS] Routine Consulting Provider: FRANCESCO GUTIÉRREZ Reason For Exam: AMS, evaluated abnormal CT head Place consult to:: dr. gutiérrez Notified:: answering service Phone number called:: Was contact made?: Yes If yes, spoke with:: viet Time called:: 17:18 08/01/17 13:33 Physical Therapy Evaluation and Treat [CONS] Routine Comment: Reason For Exam: generalized weakness Primary care physician: RETURN CLERK Hospitalization Condition: Stable Hospital course: Patient is a 42-year-old man history of insulin dependent diabetes mellitus, hepatitis C, tobacco dependency and IVDA who presents with altered mental status , hyperglycemia and unresponsive state found in a bathtub in his own feces. U put on 1013 due to suicide ideations. -Suicide ideation: Mental health is following discussed with her at bedside -DKA versus Hhnc: Anion gap Closed, continue insulin -Acute metabolic encephalopathy due to above medically stable to go to psych facility Disposition: DC/TX-65 PSY HOSP/PSY UNIT Time spent for discharge: 35 minutes Core Measure Documentation - Palliative Care Palliative Care/ Comfort Measures: Not Applicable - Core Measures Any of the following diagnoses?: none - VTE Discharge Requirements Deep Vein Thrombosis/Pulmonary Embolism Present on Admission: No Has pt received <5 days of overlap therapy or INR<2.0: No Anticoagulant overlap therapy prescribed at discharge: No Contraindication No Overlap Therapy order at DC: Not Indicated Exam - Physical Exam Narrative exam: GEN: Chronically debilitated unkept NAD, lethargic ORIENTATED, mumbling HEENT: NCAT, EOMI, PERRL, OP Clear NECK: supple, no adenopathy, no thyromegaly, no JVD CVS/HEART: RRR, NORMAL S1S2, NO JVD, pulses present bilaterally CHEST/LUNGS: CTA B, Symmetrical chest expansion, good air entry bilaterally GI/Abdomen: soft, NTND, good bowel sounds, no guarding or rebound /Bladder: no suprapubic tenderness, no CVA or paraspinal tenderness EXT/Skin: no c/c/e, no obvious rash MSK: FROM x 4 Neuro: CN 2-12 grossly intact, doesn't follow commands Psych: Withdrawn - Constitutional Vitals: Temp Pulse Resp BP Pulse Ox 98.4 F 68 18 136/95 99 08/02/17 08:08 08/02/17 08:08 08/02/17 08:08 08/02/17 08:08 08/02/17 08:08 Plan Activity: other (no strenous activity until cleared by pcp) Diet: diabetic Special Instructions: record blood sugar diary Follow up with: PRIMARY CARE, [Primary Care Provider] - 3-5 Days Prescriptions: oxyCODONE /ACETAMINOPHEN [Percocet 5/325 mg] 1 tab PO Q6H PRN #30 tablet PRN Reason: Pain , Severe (7-10)
--- NOTE | 2017-08-02 13:15 | Progress Note ---
Assessment and Plan Assessment and plan: Patient is a 42-year-old man history of insulin dependent diabetes mellitus, hepatitis C, tobacco dependency and IVDA who presents with altered mental status , hyperglycemia and unresponsive state found in a bathtub in his own feces. U put on 1013 due to suicide ideations. -Suicide ideation: Mental health is following discussed with her at bedside -DKA versus Hhnc: Anion gap Closed, continue insulin -Acute metabolic encephalopathy due to above medically stable to go to psych facility History Interval history: Patient seen and examined, no cp, sob, no SI/HI but he is mumbling. Hospitalist Physical - Physical exam Narrative exam: GEN: Chronically debilitated unkept NAD, lethargic ORIENTATED, mumbling HEENT: NCAT, EOMI, PERRL, OP Clear NECK: supple, no adenopathy, no thyromegaly, no JVD CVS/HEART: RRR, NORMAL S1S2, NO JVD, pulses present bilaterally CHEST/LUNGS: CTA B, Symmetrical chest expansion, good air entry bilaterally GI/Abdomen: soft, NTND, good bowel sounds, no guarding or rebound /Bladder: no suprapubic tenderness, no CVA or paraspinal tenderness EXT/Skin: no c/c/e, no obvious rash MSK: FROM x 4 Neuro: CN 2-12 grossly intact, doesn't follow commands Psych: Withdrawn - Constitutional Vitals: Temp Pulse Resp BP Pulse Ox 98.4 F 68 18 136/95 99 08/02/17 08:08 08/02/17 08:08 08/02/17 08:08 08/02/17 08:08 08/02/17 08:08 General appearance: Present: no acute distress, well-nourished, disheveled, malodorous Results - Labs CBC & Chem 7: 07/29/17 21:44 07/30/17 23:45 Labs: Laboratory Last Values WBC 4.8 K/mm3 (4.5-11.0) 07/29/17 21:44 RBC 3.53 M/mm3 (3.65-5.03) L 07/29/17 21:44 Hgb 10.0 gm/dl (11.8-15.2) L 07/29/17 21:44 Hct 30.9 % (35.5-45.6) L 07/29/17 21:44 MCV 88 fl (84-94) 07/29/17 21:44 MCH 29 pg (28-32) 07/29/17 21:44 MCHC 33 % (32-34) 07/29/17 21:44 RDW 16.9 % (13.2-15.2) H 07/29/17 21:44 Plt Count 75 K/mm3 (140-440) L 07/29/17 21:44 Lymph % (Auto) 35.4 % (13.4-35.0) H 07/29/17 21:44 [place] % (Auto) 5.8 % (0.0-7.3) 07/29/17 21:44 Eos % (Auto) 1.2 % (0.0-4.3) 07/29/17 21:44 Baso % (Auto) 1.0 % (0.0-1.8) 07/29/17 21:44 Lymph # 1.7 K/mm3 (1.2-5.4) 07/29/17 21:44 [place] # 0.3 K/mm3 (0.0-0.8) 07/29/17 21:44 Eos # 0.1 K/mm3 (0.0-0.4) 07/29/17 21:44 Baso # 0.0 K/mm3 (0.0-0.1) 07/29/17 21:44 Seg Neutrophils % 56.6 % (40.0-70.0) 07/29/17 21:44 Seg Neutrophils # 2.7 K/mm3 (1.8-7.7) 07/29/17 21:44 VBG pH 7.305 (7.320-7.420) L 07/29/17 21:44 Sodium 138 mmol/L (137-145) 07/30/17 23:45 Potassium 4.5 mmol/L (3.6-5.0) 07/30/17 23:45 Chloride 103.9 mmol/L (98-107) 07/30/17 23:45 Carbon Dioxide 22 mmol/L (22-30) 07/30/17 23:45 Anion Gap 17 mmol/L 07/30/17 23:45 BUN 9 mg/dL (9-20) 07/30/17 23:45 Creatinine 0.5 mg/dL (0.8-1.5) L 07/30/17 23:45 Estimated GFR > 60 ml/min 07/30/17 23:45 BUN/Creatinine Ratio 18 % 07/30/17 23:45 Glucose 122 mg/dL (75-100) H 07/30/17 23:45 POC Glucose 193 (70-105) H 08/02/17 11:55 Hemoglobin A1c 9.4 % (4-6) H 07/30/17 06:11 Lactic Acid 0.90 mmol/L (0.7-2.0) 07/30/17 00:10 Calcium 6.9 mg/dL (8.4-10.2) L 07/30/17 23:45 Phosphorus 3.50 mg/dL (2.5-4.5) 07/30/17 00:02 Magnesium 1.30 mg/dL (1.7-2.3) L 07/30/17 00:02 Total Bilirubin 0.20 mg/dL (0.1-1.2) 07/29/17 21:44 AST 278 units/L (5-40) H 07/29/17 21:44 ALT 115 units/L (7-56) H 07/29/17 21:44 Alkaline Phosphatase 214 units/L (35-129) H 07/29/17 21:44 Ammonia 33.0 umol/L (25-60) 07/30/17 01:10 Total Protein 6.6 g/dL (6.3-8.2) 07/29/17 21:44 Albumin 3.5 g/dL (3.9-5) L 07/29/17 21:44 Albumin/Globulin Ratio 1.1 % 07/29/17 21:44 Vitamin B12 506.7 pg/mL (211-911) 07/30/17 10:13 Folate 15.81 ng/mL (7.3-26.0) 07/30/17 10:13 TSH 2.760 mlU/mL (0.270-4.200) 07/29/17 21:44 Urine Color Red (Yellow) 07/29/17 23:26 Urine Turbidity Clear (Clear) 07/29/17 23:26 Urine pH 6.0 (5.0-7.0) 07/29/17 23:26 Ur Specific [place] 1.014 (1.003-1.030) 07/29/17 23: Urine Protein <15 mg/dl mg/dL (Negative) 07/29/17: Urine Glucose (UA) >=500 mg/dL (Negative) 07/29/17: Urine Ketones Tr mg/dL (Negative) 07/29/17 23: Urine Blood Neg (Negative) 07/29/17 23: Urine Nitrite Neg (Negative) 07/29/17: Urine Bilirubin Neg (Negative) 07/29/17: Urine Urobilinogen < 2.0 mg/dL (<2.0) 07/29/17: Ur Leukocyte Esterase Neg (Negative) 07/29/17: Urine WBC (Auto) < 1.0 /HPF (0.0-6.0) 07/29/17: Urine RBC (Auto) 1.0 /HPF (0.0-6.0) 07/29/17: Salicylates < 0.3 mg/dL (2.8-20.0) L 07/29/17 21:44 Urine Opiates Screen Presumptive negative 07/30/17 00:01 Urine Methadone Screen Presumptive negative 07/30/17 00:01 Acetaminophen < 15.0 ug/mL (10.0-30.0) 07/29/17 21:44 Ur Barbiturates Screen Presumptive negative 07/30/17 00:01 Ur Phencyclidine Scrn Presumptive negative 07/30/17 00:01 Ur Amphetamines Screen Presumptive negative 07/30/17 00:01 U Benzodiazepines Scrn Presumptive negative 07/30/17 00:01 Urine Cocaine Screen Presumptive negative 07/30/17 00:01 U Marijuana (THC) Screen Presumptive negative 07/30/17 00:01 Drugs of Abuse Note Disclamer 07/30/17 00:01 Plasma/Serum Alcohol < 0.01 gm% (0-0.07) 07/29/17 21:44
[2017-08-02] MEDS: PROzac PO SCH (13:23)
[2017-08-02 16:49] LABS: Heparin-Induced Platelet Antib Negative (Negative); Unfractionated Heparin Negative (Negative)
[2017-08-02] MEDS: IMODIUM PO PRN (18:21)
[2017-08-02] MEDS: NACL 0.9% 1000 ML 1,000 ML IV SCH (23:01)
[2017-08-03] MEDS: LEVEMIR SUB-Q SCH ×2 (01:39→22:30)
[2017-08-03] MEDS: IMODIUM PO PRN ×3 (05:56→23:49)
[2017-08-03] MEDS: NACL 0.9% 1000 ML 1,000 ML IV SCH ×3 (05:57→22:00)
[2017-08-03] MEDS: NOVOLOG SUB-Q SCH ×7 (08:59→23:37)
[2017-08-03] MEDS: LOVENOX SUB-Q SCH (09:00)
[2017-08-03] MEDS: PROzac PO SCH (09:01)
[2017-08-03] MEDS: XANAX PO SCH ×2 (09:01→21:40)
--- NOTE | 2017-08-03 13:22 | Progress Note ---
Assessment and Plan Assessment and plan: Patient is a 42-year-old man history of insulin dependent diabetes mellitus, hepatitis C, tobacco dependency and IVDA who presents with altered mental status , hyperglycemia and unresponsive state found in a bathtub in his own feces. U put on 1013 due to suicide ideations. -Suicide ideation: Mental health is following discussed with her at bedside -DKA versus Hhnc: Anion gap Closed, continue insulin -Acute metabolic encephalopathy due to above medically stable to go to psych facility History Interval history: Patient seen and examined, no cp, sob, no SI/HI but he is mumbling. Hospitalist Physical - Physical exam Narrative exam: GEN: Chronically debilitated unkept NAD, lethargic ORIENTATED, mumbling HEENT: NCAT, EOMI, PERRL, OP Clear NECK: supple, no adenopathy, no thyromegaly, no JVD CVS/HEART: RRR, NORMAL S1S2, NO JVD, pulses present bilaterally CHEST/LUNGS: CTA B, Symmetrical chest expansion, good air entry bilaterally GI/Abdomen: soft, NTND, good bowel sounds, no guarding or rebound /Bladder: no suprapubic tenderness, no CVA or paraspinal tenderness EXT/Skin: no c/c/e, no obvious rash MSK: FROM x 4 Neuro: CN 2-12 grossly intact, doesn't follow commands Psych: Withdrawn - Constitutional Vitals: Temp Pulse Resp BP Pulse Ox 98.8 F 82 18 120/81 99 08/03/17 09:35 08/03/17 09:35 08/03/17 09:35 08/03/17 09:35 08/03/17 09:35 General appearance: Present: no acute distress, well-nourished, disheveled, malodorous Results - Labs CBC & Chem 7: 07/29/17 21:44 07/30/17 23:45 Labs: Laboratory Last Values WBC 4.8 K/mm3 (4.5-11.0) 07/29/17 21:44 RBC 3.53 M/mm3 (3.65-5.03) L 07/29/17 21:44 Hgb 10.0 gm/dl (11.8-15.2) L 07/29/17 21:44 Hct 30.9 % (35.5-45.6) L 07/29/17 21:44 MCV 88 fl (84-94) 07/29/17 21:44 MCH 29 pg (28-32) 07/29/17 21:44 MCHC 33 % (32-34) 07/29/17 21:44 RDW 16.9 % (13.2-15.2) H 07/29/17 21:44 Plt Count 75 K/mm3 (140-440) L 07/29/17 21:44 Lymph % (Auto) 35.4 % (13.4-35.0) H 07/29/17 21:44 [place] % (Auto) 5.8 % (0.0-7.3) 07/29/17 21:44 Eos % (Auto) 1.2 % (0.0-4.3) 07/29/17 21:44 Baso % (Auto) 1.0 % (0.0-1.8) 07/29/17 21:44 Lymph # 1.7 K/mm3 (1.2-5.4) 07/29/17 21:44 [place] # 0.3 K/mm3 (0.0-0.8) 07/29/17 21:44 Eos # 0.1 K/mm3 (0.0-0.4) 07/29/17 21:44 Baso # 0.0 K/mm3 (0.0-0.1) 07/29/17 21:44 Seg Neutrophils % 56.6 % (40.0-70.0) 07/29/17 21:44 Seg Neutrophils # 2.7 K/mm3 (1.8-7.7) 07/29/17 21:44 Heparin Anti-Xa, Unfract Negative (Negative) 07/30/17 06:11 VBG pH 7.305 (7.320-7.420) L 07/29/17 21:44 Sodium 138 mmol/L (137-145) 07/30/17 23:45 Potassium 4.5 mmol/L (3.6-5.0) 07/30/17 23:45 Chloride 103.9 mmol/L (98-107) 07/30/17 23:45 Carbon Dioxide 22 mmol/L (22-30) 07/30/17 23:45 Anion Gap 17 mmol/L 07/30/17 23:45 BUN 9 mg/dL (9-20) 07/30/17 23:45 Creatinine 0.5 mg/dL (0.8-1.5) L 07/30/17 23:45 Estimated GFR > 60 ml/min 07/30/17 23:45 BUN/Creatinine Ratio 18 % 07/30/17 23:45 Glucose 122 mg/dL (75-100) H 07/30/17 23:45 POC Glucose 214 (70-105) H 08/03/17 12:10 Hemoglobin A1c 9.4 % (4-6) H 07/30/17 06:11 Lactic Acid 0.90 mmol/L (0.7-2.0) 07/30/17 00:10 Calcium 6.9 mg/dL (8.4-10.2) L 07/30/17 23:45 Phosphorus 3.50 mg/dL (2.5-4.5) 07/30/17 00:02 Magnesium 1.30 mg/dL (1.7-2.3) L 07/30/17 00:02 Total Bilirubin 0.20 mg/dL (0.1-1.2) 07/29/17 21:44 AST 278 units/L (5-40) H 07/29/17 21:44 ALT 115 units/L (7-56) H 07/29/17 21:44 Alkaline Phosphatase 214 units/L (35-129) H 07/29/17 21:44 Ammonia 33.0 umol/L (25-60) 07/30/17 01:10 Total Protein 6.6 g/dL (6.3-8.2) 07/29/17 21:44 Albumin 3.5 g/dL (3.9-5) L 07/29/17 21:44 Albumin/Globulin Ratio 1.1 % 07/29/17 21:44 Vitamin B12 506.7 pg/mL (211-911) 07/30/17 10:13 Folate 15.81 ng/mL (7.3-26.0) 07/30/17 10:13 TSH 2.760 mlU/mL (0.270-4.200) 07/29/17 21:44 Urine Color Red (Yellow) 07/29/17 23:26 Urine Turbidity Clear (Clear) 07/29/17 23:26 Urine pH 6.0 (5.0-7.0) 07/29/17 23: Ur Specific [place] 1.014 (1.003-1.030) 07/29/17 23:26 Urine Protein <15 mg/dl mg/dL (Negative) 07/29/17 23: Urine Glucose (UA) >=500 mg/dL (Negative) 07/29/17 23: Urine Ketones Tr mg/dL (Negative) 07/29/17 23: Urine Blood Neg (Negative) 07/29/17 23: Urine Nitrite Neg (Negative) 07/29/17 23: Urine Bilirubin Neg (Negative) 07/29/17: Urine Urobilinogen < 2.0 mg/dL (<2.0) 07/29/17 23: Ur Leukocyte Esterase Neg (Negative) 07/29/17 23: Urine WBC (Auto) < 1.0 /HPF (0.0-6.0) 07/29/17 23: Urine RBC (Auto) 1.0 /HPF (0.0-6.0) 07/29/17 23: Salicylates < 0.3 mg/dL (2.8-20.0) L 07/29/17 21:44 Urine Opiates Screen Presumptive negative 07/30/17 00:01 Urine Methadone Screen Presumptive negative 07/30/17 00:01 Acetaminophen < 15.0 ug/mL (10.0-30.0) 07/29/17 21:44 Ur Barbiturates Screen Presumptive negative 07/30/17 00:01 Ur Phencyclidine Scrn Presumptive negative 07/30/17 00:01 Ur Amphetamines Screen Presumptive negative 07/30/17 00:01 U Benzodiazepines Scrn Presumptive negative 07/30/17 00:01 Urine Cocaine Screen Presumptive negative 07/30/17 00:01 U Marijuana (THC) Screen Presumptive negative 07/30/17 00:01 Drugs of Abuse Note Disclamer 07/30/17 00:01 Plasma/Serum Alcohol < 0.01 gm% (0-0.07) 07/29/17 21:44 Heparin-induced Plt Ab Negative (Negative) 07/30/17 06:11 UF Heparin High Dose 0 % Release 07/30/17 06:11 IVANA UFH Low Dose 0.1 0 % Release 07/30/17 06:11 IVANA UFH Low Dose 0.5 0 % Release 07/30/17 06:11
[2017-08-03 15:23] LABS: Hematocrit 29.2 % (35.5-45.6); Hemoglobin 9.6 gm/dl (11.8-15.2); Mean Corpuscular HGB Conc 33 % (32-34); Mean Corpuscular Hemoglobin 29 pg (28-32); Mean Corpuscular Volume 89 fl (84-94); Platelet Count 286 K/mm3 (140-440); Red Blood Count 3.27 M/mm3 (3.65-5.03); White Blood Count 7.5 K/mm3 (4.5-11.0)
[2017-08-03 15:39] LABS: Anion Gap 18 mmol/L; BUN/Creatinine Ratio 26; Blood Urea Nitrogen 18 mg/dL (9-20); Calcium 8.5 mg/dL (8.4-10.2); Carbon Dioxide 23 mmol/L (22-30); Chloride 102.9 mmol/L (98-107); Glucose 72 mg/dL (75-100); Potassium 4.7 mmol/L (3.6-5.0); Sodium 139 mmol/L (137-145)
--- NOTE | 2017-08-03 16:15 | Progress Note ---
Subjective - Reason for Consult Consult date: 08/03/17 Reason for consult: psychiatric follow up - Chief Complaint Chief complaint: "It hurts [to talk]" Patient is a 42-year-old man preseting to [facility] with AMS with an history of insulin dependent diabetes mellitus and hepatitis C who was found in a bathtub in his feces. He had restraints on his feet. He was in a trial of restraint free arms. He made eye contact but did not talk initially. When asked if he is choosing not to talk, he said, "it hurts." He acknowledged meth use within the past month. He smiled intermittently, appropriately. His sitter states security had to called earlier in the day because he locked himself in the bathroom, ran the water, and tried to sleep in the water. He is reportedly eating everything offered to him. Mental Status Exam - Vital signs Last Vital Signs Temp 98.8 F 08/03/17 09:35 Pulse 82 08/03/17 09:35 Resp 18 08/03/17 09:35 BP 120/81 08/03/17 09:35 Pulse Ox 99 08/03/17 09:35 - Exam Narrative exam: MSE: Appearance: calm, semi- cooperative Behavior: fair eye contact Speech: spoke to say "It hurts." Mood: unable to assess Affect: flat Thought Process: unable to assess Thought Content: unable to assess Motor Activity: lying in bed Cognition: alert Insight: unable to assess Judgment: unable to assess Assessment and Plan Impression: Hx of Substance Abuse (meth). MDD Severe Type. Today patient is calm and attempted to be cooperative during the assessment. He says it hurts to speak. Unable to determine suicidality Recommendation/Plan: Continue 1013 with placement to inpatient psy services. Consider conditions which would cause pain with speaking
[2017-08-03] MEDS: PERCOCET 5/325 PO PRN (23:49)
[2017-08-04] MEDS: PERCOCET 5/325 PO PRN ×2 (06:26→23:26)
[2017-08-04] MEDS: IMODIUM PO PRN ×2 (06:27→10:28)
[2017-08-04] MEDS: NACL 0.9% 1000 ML 1,000 ML IV SCH (06:28)
[2017-08-04] MEDS: NOVOLOG SUB-Q SCH ×7 (07:32→21:38)
--- NOTE | 2017-08-04 08:48 | Progress Note ---
Assessment and Plan Assessment and plan: Patient is a 42-year-old man history of insulin dependent diabetes mellitus, hepatitis C, tobacco dependency and IVDA who presents with altered mental status , hyperglycemia and unresponsive state found in a bathtub in his own feces. U put on 1013 due to suicide ideations. -Suicide ideation: Mental health is following discussed with her at bedside -DKA versus Hhnc: Anion gap Closed, continue insulin -Acute metabolic encephalopathy due to above medically stable to go to psych facility History Interval history: Patient seen and examined, no cp, sob, no SI/HI but he is mumbling. Hospitalist Physical - Physical exam Narrative exam: GEN: Chronically debilitated unkept NAD, lethargic ORIENTATED, mumbling HEENT: NCAT, EOMI, PERRL, OP Clear NECK: supple, no adenopathy, no thyromegaly, no JVD CVS/HEART: RRR, NORMAL S1S2, NO JVD, pulses present bilaterally CHEST/LUNGS: CTA B, Symmetrical chest expansion, good air entry bilaterally GI/Abdomen: soft, NTND, good bowel sounds, no guarding or rebound /Bladder: no suprapubic tenderness, no CVA or paraspinal tenderness EXT/Skin: no c/c/e, no obvious rash MSK: FROM x 4 Neuro: CN 2-12 grossly intact, doesn't follow commands Psych: Withdrawn - Constitutional Vitals: Temp Pulse Resp BP Pulse Ox 98.5 F 70 20 127/86 100 08/04/17 08:37 08/04/17 08:37 08/04/17 08:37 08/04/17 08:37 08/04/17 08:37 General appearance: Present: no acute distress, well-nourished, disheveled, malodorous Results - Labs CBC & Chem 7: 08/03/17 15:00 08/03/17 15:00 Labs: Laboratory Last Values WBC 7.5 K/mm3 (4.5-11.0) 08/03/17 15:00 RBC 3.27 M/mm3 (3.65-5.03) L 08/03/17 15:00 Hgb 9.6 gm/dl (11.8-15.2) L 08/03/17 15:00 Hct 29.2 % (35.5-45.6) L 08/03/17 15:00 MCV 89 fl (84-94) 08/03/17 15:00 MCH 29 pg (28-32) 08/03/17 15:00 MCHC 33 % (32-34) 08/03/17 15:00 RDW 19.0 % (13.2-15.2) H 08/03/17 15:00 Plt Count 286 K/mm3 (140-440) 08/03/17 15:00 Lymph % (Auto) 35.4 % (13.4-35.0) H 07/29/17 21:44 [place] % (Auto) 5.8 % (0.0-7.3) 07/29/17 21:44 Eos % (Auto) 1.2 % (0.0-4.3) 07/29/17 21:44 Baso % (Auto) 1.0 % (0.0-1.8) 07/29/17 21:44 Lymph # 1.7 K/mm3 (1.2-5.4) 07/29/17 21:44 [place] # 0.3 K/mm3 (0.0-0.8) 07/29/17 21:44 Eos # 0.1 K/mm3 (0.0-0.4) 07/29/17 21:44 Baso # 0.0 K/mm3 (0.0-0.1) 07/29/17 21:44 Seg Neutrophils % 56.6 % (40.0-70.0) 07/29/17 21:44 Seg Neutrophils # 2.7 K/mm3 (1.8-7.7) 07/29/17 21:44 Heparin Anti-Xa, Unfract Negative (Negative) 07/30/17 06:11 VBG pH 7.305 (7.320-7.420) L 07/29/17 21:44 Sodium 139 mmol/L (137-145) 08/03/17 15:00 Potassium 4.7 mmol/L (3.6-5.0) 08/03/17 15:00 Chloride 102.9 mmol/L (98-107) 08/03/17 15:00 Carbon Dioxide 23 mmol/L (22-30) 08/03/17 15:00 Anion Gap 18 mmol/L 08/03/17 15:00 BUN 18 mg/dL (9-20) 08/03/17 15:00 Creatinine 0.7 mg/dL (0.8-1.5) L 08/03/17 15:00 Estimated GFR > 60 ml/min 08/03/17 15:00 BUN/Creatinine Ratio 26 % 08/03/17 15:00 Glucose 72 mg/dL (75-100) L 08/03/17 15:00 POC Glucose 95 (70-105) 08/04/17 07:14 Hemoglobin A1c 9.4 % (4-6) H 07/30/17 06:11 Lactic Acid 0.90 mmol/L (0.7-2.0) 07/30/17 00:10 Calcium 8.5 mg/dL (8.4-10.2) D 08/03/17 15:00 Phosphorus 3.50 mg/dL (2.5-4.5) 07/30/17 00:02 Magnesium 1.30 mg/dL (1.7-2.3) L 07/30/17 00:02 Total Bilirubin 0.20 mg/dL (0.1-1.2) 07/29/17 21:44 AST 278 units/L (5-40) H 07/29/17 21:44 ALT 115 units/L (7-56) H 07/29/17 21:44 Alkaline Phosphatase 214 units/L (35-129) H 07/29/17 21:44 Ammonia 33.0 umol/L (25-60) 07/30/17 01:10 Total Protein 6.6 g/dL (6.3-8.2) 07/29/17 21:44 Albumin 3.5 g/dL (3.9-5) L 07/29/17 21:44 Albumin/Globulin Ratio 1.1 % 07/29/17 21:44 Vitamin B12 506.7 pg/mL (211-911) 07/30/17 10:13 Folate 15.81 ng/mL (7.3-26.0) 07/30/17 10:13 TSH 2.760 mlU/mL (0.270-4.200) 07/29/17 21:44 Urine Color Red (Yellow) 07/29/17 23:26 Urine Turbidity Clear (Clear) 07/29/17 23:26 Urine pH 6.0 (5.0-7.0) 07/29/17 23: Ur Specific [place] 1.014 (1.003-1.030) 07/29/17 23: Urine Protein <15 mg/dl mg/dL (Negative) 07/29/17 23: Urine Glucose (UA) >=500 mg/dL (Negative) 07/29/17 23: Urine Ketones Tr mg/dL (Negative) 07/29/17 23: Urine Blood Neg (Negative) 07/29/17 23: Urine Nitrite Neg (Negative) 07/29/17: Urine Bilirubin Neg (Negative) 07/29/17: Urine Urobilinogen < 2.0 mg/dL (<2.0) 07/29/17: Ur Leukocyte Esterase Neg (Negative) 07/29/17: Urine WBC (Auto) < 1.0 /HPF (0.0-6.0) 07/29/17: Urine RBC (Auto) 1.0 /HPF (0.0-6.0) 07/29/17: Salicylates < 0.3 mg/dL (2.8-20.0) L 07/29/17 21:44 Urine Opiates Screen Presumptive negative 07/30/17 00:01 Urine Methadone Screen Presumptive negative 07/30/17 00:01 Acetaminophen < 15.0 ug/mL (10.0-30.0) 07/29/17 21:44 Ur Barbiturates Screen Presumptive negative 07/30/17 00:01 Ur Phencyclidine Scrn Presumptive negative 07/30/17 00:01 Ur Amphetamines Screen Presumptive negative 07/30/17 00:01 U Benzodiazepines Scrn Presumptive negative 07/30/17 00:01 Urine Cocaine Screen Presumptive negative 07/30/17 00:01 U Marijuana (THC) Screen Presumptive negative 07/30/17 00:01 Drugs of Abuse Note Disclamer 07/30/17 00:01 Plasma/Serum Alcohol < 0.01 gm% (0-0.07) 07/29/17 21:44 Heparin-induced Plt Ab Negative (Negative) 07/30/17 06:11 UF Heparin High Dose 0 % Release 07/30/17 06:11 IVANA UFH Low Dose 0.1 0 % Release 07/30/17 06:11 IVANA UFH Low Dose 0.5 0 % Release 07/30/17 06:11
[2017-08-04] MEDS: PROzac PO SCH (10:19)
[2017-08-04] MEDS: XANAX PO SCH ×2 (10:19→21:20)
[2017-08-04] MEDS: LOVENOX SUB-Q SCH (10:19)
--- NOTE | 2017-08-04 14:25 | Progress Note ---
Subjective - Reason for Consult Consult date: 08/04/17 Reason for consult: follow up - Chief Complaint Chief complaint: "I took a bottle of Nyquil" Patient is a 42-year-old man preseting to [facility] with AMS with an history of insulin dependent diabetes mellitus and hepatitis C who was found in a bathtub in his feces. He spoke today. He says it hurts less. He says he drank a bottle of Nyquil "to go to sleep." He denies suicidal ideation. He states his last methamphetamine use was 1-2 months ago. He denies other substance use. He has diarrhea and requires frequent changes in undergarments. He says his "butt wooten." He says he is in restraints to keep from scratching himself. He denies homicidal ideation or psychotic symptoms. Mental Status Exam - Vital signs Last Vital Signs Temp 98.2 F 08/04/17 14:20 Pulse 86 08/04/17 14:20 Resp 18 08/04/17 14:20 BP 117/74 08/04/17 14:20 Pulse Ox 99 08/04/17 14:20 - Exam Narrative exam: MSE: Appearance: calm, cooperative, possible periorbital edema. Behavior: fair eye contact Speech: regular rate of rhythm Mood: irritable Affect: flat Thought Process: linear Thought Content: he denies suicidal or homicidal ideation Motor Activity: lying in bed, within normal limits Cognition: alert Insight: fair Judgment: limited Assessment and Plan Impression: Hx of Substance Abuse (meth). MDD Severe Type. Today patient is calm and was cooperative during the assessment. He drank a bottle of Nyquil. He denies this to be a suicide attempt. He says he will consider help with substance abuse but is more focused on resolved diarrhea at this time. Recommendation/Plan: Reassess the need for 1013 in 24 hours. He would benefit from PHP or rehab to address substance use disorder. The medical team will address physical complaints of diarrhea. He was recently in the hospital and risk of nosocomial infection is present.
[2017-08-04] MEDS: LEVEMIR SUB-Q SCH (21:38)
[2017-08-05] MEDS: NOVOLOG SUB-Q SCH ×7 (08:18→22:09)
[2017-08-05] MEDS: LOVENOX SUB-Q SCH (09:29)
[2017-08-05] MEDS: PROzac PO SCH (09:33)
[2017-08-05] MEDS: XANAX PO SCH ×2 (09:33→21:26)
--- NOTE | 2017-08-05 11:24 | Progress Note ---
Subjective - Reason for Consult Consult date: 08/05/17 Reason for consult: Psychiatry Follow-up - Chief Complaint Chief complaint: "Roxanne" Patient is a 42-year-old man preseting to [facility] with AMS with an history of insulin dependent diabetes mellitus and hepatitis C who was found in a bathtub in his feces. Today patient is calm, but evasive and withdrawn during the assessment. He would answer some of my questions about his prior substance use and his mental state. He denies SI/HI's and AVH's, but when asked about his plan once discharged he refused to answer. Per the staff, he is eating 100% of his meal. He denies any side effects of his medication. He did not want to discuss in detail why he locked himself in the bathroom 2 days ago. Per the note the sitter stated the patient filled the tub up with water, and wanted to "sleep" in it. Mental Status Exam - Vital signs Last Vital Signs Temp 97.6 F 08/05/17 05:11 Pulse 83 08/05/17 05:11 Resp 16 08/05/17 05:11 BP 91/50 08/05/17 05:11 Pulse Ox 100 08/05/17 05:11 - Exam Narrative exam: MSE: Appearance: calm Behavior: poor eye contact Speech: regular rate and tone Mood: withdrawn, evasive Affect: flat Thought Process: circumstantial Thought Content: denies SI/HI's and AVH's Motor Activity: lying in bed Cognition: A/O x3 Insight: variable Judgment: variable Assessment and Plan Impression: Per collateral from his mother Ms Neda Plasencia - Hx of Substance Abuse (meth). MDD Severe Type. Today patient is calm, but evasive and withdrawn during the assessment. His current behavior along with his previous actions prior to his admission does not coincide with a patient that isn't suicidal. At this time, the psychiatry team do not believe that this patient is safe to be discharge home. Recommendation/Plan: Continue 1013 with placement to inpatient psy services. Continue Prozac 20 mg PO daily for depression.
--- NOTE | 2017-08-05 13:48 | Progress Note ---
Assessment and Plan Assessment and plan: Patient is a 42-year-old man history of insulin dependent diabetes mellitus, hepatitis C, tobacco dependency and IVDA who presents with altered mental status , hyperglycemia and unresponsive state found in a bathtub in his own feces. U put on 1013 due to suicide ideations. -Suicide ideation: Mental health is following discussed with her at bedside -DKA versus Hhnc: Anion gap Closed, continue insulin -Acute metabolic encephalopathy due to above medically stable to go to psych facility History Interval history: Patient seen and examined, no cp, sob, no SI/HI but he is mumbling. Hospitalist Physical - Physical exam Narrative exam: GEN: Chronically debilitated unkept NAD, lethargic ORIENTATED, mumbling HEENT: NCAT, EOMI, PERRL, OP Clear NECK: supple, no adenopathy, no thyromegaly, no JVD CVS/HEART: RRR, NORMAL S1S2, NO JVD, pulses present bilaterally CHEST/LUNGS: CTA B, Symmetrical chest expansion, good air entry bilaterally GI/Abdomen: soft, NTND, good bowel sounds, no guarding or rebound /Bladder: no suprapubic tenderness, no CVA or paraspinal tenderness EXT/Skin: no c/c/e, no obvious rash MSK: FROM x 4 Neuro: CN 2-12 grossly intact, doesn't follow commands Psych: Withdrawn - Constitutional Vitals: Temp Pulse Resp BP Pulse Ox 97.6 F 83 16 91/50 100 08/05/17 05:11 08/05/17 05:11 08/05/17 05:11 08/05/17 05:11 08/05/17 05:11 General appearance: Present: no acute distress, well-nourished, disheveled, malodorous Results - Labs CBC & Chem 7: 08/03/17 15:00 08/03/17 15:00 Labs: Laboratory Last Values WBC 7.5 K/mm3 (4.5-11.0) 08/03/17 15:00 RBC 3.27 M/mm3 (3.65-5.03) L 08/03/17 15:00 Hgb 9.6 gm/dl (11.8-15.2) L 08/03/17 15:00 Hct 29.2 % (35.5-45.6) L 08/03/17 15:00 MCV 89 fl (84-94) 08/03/17 15:00 MCH 29 pg (28-32) 08/03/17 15:00 MCHC 33 % (32-34) 08/03/17 15:00 RDW 19.0 % (13.2-15.2) H 08/03/17 15:00 Plt Count 286 K/mm3 (140-440) 08/03/17 15:00 Lymph % (Auto) 35.4 % (13.4-35.0) H 07/29/17 21:44 [place] % (Auto) 5.8 % (0.0-7.3) 07/29/17 21:44 Eos % (Auto) 1.2 % (0.0-4.3) 07/29/17 21:44 Baso % (Auto) 1.0 % (0.0-1.8) 07/29/17 21:44 Lymph # 1.7 K/mm3 (1.2-5.4) 07/29/17 21:44 [place] # 0.3 K/mm3 (0.0-0.8) 07/29/17 21:44 Eos # 0.1 K/mm3 (0.0-0.4) 07/29/17 21:44 Baso # 0.0 K/mm3 (0.0-0.1) 07/29/17 21:44 Seg Neutrophils % 56.6 % (40.0-70.0) 07/29/17 21:44 Seg Neutrophils # 2.7 K/mm3 (1.8-7.7) 07/29/17 21:44 Heparin Anti-Xa, Unfract Negative (Negative) 07/30/17 06:11 VBG pH 7.305 (7.320-7.420) L 07/29/17 21:44 Sodium 139 mmol/L (137-145) 08/03/17 15:00 Potassium 4.7 mmol/L (3.6-5.0) 08/03/17 15:00 Chloride 102.9 mmol/L (98-107) 08/03/17 15:00 Carbon Dioxide 23 mmol/L (22-30) 08/03/17 15:00 Anion Gap 18 mmol/L 08/03/17 15:00 BUN 18 mg/dL (9-20) 08/03/17 15:00 Creatinine 0.7 mg/dL (0.8-1.5) L 08/03/17 15:00 Estimated GFR > 60 ml/min 08/03/17 15:00 BUN/Creatinine Ratio 26 % 08/03/17 15:00 Glucose 72 mg/dL (75-100) L 08/03/17 15:00 POC Glucose 228 (70-105) H 08/05/17 12:01 Hemoglobin A1c 9.4 % (4-6) H 07/30/17 06:11 Lactic Acid 0.90 mmol/L (0.7-2.0) 07/30/17 00:10 Calcium 8.5 mg/dL (8.4-10.2) D 08/03/17 15:00 Phosphorus 3.50 mg/dL (2.5-4.5) 07/30/17 00:02 Magnesium 1.30 mg/dL (1.7-2.3) L 07/30/17 00:02 Total Bilirubin 0.20 mg/dL (0.1-1.2) 07/29/17 21:44 AST 278 units/L (5-40) H 07/29/17 21:44 ALT 115 units/L (7-56) H 07/29/17 21:44 Alkaline Phosphatase 214 units/L (35-129) H 07/29/17 21:44 Ammonia 33.0 umol/L (25-60) 07/30/17 01:10 Total Protein 6.6 g/dL (6.3-8.2) 07/29/17 21:44 Albumin 3.5 g/dL (3.9-5) L 07/29/17 21:44 Albumin/Globulin Ratio 1.1 % 07/29/17 21:44 Vitamin B12 506.7 pg/mL (211-911) 07/30/17 10:13 Folate 15.81 ng/mL (7.3-26.0) 07/30/17 10:13 TSH 2.760 mlU/mL (0.270-4.200) 07/29/17 21:44 Urine Color Red (Yellow) 07/29/17 23:26 Urine Turbidity Clear (Clear) 07/29/17 23:26 Urine pH 6.0 (5.0-7.0) 07/29/17 23: Ur Specific [place] 1.014 (1.003-1.030) 07/29/17 23: Urine Protein <15 mg/dl mg/dL (Negative) 07/29/17 23: Urine Glucose (UA) >=500 mg/dL (Negative) 07/29/17 23: Urine Ketones Tr mg/dL (Negative) 07/29/17 23: Urine Blood Neg (Negative) 07/29/17 23: Urine Nitrite Neg (Negative) 07/29/17 23: Urine Bilirubin Neg (Negative) 07/29/17: Urine Urobilinogen < 2.0 mg/dL (<2.0) 07/29/17: Ur Leukocyte Esterase Neg (Negative) 07/29/17: Urine WBC (Auto) < 1.0 /HPF (0.0-6.0) 07/29/17: Urine RBC (Auto) 1.0 /HPF (0.0-6.0) 07/29/17 23: Salicylates < 0.3 mg/dL (2.8-20.0) L 07/29/17 21:44 Urine Opiates Screen Presumptive negative 07/30/17 00:01 Urine Methadone Screen Presumptive negative 07/30/17 00:01 Acetaminophen < 15.0 ug/mL (10.0-30.0) 07/29/17 21:44 Ur Barbiturates Screen Presumptive negative 07/30/17 00:01 Ur Phencyclidine Scrn Presumptive negative 07/30/17 00:01 Ur Amphetamines Screen Presumptive negative 07/30/17 00:01 U Benzodiazepines Scrn Presumptive negative 07/30/17 00:01 Urine Cocaine Screen Presumptive negative 07/30/17 00:01 U Marijuana (THC) Screen Presumptive negative 07/30/17 00:01 Drugs of Abuse Note Disclamer 07/30/17 00:01 Plasma/Serum Alcohol < 0.01 gm% (0-0.07) 07/29/17 21:44 Heparin-induced Plt Ab Negative (Negative) 07/30/17 06:11 UF Heparin High Dose 0 % Release 07/30/17 06:11 IVANA UFH Low Dose 0.1 0 % Release 07/30/17 06:11 IVANA UFH Low Dose 0.5 0 % Release 07/30/17 06:11
[2017-08-05] MEDS: IMODIUM PO PRN (21:26)
[2017-08-05] MEDS: LEVEMIR SUB-Q SCH (22:09)
[2017-08-05] MEDS: PERCOCET 5/325 PO PRN (23:00)
[2017-08-06] MEDS: NOVOLOG SUB-Q SCH ×5 (07:30→21:47)
--- NOTE | 2017-08-06 08:13 | Discharge Summary ---
<ROLAN PENNINGTON - Last Filed: 08/22/17 11:45> Providers - Providers Date of Admission: 07/30/17 02:28 Date of discharge: 08/09/17 Attending physician: HANANE FISH MD 07/30/17 03:27 Consult to Mental Health [CONS] Routine Reason For Exam: behavioral disturbance Place consult to:: [facility] Notified:: Phone number called:: [phone] Was contact made?: No Time called:: 08:54 Comment:: will call back 07/31/17 15:54 Consult to Physician [CONS] Routine Consulting Provider: FRANCESCO GUTIÉRREZ Reason For Exam: AMS, evaluated abnormal CT head Place consult to:: dr. gutiérrez Notified:: [facility] Phone number called:: Was contact made?: Yes If yes, spoke with:: viet Time called:: 17:18 08/01/17 13:33 Physical Therapy Evaluation and Treat [CONS] Routine Comment: Reason For Exam: generalized weakness Primary care physician: COCONUT CANDY MAKER Hospitalization Reason for admission: Suicidal Ideations Condition: Stable Hospital course: Patient is a 42-year-old man history of insulin dependent diabetes mellitus, hepatitis C, tobacco dependency and IVDA who presents with altered mental status , hyperglycemia and unresponsive state found in a bathtub in his own feces. He was diagnosed with depression, Diabetes mellitus/Hyperglycemic nonketotic com, Sacral pressure ulcer unstageable, Suicidal Ideations, Polysubstance abuse, Metabolic encephalopathy, Thrombocytopenia and Diarrhea. Patient was put on 1013 due to suicide ideations. Patient presented with altered mental status due to hyperglycemia. Currently other oriented to place and person and time. Patient insulin management was adjusted. Patient was treated with IVF, antidepressants, Insulin and metformin. Patient transferred to [facility] facility upon discharge for further evaluation and treatment. Discharge diagnosis Suicidal Ideations Depression Diabetes mellitus/Hyperglycemic nonketotic com Diarrhea Sacral pressure ulcer unstageable. Metabolic encephalopathy Thrombocytopenia Disposition: DC/TX-65 PSY HOSP/PSY UNIT Time spent for discharge: 35 minutes Core Measure Documentation - Palliative Care Palliative Care/ Comfort Measures: Not Applicable - Core Measures Any of the following diagnoses?: none Exam - Constitutional Vitals: Temp Pulse Resp BP Pulse Ox 98.3 F 76 18 98/68 100 08/06/17 08:06 08/06/17 08:06 08/06/17 08:06 08/06/17 08:06 08/06/17 08:06 General appearance: Present: no acute distress, well-nourished, disheveled, malodorous - EENT Eyes: Present: PERRL ENT: hearing intact, clear oral mucosa - Neck Neck: Present: supple, normal ROM - Respiratory Respiratory effort: normal Respiratory: bilateral: CTA - Cardiovascular Heart Sounds: Present: S1 & S2. Absent: rub, click - Extremities Extremities: pulses symmetrical, No edema Peripheral Pulses: within normal limits - Abdominal General gastrointestinal: Present: soft, non-tender, non-distended, normal bowel sounds Male genitourinary: Present: deferred - Rectal Rectal Exam: deferred - Integumentary Integumentary: Present: clear (Sacral pressure ulcer), warm, dry - Musculoskeletal Musculoskeletal: gait normal, strength equal bilaterally - Psychiatric Psychiatric: depressed, other (flat affect) Plan Activity: fall precautions Weight Bearing Status: Full Weight Bearing Diet: diabetic Follow up with: PRIMARY MD APOLINAR [Primary Care Provider] - 3-5 Days Prescriptions: Insulin Detemir [Levemir] 15 units SUB-Q QHS 30 Days units Insulin Detemir [Levemir] 12 units SUB-Q QHS 30 Days units Insulin Detemir [Levemir] 12 units SUB-Q QAMDIAB 30 Days units metFORMIN [Glucophage] 850 mg PO BIDDIAB 30 Days tablet oxyCODONE /ACETAMINOPHEN [Percocet 5/325 mg] 1 tab PO Q6H PRN #30 tablet PRN Reason: Pain , Severe (7-10) <HANANE FISH - Last Filed: 08/22/17 17:45> Providers - Providers Date of Admission: 07/30/17 02:28 Attending physician: HANANE FISH MD 07/30/17 03:27 Consult to Mental Health [CONS] Routine Reason For Exam: behavioral disturbance Place consult to:: [facility] Notified:: Phone number called:: [phone] Was contact made?: No Time called:: 08:54 Comment:: will call back 07/31/17 15:54 Consult to Physician [CONS] Routine Consulting Provider: FRANCESCO GUTIÉRREZ Reason For Exam: AMS, evaluated abnormal CT head Place consult to:: dr. gutiérrez Notified:: answering service Phone number called:: Was contact made?: Yes If yes, spoke with:: viet Time called:: 17:18 08/01/17 13:33 Physical Therapy Evaluation and Treat [CONS] Routine Comment: Reason For Exam: generalized weakness 08/07/17 10:59 Consult to Wound/ET Nurse [CONS] Routine Reason For Exam: wound eval Primary care physician: COCONUT CANDY MAKER Hospitalization Hospital course: I saw and evaluated the patient. I agree with the findings and the plan of care as documented in the Nurse Practitioner's~note, with the following corrections and additions. Exam - Constitutional Vitals: Temp Pulse Resp BP Pulse Ox 98.3 F 83 20 138/84 99 08/09/17 16:12 08/09/17 16:12 08/09/17 16:12 08/09/17 16:12 08/09/17 16:12
[2017-08-06] MEDS: PROzac PO SCH (09:47)
[2017-08-06] MEDS: LOVENOX SUB-Q SCH (09:47)
[2017-08-06] MEDS: XANAX PO SCH ×2 (09:47→21:46)
--- NOTE | 2017-08-06 11:07 | Progress Note ---
Subjective - Reason for Consult Consult date: 08/06/17 Reason for consult: Psychiatry Follow-up - Chief Complaint Chief complaint: "I am tired" Patient is a 42-year-old man preseting to [facility] with AMS with an history of insulin dependent diabetes mellitus and hepatitis C who was found in a bathtub in his feces. Today patient is calm and during the assessment. He was willing to answer questions asked of him. He stated having problem initiating sleep. He stated that he has seen a psychiatrist in the past, but would not say why. He denies SI/HI's and AVH's. Per the staff, no behavioral disturbance overnight. Mental Status Exam - Vital signs Last Vital Signs Temp 98.3 F 08/06/17 08:06 Pulse 76 08/06/17 08:06 Resp 18 08/06/17 08:06 BP 98/68 08/06/17 08:06 Pulse Ox 100 08/06/17 08:06 - Exam Narrative exam: MSE: Appearance: calm Behavior: regualr eye contact Speech: regular rate and tone Mood: withdrawn Affect: flat Thought Process: circumstantial Thought Content: denies SI/HI's and AVH's Motor Activity: lying in bed Cognition: A/O x3 Insight: variable Judgment: variable Assessment and Plan Impression: Per collateral from his mother Ms Neda Plasencia - Hx of Substance Abuse (meth). MDD Severe Type. Today patient is calm, but evasive and withdrawn during the assessment. His current behavior along with his previous actions prior to his admission does not coincide with a patient that isn't suicidal. At this time, the psychiatry team do not believe that this patient is safe to be discharge home. Recommendation/Plan: Continue 1013 with placement pending at [facility]. Continue Prozac 20 mg PO daily for depression. Start Trazodone 50 mg PO HS for sleep. Discussed possible suicidality/medication induced milli with patient reference antidepressants. Also, discussed possible priapism with patient reference Trazodone.
[2017-08-06] MEDS: D50W (25GM) Vial IV PRN (11:34)
--- NOTE | 2017-08-06 15:57 | Progress Note ---
<SHAHBAZ PENNINGTONMICHAEL - Last Filed: 08/07/17 16:07> Assessment and Plan Assessment and plan: Patient is a 42-year-old man history of insulin dependent diabetes mellitus, hepatitis C, tobacco dependency and IVDA who presents with altered mental status , hyperglycemia and unresponsive state found in a bathtub in his own feces. Was put on 1013 due to suicide ideations. Suicidal Ideations Continue 1013 pending placement at [facility] as per Psych Mental Health following Depression Continue on home antidepressants meds Mental Health following Diabetes mellitus/Hyperglycemic nonketotic coma Patient had episode of hypoglycemia every morning D/C long acting HS dose Continue on metformin Accu-Chek before meals and at bedtime Sliding scale insulin/NovoLog ADA carbohydrate consistent diet Polysubstance abuse counseled Metabolic encephalopathy Resolved Patient currently alert and oriented Thrombocytopenia Resolved DVT prophylaxis Kiannax, SCDs Hospitalist Physical - Constitutional Vitals: Temp Pulse Resp BP Pulse Ox 98.3 F 76 18 98/68 100 08/06/17 08:06 08/06/17 08:06 08/06/17 08:06 08/06/17 08:06 08/06/17 08:06 General appearance: Present: no acute distress, well-nourished, disheveled, malodorous - EENT Eyes: Present: PERRL, EOM intact ENT: hearing intact, clear oral mucosa - Neck Neck: Present: supple, normal ROM - Respiratory Respiratory effort: normal Respiratory: bilateral: CTA - Cardiovascular Rhythm: regular Heart Sounds: Present: S1 & S2 - Extremities Extremities: no ischemia, pulses intact, No edema, normal temperature Peripheral Pulses: within normal limits - Abdominal General gastrointestinal: soft, non-tender, non-distended - Integumentary Integumentary: Present: clear, warm, dry - Psychiatric Psychiatric: depressed, other (flat affect) - Neurologic Neurologic: CNII-XII intact, moves all extremities - Allied Health Allied health notes reviewed: nursing Results - Labs CBC & Chem 7: 08/03/17 15:00 08/03/17 15:00 Labs: Laboratory Last Values WBC 7.5 K/mm3 (4.5-11.0) 08/03/17 15:00 RBC 3.27 M/mm3 (3.65-5.03) L 08/03/17 15:00 Hgb 9.6 gm/dl (11.8-15.2) L 08/03/17 15:00 Hct 29.2 % (35.5-45.6) L 08/03/17 15:00 MCV 89 fl (84-94) 08/03/17 15:00 MCH 29 pg (28-32) 08/03/17 15:00 MCHC 33 % (32-34) 08/03/17 15:00 RDW 19.0 % (13.2-15.2) H 08/03/17 15:00 Plt Count 286 K/mm3 (140-440) 08/03/17 15:00 Lymph % (Auto) 35.4 % (13.4-35.0) H 07/29/17 21:44 [place] % (Auto) 5.8 % (0.0-7.3) 07/29/17 21:44 Eos % (Auto) 1.2 % (0.0-4.3) 07/29/17 21:44 Baso % (Auto) 1.0 % (0.0-1.8) 07/29/17 21:44 Lymph # 1.7 K/mm3 (1.2-5.4) 07/29/17 21:44 [place] # 0.3 K/mm3 (0.0-0.8) 07/29/17 21:44 Eos # 0.1 K/mm3 (0.0-0.4) 07/29/17 21:44 Baso # 0.0 K/mm3 (0.0-0.1) 07/29/17 21:44 Seg Neutrophils % 56.6 % (40.0-70.0) 07/29/17 21:44 Seg Neutrophils # 2.7 K/mm3 (1.8-7.7) 07/29/17 21:44 Heparin Anti-Xa, Unfract Negative (Negative) 07/30/17 06:11 VBG pH 7.305 (7.320-7.420) L 07/29/17 21:44 Sodium 139 mmol/L (137-145) 08/03/17 15:00 Potassium 4.7 mmol/L (3.6-5.0) 08/03/17 15:00 Chloride 102.9 mmol/L (98-107) 08/03/17 15:00 Carbon Dioxide 23 mmol/L (22-30) 08/03/17 15:00 Anion Gap 18 mmol/L 08/03/17 15:00 BUN 18 mg/dL (9-20) 08/03/17 15:00 Creatinine 0.7 mg/dL (0.8-1.5) L 08/03/17 15:00 Estimated GFR > 60 ml/min 08/03/17 15:00 BUN/Creatinine Ratio 26 % 08/03/17 15:00 Glucose 72 mg/dL (75-100) L 08/03/17 15:00 POC Glucose 430 (70-105) H 08/06/17 04:39 Hemoglobin A1c 9.4 % (4-6) H 07/30/17 06:11 Lactic Acid 0.90 mmol/L (0.7-2.0) 07/30/17 00:10 Calcium 8.5 mg/dL (8.4-10.2) D 08/03/17 15:00 Phosphorus 3.50 mg/dL (2.5-4.5) 07/30/17 00:02 Magnesium 1.30 mg/dL (1.7-2.3) L 07/30/17 00:02 Total Bilirubin 0.20 mg/dL (0.1-1.2) 07/29/17 21:44 AST 278 units/L (5-40) H 07/29/17 21:44 ALT 115 units/L (7-56) H 07/29/17 21:44 Alkaline Phosphatase 214 units/L (35-129) H 07/29/17 21:44 Ammonia 33.0 umol/L (25-60) 07/30/17 01:10 Total Protein 6.6 g/dL (6.3-8.2) 07/29/17 21:44 Albumin 3.5 g/dL (3.9-5) L 07/29/17 21:44 Albumin/Globulin Ratio 1.1 % 07/29/17 21:44 Vitamin B12 506.7 pg/mL (211-911) 07/30/17 10:13 Folate 15.81 ng/mL (7.3-26.0) 07/30/17 10:13 TSH 2.760 mlU/mL (0.270-4.200) 07/29/17 21:44 Urine Color Red (Yellow) 07/29/17 23: Urine Turbidity Clear (Clear) 07/29/17: Urine pH 6.0 (5.0-7.0) 07/29/17: Ur Specific [place] 1.014 (1.003-1.030) 07/29/17: Urine Protein <15 mg/dl mg/dL (Negative) 07/29/17: Urine Glucose (UA) >=500 mg/dL (Negative) 07/29/17: Urine Ketones Tr mg/dL (Negative) 07/29/17 23: Urine Blood Neg (Negative) 07/29/17: Urine Nitrite Neg (Negative) 07/29/17: Urine Bilirubin Neg (Negative) 07/29/17 Urine Urobilinogen < 2.0 mg/dL (<2.0) 07/29/17: Ur Leukocyte Esterase Neg (Negative) 07/29/17: Urine WBC (Auto) < 1.0 /HPF (0.0-6.0) 07/29/17: Urine RBC (Auto) 1.0 /HPF (0.0-6.0) 07/29/17: Salicylates < 0.3 mg/dL (2.8-20.0) L 07/29/17 21:44 Urine Opiates Screen Presumptive negative 07/30/17 00:01 Urine Methadone Screen Presumptive negative 07/30/17 00:01 Acetaminophen < 15.0 ug/mL (10.0-30.0) 07/29/17 21:44 Ur Barbiturates Screen Presumptive negative 07/30/17 00:01 Ur Phencyclidine Scrn Presumptive negative 07/30/17 00:01 Ur Amphetamines Screen Presumptive negative 07/30/17 00:01 U Benzodiazepines Scrn Presumptive negative 07/30/17 00:01 Urine Cocaine Screen Presumptive negative 07/30/17 00:01 U Marijuana (THC) Screen Presumptive negative 07/30/17 00:01 Drugs of Abuse Note Disclamer 07/30/17 00:01 Plasma/Serum Alcohol < 0.01 gm% (0-0.07) 07/29/17 21:44 Heparin-induced Plt Ab Negative (Negative) 07/30/17 06:11 UF Heparin High Dose 0 % Release 07/30/17 06:11 IVANA UFH Low Dose 0.1 0 % Release 07/30/17 06:11 IVANA UFH Low Dose 0.5 0 % Release 07/30/17 06:11 <HANANE FISH - Last Filed: 08/08/17 07:41> Assessment and Plan Assessment and plan: I saw and evaluated the patient. I agree with the findings and the plan of care as documented in the Nurse Practitioner's~note, with the following corrections and additions. sacral pressure ulcer unstageable. will obtain wound care consult. History Interval history: PATIENT SEEN AND EXAMINED, VERY WITHDRAWN. Hospitalist Physical - Constitutional Vitals: Temp Pulse Resp BP Pulse Ox 98.5 F 91 H 20 112/79 99 08/07/17 00:02 08/07/17 00:02 08/07/17 00:02 08/07/17 00:02 08/07/17 00:02 - Integumentary Integumentary: Present: rash (UNSTAGABLE SCARAL DECUB) Results - Labs CBC & Chem 7: 08/03/17 15:00 08/03/17 15:00 Labs: Laboratory Last Values WBC 7.5 K/mm3 (4.5-11.0) 08/03/17 15:00 RBC 3.27 M/mm3 (3.65-5.03) L 08/03/17 15:00 Hgb 9.6 gm/dl (11.8-15.2) L 08/03/17 15:00 Hct 29.2 % (35.5-45.6) L 08/03/17 15:00 MCV 89 fl (84-94) 08/03/17 15:00 MCH 29 pg (28-32) 08/03/17 15:00 MCHC 33 % (32-34) 08/03/17 15:00 RDW 19.0 % (13.2-15.2) H 08/03/17 15:00 Plt Count 286 K/mm3 (140-440) 08/03/17 15:00 Lymph % (Auto) 35.4 % (13.4-35.0) H 07/29/17 21:44 [place] % (Auto) 5.8 % (0.0-7.3) 07/29/17 21:44 Eos % (Auto) 1.2 % (0.0-4.3) 07/29/17 21:44 Baso % (Auto) 1.0 % (0.0-1.8) 07/29/17 21:44 Lymph # 1.7 K/mm3 (1.2-5.4) 07/29/17 21:44 [place] # 0.3 K/mm3 (0.0-0.8) 07/29/17 21:44 Eos # 0.1 K/mm3 (0.0-0.4) 07/29/17 21:44 Baso # 0.0 K/mm3 (0.0-0.1) 07/29/17 21:44 Seg Neutrophils % 56.6 % (40.0-70.0) 07/29/17 21:44 Seg Neutrophils # 2.7 K/mm3 (1.8-7.7) 07/29/17 21:44 Heparin Anti-Xa, Unfract Negative (Negative) 07/30/17 06:11 VBG pH 7.305 (7.320-7.420) L 07/29/17 21:44 Sodium 139 mmol/L (137-145) 08/03/17 15:00 Potassium 4.7 mmol/L (3.6-5.0) 08/03/17 15:00 Chloride 102.9 mmol/L (98-107) 08/03/17 15:00 Carbon Dioxide 23 mmol/L (22-30) 08/03/17 15:00 Anion Gap 18 mmol/L 08/03/17 15:00 BUN 18 mg/dL (9-20) 08/03/17 15:00 Creatinine 0.7 mg/dL (0.8-1.5) L 08/03/17 15:00 Estimated GFR > 60 ml/min 08/03/17 15:00 BUN/Creatinine Ratio 26 % 08/03/17 15:00 Glucose 72 mg/dL (75-100) L 08/03/17 15:00 POC Glucose 267 (70-105) H 08/08/17 03:43 Hemoglobin A1c 9.4 % (4-6) H 07/30/17 06:11 Lactic Acid 0.90 mmol/L (0.7-2.0) 07/30/17 00:10 Calcium 8.5 mg/dL (8.4-10.2) D 08/03/17 15:00 Phosphorus 3.50 mg/dL (2.5-4.5) 07/30/17 00:02 Magnesium 1.30 mg/dL (1.7-2.3) L 07/30/17 00:02 Total Bilirubin 0.20 mg/dL (0.1-1.2) 07/29/17 21:44 AST 278 units/L (5-40) H 07/29/17 21:44 ALT 115 units/L (7-56) H 07/29/17 21:44 Alkaline Phosphatase 214 units/L (35-129) H 07/29/17 21:44 Ammonia 33.0 umol/L (25-60) 07/30/17 01:10 Total Protein 6.6 g/dL (6.3-8.2) 07/29/17 21:44 Albumin 3.5 g/dL (3.9-5) L 07/29/17 21:44 Albumin/Globulin Ratio 1.1 % 07/29/17 21:44 Vitamin B12 506.7 pg/mL (211-911) 07/30/17 10:13 Folate 15.81 ng/mL (7.3-26.0) 07/30/17 10:13 TSH 2.760 mlU/mL (0.270-4.200) 07/29/17 21:44 Urine Color Red (Yellow) 07/29/17 23:26 Urine Turbidity Clear (Clear) 07/29/17 23:26 Urine pH 6.0 (5.0-7.0) 07/29/17 23:26 Ur Specific [place] 1.014 (1.003-1.030) 07/29/17 23:26 Urine Protein <15 mg/dl mg/dL (Negative) 07/29/17 23:26 Urine Glucose (UA) >=500 mg/dL (Negative) 07/29/17 23:26 Urine Ketones Tr mg/dL (Negative) 07/29/17 23:26 Urine Blood Neg (Negative) 07/29/17 23:26 Urine Nitrite Neg (Negative) 07/29/17 23:26 Urine Bilirubin Neg (Negative) 07/29/17 23: Urine Urobilinogen < 2.0 mg/dL (<2.0) 07/29/17 23:26 Ur Leukocyte Esterase Neg (Negative) 07/29/17 23:26 Urine WBC (Auto) < 1.0 /HPF (0.0-6.0) 07/29/17 23:26 Urine RBC (Auto) 1.0 /HPF (0.0-6.0) 07/29/17 23:26 Salicylates < 0.3 mg/dL (2.8-20.0) L 07/29/17 21:44 Urine Opiates Screen Presumptive negative 07/30/17 00:01 Urine Methadone Screen Presumptive negative 07/30/17 00:01 Acetaminophen < 15.0 ug/mL (10.0-30.0) 07/29/17 21:44 Ur Barbiturates Screen Presumptive negative 07/30/17 00:01 Ur Phencyclidine Scrn Presumptive negative 07/30/17 00:01 Ur Amphetamines Screen Presumptive negative 07/30/17 00:01 U Benzodiazepines Scrn Presumptive negative 07/30/17 00:01 Urine Cocaine Screen Presumptive negative 07/30/17 00:01 U Marijuana (THC) Screen Presumptive negative 07/30/17 00:01 Drugs of Abuse Note Disclamer 07/30/17 00:01 Plasma/Serum Alcohol < 0.01 gm% (0-0.07) 07/29/17 21:44 Heparin-induced Plt Ab Negative (Negative) 07/30/17 06:11 UF Heparin High Dose 0 % Release 07/30/17 06:11 IVANA UFH Low Dose 0.1 0 % Release 07/30/17 06:11 IVANA UFH Low Dose 0.5 0 % Release 07/30/17 06:11
--- NOTE | 2017-08-06 16:31 | Event Note ---
Date: 08/06/17 Patient seen and examined, reports no new complaints. He reports that at home he is consistent with long acting insulin of 15 units at night time and 10 units of short acting before meals. He denies hx of Hypoglycemia at home, although I question his compliance. At this time nevertheless, will stop the 10 units which appears to consistently drop his blood sugar around refractive surgeon and switch him to Oral glycemic agent and maintain a sliding scale coverage.
[2017-08-06] MEDS: GLUCOPHAGE PO SCH (17:35)
[2017-08-06] MEDS: DESYREL PO SCH (21:46)
[2017-08-06] MEDS: LEVEMIR SUB-Q SCH (21:47)
[2017-08-07] MEDS: D50W (25GM) Vial IV PRN (06:20)
[2017-08-07] MEDS: NOVOLOG SUB-Q SCH (07:30)
[2017-08-07] MEDS: GLUCOPHAGE PO SCH ×2 (10:19→18:17)
[2017-08-07] MEDS: XANAX PO SCH ×2 (10:19→23:20)
[2017-08-07] MEDS: LOVENOX SUB-Q SCH (10:19)
[2017-08-07] MEDS: PROzac PO SCH (10:20)
--- NOTE | 2017-08-07 14:14 | Progress Note ---
<ADITISHAHBAZMICHAEL - Last Filed: 08/07/17 16:10> Assessment and Plan Assessment and plan: Patient is a 42-year-old man history of insulin dependent diabetes mellitus, hepatitis C, tobacco dependency and IVDA who presents with altered mental status , hyperglycemia and unresponsive state found in a bathtub in his own feces. Was put on 1013 due to suicide ideations. Suicidal Ideations Continue 1013 pending placement at [facility] as per Psych Mental Health following Depression Continue on home antidepressant pills Mental Health following Diabetes mellitus/Hyperglycemic nonketotic com Patient has episode of hypoglycemia every morning D/C long acting HS dose Continue on metformin and observe patient for 24hrs. Accu-Chek before meals and at bedtime Sliding scale insulin/NovoLog ADA carbohydrate consistent diet Polysubstance abuse Counseled Metabolic encephalopathy Resolved Thrombocytopenia Resolved DVT prophylaxis Lovenox, SCDs History Interval history: Patient denies having ain at present time. Labs and nursing notes reviewed. Hospitalist Physical - Constitutional Vitals: Temp Pulse Resp BP Pulse Ox 98.5 F 91 H 20 112/79 99 08/07/17 00:02 08/07/17 00:02 08/07/17 00:02 08/07/17 00:02 08/07/17 00:02 General appearance: Present: no acute distress, well-nourished, disheveled, malodorous, other (flat affect) - EENT Eyes: Present: PERRL ENT: hearing intact - Neck Neck: Present: supple - Respiratory Respiratory effort: normal Respiratory: bilateral: CTA - Cardiovascular Rhythm: regular Heart Sounds: Present: S1 & S2 - Abdominal General gastrointestinal: soft, non-tender - Integumentary Integumentary: Present: clear, warm, dry - Psychiatric Psychiatric: other - Neurologic Neurologic: moves all extremities - Allied Health Allied health notes reviewed: nursing Results - Labs CBC & Chem 7: 08/03/17 15:00 08/03/17 15:00 Labs: Laboratory Last Values WBC 7.5 K/mm3 (4.5-11.0) 08/03/17 15:00 RBC 3.27 M/mm3 (3.65-5.03) L 08/03/17 15:00 Hgb 9.6 gm/dl (11.8-15.2) L 08/03/17 15:00 Hct 29.2 % (35.5-45.6) L 08/03/17 15:00 MCV 89 fl (84-94) 08/03/17 15:00 MCH 29 pg (28-32) 08/03/17 15:00 MCHC 33 % (32-34) 08/03/17 15:00 RDW 19.0 % (13.2-15.2) H 08/03/17 15:00 Plt Count 286 K/mm3 (140-440) 08/03/17 15:00 Lymph % (Auto) 35.4 % (13.4-35.0) H 07/29/17 21:44 [place] % (Auto) 5.8 % (0.0-7.3) 07/29/17 21:44 Eos % (Auto) 1.2 % (0.0-4.3) 07/29/17 21:44 Baso % (Auto) 1.0 % (0.0-1.8) 07/29/17 21:44 Lymph # 1.7 K/mm3 (1.2-5.4) 07/29/17 21:44 [place] # 0.3 K/mm3 (0.0-0.8) 07/29/17 21:44 Eos # 0.1 K/mm3 (0.0-0.4) 07/29/17 21:44 Baso # 0.0 K/mm3 (0.0-0.1) 07/29/17 21:44 Seg Neutrophils % 56.6 % (40.0-70.0) 07/29/17 21:44 Seg Neutrophils # 2.7 K/mm3 (1.8-7.7) 07/29/17 21:44 Heparin Anti-Xa, Unfract Negative (Negative) 07/30/17 06:11 VBG pH 7.305 (7.320-7.420) L 07/29/17 21:44 Sodium 139 mmol/L (137-145) 08/03/17 15:00 Potassium 4.7 mmol/L (3.6-5.0) 08/03/17 15:00 Chloride 102.9 mmol/L (98-107) 08/03/17 15:00 Carbon Dioxide 23 mmol/L (22-30) 08/03/17 15:00 Anion Gap 18 mmol/L 08/03/17 15:00 BUN 18 mg/dL (9-20) 08/03/17 15:00 Creatinine 0.7 mg/dL (0.8-1.5) L 08/03/17 15:00 Estimated GFR > 60 ml/min 08/03/17 15:00 BUN/Creatinine Ratio 26 % 08/03/17 15:00 Glucose 72 mg/dL (75-100) L 08/03/17 15:00 POC Glucose 214 (70-105) H 08/07/17 11:41 Hemoglobin A1c 9.4 % (4-6) H 07/30/17 06:11 Lactic Acid 0.90 mmol/L (0.7-2.0) 07/30/17 00:10 Calcium 8.5 mg/dL (8.4-10.2) D 08/03/17 15:00 Phosphorus 3.50 mg/dL (2.5-4.5) 07/30/17 00:02 Magnesium 1.30 mg/dL (1.7-2.3) L 07/30/17 00:02 Total Bilirubin 0.20 mg/dL (0.1-1.2) 07/29/17 21:44 AST 278 units/L (5-40) H 07/29/17 21:44 ALT 115 units/L (7-56) H 07/29/17 21:44 Alkaline Phosphatase 214 units/L (35-129) H 07/29/17 21:44 Ammonia 33.0 umol/L (25-60) 07/30/17 01:10 Total Protein 6.6 g/dL (6.3-8.2) 07/29/17 21:44 Albumin 3.5 g/dL (3.9-5) L 07/29/17 21:44 Albumin/Globulin Ratio 1.1 % 07/29/17 21:44 Vitamin B12 506.7 pg/mL (211-911) 07/30/17 10:13 Folate 15.81 ng/mL (7.3-26.0) 07/30/17 10:13 TSH 2.760 mlU/mL (0.270-4.200) 07/29/17 21:44 Urine Color Red (Yellow) 07/29/17 23:26 Urine Turbidity Clear (Clear) 07/29/17 23:26 Urine pH 6.0 (5.0-7.0) 07/29/17 23: Ur Specific [place] 1.014 (1.003-1.030) 07/29/17 23: Urine Protein <15 mg/dl mg/dL (Negative) 07/29/17 23: Urine Glucose (UA) >=500 mg/dL (Negative) 07/29/17 23: Urine Ketones Tr mg/dL (Negative) 07/29/17 23: Urine Blood Neg (Negative) 07/29/17 23: Urine Nitrite Neg (Negative) 07/29/17 23: Urine Bilirubin Neg (Negative) 07/29/17: Urine Urobilinogen < 2.0 mg/dL (<2.0) 07/29/17: Ur Leukocyte Esterase Neg (Negative) 07/29/17 23: Urine WBC (Auto) < 1.0 /HPF (0.0-6.0) 07/29/17: Urine RBC (Auto) 1.0 /HPF (0.0-6.0) 07/29/17 23: Salicylates < 0.3 mg/dL (2.8-20.0) L 07/29/17 21:44 Urine Opiates Screen Presumptive negative 07/30/17 00:01 Urine Methadone Screen Presumptive negative 07/30/17 00:01 Acetaminophen < 15.0 ug/mL (10.0-30.0) 07/29/17 21:44 Ur Barbiturates Screen Presumptive negative 07/30/17 00:01 Ur Phencyclidine Scrn Presumptive negative 07/30/17 00:01 Ur Amphetamines Screen Presumptive negative 07/30/17 00:01 U Benzodiazepines Scrn Presumptive negative 07/30/17 00:01 Urine Cocaine Screen Presumptive negative 07/30/17 00:01 U Marijuana (THC) Screen Presumptive negative 07/30/17 00:01 Drugs of Abuse Note Disclamer 07/30/17 00:01 Plasma/Serum Alcohol < 0.01 gm% (0-0.07) 07/29/17 21:44 Heparin-induced Plt Ab Negative (Negative) 07/30/17 06:11 UF Heparin High Dose 0 % Release 07/30/17 06:11 IVANA UFH Low Dose 0.1 0 % Release 07/30/17 06:11 IVANA UFH Low Dose 0.5 0 % Release 07/30/17 06:11 <HANANE FISH - Last Filed: 08/08/17 07:43> Assessment and Plan Assessment and plan: I saw and evaluated the patient. I agree with the findings and the plan of care as documented in the Nurse Practitioner's~note, with the following corrections and additions. continue wound care. Awaiting placement Continue adjusting insulin to get a better range. May benefit from switching to 70/30 BUT considering patients compliance issues, may be better served adjusting lantus for better control. Hospitalist Physical - Constitutional Vitals: Temp Pulse Resp BP Pulse Ox 98.5 F 91 H 20 112/79 99 08/07/17 00:02 08/07/17 00:02 08/07/17 00:02 08/07/17 00:02 08/07/17 00:02 - Integumentary Integumentary: Present: rash (unstageable skin pressure ulcer in the sacrum) Results - Labs CBC & Chem 7: 08/03/17 15:00 08/03/17 15:00 Labs: Laboratory Last Values WBC 7.5 K/mm3 (4.5-11.0) 08/03/17 15:00 RBC 3.27 M/mm3 (3.65-5.03) L 08/03/17 15:00 Hgb 9.6 gm/dl (11.8-15.2) L 08/03/17 15:00 Hct 29.2 % (35.5-45.6) L 08/03/17 15:00 MCV 89 fl (84-94) 08/03/17 15:00 MCH 29 pg (28-32) 08/03/17 15:00 MCHC 33 % (32-34) 08/03/17 15:00 RDW 19.0 % (13.2-15.2) H 08/03/17 15:00 Plt Count 286 K/mm3 (140-440) 08/03/17 15:00 Lymph % (Auto) 35.4 % (13.4-35.0) H 07/29/17 21:44 [place] % (Auto) 5.8 % (0.0-7.3) 07/29/17 21:44 Eos % (Auto) 1.2 % (0.0-4.3) 07/29/17 21:44 Baso % (Auto) 1.0 % (0.0-1.8) 07/29/17 21:44 Lymph # 1.7 K/mm3 (1.2-5.4) 07/29/17 21:44 [place] # 0.3 K/mm3 (0.0-0.8) 07/29/17 21:44 Eos # 0.1 K/mm3 (0.0-0.4) 07/29/17 21:44 Baso # 0.0 K/mm3 (0.0-0.1) 07/29/17 21:44 Seg Neutrophils % 56.6 % (40.0-70.0) 07/29/17 21:44 Seg Neutrophils # 2.7 K/mm3 (1.8-7.7) 07/29/17 21:44 Heparin Anti-Xa, Unfract Negative (Negative) 07/30/17 06:11 VBG pH 7.305 (7.320-7.420) L 07/29/17 21:44 Sodium 139 mmol/L (137-145) 08/03/17 15:00 Potassium 4.7 mmol/L (3.6-5.0) 08/03/17 15:00 Chloride 102.9 mmol/L (98-107) 08/03/17 15:00 Carbon Dioxide 23 mmol/L (22-30) 08/03/17 15:00 Anion Gap 18 mmol/L 08/03/17 15:00 BUN 18 mg/dL (9-20) 08/03/17 15:00 Creatinine 0.7 mg/dL (0.8-1.5) L 08/03/17 15:00 Estimated GFR > 60 ml/min 08/03/17 15:00 BUN/Creatinine Ratio 26 % 08/03/17 15:00 Glucose 72 mg/dL (75-100) L 08/03/17 15:00 POC Glucose 267 (70-105) H 08/08/17 03:43 Hemoglobin A1c 9.4 % (4-6) H 07/30/17 06:11 Lactic Acid 0.90 mmol/L (0.7-2.0) 07/30/17 00:10 Calcium 8.5 mg/dL (8.4-10.2) D 08/03/17 15:00 Phosphorus 3.50 mg/dL (2.5-4.5) 07/30/17 00:02 Magnesium 1.30 mg/dL (1.7-2.3) L 07/30/17 00:02 Total Bilirubin 0.20 mg/dL (0.1-1.2) 07/29/17 21:44 AST 278 units/L (5-40) H 07/29/17 21:44 ALT 115 units/L (7-56) H 07/29/17 21:44 Alkaline Phosphatase 214 units/L (35-129) H 07/29/17 21:44 Ammonia 33.0 umol/L (25-60) 07/30/17 01:10 Total Protein 6.6 g/dL (6.3-8.2) 07/29/17 21:44 Albumin 3.5 g/dL (3.9-5) L 07/29/17 21:44 Albumin/Globulin Ratio 1.1 % 07/29/17 21:44 Vitamin B12 506.7 pg/mL (211-911) 07/30/17 10:13 Folate 15.81 ng/mL (7.3-26.0) 07/30/17 10:13 TSH 2.760 mlU/mL (0.270-4.200) 07/29/17 21:44 Urine Color Red (Yellow) 07/29/17 23:26 Urine Turbidity Clear (Clear) 07/29/17 23:26 Urine pH 6.0 (5.0-7.0) 07/29/17 23:26 Ur Specific [place] 1.014 (1.003-1.030) 07/29/17 23:26 Urine Protein <15 mg/dl mg/dL (Negative) 07/29/17 23:26 Urine Glucose (UA) >=500 mg/dL (Negative) 07/29/17 23:26 Urine Ketones Tr mg/dL (Negative) 07/29/17 23: Urine Blood Neg (Negative) 07/29/17 23:26 Urine Nitrite Neg (Negative) 07/29/17 23:26 Urine Bilirubin Neg (Negative) 07/29/17 23: Urine Urobilinogen < 2.0 mg/dL (<2.0) 07/29/17 23:26 Ur Leukocyte Esterase Neg (Negative) 07/29/17 23:26 Urine WBC (Auto) < 1.0 /HPF (0.0-6.0) 07/29/17 23:26 Urine RBC (Auto) 1.0 /HPF (0.0-6.0) 07/29/17 23:26 Salicylates < 0.3 mg/dL (2.8-20.0) L 07/29/17 21:44 Urine Opiates Screen Presumptive negative 07/30/17 00:01 Urine Methadone Screen Presumptive negative 07/30/17 00:01 Acetaminophen < 15.0 ug/mL (10.0-30.0) 07/29/17 21:44 Ur Barbiturates Screen Presumptive negative 07/30/17 00:01 Ur Phencyclidine Scrn Presumptive negative 07/30/17 00:01 Ur Amphetamines Screen Presumptive negative 07/30/17 00:01 U Benzodiazepines Scrn Presumptive negative 07/30/17 00:01 Urine Cocaine Screen Presumptive negative 07/30/17 00:01 U Marijuana (THC) Screen Presumptive negative 07/30/17 00:01 Drugs of Abuse Note Disclamer 07/30/17 00:01 Plasma/Serum Alcohol < 0.01 gm% (0-0.07) 07/29/17 21:44 Heparin-induced Plt Ab Negative (Negative) 07/30/17 06:11 UF Heparin High Dose 0 % Release 07/30/17 06:11 IVANA UFH Low Dose 0.1 0 % Release 07/30/17 06:11 IVANA UFH Low Dose 0.5 0 % Release 07/30/17 06:11
--- NOTE | 2017-08-07 15:58 | Progress Note ---
Subjective - Reason for Consult Reason for consult: DKA with recent expression of SI Mental Status Exam - Vital signs Last Vital Signs Temp 98.5 F 08/07/17 00:02 Pulse 91 H 08/07/17 00:02 Resp 20 08/07/17 00:02 BP 112/79 08/07/17 00:02 Pulse Ox 99 08/07/17 00:02 Assessment and Plan The patient was discussed with the psychosocial rehabilitation counselor team here at [facility]. We are attempting to transfer him to's [facility]; however, they have found several medical concerns that keep him from not being transferred there. As a consequence, I have asked the psychosocial rehabilitation counselor team to inquire what the specific concerns were so they can be addressed by the internal medicine team here at [facility]. I did see the patient briefly in the room; however, patient was asleep and could not be interviewed.
[2017-08-07] MEDS: DESYREL PO SCH (23:20)
[2017-08-08] MEDS: NOVOLOG SUB-Q SCH ×4 (00:04→17:49)
[2017-08-08] MEDS: LEVEMIR SUB-Q SCH (00:05)
[2017-08-08] MEDS: PERCOCET 5/325 PO PRN ×2 (03:39→17:50)
[2017-08-08] MEDS: NACL 0.9% 1000 ML 1,000 ML IV SCH ×2 (07:48→17:11)
[2017-08-08] MEDS ORDERED: LEVEMIR SUB-Q SCH ×2 (08:00→08:50)
[2017-08-08] MEDS: GLUCOPHAGE PO SCH ×2 (08:00→17:54)
--- NOTE | 2017-08-08 09:58 | Progress Note ---
Subjective - Reason for Consult Consult date: 08/08/17 Reason for consult: Psychiatry Follow-up - Chief Complaint Chief complaint: "Roxanne" Patient is a 42-year-old man preseting to [facility] with AMS with an history of insulin dependent diabetes mellitus and hepatitis C who was found in a bathtub in his feces. Today patient is calm during the assessment. He stated that he got more sleep the last 2 nights than previous nights. He was observed eating his breakfast. Patient is still withdrawn, with a flat affect. He denies SI/HI' s and AVH's. Per the staff, no behavioral disturbance overnight. He denies any side effects of his medications. Mental Status Exam - Vital signs Last Vital Signs Temp 98.1 F 08/08/17 07:41 Pulse 80 08/08/17 07:41 Resp 20 08/08/17 07:41 BP 102/68 08/08/17 07:41 Pulse Ox 99 08/08/17 07:41 - Exam Narrative exam: MSE: Appearance: calm Behavior: regular eye contact Speech: regular rate and tone Mood: withdrawn Affect: flat Thought Process: circumstantial Thought Content: denies SI/HI's and AVH's Motor Activity: lying in bed Cognition: A/O x3 Insight: variable Judgment: variable Assessment and Plan Impression: Per collateral from his mother Ms Neda Plasencia - Hx of Substance Abuse (meth). MDD Severe Type. Today patient is calm during the assessment. His current behavior along with his previous actions prior to his admission does not coincide with a patient that isn't suicidal. At this time, the psychiatry team do not believe that this patient is safe to be discharge home. Recommendation/Plan: Continue 1013. Patient is being reevaluated by [facility] for placement. Continue Prozac 20 mg PO daily for depression and continue Trazodone 50 mg PO HS for sleep. Discussed possible suicidality/medication induced milli with patient reference antidepressants. Also, discussed possible priapism with patient reference Trazodone.
[2017-08-08] MEDS: LOVENOX SUB-Q SCH (10:00)
[2017-08-08] MEDS: PROzac PO SCH (10:00)
[2017-08-08] MEDS: XANAX PO SCH ×2 (10:00→22:08)
--- NOTE | 2017-08-08 16:37 | Progress Note ---
<ROLAN PENNINGTON - Last Filed: 08/22/17 11:46> Assessment and Plan Assessment and plan: Patient is a 42-year-old man history of insulin dependent diabetes mellitus, hepatitis C, tobacco dependency and IVDA who presents with altered mental status , hyperglycemia and unresponsive state found in a bathtub in his own feces. Was put on 1013 due to suicide ideations. Suicidal Ideations Continue 1013 pending placement at [facility] as per Psych Patient medically clear, all his issue has been addressed. Mental Health following Depression Continue on home antidepressant pills Mental Health following Diabetes mellitus/Hyperglycemic nonketotic com Patient hypoglycemia in the AM improving Increased dose of metformin to 850 mg BID Continue 20 units of Levemir at HS Accu-Chek before meals and at bedtime Sliding scale insulin/NovoLog ADA carbohydrate consistent diet Diarrhea No sources of causes, most likely chronic Started on imodium Sacral pressure ulcer unstageable. Wound care consulted Polysubstance abuse Counseled Metabolic encephalopathy Resolved Thrombocytopenia Resolved DVT prophylaxis Lovenox, SCDs History Interval history: Patient has an episode of diarrhea; denies having pain or discomfort. Labs and nursing notes reviewed. Hospitalist Physical - Constitutional Vitals: Temp Pulse Resp BP Pulse Ox 98.1 F 80 20 102/68 99 08/08/17 07:41 08/08/17 07:41 08/08/17 07:41 08/08/17 07:41 08/08/17 07:41 General appearance: Present: no acute distress, well-nourished, disheveled, malodorous, other (flat affect) - EENT Eyes: Present: PERRL ENT: hearing intact - Neck Neck: Present: supple - Respiratory Respiratory effort: normal Respiratory: bilateral: CTA - Cardiovascular Rhythm: regular Heart Sounds: Present: S1 & S2 - Abdominal General gastrointestinal: soft, non-tender - Integumentary Integumentary: Present: clear (Sacral pressure ulcer), warm, dry - Psychiatric Psychiatric: depressed - Neurologic Neurologic: moves all extremities - Allied Health Allied health notes reviewed: nursing Results - Labs CBC & Chem 7: 08/03/17 15:00 08/03/17 15:00 Labs: Laboratory Last Values WBC 7.5 K/mm3 (4.5-11.0) 08/03/17 15:00 RBC 3.27 M/mm3 (3.65-5.03) L 08/03/17 15:00 Hgb 9.6 gm/dl (11.8-15.2) L 08/03/17 15:00 Hct 29.2 % (35.5-45.6) L 08/03/17 15:00 MCV 89 fl (84-94) 08/03/17 15:00 MCH 29 pg (28-32) 08/03/17 15:00 MCHC 33 % (32-34) 08/03/17 15:00 RDW 19.0 % (13.2-15.2) H 08/03/17 15:00 Plt Count 286 K/mm3 (140-440) 08/03/17 15:00 Lymph % (Auto) 35.4 % (13.4-35.0) H 07/29/17 21:44 [place] % (Auto) 5.8 % (0.0-7.3) 07/29/17 21:44 Eos % (Auto) 1.2 % (0.0-4.3) 07/29/17 21:44 Baso % (Auto) 1.0 % (0.0-1.8) 07/29/17 21:44 Lymph # 1.7 K/mm3 (1.2-5.4) 07/29/17 21:44 [place] # 0.3 K/mm3 (0.0-0.8) 07/29/17 21:44 Eos # 0.1 K/mm3 (0.0-0.4) 07/29/17 21:44 Baso # 0.0 K/mm3 (0.0-0.1) 07/29/17 21:44 Seg Neutrophils % 56.6 % (40.0-70.0) 07/29/17 21:44 Seg Neutrophils # 2.7 K/mm3 (1.8-7.7) 07/29/17 21:44 Heparin Anti-Xa, Unfract Negative (Negative) 07/30/17 06:11 VBG pH 7.305 (7.320-7.420) L 07/29/17 21:44 Sodium 139 mmol/L (137-145) 08/03/17 15:00 Potassium 4.7 mmol/L (3.6-5.0) 08/03/17 15:00 Chloride 102.9 mmol/L (98-107) 08/03/17 15:00 Carbon Dioxide 23 mmol/L (22-30) 08/03/17 15:00 Anion Gap 18 mmol/L 08/03/17 15:00 BUN 18 mg/dL (9-20) 08/03/17 15:00 Creatinine 0.7 mg/dL (0.8-1.5) L 08/03/17 15:00 Estimated GFR > 60 ml/min 08/03/17 15:00 BUN/Creatinine Ratio 26 % 08/03/17 15:00 Glucose 72 mg/dL (75-100) L 08/03/17 15:00 POC Glucose 146 (70-105) H 08/08/17 12:27 Hemoglobin A1c 9.4 % (4-6) H 07/30/17 06:11 Lactic Acid 0.90 mmol/L (0.7-2.0) 07/30/17 00:10 Calcium 8.5 mg/dL (8.4-10.2) D 08/03/17 15:00 Phosphorus 3.50 mg/dL (2.5-4.5) 07/30/17 00:02 Magnesium 1.30 mg/dL (1.7-2.3) L 07/30/17 00:02 Total Bilirubin 0.20 mg/dL (0.1-1.2) 07/29/17 21:44 AST 278 units/L (5-40) H 07/29/17 21:44 ALT 115 units/L (7-56) H 07/29/17 21:44 Alkaline Phosphatase 214 units/L (35-129) H 07/29/17 21:44 Ammonia 33.0 umol/L (25-60) 07/30/17 01:10 Total Protein 6.6 g/dL (6.3-8.2) 07/29/17 21:44 Albumin 3.5 g/dL (3.9-5) L 07/29/17 21:44 Albumin/Globulin Ratio 1.1 % 07/29/17 21:44 Serotonin Release Assay See scanned report 07/30/17 06:11 Vitamin B12 506.7 pg/mL (211-911) 07/30/17 10:13 Folate 15.81 ng/mL (7.3-26.0) 07/30/17 10:13 TSH 2.760 mlU/mL (0.270-4.200) 07/29/17 21:44 Urine Color Red (Yellow) 07/29/17 23: Urine Turbidity Clear (Clear) 07/29/17 23: Urine pH 6.0 (5.0-7.0) 07/29/17 23: Ur Specific [place] 1.014 (1.003-1.030) 07/29/17 23: Urine Protein <15 mg/dl mg/dL (Negative) 07/29/17 23: Urine Glucose (UA) >=500 mg/dL (Negative) 07/29/17 23: Urine Ketones Tr mg/dL (Negative) 07/29/17 23: Urine Blood Neg (Negative) 07/29/17 23: Urine Nitrite Neg (Negative) 07/29/17 23: Urine Bilirubin Neg (Negative) 07/29/17: Urine Urobilinogen < 2.0 mg/dL (<2.0) 07/29/17 23: Ur Leukocyte Esterase Neg (Negative) 07/29/17 23: Urine WBC (Auto) < 1.0 /HPF (0.0-6.0) 07/29/17 23: Urine RBC (Auto) 1.0 /HPF (0.0-6.0) 07/29/17 23: Salicylates < 0.3 mg/dL (2.8-20.0) L 07/29/17 21:44 Urine Opiates Screen Presumptive negative 07/30/17 00:01 Urine Methadone Screen Presumptive negative 07/30/17 00:01 Acetaminophen < 15.0 ug/mL (10.0-30.0) 07/29/17 21:44 Ur Barbiturates Screen Presumptive negative 07/30/17 00:01 Ur Phencyclidine Scrn Presumptive negative 07/30/17 00:01 Ur Amphetamines Screen Presumptive negative 07/30/17 00:01 U Benzodiazepines Scrn Presumptive negative 07/30/17 00:01 Urine Cocaine Screen Presumptive negative 07/30/17 00:01 U Marijuana (THC) Screen Presumptive negative 07/30/17 00:01 Drugs of Abuse Note Disclamer 07/30/17 00:01 Plasma/Serum Alcohol < 0.01 gm% (0-0.07) 07/29/17 21:44 Heparin-induced Plt Ab Negative (Negative) 07/30/17 06:11 UF Heparin High Dose 0 % Release 07/30/17 06:11 IVANA UFH Low Dose 0.1 0 % Release 07/30/17 06:11 IVANA UFH Low Dose 0.5 0 % Release 07/30/17 06:11 <HANANE FISH Mynor - Last Filed: 08/22/17 17:46> Assessment and Plan Assessment and plan: I saw and evaluated the patient. I agree with the findings and the plan of care as documented in the Nurse Practitioner's~note, with the following corrections and additions. Hospitalist Physical - Constitutional Vitals: Temp Pulse Resp BP Pulse Ox 98.3 F 83 20 138/84 99 08/09/17 16:12 08/09/17 16:12 08/09/17 16:12 08/09/17 16:12 08/09/17 16:12 Results - Labs CBC & Chem 7: 08/03/17 15:00 08/03/17 15:00 Labs: Laboratory Last Values WBC 7.5 K/mm3 (4.5-11.0) 08/03/17 15:00 RBC 3.27 M/mm3 (3.65-5.03) L 08/03/17 15:00 Hgb 9.6 gm/dl (11.8-15.2) L 08/03/17 15:00 Hct 29.2 % (35.5-45.6) L 08/03/17 15:00 MCV 89 fl (84-94) 08/03/17 15:00 MCH 29 pg (28-32) 08/03/17 15:00 MCHC 33 % (32-34) 08/03/17 15:00 RDW 19.0 % (13.2-15.2) H 08/03/17 15:00 Plt Count 286 K/mm3 (140-440) 08/03/17 15:00 Lymph % (Auto) 35.4 % (13.4-35.0) H 07/29/17 21:44 [place] % (Auto) 5.8 % (0.0-7.3) 07/29/17 21:44 Eos % (Auto) 1.2 % (0.0-4.3) 07/29/17 21:44 Baso % (Auto) 1.0 % (0.0-1.8) 07/29/17 21:44 Lymph # 1.7 K/mm3 (1.2-5.4) 07/29/17 21:44 [place] # 0.3 K/mm3 (0.0-0.8) 07/29/17 21:44 Eos # 0.1 K/mm3 (0.0-0.4) 07/29/17 21:44 Baso # 0.0 K/mm3 (0.0-0.1) 07/29/17 21:44 Seg Neutrophils % 56.6 % (40.0-70.0) 07/29/17 21:44 Seg Neutrophils # 2.7 K/mm3 (1.8-7.7) 07/29/17 21:44 Heparin Anti-Xa, Unfract Negative (Negative) 07/30/17 06:11 VBG pH 7.305 (7.320-7.420) L 07/29/17 21:44 Sodium 139 mmol/L (137-145) 08/03/17 15:00 Potassium 4.7 mmol/L (3.6-5.0) 08/03/17 15:00 Chloride 102.9 mmol/L (98-107) 08/03/17 15:00 Carbon Dioxide 23 mmol/L (22-30) 08/03/17 15:00 Anion Gap 18 mmol/L 08/03/17 15:00 BUN 18 mg/dL (9-20) 08/03/17 15:00 Creatinine 0.7 mg/dL (0.8-1.5) L 08/03/17 15:00 Estimated GFR > 60 ml/min 08/03/17 15:00 BUN/Creatinine Ratio 26 % 08/03/17 15:00 Glucose 72 mg/dL (75-100) L 08/03/17 15:00 POC Glucose 218 (70-105) H 08/09/17 15:59 Hemoglobin A1c 9.4 % (4-6) H 07/30/17 06:11 Lactic Acid 0.90 mmol/L (0.7-2.0) 07/30/17 00:10 Calcium 8.5 mg/dL (8.4-10.2) D 08/03/17 15:00 Phosphorus 3.50 mg/dL (2.5-4.5) 07/30/17 00:02 Magnesium 1.30 mg/dL (1.7-2.3) L 07/30/17 00:02 Total Bilirubin 0.20 mg/dL (0.1-1.2) 07/29/17 21:44 AST 278 units/L (5-40) H 07/29/17 21:44 ALT 115 units/L (7-56) H 07/29/17 21:44 Alkaline Phosphatase 214 units/L (35-129) H 07/29/17 21:44 Ammonia 33.0 umol/L (25-60) 07/30/17 01:10 Total Protein 6.6 g/dL (6.3-8.2) 07/29/17 21:44 Albumin 3.5 g/dL (3.9-5) L 07/29/17 21:44 Albumin/Globulin Ratio 1.1 % 07/29/17 21:44 Serotonin Release Assay See scanned report 07/30/17 06:11 Vitamin B12 506.7 pg/mL (211-911) 07/30/17 10:13 Folate 15.81 ng/mL (7.3-26.0) 07/30/17 10:13 TSH 2.760 mlU/mL (0.270-4.200) 07/29/17 21:44 Urine Color Red (Yellow) 07/29/17 23:26 Urine Turbidity Clear (Clear) 07/29/17 23:26 Urine pH 6.0 (5.0-7.0) 07/29/17 23:[address] 1.014 (1.003-1.030) 07/29/17 23:26 Urine Protein <15 mg/dl mg/dL (Negative) 07/29/17 23:26 Urine Glucose (UA) >=500 mg/dL (Negative) 07/29/17 23:26 Urine Ketones Tr mg/dL (Negative) 07/29/17 23: Urine Blood Neg (Negative) 07/29/17 23: Urine Nitrite Neg (Negative) 07/29/17 23:26 Urine Bilirubin Neg (Negative) 07/29/17 23: Urine Urobilinogen < 2.0 mg/dL (<2.0) 07/29/17 23:26 Ur Leukocyte Esterase Neg (Negative) 07/29/17 23:26 Urine WBC (Auto) < 1.0 /HPF (0.0-6.0) 07/29/17 23:26 Urine RBC (Auto) 1.0 /HPF (0.0-6.0) 07/29/17 23:26 Salicylates < 0.3 mg/dL (2.8-20.0) L 07/29/17 21:44 Urine Opiates Screen Presumptive negative 07/30/17 00:01 Urine Methadone Screen Presumptive negative 07/30/17 00:01 Acetaminophen < 15.0 ug/mL (10.0-30.0) 07/29/17 21:44 Ur Barbiturates Screen Presumptive negative 07/30/17 00:01 Ur Phencyclidine Scrn Presumptive negative 07/30/17 00:01 Ur Amphetamines Screen Presumptive negative 07/30/17 00:01 U Benzodiazepines Scrn Presumptive negative 07/30/17 00:01 Urine Cocaine Screen Presumptive negative 07/30/17 00:01 U Marijuana (THC) Screen Presumptive negative 07/30/17 00:01 Drugs of Abuse Note Disclamer 07/30/17 00:01 Plasma/Serum Alcohol < 0.01 gm% (0-0.07) 07/29/17 21:44 Heparin-induced Plt Ab Negative (Negative) 07/30/17 06:11 UF Heparin High Dose 0 % Release 07/30/17 06:11 IVANA UFH Low Dose 0.1 0 % Release 07/30/17 06:11 IVANA UFH Low Dose 0.5 0 % Release 07/30/17 06:11
[2017-08-08] MEDS: DESYREL PO SCH (22:08)
[2017-08-09] MEDS: NOVOLOG SUB-Q SCH ×3 (00:40→13:11)
[2017-08-09] MEDS: NACL 0.9% 1000 ML 1,000 ML IV SCH (04:33)
--- NOTE | 2017-08-09 11:16 | Progress Note ---
Assessment and Plan Assessment and plan: Patient is a 42-year-old man history of insulin dependent diabetes mellitus, hepatitis C, tobacco dependency and IVDA who presents with altered mental status , hyperglycemia and unresponsive state found in a bathtub in his own feces. Was put on 1013 due to suicide ideations. Suicidal Ideations Continue 1012 pending placement at [facility] as per Psych Patient medically clear, all his issue has been addressed. Mental Health following Depression Continue on home antidepressant pills Mental Health following Diabetes mellitus/Hyperglycemic nonketotic com Patient hypoglycemia in the AM improving Increased dose of metformin to 850 mg BID Continue 20 units of Levemir at HS Accu-Chek before meals and at bedtime Sliding scale insulin/NovoLog ADA carbohydrate consistent diet Diarrhea Improved No sources of causes, most likely chronic Started on imodium Sacral pressure ulcer unstageable. Wound care consulted Polysubstance abuse Counseled Metabolic encephalopathy Resolved Thrombocytopenia Resolved DVT prophylaxis Lovenox, SCDs History Interval history: Patient denies having pain or discomfort at present time. Labs or nursing notes reviewed. Hospitalist Physical - Constitutional Vitals: Temp Pulse Resp BP Pulse Ox 98.0 F 70 20 98/62 100 08/09/17 07:17 08/09/17 07:17 08/09/17 07:17 08/09/17 07:17 08/09/17 07:17 General appearance: Present: no acute distress, well-nourished, disheveled, malodorous, other (flat affect) - EENT Eyes: Present: PERRL ENT: hearing intact - Neck Neck: Present: supple - Respiratory Respiratory effort: normal Respiratory: bilateral: CTA - Cardiovascular Rhythm: regular Heart Sounds: Present: S1 & S2 - Extremities Extremities: no ischemia - Abdominal General gastrointestinal: soft, non-tender - Integumentary Integumentary: Present: clear, warm, dry - Psychiatric Psychiatric: depressed, other (No eye contact with providers ) - Neurologic Neurologic: moves all extremities - Allied Health Allied health notes reviewed: nursing Results - Labs CBC & Chem 7: 08/03/17 15:00 08/03/17 15:00 Labs: Laboratory Last Values WBC 7.5 K/mm3 (4.5-11.0) 08/03/17 15:00 RBC 3.27 M/mm3 (3.65-5.03) L 08/03/17 15:00 Hgb 9.6 gm/dl (11.8-15.2) L 08/03/17 15:00 Hct 29.2 % (35.5-45.6) L 08/03/17 15:00 MCV 89 fl (84-94) 08/03/17 15:00 MCH 29 pg (28-32) 08/03/17 15:00 MCHC 33 % (32-34) 08/03/17 15:00 RDW 19.0 % (13.2-15.2) H 08/03/17 15:00 Plt Count 286 K/mm3 (140-440) 08/03/17 15:00 Lymph % (Auto) 35.4 % (13.4-35.0) H 07/29/17 21:44 [place] % (Auto) 5.8 % (0.0-7.3) 07/29/17 21:44 Eos % (Auto) 1.2 % (0.0-4.3) 07/29/17 21:44 Baso % (Auto) 1.0 % (0.0-1.8) 07/29/17 21:44 Lymph # 1.7 K/mm3 (1.2-5.4) 07/29/17 21:44 [place] # 0.3 K/mm3 (0.0-0.8) 07/29/17 21:44 Eos # 0.1 K/mm3 (0.0-0.4) 07/29/17 21:44 Baso # 0.0 K/mm3 (0.0-0.1) 07/29/17 21:44 Seg Neutrophils % 56.6 % (40.0-70.0) 07/29/17 21:44 Seg Neutrophils # 2.7 K/mm3 (1.8-7.7) 07/29/17 21:44 Heparin Anti-Xa, Unfract Negative (Negative) 07/30/17 06:11 VBG pH 7.305 (7.320-7.420) L 07/29/17 21:44 Sodium 139 mmol/L (137-145) 08/03/17 15:00 Potassium 4.7 mmol/L (3.6-5.0) 08/03/17 15:00 Chloride 102.9 mmol/L (98-107) 08/03/17 15:00 Carbon Dioxide 23 mmol/L (22-30) 08/03/17 15:00 Anion Gap 18 mmol/L 08/03/17 15:00 BUN 18 mg/dL (9-20) 08/03/17 15:00 Creatinine 0.7 mg/dL (0.8-1.5) L 08/03/17 15:00 Estimated GFR > 60 ml/min 08/03/17 15:00 BUN/Creatinine Ratio 26 % 08/03/17 15:00 Glucose 72 mg/dL (75-100) L 08/03/17 15:00 POC Glucose 88 (70-105) 08/09/17 07:38 Hemoglobin A1c 9.4 % (4-6) H 07/30/17 06:11 Lactic Acid 0.90 mmol/L (0.7-2.0) 07/30/17 00:10 Calcium 8.5 mg/dL (8.4-10.2) D 08/03/17 15:00 Phosphorus 3.50 mg/dL (2.5-4.5) 07/30/17 00:02 Magnesium 1.30 mg/dL (1.7-2.3) L 07/30/17 00:02 Total Bilirubin 0.20 mg/dL (0.1-1.2) 07/29/17 21:44 AST 278 units/L (5-40) H 07/29/17 21:44 ALT 115 units/L (7-56) H 07/29/17 21:44 Alkaline Phosphatase 214 units/L (35-129) H 07/29/17 21:44 Ammonia 33.0 umol/L (25-60) 07/30/17 01:10 Total Protein 6.6 g/dL (6.3-8.2) 07/29/17 21:44 Albumin 3.5 g/dL (3.9-5) L 07/29/17 21:44 Albumin/Globulin Ratio 1.1 % 07/29/17 21:44 Serotonin Release Assay See scanned report 07/30/17 06:11 Vitamin B12 506.7 pg/mL (211-911) 07/30/17 10:13 Folate 15.81 ng/mL (7.3-26.0) 07/30/17 10:13 TSH 2.760 mlU/mL (0.270-4.200) 07/29/17 21:44 Urine Color Red (Yellow) 07/29/17: Urine Turbidity Clear (Clear) 07/29/17: Urine pH 6.0 (5.0-7.0) 07/29/17 23: Ur Specific [place] 1.014 (1.003-1.030) 07/29/17 23: Urine Protein <15 mg/dl mg/dL (Negative) 07/29/17: Urine Glucose (UA) >=500 mg/dL (Negative) 07/29/17 23: Urine Ketones Tr mg/dL (Negative) 07/29/17: Urine Blood Neg (Negative) 07/29/17: Urine Nitrite Neg (Negative) 07/29/17 Urine Bilirubin Neg (Negative) 07/29/17: Urine Urobilinogen < 2.0 mg/dL (<2.0) 07/29/17: Ur Leukocyte Esterase Neg (Negative) 07/29/17: Urine WBC (Auto) < 1.0 /HPF (0.0-6.0) 07/29/17: Urine RBC (Auto) 1.0 /HPF (0.0-6.0) 07/29/17: Salicylates < 0.3 mg/dL (2.8-20.0) L 07/29/17 21:44 Urine Opiates Screen Presumptive negative 07/30/17 00:01 Urine Methadone Screen Presumptive negative 07/30/17 00:01 Acetaminophen < 15.0 ug/mL (10.0-30.0) 07/29/17 21:44 Ur Barbiturates Screen Presumptive negative 07/30/17 00:01 Ur Phencyclidine Scrn Presumptive negative 07/30/17 00:01 Ur Amphetamines Screen Presumptive negative 07/30/17 00:01 U Benzodiazepines Scrn Presumptive negative 07/30/17 00:01 Urine Cocaine Screen Presumptive negative 07/30/17 00:01 U Marijuana (THC) Screen Presumptive negative 07/30/17 00:01 Drugs of Abuse Note Disclamer 07/30/17 00:01 Plasma/Serum Alcohol < 0.01 gm% (0-0.07) 07/29/17 21:44 Heparin-induced Plt Ab Negative (Negative) 07/30/17 06:11 UF Heparin High Dose 0 % Release 07/30/17 06:11 IVANA UFH Low Dose 0.1 0 % Release 07/30/17 06:11 IVANA UFH Low Dose 0.5 0 % Release 07/30/17 06:11
[2017-08-09] MEDS ORDERED: LEVEMIR SUB-Q SCH ×2 (12:30→22:00)
--- NOTE | 2017-08-09 12:45 | Progress Note ---
Subjective - Reason for Consult Consult date: 08/09/17 Reason for consult: Psychiatry Follow-up - Chief Complaint Chief complaint: "I am okay" Patient is a 42-year-old man preseting to [facility] with AMS with an history of insulin dependent diabetes mellitus and hepatitis C who was found in a bathtub in his feces. Today patient is calm, but uncooperative during the assessment. He answered very few questions when asked. He did state, "I don't want to continue this conversation." Per the staff, no behavioral disturbance overnight. Mental Status Exam - Vital signs Last Vital Signs Temp 98.0 F 08/09/17 07:17 Pulse 70 08/09/17 07:17 Resp 20 08/09/17 07:17 BP 98/62 08/09/17 07:17 Pulse Ox 100 08/09/17 07:17 - Exam Narrative exam: MSE: Appearance: calm, uncooperative Behavior: regular eye contact Speech: regular rate and tone Mood: withdrawn Affect: flat Thought Process: circumstantial Thought Content: no gestures of SI/HI's and AVH's Motor Activity: lying in bed Cognition: A/O x3 Insight: variable Judgment: variable Assessment and Plan Impression: Per collateral from his mother Ms Neda Plasencia - Hx of Substance Abuse (meth). MDD Severe Type. Today patient is calm, but uncooperative during the assessment. Patient continue to be uncooperative during most interviews. He refusing to answers question per the MMSE (A request per [facility]). Recommendation/Plan: Continue 1013. Patient accepted at [facility] pending transport time. Continue Prozac 20 mg PO daily for depression and continue Trazodone 50 mg PO HS for sleep. Discussed possible suicidality/medication induced milli with patient reference antidepressants. Also, discussed possible priapism with patient reference Trazodone.
[2017-08-09] MEDS: GLUCOPHAGE PO SCH (13:12)
[2017-08-09] MEDS: PROzac PO SCH (13:15)
[2017-08-09] MEDS: XANAX PO SCH (13:15)
[2017-08-09] MEDS: LOVENOX SUB-Q SCH (13:15)
[2017-08-09 16:18] VITALS: BP 138/84
== END 2017-08-09 17:00 | DRG 637 ==
LOC: ED 21:47 → CC1 07-30 02:28 → 3A 07-31 01:35
PROVIDERS: ADMIT Internal Medicine; ATTEND Internal Medicine
DX: E13.11 Other specified diabetes mellitus with ketoacidosis with coma (principal); G93.41 Metabolic encephalopathy; R45.851 Suicidal ideations; F32.2 Major depressive disorder, single episode, severe without psychotic features; B19.20 Unspecified viral hepatitis C without hepatic coma; Z83.3 Family history of diabetes mellitus; Z82.49 Family history of ischemic heart disease and other diseases of the circulatory system; D69.6 Thrombocytopenia, unspecified; L89.150 Pressure ulcer of sacral region, unstageable; F19.10 Other psychoactive substance abuse, uncomplicated
CPT/HCPCS: 36415; 70450; 71010; 80048; 80053; 80307; 80320; 81001; 82140; 82607; 82747; 82805; 82962; 83036; 83735; 84100; 84443; 85025; 85027; 86022; 87493; 93005; 93010; 96361; 96365; 99285; G0480; J1650; J1815; J1818; J2270; J2405; J3475; J7030